=== PATIENT | male | born 1955 | race Caucasian/White ===

== ENCOUNTER → 2016-04-07 | Outpatient (CLI) | payer MEDICARE ==
[~2016-04-07] MED LIST: AC325T PO; ALPR1TAB72 PO; AMOX500C2 PO; ARPZ10T PO; ASP325T; ASP81CT PO; ASPI-808 PO; ATOR40TA70 PO; BUPR-42 PO; BUPR300T PO; BUSP10TA95 PO; CALC-654 PO; CALC0.253 PO; CALC0.5C2; CARV25TA PO; CLON1TAB3 PO; CODE-54 PO; DESV50TA; DOCU-143 PO; DOCU100T7 PO; DOXY-227 PO; FERR-84 PO; FNT100TD TD; FURO20TA4 PO; FURO40TA4 PO; GBPN600T PO; GFCD10B PO; HYDR-3456 PO; INSU100I14 SQ; INSU100V; IPRA3AMP19 IH; LAMO200T14; LAMO200T2 PO; LEVO175T6 PO; LEVO200T6 PO; ME-C1TAB PO; METO25TA PO; MULT-35 PO; NIRAVAM; NOVOLOG PUMP; OMG1KC PO; OXYC-202 PO; PRAV80TA2; PREG75CA PO; SERT100T8 PO; SERT50TA9 PO; SRTR100T; VENL150C53 PO; ZOLP12.5; [UNRECOGNIZED DRUG - OTHER]; venlafaxine PO
--- OUTSIDE RECORDS SUMMARY | 2016-04-07 13:34 | XMS REPORT | Continuity of Care Document ---
Author Author [facility] Organization [facility] Address Unknown Phone Unavailable Care Team Providers Care City Marshal Name Role Phone Humza Kapoor PCP [phone] Source Comments Some departments are not documenting in the electronic medical record. If you do not see the information that you expected, contact Release of Information in the Health Information Management department at [phone] for further assistance in locating additional records.[facility] Active Allergies and Adverse Reactions No Known Allergies Current Medications Prescription Sig. Disp. Refills Start End Date Status Date metoprolol XL (TOPROL XL) Take 12.5 mg by mouth Active 25 mg tablet daily. furosemide (LASIX) 40 mg Take 40 mg by mouth every Active tablet 48 hours. fentaNYL (DURAGESIC) 75 Apply 1 Patch to top of Active mcg/hr patch skin as directed every 72 hours aspirin EC 81 mg tablet Take 81 mg by mouth Active daily. fish oil /omega-3 fatty Take 1 Cap by mouth Active acids (SEA-OMEGA) daily. 340/1000 mg capsule PV W-O NADIA/FERROUS Take by mouth. Active FUMARATE/FA (M-VIT PO) ASCORBATE CALCIUM Take by mouth. Active (VITAMIN C PO) docusate (COLACE) 100 mg Take 100 mg by mouth Active capsule daily. ferrous sulfate 325 mg Take 325 mg by mouth Active (65 mg iron) tablet daily. nitroglycerin (NITROSTAT) Place 0.3 mg under tongue Active 0.3 mg tablet every 5 minutes as needed. ATORVASTATIN CALCIUM Take 40 mg by mouth at Active (LIPITOR PO) bedtime daily. insulin aspart (NOVOLOG) Inject 30 Units into Active 100 unit/mL injection area(s) as directed once. Indications: Uses 30 units daily with insulin pump insulin pump -ASPART- by SubQ Pump route. Active Patients Own gabapentin (NEURONTIN) Take 600 mg by mouth 07/19/19 Active 600 mg tablet three times daily. 16 HYDROcodone/acetaminophen Take 1 Tab by mouth every 05/29/19 Active (+) (LORTAB, NORCO) 6 hours as needed 16 10/325 mg tablet levothyroxine (SYNTHROID) Take 200 mcg by mouth 07/23/19 Active 200 mcg tablet daily. 16 sertraline (ZOLOFT) 100 2.5 Tabs daily. 225 Tab 1 10/20/19 Active mg tablet Indications: DEPRESSION 16 buPROPion XL (WELLBUTRIN Take 1 Tab by mouth every 90 Tab 3 12/31/19 Active XL) 150 mg tablet morning. Indications: 16 ANXIETY WITH DEPRESSION buPROPion XL (WELLBUTRIN Take 1 Tab by mouth every 90 Tab 3 12/31/19 Active XL) 300 mg tablet morning. Indications: 16 ANXIETY WITH DEPRESSION pregabalin (LYRICA) 75 mg Take 75 mg by mouth twice Active capsule daily. busPIRone (BUSPAR) 10 mg Take 1 tablet 3 times a 90 Tab 5 01/07/20 Active tablet day for anxiety 16 clonazePAM (KLONOPIN) 1 For anxiety. Take 1/2 a 45 Tab 4 01/07/20 Active mg tablet tab in AM, 1 tab at 16 night. Indications: Anxiety Active Problems Problem Noted Date Dysthymia 11/07/2013 MDD (major depressive disorder), recurrent, in partial remission (HCC) 05/14 HTN (hypertension) 04/08/2013 HLD (hyperlipidemia) 04/08/2013 CAD (coronary artery disease) 04/08/2013 Hypothyroid 04/08/2013 Diabetes (HCC) 04/08/2013 Anemia 04/08/2013 MARGIE (generalized anxiety disorder) 04/08/2013 Resolved Problems Problem Noted Date Resolved Date MDD (major depressive disorder), recurrent episode, mild (HCC) 10/22/2014 01/07/2016 MDD (major depressive disorder), recurrent episode, moderate (HCC) 201301/07/2016 MDD (major depressive disorder), recurrent episode, severe (HCC) 04/08/2013 01/07/2016 Social History Tobacco Use Types Packs/Day Years Used Date Never Smoker Smokeless Tobacco: Never Used Alcohol Use Drinks/Week oz/Week Comments No 0 Standard 0.0 drinks or equivalent Last Filed Vital Signs Vital Sign Reading Time Taken Blood Pressure 101/74 01/07/2016 11:26 AM CDT Pulse 55 01/07/2016 11:26 AM CDT Temperature - - Respiratory Rate 15 10/08/2015 11:43 AM CDT Height 1.778 m (5' 10") 01/07/2016 11:26 AM CDT Weight 68.947 kg (152 lb) 01/07/2016 11:26 AM CDT Body Mass Index 21.81 01/07/2016 11:26 AM CDT Oxygen Saturation - - Plan of Care Health Maintenance Due Date Last Done Comments Hepatitis C Screening 1954 Physical (Comprehensive) 1961 Exam Pertussis Vaccine 1965 Tetanus Vaccine 1971 Colorectal Cancer 2004 Screening Shingles Vaccine 2014 Influenza Vaccine 12/03/2015 Results from Last 3 Months Not on file
[2016-04-07 13:57] LABS: BASOPHILS % (AUTO) 1 % (0-10); EOSINOPHILS # (AUTO) 0.1 10^3/uL (0.0-0.3); EOSINOPHILS % (AUTO) 2 % (0-10); LYMPHOCYTES # (AUTO) 1.3 X 10^3 (1.0-4.0); LYMPHOCYTES % (AUTO) 23 % (12-44); MEAN CORPUSCULAR HEMOGLOBIN 32 PG (25-34); MEAN CORPUSCULAR HGB CONC 34 G/DL (32-36); MEAN CORPUSCULAR VOLUME 92 FL (80-99); MEAN PLATELET VOLUME 9.6 FL (7.4-10.4); MONOCYTES # (AUTO) 0.5 X 10^3 (0.0-1.0); MONOCYTES % (AUTO) 8 % (0-12); NEUTROPHILS % (AUTO) 67 % (42-75); PLATELET COUNT 155 10^3/uL (130-400); RED BLOOD COUNT 3.93 10^6/uL (4.35-5.85); RED CELL DISTRIBUTION WIDTH 12.8 % (10.0-14.5); WHITE BLOOD COUNT 5.9 10^3/uL (4.3-11.0)
[2016-04-07 13:59] LABS: BILIRUBIN,URINE NEGATIVE (NEGATIVE); KETONES,URINE NEGATIVE (NEGATIVE); LEUKOCYTE ESTERASE ,URINE NEGATIVE (NEGATIVE); NITRITE,URINE NEGATIVE (NEGATIVE); PH,URINE 6 (5-9); PROTEIN,URINE NEGATIVE (NEGATIVE); UROBILINOGEN,URINE NORMAL (NORMAL)
[2016-04-07 14:09] LABS: SQUAMOUS EPITHELIAL CELL,UR RARE /HPF
[2016-04-07 14:12] LABS: INR 0.9 (0.8-1.4); PROTHROMBIN TIME PATIENT 12.3 SEC (12.2-14.7)
[2016-04-07 14:19] LABS: CALCIUM 8.9 MG/DL (8.5-10.1); CREATININE SERUM 1.22 MG/DL (0.60-1.30); POTASSIUM 3.9 MMOL/L (3.6-5.0)
== END ==
LOC: LAB 13:29
PROVIDERS: ATTEND Orthopaedic Surgery
DX: S82.851A Displaced trimalleolar fracture of right lower leg, initial encounter for closed fracture (principal); Z79.01 Long term (current) use of anticoagulants; X58.XXXA Exposure to other specified factors, initial encounter; Y99.8 Other external cause status
CPT/HCPCS: 36415; 80048; 81000; 85025; 85610; 87081

== ENCOUNTER 2016-04-14 10:48 | Inpatient (IN) | payer MEDICARE ==
[~2016-04-14] VITALS: Ht 177.8 cm; Wt 63.6 kg
[~2016-04-14 10:48] MED LIST changes: -ASPI-808 PO; -BUPR-42 PO; -BUSP10TA95 PO; -CALC-654 PO; -CLON1TAB3 PO; -DOCU-143 PO; -FERR-84 PO; -INSU100V; -LEVO200T6 PO; -MULT-35 PO; -OXYC-202 PO; -PREG75CA PO; -SERT100T8 PO; -SERT50TA9 PO
[2016-04-14 14:10] VITALS: BP 112/50
--- OUTSIDE RECORDS SUMMARY | 2016-04-14 14:37 | XMS REPORT | Continuity of Care Document ---
Author Author [facility] Organization [facility] Address Unknown Phone Unavailable Care Team Providers Care Shop And Alteration Tailor Name Role Phone Humza Kapoor PCP [phone] Source Comments Some departments are not documenting in the electronic medical record. If you do not see the information that you expected, contact Release of Information in the Health Information Management department at [phone] for further assistance in locating additional records.[facility] Active Allergies and Adverse Reactions No Known [...]
--- NOTE | 2016-04-14 15:04 | ST Cognitive Linguistic Eval ---
Speech Evaluation-General Medical Diagnosis Onset Date: Mar 30, 2016 Therapy Diagnosis Therapy Diagnosis: Questionable Cognitive Impairment Precautions Precautions/Isolations: Fall Prevention, Standard Precautions Referral Referring Physician: Dr. Aman May Reason for Referral: Evaluation/Treatment Cognitive Screen Speech PLF-Current Status Prior Level of Function The patient denied any previous cognitive, speech, or language deficits prior to or throughout his recent hospitalization. Subjective The patient was recently admitted to [facility] following a right foot amputation. The patient greeted the clinician appropriately and agreed to participate in the cognitive screen on this date. Language Eval: Auditory Comprehends Simple Yes/No Ques: Functional Indent/Objects Multiple [place]: Functional Ident/Pics in Multiple [place]: Functional Follows Complex Directions: Functional Follows General Conversations: Functional Language Eval: Verbal Language Completes Spontaneous Greeting: Functional Produces Auto, Serial Info: Functional Imitates Simple Words/Phrases: Functional Word Finding: Functional Requests Basic Needs: Functional States Basic Personal Info: Functional Expresses Complex Ideas: Functional Cognitive Patient Orientation The patient was alert and oriented x 3. Objective Cognitive Domain Attention: WNL Memory: WNL Problem Solving: Functional Objective Impression The patient demonstrated cognitive linguistic skills within normal limits for completion of ADL's. Communication/Social Cognition Comprehension: 6 Expression: 7 Social Interaction: 7 Problem Solvin Memory: 7 Speech Patient Assess Expression of Ideas/Wants: Expression (4) Understanding V[place]al Content: Understands (4) Brief Interview-Mental Status: Yes Repetition of Three Words: Three (3) Temporal Orientation: Year: Correct (3) Temporal Orientation: Month: Accurate within 5 days(2) Temporal Orientation: Day: Correct (1) Recall : Wear: Yes, no cue required (2) Recall : Color: Yes, no cue required (2) Recall : Bed: Yes, no cue required (2) Speech-Plan Treatment Plan Speech Therapy Treatment Plan: Discontinue ST (eval, only.) Rehab Potential: Good Safety Risks/Education Teaching Recipient: Patient, Family Teaching Methods: Discussion Response to Teaching: Verbalize Understanding Education Topics Provided: Plan of Care Time Speech Therapy Time In: 14:18 Speech Therapy Time Out: 14:43 Total Billed Time: 25 Billed Treatment Time 1, FLORENCIO CURTIS [address] ST Apr 14, 2016 15:03
--- NOTE | 2016-04-14 16:05 | Occupational Therapy Eval ---
OT Evaluation-General/PLF Medical Diagnosis Admission Date Apr 14, 2016 at 14:10 Medical Diagnosis: s/p R BKA Onset Date: Mar 30, 2016 Therapy Diagnosis Therapy Diagnosis: weakness, decreased self care, decreased activity tolerance , decr funct mob Height/Weight Height (Feet): 5 Height (Inches): 10 Weight (Pounds): 160 Weight (Ounces): 9.0 Precautions Precautions/Isolations: Fall Prevention, Standard Precautions Weight Bear Status Weight Bearing Restriction: Weight Bearing/Tolerated Location Restriction: LT FOOT Referral Physician: Lalo Referral Reason: Evaluation/Treatment Medical History Pertinent Medical History: CABG (1997), DM, HTN, ID, Neuropathy, PVD Additional Medical History Depression, anxiety, thyroid disease, anemia, kidney disease. Charcot foot Current History Pt had displaced trimalleolar fx R ankle BKA on 04-12-16 Reviewed History: Yes Social History Home: Apartment (main floor) Current Living Status: Alone Entry Into Home: Level Entry ADL-Prior Level of Function ADL PLOF Comments Pt reported that he was independent with all his basic self care needs prior to ankle fx. He had someone to help him a couple times a month for cleaning and laundry but otherwise managed home care. 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 DME/Equipment Comments One bathroom has a walk in shower with a lip and the other has a bathtub. No grab bars installed Occupation: professor at [employer] Drive Self: Yes OT Current Status Subjective Pt seen in room, up in w/c, agreeable to OT. Pain reported 0/10 at rest and with activity Appearance Alert, cooperative Mental Status/Objective Patient Orientation: Person, Place, Time, Situation Attachments: Other-See Comments (dressing on R lower leg is not to be removed) Current Glasses/Contacts: Yes (reading) Hearing Aids: No Dentures/Partials: No Hand Dominance: Right Upper Extremity ROM WFL bilat. Pt reported some decrease at end range R shoulder. Upper Extremity Sensation No problems with decreased sensation in UEs Upper Extremity Strength Grossly 4/5 bilat Edema: No UE edema noted. Some edema R lower leg ADL-Treatment ADL-Current Pt declined bathing and dressing - will do tomorrow. Functional [place] Measure 0=Not Assessed/NA 4=Minimal Assistance 1=Total Assistance 5=Supervision or Setup 2=Maximal Assistance 6=Modified [place] 3=Moderate Assistance 7=Complete IndependenceIRFPAI Quality Coding Scale 6 Independent with activity with or without an assistive device 5 Patient requires set up or clean up by helper. Patient completes activity by themselves 4 Supervision or touching assist (CGA). [place] provide cues , steadying assist 3 The helper provides less than half the effort to complete the activity 2 The helper provides more than half the effort to complete the activity 1 Dependent. The helper does all the effort to complete an activity 7 Patient refused to complete or attempt activity 9 The patient did not perform the activity before the current illness or injury 88 Not attempted due to Medical conditions or safety concerns Eating (FIM): 7 (No dentures, No help needed to open packages or cut up food) Eating (QC): 6 Transfers (B, C, W/C) (FIM): 4 (Close CGA, FWW. Pt educ for hand placement. pt educ for locking brakes on w/c) Toilet/Commode Transfer (FIM): 4 (Close CGA, FWW, BSC over toilet, grab bar. Pt educ for hand placement, walker placement) Other Treatments Co-tx with PT due to decreased activity tolerance, fatigue after transfer, decreased mobility. OT worked on ADLs, transfers and UE placement/use. PT worked on functional mobility, transfers, LE function. Education OT Patient Education: Modified ADL techniques, Progress toward Goal/Update tx plan (tx plan), Purpose of tx/functional activities, Reviewed precautions, Rehab process, Safety issues, Transfer techniques, Use of adapted equipment Teaching Recipient: Patient Teaching Methods: Demonstration, Discussion Response to Teaching: Verbalize Understanding, Return Demonstration, Reinforcement Needed OT Short Term Goals Short Term Goals Time Frame: Apr 21, 2016 Toileting(FIM): 5 Toilet/Commode Transfer(FIM): 5 Shower Transfer(FIM): 5 Additional Short Term Goals: 2-Verbalize Understanding, 3-ImproveStrength/Lizzy 1=Demonstrate adherence to instructed precautions during ADL tasks. 2=Patient will verbalize/demonstrate understanding of assistive devices/ modifications for ADL. 3=Patient will improve strength/tolerance for activity to enable patient to perform ADL's. OT Fci Goals Steam Turbine Operator Goals Time Frame: May 05, 2016 Eating (FIM): 7 Eating (QC): 6 Oral Hygiene (QC): 6 Grooming(FIM): 6 Bathing(FIM): 6 Shower/Bathe Self (QC): 6 Upper Body Dressing(FIM): 6 Upper Body Dressing (QC): 6 Lower Body Dressing(FIM): 6 Lower Body Dressing (QC): 6 On/Off Footwear (QC): 6 Toileting(FIM): 6 Toileting Hygiene (QC): 6 Transfers (B,C,W/C) (FIM): 6 Toilet/Commode Transfer(FIM): 6 Toilet/Commode Transfer (QC): 6 Shower Transfer(FIM): 6 Increase bilat UE strength to 5/5 as needed for standing with FWW for ADLs and transfers Additional Goals: 2-Verbalize Understanding, 3-ImproveStrength/Lizzy 1=Demonstrate adherence to instructed precautions during ADL tasks. 2=Patient will verbalize/demonstrate understanding of assistive devices/ modifications for ADL. 3=Patient will improve strength/tolerance for activity to enable patient to perform ADL's. OT Education/Plan Problem List/Assessment Assessment: Decreased Activ Tolerance, Decreased UE Strength, Dependent Transfers, Impaired Funct Balance, Impaired Self-Care Skills Pt would benefit from skilled OT to increase his independence in basic self care so that he can return safely to his apartment, to drive and to go back to work after amputation R LE with resultant weakness, decreased functional mobility, decreased self care, decreased activity tolerance Discharge Recommendations Plan/Recommendations: Continue POC Barriers to Progress brittle diabetic, delayed wound healing, neuropathy in L foot Target Placement home Patient/Family Goals To return home and eventually go back to work Treatment Plan/Plan of Care Treatment,Training & Education: Yes Patient would benefit from OT for education, treatment and training to promote independence in ADL's, mobility, safety and/or upper extremity function for ADL' s. Plan of Care: ADL Retraining, Functional Mobility, Group Exercise/Act as Ind ( exercise, education, activity tolerance, functional actiities, socialization), UE Funct Exercise/Act, UE Neuromus Re-Ed/Coord, W/C Management Training Treatment Duration: May 05, 2016 # of days/week 5-6 Visits Per Week: 10-11 Minutes/Day (M-F): 75-90 Minutes/Day (Sat/Barrios): PRN Agreement: Yes Rehab Potential: Good Time/GCodes Start Time: 14:48 Stop Time: 15:50 Total Time Billed (hr/min): 62 Billed Treatment Time Visit, 12 minutes eval moderate complexity, 15 minutes ADL, 35 minutes functional activities Co-tx with PT from 1500 to 1550 NOE VILLEGAS OT Apr 14, 2016 16:05
--- NOTE | 2016-04-14 16:19 | Physical Therapy Evaluation ---
PT Evaluation-General Medical Diagnosis Admission Date Apr 14, 2016 at 14:10 Medical Diagnosis: s/p R BKA Onset Date: Mar 30, 2016 Therapy Diagnosis Therapy Diagnosis: weakness, abn gait Height/Weight Height (Feet): 5 Height (Inches): 10.00 Weight (Pounds): 150 Weight (Ounces): 0.0 Precautions Precautions/Isolations: Fall Prevention, Standard Precautions Weight Bear Status Weight Bearing Restriction: Weight Bearing/Tolerated Location Restriction: LT FOOT Referral Physician: Lalo Reason for Referral: Evaluation/Treatment Medical History Pertinent Medical History: CABG (1997; quadruple), DM, HTN, [place], Neuropathy, PVD Additional Medical History anemia, Renal insufficiency with GFR, DVT, high cholesterol, anxiety, depression Current History Pt initially sustained a calcaneal fracture that was stable. He was using a walking boot; during a follow up physician visit, it was found to have worsened with tibial and fibular involvement; it was decided to perform a BKA on the right LE. Reviewed History: Yes Social History Home: Apartment Current Living Status: Alone Entry Into Home: Level Entry Other Obstacles: Pt lives on the ground apartment. insurance agency manager has informed patient that she is happy to make adaptive modifications to meet his needs. Prior/Core FIM Prior Level of Function Functional [place] Measure 0=Not Assessed/NA 4=Minimal Assistance 1=Total Assistance 5=Supervision or Setup 2=Maximal Assistance 6=Modified [place] 3=Moderate Assistance 7=Complete [place] Bed Mobility: 7 Transfers (B,C,W/C) (FIM): 7 Gait: 7 Pt was indep at [facility]. 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 Reports recent amputation with pain that is manageable using pain meds Q4. Currently he denies pain. Pt has multiple questions about course of care and progress. Pt eager to begin therapy. Pain Numeric Pain Scale: 0-No Pain Location: No Pain Reported Objective Patient Orientation: Person, Place, Time, Situation Problem Solving: Fair (needs cues for problem solving at times) ROM/Strength ROM Lower Extremities WFL Strenght Lower Extremities Left LE strength is grossly 5/5. Right LE strength is grossly 3/5 residual joints Integumentary/Posture Integumentary Intact; refer to nursing notes. Bowel Incontinence: No Bladder Incontinence: No Posture normal and symmetrical Neuromuscular (Tone, Coordination, Reflexes) Intact and functional Sensory Vision: Functional Hearing: Functional Hand Dominance: Right Sensation Right Lower Extremit: Intact Sensation Left Lower Extremity: Intact Transfers Functional [place] Measure 0=Not Assessed/NA 4=Minimal Assistance 1=Total Assistance 5=Supervision or Setup 2=Maximal Assistance 6=Modified [place] 3=Moderate Assistance 7=Complete IndependenceIRFPAI Quality Coding Scale 6 Independent with activity with or without an assistive device 5 Patient requires set up or clean up by helper. Patient completes activity by themselves 4 Supervision or touching assist (CGA). [place] provide cues , steadying assist 3 The helper provides less than half the effort to complete the activity 2 The helper provides more than half the effort to complete the activity 1 Dependent. The helper does all the effort to complete an activity 7 Patient refused to complete or attempt activity 9 The patient did not perform the activity before the current illness or injury 88 Not attempted due to Medical conditions or safety concerns Transfers (B, C, W/C) (FIM): 4 Scootin Rollin Roll Left to Right (QC): 5 Supine to/from Sit: 5 Sit to/from Stand: 4 (CGA and cues for sequencing) bed t/f WC(FIM only if WC use): 4 (CGA) Sit to Lying (QC): 5 Lying to Sitting/Side of Bed(Q: 5 Sit to Stand (QC): 4 Chair/[id number]-Zjmrp Xfer(QC): 4 Car Transfer (QC): 3 (assist to stand and guide turn to the wheelchair using FWW) SBA to CGA with transfers for safety; cues for sequencing and hand placement. Gait Does the Patient Walk?: Yes Mode of Locomotion: Both Anticipated Mode of Locomotion: Both Gait (FIM): 2 Distance (FIM): 2=792-41 ft Walk 10 feet (QC): 4 (CGA with FWW (hopping)) Walk 50 ft with 2 Turns(QC): 4 Walk 150 ft (QC): 88 (unsafe to attempt) Walking 10ft on uneven surface: 88 Distance: 50 ft Gait Level of Assist: 4 (close CGA) Gait Persons Needed: 1 Gait Assistive Device: FWW Comments/Gait Description Pt hops; he is careful and cautious with forward and turns. Requires intermittent cues for sequencing and safety. Wheelchair Training Does the Pt Use a Wheelchair?: Yes Wheelchair (FIM): 5 Wheelchair Distance (FIM): 3=150 ft Wheelchair Level of Assist: 5 Wheel 50 ft with 2 turns (QC): 5 Wheel 150 ft (QC): 5 Type of Wheelchair: Manual cues for brakes, and correct use of UE's and left LE to propel Stairs Stairs (FIM): 1 #of Steps: 1 Level of Assist: 4 1 Step (curb) (QC): 4 (close CGA adn skilled cues) 4 Steps (QC): 88 (unsafe to attempt) Assistive Device: Walker 12 Steps (QC): 88 (unsafe) Balance Sitting Static: Normal Sitting Dynamic: Normal Standing Static: Fair Standing Dynamic: Fair Picking up an Object (QC): 88 (unsafe to attempt to bend over) Treatment Co treat with OT due to complexity of new BKA right. PT and OT worked jointly on functional transfers and mobility in room and keane. OT addressed fine motor , ADL's issues whilst PT addressed functional transfers, balance, safety with gait. Pt had many questions on how self care works with transfers and mobility and together, PT and OT were able to address these questions and needs as well as work on such tasks. Assessment/Needs Pt presents post right BKA following a complicated cancaneal fracture. He demonstrates diminished functional safety and balance as well as compromised problem skills with new tasks. He will significantly benefit from skilled PT services to address functional strength (slight deficit noted right LE), functional and safe transfers, wheelchair mobility and progression of gait. Anticipate limited gait distance due to concern of compromised integrity of left LE with repetiive hopping and his history of DM. Pt will most benefit from a mix of wheelchair and ambulation for mobility in home and primarily wheelchair for community mobility. Rehab Potential: Good Post Rehab Potential-Barriers: complicated medical history PT Short Term Goals Short Term Goals Time Frame: Apr 21, 2016 Transfers (B,C,W/C) (FIM): 5 Gait (FIM): 2 Distance (FIM): 3=165-05 ft Gait Assistive Device: FWW PT Electrotyper Helper Goals Fci Goals PT Fci Goals Time Frame: May 05, 2016 Transfers (B,C,W/C) (FIM): 6 Sit to Lying (QC): 6 Lying-Sitting on Side/Bed(QC): 6 Sit to Stand (QC): 6 Rollin Roll Left to Right (QC): 6 Chair/Cwg-bt-Bgzyq Xfer(QC): 6 Car Transfer (QC): 6 Does the Patient Walk: Yes Gait (FIM): 5 (household distance) Gait distance (FIM): 4=047-11 ft Distance: 50 ft Walk 10 feet (QC): 6 Walk 10ft-Uneven Surface(QC): 6 Walk 50ft with 2 Turns (QC): 6 Walk 150 ft (QC): 88 Gait Level of Assist: 6 Gait Assistive Device: FWW Does the Pt use WC or Scooter?: Yes Wheelchair (FIM): 6 Wheelchair distance (FIM): 3=150 ft Wheelchair Level of Assist: 6 Wheel 50 feet with 2 turns (QC: 6 Stairs (FIM): 2 # of Steps: 4 1 Step (curb) (QC): 5 4 Steps (QC): 5 12 Steps (QC): 88 Stairs Level Of Assist: 4 (cga) Picking up an Object (QC): 88 (unsafe with BKA) Goals are set for patient to be a household ambulator at a mod indep level and wheelchair for longer distances. Goal is for patient to return home alone and care for himself. PT Plan Problem List Problem List: Activity Tolerance, Functional Strength, Safety, Balance, Gait, Transfer, Bed Mobility, ROM Treatment/Plan Treatment Plan: Continue Plan of Care Treatment Plan: Bed Mobility, Education, Functional Activity Lizzy, Functional Strength, Group Therapy, Gait, Safety, Therapeutic Exercise, Transfers Treatment Duration: May 05, 2016 # of days/week 5-6 Visits Per Week: 10-15 Minutes/Day (M-F): 60-90 Minutes/Day (Sat/Barrios): prn Pt/Family Agrees w/Plan: Yes Safety Risks/Education Patient Education: Transfer Techniques, Safety Issues Teaching Recipient: Patient Teaching Methods: Discussion Response to Teaching: Reinforcement Needed Discharge Recommendations Therapy D/C Recommendations: Physical Therapy Home Care Time/GCodes Time In: 1400 (1500) Time Out: 1418 (1550) Total Billed Treatment Time: 68 Total Billed Treatment visit EVM 18 FA 50; co treat with OT x 50 min HERMINIA WALSH PT Apr 14, 2016 16:19
[2016-04-14] MEDS: oxyCODONE/APAP 10/325MG (PERCOCET 10) TABLET PO PRN (16:35)
[2016-04-14] MEDS: FUROSEMIDE 40 MG (LASIX) TAB PO SCH (16:35)
[2016-04-14 18:59] VITALS: BP 97/60
[2016-04-14] MEDS: FENTANYL PATCH REMOVAL TP SCH (19:23)
[2016-04-14] MEDS: fentaNYL PATCH 75 MCG (DURAGESIC) TD SCH (19:23)
[2016-04-14] MEDS: FERROUS SULF 325 MG (IRON) TAB PO SCH (19:23)
[2016-04-14] MEDS: OMEGA 3 (FISH OIL) 1000 MG CAP PO SCH ×2 (19:24→20:58)
[2016-04-14] MEDS ORDERED: HUMALOG INSULIN PUMP SQ SCH (19:45)
[2016-04-14] MEDS: FLEET ENEMA ADULT 1 EA BTL PR PRN (20:21)
[2016-04-14 20:57] VITALS: BP 128/67
[2016-04-14] MEDS: clonazePAM 1 MG (KlonoPIN) TAB PO SCH (20:58)
[2016-04-14] MEDS: DOCUSATE SODIUM 100 MG (COLACE) CAP PO SCH (20:58)
[2016-04-14] MEDS: PREGABALIN 75 MG (LYRICA) CAP PO SCH (20:58)
[2016-04-14] MEDS: busPIRone 10 MG (BUSPAR) TAB PO SCH (20:59)
[2016-04-14] MEDS: ATORVASTATIN 40 MG (LIPITOR) TABLET PO SCH (20:59)
[2016-04-14] MEDS: CALCIUM CARBONATE 600 MG (CALCARB) TAB PO SCH (20:59)
[2016-04-14] MEDS: GABAPENTIN 600 MG (NEURONTIN) TAB PO SCH (21:02)
[2016-04-15] MEDS: oxyCODONE/APAP 10/325MG (PERCOCET 10) TABLET PO PRN ×4 (00:07→21:11)
[2016-04-15 05:43] LABS: BASOPHILS % (AUTO) 0 % (0-10); EOSINOPHILS # (AUTO) 0.1 10^3/uL (0.0-0.3); EOSINOPHILS % (AUTO) 2 % (0-10); LYMPHOCYTES # (AUTO) 0.7 X 10^3 (1.0-4.0); LYMPHOCYTES % (AUTO) 14 % (12-44); MEAN CORPUSCULAR HEMOGLOBIN 32 PG (25-34); MEAN CORPUSCULAR HGB CONC 35 G/DL (32-36); MEAN CORPUSCULAR VOLUME 91 FL (80-99); MEAN PLATELET VOLUME 10.2 FL (7.4-10.4); MONOCYTES # (AUTO) 0.4 X 10^3 (0.0-1.0); MONOCYTES % (AUTO) 7 % (0-12); NEUTROPHILS % (AUTO) 77 % (42-75); PLATELET COUNT 131 10^3/uL (130-400); RED CELL DISTRIBUTION WIDTH 12.6 % (10.0-14.5); WHITE BLOOD COUNT 5.2 10^3/uL (4.3-11.0)
[2016-04-15 05:50] VITALS: BP 137/58
[2016-04-15] MEDS: LEVOTHYROXINE 100 MCG (LEVOTHROID) TAB PO SCH (06:08)
[2016-04-15] MEDS: MULTIVIT W/MINERALS TAB (THERAGRAN M) PO SCH (06:08)
[2016-04-15] MEDS: buPROPion SR 100 MG (WELLBUTRIN SR) TAB PO SCH ×2 (06:08→16:48)
[2016-04-15 06:17] LABS: ALBUMIN 3.1 G/DL (3.2-4.5); BILIRUBIN,TOTAL 0.4 MG/DL (0.1-1.0); CALCIUM 8.7 MG/DL (8.5-10.1); CREATININE SERUM 1.24 MG/DL (0.60-1.30); POTASSIUM 3.9 MMOL/L (3.6-5.0); TOTAL PROTEIN 5.2 G/DL (6.4-8.2)
[2016-04-15] MEDS ORDERED: LEVOTHYROXINE 150 MCG (LEVOTHROID) TAB PO SCH (06:30)
--- NOTE | 2016-04-15 07:10 | HISTORY AND PHYSICAL ---
DATE OF ADMISSION: 04/14/2016 CHIEF COMPLAINT: Difficulty with walking. HISTORY OF THE PRESENT ILLNESS: This is a 61-year-old male with type I diabetes mellitus mamaged with an insulin pump with severe diabetic peripheral neuropathy for which he takes Duragesic patch at home prescribed through his PCP Dr. Kapoor, as well as gabapentin and Lyrica.His psychotropics are prescribed through [facility] for treatment of Anxiety and depression. He developed Charcot joint in the right ankle with instability followed by Dr. Moreno on an outpatient basis. He went on to have a right BKA due to severe Charcot joint of the right ankle with severe instability of the ankle with it being nonfunctional for weight-bearing. He reports that his left leg is okay but he has severe peripheral neuropathy, decreased sensation in that as well. He underwent a right BKA at [facility]. He lives alone in [place] in a wheelchair accessible apartment. He is but has a supportive family nearby. 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 He had been modified independent with a knee scooter prior to this. Currently he is min assist for transfers. Min assist for hopping with a front wheel walker, standby assist for wheelchair propulsion. He has good upper body strength. He reports using a Fleet Enema every 3rd evening when he changes his Duragesic patch for apparent opioid induced constipation. He is reported to be continent of bowel and bladder. He is independent for eating. Set up for grooming at the wheelchair level, min assist for upper body dressing. Mod assist for lower body dressing and toileting. PAST MEDICAL HISTORY: 1. Type 1 diabetes mellitus has an insulin pump [employer]. 2. Coronary artery disease. 3. Diabetic peripheral neuropathy. 4. Chronic neuropathic pain. 5. Hypertension. 6. [place]. 7. Peripheral vascular disease. 8. Hypercholesteremia. 9. Anxiety. 10. Depression. 11. DVT. 12. Renal sufficiency. 13. Anemia. PAST SURGICAL HISTORY: 1. CABG in 1997 quadruple bypass. 2. Recent right BKA as per above. ALLERGIES: No known medication allergies. FAMILY HISTORY: Noncontributory. SOCIAL HISTORY: , lives in ground level wheelchair accessible apartment. 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 REVIEW OF SYSTEMS: Ten-point review of systems significant neuropathic pain, decreased sensation in left foot, constipation. MEDICATIONS: 1. ASA 325 mg p.o. daily. 2. Clonazepam 0.5 mg p.o. daily. 3. Zoloft 250 mg p.o. daily. 4. Multivitamins with minerals 1 tablet p.o. daily. 5. Wellbutrin SR 200 mg p.o. b.i.d. with meals. 6. Levothyroxine 200 mcg p.o. daily. 7. Lipitor 40 mg p.o. at bedtime. 8. Toprol-XL 12.5 mg p.o. at bedtime. 9. BuSpar 10 mg p.o. t.i.d. 10. Clonazepam 1 mg p.o. at bedtime. 11. Gabapentin 600 mg p.o. t.i.d. 12. Lyrica 75 mg p.o. b.i.d. 13. Calcium carbonate 600 mg p.o. at bedtime. 14. Colace 100 mg p.o. b.i.d. 15. Fish oil 1000 mg p.o. daily. 16. Ferrous sulfate 325 mg p.o. at evening. 17. Fentanyl patch 75 mcg q.3 days. 18. Furosemide 20 mg every other day, 19. Percocet generic 10/325, 1 tablet p.o. q.4 hours p.r.n. moderate pain. 20. Fleet enema every 3rd day with Duragesic patch change. PHYSICAL EXAMINATION: Significant for a pleasant male, appearing his stated age, alert and oriented in no acute distress. VITAL SIGNS: He is afebrile. Pulse 72, respirations 20, blood pressure 112/50 O2 sat 100% on room air. HEENT: Vision, speech, hearing, grossly intact, no oral lesion is noted. NECK: Supple without mass. HEART: Regular rhythm. LUNGS: Clear. ABDOMEN: Soft, nontender. Bowel sounds present. EXTREMITIES: No lower edema. No calf tenderness on the left. On the right BKA is dressed. MUSCULOSKELETAL: The patient has functional active range of motion in both upper extremities, left lower extremity at the right hip. NEUROLOGIC: Cognitively grossly intact strength both upper extremities, left lower extremity grossly 5/5. Right lower extremity 3/5 at the hip. He is reported to be continent of bowel and bladder. He has a decreased sensation to touch in the left foot IMPRESSION: 1. Ambulatory dysfunction secondary to Charcot joint with resulting instability in right ankle, requiring right BKA, [place] [facility] [place] Dr. Moreno, nonweightbearing right lower extremity. 2. Insulin-dependent diabetes mellitus. The patient has control of his own insulin pump. 3. Diabetic peripheral neuropathy on chronic pain medications as well as Lyrica and gabapentin. 4. Depression/anxiety, on medications outlined above. 5. Anemia. 6. Coronary artery disease, status post CABG, remote. 7. Hypertension, controlled with medication. 8. Peripheral vascular disease. 9. Hypercholesteremia. 10. Renal insufficiency. 11. History of DVT. 12. Opioid induced constipation; the patient utilizes Fleet enema every 3rd evening. PLAN: The patient will have a comprehensive program of inpatient rehabilitation with the goal of maximizing level of functional dependence prior to discharge home with home health care and family to assist. The patient will have PT/OT 90 minutes day, each discipline, 5 days week for gait strengthening, conditioning, ADLs, focus on wheelchair level of function due to right BKA. ADL training, any patient/family/caregiver training necessary, any adaptive equipment and training necessary, and follow-up with Dr. Moreno as per his schedule. He indicates he wants the dressing left on until he sees patient follow-up in about 2 weeks. Speech therapy to do cognitive assessment; they have done and found him to be functionally intact and signed off. Rehabilitation nursing to assist with bowel, bladder, skin care, medication administration, pain management. career services coordinator assist with discharge planning, community reentry. sample worker to assist with discharge planning, community reentry as necessary. Check labs in a.m. and Accu-Cheks q.i.d. before meals and at bedtime. The patient will operate his own insulin pump controls. Consult Dr. Wright et al Hospitalist service for medical management. Follow-up with Dr. Moreno as per above. DIET: Carb consistent. CODE STATUS: Full code. Therapy with cardiac and fall precautions. The patient is nonweightbearing right lower extremity POST ADMISSION PHYSICIAN ASSESSMENT: The preadmission screen agrees with the post admission assessment that the patient is a good candidate for inpatient rehabilitation. He appears to be well motivated to participate in 3 hours of therapy a day. He should be able to tolerate 3 hours of therapy a day from a medical and surgical standpoint. He should benefit from the 3 hours of therapy a day. He has a reasonable discharge plan, reasonable discharge rehabilitation goals and a supportive family. We will follow-up regarding Lovenox subcutaneous for DVT prophylaxis. He has various comorbidities that need to be closely monitored with medications and treatments adjusted on a daily basis as needed. These include his insulin-dependent diabetes mellitus, ongoing pain management for his diabetic peripheral neuropathy as well as hypertension and continuation of his psychotropic medications as outlined above. Barriers to discharge for this patient who had been modified prior independent are for him to be modified independent to supervision for ADLs and mobility skills at the wheelchair level of function prior to discharge back to wheelchair accessible apartment. Risks for this patient include: 1. Fall. 2. Fracture. 3. DVT. 4. Pulmonary embolism. 5. Urinary retention. 6. UTI. 7. Respiratory infection. 8. Aspiration. 9. Poorly controlled pain. 10. Contractures. 11. Poorly controlled hypertension . 12. Poorly controlled diabetes mellitus. Job ID: [id number] Dictated Date: 04/14/2016 18:38:31 Recreation Therapy Teacher Date: 04/15/2016 06:42:45/aayush RUCKER
[2016-04-15] MEDS: ASPIRIN E.C. 325 MG (ECOTRIN) TABLET PO SCH (08:28)
[2016-04-15] MEDS: PREGABALIN 75 MG (LYRICA) CAP PO SCH ×2 (08:28→21:11)
[2016-04-15] MEDS: DOCUSATE SODIUM 100 MG (COLACE) CAP PO SCH ×2 (08:28→21:11)
[2016-04-15] MEDS: OMEGA 3 (FISH OIL) 1000 MG CAP PO SCH ×4 (08:28→21:11)
[2016-04-15] MEDS: SERTRALINE 100 MG (ZOLOFT) TAB PO SCH (08:28)
[2016-04-15] MEDS: GABAPENTIN 600 MG (NEURONTIN) TAB PO SCH ×3 (08:28→21:11)
[2016-04-15] MEDS: busPIRone 10 MG (BUSPAR) TAB PO SCH ×3 (08:29→21:11)
[2016-04-15] MEDS: clonazePAM 0.5 MG (KlonoPIN) TAB PO SCH (08:29)
--- NOTE | 2016-04-15 08:51 | PM & R (SOAP) Progress Note ---
Subjective Subjective/Events-last exam Patient was seen in his room this AM Adjusting well to unit Patient min assist for transfers.Accuchecks quite high and patient managing own Insulin Pump -Will f/u with him re optimizing control Patient not on anything for DVT Prophylaxis- Cuurent labs reviewed Will start Lovenox SubCUTDiscussed patient' s current meds with him last evening He obtains Psych meds from [facility] and Pain meds from PCP Review of Systems Musculoskeletal: : foot pain: hand pain Neurological: : Numbness Objective Exam Last Set of Vital Signs Vital Signs Date Time Temp Pulse Resp B/P Pulse Ox O2 Delivery O2 Flow Rate FiO2 04/15/16 05:50 98.7 62 16 137/58 98 Room Air Capillary Refill : I&O Bad tableGeneral: Alert, Oriented X3, Cooperative, No Acute Distress HEENT: Atraumatic, PERRLA, EOMI, Mucous Memb Moist/[place] Neck: Supple, No JVD Lungs: Clear to Auscultation Heart: Regular Rate Abdomen: Normal Bowel Sounds, Soft, No Tenderness Extremities: Other (RT BKA wrapped and trace edema left leg good strength throughout) Results Lab Laboratory Tests 04/14/16 15:58: Glucometer 286H 04/14/16 20:04: Glucometer 208H 04/15/16 05:18: Alanine Aminotransferase (ALT/SGPT) 11, Albumin 3.1L, Alkaline Phosphatase 70, Anion Gap 12, Aspartate Amino Transf (AST/SGOT) 29, BUN/Creatinine Ratio 13, Basophils # (Auto) 0.0, Basophils (%) (Auto) 0, Blood Urea Nitrogen 16, Calcium Level 8.7, Carbon Dioxide Level 29, Chloride Level 96L, Creatinine 1.24, Eosinophils # (Auto) 0.1, Eosinophils (%) (Auto) 2, Estimat Glomerular Filtration Rate 59, Glucose Level 363H, Hematocrit 28L, Hemoglobin 9.8L, Lymphocytes # (Auto) 0.7L, Lymphocytes (%) (Auto) 14, Mean Corpuscular Hemoglobin 32, Mean Corpuscular Hemoglobin Concent 35, Mean Corpuscular Volume 91, Mean Platelet Volume 10.2, Monocytes # (Auto) 0.4, Monocytes (%) (Auto) 7, Neutrophils # (Auto) 4.0, Neutrophils (%) (Auto) 77H, Platelet Count 131, Potassium Level 3.9, Red Blood Count 3.10L, Red Cell Distribution Width 12.6, Sodium Level 137, Total Bilirubin 0.4, Total Protein 5.2L, White Blood Count 5.2 04/15/16 05:39: Glucometer 365H Assessment/Plan Assessment s/p rt BKA for Charcot foot with instability Type 1 DM has Insulin pump with poor control at this point 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 and Gabapentin and Lyrica Depression/Anxiety on meds via [facility] Postop anemia on replacement DVT Prophylaxis Start Lovenox SUBCUT Plan Continue PT/OT ST has signed off DR Moreno managing wound care Lovenox Sub cut for dvt Prophylaxis Continue replacement for Anemia Ongoing Pain management Hospitalist consulted F/U re better Type 1 DM control RADHA GUPTA MD Apr 15, 2016 08:51
[2016-04-15] MEDS ORDERED: buPROPion XL 150 MG (WELLBUTRIN XL) NON-FORM PO SCH (09:00)
--- NOTE | 2016-04-15 09:07 | Physical Therapy Daily Note ---
PT Daily Note-Current Subjective Agreeable to PT. no complaints. Mental Status Patient Orientation: Person, Place, Time, Situation Transfers Functional Ewing Measure 0=Not Assessed/NA 4=Minimal Assistance 1=Total Assistance 5=Supervision or Setup 2=Maximal Assistance 6=Modified Ewing 3=Moderate Assistance 7=Complete IndependenceIRFPAI Quality Coding Scale 6 Independent with activity with or without an assistive device 5 Patient requires set up or clean up by helper. Patient completes activity by themselves 4 Supervision or touching assist (CGA). [place] provide cues , steadying assist 3 The helper provides less than half the effort to complete the activity 2 The helper provides more than half the effort to complete the activity 1 Dependent. The helper does all the effort to complete an activity 7 Patient refused to complete or attempt activity 9 The patient did not perform the activity before the current illness or injury 88 Not attempted due to Medical conditions or safety concerns Transfers (B, C, W/C) (FIM): 4 (CGA) CGA with all SPT which were performed multiple times throughout the treatment. Performed transfer with FWW as well as the direct approach with 180 degree turn to from the surface. Pt needed occas cues to push up from the chair for safe transfer. Wheelchair Training Wheelchair (FIM): 5 Wheelchair Distance: 3=150 ft Distance: 30o ft x 2 and 150 ft. Wheelchair Level of Assist: 5 Skilled cues and education on correct usage of wheelchair brakes to prepare for transfer Exercises Supine Ex: Quad Set, Heel Slides, Short Arc Quads, Straight leg raise, Hip abd/ add Supine Reps: 10 NuStep Minutes: 10 Assessment Current Status: Good Progress Pt cooperative; demonstrates good recall of safety with only occas cues. 1 LOB with sit to stand to prepare for transfer and recovered without additional assist. PT Short Term Goals Short Term Goals Time Frame: Apr 21, 2016 Transfers (B,C,W/C) (FIM): 5 Gait (FIM): 2 Distance (FIM): 5=145-41 ft Gait Assistive Device: FWW PT Home Weatherizing Worker Goals Retirement Goals PT Retirement Goals Time Frame: May 05, 2016 Transfers (B,C,W/C) (FIM): 6 Sit to Lying (QC): 6 Lying-Sitting on Side/Bed(QC): 6 Sit to Stand (QC): 6 Rollin Roll Left to Right (QC): 6 Chair/Upx-wp-Kgats Xfer(QC): 6 Car Transfer (QC): 6 Does the Patient Walk: Yes Gait (FIM): 5 (household distance) Gait distance (FIM): 4=933-18 ft Distance: 50 ft Walk 10 feet (QC): 6 Walk 10ft-Uneven Surface(QC): 6 Walk 50ft with 2 Turns (QC): 6 Walk 150 ft (QC): 88 Gait Level of Assist: 6 Gait Assistive Device: FWW Does the Pt use WC or Scooter?: Yes Wheelchair (FIM): 6 Wheelchair distance (FIM): 3=150 ft Wheelchair Level of Assist: 6 Wheel 50 feet with 2 turns (QC: 6 Stairs (FIM): 2 # of Steps: 4 1 Step (curb) (QC): 5 4 Steps (QC): 5 12 Steps (QC): 88 Stairs Level Of Assist: 4 (cga) Picking up an Object (QC): 88 (unsafe with BKA) PT Plan Problem List Problem List: Activity Tolerance, Functional Strength, Safety, Balance, Gait, Transfer Treatment/Plan Treatment Plan: Continue Plan of Care Treatment Plan: Bed Mobility, Education, Functional Activity Lizzy, Functional Strength, Group Therapy, Gait, Safety, Therapeutic Exercise, Transfers Treatment Duration: May 05, 2016 Visits Per Week: 10-15 Minutes/Day (M-F): 60-90 Minutes/Day (Sat/Barrios): prn Safety Risks/Education Patient Education: Transfer Techniques, Safety Issues Teaching Recipient: Patient Teaching Methods: Discussion Response to Teaching: Verbalize Understanding, Reinforcement Needed Time/GCodes Time In: 800 Time Out: 900 Total Billed Treatment Time: 60 Total Billed Treatment visit WC 20 EX 25 FA 15 HERMINIA WALSH PT Apr 15, 2016 09:07
--- NOTE | 2016-04-15 10:05 | Individualized Plan of Care ---
Individualized Plan of Care Rehab Nursing IPOC Order Admission Date Apr 14, 2016 at 14:10 Current Orders Orders-RADHA GUPTA MD Admission Arrival Bed Request (04/14/16 14:14) Nursing Communication (Pt.Care (04/14/16 14:31) Nursing Communication (Pt.Care (04/14/16 14:31) Nursing Communication (Pt.Care (04/14/16 14:34) Admission-Acute Rehab Unit (04/14/16 14:35) Vital Signs: Routine 08,16,00 (04/14/16 14:35) Social Service (04/14/16 14:35) Rehab Nursing Orders-Ipoc (04/14/16 14:35) Physical Therapy Rehab Orders (04/14/16 14:35) Occupational Therapy Rehab Ord (04/14/16 14:35) Speech Therapy Rehab Orders (04/14/16 14:35) Cho 60g/M 1snack (16-2000 Marcelo) (04/14/16 Dinner) Turn And Reposition Q2HR (04/14/16 14:35) Intake & Output Shift Assessme 06,14,22 (04/14/16 14:35) Weight Bearing Status (04/14/16 14:35) Precautions (Aru) (04/14/16 14:35) Weekly Weight (Lbs) WEEK (04/14/16 14:35) Cbc With Automated Diff (04/15/16 06:00) Comprehensive Metabolic Panel (04/15/16 06:00) Consult Physician (04/14/16 14:40) Accucheck Achs ACHS (04/14/16 14:41) Nursing Communication (Pt.Care (04/14/16 14:42) Aspirin Enteric Coated Tablet (Ecotrin T (04/15/16 09:00) Metoprolol Succinate (Xl) Tab (Toprol Xl (04/14/16 21:00) Buspirone Tablet (Buspar Tablet) (04/14/16 21:00) Clonazepam Tablet (Klonopin Tablet) (04/14/16 21:00) Clonazepam Tablet (Klonopin Tablet) (04/15/16 09:00) Atorvastatin Tablet (Lipitor) (04/14/16 21:00) Sertraline Tablet (Zoloft Tablet) (04/15/16 09:00) Bupropion Xl Tab (Non-Form) (Wellbutrin (04/15/16 09:00) Furosemide Tablet (Lasix Tablet) (04/14/16 15:00) Gabapentin Capsule/Tablet (Neurontin Cap (04/14/16 21:00) Pregabalin Capsule (Lyrica Capsule) (04/14/16 21:00) Therapeutic Multivitamin Tab (Vitamins, (04/15/16 07:00) [place] 3 Capsule (Fish Oil Capsule) (04/14/16 17:00) Ferrous Sulfate Tablet (Feosol Tablet) (04/14/16 17:00) Calcium Carbonate Tablet (Calcarb 600 Ta (04/14/16 21:00) Levothyroxine Tablet (Synthroid Tablet) (04/15/16 06:30) Docusate Sodium Capsule (Colace Capsule) (04/14/16 21:00) Oxycodone/Acet 10/325mg Tablet (Percocet (04/14/16 15:00) Pharmacy Communication (Pharmacy Communi (04/14/16 15:00) Nursing Communication (Pt.Care (04/14/16 15:00) Patient Visit (04/14/16 ) Speech Sound Lang Comp (04/14/16 ) Levothyroxine Tablet (Synthroid Tablet) (04/15/16 06:30) Bupropion Sr 12 Hr Tablet (Wellbutrin Sr (04/15/16 07:00) Pharmacy Communication (Pharmacy Communi (04/14/16 15:30) Patient Visit (04/14/16 ) Pt Eval Moderate Complexity (04/14/16 ) Functional Activities, Ea 15 (04/14/16 ) Fentanyl Patch (Duragesic Patch) (04/14/16 16:30) Patch Removal (Patch Removal) (04/14/16 16:29) Na Phos/Na Biphos Enema (Fleet Enema Sergio (04/14/16 18:30) Patient May Use Own Med,Single (Patient (04/14/16 19:45) PT IPOC Problem List: Activity Tolerance, Functional Strength, Safety, Balance, Gait, Transfer Treatment Plan: Continue Plan of Care Bed Mobility, Education, Functional Activity Lizzy, Functional Strength, Group Therapy, Gait, Safety, Therapeutic Exercise, Transfers Treatment Duration: May 05, 2016 Visits Per Week: 10-15 Minutes/Day (M-F): 60-90 Minutes/Day (Sat/Barrios): prn OT IPOC Problems: Decreased Activ Tolerance, Decreased UE Strength, Dependent Transfers , Impaired Funct Balance, Impaired Self-Care Skills OT Problems Pt would benefit from skilled OT to increase his independence in basic self care so that he can return safely to his apartment, to drive and to go back to work after amputation R LE with resultant weakness, decreased functional mobility, decreased self care, decreased activity tolerance Plan of Care: ADL Retraining, Functional Mobility, Group Exercise/Act as Ind ( exercise, education, activity tolerance, functional actiities, socialization), UE Funct Exercise/Act, UE Neuromus Re-Ed/Coord, W/C Management Training Treatment Duration: May 05, 2016 Visits Per Week: 10-11 Minutes/Day (M-F): 75-90 Minutes/Day (Sat/Barrios): PRN ST IPOC Speech Therapy Treatment Plan: Discontinue ST (eval, only.) Physician IPOC Medical Issues being managed closely and that require the 24 hour availability of a physician:pain management and management of poorly controlled DM Medical Issues: Bowel/Bladder Function, DVT Prophylaxis, Falls Precautions, Fluid/Electrolyte/Nutrition Balance, Infection Protection, Pain Management, Weight Bearing Precautions, Wound Care, Other (List) (as per above) Brief Synthesis of Preadmission Screen, Post-Admission Evaluation, and Therapy Evaluations: 61 yo male with longstanding Type 1 DM managed with Insulin pump who had rt BKA with Dr Moreno at [facility] for Charcot Joint with ankle instability due to severe Diabetic Peripheral Neuropathy.On Chronic pain meds and uses an enema q3 days for OIC.On Various Psych meds provided thru [facility] for tratment of anxiety and Depression.Pain meds provide thru PCP in [place].Had been Mod independet with a knee scooter prior to this and 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
--- NOTE | 2016-04-15 11:03 | Consultation-Hospitalist ---
HPI History of Present Illness: HPI/Chief Complaint CC: Medical management of type I diabetic status post right below the knee amputation POD # 3 HPI: This is a 61-year-old white male clinic patient of Dr. 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 the presents after an uncomplicated right below the knee amputation due to severe Charcot foot with extreme orthopedic dysfunction that underwent a consultation in [place] for fusion but patient declined that due to infection risk and had the surgery in [place] at [facility]. He has an insulin pump which she is managing under endocrinology orders and he has been placed back on fentanyl patch of which he's been on for multiple years due to severe neuropathy and overall chronic pain. He does receive an enema every 3 days due to colonic dysfunction from diabetes and overall he denies any significant problems and is very impressed with the inpatient rehabilitation facility in facilitating his recovery. 1. Type 1 diabetes mellitus has an insulin pump Medtronic. 2. Coronary artery disease. 3. Diabetic peripheral neuropathy. 4. Chronic neuropathic pain. 5. Hypertension. 6. OR. 7. Peripheral vascular disease. 8. Hypercholesteremia. 9. Anxiety. 10. Depression. 11. DVT. 12. Renal sufficiency. 13. Anemia. Source: patient Exam Limitations: no limitations Date Seen 04/15/16 Attending Physician Aman May MD PCP Humza Kapoor MD Referring Physician Date of Admission Apr 14, 2016 at 14:10 Home Medications & Allergies Home Medications Reviewed patient Home Medication Reconciliation Form Allergies Coded Allergies: No Known Drug Allergies (Unverified , 07/04/09) Past Ibnntdb-Rmbxcb-Thmhzu Hx Patient Social History Marrital Status: single Employed/Student: employed Alcohol Use: Denies Use Recreational Drug Use: No Smoking Status: Former Smoker Type Used: Pipe Physical Abuse Screen: No Sexual Abuse: No Recent Foreign Travel: No Contact w/other who traveled: No Recent Hopitalizations: Yes Recent Infectious Disease Expo: No Immunizations Up To Date Tetanus Booster (TDap): More than 5yrs Date of Pneumonia Vaccine: Jan 02, 2012 Date of Influenza Vaccine: Jan 13, 2016 Seasonal Allergies Seasonal Allergies: No Surgeries HX Surgeries: Yes Surgeries: Amputation (TIANNA Moreno 04/12/16), CABG, Orthopedic, Vascular Surgery Respiratory Hx Respiratory Disorders: No Cardiovascular Hx Cardiovascular Disorders: Yes Cardiac Disorders: Coronary Artery Disease, Heart Attack, High Cholesterol, Hypertension, Peripheral Vascular Neurological Hx Neurological Disorders: Yes (PERIPHERAL NEUROPATHY) Neurological Disorders: Neuropathy Reproductive System Hx Reproductive Disorders: No Sexually Transmitted Disease: No HIV/AIDS: No Genitourinary Hx Genitourinary Disorders: Yes Genitourinary Disorders: Renal Failure Gastrointestinal Hx Gastrointestinal Disorders: No Musculoskeletal Hx Musculoskeletal Disorders: Yes Musculoskeletal Disorders: Amputee, Fractures Endocrine Hx Endocrine Disorders: Yes (TYPE 1 DIABETIC X 50 YEARS) Endocrine Disorders: Parathyroid Disease, Diabetes, Insulin dep, Hypothyroidsim HEENT HX ENT Disorders: No (READING GLASSES) Loss of Vision: Denies Hearing Impairment: Denies Cancer Hx Cancer: No Psychosocial Hx Psychiatric Problems: Yes Behavioral Health Disorders: Anxiety, Depression Integumentary HX Skin/Integumentary Disorder: No Blood Transfusions Hx Blood Disorders: No Adverse Reaction to a Blood Tr: No Family Medical History Significant Family History: Heart Disease, Cancer, Diabetes Family Hx: Cardiovascular disease 19 MOTHER Review of Systems Constitutional: see HPI EENTM: no symptoms reported Respiratory: no symptoms reported Cardiovascular: no symptoms reported Gastrointestinal: constipation Musculoskeletal: no symptoms reported Skin: no symptoms reported Psychiatric/Neurological: Depressed All Other Systems Reviewed Negative Unless Noted: Yes Physical Exam Physical Exam Vital Signs Vital Sign - Last 12Hours 04/14/16 14:10 Temp 97.7 Pulse 72 Resp 20 B/P 112/50 Pulse Ox 100 O2 Delivery Room Air Capillary Refill : General Appearance: No Apparent Distress WD/WN Chronically ill Eyes: Bilateral Eye Normal Inspection, Bilateral Eye PERRL HEENT: PERRL/EOMI Normal ENT Inspection Pharynx Normal Neck: Full Range of Motion Normal Inspection Non Tender Supple Carotid Bruit Respiratory: Chest Non Tender Lungs Clear Normal Breath Sounds No Accessory Muscle Use No Respiratory Distress Cardiovascular: Regular Rate, Rhythm No Edema No Gallop No JVD No Murmur Normal Peripheral Pulses Gastrointestinal: Normal Bowel Sounds No Organomegaly No Pulsatile Mass Non Tender Soft Back: Normal Inspection No CVA Tenderness No Vertebral Tenderness Extremity: Normal Capillary Refill Normal Inspection Normal Range of Motion ( RBKA ) Non Tender No Calf Tenderness No Pedal Edema Neurologic/Psychiatric: Alert Oriented x3 No Motor/Sensory Deficits Normal Mood/Affect Skin: Normal Color Warm/Dry Lymphatic: No Adenopathy Results Results/Procedures Lab Laboratory Tests 04/15/16 05:18 Assessment/Plan Admission Diagnosis Assessment: Debility following right below the knee amputation by Dr. Moreno uncomplicated Problem list per Dr Ravi 1. Type 1 diabetes mellitus has an insulin pump Medtronic. 2. Coronary artery disease. 3. Diabetic peripheral neuropathy. 4. Chronic neuropathic pain. 5. Hypertension. 6. OR. 7. Peripheral vascular disease. 8. Hypercholesteremia. 9. Anxiety. 10. Depression. 11. DVT. 12. Renal sufficiency. 13. Anemia. 14. chronic constipation requiring enema every 3 days Assessment and Plan Continue fentanyl patch Insulin pump Lovenox for DVT prophylaxis until more mobile Monitor closely Clinical Quality Measures DVT/VTE Risk/Contraindication: Risk Factor Score Per Nursin RFS Level Per Nursing on Admit: 4+=Very High HOWARD HILTON DO Apr 15, 2016 11:03
[2016-04-15] MEDS: ENOXAPARIN 40 MG/0.4 ML (LOVENOX) SYR SC SCH (11:43)
--- NOTE | 2016-04-15 13:15 | Occupational Ther Daily Note ---
OT Current Status-Daily Note Subjective Pt seen in room, up in recliner, agreeable to OT. No pain mentioned. Appearance Alert, cooperative Mental Status/Objective Functional [place] Measure 0=Not Assessed/NA 4=Minimal Assistance 1=Total Assistance 5=Supervision or Setup 2=Maximal Assistance 6=Modified [place] 3=Moderate Assistance 7=Complete [place] Attachments: Other-See Comments (insulin pump) ADL-Treatment Functional [place] Measure 0=Not Assessed/NA 4=Minimal Assistance 1=Total Assistance 5=Supervision or Setup 2=Maximal Assistance 6=Modified [place] 3=Moderate Assistance 7=Complete IndependenceIRFPAI Quality Coding Scale 6 Independent with activity with or without an assistive device 5 Patient requires set up or clean up by helper. Patient completes activity by themselves 4 Supervision or touching assist (CGA). [place] provide cues , steadying assist 3 The helper provides less than half the effort to complete the activity 2 The helper provides more than half the effort to complete the activity 1 Dependent. The helper does all the effort to complete an activity 7 Patient refused to complete or attempt activity 9 The patient did not perform the activity before the current illness or injury 88 Not attempted due to Medical conditions or safety concerns Eating (FIM): 7 (Pt reported he has been able to feed himse.f with no assistance or setup. No dentures) Eating (QC): 6 Grooming (FIM): 6 (Pt reported he was able to comb hair, brush his teeth and shave by himself, getting out suspplies, at a w/c level, in the bathroom. He washed face and hands in shower) Oral Hygiene (QC): 6 Toileting Hygiene (QC): 4 Bathing (FIM): 4 (CGA when standing to wash and dry bottom. pt was able to wash all other body parts, seated, setup. SHower bench, grab bars, hand held shower. R residual leg covered with plastic for shower) Upper Body (FIM): 5 (setup) Upper Body Dressing (QC): 5 Lower Body Dressing (FIM): 4 (CGA when standing to pull pants up and down. Able to get pants over feet and pull them up. Able to get slipper sock on and shoe/sock off, setup) Lower Body Dressing (QC): 4 (CGA) On/Off Footwear (QC): 5 (setup) Toileting (FIM): 4 (CGA when standing to manage clothing, FWW, BSC over toilet , grab bar. Able to manage hygiene when seated. Able to use urinal but does not empty it) Transfers (B, C, W/C) (FIM): 4 (CGA, FWW) Toilet/Commode Transfer (FIM): 4 (CGA, FWW, BSC over toilet, grab bar) Toilet Transfer (QC): 4 Shower Transfer(FIM): 4 (CGA, shower bench, grab bar, FWW) Shower/Bathe Self (QC): 4 Other Treatment Pt education on balancing with FWW when managing clothing for dressing or toileting, when doing shower transfer, when one hand is needed. Pt educ on balance for when standing at sink and standing in shower and freeing up one hand to use during activities. Discussed tub and shower arrangement at home. Pt may benefit from transfer tub bench, getting glass door removed from walk in shower and replaced with shower curtain. Pt provided with photo of transfer tub bench. Education OT Patient Education: Modified ADL techniques, Progress toward Goal/Update tx plan, Purpose of tx/functional activities, Safety issues, Transfer techniques Teaching Recipient: Patient Teaching Methods: Demonstration, Discussion Response to Teaching: Verbalize Understanding, Return Demonstration OT Short Term Goals Short Term Goals Time Frame: Apr 21, 2016 Toileting(FIM): 5 Transfers (B,C,W/C) (FIM): 5 Toilet/Commode Transfer(FIM): 5 Shower Transfer(FIM): 5 Additional Short Term Goals: 2-Verbalize Understanding, 3-ImproveStrength/Lizzy 1=Demonstrate adherence to instructed precautions during ADL tasks. 2=Patient will verbalize/demonstrate understanding of assistive devices/ modifications for ADL. 3=Patient will improve strength/tolerance for activity to enable patient to perform ADL's. OT Vice President Of Talent Management Goals Vice President Of Talent Management Goals Time Frame: May 05, 2016 Eating (FIM): 7 Eating (QC): 6 Oral Hygiene (QC): 6 Grooming(FIM): 6 (standing level) Bathing(FIM): 6 Shower/Bathe Self (QC): 6 Upper Body Dressing(FIM): 6 Upper Body Dressing (QC): 6 Lower Body Dressing(FIM): 6 Lower Body Dressing (QC): 6 On/Off Footwear (QC): 6 Toileting(FIM): 6 Toileting Hygiene (QC): 6 Transfers (B,C,W/C) (FIM): 6 Toilet/Commode Transfer(FIM): 6 Toilet/Commode Transfer (QC): 6 Shower Transfer(FIM): 6 Increase bilat UE strength to 5/5 as needed for standing with FWW for ADLs and transfers Additional Goals: 2-Verbalize Understanding, 3-ImproveStrength/Lizzy 1=Demonstrate adherence to instructed precautions during ADL tasks. 2=Patient will verbalize/demonstrate understanding of assistive devices/ modifications for ADL. 3=Patient will improve strength/tolerance for activity to enable patient to perform ADL's. OT Education/Plan Problem List/Assessment Pt would benefit from skilled OT to increase his independence in basic self care so that he can return safely to his apartment, to drive and to go back to work after amputation R LE with resultant weakness, decreased functional mobility, decreased self care, decreased activity tolerance Discharge Recommendations Plan/Recommendations: Continue POC Treatment Plan/Plan of Care Patient would benefit from OT for education, treatment and training to promote independence in ADL's, mobility, safety and/or upper extremity function for ADL' s. Plan of Care: ADL Retraining, Functional Mobility, Group Exercise/Act as Ind ( exercise, education, activity tolerance, functional actiities, socialization), UE Funct Exercise/Act, UE Neuromus Re-Ed/Coord, W/C Management Training Treatment Duration: May 05, 2016 Visits Per Week: 10-11 Minutes/Day (M-F): 75-90 Minutes/Day (Sat/Barrios): PRN Agreement: Yes Rehab Potential: Good Time/GCodes Start Time: 09:40 Stop Time: 11:00 Total Time Billed (hr/min): 80 Billed Treatment Time visit, 80 minutes ADL ONE VILLEGAS OT Apr 15, 2016 13:15
--- NOTE | 2016-04-15 14:57 | Therapy Group Daily Note ---
Therapy Daily Group Note Patient Education Topic Home Safety Exercises Fine Motor, UE Exercise Other/Notes Pt required encouragement to come to OT/PT lunch group. Pt actively participated in group. Group consisted of introductions (name, place living, worst thing to happen to your house), socialization, discussions about home safety during power outages and winter storms. Pt came up with ideas for what to do if this happened to him. Pt demonstrated ability to set self up for eating and feed self with regular utensils. After group, pt maneuvered w/c back to room and laid down and sat in w/c with call light/phone in reach. All needs met in room. Start Time: 12:00 Stop Time: 13:00 Total Billed Treatment Time: 60 Total Billed Treatment 1-GRP HERMINIA JANE Apr 15, 2016 14:57
[2016-04-15] MEDS: FERROUS SULF 325 MG (IRON) TAB PO SCH (16:48)
[2016-04-15 18:34] VITALS: BP 112/67
[2016-04-15] MEDS: CALCIUM CARBONATE 600 MG (CALCARB) TAB PO SCH (21:11)
[2016-04-15] MEDS: ATORVASTATIN 40 MG (LIPITOR) TABLET PO SCH (21:11)
[2016-04-15] MEDS: clonazePAM 1 MG (KlonoPIN) TAB PO SCH (21:12)
[2016-04-16] MEDS: oxyCODONE/APAP 10/325MG (PERCOCET 10) TABLET PO PRN ×3 (01:46→20:25)
[2016-04-16] MEDS: LEVOTHYROXINE 100 MCG (LEVOTHROID) TAB PO SCH (05:18)
[2016-04-16 06:00] VITALS: BP 127/71
[2016-04-16] MEDS: buPROPion SR 100 MG (WELLBUTRIN SR) TAB PO SCH ×2 (06:22→16:16)
[2016-04-16] MEDS: MULTIVIT W/MINERALS TAB (THERAGRAN M) PO SCH (06:22)
[2016-04-16] MEDS: busPIRone 10 MG (BUSPAR) TAB PO SCH ×3 (08:44→22:15)
[2016-04-16] MEDS: DOCUSATE SODIUM 100 MG (COLACE) CAP PO SCH ×2 (08:44→22:01)
[2016-04-16] MEDS: GABAPENTIN 600 MG (NEURONTIN) TAB PO SCH ×3 (08:44→22:00)
[2016-04-16] MEDS: SERTRALINE 100 MG (ZOLOFT) TAB PO SCH (08:44)
[2016-04-16] MEDS: OMEGA 3 (FISH OIL) 1000 MG CAP PO SCH ×4 (08:44→22:01)
[2016-04-16] MEDS: ASPIRIN E.C. 325 MG (ECOTRIN) TABLET PO SCH (08:44)
[2016-04-16] MEDS: PREGABALIN 75 MG (LYRICA) CAP PO SCH ×2 (08:44→22:00)
[2016-04-16] MEDS: clonazePAM 0.5 MG (KlonoPIN) TAB PO SCH (08:44)
--- NOTE | 2016-04-16 10:48 | Progress Note-Standard ---
Standard Progress Note Progress Notes/Assess & Plan Progress/Assessment & Plan Attitude good, had BK amputation secondary to multiple fractures and collapse of ankle and calcaneous. Lengthy history of Type 1 DM. SKYLAR GELLER MD Apr 16, 2016 10:48 am
--- NOTE | 2016-04-16 10:57 | Physical Therapy Daily Note ---
PT Daily Note-Current Subjective Pt. still in bed asleep at 1015 AM. This HEAT TREAT SUPERVISOR gently waking him, pt. agreeable to Rx. Pain Numeric Pain Scale: 0-No Pain Mental Status Patient Orientation: Normal For Age Transfers Functional [place] Measure 0=Not Assessed/NA 4=Minimal Assistance 1=Total Assistance 5=Supervision or Setup 2=Maximal Assistance 6=Modified [place] 3=Moderate Assistance 7=Complete IndependenceIRFPAI Quality Coding Scale 6 Independent with activity with or without an assistive device 5 Patient requires set up or clean up by helper. Patient completes activity by themselves 4 Supervision or touching assist (CGA). [place] provide cues , steadying assist 3 The helper provides less than half the effort to complete the activity 2 The helper provides more than half the effort to complete the activity 1 Dependent. The helper does all the effort to complete an activity 7 Patient refused to complete or attempt activity 9 The patient did not perform the activity before the current illness or injury 88 Not attempted due to Medical conditions or safety concerns Transfers (B, C, W/C) (FIM): 5 Scootin Rollin Supine to/from Sit: 6 Sit to/from Stand: 5 Bed to/from Chair: 5 Gait Training Does the Patient Walk?: Yes Gait (FIM): 1 Distance (FIM): 1=up to 49 ft (15x2) Gait Level of Assist: 4 Gait Persons Needed: 1 Gait Assistive Device: Parallel Bars Wheelchair Training Does the Pt Use a Wheelchair?: Yes Wheelchair (FIM): 5 Wheelchair Distance: 3=150 ft Wheelchair Level of Assist: 5 (cues for approach of wc for TRF) Exercises Supine Ex: Bridging, Ankle pumps, Quad Set, Rolling, Glut sets, Heel Slides, Short Arc Quads, Scooting, Straight leg raise, Hip abd/add Supine Reps: 15 pt. also performed sidelying and prone therex for amputee etc RLE Treatments pt. in bathroom for face and handwashing at sink indep in w/c Assessment Current Status: Good Progress PT Short Term Goals Short Term Goals Time Frame: Apr 21, 2016 Transfers (B,C,W/C) (FIM): 5 Gait (FIM): 2 Distance (FIM): 0=973-13 ft Gait Assistive Device: FWW Wheelchair Distance: 30o ft x 2 and 150 ft. PT Emergency Department Physician Goals Nursing Home Goals PT Emergency Department Physician Goals Time Frame: May 05, 2016 Transfers (B,C,W/C) (FIM): 6 Sit to Lying (QC): 6 Lying-Sitting on Side/Bed(QC): 6 Sit to Stand (QC): 6 Rollin Roll Left to Right (QC): 6 Chair/Efu-uy-Nqzng Xfer(QC): 6 Car Transfer (QC): 6 Does the Patient Walk: Yes Gait (FIM): 5 (household distance) Gait distance (FIM): 4=694-72 ft Distance: 50 ft Walk 10 feet (QC): 6 Walk 10ft-Uneven Surface(QC): 6 Walk 50ft with 2 Turns (QC): 6 Walk 150 ft (QC): 88 Gait Level of Assist: 6 Gait Assistive Device: FWW Does the Pt use WC or Scooter?: Yes Wheelchair (FIM): 6 Wheelchair distance (FIM): 3=150 ft Wheelchair Level of Assist: 6 Wheel 50 feet with 2 turns (QC: 6 Stairs (FIM): 2 # of Steps: 4 1 Step (curb) (QC): 5 4 Steps (QC): 5 12 Steps (QC): 88 Stairs Level Of Assist: 4 (cga) Picking up an Object (QC): 88 (unsafe with BKA) PT Plan Treatment/Plan Treatment Plan: Continue Plan of Care Treatment Plan: Bed Mobility, Education, Functional Activity Lizzy, Functional Strength, Group Therapy, Gait, Safety, Therapeutic Exercise, Transfers Treatment Duration: May 05, 2016 Visits Per Week: 10-15 Minutes/Day (M-F): 60-90 Minutes/Day (Sat/Barrios): prn Safety Risks/Education Patient Education: Gait Training, Transfer Techniques, Issued Written HEP, Correct Positioning, W/C Management, Disease Process Teaching Recipient: Patient Teaching Methods: Demonstration, Discussion Response to Teaching: Verbalize Understanding, Return Demonstration, Reinforcement Needed Time/GCodes Time In: 1015 Time Out: 1035 Total Billed Treatment Time: 20 Total Billed Treatment 1,EX20m G Codes Necessary: WINSTON Givens HEAT TREAT SUPERVISOR Apr 16, 2016 10:56
[2016-04-16] MEDS: ENOXAPARIN 40 MG/0.4 ML (LOVENOX) SYR SC SCH (11:38)
[2016-04-16] MEDS: FUROSEMIDE 40 MG (LASIX) TAB PO SCH (14:03)
[2016-04-16] MEDS: FERROUS SULF 325 MG (IRON) TAB PO SCH (16:16)
[2016-04-16 17:27] VITALS: BP 121/74
[2016-04-16 21:57] VITALS: BP 119/69
[2016-04-16] MEDS: ATORVASTATIN 40 MG (LIPITOR) TABLET PO SCH (22:00)
[2016-04-16] MEDS: CALCIUM CARBONATE 600 MG (CALCARB) TAB PO SCH (22:00)
[2016-04-16] MEDS: clonazePAM 1 MG (KlonoPIN) TAB PO SCH (22:06)
[2016-04-17] MEDS: oxyCODONE/APAP 10/325MG (PERCOCET 10) TABLET PO PRN ×5 (01:47→20:32)
[2016-04-17 05:28] VITALS: BP 150/80
[2016-04-17] MEDS: MULTIVIT W/MINERALS TAB (THERAGRAN M) PO SCH (06:46)
[2016-04-17] MEDS: buPROPion SR 100 MG (WELLBUTRIN SR) TAB PO SCH ×2 (06:47→17:01)
[2016-04-17] MEDS: LEVOTHYROXINE 100 MCG (LEVOTHROID) TAB PO SCH (06:48)
[2016-04-17] MEDS: GABAPENTIN 600 MG (NEURONTIN) TAB PO SCH ×3 (08:53→20:32)
[2016-04-17] MEDS: busPIRone 10 MG (BUSPAR) TAB PO SCH ×3 (08:53→20:35)
[2016-04-17] MEDS: DOCUSATE SODIUM 100 MG (COLACE) CAP PO SCH ×2 (08:53→20:33)
[2016-04-17] MEDS: ASPIRIN E.C. 325 MG (ECOTRIN) TABLET PO SCH (08:54)
[2016-04-17] MEDS: clonazePAM 0.5 MG (KlonoPIN) TAB PO SCH (08:54)
[2016-04-17] MEDS: PREGABALIN 75 MG (LYRICA) CAP PO SCH ×2 (08:54→20:32)
[2016-04-17] MEDS: OMEGA 3 (FISH OIL) 1000 MG CAP PO SCH ×4 (08:54→20:33)
[2016-04-17] MEDS: SERTRALINE 100 MG (ZOLOFT) TAB PO SCH (08:54)
[2016-04-17] MEDS: ENOXAPARIN 40 MG/0.4 ML (LOVENOX) SYR SC SCH (11:06)
[2016-04-17] MEDS: FENTANYL PATCH REMOVAL TP SCH (17:01)
[2016-04-17] MEDS: FERROUS SULF 325 MG (IRON) TAB PO SCH (17:01)
[2016-04-17] MEDS: fentaNYL PATCH 75 MCG (DURAGESIC) TD SCH (17:01)
[2016-04-17 17:51] VITALS: BP 129/64
[2016-04-17] MEDS: ATORVASTATIN 40 MG (LIPITOR) TABLET PO SCH (20:33)
[2016-04-17] MEDS: CALCIUM CARBONATE 600 MG (CALCARB) TAB PO SCH (20:33)
[2016-04-17] MEDS: clonazePAM 1 MG (KlonoPIN) TAB PO SCH (20:33)
[2016-04-17] MEDS: FLEET ENEMA ADULT 1 EA BTL PR PRN (20:40)
[2016-04-18] MEDS: oxyCODONE/APAP 10/325MG (PERCOCET 10) TABLET PO PRN ×6 (00:37→20:45)
[2016-04-18 04:26] VITALS: BP 146/73
[2016-04-18] MEDS: LEVOTHYROXINE 100 MCG (LEVOTHROID) TAB PO SCH (06:24)
[2016-04-18] MEDS: buPROPion SR 100 MG (WELLBUTRIN SR) TAB PO SCH ×2 (06:24→16:36)
[2016-04-18] MEDS: MULTIVIT W/MINERALS TAB (THERAGRAN M) PO SCH (06:24)
[2016-04-18] MEDS: ASPIRIN E.C. 325 MG (ECOTRIN) TABLET PO SCH (08:50)
[2016-04-18] MEDS: SERTRALINE 100 MG (ZOLOFT) TAB PO SCH (08:51)
[2016-04-18] MEDS: OMEGA 3 (FISH OIL) 1000 MG CAP PO SCH ×4 (08:51→20:47)
[2016-04-18] MEDS: GABAPENTIN 600 MG (NEURONTIN) TAB PO SCH (08:51)
[2016-04-18] MEDS: PREGABALIN 75 MG (LYRICA) CAP PO SCH (08:51)
[2016-04-18] MEDS: busPIRone 10 MG (BUSPAR) TAB PO SCH ×3 (08:51→20:49)
[2016-04-18] MEDS: DOCUSATE SODIUM 100 MG (COLACE) CAP PO SCH ×2 (08:52→20:47)
[2016-04-18] MEDS: clonazePAM 0.5 MG (KlonoPIN) TAB PO SCH (08:53)
--- NOTE | 2016-04-18 09:21 | Physical Therapy Daily Note ---
PT Daily Note-Current Subjective Pt laying supine in bed upon arrival. Pt reports having a rough few nights of sleep due to peripheral neuropathy in toes of L foot. Pt rated pain at 1/10 now but can get to 4-5/10. Pt agrees to PT. Pain Numeric Pain Scale: 1 Location: Left Location Body Site: Foot Pain Description: Ache Mental Status Patient Orientation: Person, Place, Time, Situation Transfers Functional [place] Measure 0=Not Assessed/NA 4=Minimal Assistance 1=Total Assistance 5=Supervision or Setup 2=Maximal Assistance 6=Modified [place] 3=Moderate Assistance 7=Complete IndependenceIRFPAI Quality Coding Scale 6 Independent with activity with or without an assistive device 5 Patient requires set up or clean up by helper. Patient completes activity by themselves 4 Supervision or touching assist (CGA). [place] provide cues , steadying assist 3 The helper provides less than half the effort to complete the activity 2 The helper provides more than half the effort to complete the activity 1 Dependent. The helper does all the effort to complete an activity 7 Patient refused to complete or attempt activity 9 The patient did not perform the activity before the current illness or injury 88 Not attempted due to Medical conditions or safety concerns Scootin Rollin Supine to/from Sit: 5 Sit to/from Stand: 4 Bed to/from Chair: 4 Transfer from sit to stand and bed to chair were 4 due to needing VC on sequencing and reminding pt to go from strong side. Weight Bearing Weight Bearing Restriction: Full Weight Bearing Location Restriction: LE Bilateral Wheelchair Training Does the Pt Use a Wheelchair?: Yes Wheelchair Distance: 5=353-07 ft Distance: 65' Wheelchair Level of Assist: 6 Type of Wheelchair: Manual Treatments Pt was able to put pants on in bed Mod I. Pt then transferred from supine to sit at SBA then EOB to standing using FWW at Min A for VC for sequencing. Pt transferred to W/C and propelled to Therapy Gym. Upon propelling to mat for EX , pt reported Blood Sugar felt low. PT notified nursing due to pt not eating breakfast before tx. Nursing took Blood Sugar and it was 44. Nursing got pt a couple of Cokes to help bring sugar up. PT didn;t EX pt due to Blood Sugar but pt & PT did discuss pt education items such as ways to keep blood sugar at better level, what pt has done at home to maintain Blood Sugar, and why we need to help maintain Blood Sugar. After a short while, Blood Sugar was going up to 51. Pt also had breakfast ordered so it would be in room at end of tx. Pt was left with Blood Sugar increasing and eating breakfast, all other needs were met. Assessment Current Status: Poor Progress Pt's progress was poor due to lack of ability to participate in EX or gait due to low Blood Sugar. Pt was able to verbally discuss pt education on Diabetes and why we need to better control Blood Sugar. Pt more verbal as Blood Sugar increased. PT Short Term Goals Short Term Goals Time Frame: Apr 21, 2016 Transfers (B,C,W/C) (FIM): 5 Gait (FIM): 2 Distance (FIM): 4=229-29 ft Gait Assistive Device: FWW Wheelchair Distance: 30o ft x 2 and 150 ft. PT Usp Goals Usp Goals PT Security System Technician Goals Time Frame: May 05, 2016 Transfers (B,C,W/C) (FIM): 6 Sit to Lying (QC): 6 Lying-Sitting on Side/Bed(QC): 6 Sit to Stand (QC): 6 Rollin Roll Left to Right (QC): 6 Chair/Vsq-gs-Meqyk Xfer(QC): 6 Car Transfer (QC): 6 Does the Patient Walk: Yes Gait (FIM): 5 (household distance) Gait distance (FIM): 1=602-02 ft Distance: 50 ft Walk 10 feet (QC): 6 Walk 10ft-Uneven Surface(QC): 6 Walk 50ft with 2 Turns (QC): 6 Walk 150 ft (QC): 88 Gait Level of Assist: 6 Gait Assistive Device: FWW Does the Pt use WC or Scooter?: Yes Wheelchair (FIM): 6 Wheelchair distance (FIM): 3=150 ft Wheelchair Level of Assist: 6 Wheel 50 feet with 2 turns (QC: 6 Stairs (FIM): 2 # of Steps: 4 1 Step (curb) (QC): 5 4 Steps (QC): 5 12 Steps (QC): 88 Stairs Level Of Assist: 4 (cga) Picking up an Object (QC): 88 (unsafe with BKA) PT Plan Problem List Problem List: Activity Tolerance, Functional Strength, Safety, Balance, Gait, Transfer Treatment/Plan Treatment Plan: Continue Plan of Care Treatment Plan: Bed Mobility, Education, Functional Activity Lizzy, Functional Strength, Group Therapy, Gait, Safety, Therapeutic Exercise, Transfers Treatment Duration: May 05, 2016 Visits Per Week: 10-15 Minutes/Day (M-F): 60-90 Minutes/Day (Sat/Barrios): prn Safety Risks/Education Patient Education: Reviewed Precautions, Correct Positioning, Disease Process, Safety Issues Teaching Recipient: Patient Teaching Methods: Discussion Response to Teaching: Verbalize Understanding Time/GCodes Time In: 815 Time Out: 915 Total Billed Treatment Time: 60 Total Billed Treatment visit, FA X4 (60m) DAO PINON PTA Apr 18, 2016 09:21
[2016-04-18] MEDS ORDERED: PREGABALIN 50 MG (LYRICA) CAP PO NR (10:49)
[2016-04-18] MEDS: ENOXAPARIN 40 MG/0.4 ML (LOVENOX) SYR SC SCH (10:57)
--- NOTE | 2016-04-18 15:02 | Occupational Ther Daily Note ---
OT Current Status-Daily Note Subjective Pt sitting in w/c in gym. No pain mentioned. Agreeable to OT. Appearance Alert, Cooperative Mental Status/Objective Functional [place] Measure 0=Not Assessed/NA 4=Minimal Assistance 1=Total Assistance 5=Supervision or Setup 2=Maximal Assistance 6=Modified [place] 3=Moderate Assistance 7=Complete [place] ADL-Treatment Functional [place] Measure 0=Not Assessed/NA 4=Minimal Assistance 1=Total Assistance 5=Supervision or Setup 2=Maximal Assistance 6=Modified [place] 3=Moderate Assistance 7=Complete IndependenceIRFPAI Quality Coding Scale 6 Independent with activity with or without an assistive device 5 Patient requires set up or clean up by helper. Patient completes activity by themselves 4 Supervision or touching assist (CGA). [place] provide cues , steadying assist 3 The helper provides less than half the effort to complete the activity 2 The helper provides more than half the effort to complete the activity 1 Dependent. The helper does all the effort to complete an activity 7 Patient refused to complete or attempt activity 9 The patient did not perform the activity before the current illness or injury 88 Not attempted due to Medical conditions or safety concerns Other Treatment Pt used 2 lb hand held weight to increase wrist, forearm strength, 10 reps each exercise. Yellow (light) resistance for shoulder, biceps, triceps strength 10 reps. Strengthening to help with transfers and standing during ADLs. Pt propelled self back to room. Pt left sitting in w/c, call light in hand. All needs met. Education OT Patient Education: Exercise program, Progress toward Goal/Update tx plan Teaching Recipient: Patient Teaching Methods: Demonstration Response to Teaching: Verbalize Understanding, Return Demonstration OT Short Term Goals Short Term Goals Time Frame: Apr 21, 2016 Toileting(FIM): 5 Transfers (B,C,W/C) (FIM): 5 Toilet/Commode Transfer(FIM): 5 Shower Transfer(FIM): 5 Additional Short Term Goals: 2-Verbalize Understanding, 3-ImproveStrength/Lizzy 1=Demonstrate adherence to instructed precautions during ADL tasks. 2=Patient will verbalize/demonstrate understanding of assistive devices/ modifications for ADL. 3=Patient will improve strength/tolerance for activity to enable patient to perform ADL's. OT Crew Car Driver Goals Crew Car Driver Goals Time Frame: May 05, 2016 Eating (FIM): 7 Eating (QC): 6 Oral Hygiene (QC): 6 Grooming(FIM): 6 (standing level) Bathing(FIM): 6 Shower/Bathe Self (QC): 6 Upper Body Dressing(FIM): 6 Upper Body Dressing (QC): 6 Lower Body Dressing(FIM): 6 Lower Body Dressing (QC): 6 On/Off Footwear (QC): 6 Toileting(FIM): 6 Toileting Hygiene (QC): 6 Transfers (B,C,W/C) (FIM): 6 Toilet/Commode Transfer(FIM): 6 Toilet/Commode Transfer (QC): 6 Shower Transfer(FIM): 6 Increase bilat UE strength to 5/5 as needed for standing with FWW for ADLs and transfers Additional Goals: 2-Verbalize Understanding, 3-ImproveStrength/Lizzy 1=Demonstrate adherence to instructed precautions during ADL tasks. 2=Patient will verbalize/demonstrate understanding of assistive devices/ modifications for ADL. 3=Patient will improve strength/tolerance for activity to enable patient to perform ADL's. OT Education/Plan Problem List/Assessment Pt would benefit from skilled OT to increase his independence in basic self care so that he can return safely to his apartment, to drive and to go back to work after amputation R LE with resultant weakness, decreased functional mobility, decreased self care, decreased activity tolerance Discharge Recommendations Plan/Recommendations: Continue POC Treatment Plan/Plan of Care Patient would benefit from OT for education, treatment and training to promote independence in ADL's, mobility, safety and/or upper extremity function for ADL' s. Plan of Care: ADL Retraining, Functional Mobility, Group Exercise/Act as Ind ( exercise, education, activity tolerance, functional actiities, socialization), UE Funct Exercise/Act, UE Neuromus Re-Ed/Coord, W/C Management Training Treatment Duration: May 05, 2016 Visits Per Week: 10-11 Minutes/Day (M-F): 75-90 Minutes/Day (Sat/Barrios): PRN Agreement: Yes Rehab Potential: Good Time/GCodes Start Time: 13:30 Stop Time: 14:00 Total Time Billed (hr/min): 30 Billed Treatment Time visit, EX 30 min NOE VILLEGAS OT Apr 18, 2016 15:02
--- NOTE | 2016-04-18 15:09 | Physical Therapy Daily Note ---
PT Daily Note-Current Subjective Pt was sitting in W/C upon arrival. Pt reports feeling much better than this morning. Pt agrees to PT. Mental Status Patient Orientation: Person, Place, Time, Situation Transfers Functional [place] Measure 0=Not Assessed/NA 4=Minimal Assistance 1=Total Assistance 5=Supervision or Setup 2=Maximal Assistance 6=Modified [place] 3=Moderate Assistance 7=Complete IndependenceIRFPAI Quality Coding Scale 6 Independent with activity with or without an assistive device 5 Patient requires set up or clean up by helper. Patient completes activity by themselves 4 Supervision or touching assist (CGA). [place] provide cues , steadying assist 3 The helper provides less than half the effort to complete the activity 2 The helper provides more than half the effort to complete the activity 1 Dependent. The helper does all the effort to complete an activity 7 Patient refused to complete or attempt activity 9 The patient did not perform the activity before the current illness or injury 88 Not attempted due to Medical conditions or safety concerns Scootin Rollin Roll Left to Right (QC): 6 Supine to/from Sit: 6 Sit to/from Stand: 5 Sit to Lying (QC): 6 Sit to Stand (QC): 5 Chair/Yzx-hd-Evwrx Xfer(QC): 5 Bed to/from Chair: 5 Weight Bearing Weight Bearing Restriction: Full Weight Bearing Location Restriction: L LE Gait Training Does the Patient Walk?: Yes Distance (FIM): 8=253-75 ft Distance: 60' Gait Level of Assist: 5 Gait Persons Needed: 1 Gait Assistive Device: Parallel Bars Pt ambulates in //bars at [facility]. Wheelchair Training Does the Pt Use a Wheelchair?: Yes Wheelchair (FIM): 3 Wheelchair Distance: 3=954-35 ft Distance: 60' Wheelchair Level of Assist: 6 Type of Wheelchair: Manual Exercises Supine Ex: Ankle pumps, Quad Set, Rolling, Heel Slides, Scooting, Straight leg raise, Hip abd/add Supine Reps: 15 Treatments Pt propels W/C to Therapy Gym then transfers to mat at [facility]. Pt completes supine Ex on mat before rolling to prone for Hip Extension Ex then to side lying for [place] on both sides. Pt took a couple of rest during Ex to rest legs. Pt then transferred back to W/C and propelled to //bars. Pt ambulated in //bars X6. Pt then transferred back to W/C to await OT tx. Pt was left in Therapy Gym with OT and all needs met at end of tx. Assessment Current Status: Good Progress Pt was able to Ex and ambulate much better than this morning due to feeling better and Blood Sugar level was better. PT Short Term Goals Short Term Goals Time Frame: Apr 21, 2016 Transfers (B,C,W/C) (FIM): 5 Gait (FIM): 2 Distance (FIM): 6=296-91 ft Gait Assistive Device: FWW Wheelchair Distance: 65' PT Half-Way Goals Half-Way Goals PT Dry Roaster Goals Time Frame: May 05, 2016 Transfers (B,C,W/C) (FIM): 6 Sit to Lying (QC): 6 Lying-Sitting on Side/Bed(QC): 6 Sit to Stand (QC): 6 Rollin Roll Left to Right (QC): 6 Chair/Pjj-za-Dqzuh Xfer(QC): 6 Car Transfer (QC): 6 Does the Patient Walk: Yes Gait (FIM): 5 (household distance) Gait distance (FIM): 7=199-46 ft Distance: 50 ft Walk 10 feet (QC): 6 Walk 10ft-Uneven Surface(QC): 6 Walk 50ft with 2 Turns (QC): 6 Walk 150 ft (QC): 88 Gait Level of Assist: 6 Gait Assistive Device: FWW Does the Pt use WC or Scooter?: Yes Wheelchair (FIM): 6 Wheelchair distance (FIM): 3=150 ft Wheelchair Level of Assist: 6 Wheel 50 feet with 2 turns (QC: 6 Stairs (FIM): 2 # of Steps: 4 1 Step (curb) (QC): 5 4 Steps (QC): 5 12 Steps (QC): 88 Stairs Level Of Assist: 4 (cga) Picking up an Object (QC): 88 (unsafe with BKA) PT Plan Problem List Problem List: Activity Tolerance, Functional Strength, Balance, Gait Treatment/Plan Treatment Plan: Continue Plan of Care Treatment Plan: Bed Mobility, Education, Functional Activity Lizzy, Functional Strength, Group Therapy, Gait, Safety, Therapeutic Exercise, Transfers Treatment Duration: May 05, 2016 Visits Per Week: 10-15 Minutes/Day (M-F): 60-90 Minutes/Day (Sat/Barrios): prn Safety Risks/Education Patient Education: Gait Training, Transfer Techniques, Correct Positioning, Disease Process, Safety Issues Teaching Recipient: Patient Teaching Methods: Discussion Response to Teaching: Verbalize Understanding Time/GCodes Time In: 1245 Time Out: 1330 Total Billed Treatment Time: 45 Total Billed Treatment visit, EX X2 (30m) & GT (15m) DAO PINON FOREIGN STUDENT ADVISER TEACHER Apr 18, 2016 15:09
--- NOTE | 2016-04-18 15:14 | Occupational Ther Daily Note ---
OT Current Status-Daily Note Subjective Pt sitting in w/c. Pt reported he had low blood sugar but feeling better since nurse attended to him. Agreeable to OT. Appearance Alert, Cooperative Mental Status/Objective Functional [place] Measure 0=Not Assessed/NA 4=Minimal Assistance 1=Total Assistance 5=Supervision or Setup 2=Maximal Assistance 6=Modified [place] 3=Moderate Assistance 7=Complete [place] ADL-Treatment Pt declined shower today due to taking a shower Monday. Pt propelled self to bathroom and brushed teeth with electrical toothbrush, washed face and hands while sitting in w/c in front of sink, mod I. Pt propelled back to room to apply compression sock, set up. Pt education modified technique for donning TE hose. Pt propelled to gym without assistance. Pt used arm bike 12 min, 25 reyes with no recovery breaks and used nuts & bolts activity for fine motor skills with 1# wrist weights on each wrist to increase shoulder strength for transfers. Pt propelled self back to room, call light in reach. All needs met. Functional [place] Measure 0=Not Assessed/NA 4=Minimal Assistance 1=Total Assistance 5=Supervision or Setup 2=Maximal Assistance 6=Modified [place] 3=Moderate Assistance 7=Complete IndependenceIRFPAI Quality Coding Scale 6 Independent with activity with or without an assistive device 5 Patient requires set up or clean up by helper. Patient completes activity by themselves 4 Supervision or touching assist (CGA). [place] provide cues , steadying assist 3 The helper provides less than half the effort to complete the activity 2 The helper provides more than half the effort to complete the activity 1 Dependent. The helper does all the effort to complete an activity 7 Patient refused to complete or attempt activity 9 The patient did not perform the activity before the current illness or injury 88 Not attempted due to Medical conditions or safety concerns Grooming (FIM): 5 Oral Hygiene (QC): 5 Education OT Patient Education: Exercise program, Progress toward Goal/Update tx plan, Other (introduced new technique to put compression sock on) Teaching Recipient: Patient Teaching Methods: Demonstration, Discussion Response to Teaching: Verbalize Understanding, Return Demonstration OT Short Term Goals Short Term Goals Time Frame: Apr 21, 2016 Toileting(FIM): 5 Transfers (B,C,W/C) (FIM): 5 Toilet/Commode Transfer(FIM): 5 Shower Transfer(FIM): 5 Additional Short Term Goals: 2-Verbalize Understanding, 3-ImproveStrength/Lizzy 1=Demonstrate adherence to instructed precautions during ADL tasks. 2=Patient will verbalize/demonstrate understanding of assistive devices/ modifications for ADL. 3=Patient will improve strength/tolerance for activity to enable patient to perform ADL's. OT Detention Goals Revolving Inventory Clerk Goals Time Frame: May 05, 2016 Eating (FIM): 7 Eating (QC): 6 Oral Hygiene (QC): 6 Grooming(FIM): 6 (standing level) Bathing(FIM): 6 Shower/Bathe Self (QC): 6 Upper Body Dressing(FIM): 6 Upper Body Dressing (QC): 6 Lower Body Dressing(FIM): 6 Lower Body Dressing (QC): 6 On/Off Footwear (QC): 6 Toileting(FIM): 6 Toileting Hygiene (QC): 6 Transfers (B,C,W/C) (FIM): 6 Toilet/Commode Transfer(FIM): 6 Toilet/Commode Transfer (QC): 6 Shower Transfer(FIM): 6 Increase bilat UE strength to 5/5 as needed for standing with FWW for ADLs and transfers Additional Goals: 2-Verbalize Understanding, 3-ImproveStrength/Lizzy 1=Demonstrate adherence to instructed precautions during ADL tasks. 2=Patient will verbalize/demonstrate understanding of assistive devices/ modifications for ADL. 3=Patient will improve strength/tolerance for activity to enable patient to perform ADL's. OT Education/Plan Problem List/Assessment Pt would benefit from skilled OT to increase his independence in basic self care so that he can return safely to his apartment, to drive and to go back to work after amputation R LE with resultant weakness, decreased functional mobility, decreased self care, decreased activity tolerance Discharge Recommendations Plan/Recommendations: Continue POC Treatment Plan/Plan of Care Patient would benefit from OT for education, treatment and training to promote independence in ADL's, mobility, safety and/or upper extremity function for ADL' s. Plan of Care: ADL Retraining, Functional Mobility, Group Exercise/Act as Ind ( exercise, education, activity tolerance, functional actiities, socialization), UE Funct Exercise/Act, UE Neuromus Re-Ed/Coord, W/C Management Training Treatment Duration: May 05, 2016 Visits Per Week: 10-11 Minutes/Day (M-F): 75-90 Minutes/Day (Sat/Barrios): PRN Agreement: Yes Rehab Potential: Good Time/GCodes Start Time: 09:30 Stop Time: 10:30 Total Time Billed (hr/min): 60 Billed Treatment Time visit, ADL 15 min, EX 45 min NOE VILLEGAS OT Apr 18, 2016 15:14
[2016-04-18] MEDS: FUROSEMIDE 40 MG (LASIX) TAB PO SCH (15:24)
[2016-04-18] MEDS: FERROUS SULF 325 MG (IRON) TAB PO SCH (16:36)
[2016-04-18 18:23] VITALS: BP 109/56
[2016-04-18] MEDS: ATORVASTATIN 40 MG (LIPITOR) TABLET PO SCH (20:45)
--- NOTE | 2016-04-18 20:45 | PM & R (SOAP) Progress Note ---
Subjective Subjective/Events-last exam Patient was seen in his room Patient SBA for transfers Gabapentin and Lyrica doses adjusted Patient managing his own Insulin pump with corrections low this AM High last Monday. Objective Exam Last Set of Vital Signs Vital Signs Date Time Temp Pulse Resp B/P Pulse Ox O2 Delivery O2 Flow Rate FiO2 04/18/16 18:23 96.6 55 16 109/56 100 Room Air Capillary Refill : I&O Intake and Output 04/18/16 00:00 Intake Total 1390 ml Output Total 1170 ml Balance 220 ml Intake Oral 1390 ml Output Urine Total 1170 ml General: Alert, Oriented X3, Cooperative, No Acute Distress HEENT: Atraumatic, PERRLA, EOMI, Mucous Memb Moist/[place]: Supple, No JVD Lungs: Clear to Auscultation Heart: Regular Rate Abdomen: Normal Bowel Sounds, Soft, No Tenderness Extremities: Other (RT BKA wrapped and trace edema left leg good strength throughout) Results Lab Laboratory Tests 04/16/16 05:33: Glucometer 239H 04/16/16 11:08: Glucometer 129H 04/16/16 16:15: Glucometer 189H 04/16/16 22:20: Glucometer 358H 04/17/16 05:48: Glucometer 46*L 04/17/16 06:10: Glucometer 99 04/17/16 11:04: Glucometer 201H 04/17/16 17:00: Glucometer 102 04/17/16 21:25: Glucometer 88 04/18/16 04:19: Glucometer 111H 04/18/16 08:42: Glucometer 44*L 04/18/16 08:55: Glucometer 51*L 04/18/16 09:28: Glucometer 99 04/18/16 11:07: Glucometer 154H Assessment/Plan Assessment s/p rt BKA for Charcot foot with instability Type 1 DM has Insulin pump with poor control at this point 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 and Gabapentin and Lyrica with meds adjusted Depression/Anxiety on meds via [facility] Postop anemia on replacement DVT Prophylaxis Start Lovenox SUBCUT Plan Continue PT/OT ST has signed off DR Moreno managing wound care Lovenox Sub cut for dvt Prophylaxis Continue replacement for Anemia Ongoing Pain management Hospitalist consulted=Appreciate Dr Carr consult F/U re better Type 1 DM control Team Conference 04/20/16 RADHA GUPTA MD Apr 18, 2016 20:45
[2016-04-18] MEDS: PREGABALIN 100 MG (LYRICA) CAPSULE PO SCH (20:47)
[2016-04-18] MEDS: CALCIUM CARBONATE 600 MG (CALCARB) TAB PO SCH (20:47)
[2016-04-18] MEDS: PREGABALIN 50 MG (LYRICA) CAP PO SCH (20:47)
[2016-04-18] MEDS: clonazePAM 1 MG (KlonoPIN) TAB PO SCH (20:48)
[2016-04-19] MEDS: MULTIVIT W/MINERALS TAB (THERAGRAN M) PO SCH (05:19)
[2016-04-19] MEDS: LEVOTHYROXINE 100 MCG (LEVOTHROID) TAB PO SCH (05:19)
[2016-04-19] MEDS: buPROPion SR 100 MG (WELLBUTRIN SR) TAB PO SCH ×2 (05:19→16:18)
[2016-04-19] MEDS: oxyCODONE/APAP 10/325MG (PERCOCET 10) TABLET PO PRN ×5 (05:20→22:22)
[2016-04-19 06:00] VITALS: BP 109/46
[2016-04-19] MEDS: DOCUSATE SODIUM 100 MG (COLACE) CAP PO SCH ×2 (07:54→20:56)
[2016-04-19] MEDS: clonazePAM 0.5 MG (KlonoPIN) TAB PO SCH (07:54)
[2016-04-19] MEDS: PREGABALIN 100 MG (LYRICA) CAPSULE PO SCH ×2 (07:54→20:56)
[2016-04-19] MEDS: PREGABALIN 50 MG (LYRICA) CAP PO SCH ×2 (07:54→20:56)
[2016-04-19] MEDS: ASPIRIN E.C. 325 MG (ECOTRIN) TABLET PO SCH (07:54)
[2016-04-19] MEDS: SERTRALINE 100 MG (ZOLOFT) TAB PO SCH (07:55)
[2016-04-19] MEDS: busPIRone 10 MG (BUSPAR) TAB PO SCH ×3 (07:55→20:56)
[2016-04-19] MEDS: OMEGA 3 (FISH OIL) 1000 MG CAP PO SCH ×4 (07:55→20:56)
--- NOTE | 2016-04-19 09:05 | Progress Note-Hospitalist ---
Progress Note HPI/CC on Admission CC: Medical management of type I diabetic status post right below the knee amputation POD # 3 HPI: This is a 61-year-old white male clinic patient of Dr. 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 He has an insulin pump which she is managing under endocrinology orders and he has been placed back on fentanyl patch of which he's been on for multiple years due to severe neuropathy and overall chronic pain. He does receive an enema every 3 days due to colonic dysfunction from diabetes and overall he denies any significant problems and is very impressed with the inpatient rehabilitation facility in facilitating his recovery. 1. Type 1 diabetes mellitus has an insulin pump Medtronic. 2. Coronary artery disease. 3. Diabetic peripheral neuropathy. 4. Chronic neuropathic pain. 5. Hypertension. 6. IN. 7. Peripheral vascular disease. 8. Hypercholesteremia. 9. Anxiety. 10. Depression. 11. DVT. 12. Renal sufficiency. 13. Anemia. Progress Notes/Assess & Plan Date Seen 04/19/16 Admission Dx/Process Assessment: Debility following right below the knee amputation by Dr. Moreno uncomplicated Problem list per Dr Ravi 1. Type 1 diabetes mellitus has an insulin pump Medtronic. 2. Coronary artery disease. 3. Diabetic peripheral neuropathy. 4. Chronic neuropathic pain. 5. Hypertension. 6. IN. 7. Peripheral vascular disease. 8. Hypercholesteremia. 9. Anxiety. 10. Depression. 11. DVT. 12. Renal sufficiency. 13. Anemia. 14. chronic constipation requiring enema every 3 days Diagonsis/Assessment & Plan Pt doing well Lyrica increased and gabapentin decreased Wants Dr Moreno to see the wound and he will be called by RN Checked labs and meds AFVSS, [place], O x 3 RRR, CTAB no rales noted No edema Assessment: Debility following right below the knee amputation by Dr. Moreno uncomplicated Problem list per Dr Ravi 1. Type 1 diabetes mellitus has an insulin pump Medtronic. 2. Coronary artery disease. 3. Diabetic peripheral neuropathy. 4. Chronic neuropathic pain. 5. Hypertension. 6. IN. 7. Peripheral vascular disease. 8. Hypercholesteremia. 9. Anxiety. 10. Depression. 11. DVT. 12. Renal sufficiency. 13. Anemia. 14. chronic constipation requiring enema every 3 days Plan: Continue fentanyl patch Insulin pump Lovenox for DVT prophylaxis until more mobile Monitor closely HOWARD HILTON DO Apr 19, 2016 09:05
[2016-04-19] MEDS: ENOXAPARIN 40 MG/0.4 ML (LOVENOX) SYR SC SCH (10:14)
--- NOTE | 2016-04-19 12:02 | Physical Therapy Daily Note ---
PT Daily Note-Current Subjective Patient just complete with OT and agreeable to participate with PT. Pain Numeric Pain Scale: 5-Moderate Pain Location: Left Location Body Site: Calf Pain Description: Ache Comment: left stump Mental Status Patient Orientation: Normal For Age Transfers Functional [place] Measure 0=Not Assessed/NA 4=Minimal Assistance 1=Total Assistance 5=Supervision or Setup 2=Maximal Assistance 6=Modified [place] 3=Moderate Assistance 7=Complete IndependenceIRFPAI Quality Coding Scale 6 Independent with activity with or without an assistive device 5 Patient requires set up or clean up by helper. Patient completes activity by themselves 4 Supervision or touching assist (CGA). [place] provide cues , steadying assist 3 The helper provides less than half the effort to complete the activity 2 The helper provides more than half the effort to complete the activity 1 Dependent. The helper does all the effort to complete an activity 7 Patient refused to complete or attempt activity 9 The patient did not perform the activity before the current illness or injury 88 Not attempted due to Medical conditions or safety concerns Transfers (B, C, W/C) (FIM): 5 Scootin Rollin Roll Left to Right (QC): 6 Supine to/from Sit: 6 Sit to/from Stand: 5 Sit to Lying (QC): 6 Sit to Stand (QC): 5 Chair/Bdc-kj-Fvrdk Xfer(QC): 5 Bed to/from Chair: 5 Gait Training Does the Patient Walk?: Yes Gait (FIM): 5 Distance (FIM): 3=150 ft Distance: 75' x 2; 300' x 1 Gait Level of Assist: 5 Gait Persons Needed: 1 Gait Assistive Device: FWW Wheelchair Training Does the Pt Use a Wheelchair?: Yes Wheelchair (FIM): 6 Wheelchair Distance: 3=150 ft Distance: 300' Wheelchair Level of Assist: 6 Type of Wheelchair: Manual Exercises Supine Ex: LE Protocol (prone bilateral hip extension and hamstring curls x 20 reps), Quad Set, Rolling, Knee to chest, Straight leg raise, Hip abd/add Supine Reps: 20 Assessment Patient tolerated treatment well and is progressing with treatment. Patient displays ability to monitor blood sugar during treatment to ensure ability to participate with PT. PT Short Term Goals Short Term Goals Time Frame: Apr 21, 2016 Transfers (B,C,W/C) (FIM): 5 (met 04/19/15) Gait (FIM): 2 (met 04/19/15) Distance (FIM): 4=346-56 ft Gait Assistive Device: FWW Wheelchair Distance: 60' PT Usp Goals Usp Goals PT Usp Goals Time Frame: May 05, 2016 Transfers (B,C,W/C) (FIM): 6 Sit to Lying (QC): 6 Lying-Sitting on Side/Bed(QC): 6 Sit to Stand (QC): 6 Rollin Roll Left to Right (QC): 6 Chair/Gut-ld-Ohrmj Xfer(QC): 6 Car Transfer (QC): 6 Does the Patient Walk: Yes Gait (FIM): 5 (household distance) Gait distance (FIM): 3=523-91 ft Distance: 50 ft Walk 10 feet (QC): 6 Walk 10ft-Uneven Surface(QC): 6 Walk 50ft with 2 Turns (QC): 6 Walk 150 ft (QC): 88 Gait Level of Assist: 6 Gait Assistive Device: FWW Does the Pt use WC or Scooter?: Yes Wheelchair (FIM): 6 Wheelchair distance (FIM): 3=150 ft Wheelchair Level of Assist: 6 Wheel 50 feet with 2 turns (QC: 6 Stairs (FIM): 2 # of Steps: 4 1 Step (curb) (QC): 5 4 Steps (QC): 5 12 Steps (QC): 88 Stairs Level Of Assist: 4 (cga) Picking up an Object (QC): 88 (unsafe with BKA) PT Plan Treatment/Plan Treatment Plan: Continue Plan of Care Treatment Plan: Bed Mobility, Education, Functional Activity Lizzy, Functional Strength, Group Therapy, Gait, Safety, Therapeutic Exercise, Transfers Treatment Duration: May 05, 2016 Visits Per Week: 10-15 Minutes/Day (M-F): 60-90 Minutes/Day (Sat/Barrios): prn Time/GCodes Time In: 1100 Time Out: 1200 Total Billed Treatment Time: 60 Total Billed Treatment 1 visit EX x 2 30 min GT x 2 30 min RINA MARMOLEJO PT Apr 19, 2016 12:02
--- NOTE | 2016-04-19 12:59 | Occupational Ther Daily Note ---
OT Current Status-Daily Note Subjective Pt seen in room, up in bed, agreeable to OT and ADLs. No pain mentioned. Appearance Alert, cooperative Mental Status/Objective Functional [place] Measure 0=Not Assessed/NA 4=Minimal Assistance 1=Total Assistance 5=Supervision or Setup 2=Maximal Assistance 6=Modified [place] 3=Moderate Assistance 7=Complete [place] ADL-Treatment R lower leg wrapped in plastic bag for shower. Pt removed insulin pump himself before shower. Pt walked SBA, FWW to bathroom (about 20 feet) and transferred on to shower bench with CGA, pt educ for hand placement. Pt was able to wash and dry all parts, minimal setup. Turned water off himself. Dried all parts but needed SBA when standing to dry bottom and pull pants up. Shower bench, grab bars, hand held shower. Pt undressed in shower without help. Setup to get pants out but he was able to retrieve shirt himself at w/c level. Help to don mathew hose but he put regular sock and shoe on. SBA when standing to pull pants up. Pt brushed teeth at sink mod I. Washed face and hands during shower. Pt propelled himself to gym per w/c. Did 15 min bilat UE exercise on arm bike set at 20W resistance, with one brief break. Pt education on giving him a theraband exercise program that he can do himself in his room. Pt provided with red theraband (medium resistance) and written instructions for exercises. Plan for pt educ exercises this pm. Care transferred to PT. Functional [place] Measure 0=Not Assessed/NA 4=Minimal Assistance 1=Total Assistance 5=Supervision or Setup 2=Maximal Assistance 6=Modified [place] 3=Moderate Assistance 7=Complete IndependenceIRFPAI Quality Coding Scale 6 Independent with activity with or without an assistive device 5 Patient requires set up or clean up by helper. Patient completes activity by themselves 4 Supervision or touching assist (CGA). [place] provide cues , steadying assist 3 The helper provides less than half the effort to complete the activity 2 The helper provides more than half the effort to complete the activity 1 Dependent. The helper does all the effort to complete an activity 7 Patient refused to complete or attempt activity 9 The patient did not perform the activity before the current illness or injury 88 Not attempted due to Medical conditions or safety concerns Grooming (FIM): 6 (w/c) Bathing (FIM): 5 Upper Body (FIM): 6 Lower Body Dressing (FIM): 5 Shower Transfer(FIM): 4 (CGA) Education OT Patient Education: Exercise program, Modified ADL techniques, Purpose of tx/ functional activities Teaching Recipient: Patient Teaching Methods: Demonstration, Discussion Response to Teaching: Verbalize Understanding, Return Demonstration OT Short Term Goals Short Term Goals Time Frame: Apr 21, 2016 Toileting(FIM): 5 Transfers (B,C,W/C) (FIM): 5 (met 04/19/15) Toilet/Commode Transfer(FIM): 5 Shower Transfer(FIM): 5 Additional Short Term Goals: 2-Verbalize Understanding, 3-ImproveStrength/Lizzy 1=Demonstrate adherence to instructed precautions during ADL tasks. 2=Patient will verbalize/demonstrate understanding of assistive devices/ modifications for ADL. 3=Patient will improve strength/tolerance for activity to enable patient to perform ADL's. OT Packer Operator Automatic Goals Packer Operator Automatic Goals Time Frame: May 05, 2016 Eating (FIM): 7 Eating (QC): 6 Oral Hygiene (QC): 6 Grooming(FIM): 6 (standing level) Bathing(FIM): 6 Shower/Bathe Self (QC): 6 Upper Body Dressing(FIM): 6 Upper Body Dressing (QC): 6 Lower Body Dressing(FIM): 6 Lower Body Dressing (QC): 6 On/Off Footwear (QC): 6 Toileting(FIM): 6 Toileting Hygiene (QC): 6 Transfers (B,C,W/C) (FIM): 6 Toilet/Commode Transfer(FIM): 6 Toilet/Commode Transfer (QC): 6 Shower Transfer(FIM): 6 Increase bilat UE strength to 5/5 as needed for standing with FWW for ADLs and transfers Additional Goals: 2-Verbalize Understanding, 3-ImproveStrength/Lizzy 1=Demonstrate adherence to instructed precautions during ADL tasks. 2=Patient will verbalize/demonstrate understanding of assistive devices/ modifications for ADL. 3=Patient will improve strength/tolerance for activity to enable patient to perform ADL's. OT Education/Plan Problem List/Assessment Pt would benefit from skilled OT to increase his independence in basic self care so that he can return safely to his apartment, to drive and to go back to work after amputation R LE with resultant weakness, decreased functional mobility, decreased self care, decreased activity tolerance Discharge Recommendations Plan/Recommendations: Continue POC Treatment Plan/Plan of Care Patient would benefit from OT for education, treatment and training to promote independence in ADL's, mobility, safety and/or upper extremity function for ADL' s. Plan of Care: ADL Retraining, Functional Mobility, Group Exercise/Act as Ind ( exercise, education, activity tolerance, functional actiities, socialization), UE Funct Exercise/Act, UE Neuromus Re-Ed/Coord, W/C Management Training Treatment Duration: May 05, 2016 Visits Per Week: 10-11 Minutes/Day (M-F): 75-90 Minutes/Day (Sat/Barrios): PRN Agreement: Yes Rehab Potential: Good Time/GCodes Start Time: 09:40 Stop Time: 10:55 Total Time Billed (hr/min): 75 Billed Treatment Time visit, ADL 50 minutes, exercise 25 minutes NOE VILLEGAS OT Apr 19, 2016 12:58
--- NOTE | 2016-04-19 13:27 | Physical Therapy Daily Note ---
PT Daily Note-Current Subjective Patient is agreeable to participate with PT. Patient does c/o fatigue. Pain Numeric Pain Scale: 0-No Pain Location: No Pain Reported Mental Status Patient Orientation: Normal For Age Transfers Functional [place] Measure 0=Not Assessed/NA 4=Minimal Assistance 1=Total Assistance 5=Supervision or Setup 2=Maximal Assistance 6=Modified [place] 3=Moderate Assistance 7=Complete IndependenceIRFPAI Quality Coding Scale 6 Independent with activity with or without an assistive device 5 Patient requires set up or clean up by helper. Patient completes activity by themselves 4 Supervision or touching assist (CGA). [place] provide cues , steadying assist 3 The helper provides less than half the effort to complete the activity 2 The helper provides more than half the effort to complete the activity 1 Dependent. The helper does all the effort to complete an activity 7 Patient refused to complete or attempt activity 9 The patient did not perform the activity before the current illness or injury 88 Not attempted due to Medical conditions or safety concerns Transfers (B, C, W/C) (FIM): 5 Scootin Sit to/from Stand: 5 Bed to/from Chair: 5 Gait Training Does the Patient Walk?: Yes Gait (FIM): 5 Distance (FIM): 3=150 ft Distance: 150' x2 Gait Level of Assist: 5 Gait Assistive Device: FWW safe and functional Exercises NuStep Minutes: 15 NuStep Workload: 5 Assessment Patient tolerated treatment well and will have dressing change left LE on this date. PT to increase activity as tolerated by patient. PT Short Term Goals Short Term Goals Time Frame: Apr 21, 2016 Transfers (B,C,W/C) (FIM): 5 (met 04/19/15) Gait (FIM): 2 (met 04/19/15) Distance (FIM): 0=023-97 ft Gait Assistive Device: FWW Wheelchair Distance: 300' PT Chcf Goals Chcf Goals PT Chcf Goals Time Frame: May 05, 2016 Transfers (B,C,W/C) (FIM): 6 Sit to Lying (QC): 6 Lying-Sitting on Side/Bed(QC): 6 Sit to Stand (QC): 6 Rollin Roll Left to Right (QC): 6 Chair/[id number] Xfer(QC): 6 Car Transfer (QC): 6 Does the Patient Walk: Yes Gait (FIM): 5 (household distance) Gait distance (FIM): 7=323-52 ft Distance: 50 ft Walk 10 feet (QC): 6 Walk 10ft-Uneven Surface(QC): 6 Walk 50ft with 2 Turns (QC): 6 Walk 150 ft (QC): 88 Gait Level of Assist: 6 Gait Assistive Device: FWW Does the Pt use WC or Scooter?: Yes Wheelchair (FIM): 6 Wheelchair distance (FIM): 3=150 ft Wheelchair Level of Assist: 6 Wheel 50 feet with 2 turns (QC: 6 Stairs (FIM): 2 # of Steps: 4 1 Step (curb) (QC): 5 4 Steps (QC): 5 12 Steps (QC): 88 Stairs Level Of Assist: 4 (cga) Picking up an Object (QC): 88 (unsafe with BKA) PT Plan Treatment/Plan Treatment Plan: Continue Plan of Care Treatment Plan: Bed Mobility, Education, Functional Activity Lizzy, Functional Strength, Group Therapy, Gait, Safety, Therapeutic Exercise, Transfers Treatment Duration: May 05, 2016 Visits Per Week: 10-15 Minutes/Day (M-F): 60-90 Minutes/Day (Sat/Barrios): prn Time/GCodes Time In: 1255 Time Out: 1325 Total Billed Treatment Time: 30 Total Billed Treatment 1 visit EX 15 min GT 15 min RINA MARMOLEJO PT Apr 19, 2016 13:27
--- NOTE | 2016-04-19 14:17 | Occupational Ther Daily Note ---
OT Current Status-Daily Note Subjective Pt lying in bed. No pain reported. Agreeable to OT. Appearance Alert, Cooperative Mental Status/Objective Functional [place] Measure 0=Not Assessed/NA 4=Minimal Assistance 1=Total Assistance 5=Supervision or Setup 2=Maximal Assistance 6=Modified [place] 3=Moderate Assistance 7=Complete [place] ADL-Treatment Functional [place] Measure 0=Not Assessed/NA 4=Minimal Assistance 1=Total Assistance 5=Supervision or Setup 2=Maximal Assistance 6=Modified [place] 3=Moderate Assistance 7=Complete IndependenceIRFPAI Quality Coding Scale 6 Independent with activity with or without an assistive device 5 Patient requires set up or clean up by helper. Patient completes activity by themselves 4 Supervision or touching assist (CGA). [place] provide cues , steadying assist 3 The helper provides less than half the effort to complete the activity 2 The helper provides more than half the effort to complete the activity 1 Dependent. The helper does all the effort to complete an activity 7 Patient refused to complete or attempt activity 9 The patient did not perform the activity before the current illness or injury 88 Not attempted due to Medical conditions or safety concerns Other Treatment Pt used red (medium ) resistance for shoulder, biceps, triceps strength 12 reps. Hand gripper used for strengthening grasp and release. Both activities completed with no breaks to help with transfers and standing during ADLs. Pt left sitting up in bed, call light in reach. All needs met in room. Education OT Patient Education: Home exercise program, Progress toward Goal/Update tx plan, Purpose of tx/functional activities Teaching Recipient: Patient Teaching Methods: Demonstration, Handout, Discussion Response to Teaching: Verbalize Understanding, Return Demonstration OT Short Term Goals Short Term Goals Time Frame: Apr 21, 2016 Toileting(FIM): 5 Transfers (B,C,W/C) (FIM): 5 (met 04/19/15) Toilet/Commode Transfer(FIM): 5 Shower Transfer(FIM): 5 Additional Short Term Goals: 2-Verbalize Understanding, 3-ImproveStrength/Lizzy 1=Demonstrate adherence to instructed precautions during ADL tasks. 2=Patient will verbalize/demonstrate understanding of assistive devices/ modifications for ADL. 3=Patient will improve strength/tolerance for activity to enable patient to perform ADL's. OT Mcc Goals Mcc Goals Time Frame: May 05, 2016 Eating (FIM): 7 Eating (QC): 6 Oral Hygiene (QC): 6 Grooming(FIM): 6 (standing level) Bathing(FIM): 6 Shower/Bathe Self (QC): 6 Upper Body Dressing(FIM): 6 Upper Body Dressing (QC): 6 Lower Body Dressing(FIM): 6 Lower Body Dressing (QC): 6 On/Off Footwear (QC): 6 Toileting(FIM): 6 Toileting Hygiene (QC): 6 Transfers (B,C,W/C) (FIM): 6 Toilet/Commode Transfer(FIM): 6 Toilet/Commode Transfer (QC): 6 Shower Transfer(FIM): 6 Increase bilat UE strength to 5/5 as needed for standing with FWW for ADLs and transfers Additional Goals: 2-Verbalize Understanding, 3-ImproveStrength/Lizzy 1=Demonstrate adherence to instructed precautions during ADL tasks. 2=Patient will verbalize/demonstrate understanding of assistive devices/ modifications for ADL. 3=Patient will improve strength/tolerance for activity to enable patient to perform ADL's. OT Education/Plan Problem List/Assessment Pt would benefit from skilled OT to increase his independence in basic self care so that he can return safely to his apartment, to drive and to go back to work after amputation R LE with resultant weakness, decreased functional mobility, decreased self care, decreased activity tolerance Discharge Recommendations Plan/Recommendations: Continue POC Treatment Plan/Plan of Care Patient would benefit from OT for education, treatment and training to promote independence in ADL's, mobility, safety and/or upper extremity function for ADL' s. Plan of Care: ADL Retraining, Functional Mobility, Group Exercise/Act as Ind ( exercise, education, activity tolerance, functional actiities, socialization), UE Funct Exercise/Act, UE Neuromus Re-Ed/Coord, W/C Management Training Treatment Duration: May 05, 2016 Visits Per Week: 10-11 Minutes/Day (M-F): 75-90 Minutes/Day (Sat/Barrios): PRN Agreement: Yes Rehab Potential: Good Time/GCodes Start Time: 13:30 Stop Time: 14:00 Total Time Billed (hr/min): 30 Billed Treatment Time visit, EX 30 min HERMINIA JANE Apr 19, 2016 14:17
[2016-04-19] MEDS: FERROUS SULF 325 MG (IRON) TAB PO SCH (16:18)
--- NOTE | 2016-04-19 18:07 | PM & R (SOAP) Progress Note ---
Subjective Subjective/Events-last exam Patient was seen in his room this noonhour Progressing well with therapies Residual limb swelling down and dressing loose DR Moreno to see tomorrow.,DM better controlled today with accuchecks in 100s Objective Exam Last Set of Vital Signs Vital Signs Date Time Temp Pulse Resp B/P Pulse Ox O2 Delivery O2 Flow Rate FiO2 04/19/16 07:55 Room Air 04/19/16 06:00 95.7 51 19 109/46 100 Capillary Refill : I&O Intake and Output 04/19/16 00:00 Intake Total 1544 ml Output Total 1675 ml Balance -131 ml Intake Oral 1544 ml Output Urine Total 1675 ml # Bowel Movements 1 General: Alert, Oriented X3, Cooperative, No Acute Distress HEENT: Atraumatic, PERRLA, EOMI, Mucous Memb Moist/Binger Neck: Supple, No JVD Lungs: Clear to Auscultation Heart: Regular Rate Abdomen: Normal Bowel Sounds, Soft, No Tenderness Extremities: Other (RT BKA wrapped and trace edema left leg good strength throughout drsssing loose with decreased edema apparently) Results Lab Laboratory Tests 04/16/16 22:20: Glucometer 358H 04/17/16 05:48: Glucometer 46*L 04/17/16 06:10: Glucometer 99 04/17/16 11:04: Glucometer 201H 04/17/16 17:00: Glucometer 102 04/17/16 21:25: Glucometer 88 04/18/16 04:19: Glucometer 111H 04/18/16 08:42: Glucometer 44*L 04/18/16 08:55: Glucometer 51*L 04/18/16 09:28: Glucometer 99 04/18/16 11:07: Glucometer 154H 04/19/16 11:04: Glucometer 137H 04/19/16 15:59: Glucometer 199H Assessment/Plan Assessment s/p rt BKA for Charcot foot with instability Type 1 DM has Insulin pump with better control at this point 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 and Gabapentin and Lyrica with meds adjusted Depression/Anxiety on meds via [employer] Postop anemia on replacement DVT Prophylaxis Start Lovenox SUBCUT Plan Continue PT/OT ST has signed off DR Moreno managing wound care Lovenox Sub cut for dvt Prophylaxis Continue replacement for Anemia Ongoing Pain management Hospitalist consulted=Appreciate Dr Carr consult F/U re better Type 1 DM control-done patient manageing himself with Insulin pump with corrections as per patient Team Conference tomorrow 04/20/16 DR Moreno ortho to see tomorrow RADHA GUPTA MD Apr 19, 2016 18:07
[2016-04-19 18:22] VITALS: BP 115/70
[2016-04-19] MEDS: CALCIUM CARBONATE 600 MG (CALCARB) TAB PO SCH (20:56)
[2016-04-19] MEDS: ATORVASTATIN 40 MG (LIPITOR) TABLET PO SCH (20:56)
[2016-04-19] MEDS: clonazePAM 1 MG (KlonoPIN) TAB PO SCH (21:00)
[2016-04-20] MEDS: oxyCODONE/APAP 10/325MG (PERCOCET 10) TABLET PO PRN ×5 (04:35→22:17)
[2016-04-20 06:00] VITALS: BP 130/72
[2016-04-20] MEDS: MULTIVIT W/MINERALS TAB (THERAGRAN M) PO SCH (06:30)
[2016-04-20] MEDS: LEVOTHYROXINE 100 MCG (LEVOTHROID) TAB PO SCH (06:30)
[2016-04-20] MEDS: buPROPion SR 100 MG (WELLBUTRIN SR) TAB PO SCH ×2 (06:30→17:21)
[2016-04-20] MEDS: OMEGA 3 (FISH OIL) 1000 MG CAP PO SCH ×4 (08:50→20:28)
[2016-04-20] MEDS: PREGABALIN 50 MG (LYRICA) CAP PO SCH ×2 (08:50→20:28)
[2016-04-20] MEDS: PREGABALIN 100 MG (LYRICA) CAPSULE PO SCH ×2 (08:51→20:28)
[2016-04-20] MEDS: clonazePAM 0.5 MG (KlonoPIN) TAB PO SCH (08:51)
[2016-04-20] MEDS: ASPIRIN E.C. 325 MG (ECOTRIN) TABLET PO SCH (08:52)
[2016-04-20] MEDS: SERTRALINE 100 MG (ZOLOFT) TAB PO SCH (08:53)
[2016-04-20] MEDS: FUROSEMIDE 40 MG (LASIX) TAB PO SCH (08:54)
[2016-04-20] MEDS: busPIRone 10 MG (BUSPAR) TAB PO SCH ×3 (08:54→20:28)
[2016-04-20] MEDS: DOCUSATE SODIUM 100 MG (COLACE) CAP PO SCH ×2 (08:54→20:27)
[2016-04-20] MEDS ORDERED: NEO/POLY/BAC (NEOSPORIN) OINT 15 GM TUBE TOP NR (09:00)
--- NOTE | 2016-04-20 10:40 | Occupational Ther Daily Note ---
OT Current Status-Daily Note Subjective Pt sitting on EOB. No pain reported. Agreeable to OT. Appearance Alert, Cooperative Mental Status/Objective Functional [place] Measure 0=Not Assessed/NA 4=Minimal Assistance 1=Total Assistance 5=Supervision or Setup 2=Maximal Assistance 6=Modified [place] 3=Moderate Assistance 7=Complete [place] ADL-Treatment Pt stated he would like a shower. Plastic bag used to wrap R leg. Pt stood from EOB, without help using FWW for balance. Pt ambulated to shower FWW, SBA. Pt transferred on to shower bench to doff shirt, brief, slipper socks, SBA. Pt turned water on/off and retrieved towels from bar. Pt washed/ dried all body parts,set up, SBA when drying bottom. Shower bench, hand held shower, grab bars. Pt donned shirt, brief while sitting on shower bench, setup. Pt ambulated to EOB to don shorts, compression sock, FWW, SBA, using modified technique for donning sock. Pt ambulated to bathroom, stood in front of sink to brush teeth, hair and shave, FWW, SBA, leaning on sink for balance (pt educ hand placement and safety). w/c placed behind pt for pt to take recovery breaks during ADL tasks. Pt propelled w/c back to room to retrieve sock from closet. Pt donned sock and shoe without help. Pt shown transfer tub bench and discussed this versus shower chair. Pt provided with information on toilet riser and grab bar placement for ADA. Pt care transferred to PT. Functional [place] Measure 0=Not Assessed/NA 4=Minimal Assistance 1=Total Assistance 5=Supervision or Setup 2=Maximal Assistance 6=Modified [place] 3=Moderate Assistance 7=Complete IndependenceIRFPAI Quality Coding Scale 6 Independent with activity with or without an assistive device 5 Patient requires set up or clean up by helper. Patient completes activity by themselves 4 Supervision or touching assist (CGA). [place] provide cues , steadying assist 3 The helper provides less than half the effort to complete the activity 2 The helper provides more than half the effort to complete the activity 1 Dependent. The helper does all the effort to complete an activity 7 Patient refused to complete or attempt activity 9 The patient did not perform the activity before the current illness or injury 88 Not attempted due to Medical conditions or safety concerns Grooming (FIM): 5 (standing at sink) Bathing (FIM): 5 (setup for covering leg) Bathing Location: L Arm, R Arm, L Upper Leg, R Upper Leg, L Lower Leg ( including foot), R Lower Leg (including foot), Chest, Abdomen, Buttocks, Perineal Area Upper Body (FIM): 5 Lower Body Dressing (FIM): 5 Transfers (B, C, W/C) (FIM): 5 Shower Transfer(FIM): 5 Education OT Patient Education: Modified ADL techniques, Progress toward Goal/Update tx plan, Safety issues, Transfer techniques, Other (discussion on different types of shower chairs, hand held shower. ) Teaching Recipient: Patient Teaching Methods: Demonstration, Discussion Response to Teaching: Verbalize Understanding, Return Demonstration OT Short Term Goals Short Term Goals Time Frame: Apr 21, 2016 Toileting(FIM): 5 Transfers (B,C,W/C) (FIM): 5 (met 04/19/15) Toilet/Commode Transfer(FIM): 5 Shower Transfer(FIM): 5 Additional Short Term Goals: 2-Verbalize Understanding, 3-ImproveStrength/Lizzy 1=Demonstrate adherence to instructed precautions during ADL tasks. 2=Patient will verbalize/demonstrate understanding of assistive devices/ modifications for ADL. 3=Patient will improve strength/tolerance for activity to enable patient to perform ADL's. OT Health Information Clerk Goals Custodial Goals Time Frame: May 05, 2016 Eating (FIM): 7 Eating (QC): 6 Oral Hygiene (QC): 6 Grooming(FIM): 6 (standing level) Bathing(FIM): 6 Shower/Bathe Self (QC): 6 Upper Body Dressing(FIM): 6 Upper Body Dressing (QC): 6 Lower Body Dressing(FIM): 6 Lower Body Dressing (QC): 6 On/Off Footwear (QC): 6 Toileting(FIM): 6 Toileting Hygiene (QC): 6 Transfers (B,C,W/C) (FIM): 6 Toilet/Commode Transfer(FIM): 6 Toilet/Commode Transfer (QC): 6 Shower Transfer(FIM): 6 Increase bilat UE strength to 5/5 as needed for standing with FWW for ADLs and transfers Additional Goals: 2-Verbalize Understanding, 3-ImproveStrength/Lizzy 1=Demonstrate adherence to instructed precautions during ADL tasks. 2=Patient will verbalize/demonstrate understanding of assistive devices/ modifications for ADL. 3=Patient will improve strength/tolerance for activity to enable patient to perform ADL's. OT Education/Plan Problem List/Assessment Pt would benefit from skilled OT to increase his independence in basic self care so that he can return safely to his apartment, to drive and to go back to work after amputation R LE with resultant weakness, decreased functional mobility, decreased self care, decreased activity tolerance Discharge Recommendations Plan/Recommendations: Continue POC Treatment Plan/Plan of Care Patient would benefit from OT for education, treatment and training to promote independence in ADL's, mobility, safety and/or upper extremity function for ADL' s. Plan of Care: ADL Retraining, Functional Mobility, Group Exercise/Act as Ind ( exercise, education, activity tolerance, functional actiities, socialization), UE Funct Exercise/Act, UE Neuromus Re-Ed/Coord, W/C Management Training Treatment Duration: May 05, 2016 Visits Per Week: 10-11 Minutes/Day (M-F): 75-90 Minutes/Day (Sat/Barrios): PRN Agreement: Yes Rehab Potential: Good Time/GCodes Start Time: 09:15 Stop Time: 10:15 Total Time Billed (hr/min): 60 Billed Treatment Time visit, ADL 60 min NOE VILLEGAS OT Apr 20, 2016 10:39
--- NOTE | 2016-04-20 11:00 | Progress Note-Hospitalist ---
Progress Note HPI/CC on Admission CC: Medical management of type I diabetic status post right below the knee amputation POD # 3 HPI: This is a 61-year-old white male clinic patient of Dr. 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 He has an insulin pump which she is managing under endocrinology orders and he has been placed back on fentanyl patch of which he's been on for multiple years due to severe neuropathy and overall chronic pain. He does receive an enema every 3 days due to colonic dysfunction from diabetes and overall he denies any significant problems and is very impressed with the inpatient rehabilitation facility in facilitating his recovery. 1. Type 1 diabetes mellitus has an insulin pump Medtronic. 2. Coronary artery disease. 3. Diabetic peripheral neuropathy. 4. Chronic neuropathic pain. 5. Hypertension. 6. NH. 7. Peripheral vascular disease. 8. Hypercholesteremia. 9. Anxiety. 10. Depression. 11. DVT. 12. Renal sufficiency. 13. Anemia. Progress Notes/Assess & Plan Date Seen 04/20/16 Admission Dx/Process Assessment: Debility following right below the knee amputation by Dr. Moreno uncomplicated Problem list per Dr Ravi 1. Type 1 diabetes mellitus has an insulin pump Medtronic. 2. Coronary artery disease. 3. Diabetic peripheral neuropathy. 4. Chronic neuropathic pain. 5. Hypertension. 6. NH. 7. Peripheral vascular disease. 8. Hypercholesteremia. 9. Anxiety. 10. Depression. 11. DVT. 12. Renal sufficiency. 13. Anemia. 14. 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 Wound is healing very well. Pt is managing insulin pump. Pt is receiving enema every three days, as is his usual routine. Pt has been ambulating very well with walker using only his left leg, and will likely DC next week if not sooner. Patient Interview: Pt states that he is experiencing peripheral neuropathy bilaterally. Physical exam was stable. Pt has no requests at this time. Scribed by Brian Rowe under the direct supervision of Dr. Hilton. AFVSS, [place], O x 3 RRR, CTAB no rales noted No edema Assessment: Debility following right below the knee amputation by Dr. Moreno uncomplicated Problem list per Dr Ravi 1. Type 1 diabetes mellitus has an insulin pump Medtronic. 2. Coronary artery disease. 3. Diabetic peripheral neuropathy. 4. Chronic neuropathic pain. 5. Hypertension. 6. NH. 7. Peripheral vascular disease. 8. Hypercholesteremia. 9. Anxiety. 10. Depression. 11. DVT. 12. Renal sufficiency. 13. Anemia. 14. chronic constipation requiring enema every 3 days Plan: Continue fentanyl patch Insulin pump Lovenox for DVT prophylaxis until more mobile Monitor closely HOWARD HILTON DO Apr 20, 2016 11:00
--- NOTE | 2016-04-20 11:15 | Physical Therapy Daily Note ---
PT Daily Note-Current Subjective Pt. agrees to Rx. States he has some pain in his back with LE ther ex in supine. States it is positional and he feels it started back before his amputation when he was using a knee scooter. Pain Numeric Pain Scale: 0-No Pain Mental Status Patient Orientation: Normal For Age Transfers Functional [place] Measure 0=Not Assessed/NA 4=Minimal Assistance 1=Total Assistance 5=Supervision or Setup 2=Maximal Assistance 6=Modified [place] 3=Moderate Assistance 7=Complete IndependenceIRFPAI Quality Coding Scale 6 Independent with activity with or without an assistive device 5 Patient requires set up or clean up by helper. Patient completes activity by themselves 4 Supervision or touching assist (CGA). [place] provide cues , steadying assist 3 The helper provides less than half the effort to complete the activity 2 The helper provides more than half the effort to complete the activity 1 Dependent. The helper does all the effort to complete an activity 7 Patient refused to complete or attempt activity 9 The patient did not perform the activity before the current illness or injury 88 Not attempted due to Medical conditions or safety concerns Transfers (B, C, W/C) (FIM): 6 Scootin Rollin Supine to/from Sit: 6 Sit to/from Stand: 6 Bed to/from Chair: 6 reviewed safe SPT toward existing LE just as safe guard if pt.were to have low BS and begin a TRF Gait Training Does the Patient Walk?: Yes Gait (FIM): 5 Distance (FIM): 3=150 ft (x1) Gait Level of Assist: 5 Gait Persons Needed: 1 Gait Assistive Device: FWW w/c f/u Wheelchair Training Does the Pt Use a Wheelchair?: Yes Wheelchair (FIM): 6 Wheelchair Distance: 3=150 ft (500l=plus) Wheelchair Level of Assist: 6 Type of Wheelchair: Manual Exercises Supine Ex: Bridging, Ankle pumps, Quad Set, Rolling, Glut sets, Lower trunk rotation, Heel Slides, Knee to chest, Short Arc Quads, Scooting, Straight leg raise, Hip abd/add Supine Reps: 15 ng hip abd, prone ham curls and hip ext all x15 Assessment Current Status: Excellent Progress good progress, up in w/c after Rx PT Short Term Goals Short Term Goals Time Frame: Apr 21, 2016 Transfers (B,C,W/C) (FIM): 5 (met 04/19/15) Gait (FIM): 2 (met 04/19/15) Distance (FIM): 0=716-53 ft Gait Assistive Device: FWW Wheelchair Distance: 300' PT Deposition Operator Goals Halfway Goals PT Deposition Operator Goals Time Frame: May 05, 2016 Transfers (B,C,W/C) (FIM): 6 Sit to Lying (QC): 6 Lying-Sitting on Side/Bed(QC): 6 Sit to Stand (QC): 6 Rollin Roll Left to Right (QC): 6 Chair/Ugx-co-Wwrgi Xfer(QC): 6 Car Transfer (QC): 6 Does the Patient Walk: Yes Gait (FIM): 5 (household distance) Gait distance (FIM): 9=532-40 ft Distance: 50 ft Walk 10 feet (QC): 6 Walk 10ft-Uneven Surface(QC): 6 Walk 50ft with 2 Turns (QC): 6 Walk 150 ft (QC): 88 Gait Level of Assist: 6 Gait Assistive Device: FWW Does the Pt use WC or Scooter?: Yes Wheelchair (FIM): 6 Wheelchair distance (FIM): 3=150 ft Wheelchair Level of Assist: 6 Wheel 50 feet with 2 turns (QC: 6 Stairs (FIM): 2 # of Steps: 4 1 Step (curb) (QC): 5 4 Steps (QC): 5 12 Steps (QC): 88 Stairs Level Of Assist: 4 (cga) Picking up an Object (QC): 88 (unsafe with BKA) PT Plan Treatment/Plan Treatment Plan: Continue Plan of Care Treatment Plan: Bed Mobility, Education, Functional Activity Lizzy, Functional Strength, Group Therapy, Gait, Safety, Therapeutic Exercise, Transfers Treatment Duration: May 05, 2016 Visits Per Week: 10-15 Minutes/Day (M-F): 60-90 Minutes/Day (Sat/Barrios): prn Safety Risks/Education Patient Education: Gait Training, Transfer Techniques, Issued Written HEP, Correct Positioning, W/C Management, Disease Process, Safety Issues Teaching Recipient: Patient Teaching Methods: Demonstration, Discussion Response to Teaching: Verbalize Understanding, Return Demonstration, Reinforcement Needed Time/GCodes Time In: 1015 Time Out: 1115 Total Billed Treatment Time: 60 Total Billed Treatment 1,GT15m,FA15m,EX30m G Codes Necessary: No LUEBBER, WINSTON A CHEMICAL WEIGHER Apr 20, 2016 11:15
--- NOTE | 2016-04-20 12:04 | PM & R (SOAP) Progress Note ---
Subjective Subjective/Events-last exam Patient was seen in his room this AM Residual limb rewrapped by ortho this AM Progressing well with therapies.Patient Modified Independent for transfers Objective Exam Last Set of Vital Signs Vital Signs Date Time Temp Pulse Resp B/P Pulse Ox O2 Delivery O2 Flow Rate FiO2 04/20/16 06:00 97.1 52 16 130/72 96 Room Air Capillary Refill : I&O Intake and Output 04/20/16 00:00 Intake Total 1420 ml Output Total 2750 ml Balance -1330 ml Intake Oral 1420 ml Output Urine Total 2750 ml General: Alert, Oriented X3, Cooperative, No Acute Distress HEENT: Atraumatic, PERRLA, EOMI, Mucous Memb Moist/[place] Neck: Supple, No JVD Lungs: Clear to Auscultation Heart: Regular Rate Abdomen: Normal Bowel Sounds, Soft, No Tenderness Extremities: Other (RT BKA wrapped and trace edema left leg good strength throughout drsssing loose with decreased edema apparently) Results Lab Laboratory Tests 04/17/16 17:00: Glucometer 102 04/17/16 21:25: Glucometer 88 04/18/16 04:19: Glucometer 111H 04/18/16 08:42: Glucometer 44*L 04/18/16 08:55: Glucometer 51*L 04/18/16 09:28: Glucometer 99 04/18/16 11:07: Glucometer 154H 04/19/16 11:04: Glucometer 137H 04/19/16 15:59: Glucometer 199H Assessment/Plan Assessment s/p rt BKA for Charcot foot with instability Type 1 DM has Insulin pump with better control at this point 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 and Gabapentin and Lyrica with meds adjusted Depression/Anxiety on meds via [facility] Postop anemia on replacement DVT Prophylaxis Start Lovenox SUBCUT Plan Continue PT/OT ST has signed off DR Moreno managing wound care-his magistrate assistant has seen today Lovenox Sub cut for dvt Prophylaxis Continue replacement for Anemia Ongoing Pain management Hospitalist consulted=Appreciate Dr Carr consult F/U re better Type 1 DM control-done patient manageing himself with Insulin pump with corrections as per patie DR Moreno ortho to see in f/u PRN Team Conference later today-See report for full functional update and POC and RADHA ARITA MD Apr 20, 2016 12:04
[2016-04-20] MEDS: ENOXAPARIN 40 MG/0.4 ML (LOVENOX) SYR SC SCH (12:28)
--- NOTE | 2016-04-20 14:43 | Therapy Group Daily Note ---
Therapy Daily Group Note Patient Education Topic Home Safety, Fall Prevention, Exercises, Other List Below (ARU expectations and description) Exercises LE Seated Exercise, UE Exercise Other/Notes Pt propelled self to therapy commons area. Pt participated in peer interaction, socializing by introducing self and place of currently living. Problem solving used to answer questions to complete cognitive activity. UE,LE exercise seated in chair. Balloon used for eye hand coordination. Pt propelled back to room. Call light in hand. All needs met. Start Time: 13:00 Stop Time: 14:00 Total Billed Treatment Time: 60 Total Billed Treatment 1-GRP HERMINIA JANE Apr 20, 2016 14:43
[2016-04-20] MEDS: FERROUS SULF 325 MG (IRON) TAB PO SCH (17:20)
[2016-04-20] MEDS: fentaNYL PATCH 75 MCG (DURAGESIC) TD SCH (17:25)
[2016-04-20] MEDS: FENTANYL PATCH REMOVAL TP SCH (17:27)
[2016-04-20 17:36] VITALS: BP 108/62
[2016-04-20] MEDS: clonazePAM 1 MG (KlonoPIN) TAB PO SCH (20:27)
[2016-04-20] MEDS: CALCIUM CARBONATE 600 MG (CALCARB) TAB PO SCH (20:27)
[2016-04-20] MEDS: ATORVASTATIN 40 MG (LIPITOR) TABLET PO SCH (20:28)
[2016-04-20] MEDS: FLEET ENEMA ADULT 1 EA BTL PR PRN (21:35)
[2016-04-21] MEDS: oxyCODONE/APAP 10/325MG (PERCOCET 10) TABLET PO PRN ×5 (02:02→20:31)
[2016-04-21 06:00] VITALS: BP 118/49
[2016-04-21] MEDS: LEVOTHYROXINE 100 MCG (LEVOTHROID) TAB PO SCH (06:05)
[2016-04-21] MEDS: MULTIVIT W/MINERALS TAB (THERAGRAN M) PO SCH (06:05)
[2016-04-21] MEDS: buPROPion SR 100 MG (WELLBUTRIN SR) TAB PO SCH ×2 (06:05→16:27)
[2016-04-21] MEDS: PREGABALIN 50 MG (LYRICA) CAP PO SCH ×2 (08:10→20:30)
[2016-04-21] MEDS: busPIRone 10 MG (BUSPAR) TAB PO SCH ×3 (08:10→20:30)
[2016-04-21] MEDS: ASPIRIN E.C. 325 MG (ECOTRIN) TABLET PO SCH (08:10)
[2016-04-21] MEDS: PREGABALIN 100 MG (LYRICA) CAPSULE PO SCH ×2 (08:10→20:30)
[2016-04-21] MEDS: SERTRALINE 100 MG (ZOLOFT) TAB PO SCH (08:10)
[2016-04-21] MEDS: DOCUSATE SODIUM 100 MG (COLACE) CAP PO SCH ×2 (08:11→20:31)
[2016-04-21] MEDS: clonazePAM 0.5 MG (KlonoPIN) TAB PO SCH (08:11)
[2016-04-21] MEDS: OMEGA 3 (FISH OIL) 1000 MG CAP PO SCH ×4 (08:11→20:31)
--- NOTE | 2016-04-21 09:35 | Occupational Ther Daily Note ---
OT Current Status-Daily Note Subjective Pt sitting in therapy commons area. Pt stated he had a sleepless night due to pain on his R leg. No pain present. Agreeable to OT. Appearance Alert, cooperative Mental Status/Objective Functional [place] Measure 0=Not Assessed/NA 4=Minimal Assistance 1=Total Assistance 5=Supervision or Setup 2=Maximal Assistance 6=Modified [place] 3=Moderate Assistance 7=Complete [place] ADL-Treatment Functional [place] Measure 0=Not Assessed/NA 4=Minimal Assistance 1=Total Assistance 5=Supervision or Setup 2=Maximal Assistance 6=Modified [place] 3=Moderate Assistance 7=Complete IndependenceIRFPAI Quality Coding Scale 6 Independent with activity with or without an assistive device 5 Patient requires set up or clean up by helper. Patient completes activity by themselves 4 Supervision or touching assist (CGA). [place] provide cues , steadying assist 3 The helper provides less than half the effort to complete the activity 2 The helper provides more than half the effort to complete the activity 1 Dependent. The helper does all the effort to complete an activity 7 Patient refused to complete or attempt activity 9 The patient did not perform the activity before the current illness or injury 88 Not attempted due to Medical conditions or safety concerns Other Treatment Pt propelled self to gym, without help. Pt used arm bike for UE strengthening 17 min, 20 reyes (previous time 15 min 20 reyes 04/19/16). Nuts & bolts, Arc activity, rico bag toss with 2# wrist weights on each wrist to increase UE strength for transfers (previous wrist weight 1# 04/18/16). Pt propelled self back to room. Call light in reach. All needs met. Education OT Patient Education: Exercise program, Progress toward Goal/Update tx plan, Purpose of tx/functional activities, Other (OT explained and described the benefits of Mirror Therapy ) Teaching Recipient: Patient Teaching Methods: Demonstration, Discussion Response to Teaching: Verbalize Understanding, Return Demonstration OT Short Term Goals Short Term Goals Time Frame: Apr 21, 2016 Toileting(FIM): 5 Transfers (B,C,W/C) (FIM): 5 (met 04/19/15) Toilet/Commode Transfer(FIM): 5 Shower Transfer(FIM): 5 Additional Short Term Goals: 2-Verbalize Understanding, 3-ImproveStrength/Lizzy 1=Demonstrate adherence to instructed precautions during ADL tasks. 2=Patient will verbalize/demonstrate understanding of assistive devices/ modifications for ADL. 3=Patient will improve strength/tolerance for activity to enable patient to perform ADL's. OT Retirement Goals Zone Manager Goals Time Frame: May 05, 2016 Eating (FIM): 7 Eating (QC): 6 Oral Hygiene (QC): 6 Grooming(FIM): 6 (standing level) Bathing(FIM): 6 Shower/Bathe Self (QC): 6 Upper Body Dressing(FIM): 6 Upper Body Dressing (QC): 6 Lower Body Dressing(FIM): 6 Lower Body Dressing (QC): 6 On/Off Footwear (QC): 6 Toileting(FIM): 6 Toileting Hygiene (QC): 6 Transfers (B,C,W/C) (FIM): 6 Toilet/Commode Transfer(FIM): 6 Toilet/Commode Transfer (QC): 6 Shower Transfer(FIM): 6 Increase bilat UE strength to 5/5 as needed for standing with FWW for ADLs and transfers Additional Goals: 2-Verbalize Understanding, 3-ImproveStrength/Lizzy 1=Demonstrate adherence to instructed precautions during ADL tasks. 2=Patient will verbalize/demonstrate understanding of assistive devices/ modifications for ADL. 3=Patient will improve strength/tolerance for activity to enable patient to perform ADL's. OT Education/Plan Problem List/Assessment Pt would benefit from skilled OT to increase his independence in basic self care so that he can return safely to his apartment, to drive and to go back to work after amputation R LE with resultant weakness, decreased functional mobility, decreased self care, decreased activity tolerance Discharge Recommendations Plan/Recommendations: Continue POC Treatment Plan/Plan of Care Patient would benefit from OT for education, treatment and training to promote independence in ADL's, mobility, safety and/or upper extremity function for ADL' s. Plan of Care: ADL Retraining, Functional Mobility, Group Exercise/Act as Ind ( exercise, education, activity tolerance, functional actiities, socialization), UE Funct Exercise/Act, UE Neuromus Re-Ed/Coord, W/C Management Training Treatment Duration: May 05, 2016 Visits Per Week: 10-11 Minutes/Day (M-F): 75-90 Minutes/Day (Sat/Barrios): PRN Agreement: Yes Rehab Potential: Good Time/GCodes Start Time: 08:30 Stop Time: 09:30 Total Time Billed (hr/min): 60 Billed Treatment Time visit, EX 60 min NOE VILLEGAS OT Apr 21, 2016 09:35
--- NOTE | 2016-04-21 11:14 | Physical Therapy Daily Note ---
PT Daily Note-Current Subjective Pt. agrees to Rx but states he is so very tired b/c he did not sleep at all last night, states he has had problems sleeping before but not to this degree. Pain Numeric Pain Scale: 3 Location: Right Location Body Site: Foot Pain Description: Burning Comment: phantom pain Appearance looks very tired, eyes swollen, groggy Mental Status Patient Orientation: Normal For Age Transfers Functional [place] Measure 0=Not Assessed/NA 4=Minimal Assistance 1=Total Assistance 5=Supervision or Setup 2=Maximal Assistance 6=Modified [place] 3=Moderate Assistance 7=Complete IndependenceIRFPAI Quality Coding Scale 6 Independent with activity with or without an assistive device 5 Patient requires set up or clean up by helper. Patient completes activity by themselves 4 Supervision or touching assist (CGA). [place] provide cues , steadying assist 3 The helper provides less than half the effort to complete the activity 2 The helper provides more than half the effort to complete the activity 1 Dependent. The helper does all the effort to complete an activity 7 Patient refused to complete or attempt activity 9 The patient did not perform the activity before the current illness or injury 88 Not attempted due to Medical conditions or safety concerns Transfers (B, C, W/C) (FIM): 6 Scootin Rollin Supine to/from Sit: 6 Sit to/from Stand: 6 Bed to/from Chair: 6 mod I Gait Training Does the Patient Walk?: Yes Gait (FIM): 5 Distance (FIM): 3=150 ft (x1) Gait Level of Assist: 5 Gait Persons Needed: 1 Gait Assistive Device: FWW w/c f/u for support Wheelchair Training Does the Pt Use a Wheelchair?: Yes Wheelchair (FIM): 7 Wheelchair Distance: 3=150 ft (500 plus) Wheelchair Level of Assist: 7 Type of Wheelchair: Manual up ad mariia Exercises Supine Ex: Bridging, Ankle pumps, Quad Set, Rolling, Glut sets, Heel Slides, Short Arc Quads, Scooting, Straight leg raise, Hip abd/add Supine Reps: 15 Seated Therapy Exercises: Ankle pumps, Sit to stand, Long arc quads, Hip flexion Seated Reps: 12 Standing: Hamstring curls, 3 way Ex=Flex, Abd, Ext Standing Reps: 15 (RLE only) Treatments pt. moving from std room to [facility] on ARU. Pt. unpacking his items from w/c level indep Assessment Current Status: Good Progress very fatigued today PT Short Term Goals Short Term Goals Time Frame: Apr 21, 2016 Transfers (B,C,W/C) (FIM): 5 (met 04/19/15) Gait (FIM): 2 (met 04/19/15) Distance (FIM): 3=985-08 ft Gait Assistive Device: FWW Wheelchair Distance: 300' PT Group Home Goals Group Home Goals PT Traveling Freight Agent Goals Time Frame: May 05, 2016 Transfers (B,C,W/C) (FIM): 6 Sit to Lying (QC): 6 Lying-Sitting on Side/Bed(QC): 6 Sit to Stand (QC): 6 Rollin Roll Left to Right (QC): 6 Chair/Yrk-yt-Wrzwf Xfer(QC): 6 Car Transfer (QC): 6 Does the Patient Walk: Yes Gait (FIM): 5 (household distance) Gait distance (FIM): 7=049-33 ft Distance: 50 ft Walk 10 feet (QC): 6 Walk 10ft-Uneven Surface(QC): 6 Walk 50ft with 2 Turns (QC): 6 Walk 150 ft (QC): 88 Gait Level of Assist: 6 Gait Assistive Device: FWW Does the Pt use WC or Scooter?: Yes Wheelchair (FIM): 6 Wheelchair distance (FIM): 3=150 ft Wheelchair Level of Assist: 6 Wheel 50 feet with 2 turns (QC: 6 Stairs (FIM): 2 # of Steps: 4 1 Step (curb) (QC): 5 4 Steps (QC): 5 12 Steps (QC): 88 Stairs Level Of Assist: 4 (cga) Picking up an Object (QC): 88 (unsafe with BKA) PT Plan Treatment/Plan Treatment Plan: Continue Plan of Care Treatment Plan: Bed Mobility, Education, Functional Activity Lizzy, Functional Strength, Group Therapy, Gait, Safety, Therapeutic Exercise, Transfers Treatment Duration: May 05, 2016 Visits Per Week: 10-15 Minutes/Day (M-F): 60-90 Minutes/Day (Sat/Barrios): prn Safety Risks/Education Patient Education: Gait Training, Transfer Techniques, Issued Written HEP, Correct Positioning, Disease Process, Safety Issues Teaching Recipient: Patient Teaching Methods: Demonstration, Discussion Response to Teaching: Verbalize Understanding, Return Demonstration, Reinforcement Needed Time/GCodes Time In: 1015 Time Out: 1115 Total Billed Treatment Time: 60 Total Billed Treatment 1,GT20m,FA15m,EX25m G Codes Necessary: WINSTON Givens JIGMAKER Apr 21, 2016 11:14
[2016-04-21] MEDS: ENOXAPARIN 40 MG/0.4 ML (LOVENOX) SYR SC SCH (11:24)
--- NOTE | 2016-04-21 12:01 | PM & R (SOAP) Progress Note ---
Subjective Subjective/Events-last exam Patient was seen in his room this AM Moved to Independent apartment today and patient is Modified Independent for transfers.Patient concerned about pain management didnt sleep well last night Hospitalist had adjusted meds earlier this week Patient in NAD at this time Will f/u Objective Exam Last Set of Vital Signs Vital Signs Date Time Temp Pulse Resp B/P Pulse Ox O2 Delivery O2 Flow Rate FiO2 04/21/16 09:00 Room Air 04/21/16 06:00 96.7 58 16 118/49 100 Capillary Refill : I&O Intake and Output 04/21/16 00:00 Intake Total 1320 ml Output Total 2650 ml Balance -1330 ml Intake Oral 1320 ml Output Urine Total 2650 ml General: Alert, Oriented X3, Cooperative, No Acute Distress HEENT: Atraumatic, PERRLA, EOMI, Mucous Memb Moist/[place] Neck: Supple, No JVD Lungs: Clear to Auscultation Heart: Regular Rate Abdomen: Normal Bowel Sounds, Soft, No Tenderness Extremities: Other (RT BKA wrapped and trace edema left leg good strength throughout drsssing loose with decreased edema apparently) Results Lab Laboratory Tests 04/19/16 11:04: Glucometer 137H 04/19/16 15:59: Glucometer 199H 04/20/16 15:42: Glucometer 122H 04/20/16 20:59: Glucometer 183H 04/21/16 06:28: Glucometer 195H 04/21/16 11:20: Glucometer 256H Assessment/Plan Assessment s/p rt BKA for Charcot foot with instability Type 1 DM has Insulin pump with better control at this point 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 and Gabapentin and Lyrica with meds adjusted Depression/Anxiety on meds via [facility] Postop anemia on replacement DVT Prophylaxis Start Lovenox SUBCUT Plan Continue PT/OT ST has signed off DR Moreno managing wound care-his research assistant professor has seen patient yesterday Lovenox Sub cut for dvt Prophylaxis Continue replacement for Anemia Ongoing Pain management Hospitalist consulted=Appreciate Dr Carr consult F/U re better Type 1 DM control-done patient manageing himself with Insulin pump with corrections as per patie DR Moreno ortho to see in f/u PRN Team Conference held yesterday-See report for full functional update and POC and ELOS Pain management RADHA GUPTA MD Apr 21, 2016 12:01
--- NOTE | 2016-04-21 14:53 | Occupational Ther Daily Note ---
OT Current Status-Daily Note Subjective Pt seen in commons area, agreeable to OT. No pain mentioned. Appearance Alert, cooperative Mental Status/Objective Functional [place] Measure 0=Not Assessed/NA 4=Minimal Assistance 1=Total Assistance 5=Supervision or Setup 2=Maximal Assistance 6=Modified [place] 3=Moderate Assistance 7=Complete [place] ADL-Treatment Functional [place] Measure 0=Not Assessed/NA 4=Minimal Assistance 1=Total Assistance 5=Supervision or Setup 2=Maximal Assistance 6=Modified [place] 3=Moderate Assistance 7=Complete IndependenceIRFPAI Quality Coding Scale 6 Independent with activity with or without an assistive device 5 Patient requires set up or clean up by helper. Patient completes activity by themselves 4 Supervision or touching assist (CGA). [place] provide cues , steadying assist 3 The helper provides less than half the effort to complete the activity 2 The helper provides more than half the effort to complete the activity 1 Dependent. The helper does all the effort to complete an activity 7 Patient refused to complete or attempt activity 9 The patient did not perform the activity before the current illness or injury 88 Not attempted due to Medical conditions or safety concerns Other Treatment pt has been transferred to the independent apartment on the unit but is not yet up ad mariia. This apartment has a bathtub instead of shower and will give him the opportunity to practice using a transfer tub bench which he is considering for home. Pt propelled himself to gym. Pt demonstrated competency in doing bilat UE theraband exercises with red (medium) theraband, with occasional cues and education. Pt education and return verbal understanding on how to upgrade these exercises with increased sets, resistance, length of band, greater resistance band. These exercises will continue to help strengthen arms for when he starts ambulating with prosthesis. Pt education on function and anatomy of shoulders and how they help stabilize arms during standing with FWW. Pt education to continue to call for help with transfers in room. Pt took himself back to his room. OT Short Term Goals Short Term Goals Time Frame: Apr 21, 2016 Toileting(FIM): 5 Transfers (B,C,W/C) (FIM): 5 (met 04/19/15) Toilet/Commode Transfer(FIM): 5 Shower Transfer(FIM): 5 Additional Short Term Goals: 2-Verbalize Understanding, 3-ImproveStrength/Lizzy 1=Demonstrate adherence to instructed precautions during ADL tasks. 2=Patient will verbalize/demonstrate understanding of assistive devices/ modifications for ADL. 3=Patient will improve strength/tolerance for activity to enable patient to perform ADL's. OT Call Center Director Goals Halfway Goals Time Frame: May 05, 2016 Eating (FIM): 7 Eating (QC): 6 Oral Hygiene (QC): 6 Grooming(FIM): 6 (standing level) Bathing(FIM): 6 Shower/Bathe Self (QC): 6 Upper Body Dressing(FIM): 6 Upper Body Dressing (QC): 6 Lower Body Dressing(FIM): 6 Lower Body Dressing (QC): 6 On/Off Footwear (QC): 6 Toileting(FIM): 6 Toileting Hygiene (QC): 6 Transfers (B,C,W/C) (FIM): 6 Toilet/Commode Transfer(FIM): 6 Toilet/Commode Transfer (QC): 6 Shower Transfer(FIM): 6 Increase bilat UE strength to 5/5 as needed for standing with FWW for ADLs and transfers Additional Goals: 2-Verbalize Understanding, 3-ImproveStrength/Lizzy 1=Demonstrate adherence to instructed precautions during ADL tasks. 2=Patient will verbalize/demonstrate understanding of assistive devices/ modifications for ADL. 3=Patient will improve strength/tolerance for activity to enable patient to perform ADL's. OT Education/Plan Problem List/Assessment Pt would benefit from skilled OT to increase his independence in basic self care so that he can return safely to his apartment, to drive and to go back to work after amputation R LE with resultant weakness, decreased functional mobility, decreased self care, decreased activity tolerance Discharge Recommendations Plan/Recommendations: Continue POC Treatment Plan/Plan of Care Patient would benefit from OT for education, treatment and training to promote independence in ADL's, mobility, safety and/or upper extremity function for ADL' s. Plan of Care: ADL Retraining, Functional Mobility, Group Exercise/Act as Ind ( exercise, education, activity tolerance, functional actiities, socialization), UE Funct Exercise/Act, UE Neuromus Re-Ed/Coord, W/C Management Training Treatment Duration: May 05, 2016 Visits Per Week: 10-11 Minutes/Day (M-F): 75-90 Minutes/Day (Sat/Barrios): PRN Agreement: Yes Rehab Potential: Good Time/GCodes Start Time: 13:00 Stop Time: 13:30 Total Time Billed (hr/min): 30 Billed Treatment Time visit, 30 minutes exercise NOE VILLEGAS OT Apr 21, 2016 14:53
--- NOTE | 2016-04-21 15:19 | Physical Therapy Daily Note ---
PT Daily Note-Current Subjective Pt. agrees to Rx. Hopes to sleep better tonight. Explained his recollection of his childhood diabetes onset. Also shared some of the lay out of his apt and hopes to try to simulate putting food/plate in microwave and getting it out all while standing etc This was shared with OT Pain Numeric Pain Scale: 0-No Pain Mental Status Patient Orientation: Normal For Age Transfers Functional [place] Measure 0=Not Assessed/NA 4=Minimal Assistance 1=Total Assistance 5=Supervision or Setup 2=Maximal Assistance 6=Modified [place] 3=Moderate Assistance 7=Complete IndependenceIRFPAI Quality Coding Scale 6 Independent with activity with or without an assistive device 5 Patient requires set up or clean up by helper. Patient completes activity by themselves 4 Supervision or touching assist (CGA). [place] provide cues , steadying assist 3 The helper provides less than half the effort to complete the activity 2 The helper provides more than half the effort to complete the activity 1 Dependent. The helper does all the effort to complete an activity 7 Patient refused to complete or attempt activity 9 The patient did not perform the activity before the current illness or injury 88 Not attempted due to Medical conditions or safety concerns all TRFs from different full sz bed to w/c in [facility] apt (where pt has been moved )were Mod I.toilet and Nustep TRFs mod I Gait Training Gait Assistive Device: FWW [id number] SBA to CGA Exercises NuStep Minutes: 12 NuStep Workload: 2 Assessment Current Status: Good Progress pt. tolerated rx well but was perspiring , hopefull of a better nights sleep after good quality cardio PT Short Term Goals Short Term Goals Time Frame: Apr 21, 2016 Transfers (B,C,W/C) (FIM): 5 (met 04/19/15) Gait (FIM): 2 (met 04/19/15) Distance (FIM): 6=528-73 ft Gait Assistive Device: FWW Wheelchair Distance: 300' PT Assistant Golf Coach Goals Assistant Golf Coach Goals PT Care Home Goals Time Frame: May 05, 2016 Transfers (B,C,W/C) (FIM): 6 Sit to Lying (QC): 6 Lying-Sitting on Side/Bed(QC): 6 Sit to Stand (QC): 6 Rollin Roll Left to Right (QC): 6 Chair/Axr-ti-Phlix Xfer(QC): 6 Car Transfer (QC): 6 Does the Patient Walk: Yes Gait (FIM): 5 (household distance) Gait distance (FIM): 0=311-08 ft Distance: 50 ft Walk 10 feet (QC): 6 Walk 10ft-Uneven Surface(QC): 6 Walk 50ft with 2 Turns (QC): 6 Walk 150 ft (QC): 88 Gait Level of Assist: 6 Gait Assistive Device: FWW Does the Pt use WC or Scooter?: Yes Wheelchair (FIM): 6 Wheelchair distance (FIM): 3=150 ft Wheelchair Level of Assist: 6 Wheel 50 feet with 2 turns (QC: 6 Stairs (FIM): 2 # of Steps: 4 1 Step (curb) (QC): 5 4 Steps (QC): 5 12 Steps (QC): 88 Stairs Level Of Assist: 4 (cga) Picking up an Object (QC): 88 (unsafe with BKA) PT Plan Treatment/Plan Treatment Plan: Continue Plan of Care Treatment Plan: Bed Mobility, Education, Functional Activity Lizzy, Functional Strength, Group Therapy, Gait, Safety, Therapeutic Exercise, Transfers Treatment Duration: May 05, 2016 Visits Per Week: 10-15 Minutes/Day (M-F): 60-90 Minutes/Day (Sat/Barrios): prn Safety Risks/Education Patient Education: Gait Training, Transfer Techniques, Correct Positioning, W/ C Management, Safety Issues Teaching Recipient: Patient Teaching Methods: Demonstration, Discussion Response to Teaching: Verbalize Understanding, Return Demonstration, Reinforcement Needed Time/GCodes Time In: 1435 Time Out: 1505 Total Billed Treatment Time: 30 Total Billed Treatment 1,GT18,EX12 G Codes Necessary: WINSTON Givens CAD ENGINEER Apr 21, 2016 15:19
[2016-04-21] MEDS: FERROUS SULF 325 MG (IRON) TAB PO SCH (16:26)
[2016-04-21 18:24] VITALS: BP 107/62
[2016-04-21] MEDS: clonazePAM 1 MG (KlonoPIN) TAB PO SCH (20:30)
[2016-04-21] MEDS: ATORVASTATIN 40 MG (LIPITOR) TABLET PO SCH (20:31)
[2016-04-21] MEDS: CALCIUM CARBONATE 600 MG (CALCARB) TAB PO SCH (20:31)
[2016-04-22 06:00] VITALS: BP 114/65
[2016-04-22] MEDS: LEVOTHYROXINE 100 MCG (LEVOTHROID) TAB PO SCH (06:27)
[2016-04-22] MEDS: MULTIVIT W/MINERALS TAB (THERAGRAN M) PO SCH (06:28)
[2016-04-22] MEDS: oxyCODONE/APAP 10/325MG (PERCOCET 10) TABLET PO PRN ×4 (06:28→20:46)
[2016-04-22] MEDS: buPROPion SR 100 MG (WELLBUTRIN SR) TAB PO SCH ×2 (06:28→16:28)
[2016-04-22] MEDS: PREGABALIN 50 MG (LYRICA) CAP PO SCH ×2 (08:36→20:46)
[2016-04-22] MEDS: PREGABALIN 100 MG (LYRICA) CAPSULE PO SCH ×2 (08:36→20:46)
[2016-04-22] MEDS: OMEGA 3 (FISH OIL) 1000 MG CAP PO SCH ×4 (08:36→20:46)
[2016-04-22] MEDS: SERTRALINE 100 MG (ZOLOFT) TAB PO SCH (08:37)
[2016-04-22] MEDS: ASPIRIN E.C. 325 MG (ECOTRIN) TABLET PO SCH (08:37)
[2016-04-22] MEDS: clonazePAM 0.5 MG (KlonoPIN) TAB PO SCH (08:37)
[2016-04-22] MEDS: DOCUSATE SODIUM 100 MG (COLACE) CAP PO SCH ×2 (08:37→20:46)
[2016-04-22] MEDS: busPIRone 10 MG (BUSPAR) TAB PO SCH ×3 (08:37→20:47)
--- NOTE | 2016-04-22 08:38 | PM & R (SOAP) Progress Note ---
Subjective Subjective/Events-last exam Patient was seen in his room this AM Slept better with better pain control Patient modified Independent for transfers Objective Exam Last Set of Vital Signs Vital Signs Date Time Temp Pulse Resp B/P Pulse Ox O2 Delivery O2 Flow Rate FiO2 04/22/16 06:00 98.2 51 17 114/65 98 Room Air Capillary Refill : I&O Intake and Output 04/22/16 00:00 Intake Total 1350 ml Output Total 2100 ml Balance -750 ml Intake Oral 1350 ml Output Urine Total 2100 ml # Bowel Movements 1 General: Alert, Oriented X3, Cooperative, No Acute Distress HEENT: Atraumatic, PERRLA, EOMI, Mucous Memb Moist/Radar Base Neck: Supple, No JVD Lungs: Clear to Auscultation Heart: Regular Rate Abdomen: Normal Bowel Sounds, Soft, No Tenderness Extremities: Other (RT BKA wrapped and trace edema left leg good strength throughout drsssing loose with decreased edema apparently) Results Lab Laboratory Tests 04/19/16 11:04: Glucometer 137H 04/19/16 15:59: Glucometer 199H 04/20/16 15:42: Glucometer 122H 04/20/16 20:59: Glucometer 183H 04/21/16 06:28: Glucometer 195H 04/21/16 11:20: Glucometer 256H 04/21/16 16:25: Glucometer 100 04/21/16 21:04: Glucometer 203H 04/22/16 06:44: Glucometer 161H Assessment/Plan Assessment s/p rt BKA for Charcot foot with instability Type 1 DM has Insulin pump with better control at this point Chronic Neuropathic pain on D Patch and Gabapentin and Lyrica with meds adjusted Depression/Anxiety on meds via [facility] Postop anemia on replacement DVT Prophylaxis on Lovenox SUBCUT Plan Continue PT/OT ST has signed off DR Moreno managing wound care-his assistant press operator has seen patient 04-20-16 Lovenox Sub cut for dvt Prophylaxis Continue replacement for Anemia Ongoing Pain management Hospitalist consulted=Appreciate Dr Carr consult F/U re better Type 1 DM control-done patient manageing himself with Insulin pump with corrections as per patie DR Moreno ortho to see in f/u PRN Team Conference held 04-20-16-See report for full functional update and POC and ELOS Pain management Patient doing well with Independent apartment RADHA GUPTA MD Apr 22, 2016 08:38
--- NOTE | 2016-04-22 10:11 | Progress Note-Hospitalist ---
Progress Note HPI/CC on Admission CC: Medical management of type I diabetic status post right below the knee amputation POD # 3 HPI: This is a 61-year-old white male clinic patient of Dr. 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 He has an insulin pump which she is managing under endocrinology orders and he has been placed back on fentanyl patch of which he's been on for multiple years due to severe neuropathy and overall chronic pain. He does receive an enema every 3 days due to colonic dysfunction from diabetes and overall he denies any significant problems and is very impressed with the inpatient rehabilitation facility in facilitating his recovery. 1. Type 1 diabetes mellitus has an insulin pump Medtronic. 2. Coronary artery disease. 3. Diabetic peripheral neuropathy. 4. Chronic neuropathic pain. 5. Hypertension. 6. NC. 7. Peripheral vascular disease. 8. Hypercholesteremia. 9. Anxiety. 10. Depression. 11. DVT. 12. Renal sufficiency. 13. Anemia. Progress Notes/Assess & Plan Date Seen 04/22/16 Admission Dx/Process Assessment: Debility following right below the knee amputation by Dr. Moreno uncomplicated Problem list per Dr Ravi 1. Type 1 diabetes mellitus has an insulin pump Medtronic. 2. Coronary artery disease. 3. Diabetic peripheral neuropathy. 4. Chronic neuropathic pain. 5. Hypertension. 6. NC. 7. Peripheral vascular disease. 8. Hypercholesteremia. 9. Anxiety. 10. Depression. 11. DVT. 12. Renal sufficiency. 13. Anemia. 14. chronic constipation requiring enema every 3 days Diagonsis/Assessment & Plan Patient Interview: Pt states that he feels good and will likely DC Monday Pt states that he has not requests at this time Physical exam was stable Scribed by Brian Rowe under the direct supervision of Dr. Hilton. AFVSS, Ple[place], O x 3 RRR, CTAB no rales noted No edema Assessment: Debility following right below the knee amputation by Dr. Moreno uncomplicated Problem list per Dr Ravi 1. Type 1 diabetes mellitus has an insulin pump Medtronic. 2. Coronary artery disease. 3. Diabetic peripheral neuropathy. 4. Chronic neuropathic pain. 5. Hypertension. 6. NC. 7. Peripheral vascular disease. 8. Hypercholesteremia. 9. Anxiety. 10. Depression. 11. DVT. 12. Renal sufficiency. 13. Anemia. 14. chronic constipation requiring enema every 3 days Plan: Continue fentanyl patch Insulin pump Lovenox for DVT prophylaxis until more mobile Monitor closely HOWARD HILTON DO Apr 22, 2016 10:11
[2016-04-22] MEDS ORDERED: CALC-654 PO (10:47)
[2016-04-22] MEDS ORDERED: OXYC-202 PO (10:47)
[2016-04-22] MEDS ORDERED: CLON1TAB3 PO ×2 (10:47)
[2016-04-22] MEDS ORDERED: ASPI-808 PO (10:47)
[2016-04-22] MEDS ORDERED: INSU100V (10:47)
[2016-04-22] MEDS ORDERED: LEVO200T6 PO (10:47)
[2016-04-22] MEDS ORDERED: SERT100T8 PO (10:47)
[2016-04-22] MEDS ORDERED: MULT-35 PO (10:47)
[2016-04-22] MEDS ORDERED: FERR-84 PO (10:47)
[2016-04-22] MEDS ORDERED: BUSP10TA95 PO (10:47)
[2016-04-22] MEDS ORDERED: BUPR-42 PO (10:47)
[2016-04-22] MEDS ORDERED: PREG75CA PO (10:47)
[2016-04-22] MEDS ORDERED: DOCU-143 PO (10:47)
[2016-04-22] MEDS ORDERED: SERT50TA9 PO (10:51)
--- NOTE | 2016-04-22 11:16 | Physical Therapy Daily Note ---
PT Daily Note-Current Subjective Pt. agrees to rx. States he got a good nights sleep last night and feels well today. No c/o pain. Pain Numeric Pain Scale: 0-No Pain Mental Status Patient Orientation: Normal For Age Transfers Functional [place] Measure 0=Not Assessed/NA 4=Minimal Assistance 1=Total Assistance 5=Supervision or Setup 2=Maximal Assistance 6=Modified [place] 3=Moderate Assistance 7=Complete IndependenceIRFPAI Quality Coding Scale 6 Independent with activity with or without an assistive device 5 Patient requires set up or clean up by helper. Patient completes activity by themselves 4 Supervision or touching assist (CGA). [place] provide cues , steadying assist 3 The helper provides less than half the effort to complete the activity 2 The helper provides more than half the effort to complete the activity 1 Dependent. The helper does all the effort to complete an activity 7 Patient refused to complete or attempt activity 9 The patient did not perform the activity before the current illness or injury 88 Not attempted due to Medical conditions or safety concerns Transfers (B, C, W/C) (FIM): 6 Scootin Rollin Roll Left to Right (QC): 6 Supine to/from Sit: 6 Sit to/from Stand: 6 Sit to Lying (QC): 6 Sit to Stand (QC): 6 Chair/Prg-cc-Gpppd Xfer(QC): 6 Bed to/from Chair: 6 Gait Training Does the Patient Walk?: Yes Gait (FIM): 5 Distance (FIM): 3=150 ft (150,100,40) Gait Level of Assist: 5 Gait Persons Needed: 1 Gait Assistive Device: FWW pt. was challenged with fig 8s and side step in narrow area as well as retro gait 10ft. all with good control and no LOB Wheelchair Training Does the Pt Use a Wheelchair?: Yes Wheelchair (FIM): 6 Wheelchair Distance: 3=150 ft (500plus) Wheelchair Level of Assist: 6 Type of Wheelchair: Manual Exercises Standing: Heel/toe raises, 3 way Ex=Flex, Abd, Ext, Marching Standing Reps: 15 NuStep Minutes: 12 NuStep Workload: 2 Assessment Current Status: Good Progress PT Short Term Goals Short Term Goals Time Frame: Apr 21, 2016 Transfers (B,C,W/C) (FIM): 5 (met 04/19/15) Gait (FIM): 2 (met 04/19/15) Distance (FIM): 6=091-47 ft Gait Assistive Device: FWW Wheelchair Distance: 300' PT Residential Goals Residential Goals PT Residential Goals Time Frame: May 05, 2016 Transfers (B,C,W/C) (FIM): 6 Sit to Lying (QC): 6 Lying-Sitting on Side/Bed(QC): 6 Sit to Stand (QC): 6 Rollin Roll Left to Right (QC): 6 Chair/Hss-ki-Xnmkz Xfer(QC): 6 Car Transfer (QC): 6 Does the Patient Walk: Yes Gait (FIM): 5 (household distance) Gait distance (FIM): 9=358-65 ft Distance: 50 ft Walk 10 feet (QC): 6 Walk 10ft-Uneven Surface(QC): 6 Walk 50ft with 2 Turns (QC): 6 Walk 150 ft (QC): 88 Gait Level of Assist: 6 Gait Assistive Device: FWW Does the Pt use WC or Scooter?: Yes Wheelchair (FIM): 6 Wheelchair distance (FIM): 3=150 ft Wheelchair Level of Assist: 6 Wheel 50 feet with 2 turns (QC: 6 Stairs (FIM): 2 # of Steps: 4 1 Step (curb) (QC): 5 4 Steps (QC): 5 12 Steps (QC): 88 Stairs Level Of Assist: 4 (cga) Picking up an Object (QC): 88 (unsafe with BKA) PT Plan Treatment/Plan Treatment Plan: Continue Plan of Care Treatment Plan: Bed Mobility, Education, Functional Activity Lizzy, Functional Strength, Group Therapy, Gait, Safety, Therapeutic Exercise, Transfers Treatment Duration: May 05, 2016 Visits Per Week: 10-15 Minutes/Day (M-F): 60-90 Minutes/Day (Sat/Barrios): prn Safety Risks/Education Patient Education: Gait Training, Transfer Techniques, Issued Written HEP, Correct Positioning, Safety Issues Teaching Recipient: Patient Teaching Methods: Demonstration, Discussion Response to Teaching: Verbalize Understanding, Return Demonstration, Reinforcement Needed Time/GCodes Time In: 1015 Time Out: 1115 Total Billed Treatment Time: 60 Total Billed Treatment 1,GT30m,EX30m G Codes Necessary: WINSTON Givens MANAGER SPANISH Apr 22, 2016 11:16
[2016-04-22] MEDS: ENOXAPARIN 40 MG/0.4 ML (LOVENOX) SYR SC SCH (11:20)
[2016-04-22] MEDS: FUROSEMIDE 40 MG (LASIX) TAB PO SCH (14:01)
--- NOTE | 2016-04-22 14:51 | Therapy Group Daily Note ---
Therapy Daily Group Note Exercises Fine Motor Other/Notes Pt participated socially by introducing self by name, place of and to describe favorite childhood games. Problem solving applied to ask and answer questions to complete cognitive activity. Fine motor activity used to increased dexterity,coordination and strengthening for daily functional tasks. Pt propelled back to room. Call light in reach, all needs met. Start Time: 13:00 Stop Time: 14:00 Total Billed Treatment Time: 60 Total Billed Treatment 1-GRP HERMINIA JANE Apr 22, 2016 14:51
--- NOTE | 2016-04-22 15:33 | Occupational Ther Daily Note ---
OT Current Status-Daily Note Subjective Pt sitting on EOB. Pt stated he had a great night of sleep. Would like a shower. No pain mentioned. Agreeable to OT. Appearance Alert, cooperative Mental Status/Objective Functional [place] Measure 0=Not Assessed/NA 4=Minimal Assistance 1=Total Assistance 5=Supervision or Setup 2=Maximal Assistance 6=Modified [place] 3=Moderate Assistance 7=Complete [place] ADL-Treatment Pt transferred from EOB to w/c, Mod I. Pt toileted by transferring from w/c to toilet using grab bars to lower self, BSC over toilet, Mod I. Managed clothing and hygiene without help. Pt used grab bars to transfer from toilet to w/c, Mod I. Pt retrieved clothes from closet and drawers, without help, w/c level. Pt doffed shirt, pants while sitting on w/c and removed insulin pump. Pt then ambulated to bathroom with FWW, SBA. Pt transferred to transfer tub bench using FWW for balance, SBA. Plastic bag was used to wrap R lower leg. Once in the shower, pt stood to pull down brief and sat back down on tub bench to complete doffing brief, SBA, grab bar for balance. Pt washed and dried all body parts using hand held shower, grab bars,transfer tub bench, setup. Pt used FWW for balance to help pull up brief, alternating hands on walker appropriately for balance. Pt ambulated back to room and sat down on w/c, FWW, SBA. Pt donned shirt, pants, compression sock and shoe, mod I. Pt ambulated back to bathroom to brush teeth, hair, FWW, SBA. Pt ambulated back to room to sit on w/c, FWW, SBA. Pt left sitting in w/c. Call light in reach. All needs met in room. Functional [place] Measure 0=Not Assessed/NA 4=Minimal Assistance 1=Total Assistance 5=Supervision or Setup 2=Maximal Assistance 6=Modified [place] 3=Moderate Assistance 7=Complete IndependenceIRFPAI Quality Coding Scale 6 Independent with activity with or without an assistive device 5 Patient requires set up or clean up by helper. Patient completes activity by themselves 4 Supervision or touching assist (CGA). [place] provide cues , steadying assist 3 The helper provides less than half the effort to complete the activity 2 The helper provides more than half the effort to complete the activity 1 Dependent. The helper does all the effort to complete an activity 7 Patient refused to complete or attempt activity 9 The patient did not perform the activity before the current illness or injury 88 Not attempted due to Medical conditions or safety concerns Grooming (FIM): 5 (SBA) Oral Hygiene (QC): 4 Toileting Hygiene (QC): 6 Bathing (FIM): 5 (setup to wrap leg, otherwise mod I) Bathing Location: L Arm, R Arm, L Upper Leg, R Upper Leg, L Lower Leg ( including foot), R Lower Leg (including foot), Chest, Abdomen, Buttocks, Perineal Area Upper Body (FIM): 6 Upper Body Dressing (QC): 6 Lower Body Dressing (FIM): 6 Lower Body Dressing (QC): 6 On/Off Footwear (QC): 6 Toileting (FIM): 6 Transfers (B, C, W/C) (FIM): 6 Toilet/Commode Transfer (FIM): 6 Toilet Transfer (QC): 6 Tub Transfer(FIM): 5 (SBA) Shower/Bathe Self (QC): 5 Education OT Patient Education: Progress toward Goal/Update tx plan, Purpose of tx/ functional activities, Reviewed precautions, Safety issues (using walker for sanidng ), Transfer techniques Teaching Recipient: Patient Teaching Methods: Discussion Response to Teaching: Verbalize Understanding, Return Demonstration OT Short Term Goals Short Term Goals Time Frame: Apr 21, 2016 Toileting(FIM): 5 Transfers (B,C,W/C) (FIM): 5 (met 04/19/15) Toilet/Commode Transfer(FIM): 5 Shower Transfer(FIM): 5 Additional Short Term Goals: 2-Verbalize Understanding, 3-ImproveStrength/Lizzy 1=Demonstrate adherence to instructed precautions during ADL tasks. 2=Patient will verbalize/demonstrate understanding of assistive devices/ modifications for ADL. 3=Patient will improve strength/tolerance for activity to enable patient to perform ADL's. OT Care Home Goals Student Accounts Manager Goals Time Frame: May 05, 2016 Eating (FIM): 7 Eating (QC): 6 Oral Hygiene (QC): 6 Grooming(FIM): 6 (standing level) Bathing(FIM): 6 Shower/Bathe Self (QC): 6 Upper Body Dressing(FIM): 6 Upper Body Dressing (QC): 6 Lower Body Dressing(FIM): 6 Lower Body Dressing (QC): 6 On/Off Footwear (QC): 6 Toileting(FIM): 6 Toileting Hygiene (QC): 6 Transfers (B,C,W/C) (FIM): 6 Toilet/Commode Transfer(FIM): 6 Toilet/Commode Transfer (QC): 6 Shower Transfer(FIM): 6 Increase bilat UE strength to 5/5 as needed for standing with FWW for ADLs and transfers Additional Goals: 2-Verbalize Understanding, 3-ImproveStrength/Lizzy 1=Demonstrate adherence to instructed precautions during ADL tasks. 2=Patient will verbalize/demonstrate understanding of assistive devices/ modifications for ADL. 3=Patient will improve strength/tolerance for activity to enable patient to perform ADL's. OT Education/Plan Problem List/Assessment Pt would benefit from skilled OT to increase his independence in basic self care so that he can return safely to his apartment, to drive and to go back to work after amputation R LE with resultant weakness, decreased functional mobility, decreased self care, decreased activity tolerance Discharge Recommendations Plan/Recommendations: Continue POC Treatment Plan/Plan of Care Patient would benefit from OT for education, treatment and training to promote independence in ADL's, mobility, safety and/or upper extremity function for ADL' s. Plan of Care: ADL Retraining, Functional Mobility, Group Exercise/Act as Ind ( exercise, education, activity tolerance, functional actiities, socialization), UE Funct Exercise/Act, UE Neuromus Re-Ed/Coord, W/C Management Training Treatment Duration: May 05, 2016 Visits Per Week: 10-11 Minutes/Day (M-F): 75-90 Minutes/Day (Sat/Barrios): PRN Agreement: Yes Rehab Potential: Good Time/GCodes Start Time: 08:30 Stop Time: 09:30 Total Time Billed (hr/min): 60 Billed Treatment Time visit, ADL 60 min NOE VILLEGAS OT Apr 22, 2016 15:33
[2016-04-22] MEDS: FERROUS SULF 325 MG (IRON) TAB PO SCH (16:28)
[2016-04-22 18:55] VITALS: BP 114/59
[2016-04-22] MEDS: ATORVASTATIN 40 MG (LIPITOR) TABLET PO SCH (20:45)
[2016-04-22] MEDS: CALCIUM CARBONATE 600 MG (CALCARB) TAB PO SCH (20:47)
[2016-04-22] MEDS: clonazePAM 1 MG (KlonoPIN) TAB PO SCH (20:49)
[2016-04-23] MEDS: oxyCODONE/APAP 10/325MG (PERCOCET 10) TABLET PO PRN ×5 (01:12→21:20)
[2016-04-23] MEDS: MULTIVIT W/MINERALS TAB (THERAGRAN M) PO SCH (06:02)
[2016-04-23] MEDS: buPROPion SR 100 MG (WELLBUTRIN SR) TAB PO SCH ×2 (06:02→16:43)
[2016-04-23] MEDS: LEVOTHYROXINE 100 MCG (LEVOTHROID) TAB PO SCH (06:02)
[2016-04-23 06:26] VITALS: BP 120/57
[2016-04-23] MEDS: ASPIRIN E.C. 325 MG (ECOTRIN) TABLET PO SCH (08:22)
[2016-04-23] MEDS: PREGABALIN 50 MG (LYRICA) CAP PO SCH ×2 (08:22→20:10)
[2016-04-23] MEDS: SERTRALINE 100 MG (ZOLOFT) TAB PO SCH (08:23)
[2016-04-23] MEDS: DOCUSATE SODIUM 100 MG (COLACE) CAP PO SCH ×2 (08:23→20:11)
[2016-04-23] MEDS: PREGABALIN 100 MG (LYRICA) CAPSULE PO SCH ×2 (08:23→20:10)
[2016-04-23] MEDS: OMEGA 3 (FISH OIL) 1000 MG CAP PO SCH ×4 (08:23→20:10)
[2016-04-23] MEDS: busPIRone 10 MG (BUSPAR) TAB PO SCH ×3 (08:23→20:11)
[2016-04-23] MEDS: clonazePAM 0.5 MG (KlonoPIN) TAB PO SCH (08:23)
--- NOTE | 2016-04-23 09:21 | Physical Therapy Daily Note ---
PT Daily Note-Current Subjective Agreeable to PT. Reports he is going on a pass today. Transfers Functional [place] Measure 0=Not Assessed/NA 4=Minimal Assistance 1=Total Assistance 5=Supervision or Setup 2=Maximal Assistance 6=Modified [place] 3=Moderate Assistance 7=Complete IndependenceIRFPAI Quality Coding Scale 6 Independent with activity with or without an assistive device 5 Patient requires set up or clean up by helper. Patient completes activity by themselves 4 Supervision or touching assist (CGA). [place] provide cues , steadying assist 3 The helper provides less than half the effort to complete the activity 2 The helper provides more than half the effort to complete the activity 1 Dependent. The helper does all the effort to complete an activity 7 Patient refused to complete or attempt activity 9 The patient did not perform the activity before the current illness or injury 88 Not attempted due to Medical conditions or safety concerns Treatments Pt is mod indep with wheelchair mobility. Pt met this therapist in the gym. Nu Step x 15 minutes to facilitate LE strength as well as cardiovascular endurance for functional mobility tolerance and safety at home. Assessment Current Status: Excellent Progress PT Short Term Goals Short Term Goals Time Frame: Apr 21, 2016 Transfers (B,C,W/C) (FIM): 5 (met 04/19/15) Gait (FIM): 2 (met 04/19/15) Distance (FIM): 7=626-36 ft Gait Assistive Device: FWW Wheelchair Distance: 300' PT Retirement Goals Switchboard Mechanic Goals PT Switchboard Mechanic Goals Time Frame: May 05, 2016 Transfers (B,C,W/C) (FIM): 6 Sit to Lying (QC): 6 Lying-Sitting on Side/Bed(QC): 6 Sit to Stand (QC): 6 Rollin Roll Left to Right (QC): 6 Chair/Tjp-lt-Egphg Xfer(QC): 6 Car Transfer (QC): 6 Does the Patient Walk: Yes Gait (FIM): 5 (household distance) Gait distance (FIM): 9=101-28 ft Distance: 50 ft Walk 10 feet (QC): 6 Walk 10ft-Uneven Surface(QC): 6 Walk 50ft with 2 Turns (QC): 6 Walk 150 ft (QC): 88 Gait Level of Assist: 6 Gait Assistive Device: FWW Does the Pt use WC or Scooter?: Yes Wheelchair (FIM): 6 Wheelchair distance (FIM): 3=150 ft Wheelchair Level of Assist: 6 Wheel 50 feet with 2 turns (QC: 6 Stairs (FIM): 2 # of Steps: 4 1 Step (curb) (QC): 5 4 Steps (QC): 5 12 Steps (QC): 88 Stairs Level Of Assist: 4 (cga) Picking up an Object (QC): 88 (unsafe with BKA) PT Plan Problem List Problem List: Activity Tolerance, Functional Strength Treatment/Plan Treatment Plan: Continue Plan of Care Treatment Plan: Bed Mobility, Education, Functional Activity Lizzy, Functional Strength, Group Therapy, Gait, Safety, Therapeutic Exercise, Transfers Treatment Duration: May 05, 2016 Visits Per Week: 10-15 Minutes/Day (M-F): 60-90 Minutes/Day (Sat/Barrios): prn Time/GCodes Time In: 855 Time Out: 910 Total Billed Treatment Time: 15 Total Billed Treatment visit EX 15 HERMINIA WALSH PT Apr 23, 2016 09:21
[2016-04-23] MEDS: ENOXAPARIN 40 MG/0.4 ML (LOVENOX) SYR SC SCH (10:31)
[2016-04-23] MEDS: fentaNYL PATCH 75 MCG (DURAGESIC) TD SCH (16:43)
[2016-04-23] MEDS: FENTANYL PATCH REMOVAL TP SCH (16:43)
[2016-04-23] MEDS: FERROUS SULF 325 MG (IRON) TAB PO SCH (16:43)
[2016-04-23 18:37] VITALS: BP 155/74
[2016-04-23] MEDS: ATORVASTATIN 40 MG (LIPITOR) TABLET PO SCH (20:10)
[2016-04-23] MEDS: FLEET ENEMA ADULT 1 EA BTL PR PRN (20:11)
[2016-04-23] MEDS: clonazePAM 1 MG (KlonoPIN) TAB PO SCH (20:11)
[2016-04-23] MEDS: CALCIUM CARBONATE 600 MG (CALCARB) TAB PO SCH (20:11)
[2016-04-24] MEDS: oxyCODONE/APAP 10/325MG (PERCOCET 10) TABLET PO PRN ×5 (01:05→20:11)
[2016-04-24 04:00] VITALS: BP 130/70
[2016-04-24] MEDS: buPROPion SR 100 MG (WELLBUTRIN SR) TAB PO SCH ×2 (05:11→16:30)
[2016-04-24] MEDS: MULTIVIT W/MINERALS TAB (THERAGRAN M) PO SCH (05:12)
[2016-04-24] MEDS: LEVOTHYROXINE 100 MCG (LEVOTHROID) TAB PO SCH (05:12)
[2016-04-24] MEDS: clonazePAM 0.5 MG (KlonoPIN) TAB PO SCH (08:09)
[2016-04-24] MEDS: OMEGA 3 (FISH OIL) 1000 MG CAP PO SCH ×4 (08:10→20:09)
[2016-04-24] MEDS: DOCUSATE SODIUM 100 MG (COLACE) CAP PO SCH ×2 (08:10→20:09)
[2016-04-24] MEDS: ASPIRIN E.C. 325 MG (ECOTRIN) TABLET PO SCH (08:10)
[2016-04-24] MEDS: SERTRALINE 100 MG (ZOLOFT) TAB PO SCH (08:10)
[2016-04-24] MEDS: busPIRone 10 MG (BUSPAR) TAB PO SCH ×3 (08:10→20:09)
[2016-04-24] MEDS: PREGABALIN 100 MG (LYRICA) CAPSULE PO SCH ×2 (08:10→20:09)
[2016-04-24] MEDS: PREGABALIN 50 MG (LYRICA) CAP PO SCH ×2 (08:11→20:09)
[2016-04-24] MEDS: ENOXAPARIN 40 MG/0.4 ML (LOVENOX) SYR SC SCH (11:48)
[2016-04-24] MEDS: FUROSEMIDE 40 MG (LASIX) TAB PO SCH (14:28)
[2016-04-24] MEDS: FERROUS SULF 325 MG (IRON) TAB PO SCH (16:30)
[2016-04-24 18:11] VITALS: BP 111/61
[2016-04-24] MEDS: clonazePAM 1 MG (KlonoPIN) TAB PO SCH (20:09)
[2016-04-24] MEDS: ATORVASTATIN 40 MG (LIPITOR) TABLET PO SCH (20:09)
[2016-04-24] MEDS: CALCIUM CARBONATE 600 MG (CALCARB) TAB PO SCH (20:09)
[2016-04-25] MEDS: oxyCODONE/APAP 10/325MG (PERCOCET 10) TABLET PO PRN ×5 (00:04→21:06)
[2016-04-25] MEDS: MULTIVIT W/MINERALS TAB (THERAGRAN M) PO SCH (06:11)
[2016-04-25] MEDS: LEVOTHYROXINE 100 MCG (LEVOTHROID) TAB PO SCH (06:11)
[2016-04-25] MEDS: buPROPion SR 100 MG (WELLBUTRIN SR) TAB PO SCH ×2 (06:12→15:53)
[2016-04-25 06:21] VITALS: BP 124/76
[2016-04-25] MEDS: PREGABALIN 50 MG (LYRICA) CAP PO SCH ×2 (08:57→21:01)
[2016-04-25] MEDS: ASPIRIN E.C. 325 MG (ECOTRIN) TABLET PO SCH (08:57)
[2016-04-25] MEDS: clonazePAM 0.5 MG (KlonoPIN) TAB PO SCH (08:57)
[2016-04-25] MEDS: busPIRone 10 MG (BUSPAR) TAB PO SCH ×3 (08:58→21:01)
[2016-04-25] MEDS: DOCUSATE SODIUM 100 MG (COLACE) CAP PO SCH ×2 (08:58→21:01)
[2016-04-25] MEDS: PREGABALIN 100 MG (LYRICA) CAPSULE PO SCH ×2 (08:58→21:01)
[2016-04-25] MEDS: SERTRALINE 100 MG (ZOLOFT) TAB PO SCH (08:58)
[2016-04-25] MEDS: OMEGA 3 (FISH OIL) 1000 MG CAP PO SCH ×4 (08:58→21:01)
--- NOTE | 2016-04-25 09:21 | Occupational Ther Daily Note ---
OT Current Status-Daily Note Subjective Pt sleeping, woke easily to name. Pt agreed to therapy. No c/o pain. Pt did state that he had had a bad night Monday, but slept very well last night. Mental Status/Objective Patient Orientation: Person, Place, Time, Situation Functional [place] Measure 0=Not Assessed/NA 4=Minimal Assistance 1=Total Assistance 5=Supervision or Setup 2=Maximal Assistance 6=Modified [place] 3=Moderate Assistance 7=Complete [place] ADL-Treatment Functional [place] Measure 0=Not Assessed/NA 4=Minimal Assistance 1=Total Assistance 5=Supervision or Setup 2=Maximal Assistance 6=Modified [place] 3=Moderate Assistance 7=Complete IndependenceIRFPAI Quality Coding Scale 6 Independent with activity with or without an assistive device 5 Patient requires set up or clean up by helper. Patient completes activity by themselves 4 Supervision or touching assist (CGA). [place] provide cues , steadying assist 3 The helper provides less than half the effort to complete the activity 2 The helper provides more than half the effort to complete the activity 1 Dependent. The helper does all the effort to complete an activity 7 Patient refused to complete or attempt activity 9 The patient did not perform the activity before the current illness or injury 88 Not attempted due to Medical conditions or safety concerns Eating (FIM): 7 (Pt completes own set up and feeds self with regular utensils.) Eating (QC): 6 (Pt completes own set up and feeds self with regular utensils.) Grooming (FIM): 6 (Sitting in front of sink, pt is able to complete own grooming.) Oral Hygiene (QC): 6 (Sitting at sink, pt is able to complete own oral care.) Toileting Hygiene (QC): 6 (Pt able to complete own toileting with grabbars and BSC.) Bathing (FIM): 6 (Using grabbars, tub transfer bench and hand held shower pt is able to complete own bath.) Bathing Location: L Arm, R Arm, L Upper Leg, R Upper Leg, L Lower Leg ( including foot), R Lower Leg (including foot), Chest, Abdomen, Buttocks, Perineal Area Upper Body (FIM): 6 (Using w/c to retrieve clothing, pt is able to complete own dressing.) Upper Body Dressing (QC): 6 (Using w/c to retrieve clothing, pt is able to complete own dressing.) Lower Body Dressing (FIM): 6 (Using w/c to retrieve clothing, pt is able to complete own dressing.) Lower Body Dressing (QC): 6 (Using w/c to retrieve clothing, pt is able to complete own dressing.) On/Off Footwear (QC): 6 (Using w/c to retrieve footwear, pt is able to complete own dressing.) Toileting (FIM): 6 (Pt able to complete own toileting with grabbars and BSC.) Transfers (B, C, W/C) (FIM): 6 (Going from w/c to a variety of surfaces pt is able to complete transfers.) Toilet/Commode Transfer (FIM): 6 (Using grabbars and BSC pt is able to complete transfers) Toilet Transfer (QC): 6 (Using grabbars and BSC pt is able to complete transfers) Tub Transfer(FIM): 5 (Transferring from w/c to tub transfer bench and back pt is able to complete with minimal prompts on position w/c and self for safe transfer.) Shower Transfer(FIM): 6 (Using shower bench and grabbars, pt is able to complete transfer.) Shower/Bathe Self (QC): 6 (Using tub transfer bench, grabbars and hand held shower pt is able to complete own bath.) Pt sitting in w/c and maneuvering it around ARU independently. All pt's needs met. OT Short Term Goals Short Term Goals Time Frame: Apr 21, 2016 Toileting(FIM): 5 (met-04/25/16) Transfers (B,C,W/C) (FIM): 5 (met 04/19/) Toilet/Commode Transfer(FIM): 5 (met-04/25/16) Shower Transfer(FIM): 5 (met-04/25/16) Additional Short Term Goals: 2-Verbalize Understanding, 3-ImproveStrength/Lizzy 1=Demonstrate adherence to instructed precautions during ADL tasks. 2=Patient will verbalize/demonstrate understanding of assistive devices/ modifications for ADL. 3=Patient will improve strength/tolerance for activity to enable patient to perform ADL's. OT Tempering Oven Operator Goals Detention Goals Time Frame: May 05, 2016 Eating (FIM): 7 (met-04/25/16) Eating (QC): 6 (met-04/25/16) Oral Hygiene (QC): 6 (met-04/25/16) Grooming(FIM): 6 (standing level) Bathing(FIM): 6 (met-04/25/16) Shower/Bathe Self (QC): 6 (met-04/25/16) Upper Body Dressing(FIM): 6 (met04/25/16) Upper Body Dressing (QC): 6 (met04/25/16) Lower Body Dressing(FIM): 6 (met-04/25/16) Lower Body Dressing (QC): 6 (met-04/25/16) On/Off Footwear (QC): 6 (met04/25/16) Toileting(FIM): 6 (met04/25/16) Toileting Hygiene (QC): 6 (met04/25/16) Transfers (B,C,W/C) (FIM): 6 (met04/25/16) Toilet/Commode Transfer(FIM): 6 (met-04/25/16) Toilet/Commode Transfer (QC): 6 (met-04/25/16) Shower Transfer(FIM): 6 (met04/25/16) Increase bilat UE strength to 5/5 as needed for standing with FWW for ADLs and transfers Additional Goals: 2-Verbalize Understanding, 3-ImproveStrength/Lizzy 1=Demonstrate adherence to instructed precautions during ADL tasks. 2=Patient will verbalize/demonstrate understanding of assistive devices/ modifications for ADL. 3=Patient will improve strength/tolerance for activity to enable patient to perform ADL's. OT Education/Plan Problem List/Assessment Pt would benefit from skilled OT to increase his independence in basic self care so that he can return safely to his apartment, to drive and to go back to work after amputation R LE with resultant weakness, decreased functional mobility, decreased self care, decreased activity tolerance Discharge Recommendations Plan/Recommendations: Continue POC Treatment Plan/Plan of Care Patient would benefit from OT for education, treatment and training to promote independence in ADL's, mobility, safety and/or upper extremity function for ADL' s. Plan of Care: ADL Retraining, Functional Mobility, Group Exercise/Act as Ind ( exercise, education, activity tolerance, functional actiities, socialization), UE Funct Exercise/Act, UE Neuromus Re-Ed/Coord, W/C Management Training Treatment Duration: May 05, 2016 Visits Per Week: 10-11 Minutes/Day (M-F): 75-90 Minutes/Day (Sat/Barrios): PRN Agreement: Yes Rehab Potential: Good Time/GCodes Start Time: 07:00 Stop Time: 08:00 Total Time Billed (hr/min): 60 Billed Treatment Time 1 visit-ADL 4 (60 min) HERMINIA JANE Apr 25, 2016 09:21
--- NOTE | 2016-04-25 11:14 | Physical Therapy Daily Note ---
PT Daily Note-Current Subjective Pt. states he is doing well, had some time out of the hospital this weekend with his son. States he visited his apartment and that the railing install etc is coming along well, Pain Numeric Pain Scale: 0-No Pain Mental Status Patient Orientation: Normal For Age Transfers Functional [place] Measure 0=Not Assessed/NA 4=Minimal Assistance 1=Total Assistance 5=Supervision or Setup 2=Maximal Assistance 6=Modified [place] 3=Moderate Assistance 7=Complete IndependenceIRFPAI Quality Coding Scale 6 Independent with activity with or without an assistive device 5 Patient requires set up or clean up by helper. Patient completes activity by themselves 4 Supervision or touching assist (CGA). [place] provide cues , steadying assist 3 The helper provides less than half the effort to complete the activity 2 The helper provides more than half the effort to complete the activity 1 Dependent. The helper does all the effort to complete an activity 7 Patient refused to complete or attempt activity 9 The patient did not perform the activity before the current illness or injury 88 Not attempted due to Medical conditions or safety concerns Transfers (B, C, W/C) (FIM): 6 Scootin Rollin Supine to/from Sit: 6 Sit to/from Stand: 6 Bed to/from Chair: 6 Gait Training Does the Patient Walk?: Yes Gait (FIM): 5 Distance (FIM): 3=150 ft (150,100) Gait Level of Assist: 5 Gait Persons Needed: 1 Gait Assistive Device: FWW pt. does extraordinarily well with gait, no LOB Wheelchair Training Does the Pt Use a Wheelchair?: Yes Wheelchair (FIM): 6 Wheelchair Distance: 3=150 ft (450x2) Wheelchair Level of Assist: 6 Type of Wheelchair: Manual Exercises Supine Ex: Bridging, Ankle pumps, Quad Set, Rolling, Glut sets, Heel Slides, Knee to chest, Short Arc Quads, Scooting, Straight leg raise, Hip abd/add Supine Reps: 20 Standing: Hip Abduction, Hamstring curls, Heel/toe raises, 3 way Ex=Flex, Abd, Ext, Sit to Stand Standing Reps: 12 sidelying hip abduction and prone ham curls and glut sets as well as hip extension x 15 Assessment Current Status: Excellent Progress no pain c/o, safe movement and safe gait, good w/c skills PT Short Term Goals Short Term Goals Time Frame: Apr 21, 2016 Transfers (B,C,W/C) (FIM): 5 (met 04/19/15) Gait (FIM): 2 (met 04/19/15) Distance (FIM): 9=880-49 ft Gait Assistive Device: FWW Wheelchair Distance: 300' PT Fdc Goals Fdc Goals PT Heavy Equipment Rental Associate Goals Time Frame: May 05, 2016 Transfers (B,C,W/C) (FIM): 6 Sit to Lying (QC): 6 Lying-Sitting on Side/Bed(QC): 6 Sit to Stand (QC): 6 Rollin Roll Left to Right (QC): 6 Chair/Rqm-dg-Andtc Xfer(QC): 6 Car Transfer (QC): 6 Does the Patient Walk: Yes Gait (FIM): 5 (household distance) Gait distance (FIM): 7=930-08 ft Distance: 50 ft Walk 10 feet (QC): 6 Walk 10ft-Uneven Surface(QC): 6 Walk 50ft with 2 Turns (QC): 6 Walk 150 ft (QC): 88 Gait Level of Assist: 6 Gait Assistive Device: FWW Does the Pt use WC or Scooter?: Yes Wheelchair (FIM): 6 Wheelchair distance (FIM): 3=150 ft Wheelchair Level of Assist: 6 Wheel 50 feet with 2 turns (QC: 6 Stairs (FIM): 2 # of Steps: 4 1 Step (curb) (QC): 5 4 Steps (QC): 5 12 Steps (QC): 88 Stairs Level Of Assist: 4 (cga) Picking up an Object (QC): 88 (unsafe with BKA) PT Plan Treatment/Plan Treatment Plan: Continue Plan of Care Treatment Plan: Bed Mobility, Education, Functional Activity Lizzy, Functional Strength, Group Therapy, Gait, Safety, Therapeutic Exercise, Transfers Treatment Duration: May 05, 2016 Visits Per Week: 10-15 Minutes/Day (M-F): 60-90 Minutes/Day (Sat/Barrios): prn Safety Risks/Education Patient Education: Gait Training, Transfer Techniques, Correct Positioning, W/ C Management, Disease Process, Safety Issues Teaching Recipient: Patient Teaching Methods: Demonstration, Discussion Response to Teaching: Verbalize Understanding, Return Demonstration, Reinforcement Needed discussed again that hip extension of right limb must be maintained to assist with gait after obtaining prosthesis Time/GCodes Time In: 1015 Time Out: 1115 Total Billed Treatment Time: 60 Total Billed Treatment 1,EX35,FA10, GT15 G Codes Necessary: WNISTON Givens BALLET MASTER/MISTRESS Apr 25, 2016 11:14
[2016-04-25] MEDS: ENOXAPARIN 40 MG/0.4 ML (LOVENOX) SYR SC SCH (11:25)
--- NOTE | 2016-04-25 15:03 | Therapy Group Daily Note ---
Therapy Daily Group Note Patient Education Topic Exercises, Other List Below (education on transfers and equipment) Exercises LE Seated Exercise, UE Exercise Other/Notes Pt propelled self to therapy, without assistance. Pt participated socially by introducing self, currently living and to describe his biggest fear. Pt held a conversation by describing how she would manage her fears. UE/LE seated exercises were completed, education on benefits of LE exercises to decrease blood clots and increase circulation. UE/LE light resistance theraband completed while seated to promote safe transfers. Transfer techniques and equipment used to assist with transfers were discussed and examples were given on how to properly transfer from surface to surface. Pt propelled back to room. Call light in hand. All needs met. Start Time: 13:00 Stop Time: 14:20 Total Billed Treatment Time: 80 Total Billed Treatment 1-HERMINIA ZHOU Apr 25, 2016 15:03
[2016-04-25] MEDS: FERROUS SULF 325 MG (IRON) TAB PO SCH (15:52)
[2016-04-25 18:33] VITALS: BP 116/61
--- NOTE | 2016-04-25 19:12 | PM & R (SOAP) Progress Note ---
Subjective Subjective/Events-last exam Patient was seen in his room this evening.Patient Modifeid Independent for transfers Patient had pass to see his apartment over the weekend and reports Bathroom bars being put in.To see Dr Moreno in f/u on 04/27/16 Objective Exam Last Set of Vital Signs Vital Signs Date Time Temp Pulse Resp B/P Pulse Ox O2 Delivery O2 Flow Rate FiO2 04/25/16 18:33 99.3 51 14 116/61 100 Room Air Capillary Refill : I&O Intake and Output 04/25/16 00:00 Intake Total 2190 ml Balance 2190 ml Intake Oral 2190 ml # Voids 8 # Bowel Movements 1 General: Alert, Oriented X3, Cooperative, No Acute Distress HEENT: Atraumatic, PERRLA, EOMI, Mucous Memb Moist/[place] Neck: Supple, No JVD Lungs: Clear to Auscultation Heart: Regular Rate Abdomen: Normal Bowel Sounds, Soft, No Tenderness Extremities: Other (RT BKA wrapped and trace edema left leg good strength throughout drsssing loose with decreased edema apparently) Results Lab Laboratory Tests 04/22/16 21:00: Glucometer 242H 04/23/16 06:01: Glucometer 137H 04/23/16 11:23: Glucometer 226H 04/23/16 16:17: Glucometer 139H 04/23/16 20:41: Glucometer 211H 04/24/16 06:11: Glucometer 132H 04/24/16 11:52: Glucometer 191H 04/24/16 16:14: Glucometer 133H 04/24/16 20:18: Glucometer 196H 04/25/16 05:49: Glucometer 311H 04/25/16 11:12: Glucometer 117H Assessment/Plan Assessment s/p rt BKA for Charcot foot with instability Type 1 DM has Insulin pump with better control at this point Chronic Neuropathic pain on D Patch and Gabapentin and Lyrica with meds adjusted Depression/Anxiety on meds via [facility] Postop anemia on replacement DVT Prophylaxis on Lovenox SUBCUT Plan Continue PT/OT ST has signed off DR Moreno managing wound care-his butcher assistant has seen patient 04-20-16 Lovenox Sub cut for dvt Prophylaxis Continue replacement for Anemia Ongoing Pain management Hospitalist consulted=Appreciate Dr Carr consult F/U re better Type 1 DM control-done patient manageing himself with Insulin pump with corrections as per sakina Moreno ortho to see in 04-27-16 Team Conference held 04-20-16-See report for full functional update and POC and ELOS Patient doing well with Independent apartment Probable dischage tomorrow or Monday04/27/16 -Will f/u with re details in AM RADHA GUPTA MD Apr 25, 2016 19:12
[2016-04-25] MEDS: ATORVASTATIN 40 MG (LIPITOR) TABLET PO SCH (21:01)
[2016-04-25] MEDS: CALCIUM CARBONATE 600 MG (CALCARB) TAB PO SCH (21:01)
[2016-04-25] MEDS: clonazePAM 1 MG (KlonoPIN) TAB PO SCH (21:01)
[2016-04-26 06:00] VITALS: BP 104/58
[2016-04-26] MEDS: LEVOTHYROXINE 100 MCG (LEVOTHROID) TAB PO SCH (06:10)
[2016-04-26] MEDS: MULTIVIT W/MINERALS TAB (THERAGRAN M) PO SCH (06:10)
[2016-04-26] MEDS: buPROPion SR 100 MG (WELLBUTRIN SR) TAB PO SCH ×2 (06:10→16:35)
[2016-04-26] MEDS: oxyCODONE/APAP 10/325MG (PERCOCET 10) TABLET PO PRN ×4 (06:10→21:06)
[2016-04-26] MEDS: clonazePAM 0.5 MG (KlonoPIN) TAB PO SCH (08:51)
[2016-04-26] MEDS: DOCUSATE SODIUM 100 MG (COLACE) CAP PO SCH ×2 (08:51→21:05)
[2016-04-26] MEDS: busPIRone 10 MG (BUSPAR) TAB PO SCH ×3 (08:51→21:05)
[2016-04-26] MEDS: PREGABALIN 100 MG (LYRICA) CAPSULE PO SCH ×2 (08:52→21:05)
[2016-04-26] MEDS: OMEGA 3 (FISH OIL) 1000 MG CAP PO SCH ×4 (08:52→21:05)
[2016-04-26] MEDS: PREGABALIN 50 MG (LYRICA) CAP PO SCH ×2 (08:52→21:05)
[2016-04-26] MEDS: ASPIRIN E.C. 325 MG (ECOTRIN) TABLET PO SCH (08:52)
[2016-04-26] MEDS: SERTRALINE 100 MG (ZOLOFT) TAB PO SCH (08:53)
[2016-04-26] MEDS: ENOXAPARIN 40 MG/0.4 ML (LOVENOX) SYR SC SCH (11:16)
--- NOTE | 2016-04-26 11:19 | Occupational Ther Daily Note ---
OT Current Status-Daily Note Subjective Pt sitting in w/c. No pain reported. Pt agreeable to OT. Appearance Alert, cooperative Mental Status/Objective Functional [place] Measure 0=Not Assessed/NA 4=Minimal Assistance 1=Total Assistance 5=Supervision or Setup 2=Maximal Assistance 6=Modified [place] 3=Moderate Assistance 7=Complete [place] ADL-Treatment Pt agreed to shower today. Pt was able to retrieve clothing at w/c level then maneuvered w/c into shower to transfer into tub with tub transfer bench by self. Pt then applied plastic bag to R stump for protection. Pt bathed self using bench, hand held shower and grabbars. Then transferred out of tub by self into w/c. Pt maneuvered w/c into room to don clothing by self. Pt remembered to lock breaks on w/c for safety when transferring and standing to hike pants over hips. Pt leaned down to orange picker machine operator shoes and donned socks and shoes by self. At w/c level, pt completed grooming at sink independently. After shower, pt then ambulated with FWW to [facility] kitchen and was able to stand at counter level with FWW and reach into cabinets to retrieve items. Pt was able to open refrigerator and retrieve drink. Pt did have one LOB while moving backward and righted self using FWW. Pt ambulated back to room and sat in w/ c. After therapy, pt maneuvered w/c out of room to sit in [facility] area. Functional [place] Measure 0=Not Assessed/NA 4=Minimal Assistance 1=Total Assistance 5=Supervision or Setup 2=Maximal Assistance 6=Modified [place] 3=Moderate Assistance 7=Complete IndependenceIRFPAI Quality Coding Scale 6 Independent with activity with or without an assistive device 5 Patient requires set up or clean up by helper. Patient completes activity by themselves 4 Supervision or touching assist (CGA). [place] provide cues , steadying assist 3 The helper provides less than half the effort to complete the activity 2 The helper provides more than half the effort to complete the activity 1 Dependent. The helper does all the effort to complete an activity 7 Patient refused to complete or attempt activity 9 The patient did not perform the activity before the current illness or injury 88 Not attempted due to Medical conditions or safety concerns Eating (FIM): 7 Eating (QC): 6 Grooming (FIM): 6 Oral Hygiene (QC): 6 Toileting Hygiene (QC): 6 Bathing (FIM): 6 Bathing Location: L Arm, R Arm, L Upper Leg, R Upper Leg, L Lower Leg ( including foot), R Lower Leg (including foot), Chest, Abdomen, Buttocks, Perineal Area Upper Body (FIM): 6 Upper Body Dressing (QC): 6 Lower Body Dressing (FIM): 6 Lower Body Dressing (QC): 6 On/Off Footwear (QC): 6 Toileting (FIM): 6 Transfers (B, C, W/C) (FIM): 6 Toilet/Commode Transfer (FIM): 6 Toilet Transfer (QC): 6 Tub Transfer(FIM): 6 Shower Transfer(FIM): 6 Shower/Bathe Self (QC): 6 Pt reported that over the weekend he was able to maneuver his w/c in the bathroom. Education OT Patient Education: Progress toward Goal/Update tx plan Teaching Recipient: Patient Response to Teaching: Verbalize Understanding OT Short Term Goals Short Term Goals Time Frame: Apr 21, 2016 Toileting(FIM): 5 (met-04/25/16) Transfers (B,C,W/C) (FIM): 5 (met 04/19/15) Toilet/Commode Transfer(FIM): 5 (met-04/25/16) Shower Transfer(FIM): 5 (met-04/25/16) Additional Short Term Goals: 2-Verbalize Understanding, 3-ImproveStrength/Lizzy 1=Demonstrate adherence to instructed precautions during ADL tasks. 2=Patient will verbalize/demonstrate understanding of assistive devices/ modifications for ADL. 3=Patient will improve strength/tolerance for activity to enable patient to perform ADL's. OT Correction Goals Correction Goals Time Frame: May 05, 2016 Eating (FIM): 7 (met-04/25/16) Eating (QC): 6 (met-04/25/16) Oral Hygiene (QC): 6 (met-04/25/16) Grooming(FIM): 6 (standing level) Bathing(FIM): 6 (met-04/25/16) Shower/Bathe Self (QC): 6 (met-04/25/16) Upper Body Dressing(FIM): 6 (met-04/25/16) Upper Body Dressing (QC): 6 (met-04/25/16) Lower Body Dressing(FIM): 6 (met-04/25/16) Lower Body Dressing (QC): 6 (met-04/25/16) On/Off Footwear (QC): 6 (met-04/25/16) Toileting(FIM): 6 (met-04/25/16) Toileting Hygiene (QC): 6 (met-04/25/16) Transfers (B,C,W/C) (FIM): 6 (met-04/25/16) Toilet/Commode Transfer(FIM): 6 (met-04/25/16) Toilet/Commode Transfer (QC): 6 (met-04/25/16) Shower Transfer(FIM): 6 (met-04/25/16) Increase bilat UE strength to 5/5 as needed for standing with FWW for ADLs and transfers Additional Goals: 2-Verbalize Understanding, 3-ImproveStrength/Lizzy 1=Demonstrate adherence to instructed precautions during ADL tasks. 2=Patient will verbalize/demonstrate understanding of assistive devices/ modifications for ADL. 3=Patient will improve strength/tolerance for activity to enable patient to perform ADL's. OT Education/Plan Problem List/Assessment Pt would benefit from skilled OT to increase his independence in basic self care so that he can return safely to his apartment, to drive and to go back to work after amputation R LE with resultant weakness, decreased functional mobility, decreased self care, decreased activity tolerance Discharge Recommendations Plan/Recommendations: Continue POC Treatment Plan/Plan of Care Patient would benefit from OT for education, treatment and training to promote independence in ADL's, mobility, safety and/or upper extremity function for ADL' s. Plan of Care: ADL Retraining, Functional Mobility, Group Exercise/Act as Ind ( exercise, education, activity tolerance, functional actiities, socialization), UE Funct Exercise/Act, UE Neuromus Re-Ed/Coord, W/C Management Training Treatment Duration: May 05, 2016 Visits Per Week: 10-11 Minutes/Day (M-F): 75-90 Minutes/Day (Sat/Barrios): PRN Agreement: Yes Rehab Potential: Good Time/GCodes Start Time: 09:00 Stop Time: 10:00 Total Time Billed (hr/min): 60 Billed Treatment Time visit, ADL 60 HERMINIA JANE Apr 26, 2016 11:19
--- NOTE | 2016-04-26 11:51 | Physical Therapy Daily Note ---
PT Daily Note-Current Subjective Pt. agrees to Rx. Feels confident he can manage at home with the help he has in place. Pain Numeric Pain Scale: 0-No Pain Mental Status Patient Orientation: Normal For Age Attachments: Other-See Comments pt. with insulin pump he manages indep Transfers Functional [place] Measure 0=Not Assessed/NA 4=Minimal Assistance 1=Total Assistance 5=Supervision or Setup 2=Maximal Assistance 6=Modified [place] 3=Moderate Assistance 7=Complete IndependenceIRFPAI Quality Coding Scale 6 Independent with activity with or without an assistive device 5 Patient requires set up or clean up by helper. Patient completes activity by themselves 4 Supervision or touching assist (CGA). [place] provide cues , steadying assist 3 The helper provides less than half the effort to complete the activity 2 The helper provides more than half the effort to complete the activity 1 Dependent. The helper does all the effort to complete an activity 7 Patient refused to complete or attempt activity 9 The patient did not perform the activity before the current illness or injury 88 Not attempted due to Medical conditions or safety concerns Transfers (B, C, W/C) (FIM): 6 Scootin Rollin Roll Left to Right (QC): 6 Supine to/from Sit: 7 Sit to/from Stand: 6 Sit to Lying (QC): 6 Sit to Stand (QC): 6 Chair/Scy-dc-Hnoxn Xfer(QC): 6 Bed to/from Chair: 6 Gait Training Does the Patient Walk?: Yes Gait (FIM): 4 Distance (FIM): 3=150 ft (150,200) Walk 10 feet (QC): 4 Walk 50 ft with 2 Turns(QC): 4 Walk 150 ft (QC): 4 Walking 10ft/uneven surface-QC: 4 Gait Level of Assist: 5 Gait Persons Needed: 1 Gait Assistive Device: FWW gait up down ramp 75 ft x 2 SBA Wheelchair Training Does the Pt Use a Wheelchair?: Yes Wheelchair (FIM): 6 Wheelchair Distance: 3=150 ft (400-500) Wheelchair Level of Assist: 6 Wheel 50 ft with 2 turns (QC): 6 Wheel 150 ft (QC): 6 Type of Wheelchair: Manual ramps up and down with good control 75ft Exercises Supine Ex: Bridging, Ankle pumps, Quad Set, Rolling, Glut sets, Heel Slides, Short Arc Quads, Scooting, Straight leg raise, Hip abd/add Supine Reps: 15 prone and sidelying exercises all x 15 reps Assessment Current Status: Excellent Progress PT Short Term Goals Short Term Goals Time Frame: Apr 21, 2016 Transfers (B,C,W/C) (FIM): 5 (met 04/19/15) Gait (FIM): 2 (met 04/19/15) Distance (FIM): 0=387-13 ft Gait Assistive Device: FWW Wheelchair Distance: 300' PT Intermediate Goals Construction Field Engineer Goals PT Construction Field Engineer Goals Time Frame: May 05, 2016 Transfers (B,C,W/C) (FIM): 6 Sit to Lying (QC): 6 Lying-Sitting on Side/Bed(QC): 6 Sit to Stand (QC): 6 Rollin Roll Left to Right (QC): 6 Chair/Llv-og-Cwwoi Xfer(QC): 6 Car Transfer (QC): 6 Does the Patient Walk: Yes Gait (FIM): 5 (household distance) Gait distance (FIM): 6=840-36 ft Distance: 50 ft Walk 10 feet (QC): 6 Walk 10ft-Uneven Surface(QC): 6 Walk 50ft with 2 Turns (QC): 6 Walk 150 ft (QC): 88 Gait Level of Assist: 6 Gait Assistive Device: FWW Does the Pt use WC or Scooter?: Yes Wheelchair (FIM): 6 Wheelchair distance (FIM): 3=150 ft Wheelchair Level of Assist: 6 Wheel 50 feet with 2 turns (QC: 6 Stairs (FIM): 2 # of Steps: 4 1 Step (curb) (QC): 5 4 Steps (QC): 5 12 Steps (QC): 88 Stairs Level Of Assist: 4 (cga) Picking up an Object (QC): 88 (unsafe with BKA) PT Plan Treatment/Plan Treatment Plan: Continue Plan of Care Treatment Plan: Bed Mobility, Education, Functional Activity Lizzy, Functional Strength, Group Therapy, Gait, Safety, Therapeutic Exercise, Transfers Treatment Duration: May 05, 2016 Visits Per Week: 10-15 Minutes/Day (M-F): 60-90 Minutes/Day (Sat/Barrios): prn Safety Risks/Education Patient Education: Gait Training, Transfer Techniques, Correct Positioning, W/ C Management, Disease Process, Safety Issues Teaching Recipient: Patient Teaching Methods: Demonstration, Discussion Response to Teaching: Verbalize Understanding, Return Demonstration, Reinforcement Needed Time/GCodes Time In: 1055 Time Out: 1155 Total Billed Treatment Time: 60 Total Billed Treatment 1,wch20m,GT15m,EX25m G Codes Necessary: [place] Givens GROCERY ASSOCIATE Apr 26, 2016 11:51
--- NOTE | 2016-04-26 13:32 | Physical Therapy Daily Note ---
PT Daily Note-Current Subjective Agreeable top Rx. no pain c/o Pain Numeric Pain Scale: 0-No Pain Mental Status Patient Orientation: Normal For Age Transfers Functional Butts Measure 0=Not Assessed/NA 4=Minimal Assistance 1=Total Assistance 5=Supervision or Setup 2=Maximal Assistance 6=Modified Butts 3=Moderate Assistance 7=Complete IndependenceIRFPAI Quality Coding Scale 6 Independent with activity with or without an assistive device 5 Patient requires set up or clean up by helper. Patient completes activity by themselves 4 Supervision or touching assist (CGA). [place] provide cues , steadying assist 3 The helper provides less than half the effort to complete the activity 2 The helper provides more than half the effort to complete the activity 1 Dependent. The helper does all the effort to complete an activity 7 Patient refused to complete or attempt activity 9 The patient did not perform the activity before the current illness or injury 88 Not attempted due to Medical conditions or safety concerns all TRFs Mod I Gait Training Gait Assistive Device: FWW 165ft,60ft, SBA Wheelchair Training Type of Wheelchair: Manual fig 8s forward and back all Mod I Exercises Standing: Hamstring curls, Heel/toe raises, 3 way Ex=Flex, Abd, Ext, Mini squats Standing Reps: 15 NuStep Minutes: 11 NuStep Workload: 5 Assessment Current Status: Good Progress meets goals PT Short Term Goals Short Term Goals Time Frame: Apr 21, 2016 Transfers (B,C,W/C) (FIM): 5 (met 04/19/15) Gait (FIM): 2 (met 04/19/15) Distance (FIM): 6=573-38 ft Gait Assistive Device: FWW Wheelchair Distance: 300' PT Prison Goals Prison Goals PT Photolithographer Goals Time Frame: May 05, 2016 Transfers (B,C,W/C) (FIM): 6 Sit to Lying (QC): 6 Lying-Sitting on Side/Bed(QC): 6 Sit to Stand (QC): 6 Rollin Roll Left to Right (QC): 6 Chair/Tal-be-Xbsht Xfer(QC): 6 Car Transfer (QC): 6 Does the Patient Walk: Yes Gait (FIM): 5 (household distance) Gait distance (FIM): 9=782-94 ft Distance: 50 ft Walk 10 feet (QC): 6 Walk 10ft-Uneven Surface(QC): 6 Walk 50ft with 2 Turns (QC): 6 Walk 150 ft (QC): 88 Gait Level of Assist: 6 Gait Assistive Device: FWW Does the Pt use WC or Scooter?: Yes Wheelchair (FIM): 6 Wheelchair distance (FIM): 3=150 ft Wheelchair Level of Assist: 6 Wheel 50 feet with 2 turns (QC: 6 Stairs (FIM): 2 # of Steps: 4 1 Step (curb) (QC): 5 4 Steps (QC): 5 12 Steps (QC): 88 Stairs Level Of Assist: 4 (cga) Picking up an Object (QC): 88 (unsafe with BKA) PT Plan Treatment/Plan Treatment Plan: Continue Plan of Care Treatment Plan: Bed Mobility, Education, Functional Activity Lizzy, Functional Strength, Group Therapy, Gait, Safety, Therapeutic Exercise, Transfers Treatment Duration: May 05, 2016 Visits Per Week: 10-15 Minutes/Day (M-F): 60-90 Minutes/Day (Sat/Barrios): prn Safety Risks/Education Patient Education: Gait Training, Transfer Techniques, W/C Management Teaching Recipient: Patient Teaching Methods: Discussion Response to Teaching: Verbalize Understanding Time/GCodes Time In: 1300 Time Out: 1330 Total Billed Treatment Time: 30 Total Billed Treatment 1,GT15,EX15m G Codes Necessary: WINSTON Givens COOKY MACHINE OPERATOR Apr 26, 2016 13:32
--- NOTE | 2016-04-26 15:18 | Occupational Ther Daily Note ---
OT Current Status-Daily Note Subjective Pt sitting in w/c. Pt spoke about going home and the important things he has to do. Agreeable to OT. Mental Status/Objective Functional [place] Measure 0=Not Assessed/NA 4=Minimal Assistance 1=Total Assistance 5=Supervision or Setup 2=Maximal Assistance 6=Modified [place] 3=Moderate Assistance 7=Complete Coal ADL-Treatment Functional Coal Measure 0=Not Assessed/NA 4=Minimal Assistance 1=Total Assistance 5=Supervision or Setup 2=Maximal Assistance 6=Modified [place] 3=Moderate Assistance 7=Complete IndependenceIRFPAI Quality Coding Scale 6 Independent with activity with or without an assistive device 5 Patient requires set up or clean up by helper. Patient completes activity by themselves 4 Supervision or touching assist (CGA). [place] provide cues , steadying assist 3 The helper provides less than half the effort to complete the activity 2 The helper provides more than half the effort to complete the activity 1 Dependent. The helper does all the effort to complete an activity 7 Patient refused to complete or attempt activity 9 The patient did not perform the activity before the current illness or injury 88 Not attempted due to Medical conditions or safety concerns Other Treatment Pt propelled self to gym. Pt used arm bike for strengthening 15 min 20 reyes. Pt propelled back to room. Pt left sitting in w/c. Call light in hand. All needs met. Education OT Patient Education: Progress toward Goal/Update tx plan, Purpose of tx/ functional activities Teaching Recipient: Patient Teaching Methods: Demonstration, Discussion Response to Teaching: Verbalize Understanding, Return Demonstration OT Short Term Goals Short Term Goals Time Frame: Apr 21, 2016 Toileting(FIM): 5 (met-04/25/16) Transfers (B,C,W/C) (FIM): 5 (met 04/19/) Toilet/Commode Transfer(FIM): 5 (met-04/25/16) Shower Transfer(FIM): 5 (met-04/25/16) Additional Short Term Goals: 2-Verbalize Understanding, 3-ImproveStrength/Lizzy 1=Demonstrate adherence to instructed precautions during ADL tasks. 2=Patient will verbalize/demonstrate understanding of assistive devices/ modifications for ADL. 3=Patient will improve strength/tolerance for activity to enable patient to perform ADL's. OT Senior Living Goals Senior Living Goals Time Frame: May 05, 2016 Eating (FIM): 7 (met-04/25/16) Eating (QC): 6 (met-04/25/16) Oral Hygiene (QC): 6 (met-04/25/16) Grooming(FIM): 6 (standing level) Bathing(FIM): 6 (met-04/25/16) Shower/Bathe Self (QC): 6 (met-04/25/16) Upper Body Dressing(FIM): 6 (met-04/25/16) Upper Body Dressing (QC): 6 (met-04/25/16) Lower Body Dressing(FIM): 6 (met-04/25/16) Lower Body Dressing (QC): 6 (met-04/25/16) On/Off Footwear (QC): 6 (met04/25/16) Toileting(FIM): 6 (met04/25/16) Toileting Hygiene (QC): 6 (met04/25/16) Transfers (B,C,W/C) (FIM): 6 (met04/25/16) Toilet/Commode Transfer(FIM): 6 (met-04/25/16) Toilet/Commode Transfer (QC): 6 (met04/25/16) Shower Transfer(FIM): 6 (met04/25/16) Increase bilat UE strength to 5/5 as needed for standing with FWW for ADLs and transfers Additional Goals: 2-Verbalize Understanding, 3-ImproveStrength/Lizzy 1=Demonstrate adherence to instructed precautions during ADL tasks. 2=Patient will verbalize/demonstrate understanding of assistive devices/ modifications for ADL. 3=Patient will improve strength/tolerance for activity to enable patient to perform ADL's. OT Education/Plan Problem List/Assessment Pt would benefit from skilled OT to increase his independence in basic self care so that he can return safely to his apartment, to drive and to go back to work after amputation R LE with resultant weakness, decreased functional mobility, decreased self care, decreased activity tolerance Discharge Recommendations Plan/Recommendations: Continue POC Treatment Plan/Plan of Care Patient would benefit from OT for education, treatment and training to promote independence in ADL's, mobility, safety and/or upper extremity function for ADL' s. Plan of Care: ADL Retraining, Functional Mobility, Group Exercise/Act as Ind ( exercise, education, activity tolerance, functional actiities, socialization), UE Funct Exercise/Act, UE Neuromus Re-Ed/Coord, W/C Management Training Treatment Duration: May 05, 2016 Visits Per Week: 10-11 Minutes/Day (M-F): 75-90 Minutes/Day (Sat/Barrios): PRN Agreement: Yes Rehab Potential: Good Time/GCodes Start Time: 14:00 Stop Time: 14:30 Total Time Billed (hr/min): 30 Billed Treatment Time visit, EX 30 min HERMINIA JANE Apr 26, 2016 15:18
[2016-04-26] MEDS: FUROSEMIDE 40 MG (LASIX) TAB PO SCH (15:35)
[2016-04-26] MEDS: fentaNYL PATCH 75 MCG (DURAGESIC) TD SCH (16:35)
[2016-04-26] MEDS: FENTANYL PATCH REMOVAL TP SCH (16:35)
[2016-04-26] MEDS: FERROUS SULF 325 MG (IRON) TAB PO SCH (16:35)
[2016-04-26 18:19] VITALS: BP 110/64
--- NOTE | 2016-04-26 18:54 | PM & R (SOAP) Progress Note ---
Subjective Subjective/Events-last exam Patient was seen in his room this AM Progressing well with therapies Patient SBA for Gait with walker and Independent for w/c propulsion.Accuchecks reveal good control of DM with Insulin Pump Objective Exam Last Set of Vital Signs Vital Signs Date Time Temp Pulse Resp B/P Pulse Ox O2 Delivery O2 Flow Rate FiO2 04/26/16 18:19 96.0 50 16 110/64 100 04/26/16 09:04 Room Air Capillary Refill : I&O Intake and Output 04/26/16 00:00 Intake Total 1710 ml Balance 1710 ml Intake Oral 1710 ml # Voids 9 General: Alert, Oriented X3, Cooperative, No Acute Distress HEENT: Atraumatic, PERRLA, EOMI, Mucous Memb Moist/[place]ck: Supple, No JVD Lungs: Clear to Auscultation Heart: Regular Rate Abdomen: Normal Bowel Sounds, Soft, No Tenderness Extremities: Other (RT BKA wrapped and trace edema left leg good strength throughout drsssing loose with decreased edema apparently) Results Lab Laboratory Tests 04/23/16 20:41: Glucometer 211H 04/24/16 06:11: Glucometer 132H 04/24/16 11:52: Glucometer 191H 04/24/16 16:14: Glucometer 133H 04/24/16 20:18: Glucometer 196H 04/25/16 05:49: Glucometer 311H 04/25/16 11:12: Glucometer 117H 04/26/16 11:09: Glucometer 181H 04/26/16 16:03: Glucometer 120H Assessment/Plan Assessment s/p rt BKA for Charcot foot with instability Type 1 DM has Insulin pump with better control at this point Chronic Neuropathic pain on D Patch and Gabapentin and Lyrica with meds adjusted Depression/Anxiety on meds via [facility] Postop anemia on replacement DVT Prophylaxis on Lovenox SUBCUT Plan Continue PT/OT ST has signed off DR Moreno managing wound care-his psychologist research assistant has seen patient 04-20-16 Lovenox Sub cut for dvt Prophylaxis Continue replacement for Anemia Ongoing Pain management Hospitalist consulted=Appreciate Dr Carr consult F/U re better Type 1 DM control-done patient manageing himself with Insulin pump with corrections as per patient done much improved DR Moreno ortho to see tomorrow 04-27-16 Patient doing well in Independent apartment setting Discharge set for tomorrow to home RADHA GUPTA MD Apr 26, 2016 18:54
[2016-04-26] MEDS: FLEET ENEMA ADULT 1 EA BTL PR PRN (20:15)
[2016-04-26] MEDS: CALCIUM CARBONATE 600 MG (CALCARB) TAB PO SCH (21:05)
[2016-04-26] MEDS: clonazePAM 1 MG (KlonoPIN) TAB PO SCH (21:05)
[2016-04-26] MEDS: ATORVASTATIN 40 MG (LIPITOR) TABLET PO SCH (21:05)
[2016-04-27 06:00] VITALS: BP 110/50
[2016-04-27] MEDS: oxyCODONE/APAP 10/325MG (PERCOCET 10) TABLET PO PRN ×2 (06:21→12:55)
[2016-04-27] MEDS: buPROPion SR 100 MG (WELLBUTRIN SR) TAB PO SCH ×2 (06:21→17:34)
[2016-04-27] MEDS: LEVOTHYROXINE 100 MCG (LEVOTHROID) TAB PO SCH (06:21)
[2016-04-27] MEDS: MULTIVIT W/MINERALS TAB (THERAGRAN M) PO SCH (06:21)
--- NOTE | 2016-04-27 08:45 | PM & R (SOAP) Progress Note ---
Subjective Subjective/Events-last exam Patient was seen on unit this AM RX for DME W/C provided Has progressed well.To see Dr Moreno 1000 am today Objective Exam Last Set of Vital Signs Vital Signs Date Time Temp Pulse Resp B/P Pulse Ox O2 Delivery O2 Flow Rate FiO2 04/27/16 06:00 97.9 52 22 110/50 99 Room Air Capillary Refill : I&O Intake and Output 04/27/16 00:00 Intake Total 1090 ml Balance 1090 ml Intake Oral 1090 ml # Voids 5 General: Alert, Oriented X3, Cooperative, No Acute Distress HEENT: Atraumatic, PERRLA, EOMI, Mucous Memb Moist/[place] Neck: Supple, No JVD Lungs: Clear to Auscultation Heart: Regular Rate Abdomen: Normal Bowel Sounds, Soft, No Tenderness Extremities: Other (RT BKA wrapped and trace edema left leg good strength throughout drsssing loose with decreased edema apparently) Results Lab Laboratory Tests 04/24/16 11:52: Glucometer 191H 04/24/16 16:14: Glucometer 133H 04/24/16 20:18: Glucometer 196H 04/25/16 05:49: Glucometer 311H 04/25/16 11:12: Glucometer 117H 04/26/16 11:09: Glucometer 181H 04/26/16 16:03: Glucometer 120H 04/26/16 20:23: Glucometer 230H 04/27/16 05:45: Glucometer 143H Assessment/Plan Assessment s/p rt BKA for Charcot foot with instability Type 1 DM has Insulin pump with better control at this point Chronic Neuropathic pain on D Patch and Gabapentin and Lyrica with meds adjusted Depression/Anxiety on meds via [facility] Postop anemia on replacement DVT Prophylaxis on Lovenox SUBCUT Plan Discharge today to home with [facility] F/U with DR Fuller PCP and DR Moreno Ortho See orders. RADHA GUPTA MD Apr 27, 2016 08:45
[2016-04-27] MEDS: PREGABALIN 50 MG (LYRICA) CAP PO SCH (09:16)
[2016-04-27] MEDS: DOCUSATE SODIUM 100 MG (COLACE) CAP PO SCH (09:16)
[2016-04-27] MEDS: PREGABALIN 100 MG (LYRICA) CAPSULE PO SCH (09:16)
[2016-04-27] MEDS: SERTRALINE 100 MG (ZOLOFT) TAB PO SCH (09:16)
[2016-04-27] MEDS: busPIRone 10 MG (BUSPAR) TAB PO SCH ×2 (09:17→12:54)
[2016-04-27] MEDS: OMEGA 3 (FISH OIL) 1000 MG CAP PO SCH ×3 (09:17→17:34)
[2016-04-27] MEDS: clonazePAM 0.5 MG (KlonoPIN) TAB PO SCH (09:17)
[2016-04-27] MEDS: ASPIRIN E.C. 325 MG (ECOTRIN) TABLET PO SCH (09:17)
--- NOTE | 2016-04-27 10:43 | Therapy Team Discharge Summary ---
Therapy Discharge Summary Discharge Recommendations Date of Discharge Therapy D/C Recommendations: Physical Therapy Home Care Physical Therapy Patient came to rehab following a right BKA. Upon admission, patient performed bed mobility with SBA and transfers with CGA, ambulated 50' with a rolling walker with CGA, propelled a wheelchair 150' with SBA, and could go up and down 1 step using a rolling walker with CGA. Patient has been performing bed mobility and transfer training, balance and endurance training, functional strengthening, stair training, ROM/stretching, gait training, and education. Patient has made fair progress but has not met his pen[facility]entiary goals for ambulation or stairs. Now, patient performs bed mobility with independence and transfers with mod I, ambulates 200' with a rolling walker with SBA (including 10' over an uneven surface like carpet and 50' with at least 2 turns of 90 degrees), and can propel a wheelchair over 500' with mod I. Patient is being discharged from this facility today and will be discharged from PT at this time. PT Yarding And Folding Machine Operator Goals Yarding And Folding Machine Operator Goals PT Yarding And Folding Machine Operator Goals Time Frame: May 05, 2016 Transfers (B,C,W/C) (FIM): 6 Roll Left to Right (QC): 6 Sit to Lying (QC): 6 Lying-Sitting on Side/Bed(QC): 6 Sit to Stand (QC): 6 Chair/Foe-mw-Qocjr Xfer(QC): 6 Car Transfer (QC): 6 Does the Patient Walk: Yes Gait (FIM): 5 (household distance) Gait distance (FIM): 7=316-64 ft Distance: 50 ft Walk 10 feet (QC): 6 Walk 10ft-Uneven Surface(QC): 6 Walk 50ft with 2 Turns (QC): 6 Walk 150 ft (QC): 88 Gait Level of Assist: 6 Gait Assistive Device: FWW Does the Pt use WC or Scooter?: Yes Wheelchair (FIM): 6 Wheelchair distance (FIM): 3=150 ft Wheelchair Level of Assist: 6 Wheel 50 feet with 2 turns (QC: 6 Stairs (FIM): 2 # of Steps: 4 1 Step (curb) (QC): 5 4 Steps (QC): 5 12 Steps (QC): 88 Stairs Level Of Assist: 4 (cga) Picking up an Object (QC): 88 (unsafe with BKA) OT [facility] Goals [facility] Goals Time Frame: May 05, 2016 Eating (FIM): 7 (-04/25/16) Eating (QC): 6 (-04/25/16) Oral Hygiene (QC): 6 (-04/25/16) Grooming(FIM): 6 (standing level) Bathing(FIM): 6 (met-04/25/16) Shower/Bathe Self (QC): 6 (-04/25/16) Upper Body Dressing(FIM): 6 (-04/25/16) Upper Body Dressing (QC): 6 (-04/25/16) Lower Body Dressing(FIM): 6 (-04/25/16) Lower Body Dressing (QC): 6 (04/25/16) On/Off Footwear (QC): 6 (04/25/16) Toileting(FIM): 6 (-04/25/16) Toileting Hygiene (QC): 6 (04/25/16) Transfers (B,C,W/C) (FIM): 6 (met-04/25/16) Toilet/Commode Transfer(FIM): 6 (met-04/25/16) Toilet/Commode Transfer (QC): 6 (04/25/16) Shower Transfer(FIM): 6 (04/25/16) Increase bilat UE strength to 5/5 as needed for standing with FWW for ADLs and transfers Additional Goals: 2-Verbalize Understanding, 3-ImproveStrength/Lizzy 1=Demonstrate adherence to instructed precautions during ADL tasks. 2=Patient will verbalize/demonstrate understanding of assistive devices/ modifications for ADL. 3=Patient will improve strength/tolerance for activity to enable patient to perform ADL's. RUBY BERNAL PT Apr 27, 2016 10:43
[2016-04-27] MEDS: ENOXAPARIN 40 MG/0.4 ML (LOVENOX) SYR SC SCH (11:35)
--- NOTE | 2016-04-27 12:56 | Therapy Team Discharge Summary ---
Therapy Discharge Summary Discharge Recommendations Date of Discharge Therapy D/C Recommendations: Physical Therapy Home Care Occupational Therapy Pt admitted to ARU following right BKA. On admission pt required close CGA for LE ADLs and transfers. Skilled OT intervention focused on ADL training, transfers, strengthening, and home safety education. Pt made good progress with therapy and by discharge is completing ADLs and transfers with modified independence. Pt met all OT LTG. Plan is for pt to d/c home this date. D/C ARU OT at this time. PT Stallion Manager Goals Stallion Manager Goals PT Stallion Manager Goals Time Frame: May 05, 2016 Transfers (B,C,W/C) (FIM): 6 Roll Left to Right (QC): 6 Sit to Lying (QC): 6 Lying-Sitting on Side/Bed(QC): 6 Sit to Stand (QC): 6 Chair/Hfv-lq-Cieuu Xfer(QC): 6 Car Transfer (QC): 6 Does the Patient Walk: Yes Gait (FIM): 5 (household distance) Gait distance (FIM): 1=525-47 ft Distance: 50 ft Walk 10 feet (QC): 6 Walk 10ft-Uneven Surface(QC): 6 Walk 50ft with 2 Turns (QC): 6 Walk 150 ft (QC): 88 Gait Level of Assist: 6 Gait Assistive Device: FWW Does the Pt use WC or Scooter?: Yes Wheelchair (FIM): 6 Wheelchair distance (FIM): 3=150 ft Wheelchair Level of Assist: 6 Wheel 50 feet with 2 turns (QC: 6 Stairs (FIM): 2 # of Steps: 4 1 Step (curb) (QC): 5 4 Steps (QC): 5 12 Steps (QC): 88 Stairs Level Of Assist: 4 (cga) Picking up an Object (QC): 88 (unsafe with BKA) OT Alf Goals Alf Goals Time Frame: May 05, 2016 Eating (FIM): 7 (met-04/25/16) Eating (QC): 6 (met-04/25/16) Oral Hygiene (QC): 6 (met-04/25/16) Grooming(FIM): 6 (standing level) Bathing(FIM): 6 (met-04/25/16) Shower/Bathe Self (QC): 6 (met-04/25/16) Upper Body Dressing(FIM): 6 (met-04/25/16) Upper Body Dressing (QC): 6 (met-04/25/16) Lower Body Dressing(FIM): 6 (met-04/25/16) Lower Body Dressing (QC): 6 (met-04/25/16) On/Off Footwear (QC): 6 (met-04/25/16) Toileting(FIM): 6 (met-04/25/16) Toileting Hygiene (QC): 6 (met-04/25/16) Transfers (B,C,W/C) (FIM): 6 (met-04/25/16) Toilet/Commode Transfer(FIM): 6 (met-04/25/16) Toilet/Commode Transfer (QC): 6 (met-04/25/16) Shower Transfer(FIM): 6 (met-04/25/16) Increase bilat UE strength to 5/5 as needed for standing with FWW for ADLs and transfers Additional Goals: 2-Verbalize Understanding, 3-ImproveStrength/Lizzy 1=Demonstrate adherence to instructed precautions during ADL tasks. 2=Patient will verbalize/demonstrate understanding of assistive devices/ modifications for ADL. 3=Patient will improve strength/tolerance for activity to enable patient to perform ADL's. STEPHANI HITCHCOCK OT Apr 27, 2016 12:56
[2016-04-27] MEDS: FERROUS SULF 325 MG (IRON) TAB PO SCH (17:34)
[2016-04-27 17:58] VITALS: BP 122/65
--- NOTE | 2016-05-11 14:31 | DISCHARGE SUMMARY ---
DATE OF ADMISSION: 04/14/2016 DATE OF DISCHARGE: 04/27/2016 HISTORY OF PRESENT ILLNESS: The patient is a 61-year-old male with type 1 diabetes mellitus managed with an insulin pump with severe diabetic peripheral neuropathy which he takes Duragesic patch at home prescribed through his PCP Dr. Kapoor, as well as gabapentin and Lyrica. He is also on psychotropic medications as prescribed through [facility] for treatment of anxiety. 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 He developed Charcot joint in the right ankle with instability followed by Dr. Moreno on an outpatient basis. He went on to have this right BKA due to severe Charcot joint of the right ankle with severe instability ankle with it being nonfunctional for weight-bearing. He reports that his left leg is okay but he has severe peripheral neuropathy with decreased sensation in that as well. He underwent a right BKA at [facility] and is referred to Inpatient Rehabilitation Unit at [facility] for ongoing amputee rehabilitation. He lives alone in [place] in a wheelchair accessible apartment. He has a supportive family nearby. He had been modified independent with a Knee scooter prior to this. PAST MEDICAL HISTORY: 1. Type 1 diabetes mellitus with insulin of [employer]. 2. Coronary artery disease. 3. Diabetic peripheral neuropathy. 4. Chronic neuropathic pain. 5. Hypertension. 6. NV. 7. Peripheral vascular disease. 8. Hypercholesteremia. 9. Anxiety. 10. Depression. 11. DVT. 12. Renal insufficiency. 13. Anemia. 14. 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 15. Recent right BKA as per above. MEDICAL COURSE: The patient's glucometer readings were quite elevated initially but the patient was managing his diabetes through his insulin pump, and he brought it under good control prior to discharge. Pain management was down with adequate pain control. He was followed by Dr. May and Dr. Moreno and hospitalist service while on rehab unit. He was afebrile during his stay CBC on 04/15 showed WBC 5.2, H&H 9.8/28, platelet count 131,000. Chemistry 04/14 and 04/15 was within normal limits other than chloride 96, glucose of 363, total protein 5.2 and albumin 3.1. Accu-Cheks were 04/26 to 04/27 varied between [address] Moreno was following, wound care and he reports that the patient is doing well with incision healing well on residual limb. REHABILITATION COURSE: He progressed well with his therapies. He had increased strength and endurance, good shaping of his residual limb, good pain management. Good control his diabetes. His mood and affect were good. PT notes that upon admission, the patient performed bed mobility with standby assist and transfers, contact guard assist. He could ambulate 50 feet with a walker with contact guard, propel the wheelchair 150 feet with standby assist and go up and down one step using rolling walker with contact guard assist. Upon discharge he is independent for bed mobility, modified independent for transfers, could ambulate 200 feet with a wheeled walker with standby assist and could propel the wheelchair over 500 feet, modified independent. Prescription for DME, wheelchair was provided for him. The patient is modified independent with car transfers as well. His farm agent arranged for his bathroom to be made more handicapped accessible bars. He has a first floor apartment. OT notes that upon admission, the patient required close contact guard for lower body ADLs and transfers. The patient made good progress and by discharge was completing ADLs, transfers with modified independence. DISCHARGE INSTRUCTIONS: Continue current diet and insulin pump management as per patient with glucometer readings q.i.d. before meals and at bedtime. Continue current diet. Follow-up with home health care and Dr. Kapoor and Dr. Moreno. DISCHARGE MEDICATIONS: 1. ASA 325 mg p.o. daily. 2. Lipitor 40 mg p.o. at bedtime. 3. Med 300 ng p.o. daily. 4. Wellbutrin 450 mg p.o. daily. 5. BuSpar 10 mg p.o. t.i.d. 6. Calcium carbonate with vitamin D 1 tablet p.o. at bedtime. 7. Clonazepam 1 mg p.o. at bedtime and 0.5 mg p.o. daily. 8. Colace 100 mg p.o. b.i.d. 9. Fentanyl patch 75 mcg topically q.3 days. 10. Ferrous sulfate 325 mg p.o. at bedtime. 11. Levsin 170 mg. p.o. q. 48 hours. 12. Gabapentin 600 mg p.o. t.i.d. 13. Humalog insulin as per pump. 14. Levothyroxine 200 mcg p.o. daily. 15. Metoprolol XL 12.5 mg p.o. at bedtime. 16. Multivitamin 1 tablet p.o. daily. 17. Fish oil 1000 mg p.o. q.i.d. 18. Percocet 10/325 generic 1 tablet p.o. q.4 hours p.r.n. breakthrough pain. 19. Lyrica 75 mg p.o. b.i.d. 20. Zoloft 250 mg p.o. daily. DISCHARGE DIAGNOSES: 1. Rehabilitation ambulatory dysfunction secondary to Charcot joint right ankle, status post right [facility] Dr. Moreno, nonweightbearing right lower extremity. 2. Diabetes type 1, with peripheral neuropathy. 3. Long-term insulin use. 4. Anxiety, controlled with medications. 5. Depression, controlled with medication. 6. Coronary artery disease with remote history CABG. 7. Hypertension, controlled with medication. 8. Peripheral vascular disease. 9. Opioid induced constipation; takes an enema every 3rd day with changing Duragesic patch. 10. Postoperative anemia. 11. Hypoalbuminemia. 12. Hypercholesteremia, on statin. 13. Renal insufficiency improved with normal BUN and creatinine on 04/15. 14. History of DVT. 15. History of NV. 16. Status post CABG. CONDITION AT DISCHARGE: Improved and stable. PROGNOSIS: Rehab prognosis appears good for continued improvement at home and return to independent living at the wheelchair level hopefully he will be a good prosthetic candidate in the near future. Job ID: [id number] Dictated Date: 05/10/2016 20:34:20 Powder Truck Driver Date: 05/11/2016 14:07:33/aayush RUCKER
== END 2016-04-27 17:35 | disposition home health service (06) | DRG 561 ==
PROVIDERS: ADMIT Physical Medicine & Rehabilitation; ATTEND Physical Medicine & Rehabilitation
DX: Z47.81 Encounter for orthopedic aftercare following surgical amputation (principal); Z89.511 Acquired absence of right leg below knee; E10.42 Type 1 diabetes mellitus with diabetic polyneuropathy; Z79.4 Long term (current) use of insulin; F41.9 Anxiety disorder, unspecified; F32.9 Major depressive disorder, single episode, unspecified; I25.10 Atherosclerotic heart disease of native coronary artery without angina pectoris; I10 Essential (primary) hypertension; I73.9 Peripheral vascular disease, unspecified; K59.03 Drug induced constipation; D64.9 Anemia, unspecified; E78.00 Pure hypercholesterolemia, unspecified; N28.9 Disorder of kidney and ureter, unspecified; Z86.718 Personal history of other venous thrombosis and embolism; I25.2 Old myocardial infarction; T40.2X5A Adverse effect of other opioids, initial encounter; Z95.1 Presence of aortocoronary bypass graft
CPT/HCPCS: 36415; 80053; 82962; 85025

== ENCOUNTER 2016-07-21 12:23 | Outpatient (RCR) | payer MEDICARE ==
[~2016-07-21 12:23] MED LIST changes: +ASPI-808 PO; +BUPR-42 PO; +BUSP10TA95 PO; +CALC-654 PO; +CLON1TAB3 PO; +DOCU-143 PO; +FERR-84 PO; +INSU100V; +LEVO200T6 PO; +MULT-35 PO; +OXYC-202 PO; +PREG75CA PO; +SERT100T8 PO; +SERT50TA9 PO
[2016-07-21 12:45] LABS: BASOPHILS % (AUTO) 0 % (0-10); EOSINOPHILS # (AUTO) 0.1 10^3/uL (0.0-0.3); EOSINOPHILS % (AUTO) 2 % (0-10); LYMPHOCYTES # (AUTO) 0.7 X 10^3 (1.0-4.0); LYMPHOCYTES % (AUTO) 18 % (12-44); MEAN CORPUSCULAR HEMOGLOBIN 30 PG (25-34); MEAN CORPUSCULAR HGB CONC 34 G/DL (32-36); MEAN CORPUSCULAR VOLUME 89 FL (80-99); MEAN PLATELET VOLUME 9.3 FL (7.4-10.4); MONOCYTES # (AUTO) 0.3 X 10^3 (0.0-1.0); MONOCYTES % (AUTO) 6 % (0-12); NEUTROPHILS % (AUTO) 74 % (42-75); PLATELET COUNT 142 10^3/uL (130-400); RED BLOOD COUNT 3.84 10^6/uL (4.35-5.85); RED CELL DISTRIBUTION WIDTH 13.2 % (10.0-14.5); WHITE BLOOD COUNT 4.1 10^3/uL (4.3-11.0)
[2016-07-21 13:13] LABS: ALBUMIN 3.6 G/DL (3.2-4.5); BILIRUBIN,TOTAL 0.5 MG/DL (0.1-1.0); CALCIUM 8.6 MG/DL (8.5-10.1); CREATININE SERUM 1.54 MG/DL (0.60-1.30); TOTAL PROTEIN 5.7 G/DL (6.4-8.2)
[2016-07-22 06:23] LABS: LIGHT CHAIN KAPPA SERUM QUANT 39.22 mg/L (3.30-19.40); LIGHT CHAIN LAMBDA SERUM QUANT 13.99 mg/L (5.71-26.30)
[2016-09-29] MEDS ORDERED: CEPH-507 PO (14:41)
== END 2016-10-19 | disposition home or self-care (01) ==
LOC: ONC 12:23
PROVIDERS: ATTEND Internal Medicine Hematology & Oncology
DX: D47.2 Monoclonal gammopathy (principal); N18.3 Chronic kidney disease, stage 3 (moderate); E11.22 Type 2 diabetes mellitus with diabetic chronic kidney disease; G60.9 Hereditary and idiopathic neuropathy, unspecified; D63.8 Anemia in other chronic diseases classified elsewhere; Z79.4 Long term (current) use of insulin; Z79.899 Other long term (current) drug therapy
CPT/HCPCS: 36415; 80053; 82306; 82784; 83883; 85025; 99213

== ENCOUNTER → 2016-09-19 | Outpatient (CLI) | payer MEDICARE ==
[2016-09-19 09:57] LABS: THYROID STIMULATING HORMONE 0.2 UIU/ML (0.35-4.94)
== END ==
LOC: LAB 08:54
PROVIDERS: ATTEND Internal Medicine
DX: E03.4 Atrophy of thyroid (acquired) (principal); E10.8 Type 1 diabetes mellitus with unspecified complications
CPT/HCPCS: 36415; 83036; 84439; 84443

== ENCOUNTER → 2016-09-27 | Outpatient (CLI) | payer MEDICARE ==
[~2016-09-27] MED LIST changes: +CEPH-507 PO
[2016-09-27 13:15] LABS: MEAN PLATELET VOLUME 10.1 FL (7.4-10.4); RED BLOOD COUNT 4.06 10^6/uL (4.35-5.85); RED CELL DISTRIBUTION WIDTH 12.8 % (10.0-14.5); WHITE BLOOD COUNT 5.2 10^3/uL (4.3-11.0)
[2016-09-27 13:28] LABS: BILIRUBIN,URINE NEGATIVE (NEGATIVE); KETONES,URINE NEGATIVE (NEGATIVE); LEUKOCYTE ESTERASE ,URINE NEGATIVE (NEGATIVE); NITRITE,URINE NEGATIVE (NEGATIVE); PH,URINE 5 (5-9); PROTEIN,URINE NEGATIVE (NEGATIVE); UROBILINOGEN,URINE NORMAL (NORMAL)
[2016-09-27 13:33] LABS: ALBUMIN 3.9 GM/DL (3.2-4.5); CALCIUM 9.1 MG/DL (8.5-10.1); CREATININE SERUM 1.36 MG/DL (0.60-1.30); ICTERUS 0.5 (-100-1.9); PHOSPHORUS 3.6 MG/DL (2.3-4.7); POTASSIUM 3.6 MMOL/L (3.6-5.0)
[2016-09-27 13:45] LABS: SQUAMOUS EPITHELIAL CELL,UR RARE /HPF
[2016-09-27 13:57] LABS: PROTEIN/CREATININE RATIO 0.08
== END ==
LOC: LAB 12:50
PROVIDERS: ATTEND Nurse Practitioner
DX: E44.1 Mild protein-calorie malnutrition (principal); D61.818 Other pancytopenia; E11.29 Type 2 diabetes mellitus with other diabetic kidney complication; I12.9 Hypertensive chronic kidney disease with stage 1 through stage 4 chronic kidney disease, or unspecified chronic kidney disease; N18.3 Chronic kidney disease, stage 3 (moderate); N25.81 Secondary hyperparathyroidism of renal origin; D63.1 Anemia in chronic kidney disease; D47.2 Monoclonal gammopathy; E87.3 Alkalosis; E78.5 Hyperlipidemia, unspecified; E87.5 Hyperkalemia; R80.9 Proteinuria, unspecified
CPT/HCPCS: 36415; 80061; 80069; 81000; 82306; 82570; 82728; 83540; 84156; 85027

== ENCOUNTER 2016-09-29 12:24 | Emergency (ER) | payer MEDICARE ==
[~2016-09-29] VITALS: Ht 177.8 cm; Wt 63.6 kg
[~2016-09-29 12:24] MED LIST changes: -CEPH-507 PO
--- OUTSIDE RECORDS SUMMARY | 2016-09-29 12:34 | XMS REPORT | Continuity of Care Document ---
Author Author [facility] Organization [facility] Address Unknown Phone Unavailable Care Team Providers Care Manager Urgent Care Name Role Phone Humza Kapoor PCP [phone] Source Comments Some departments are not documenting in the electronic medical record. If you do not see the information that you expected, contact Release of Information in the Health Information Management department at [phone] for further assistance in locating additional records.[facility] Active Allergies and Adverse Reactions No [...] by SubQ Pump route. Active Patients Own HYDROcodone/acetaminophen Take 1 Tab by mouth every 05/29/19 Active (+) (LORTAB, NORCO) 6 hours as needed 16 10/325 mg tablet levothyroxine (SYNTHROID) Take 200 mcg by mouth 07/23/19 Active 200 mcg tablet daily. 16 buPROPion XL (WELLBUTRIN Take 1 Tab by mouth every 90 Tab 3 12/31/19 Active XL) 150 mg tablet morning. Indications: 16 ANXIETY WITH DEPRESSION buPROPion XL (WELLBUTRIN Take 1 Tab by mouth every 90 Tab 3 12/31/19 Active XL) 300 mg tablet morning. Indications: 16 ANXIETY WITH DEPRESSION pregabalin (LYRICA) 75 mg Take 75 mg by mouth twice Active capsule daily. sertraline (ZOLOFT) 100 2.5 Tabs daily. 225 Tab 1 05/05/19 Active mg tablet Indications: DEPRESSION 17 clonazePAM (KLONOPIN) 1 For anxiety. Take 1/2 a 45 Tab 3 06/21/19 Active mg tablet tab in AM, 1 tab at 17 night. May take other 1/2 tab if absolutely needed. Indications: Anxiety busPIRone (BUSPAR) 15 mg Take 1 Tab by mouth three 90 Tab 6 09/29/19 Active tablet times daily. For anxiety 17 busPIRone (BUSPAR) 15 mg Take 1 Tab by mouth three 90 Tab 3 06/21/19 09/29/19 Discontin tablet times daily. For anxiety 17 17 ued Active Problems Problem Noted Date Recurrent major depressive disorder, in full remission (HCC) 06/20/2016 Dysthymia 11/07/2013 MDD (major depressive disorder), recurrent, [...] Vital Sign Reading Time Taken Blood Pressure 106/45 06/20/2016 11:30 AM CDT Pulse 67 06/20/2016 11:30 AM CDT Temperature - - Respiratory Rate 15 10/08/2015 11:43 AM CDT Height 1.778 m (5' 10") 06/20/2016 11:30 AM CDT Weight 63.504 kg (140 lb) 06/20/2016 11:30 AM CDT Body Mass Index 20.09 06/20/2016 11:30 AM CDT Oxygen Saturation - - Plan of Care Health Maintenance Due Date Last Done Comments Hepatitis C Screening 1954 Physical (Comprehensive) 1961 Exam Pertussis Vaccine 1965 Tetanus Vaccine 1971 Colorectal Cancer 2004 Screening Shingles Vaccine 2014 Influenza Vaccine 12/02/2016 Results from Last 3 Months Not on file
--- OUTSIDE RECORDS SUMMARY | 2016-09-29 12:39 | XMS REPORT | Continuity of Care Document ---
Author Author [facility] Organization [facility] Address Unknown Phone Unavailable Allergies Active Description Code Type Severity Reaction Onset Reported/Identified Relationship to Patient Clinical Status Yes No Known Drug Allergies [id number] Drug Allergy Mild N/A 07/04/2009 Medications Problems Date Dx Coded Attending Type Code Diagnosis Diagnosed By 04/28/2012 Ot 079.99 VIRAL INFECTION NOS 04/28/2012 Ot 355.9 MONONEURITIS NOS 04/28/2012 Ot 487.1 FLU W RESP MANIFEST NEC 04/28/2012 Ot 786.2 COUGH 05/11/2012 Ot 244.9 HYPOTHYROIDISM NOS 05/11/2012 Ot 250.01 DIAB VIGNESH WO COMPL, TYPE I [JUVENILE TYP 05/11/2012 Ot 276.50 VOLUME DEPLETION, UNSPECIFIED 05/11/2012 Ot 401.9 HYPERTENSION NOS 05/11/2012 Ot 414.00 CORON ATHEROSCLER NOS TYPE VESSEL, NATIV 05/11/2012 Ot 486 PNEUMONIA, ORGANISM NOS 05/11/2012 Ot 593.9 RENAL URETERAL DIS NOS 05/11/2012 Ot V03.82 PROPHYLACTIC VACC AGAINST STREPTOCOCCUS 05/11/2012 Ot V12.51 HX-VENOUS THROMBOSIS EMBOLISM 05/11/2012 Ot V45.81 AORTOCORONARY BYPASS 05/11/2012 Ot V45.85 INSULIN PUMP STATUS 05/11/2012 Ot V58.67 LONG-TERM (CURRENT) USE OF INSULIN 06/05/2012 Ot 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 06/05/2012 Ot 284.19 OTHER PANCYTOPENIA 06/05/2012 Ot 285.9 ANEMIA NOS 06/05/2012 Ot 585.9 CHRONIC KIDNEY DISEASE, UNSPECIFIED 06/05/2012 Ot V58.67 LONG-TERM (CURRENT) USE OF INSULIN 06/05/2012 Ot V58.69 OTH MED,LT,CURRENT USE 11/20/2012 JAMIE VELAZQUEZ APRN Ot 250.80 DIAB W OTH SPEC MANIFEST, TYPE II OR UNS 11/20/2012 VELAZQUEZ, PETER J MANAGER GAMES Ot 780.2 SYNCOPE AND COLLAPSE 11/20/2012 JAMIE VELAZQUEZ MANAGER GAMES Ot 910.0 ABRASION HEAD 11/20/2012 JAMIE VELAZQUEZ MANAGER GAMES Ot 913.0 ABRASION FOREARM 11/20/2012 JAMIE VELAZQUEZ MANAGER GAMES Ot 916.0 ABRASION HIP LEG 11/20/2012 JAMIE VELAZQUEZ MANAGER GAMES Ot E000.8 OTHER EXTERNAL CAUSE STATUS 11/20/2012 JAMIE VELAZQUEZ MANAGER GAMES Ot E030 UNSPECIFIED ACTIVITY 11/20/2012 JAMIE VELAZQUEZ MANAGER GAMES Ot E849.0 ACCIDENT IN HOME 11/20/2012 JAMIE VELAZQUEZ MANAGER GAMES Ot E888.9 FALL NOS 11/20/2012 JAMIE VELAZQUEZ MANAGER GAMES Ot V45.85 INSULIN PUMP STATUS 06/10/2013 DEVONTE, BOBAN N Ot 250.00 DIAB VIGNESH WO COMPL, TYPE II OR UNSPEC TY 06/10/2013 DEVONTE, BOBAN N Ot 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 06/10/2013 DEVONTE, BOBAN N Ot 356.9 IDIO PERIPH NEURPTHY NOS 06/10/2013 DEVONTE BOBAN N Ot 585.3 CHRONIC KIDNEY DISEASE, STAGE III (MODER 06/10/2013 DEVONTE BOBAN N Ot V58.67 LONG-TERM (CURRENT) USE OF INSULIN 06/10/2013 DEVONTE BOBAN N Ot V58.69 OTH MED,LT,CURRENT USE 09/25/2013 DEVONTE BOBAN N Ot 250.00 DIAB VIGNESH WO COMPL, TYPE II OR UNSPEC TY 09/25/2013 DEVONTE BOBAN N Ot 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 09/25/2013 DEVONTE BOBAN N Ot 356.9 IDIO PERIPH NEURPTHY NOS 09/25/2013 DEVONTE BOBAN N Ot 585.3 CHRONIC KIDNEY DISEASE, STAGE III (MODER 09/25/2013 DEVONTE BOBAN N Ot V58.67 LONG-TERM (CURRENT) USE OF INSULIN 09/25/2013 DEVONTE BOBAN N Ot V58.69 OTH MED,LT,CURRENT USE 03/19/2014 DEVONTE BOBAN N Ot 250.00 DIAB VIGNESH WO COMPL, TYPE II OR UNSPEC TY 03/19/2014 DEVONTE BOBAN N Ot 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 03/19/2014 DEVONTE, BOBAN N Ot 356.9 IDIO PERIPH NEURPTHY NOS 03/19/2014 LIZY WHITNEY N Ot 585.3 CHRONIC KIDNEY DISEASE, STAGE III (MODER 03/19/2014 LIZY WHITNEY N Ot V58.67 LONG-TERM (CURRENT) USE OF INSULIN 03/19/2014 LIZY WHITNEY N Ot V58.69 OTH MED,LT,CURRENT USE 06/26/2014 DEVONTELIZY MELVIN N Ot 250.00 06/26/2014 DEVONTE, LIZY N Ot 273.1 06/26/2014 DEVONTE, BOBREGINA N Ot 356.9 06/26/2014 DEVONTE, BOBAN N Ot 585.3 06/26/2014 DEVONTE, BOBREGINA N Ot V58.67 06/26/2014 DEVONTE, BOBREGINA N Ot V58.69 06/27/2014 DEVONTE, BOBAN N Ot 250.00 06/27/2014 DEVONTE, BOBAN N Ot 273.1 06/27/2014 DEVONTE, BOBREGINA N Ot 356.9 06/27/2014 DEVONTE, LIZY N Ot 585.3 06/27/2014 DEVONTE, BOBREGINA N Ot V58.67 06/27/2014 DEVONTE, BOBAN N Ot V58.69 06/30/2014 DEVONTE, BOBAN N Ot 250.00 06/30/2014 DEVONTE, BOBREGINA N Ot 273.1 06/30/2014 DEVONTE, BOBREGINA N Ot 356.9 06/30/2014 DEVONTE, BOBAN N Ot 585.3 06/30/2014 DEVONTE, BOBAN N Ot V58.67 06/30/2014 DEVONTE, BOBAN N Ot V58.69 07/03/2014 Ot 250.40 07/03/2014 Ot 263.9 07/03/2014 Ot 272.4 07/03/2014 Ot 276.3 07/03/2014 Ot 276.7 07/03/2014 Ot 285.21 07/03/2014 Ot 403.10 07/03/2014 Ot 585.3 07/03/2014 Ot 588.81 07/03/2014 Ot 791.0 07/10/2014 Ot 250.40 07/10/2014 Ot 263.9 07/10/2014 Ot 272.4 07/10/2014 Ot 276.3 07/10/2014 Ot 276.7 07/10/2014 Ot 285.21 07/10/2014 Ot 403.10 07/10/2014 Ot 585.3 07/10/2014 Ot 588.81 07/10/2014 Ot 791.0 08/22/2014 Ot 250.40 08/22/2014 Ot 263.9 08/22/2014 Ot 272.4 08/22/2014 Ot 276.3 08/22/2014 Ot 276.7 08/22/2014 Ot 285.21 08/22/2014 Ot 403.10 08/22/2014 Ot 585.3 08/22/2014 Ot 588.81 08/22/2014 Ot 791.0 08/22/2014 DEVONTE, BOBREGINA N Ot 250.00 08/22/2014 DEVONTE, BOBREGINA N Ot 273.1 08/22/2014 DEVONTE, BOBAN N Ot 356.9 08/22/2014 DEVONTE BOBREGINA N Ot 585.3 08/22/2014 DEVONTE BOBREGINA N Ot V58.67 08/22/2014 DEVONTE BOBREGINA N Ot V58.69 09/09/2014 DEVONTE, BOBAN N Ot 250.00 09/09/2014 DEVONTE, BOBAN N Ot 273.1 09/09/2014 DEVONTE, BOBAN N Ot 356.9 09/09/2014 DEVONTE, BOBAN N Ot 585.3 09/09/2014 DEVONTE, BOBAN N Ot V58.67 09/09/2014 DEVONTE, BOBAN N Ot V58.69 09/24/2014 DEVONTE BOBAN N Ot 250.00 DIAB VIGNESH WO COMPL, TYPE II OR UNSPEC TY 09/24/2014 DEVONTE BOBAN N Ot 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 09/24/2014 DEVONTE, BOBAN N Ot 356.9 IDIO PERIPH NEURPTHY NOS 09/24/2014 DEVONTE, BOBAN N Ot 585.3 CHRONIC KIDNEY DISEASE, STAGE III (MODER 09/24/2014 DEVONTE, RONENAN N Ot V58.67 LONG-TERM (CURRENT) USE OF INSULIN 09/24/2014 DEVONTERONEN MELVINREGINA N Ot V58.69 OTH MED,LT,CURRENT USE 09/24/2014 Ot 244.9 09/24/2014 Ot 250.92 12/16/2014 HARRY SAMANO Ot 250.00 12/16/2014 HARRY SAMANO UNIT AIDE Ot 273.1 12/16/2014 HARRY SAMANO UNIT AIDE Ot 356.9 12/16/2014 HARRY SAMANO UNIT AIDE Ot 585.3 12/16/2014 HARRY SAMANO UNIT AIDE Ot V58.67 12/16/2014 HARRY SAMANO UNIT AIDE Ot V58.69 12/16/2014 NEW, GRACE Rivera PLASTIC PARTS FABRICATOR TRIMMER-C Ot 250.40 12/16/2014 NEW, GRACE Rivera PLASTIC PARTS FABRICATOR TRIMMER-C Ot 263.9 12/16/2014 NEW, GRACE Rviera PLASTIC PARTS FABRICATOR TRIMMER-C Ot 272.4 12/16/2014 NEW, GRACE Rivera PLASTIC PARTS FABRICATOR TRIMMER-C Ot 276.3 12/16/2014 NEW, GRACE Rivera PLASTIC PARTS FABRICATOR TRIMMER-C Ot 276.7 12/16/2014 NEW, GRACE Rivera PLASTIC PARTS FABRICATOR TRIMMER-C Ot 285.21 12/16/2014 NEW, GRACE Rivera PLASTIC PARTS FABRICATOR TRIMMER-C Ot 403.10 12/16/2014 NEW, GRACE Rivera PLASTIC PARTS FABRICATOR TRIMMER-C Ot 585.3 12/16/2014 NEW, GRACE Rivera PLASTIC PARTS FABRICATOR TRIMMER-C Ot 588.81 12/16/2014 NEW, GRACE Rivera PLASTIC PARTS FABRICATOR TRIMMER-C Ot 791.0 12/16/2014 Ot 250.40 12/16/2014 Ot 263.9 12/16/2014 Ot 272.4 12/16/2014 Ot 276.3 12/16/2014 Ot 276.7 12/16/2014 Ot 285.21 12/16/2014 Ot 403.10 12/16/2014 Ot 585.3 12/16/2014 Ot 588.81 12/16/2014 Ot 791.0 12/16/2014 Ot 244.9 12/16/2014 Ot 250.92 12/16/2014 Ot 250.40 12/16/2014 Ot 263.9 12/16/2014 Ot 272.4 12/16/2014 Ot 276.3 12/16/2014 Ot 276.7 12/16/2014 Ot 285.21 12/16/2014 Ot 403.10 12/16/2014 Ot 585.3 12/16/2014 Ot 588.81 12/16/2014 Ot 791.0 12/16/2014 LIZY WHITNEY Ot 250.00 12/16/2014 LIZY WHITNEY N Ot 273.1 12/16/2014 DEVONTELIZY MELVIN N Ot 356.9 12/16/2014 DEVONTELIZY MELVIN N Ot 585.3 12/16/2014 DEVONTELIZY MELVIN N Ot V58.67 12/16/2014 DEVONTELIZY MELVIN N Ot V58.69 12/18/2014 Ot 244.9 12/18/2014 Ot 250.92 01/07/2015 JT FIGUEROA MD Ot 244.8 01/07/2015 JT FIGUEROA MD Ot 246.8 01/07/2015 JT FIGUEROA MD Ot 250.93 01/22/2015 DEVONTELIZY MELVIN N Ot 250.00 01/22/2015 LIZY WHITNEY N Ot 273.1 01/22/2015 DEVONTELIZY MELVIN N Ot 356.9 01/22/2015 DEVONTELIZY MELVIN N Ot 585.3 01/22/2015 LIZY WHITNEY N Ot V58.67 01/22/2015 LIZY WHITNEY N Ot V58.69 01/27/2015 HARRY SAMANO UNIT AIDE Ot D47.2 01/27/2015 HARRY SAMANO UNIT AIDE Ot E11.9 01/27/2015 HARRY SAMANO UNIT AIDE Ot G60.9 01/27/2015 HARRY SAMANO UNIT AIDE Ot N18.3 01/27/2015 HARRY SAMANO UNIT AIDE Ot Z79.4 01/27/2015 HARRY SAMANO UNIT AIDE Ot Z79.899 02/03/2015 NEW, GRACE Rivera PLASTIC PARTS FABRICATOR TRIMMER-C Ot D63.1 02/03/2015 NEW, GRACE Rivera PLASTIC PARTS FABRICATOR TRIMMER-C Ot E11.29 02/03/2015 NEW, GRACE Rivera PLASTIC PARTS FABRICATOR TRIMMER-C Ot E46 02/03/2015 NEW, GRACE Rivera PLASTIC PARTS FABRICATOR TRIMMER-C Ot E87.5 02/03/2015 NEW, GRACE Rivera PLASTIC PARTS FABRICATOR TRIMMER-C Ot I12.9 02/03/2015 NEW, GRACE Rivera PLASTIC PARTS FABRICATOR TRIMMER-C Ot N18.3 02/03/2015 NEW, GRACE Rivera PLASTIC PARTS FABRICATOR TRIMMER-C Ot N25.81 02/03/2015 NEW, GRACE Rivera PLASTIC PARTS FABRICATOR TRIMMER-C Ot R80.9 02/09/2015 LIZY WHITNEY Ot 250.00 02/09/2015 LIZY WHITNEY N Ot 273.1 02/09/2015 LIZY WHITNEY N Ot 356.9 02/09/2015 LIZY WHITNEY N Ot 585.3 02/09/2015 LIZY WHITNEY N Ot V58.67 02/09/2015 LIZY WHITNEY N Ot V58.69 02/13/2015 HARRY SAMANO UNIT AIDE Ot D47.2 02/13/2015 HARRY SAMANO S UNIT AIDE Ot E11.9 02/13/2015 HARRY SAMANO UNIT AIDE Ot G60.9 02/13/2015 HARRY SAMANO S UNIT AIDE Ot N18.3 02/13/2015 HARRY SAMANO S UNIT AIDE Ot Z79.4 02/13/2015 HARRY SAMANO S UNIT AIDE Ot Z79.899 03/27/2015 REGINALD PAYAN, ANANYA Cobb Ot E10.9 TYPE 1 DIABETES MELLITUS WITHOUT COMPLIC 03/27/2015 REGINALD PAYAN, ANANYA Cobb Ot L03.114 CELLULITIS OF LEFT UPPER LIMB 03/27/2015 REGINALD PAYAN, ANANYA Cobb Ot S60.512A ABRASION OF LEFT HAND, INITIAL ENCOUNTER 03/27/2015 REGINALD PAYAN, ANANYA Cobb Ot X58.XXXA EXPOSURE TO OTHER SPECIFIED FACTORS, INI 03/27/2015 REGINALD PAYAN, ANANYA Cobb Ot Y99.8 OTHER EXTERNAL CAUSE STATUS 04/05/2015 LIZY WHITNEY Peña Ot D47.2 MONOCLONAL GAMMOPATHY 04/05/2015 DEVONTE LIZY Peña Ot E11.9 TYPE 2 DIABETES MELLITUS WITHOUT COMPLIC 04/05/2015 LIZY WHITNEY N Ot G60.9 HEREDITARY AND IDIOPATHIC NEUROPATHY, UN 04/05/2015 LIZY WHITNEY N Ot N18.3 CHRONIC KIDNEY DISEASE, STAGE 3 (MODERAT 04/05/2015 LIZY WHITNEY N Ot Z79.4 WASH HELPER (CURRENT) USE OF INSULIN 04/05/2015 LIZY WHITNEY N Ot Z79.899 OTHER NURSING HOME (CURRENT) DRUG THERAPY 06/08/2015 Ot 403.90 06/08/2015 Ot 585.3 06/08/2015 Ot 588.81 06/08/2015 Ot 273.1 06/08/2015 Ot 285.9 06/08/2015 Ot 585.3 06/08/2015 Ot V58.67 06/08/2015 Ot V58.69 06/08/2015 Ot 403.90 06/08/2015 Ot 585.3 06/08/2015 Ot 588.81 06/08/2015 Ot 273.1 06/08/2015 Ot 285.9 06/08/2015 Ot 585.3 06/08/2015 Ot V58.67 06/08/2015 Ot V58.69 06/08/2015 Ot 600.00 06/08/2015 Ot 250.40 06/08/2015 Ot 403.10 06/08/2015 Ot 585.3 06/08/2015 Ot 244.8 06/08/2015 Ot 257.9 06/08/2015 Ot V76.44 06/08/2015 Ot 250.40 06/08/2015 Ot 272.4 06/08/2015 Ot 585.3 06/08/2015 Ot 791.0 06/08/2015 Ot 250.01 06/08/2015 Ot 250.40 06/08/2015 Ot 263.9 06/08/2015 Ot 276.2 06/08/2015 Ot 276.7 06/08/2015 Ot 285.21 06/08/2015 Ot 403.90 06/08/2015 Ot 585.3 06/08/2015 Ot 588.81 06/08/2015 Ot 791.0 06/08/2015 Ot 244.9 06/08/2015 Ot 250.01 06/08/2015 Ot 272.4 06/08/2015 Ot 401.9 06/08/2015 HARRY SAMANO UNIT AIDE Ot 250.00 06/08/2015 AHRRY SAMANO UNIT AIDE Ot 273.1 06/08/2015 HARRY SAMANO UNIT AIDE Ot 356.9 06/08/2015 HARRY SAMANO UNIT AIDE Ot 585.3 06/08/2015 HARRY SAMANO UNIT AIDE Ot V58.67 06/08/2015 HARRY SAMANO UNIT AIDE Ot V58.69 06/08/2015 GRACE CURIEL NP-C Ot 250.40 06/08/2015 GRACE CURIEL NP-C Ot 263.9 06/08/2015 GRACE CURIEL. PLASTIC PARTS FABRICATOR TRIMMER-C Ot 272.4 06/08/2015 NEW, GRACE Rivera PLASTIC PARTS FABRICATOR TRIMMER-C Ot 276.2 06/08/2015 NEW, GRACE Rivera PLASTIC PARTS FABRICATOR TRIMMER-C Ot 276.7 06/08/2015 NEW, GRACE Rivera PLASTIC PARTS FABRICATOR TRIMMER-C Ot 285.21 06/08/2015 NEW, GRACE Rivera PLASTIC PARTS FABRICATOR TRIMMER-C Ot 403.10 06/08/2015 NEW, GRACE Rivera PLASTIC PARTS FABRICATOR TRIMMER-C Ot 585.3 06/08/2015 NEW, GRACE Rivera PLASTIC PARTS FABRICATOR TRIMMER-C Ot 588.81 06/08/2015 NEW, GRACE Rivera PLASTIC PARTS FABRICATOR TRIMMER-C Ot 791.0 06/08/2015 JAZMYNE HILEMANI S UNIT AIDE Ot 250.00 06/08/2015 JAZMYNE HILAH S UNIT AIDE Ot 273.1 06/08/2015 JAZMYNE HILAH S UNIT AIDE Ot 356.9 06/08/2015 JAZMYNE HILAH S UNIT AIDE Ot 585.3 06/08/2015 JAZMYNE HILAH S UNIT AIDE Ot V58.67 06/08/2015 JAZMYNE HILAH S UNIT AIDE Ot V58.69 06/08/2015 CAROLINA PAYAN, JT Negrete Ot 244.9 06/08/2015 JT FIGUEROA MD Ot 250.01 06/08/2015 JT FIGUEROA MD Ot 272.4 06/08/2015 NEW, GRACE Rivera PLASTIC PARTS FABRICATOR TRIMMER-C Ot 250.40 06/08/2015 NEW, GRACE Rivera PLASTIC PARTS FABRICATOR TRIMMER-C Ot 263.9 06/08/2015 NEW, GRACE Rivera PLASTIC PARTS FABRICATOR TRIMMER-C Ot 272.4 06/08/2015 NEW, GRACE Rivera PLASTIC PARTS FABRICATOR TRIMMER-C Ot 276.7 06/08/2015 NEW, GRACE Rivera PLASTIC PARTS FABRICATOR TRIMMER-C Ot 285.21 06/08/2015 NEW, GRACE Rivera PLASTIC PARTS FABRICATOR TRIMMER-C Ot 403.10 06/08/2015 NEW, GRACE Rivera PLASTIC PARTS FABRICATOR TRIMMER-C Ot 585.3 06/08/2015 NEW, GRACE Rivera PLASTIC PARTS FABRICATOR TRIMMER-C Ot 588.81 06/08/2015 NEW, GRACE Rivera PLASTIC PARTS FABRICATOR TRIMMER-C Ot 791.0 06/08/2015 NEW, GRACE Rivera PLASTIC PARTS FABRICATOR TRIMMER-C Ot 250.40 06/08/2015 NEW, GRACE Rivera PLASTIC PARTS FABRICATOR TRIMMER-C Ot 263.9 06/08/2015 NEW, GRACE Rivera PLASTIC PARTS FABRICATOR TRIMMER-C Ot 272.4 06/08/2015 NEW, GRACE Rivera PLASTIC PARTS FABRICATOR TRIMMER-C Ot 276.3 06/08/2015 NEW, GRACE Rivera PLASTIC PARTS FABRICATOR TRIMMER-C Ot 276.7 06/08/2015 NEW, GRACE Rivera PLASTIC PARTS FABRICATOR TRIMMER-C Ot 285.21 06/08/2015 NEW, GRACE Rivera PLASTIC PARTS FABRICATOR TRIMMER-C Ot 403.10 06/08/2015 NEW, GRACE Rivera PLASTIC PARTS FABRICATOR TRIMMER-C Ot 585.3 06/08/2015 NEW, GRACE Rivera PLASTIC PARTS FABRICATOR TRIMMER-C Ot 588.81 06/08/2015 NEW, GRACE Rivera PLASTIC PARTS FABRICATOR TRIMMER-C Ot 791.0 06/08/2015 Ot 250.40 06/08/2015 Ot 263.9 06/08/2015 Ot 272.4 06/08/2015 Ot 276.3 06/08/2015 Ot 276.7 06/08/2015 Ot 285.21 06/08/2015 Ot 403.10 06/08/2015 Ot 585.3 06/08/2015 Ot 588.81 06/08/2015 Ot 791.0 06/08/2015 Ot 244.9 06/08/2015 Ot 250.92 06/08/2015 Ot 250.40 06/08/2015 Ot 263.9 06/08/2015 Ot 272.4 06/08/2015 Ot 276.3 06/08/2015 Ot 276.7 06/08/2015 Ot 285.21 06/08/2015 Ot 403.10 06/08/2015 Ot 585.3 06/08/2015 Ot 588.81 06/08/2015 Ot 791.0 06/08/2015 JT FIGUEROA MD Ot 244.8 06/08/2015 JT FIGUEROA MD Ot 246.8 06/08/2015 JT FIGUEROA MD Ot 250.93 06/08/2015 DEVONTE, BOBREGINA N Ot 250.00 06/08/2015 DEVONTE, BOBREGINA N Ot 273.1 06/08/2015 DEVONTE, BOBAN N Ot 356.9 06/08/2015 DEVONTE, BOBAN N Ot 585.3 06/08/2015 DEVONTE, BOBAN N Ot V58.67 06/08/2015 DEVONTE, BOBAN N Ot V58.69 06/08/2015 HARRY SAMANO UNIT AIDE Ot D47.2 06/08/2015 HARRY SAMANO UNIT AIDE Ot E11.9 06/08/2015 HARRY SAMANO UNIT AIDE Ot G60.9 06/08/2015 HARRY SAMANO UNIT AIDE Ot N18.3 06/08/2015 HARRY SAMANO UNIT AIDE Ot Z79.4 06/08/2015 SAMANOHARRY Johnson UNIT AIDE Ot Z79.899 06/08/2015 NEW, GRACE Rivera PLASTIC PARTS FABRICATOR TRIMMER-C Ot D63.1 06/08/2015 NEW, GRACE Rivera PLASTIC PARTS FABRICATOR TRIMMER-C Ot E11.29 06/08/2015 NEW, GRACE Rivera PLASTIC PARTS FABRICATOR TRIMMER-C Ot E46 06/08/2015 NEW, GRACE Rivera PLASTIC PARTS FABRICATOR TRIMMER-C Ot E87.5 06/08/2015 NEW, GRACE Rivera PLASTIC PARTS FABRICATOR TRIMMER-C Ot I12.9 06/08/2015 NEW, GRACE Rivera PLASTIC PARTS FABRICATOR TRIMMER-C Ot N18.3 06/08/2015 NEW, GRACE Rivera PLASTIC PARTS FABRICATOR TRIMMER-C Ot N25.81 06/08/2015 NEW, GRACE Rivera PLASTIC PARTS FABRICATOR TRIMMER-C Ot R80.9 06/08/2015 DEVONTE, BOBAN N Ot D47.2 06/08/2015 DEVONTE, BOBAN N Ot E11.9 06/08/2015 DEVONTE, BOBAN N Ot G60.9 06/08/2015 DEVONTE, BOBAN N Ot N18.3 06/08/2015 DEVONTE, BOBAN N Ot Z79.4 06/08/2015 DEVONTE, BOBAN N Ot Z79.899 06/30/2015 CAROLINA PAYAN, JT Negrete Ot E03.8 07/10/2015 DEVONTE, BOBAN N Ot D47.2 07/10/2015 DEVONTE, BOBAN N Ot E11.9 07/10/2015 DEVONTE, BOBAN N Ot G60.9 07/10/2015 DEVONTE, BOBAN N Ot N18.3 07/10/2015 DEVONTE, BOBAN N Ot Z79.4 07/10/2015 DEVONTE, BOBAN N Ot Z79.899 07/17/2015 DEVONTE, BOBAN N Ot D47.2 MONOCLONAL GAMMOPATHY 07/17/2015 DEVONTE, BOBAN N Ot 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 07/17/2015 LIZY WHITNEY N Ot G60.9 HEREDITARY AND IDIOPATHIC NEUROPATHY, UN 07/17/2015 LIZY WHITNEY N Ot N18.3 CHRONIC KIDNEY DISEASE, STAGE 3 (MODERAT 07/17/2015 LIZY WHITNEY N Ot Z79.4 NURSING HOME (CURRENT) USE OF INSULIN 07/17/2015 LIZY WHITNEY N Ot Z79.899 OTHER WASH HELPER (CURRENT) DRUG THERAPY 08/24/2015 DEVONTE RONENREGINA N Ot D47.2 MONOCLONAL GAMMOPATHY 08/24/2015 DEVONTE BOBAN N Ot 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 08/24/2015 LIZY WHITNEY N Ot G60.9 HEREDITARY AND IDIOPATHIC NEUROPATHY, UN 08/24/2015 LIZY WHITNEY N Ot N18.3 CHRONIC KIDNEY DISEASE, STAGE 3 (MODERAT 08/24/2015 LIZY WHITNEY N Ot Z79.4 WASH HELPER (CURRENT) USE OF INSULIN 08/24/2015 LIZY WHITNEY N Ot Z79.899 OTHER NURSING HOME (CURRENT) DRUG THERAPY 08/28/2015 JT FIGUEROA MD Ot 244.8 ACQUIRED HYPOTHYROID NEC 08/28/2015 JT FIGUEROA MD Ot 246.8 DISORDERS OF THYROID NEC 08/28/2015 JT FIGUEROA MD Ot 250.93 DIAB W UNSPEC COMPL, TYPE I [JUVENILE TY 08/28/2015 LIZY WHITNEY N Ot 250.00 DIAB VIGNESH WO COMPL, TYPE II OR UNSPEC TY 08/28/2015 LIZY WHITNEY N Ot 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 08/28/2015 LIZY WHITNEY N Ot 356.9 IDIO PERIPH NEURPTHY NOS 08/28/2015 DEVONTELIZY N Ot 585.3 CHRONIC KIDNEY DISEASE, STAGE III (MODER 08/28/2015 DEVONTE LIZY N Ot V58.67 LONG-TERM (CURRENT) USE OF INSULIN 08/28/2015 DEVONTERONENREGINA N Ot V58.69 OTH MED,LT,CURRENT USE 08/28/2015 HARRY SAMANO UNIT AIDE Ot D47.2 MONOCLONAL GAMMOPATHY 08/28/2015 HARRY SAMANO UNIT AIDE Ot E11.9 TYPE 2 DIABETES MELLITUS WITHOUT COMPLIC 08/28/2015 SAMANO, HILAH S UNIT AIDE Ot G60.9 HEREDITARY AND IDIOPATHIC NEUROPATHY, UN 08/28/2015 HARRY SAMANO UNIT AIDE Ot N18.3 CHRONIC KIDNEY DISEASE, STAGE 3 ( MODERAT 08/28/2015 HARRY SAMANO UNIT AIDE Ot Z79.4 WASH HELPER (CURRENT) USE OF INSULIN 08/28/2015 HARRY SAMANO UNIT AIDE Ot Z79.899 OTHER WASH HELPER (CURRENT) DRUG THERAPY 08/28/2015 LIZY WHITNEY N Ot D47.2 MONOCLONAL GAMMOPATHY 08/28/2015 LIZY WHITNEY N Ot 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 08/28/2015 LIZY WHITNEY N Ot G60.9 HEREDITARY AND IDIOPATHIC NEUROPATHY, UN 08/28/2015 LIZY WHITNEY N Ot N18.3 CHRONIC KIDNEY DISEASE, STAGE 3 (MODERAT 08/28/2015 LIZY WHITNEY N Ot Z79.4 NURSING HOME (CURRENT) USE OF INSULIN 08/28/2015 LIZY WHITNEY N Ot Z79.899 OTHER NURSING HOME (CURRENT) DRUG THERAPY 08/28/2015 JT FIGUEROA MD Ot E03.8 OTHER SPECIFIED HYPOTHYROIDISM 08/28/2015 JT FIGUEROA MD Ot 244.8 ACQUIRED HYPOTHYROID NEC 08/28/2015 JT FIGUEROA MD Ot 246.8 DISORDERS OF THYROID NEC 08/28/2015 JT FIGUEROA MD Ot 250.93 DIAB W UNSPEC COMPL, TYPE I [JUVENILE TY 08/28/2015 LIZY WHITNEY N Ot 250.00 DIAB VIGNESH WO COMPL, TYPE II OR UNSPEC TY 08/28/2015 LIZY WHITNEY Ot 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 08/28/2015 LIZY WHITNEY N Ot 356.9 IDIO PERIPH NEURPTHY NOS 08/28/2015 LIZY WHITNEY N Ot 585.3 CHRONIC KIDNEY DISEASE, STAGE III (MODER 08/28/2015 LIZY WHITNEY N Ot V58.67 LONG-TERM (CURRENT) USE OF INSULIN 08/28/2015 LIZY WHITNEY N Ot V58.69 OTH MED,LT,CURRENT USE 08/28/2015 HARRY SAMANO UNIT AIDE Ot D47.2 MONOCLONAL GAMMOPATHY 08/28/2015 HARRY SAMANO UNIT AIDE Ot E11.9 TYPE 2 DIABETES MELLITUS WITHOUT COMPLIC 08/28/2015 HARRY SAMANO UNIT AIDE Ot G60.9 HEREDITARY AND IDIOPATHIC NEUROPATHY, UN 08/28/2015 HARRY SAMANO UNIT AIDE Ot N18.3 CHRONIC KIDNEY DISEASE, STAGE 3 ( MODERAT 08/28/2015 HARRY SAMANO UNIT AIDE Ot Z79.4 WASH HELPER (CURRENT) USE OF INSULIN 08/28/2015 HRARY SAMANO UNIT AIDE Ot Z79.899 OTHER WASH HELPER (CURRENT) DRUG THERAPY 08/28/2015 LIZY WHITNEY N Ot D47.2 MONOCLONAL GAMMOPATHY 08/28/2015 LIZY WHITNEY N Ot 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 08/28/2015 LIZY WHITNEY N Ot G60.9 HEREDITARY AND IDIOPATHIC NEUROPATHY, UN 08/28/2015 LIZY WHITNEY N Ot N18.3 CHRONIC KIDNEY DISEASE, STAGE 3 (MODERAT 08/28/2015 DEVONTELIZY MELVIN N Ot Z79.4 WASH HELPER (CURRENT) USE OF INSULIN 08/28/2015 LIZY WHITNEY N Ot Z79.899 OTHER NURSING HOME (CURRENT) DRUG THERAPY 08/28/2015 CAROLINA PAYAN, JT Negrete Ot E03.8 OTHER SPECIFIED HYPOTHYROIDISM 08/28/2015 GRACE CURIEL PLASTIC PARTS FABRICATOR TRIMMER-C Ot E11.29 TYPE 2 DIABETES MELLITUS W [facility] DIABETIC 08/28/2015 MOISÉS GRACE G. PLASTIC PARTS FABRICATOR TRIMMER-C Ot I10 ESSENTIAL (PRIMARY) HYPERTENSION 08/28/2015 MOISÉS GRACE G. PLAST[employer]S FABRICATOR TRIMMER-C Ot N18.3 CHRONIC KIDNEY DISEASE, STAGE 3 (MODERAT 09/01/2015 GRACE CURIEL P[employer]S FABRICATOR TRIMMER-C Ot D47.2 MONOCLONAL GAMMOPATHY 09/01/2015 MOISÉS GRACE G. PLASTIC PARTS FABRICATOR TRIMMER-C Ot D61.818 OTHER PANCYTOPENIA 09/01/2015 MOISÉS GRACE G. PLASTIC PARTS FABRICATOR TRIMMER-C Ot D63.1 ANEMIA IN CHRONIC KIDNEY DISEASE 09/01/2015 MOISÉS GRACE GLatonya PLASTIC PARTS FABRICATOR TRIMMER-C Ot E11.29 TYPE 2 DIABETES MELLITUS W [facility] DIABETIC 09/01/2015 GRACE CURIEL G. PLASTIC PARTS FABRICATOR TRIMMER-C Ot E44.1 MILD PROTEIN-[place] MALNUTRITION 09/01/2015 MOISÉS GRACE G. PLASTIC PARTS FABRICATOR TRIMMER-C Ot E78.5 HYPERLIPIDEMIA, UNSPECIFIED 09/01/2015 MOISÉS GRACE G. PLASTIC PARTS FABRICATOR TRIMMER-C Ot E87.3 ALKALOSIS 09/01/2015 NEW, GRACE G. PLASTIC PARTS FABRICATOR TRIMMER-C Ot E87.5 HYPERKALEMIA 09/01/2015 NEW, GRACE G. PLASTIC [employer]S FABRICATOR TRIMMER-C Ot I12.9 HYPERTENSIVE CHRONIC KIDNEY DISEASE W ST 09/01/2015 NEW GRACE GLatonya PLASTIC PARTS FABRICATOR TRIMMER-C Ot N18.3 CHRONIC KIDNEY DISEASE, STAGE 3 (MODERAT 09/01/2015 NEW, GRACE G. PLAST[employer] PARTS FABRICATOR TRIMMER-C Ot N25.81 SECONDARY HYPERPARATHYROIDISM OF RENAL O 09/01/2015 NEW, GRACE Cortez. PLASTIC PARTS FABRICATOR TRIMMER-C Ot R80.9 PROTEINURIA, UNSPECIFIED 09/09/2015 DEVONTE BOBREGINA N Ot D47.2 MONOCLONAL GAMMOPATHY 09/09/2015 DEVONTELIZY N Ot 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 09/09/2015 DEVONTELIZY N Ot G60.9 HEREDITARY AND IDIOPATHIC NEUROPATHY, UN 09/09/2015 DEVONTELIZY N Ot N18.3 CHRONIC KIDNEY DISEASE, STAGE 3 (MODERAT 09/09/2015 DEVONTE BOBREGINA N Ot Z79.4 NURSING HOME (CURRENT) USE OF INSULIN 09/09/2015 DEVONTE BOBAN N Ot Z79.899 OTHER NURSING HOME (CURRENT) DRUG THERAPY 09/18/2015 NEW GRACE CortezLatonya PLASTIC PARTS FABRICATOR TRIMMER-C Ot D47.2 MONOCLONAL GAMMOPATHY 09/18/2015 NEW GRACE CortezLatonya PLASTIC PARTS FABRICATOR TRIMMER-C Ot D61.818 OTHER PANCYTOPENIA 09/18/2015 NEW GRACE Cortez. PLASTIC PARTS FABRICATOR TRIMMER-C Ot D63.1 ANEMIA IN CHRONIC KIDNEY DISEASE 09/18/2015 NEW, GRACE DiegoLatonya PLASTIC PARTS FABRICATOR TRIMMER-C Ot E11.29 TYPE 2 DIABETES MELLITUS W OTH DIABETIC 09/18/2015 NEW, GRACE G. PLASTIC PARTS FABRICATOR TRIMMER-C Ot E44.1 MILD PROTEIN-[place] MALNUTRITION 09/18/2015 NEW, GRACE G. PLASTIC PARTS FABRICATOR TRIMMER-C Ot E78.5 HYPERLIPIDEMIA, UNSPECIFIED 09/18/2015 NEW, GRACE G. PLAST[employer]S FABRICATOR TRIMMER-C Ot E87.3 ALKALOSIS 09/18/2015 NEW, GRACE G. PLASTIC PARTS FABRICATOR TRIMMER-C Ot E87.5 HYPERKALEMIA 09/18/2015 NEW, GRACE G. PLASTIC PARTS FABRICATOR TRIMMER-C Ot I12.9 HYPERTENSIVE CHRONIC KIDNEY DISEASE W ST 09/18/2015 NEW, GRACE G. PLAST[employer]S FABRICATOR TRIMMER-C Ot N18.3 CHRONIC KIDNEY DISEASE, STAGE 3 (MODERAT 09/18/2015 GRACE CURILE PLASTIC PARTS FABRICATOR TRIMMER-C Ot N25.81 SECONDARY HYPERPARATHYROIDISM OF RENAL O 09/18/2015 GRACE CURIEL PLASTIC PARTS FABRICATOR TRIMMER-C Ot R80.9 PROTEINURIA, UNSPECIFIED 10/14/2015 DEVONTE LIZY Pompa Ot D47.2 MONOCLONAL GAMMOPATHY 10/14/2015 DEVONTE, LIZY Pompa Ot 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 10/14/2015 DEVONTE LIZY Pompa Ot G60.9 HEREDITARY AND IDIOPATHIC NEUROPATHY, UN 10/14/2015 DEVONTE LIZY Pompa Ot N18.3 CHRONIC KIDNEY DISEASE, STAGE 3 (MODERAT 10/14/2015 DEVONTE LIZY Pompa Ot Z79.4 NURSING HOME (CURRENT) USE OF INSULIN 10/14/2015 LIZY WHITNEY Ot Z79.899 OTHER NURSING HOME (CURRENT) DRUG THERAPY 02/04/2016 HOLLI DAVIS MD, Ot E10.610 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 02/04/2016 HOLLI DAVIS MD, Ot I10 ESSENTIAL (PRIMARY) HYPERTENSION 02/04/2016 HOLLI DAVIS MD, Ot S82.54XA NONDISP FX OF MEDIAL MALLEOLUS OF RIGHT 02/04/2016 HOLLI DAVIS MD, Ot S99.921A UNSPECIFIED INJURY OF RIGHT FOOT, INITIA 02/04/2016 HOLLI DAVIS MD, Ot W01.0XXA FALL SAME LEV FROM SLIP/TRIP W/O STRIKE 02/04/2016 HOLLI DAVIS MD Ot Y92.009 [facility] [address] [facility] [place] [facility] ( PRIVATE 02/04/2016 HOLLI DAVIS MD, Ot Y99.8 OTHER EXTERNAL CAUSE STATUS 02/04/2016 HOLLI DAVIS MD, Ot Z79.899 OTHER NURSING HOME (CURRENT) DRUG THERAPY 02/06/2016 HOLLI DAVIS MD, Ot E10.610 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 02/06/2016 HOLLI DAVIS MD Ot I10 ESSENTIAL (PRIMARY) HYPERTENSION 02/06/2016 HOLLI DAVIS MD, Ot S82.54XA NONDISP FX OF MEDIAL MALLEOLUS OF RIGHT 02/06/2016 HOLLI DAVIS MD, Ot S99.921A UNSPECIFIED INJURY OF RIGHT FOOT, INITIA 02/06/2016 HOLLI DAVIS MD Ot W01.0XXA FALL SAME LEV FROM SLIP/TRIP W/O STRIKE 02/06/2016 HOLLI DAVIS MD Ot Y92.[address] IN [facility], [place] ( PRIVATE 02/06/2016 HOLLI DAVIS MD Ot Y99.8 OTHER EXTERNAL CAUSE STATUS 02/06/2016 HOLLI DAVIS MD Ot Z79.899 OTHER WASH HELPER (CURRENT) DRUG THERAPY 02/14/2016 GRACE COX DO Ot E10.618 TYPE 1 DIABETES MELLITUS WITH OTHER DIAB 02/14/2016 GRACE COX DO Ot G62.9 POLYNEUROPATHY, UNSPECIFIED 02/14/2016 BROOKE GEORGE GRACE Ashton Ot I10 ESSENTIAL (PRIMARY) HYPERTENSION 02/14/2016 BROOKE GEORGE GRACE Ashton Ot I25.10 ATHSCL HEART DISEASE OF [place] CORONARY 02/14/2016 GRACE COX DO Ot I73.9 PERIPHERAL VASCULAR DISEASE, UNSPECIFIED 02/14/2016 GRACE COX DO Ot S82.851A DISPLACED TRIMALLEOLAR FRACTURE OF RIGHT 02/14/2016 GRACE COX DO Ot X58.XXXA EXPOSURE TO OTHER SPECIFIED FACTORS, INI 02/14/2016 GRACE COX DO Ot Y92.[address] OR NOT APPLICABLE 02/14/2016 GRACE COX DO Ot Y93.9 ACTIVITY, UNSPECIFIED 02/14/2016 GRACE COX DO Ot Y99.8 OTHER EXTERNAL CAUSE STATUS 02/14/2016 GRACE COX DO Ot Z79.899 OTHER NURSING HOME (CURRENT) DRUG THERAPY 02/14/2016 GRACE COX DO Ot Z87.891 PERSONAL HISTORY OF NICOTINE DEPENDENCE 02/14/2016 GRACE COX DO Ot Z89.421 ACQUIRED ABSENCE OF OTHER RIGHT TOE(S) 02/14/2016 Ot 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 02/14/2016 Ot 285.9 ANEMIA NOS 02/14/2016 Ot 585.3 CHRONIC KIDNEY DISEASE, STAGE III (MODER 02/14/2016 Ot V58.67 LONG-TERM (CURRENT) USE OF INSULIN 02/14/2016 Ot V58.69 OTH MED,LT,CURRENT USE 02/14/2016 Ot 600.00 HYPERTROPHY (BENIGN) OF PROSTATE W/O URI 02/14/2016 Ot 250.40 DIAB W RENAL MANIFEST, TYPE II OR UNSPEC 02/14/2016 Ot 403.10 HYPTNSV CHR KID DIS, BENIGN, W CHR KD ST 02/14/2016 Ot 585.3 CHRONIC KIDNEY DISEASE, STAGE III (MODER 02/14/2016 Ot 244.8 ACQUIRED HYPOTHYROID NEC 02/14/2016 Ot 257.9 TESTICULAR DYSFUNCT NOS 02/14/2016 Ot V76.44 SCREEN MAL NEOP-PROSTATE 02/14/2016 Ot 250.40 DIAB W RENAL MANIFEST, TYPE II OR UNSPEC 02/14/2016 Ot 272.4 HYPERLIPIDEMIA NEC/NOS 02/14/2016 Ot 585.3 CHRONIC KIDNEY DISEASE, STAGE III (MODER 02/14/2016 Ot 791.0 PROTEINURIA 02/14/2016 Ot 250.01 DIAB VIGNESH WO COMPL, TYPE I [JUVENILE TYP 02/14/2016 Ot 250.40 DIAB W RENAL MANIFEST, TYPE II OR UNSPEC 02/14/2016 Ot 263.9 PROTEIN-NADIA MALNUTR NOS 02/14/2016 Ot 276.2 ACIDOSIS 02/14/2016 Ot 276.7 HYPERPOTASSEMIA 02/14/2016 Ot 285.21 ANEMIA IN CHRONIC KIDNEY DISEASE 02/14/2016 Ot 403.90 HYPTNSV CHR KID DIS, UNSPEC, W CHR KD ST 02/14/2016 Ot 585.3 CHRONIC KIDNEY DISEASE, STAGE III (MODER 02/14/2016 Ot 588.81 SECONDARY HYPERPARATHYROIDISM (OF RENAL 02/14/2016 Ot 791.0 PROTEINURIA 02/14/2016 Ot 244.9 HYPOTHYROIDISM NOS 02/14/2016 Ot 250.01 DIAB VIGNESH WO COMPL, TYPE I [JUVENILE TYP 02/14/2016 Ot 272.4 HYPERLIPIDEMIA NEC/NOS 02/14/2016 Ot 401.9 HYPERTENSION NOS 02/14/2016 HARRY SAMANO UNIT AIDE Ot 250.00 DIAB VIGNESH WO COMPL, TYPE II OR UNSPEC TY 02/14/2016 HARRY SAMANO UNIT AIDE Ot 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 PLASTIC PARTS FABRICATOR TRIMMER-C Ot 250.40 DIAB W RENAL MANIFEST, TYPE II OR UNSPEC 02/14/2016 MOISÉS GRACE G. PLASTIC PARTS FABRICATOR TRIMMER-C Ot 263.9 PROTEIN-NADIA MALNUTR NOS 02/14/2016 MOISÉS GRACE G. PLASTIC PARTS FABRICATOR TRIMMER-C Ot 272.4 HYPERLIPIDEMIA NEC/NOS 02/14/2016 NEW GRACE G. PLASTIC PARTS FABRICATOR TRIMMER-C Ot 276.2 ACIDOSIS 02/14/2016 NEW GRACE G. PLASTIC PARTS FABRICATOR TRIMMER-C Ot 276.7 HYPERPOTASSEMIA 02/14/2016 MOISÉS GRACE G. PLASTIC PARTS FABRICATOR TRIMMER-C Ot 285.21 ANEMIA IN CHRONIC KIDNEY DISEASE 02/14/2016 MOISÉS GRACE G. PLASTIC PARTS FABRICATOR TRIMMER-C Ot 403.10 HYPTNSV CHR KID DIS, BENIGN, W CHR KD ST 02/14/2016 GRACE CURIEL. PLASTIC PARTS FABRICATOR TRIMMER-C Ot 585.3 CHRONIC KIDNEY DISEASE, STAGE III (MODER 02/14/2016 MOISÉS GRACE G. PLASTIC PARTS FABRICATOR TRIMMER-C Ot 588.81 SECONDARY HYPERPARATHYROIDISM (OF RENAL 02/14/2016 MOISÉS GRACE G. 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 PLASTIC [employer]S FABRICATOR TRIMMER-C Ot 250.40 DIAB W RENAL MANIFEST, TYPE II OR UNSPEC 02/14/2016 NEW, GRACE G. PLASTIC PARTS FABRICATOR TRIMMER-C Ot 263.9 PROTEIN-NADIA MALNUTR NOS 02/14/2016 NEW, GRACE G. PLASTIC PARTS FABRICATOR TRIMMER-C Ot 272.4 HYPERLIPIDEMIA NEC/NOS 02/14/2016 NEW, GRACE G. PLASTIC PARTS FABRICATOR TRIMMER-C Ot 276.7 HYPERPOTASSEMIA 02/14/2016 NEW, GRACE G. PLASTIC PARTS FABRICATOR TRIMMER-C Ot 285.21 ANEMIA IN CHRONIC KIDNEY DISEASE 02/14/2016 NEW, GRACE G. PLASTIC [employer]S FABRICATOR TRIMMER-C Ot 403.10 HYPTNSV CHR KID DIS, BENIGN, W CHR KD ST 02/14/2016 NEW, GRACE G. PLASTIC [employer]S FABRICATOR TRIMMER-C Ot 585.3 CHRONIC KIDNEY DISEASE, STAGE III (MODER 02/14/2016 NEW, GRACE Diego. PLASTIC PARTS FABRICATOR TRIMMER-C Ot 588.81 SECONDARY HYPERPARATHYROIDISM (OF RENAL 02/14/2016 NEW, GRACE Diego. PLASTIC PARTS FABRICATOR TRIMMER-C Ot 791.0 PROTEINURIA 02/14/2016 NEW, GRACE G. PLASTIC PARTS FABRICATOR TRIMMER-C Ot 250.40 DIAB W RENAL MANIFEST, TYPE II OR UNSPEC 02/14/2016 NEW, GRACE Diego. PLASTIC PARTS FABRICATOR TRIMMER-C Ot 263.9 PROTEIN-NADIA MALNUTR NOS 02/14/2016 NEW, GRACE Diego. PLASTIC PARTS FABRICATOR TRIMMER-C Ot 272.4 HYPERLIPIDEMIA NEC/NOS 02/14/2016 NEW, GRACE G. PLASTIC PARTS FABRICATOR TRIMMER-C Ot 276.3 ALKALOSIS 02/14/2016 NEW, GRACE Diego. PLASTIC PARTS FABRICATOR TRIMMER-C Ot 276.7 HYPERPOTASSEMIA 02/14/2016 NEW, GRACE G. PLASTIC PARTS FABRICATOR TRIMMER-C Ot 285.21 ANEMIA IN CHRONIC KIDNEY DISEASE 02/14/2016 NEW, GRACE Diego. PLASTIC PARTS FABRICATOR TRIMMER-C Ot 403.10 HYPTNSV CHR KID DIS, BENIGN, W CHR KD ST 02/14/2016 NEW, GRACE G. PLASTIC PARTS FABRICATOR TRIMMER-C Ot 585.3 CHRONIC KIDNEY DISEASE, STAGE III (MODER 02/14/2016 NEW, GRACE G. PLASTIC PARTS FABRICATOR TRIMMER-C Ot 588.81 SECONDARY HYPERPARATHYROIDISM (OF RENAL 02/14/2016 NEW, GRACE G. PLASTIC PARTS FABRICATOR TRIMMER-C Ot 791.0 PROTEINURIA 02/14/2016 Ot 250.40 DIAB W RENAL MANIFEST, TYPE II OR UNSPEC 02/14/2016 Ot 263.9 PROTEIN-NADIA MALNUTR NOS 02/14/2016 Ot 272.4 HYPERLIPIDEMIA NEC/NOS 02/14/2016 Ot 276.3 ALKALOSIS 02/14/2016 Ot 276.7 HYPERPOTASSEMIA 02/14/2016 Ot 285.21 ANEMIA IN CHRONIC KIDNEY DISEASE 02/14/2016 Ot 403.10 HYPTNSV CHR KID DIS, BENIGN, W CHR KD ST 02/14/2016 Ot 585.3 CHRONIC KIDNEY DISEASE, STAGE III (MODER 02/14/2016 Ot 588.81 SECONDARY HYPERPARATHYROIDISM (OF RENAL 02/14/2016 Ot 791.0 PROTEINURIA 02/14/2016 Ot 244.9 HYPOTHYROIDISM NOS 02/14/2016 Ot 250.92 DIAB W UNSPEC COMPL, TYPE II OR UNSPEC T 02/14/2016 Ot 250.40 DIAB W RENAL MANIFEST, TYPE II OR UNSPEC 02/14/2016 Ot 263.9 PROTEIN-NADIA MALNUTR NOS 02/14/2016 Ot 272.4 HYPERLIPIDEMIA NEC/NOS 02/14/2016 Ot 276.3 ALKALOSIS 02/14/2016 Ot 276.7 HYPERPOTASSEMIA 02/14/2016 Ot 285.21 ANEMIA IN CHRONIC KIDNEY DISEASE 02/14/2016 Ot 403.10 HYPTNSV CHR KID DIS, BENIGN, W CHR KD ST 02/14/2016 Ot 585.3 CHRONIC KIDNEY DISEASE, STAGE III (MODER 02/14/2016 Ot 588.81 SECONDARY HYPERPARATHYROIDISM (OF RENAL 02/14/2016 Ot 791.0 PROTEINURIA 02/14/2016 JT FIGUEROA MD Ot 244.8 ACQUIRED HYPOTHYROID NEC 02/14/2016 JT FIGUEROA MD Ot 246.8 DISORDERS OF THYROID NEC 02/14/2016 JT FIGUEROA MD Ot 250.93 DIAB W UNSPEC COMPL, TYPE I [JUVENILE TY 02/14/2016 LIZY WHITNEY Ot 250.00 DIAB VIGNESH WO COMPL, TYPE II OR UNSPEC TY 02/14/2016 LIZY WHITNEY Ot 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 02/14/2016 LIZY WHITNEY Ot 356.9 IDIO PERIPH NEURPTHY NOS 02/14/2016 LIZY WHITNEY Ot 585.3 CHRONIC KIDNEY DISEASE, STAGE III (MODER 02/14/2016 LIZY WHITNEY Ot V58.67 LONG-TERM (CURRENT) USE OF INSULIN 02/14/2016 LIZY WHITNEY Ot V58.69 OTH MED,LT,CURRENT USE 02/14/2016 HARRY SAMANO UNIT AIDE Ot D47.2 MONOCLONAL GAMMOPATHY 02/14/2016 HARRY SAMANO UNIT AIDE Ot E11.9 TYPE 2 DIABETES MELLITUS WITHOUT COMPLIC 02/14/2016 HARRY SAMANO UNIT AIDE Ot G60.9 HEREDITARY AND IDIOPATHIC NEUROPATHY, UN 02/14/2016 HARRY SAMANO UNIT AIDE Ot N18.3 CHRONIC KIDNEY DISEASE, STAGE 3 ( MODERAT 02/14/2016 HARRY SAMANO UNIT AIDE Ot Z79.4 WASH HELPER (CURRENT) USE OF INSULIN 02/14/2016 HARRY SAMANO UNIT AIDE Ot Z79.899 OTHER NURSING HOME (CURRENT) DRUG THERAPY 02/14/2016 MOISÉS GRACE G. PLASTIC PARTS FABRICATOR TRIMMER-C Ot D63.1 ANEMIA IN CHRONIC KIDNEY DISEASE 02/14/2016 MOISÉS GRACE GLatonya PLASTIC PARTS FABRICATOR TRIMMER-C Ot E11.29 TYPE 2 DIABETES MELLITUS W [facility] DIABETIC 02/14/2016 MOISÉS GRACE GLatonya PLASTIC PARTS FABRICATOR TRIMMER-C Ot E46 UNSPECIFIED PROTEIN-CALORIE MALNUTRITION 02/14/2016 MOISÉS GRACE G. PLASTIC PARTS FABRICATOR TRIMMER-C Ot E87.5 HYPERKALEMIA 02/14/2016 NEW GRACE G. PLASTIC PARTS FABRICATOR TRIMMER-C Ot I12.9 HYPERTENSIVE CHRONIC KIDNEY DISEASE W ST 02/14/2016 MOISÉS GRACE G. PLASTIC PARTS FABRICATOR TRIMMER-C Ot N18.3 CHRONIC KIDNEY DISEASE, STAGE 3 (MODERAT 02/14/2016 NEW GRACE G. PLASTIC PARTS FABRICATOR TRIMMER-C Ot N25.81 SECONDARY HYPERPARATHYROIDISM OF RENAL O 02/14/2016 MOISÉS GRACE GLatonya PLASTIC PARTS FABRICATOR TRIMMER-C Ot R80.9 PROTEINURIA, UNSPECIFIED 02/14/2016 CAROLINA PAYAN, JT Negrete Ot E03.8 OTHER SPECIFIED HYPOTHYROIDISM 02/14/2016 NEW GRACE G. PLASTIC PARTS FABRICATOR TRIMMER-C Ot D47.2 MONOCLONAL GAMMOPATHY 02/14/2016 NEW GRACE G. PLASTIC PARTS FABRICATOR TRIMMER-C Ot D61.818 OTHER PANCYTOPENIA 02/14/2016 NEW GRACE G. PLASTIC PARTS FABRICATOR TRIMMER-C Ot D63.1 ANEMIA IN CHRONIC KIDNEY DISEASE 02/14/2016 NEW GRACE G. PLASTIC PARTS FABRICATOR TRIMMER-C Ot E11.29 TYPE 2 DIABETES MELLITUS W [facility] DIABETIC 02/14/2016 NEW GRACE G. PLASTIC PARTS FABRICATOR TRIMMER-C Ot E44.1 MILD PROTEIN-[place] MALNUTRITION 02/14/2016 MOISÉS GRACE G. PLASTIC PARTS FABRICATOR TRIMMER-C Ot E78.5 HYPERLIPIDEMIA, UNSPECIFIED 02/14/2016 MOISÉS GRACE CortezLatonya PLASTIC PARTS FABRICATOR TRIMMER-C Ot E87.3 ALKALOSIS 02/14/2016 MOISÉS GRACE CortezLatonya PLASTIC PARTS FABRICATOR TRIMMER-C Ot E87.5 HYPERKALEMIA 02/14/2016 MOISÉS GRACE CortezLatonya PLASTIC PARTS FABRICATOR TRIMMER-C Ot I12.9 HYPERTENSIVE CHRONIC KIDNEY DISEASE W ST 02/14/2016 MOISÉS GRACE CortezLatonya PLASTIC PARTS FABRICATOR TRIMMER-C Ot N18.3 CHRONIC KIDNEY DISEASE, STAGE 3 (MODERAT 02/14/2016 MOISÉS GRACE CortezLatonya PLASTIC PARTS FABRICATOR TRIMMER-C Ot N25.81 SECONDARY HYPERPARATHYROIDISM OF RENAL O 02/14/2016 MOISÉS GRACE CortezLatonya PLASTIC PARTS FABRICATOR TRIMMER-C Ot R80.9 PROTEINURIA, UNSPECIFIED 02/14/2016 LIZY WHITNEY Ot D47.2 MONOCLONAL GAMMOPATHY 02/14/2016 LIZY WHITNEY N Ot 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 02/14/2016 LIZY WHITNEY Ot G60.9 HEREDITARY AND IDIOPATHIC NEUROPATHY, UN 02/14/2016 LIZY WHITNEY N Ot N18.3 CHRONIC KIDNEY DISEASE, STAGE 3 (MODERAT 02/14/2016 DEVONTELIZY MELVIN Ot Z79.4 WASH HELPER (CURRENT) USE OF INSULIN 02/14/2016 LIZY WHITNEY Ot Z79.899 OTHER WASH HELPER (CURRENT) DRUG THERAPY 03/16/2016 MOISÉS GRACE CortezLatonya PLASTIC PARTS FABRICATOR TRIMMER-C Ot D63.1 ANEMIA IN CHRONIC KIDNEY DISEASE 03/16/2016 MOISÉS GRACE CortezLatonya BAKER-C Ot E11.29 TYPE 2 DIABETES MELLITUS W OTH DIABETIC 03/16/2016 MOISÉS GRACE CortezLatonya BAKER-C Ot E78.5 HYPERLIPIDEMIA, UNSPECIFIED 03/16/2016 MOISÉS GRACE CortezLatonya PLASTIC PARTS FABRICATOR TRIMMER-C Ot N25.81 SECONDARY HYPERPARATHYROIDISM OF RENAL O 04/07/2016 RAINER MCGOVERN DO Ot S82.851A DISPLACED TRIMALLEOLAR FRACTURE OF RIGHT 04/07/2016 RAINER MCGOVERN DO Ot X58.XXXA EXPOSURE TO OTHER SPECIFIED FACTORS, INI 04/07/2016 RAINER MCGOVERN DO Ot Y99.8 OTHER EXTERNAL CAUSE STATUS 04/07/2016 RAINER MCGOVERN DO Ot Z79.01 NURSING HOME (CURRENT) USE OF ANTICOAGULANT 04/07/2016 FROILAN DO, RAINER F Ot S82.851A DISPLACED TRIMALLEOLAR FRACTURE OF RIGHT 04/07/2016 FROILAN DO, RAINER F Ot X58.XXXA EXPOSURE TO OTHER SPECIFIED FACTORS, INI 04/07/2016 FROILAN DO, RAINER F Ot Y99.8 OTHER EXTERNAL CAUSE STATUS 04/07/2016 FROILAN DO, RAINER F Ot Z79.01 WASH HELPER (CURRENT) USE OF ANTICOAGULANT 04/11/2016 NEW, GRACE Diego. PLASTIC PARTS FABRICATOR TRIMMER-C Ot D47.2 MONOCLONAL GAMMOPATHY 04/11/2016 NEW, GRACE G. PLASTIC PARTS FABRICATOR TRIMMER-C Ot D61.818 OTHER PANCYTOPENIA 04/11/2016 NEW, GRACE G. PLASTIC PARTS FABRICATOR TRIMMER-C Ot D63.1 ANEMIA IN CHRONIC KIDNEY DISEASE 04/11/2016 NEW, GRACE G. PLASTIC PARTS FABRICATOR TRIMMER-C Ot 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 04/11/2016 NEW, GRACE G. PLASTIC PARTS FABRICATOR TRIMMER-C Ot E44.1 MILD PROTEIN-[place] MALNUTRITION 04/11/2016 NEW, GRACE G. PLASTIC PARTS FABRICATOR TRIMMER-C Ot E78.5 HYPERLIPIDEMIA, UNSPECIFIED 04/11/2016 NEW, GRACE G. PLASTIC PARTS FABRICATOR TRIMMER-C Ot E87.3 ALKALOSIS 04/11/2016 NEW, GRACE G. PLASTIC PARTS FABRICATOR TRIMMER-C Ot E87.5 HYPERKALEMIA 04/11/2016 NEW, GRACE G. PLASTIC PARTS FABRICATOR TRIMMER-C Ot I12.9 HYPERTENSIVE CHRONIC KIDNEY DISEASE W ST 04/11/2016 NEW, GRACE G. PLASTIC PARTS FABRICATOR TRIMMER-C Ot N18.3 CHRONIC KIDNEY DISEASE, STAGE 3 (MODERAT 04/11/2016 NEW, GRACE G. PLASTIC PARTS FABRICATOR TRIMMER-C Ot N25.81 SECONDARY HYPERPARATHYROIDISM OF RENAL O 04/11/2016 NEW, GRACE G. PLASTIC PARTS FABRICATOR TRIMMER-C Ot R80.9 PROTEINURIA, UNSPECIFIED 04/11/2016 FROILAN DO, RAINER F Ot S82.851A DISPLACED TRIMALLEOLAR FRACTURE OF RIGHT 04/11/2016 FROILAN DO, RAINER F Ot X58.XXXA EXPOSURE TO OTHER SPECIFIED FACTORS, INI 04/11/2016 FROILAN DO, RAINER F Ot Y99.8 OTHER EXTERNAL CAUSE STATUS 04/11/2016 FROILAN DO, RAINER F Ot Z79.01 WASH HELPER (CURRENT) USE OF ANTICOAGULANT 04/19/2016 RADHA GUPTA MD Ot D64.9 ANEMIA, UNSPECIFIED 04/19/2016 RADHA GUPTA MD Ot E10.42 TYPE 1 DIABETES MELLITUS WITH DIABETIC P 04/19/2016 RADHA GUPTA MD Ot E78.00 PURE HYPERCHOLESTEROLEMIA, UNSPECIFIED 04/19/2016 RADHA GUPTA MD Ot F32.9 MAJOR DEPRESSIVE DISORDER, SINGLE EPISOD 04/19/2016 RADHA GUPTA MD Ot F41.9 ANXIETY DISORDER, UNSPECIFIED 04/19/2016 RADHA GUPTA MD Ot I10 ESSENTIAL (PRIMARY) HYPERTENSION 04/19/2016 RADHA GUPTA MD Ot I25.10 ATHSCL HEART DISEASE OF [place] CORONARY 04/19/2016 RADHA GUPTA MD Ot I25.2 OLD MYOCARDIAL INFARCTION 04/19/2016 RADHA GUPTA MD Ot I73.9 PERIPHERAL VASCULAR DISEASE, UNSPECIFIED 04/19/2016 RADHA GUPTA MD Ot K59.03 DRUG INDUCED CONSTIPATION 04/19/2016 RADHA GUPTA MD Ot N28.9 DISORDER OF KIDNEY AND URETER, UNSPECIFI 04/19/2016 RADHA GUPTA MD Ot T40.2X5A ADVERSE EFFECT OF OTHER OPIOIDS, INITIAL 04/19/2016 RADHA GUPTA MD Ot Z47.81 ENCOUNTER FOR ORTHOPEDIC AFTERCARE [place] 04/19/2016 RADHA GUPTA MD Ot Z79.4 NURSING HOME (CURRENT) USE OF INSULIN 04/19/2016 RADHA GUPTA MD Ot Z86.718 PERSONAL HISTORY OF OTHER VENOUS THROMBO 04/19/2016 RADHA GUPTA MD Ot Z89.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 04/19/2016 RADHA GUPTA MD Ot Z95.1 PRESENCE OF AORTOCORONARY BYPASS GRAFT 04/23/2016 RADHA GUPTA MD Ot D64.9 ANEMIA, UNSPECIFIED 04/23/2016 RADHA GUPTA MD Ot E10.42 TYPE 1 DIABETES MELLITUS WITH DIABETIC P 04/23/2016 RADHA GUPTA MD Ot E78.00 PURE HYPERCHOLESTEROLEMIA, UNSPECIFIED 04/23/2016 RADHA GUPTA MD Ot F32.9 MAJOR DEPRESSIVE DISORDER, SINGLE EPISOD 04/23/2016 RADHA GUPTA MD Ot F41.9 ANXIETY DISORDER, UNSPECIFIED 04/23/2016 RADHA GUPTA MD Ot I10 ESSENTIAL (PRIMARY) HYPERTENSION 04/23/2016 RADHA GUPTA MD Ot I25.10 ATHSCL HEART DISEASE OF [place] CORONARY 04/23/2016 RADHA GUPTA MD Ot I25.2 OLD MYOCARDIAL INFARCTION 04/23/2016 RADHA GUPTA MD Ot I73.9 PERIPHERAL VASCULAR DISEASE, UNSPECIFIED 04/23/2016 RADHA GUPTA MD Ot K59.03 DRUG INDUCED CONSTIPATION 04/23/2016 RADHA GUPTA MD Ot N28.9 DISORDER OF KIDNEY AND URETER, UNSPECIFI 04/23/2016 RADHA GUPTA MD Ot T40.2X5A ADVERSE EFFECT OF OTHER OPIOIDS, INITIAL 04/23/2016 RADHA GUPTA MD Ot Z47.81 ENCOUNTER FOR ORTHOPEDIC AFTERCARE [place] 04/23/2016 RADHA GUPTA MD Ot Z79.4 WASH HELPER (CURRENT) USE OF INSULIN 04/23/2016 RADHA GUPTA MD Ot Z86.718 PERSONAL HISTORY OF OTHER VENOUS THROMBO 04/23/2016 RADHA GUPTA MD Ot Z89.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 04/23/2016 RADHA GUPTA MD Ot Z95.1 PRESENCE OF AORTOCORONARY BYPASS GRAFT 04/26/2016 RADHA GUPTA MD Ot D64.9 ANEMIA, UNSPECIFIED 04/26/2016 RADHA GUPTA MD E Ot E10.42 TYPE 1 DIABETES MELLITUS WITH DIABETIC P 04/26/2016 RADHA GUPTA MD E Ot E78.00 PURE HYPERCHOLESTEROLEMIA, UNSPECIFIED 04/26/2016 RADHA GUPTA MD Ot F32.9 MAJOR DEPRESSIVE DISORDER, SINGLE EPISOD 04/26/2016 YOVANI GUPTA MDIC E Ot F41.9 ANXIETY DISORDER, UNSPECIFIED 04/26/2016 YOVANI GUPTA MDIC E Ot I10 ESSENTIAL (PRIMARY) HYPERTENSION 04/26/2016 RADHA GUPTA MD E Ot I25.10 ATHSCL HEART DISEASE OF [place] CORONARY 04/26/2016 RADHA GUPTA MD E Ot I25.2 OLD MYOCARDIAL INFARCTION 04/26/2016 RADHA GUPTA MD Ot I73.9 PERIPHERAL VASCULAR DISEASE, UNSPECIFIED 04/26/2016 RADHA GUPTA MD Ot K59.03 DRUG INDUCED CONSTIPATION 04/26/2016 RADHA GUPTA MD Ot N28.9 DISORDER OF KIDNEY AND URETER, UNSPECIFI 04/26/2016 RADHA GUPTA MD Ot T40.2X5A ADVERSE EFFECT OF OTHER OPIOIDS, INITIAL 04/26/2016 RADHA GUPTA MD Ot Z47.81 ENCOUNTER FOR ORTHOPEDIC AFTERCARE [place] 04/26/2016 RADHA GUPTA MD Ot Z79.4 NURSING HOME (CURRENT) USE OF INSULIN 04/26/2016 RADHA GUPTA MD Ot Z86.718 PERSONAL HISTORY OF OTHER VENOUS THROMBO 04/26/2016 RADHA GUPTA MD Ot Z89.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 04/26/2016 RADHA GUPTA MD Ot Z95.1 PRESENCE OF AORTOCORONARY BYPASS GRAFT 04/27/2016 RADHA GUPTA MD Ot D64.9 ANEMIA, UNSPECIFIED 04/27/2016 RADHA GUPTA MD Ot E10.42 TYPE 1 DIABETES MELLITUS WITH DIABETIC P 04/27/2016 RADHA GUPTA MD Ot E78.00 PURE HYPERCHOLESTEROLEMIA, UNSPECIFIED 04/27/2016 RADHA GUPTA MD Ot F32.9 MAJOR DEPRESSIVE DISORDER, SINGLE EPISOD 04/27/2016 RADHA GUPTA MD Ot F41.9 ANXIETY DISORDER, UNSPECIFIED 04/27/2016 RADHA GUPTA MD Ot I10 ESSENTIAL (PRIMARY) HYPERTENSION 04/27/2016 RADHA GUPTA MD Ot I25.10 ATHSCL HEART DISEASE OF [place] CORONARY 04/27/2016 RADHA GUPTA MD Ot I25.2 OLD MYOCARDIAL INFARCTION 04/27/2016 RADHA GUPTA MD Ot I73.9 PERIPHERAL VASCULAR DISEASE, UNSPECIFIED 04/27/2016 RADHA GUPTA MD Ot K59.03 DRUG INDUCED CONSTIPATION 04/27/2016 RADHA GUPTA MD Ot N28.9 DISORDER OF KIDNEY AND URETER, UNSPECIFI 04/27/2016 RADHA GUPTA MD Ot T40.2X5A ADVERSE EFFECT OF OTHER OPIOIDS, INITIAL 04/27/2016 RADHA GUPTA MD Ot Z47.81 ENCOUNTER [facility] 04/27/2016 RADHA GUPTA MD Ot Z79.4 NURSING HOME (CURRENT) USE OF INSULIN 04/27/2016 RADHA GUPTA MD Ot Z86.718 PERSONAL HISTORY OF OTHER VENOUS THROMBO 04/27/2016 RADHA GUPTA MD Ot Z89.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 04/27/2016 RADHA GUPTA MD Ot Z95.1 PRESENCE OF AORTOCORONARY BYPASS GRAFT 04/28/2016 RAINER MCGOVERN DO Ot S82.851A DISPLACED TRIMALLEOLAR FRACTURE OF RIGHT 04/28/2016 RAINER MCGOVERN DO Ot X58.XXXA EXPOSURE TO OTHER SPECIFIED FACTORS, INI 04/28/2016 RAINER MCGOVERN DO Ot Y99.8 OTHER EXTERNAL CAUSE STATUS 04/28/2016 RAINER MCGOVERN DO Ot Z79.01 WASH HELPER (CURRENT) USE OF ANTICOAGULANT 07/22/2016 LIZY WHITNEY N Ot D47.2 MONOCLONAL GAMMOPATHY 07/22/2016 LIZY WHITNEY N Ot 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 07/22/2016 LIZY WHITNEY N Ot G60.9 HEREDITARY AND IDIOPATHIC NEUROPATHY, UN 07/22/2016 LIZY WHITNEY N Ot N18.3 CHRONIC KIDNEY DISEASE, STAGE 3 (MODERAT 07/22/2016 LIZY WHITNEY N Ot Z79.4 NURSING HOME (CURRENT) USE OF INSULIN 07/22/2016 LIZY WHITNEY N Ot Z79.899 OTHER WASH HELPER (CURRENT) DRUG THERAPY 08/04/2016 LIZY WHITNEY N Ot M84.371A STRESS FRACTURE, RIGHT ANKLE, INITIAL EN 08/09/2016 DEVONTELIZY N Ot M84.371A STRESS FRACTURE, RIGHT ANKLE, INITIAL EN 08/16/2016 DEVONTE, LIZY N Ot M84.371A STRESS FRACTURE, RIGHT ANKLE, INITIAL EN 08/24/2016 DEVONTELIZY MELVIN N Ot D47.2 MONOCLONAL GAMMOPATHY 08/24/2016 DEVONTE BOBAN N Ot D63.8 ANEMIA IN OTHER CHRONIC DISEASES CLASSIF 08/24/2016 DEVONTELIZY MELVIN N Ot 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 08/24/2016 LIZY WHITNEY N Ot G60.9 HEREDITARY AND IDIOPATHIC NEUROPATHY, UN 08/24/2016 LIZY WHITNEY N Ot N18.3 CHRONIC KIDNEY DISEASE, STAGE 3 (MODERAT 08/24/2016 DEVONTELIZY MELVIN N Ot Z79.4 NURSING HOME (CURRENT) USE OF INSULIN 08/24/2016 DEVONTE LIZY N Ot Z79.899 OTHER NURSING HOME (CURRENT) DRUG THERAPY 09/06/2016 DEVONTE BOBREGINA N Ot M84.371A STRESS FRACTURE, RIGHT ANKLE, INITIAL EN 09/15/2016 DEVONTERONENAN N Ot D47.2 MONOCLONAL GAMMOPATHY 09/15/2016 DEVONTE, BOBAN N Ot D63.8 ANEMIA IN OTHER CHRONIC DISEASES CLASSIF 09/15/2016 LIZY WHITNEY Ot 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 09/15/2016 LIZY WHITNEY Ot G60.9 HEREDITARY AND IDIOPATHIC NEUROPATHY, UN 09/15/2016 LIZY WHITNEY Ot N18.3 CHRONIC KIDNEY DISEASE, STAGE 3 (MODERAT 09/15/2016 LIZY WHITNEY Ot Z79.4 NURSING HOME (CURRENT) USE OF INSULIN 09/15/2016 LIZY WHITNEY Ot Z79.899 OTHER NURSING HOME (CURRENT) DRUG THERAPY 09/19/2016 Ot 250.40 DIAB W RENAL MANIFEST, TYPE II OR UNSPEC 09/19/2016 Ot 263.9 PROTEIN-NADIA MALNUTR NOS 09/19/2016 Ot 276.2 ACIDOSIS 09/19/2016 Ot 276.7 HYPERPOTASSEMIA 09/19/2016 Ot 285.21 ANEMIA IN CHRONIC KIDNEY DISEASE 09/19/2016 Ot 403.90 HYPTNSV CHR KID DIS, UNSPEC, W CHR KD ST 09/19/2016 Ot 585.3 CHRONIC KIDNEY DISEASE, STAGE III (MODER 09/19/2016 Ot 588.81 SECONDARY HYPERPARATHYROIDISM (OF RENAL 09/19/2016 Ot 791.0 PROTEINURIA 09/19/2016 Ot 244.9 HYPOTHYROIDISM NOS 09/19/2016 Ot 250.01 DIAB VIGNESH WO COMPL, TYPE I [JUVENILE TYP 09/19/2016 Ot 272.4 HYPERLIPIDEMIA NEC/NOS 09/19/2016 Ot 401.9 HYPERTENSION NOS 09/19/2016 HARRY SAMANO UNIT AIDE Ot 250.00 DIAB VIGNESH WO COMPL, TYPE II OR UNSPEC TY 09/19/2016 HARRY SAMANO UNIT AIDE Ot 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 09/19/2016 HARRY SAMANO UNIT AIDE Ot 356.9 IDIO PERIPH NEURPTHY NOS 09/19/2016 HARRY SAMANO UNIT AIDE Ot 585.3 CHRONIC KIDNEY DISEASE, STAGE III ( MODER 09/19/2016 HARRY SAMANO UNIT AIDE Ot V58.67 LONG-TERM (CURRENT) USE OF INSULIN 09/19/2016 HARRY SAMANO UNIT AIDE Ot V58.69 OTH MED,LT,CURRENT USE 09/19/2016 GRACE CURIEL NP-C Ot 250.40 DIAB W RENAL MANIFEST, TYPE II OR UNSPEC 09/19/2016 NEW, GRACE G. [employer] FABRICATOR TRIMMER-C Ot 263.9 PROTEIN-NADIA MALNUTR NOS 09/19/2016 GRACE CURIEL PLASTIC [employer]S FABRICATOR TRIMMER-C Ot 272.4 HYPERLIPIDEMIA NEC/NOS 09/19/2016 GRACE CURIEL. P[employer]S FABRICATOR TRIMMER-C Ot 276.2 ACIDOSIS 09/19/2016 MOISÉS GRACE G. P[employer]S FABRICATOR TRIMMER-C Ot 276.7 HYPERPOTASSEMIA 09/19/2016 GRACE CURIEL P[employer]S FABRICATOR TRIMMER-C Ot 285.21 ANEMIA IN CHRONIC KIDNEY DISEASE 09/19/2016 GRACE CURIEL P[employer] FABRICATOR TRIMMER-C Ot 403.10 HYPTNSV CHR KID DIS, BENIGN, W CHR KD ST 09/19/2016 GRACE CURIEL P[employer] FABRICATOR TRIMMER-C Ot 585.3 CHRONIC KIDNEY DISEASE, STAGE III (MODER 09/19/2016 GRACE CURIEL P[employer] FABRICATOR TRIMMER-C Ot 588.81 SECONDARY HYPERPARATHYROIDISM (OF RENAL 09/19/2016 GRACE CURIEL PLAST[employer]S FABRICATOR TRIMMER-C Ot 791.0 PROTEINURIA 09/19/2016 HARRY SAMANO UNIT AIDE Ot 250.00 DIAB VIGNESH WO COMPL, TYPE II OR UNSPEC TY 09/19/2016 HARRY SAMANO UNIT AIDE Ot 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 09/19/2016 HARRY SAMANO UNIT AIDE Ot 356.9 IDIO PERIPH NEURPTHY NOS 09/19/2016 HARRY SAMANO UNIT AIDE Ot 585.3 CHRONIC KIDNEY DISEASE, STAGE III ( MODER 09/19/2016 HARRY SAMANO UNIT AIDE Ot V58.67 LONG-TERM (CURRENT) USE OF INSULIN 09/19/2016 HARRY SAMANO UNIT AIDE Ot V58.69 OTH MED,LT,CURRENT USE 09/19/2016 JT FIGUEROA MD Ot 244.9 HYPOTHYROIDISM NOS 09/19/2016 JT FIGUEROA MD Ot 250.01 DIAB VIGNSEH WO COMPL, TYPE I [JUVENILE TYP 09/19/2016 JT FIGUEROA MD Ot 272.4 HYPERLIPIDEMIA NEC/NOS 09/19/2016 GRACE CURIEL [employer] FABRICATOR TRIMMER-C Ot 250.40 DIAB W RENAL MANIFEST, TYPE II OR UNSPEC 09/19/2016 GRACE CURIEL [employer] FABRICATOR TRIMMER-C Ot 263.9 PROTEIN-NADIA MALNUTR NOS 09/19/2016 GRACE CURIEL [employer] FABRICATOR TRIMMER-C Ot 272.4 HYPERLIPIDEMIA NEC/NOS 09/19/2016 NEW, GRACE Diego. [employer] FABRICATOR TRIMMER-C Ot 276.7 HYPERPOTASSEMIA 09/19/2016 NEW, GRACE G. [employer] FABRICATOR TRIMMER-C Ot 285.21 ANEMIA IN CHRONIC KIDNEY DISEASE 09/19/2016 NEW, GRACE Cortez. [employer] FABRICATOR TRIMMER-C Ot 403.10 HYPTNSV CHR KID DIS, BENIGN, W CHR KD ST 09/19/2016 NEW, GRACE Cortez. [employer] FABRICATOR TRIMMER-C Ot 585.3 CHRONIC KIDNEY DISEASE, STAGE III (MODER 09/19/2016 NEW, GRACE G. [employer] FABRICATOR TRIMMER-C Ot 588.81 SECONDARY HYPERPARATHYROIDISM (OF RENAL 09/19/2016 NEW, GRACE G. [employer] FABRICATOR TRIMMER-C Ot 791.0 PROTEINURIA 09/19/2016 NEW, GRACE G. [employer] FABRICATOR TRIMMER-C Ot 250.40 DIAB W RENAL MANIFEST, TYPE II OR UNSPEC 09/19/2016 NEW, GRACE G. [employer] FABRICATOR TRIMMER-C Ot 263.9 PROTEIN-NADIA MALNUTR NOS 09/19/2016 NEW, GRACE G. [employer] FABRICATOR TRIMMER-C Ot 272.4 HYPERLIPIDEMIA NEC/NOS 09/19/2016 NEW, GRACE G. [employer] FABRICATOR TRIMMER-C Ot 276.3 ALKALOSIS 09/19/2016 NEW, GRACE G. [employer] FABRICATOR TRIMMER-C Ot 276.7 HYPERPOTASSEMIA 09/19/2016 NEW, GRACE G. [employer] FABRICATOR TRIMMER-C Ot 285.21 ANEMIA IN CHRONIC KIDNEY DISEASE 09/19/2016 NEW, GRACE G. [employer] FABRICATOR TRIMMER-C Ot 403.10 HYPTNSV CHR KID DIS, BENIGN, W CHR KD ST 09/19/2016 NEW, GRACE Cortez. [employer] FABRICATOR TRIMMER-C Ot 585.3 CHRONIC KIDNEY DISEASE, STAGE III (MODER 09/19/2016 NEW, GRACE Diego. [employer] FABRICATOR TRIMMER-C Ot 588.81 SECONDARY HYPERPARATHYROIDISM (OF RENAL 09/19/2016 NEW, GRACE G. [employer] FABRICATOR TRIMMER-C Ot 791.0 PROTEINURIA 09/19/2016 Ot 250.40 DIAB W RENAL MANIFEST, TYPE II OR UNSPEC 09/19/2016 Ot 263.9 PROTEIN-NADIA MALNUTR NOS 09/19/2016 Ot 272.4 HYPERLIPIDEMIA NEC/NOS 09/19/2016 Ot 276.3 ALKALOSIS 09/19/2016 Ot 276.7 HYPERPOTASSEMIA 09/19/2016 Ot 285.21 ANEMIA IN CHRONIC KIDNEY DISEASE 09/19/2016 Ot 403.10 HYPTNSV CHR KID DIS, BENIGN, W CHR KD ST 09/19/2016 Ot 585.3 CHRONIC KIDNEY DISEASE, STAGE III (MODER 09/19/2016 Ot 588.81 SECONDARY HYPERPARATHYROIDISM (OF RENAL 09/19/2016 Ot 791.0 PROTEINURIA 09/19/2016 Ot 244.9 HYPOTHYROIDISM NOS 09/19/2016 Ot 250.92 DIAB W UNSPEC COMPL, TYPE II OR UNSPEC T 09/19/2016 Ot 250.40 DIAB W RENAL MANIFEST, TYPE II OR UNSPEC 09/19/2016 Ot 263.9 PROTEIN-NADIA MALNUTR NOS 09/19/2016 Ot 272.4 HYPERLIPIDEMIA NEC/NOS 09/19/2016 Ot 276.3 ALKALOSIS 09/19/2016 Ot 276.7 HYPERPOTASSEMIA 09/19/2016 Ot 285.21 ANEMIA IN CHRONIC KIDNEY DISEASE 09/19/2016 Ot 403.10 HYPTNSV CHR KID DIS, BENIGN, W CHR KD ST 09/19/2016 Ot 585.3 CHRONIC KIDNEY DISEASE, STAGE III (MODER 09/19/2016 Ot 588.81 SECONDARY HYPERPARATHYROIDISM (OF RENAL 09/19/2016 Ot 791.0 PROTEINURIA 09/19/2016 JT FIGUEROA MD Ot 244.8 ACQUIRED HYPOTHYROID NEC 09/19/2016 JT FIGUEROA MD Ot 246.8 DISORDERS OF THYROID NEC 09/19/2016 JT FIGUEROA MD Ot 250.93 DIAB W UNSPEC COMPL, TYPE I [JUVENILE TY 09/19/2016 LIZY WHITNEY Ot 250.00 DIAB VIGNESH WO COMPL, TYPE II OR UNSPEC TY 09/19/2016 LIZY WHITNEY Ot 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 09/19/2016 LIZY WHITNEY Ot 356.9 IDIO PERIPH NEURPTHY NOS 09/19/2016 LIZY WHITNEY Ot 585.3 CHRONIC KIDNEY DISEASE, STAGE III (MODER 09/19/2016 LIZY WHITNEY Ot V58.67 LONG-TERM (CURRENT) USE OF INSULIN 09/19/2016 LIZY WHITNEY Ot V58.69 OTH MED,LT,CURRENT USE 09/19/2016 HARRY SAMANOP Ot D47.2 MONOCLONAL GAMMOPATHY 09/19/2016 HARRY SAMANO UNIT AIDE Ot E11.9 TYPE 2 DIABETES MELLITUS WITHOUT COMPLIC 09/19/2016 HARRY SAMANO UNIT AIDE Ot G60.9 HEREDITARY AND IDIOPATHIC NEUROPATHY, UN 09/19/2016 HARRY SAMANO UNIT AIDE Ot N18.3 CHRONIC KIDNEY DISEASE, STAGE 3 ( MODERAT 09/19/2016 HARRY SAMANO UNIT AIDE Ot Z79.4 WASH HELPER (CURRENT) USE OF INSULIN 09/19/2016 HARRY SAMANO UNIT AIDE Ot Z79.899 OTHER WASH HELPER (CURRENT) DRUG THERAPY 09/19/2016 NEW GRACE G. [employer] FABRICATOR TRIMMER-C Ot D63.1 ANEMIA IN CHRONIC KIDNEY DISEASE 09/19/2016 NEW, GRACE G. [employer] FABRICATOR TRIMMER-C Ot E11.29 TYPE 2 DIABETES MELLITUS W [facility] DI[facility] 09/19/2016 NEW, GRACE G. [employer] FABRICATOR TRIMMER-C Ot E46 UNSPECIFIED PROTEIN-CALORIE MALNUTRITION 09/19/2016 NEW, GRACE G. [employer] FABRICATOR TRIMMER-C Ot E87.5 HYPERKALEMIA 09/19/2016 NEW, GRACE G. [employer] FABRICATOR TRIMMER-C Ot I12.9 HYPERTENSIVE CHRONIC KIDNEY DISEASE W 09/19/2016 NEW GRACE G. [employer] FABRICATOR TRIMMER-C Ot N18.3 CHRONIC KIDNEY DISEASE, STAGE 3 (MODERAT 09/19/2016 NEW, GRACE G. [employer] FABRICATOR TRIMMER-C Ot N25.81 SECONDARY HYPERPARATHYROIDISM OF RENAL O 09/19/2016 NEW, GRACE G. [employer] FABRICATOR TRIMMER-C Ot R80.9 PROTEINURIA, UNSPECIFIED 09/19/2016 CAROLINA PAYAN, JT Negrete Ot E03.8 OTHER SPECIFIED HYPOTHYROIDISM 09/19/2016 NEW, GRACE G. P[employer] FABRICATOR TRIMMER-C Ot D47.2 MONOCLONAL GAMMOPATHY 09/19/2016 NEW, GRACE G. [employer] FABRICATOR TRIMMER-C Ot D61.818 OTHER PANCYTOPENIA 09/19/2016 NEW, GRACE G. P[employer] FABRICATOR TRIMMER-C Ot D63.1 ANEMIA IN CHRONIC KIDNEY DISEASE 09/19/2016 NEW, GRACE G. [employer] FABRICATOR TRIMMER-C Ot E11.29 TYPE 2 DIABETES MELLITUS W [facility] DIABETIC 09/19/2016 NEW, GRACE G. [employer] FABRICATOR TRIMMER-C Ot E44.1 MILD PROTEIN-CALORIE MALNUTRITION 09/19/2016 NEW, GRACE G. [employer] FABRICATOR TRIMMER-C Ot E78.5 HYPERLIPIDEMIA, UNSPECIFIED 09/19/2016 NEW, GRACE G. [employer] FABRICATOR TRIMMER-C Ot E87.3 ALKALOSIS 09/19/2016 NEW, GRACE G. [employer] FABRICATOR TRIMMER-C Ot E87.5 HYPERKALEMIA 09/19/2016 NEW, GRACE G. P[employer]S FABRICATOR TRIMMER-C Ot I12.9 HYPERTENSIVE CHRONIC KIDNEY DISEASE W ST 09/19/2016 NEW, GRACE Diego. [employer] FABRICATOR TRIMMER-C Ot N18.3 CHRONIC KIDNEY DISEASE, STAGE 3 (MODERAT 09/19/2016 NEW GRACE G. [employer] FABRICATOR TRIMMER-C Ot N25.81 SECONDARY HYPERPARATHYROIDISM OF RENAL O 09/19/2016 NEWGRACE G. PLASTIC PARTS FABRICATOR TRIMMER-C Ot R80.9 PROTEINURIA, UNSPECIFIED 09/19/2016 RONEN WHITNEYREGINA N Ot D47.2 MONOCLONAL GAMMOPATHY 09/19/2016 DEVONTE BOBREGINA N Ot D63.8 ANEMIA IN OTHER CHRONIC DISEASES CLASSIF 09/19/2016 DEVONTE BOBREGINA N Ot 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 09/19/2016 RONEN WHITNEYREGINA N Ot G60.9 HEREDITARY AND IDIOPATHIC NEUROPATHY, UN 09/19/2016 DEVONTE BOBREGINA N Ot N18.3 CHRONIC KIDNEY DISEASE, STAGE 3 (MODERAT 09/19/2016 LIZY WHITNEY N Ot Z79.4 WASH HELPER (CURRENT) USE OF INSULIN 09/19/2016 RONEN WHITNEYREGINA N Ot Z79.899 OTHER NURSING HOME (CURRENT) DRUG THERAPY 09/19/2016 NEWGRACE PLASTIC PARTS FABRICATOR TRIMMER-C Ot D47.2 MONOCLONAL GAMMOPATHY 09/19/2016 NEW GRACE G. P[employer]S FABRICATOR TRIMMER-C Ot D61.818 OTHER PANCYTOPENIA 09/19/2016 NEW GRACE G. P[employer] FABRICATOR TRIMMER-C Ot D63.1 ANEMIA IN CHRONIC KIDNEY DISEASE 09/19/2016 NEWGRACE GLatonya PLASTIC PARTS FABRICATOR TRIMMER-C Ot 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 09/19/2016 NEW, GRACE G. [employer] FABRICATOR TRIMMER-C Ot E44.1 MILD PROTEIN-CALORIE MALNUTRITION 09/19/2016 NEW, GRACE G. P[employer]S FABRICATOR TRIMMER-C Ot E78.5 HYPERLIPIDEMIA, UNSPECIFIED 09/19/2016 NEW, GRACE G. [employer]S FABRICATOR TRIMMER-C Ot E87.3 ALKALOSIS 09/19/2016 NEW, GRACE G. [employer] FABRICATOR TRIMMER-C Ot E87.5 HYPERKALEMIA 09/19/2016 NEW, GRACE G. P[employer]S FABRICATOR TRIMMER-C Ot I12.9 HYPERTENSIVE CHRONIC KIDNEY DISEASE W ST 09/19/2016 NEW GRACE G. P[employer]S FABRICATOR TRIMMER-C Ot N18.3 CHRONIC KIDNEY DISEASE, STAGE 3 (MODERAT 09/19/2016 NEW, GRACE G. P[employer] FABRICATOR TRIMMER-C Ot N25.81 SECONDARY HYPERPARATHYROIDISM OF RENAL O 09/19/2016 MOISÉSGRACE PLASTIC PARTS FABRICATOR TRIMMER-C Ot R80.9 PROTEINURIA, UNSPECIFIED 09/19/2016 RAINER MCGOVERN DO Ot S82.851A DISPLACED TRIMALLEOLAR FRACTURE OF RIGHT 09/19/2016 RAINER MCGOVERN DO Ot X58.XXXA EXPOSURE TO OTHER SPECIFIED FACTORS, INI 09/19/2016 RAINER MCGOVERN DO Ot Y99.8 OTHER EXTERNAL CAUSE STATUS 09/19/2016 RAINER MCGOVERN DO Ot Z79.01 NURSING HOME (CURRENT) USE OF ANTICOAGULANT 09/19/2016 LIZY WHITNEY Peña Ot M84.371A STRESS FRACTURE, RIGHT ANKLE, INITIAL EN 09/20/2016 CAROLINA PAYAN, JT Negrete Ot E03.4 ATROPHY OF THYROID (ACQUIRED) 09/20/2016 CAROLINA PAYAN, JT Negrete Ot E10.8 TYPE 1 DIABETES MELLITUS WITH UNSPECIFIE Procedures Results Test Result Range Automated blood complete blood count (hemogram) panel - 03/16/16 08:06 Blood leukocytes automated count (number/volume) 5.7 10*3/ uL 4.3-11.0 Blood erythrocytes automated count (number/volume) 4.14 10*6 /uL 4.35-5.85 Venous blood hemoglobin measurement (mass/volume) 12.9 g/dL 13.3-17.7 Blood hematocrit (volume fraction) 38 % 40-54 Automated erythrocyte mean corpuscular volume 92 [foz_us] 80-99 Automated erythrocyte mean corpuscular hemoglobin (mass per erythrocyte) 31 pg 25-34 Automated erythrocyte mean corpuscular hemoglobin concentration measurement ( mass/volume) 34 g/dL 32-36 Automated erythrocyte distribution width ratio 13.0 % 10.0-14.5 Automated blood platelet count (count/volume) 195 10*3/uL 130-400 Automated blood platelet mean volume measurement 9.4 [foz_us ] 7.4-10.4 Complete urinalysis with reflex to culture - 03/16/16 08:06 Urine color determination YELLOW NRG Urine clarity determination CLEAR NRG Urine pH measurement by test strip 5 5- 9 Specific gravity of urine by test strip 1.015 1.016-1.022 Urine protein assay by test strip, semi-quantitative NEGATIVE NEGATIVE Urine glucose detection by automated test strip NEGATIVE NEGATIVE Erythrocytes detection in urine sediment by light microscopy NEGATIVE NEGATIVE Urine ketones detection by automated test strip NEGATIVE NEGATIVE Urine nitrite detection by test strip NEGATIVE NEGATIVE Urine total bilirubin detection by test strip NEGATIVE NEGATIVE Urine urobilinogen measurement by automated test strip (mass/volume) NORMAL NORMAL Urine leukocyte esterase detection by dipstick NEGATIVE NEGATIVE Automated urine sediment erythrocyte count by microscopy (number/high power field) NONE NRG Automated urine sediment leukocyte count by microscopy (number/high power field ) NONE NRG Bacteria detection in urine sediment by light microscopy NEGATIVE NRG Squamous epithelial cells detection in urine sediment by light microscopy RARE NRG Crystals detection in urine sediment by light microscopy NONE NRG Casts detection in urine sediment by light microscopy NONE NRG Mucus detection in urine sediment by light microscopy NEGATIVE NRG Complete urinalysis with reflex to culture NO NRG Serum or plasma renal function panel (Na, K, Cl, CO2, BUN, Cr, glucose,Ca, phos , alb) - 03/16/16 08:06 Serum or plasma sodium measurement (moles/volume) 140 mmol/ L 135-145 Serum or plasma potassium measurement (moles/volume) 3.8 mmol/L 3.6-5.0 Serum or plasma chloride measurement (moles/volume) 101 mmol /L 98-107 Carbon dioxide 29 mmol/L 21-32 Serum or plasma anion gap determination (moles/volume) 10 mmol/L 5-14 Serum or plasma urea nitrogen measurement (mass/volume) 20 mg/dL 7-18 Serum or plasma creatinine measurement (mass/volume) 1.28 mg /dL 0.60-1.30 Serum or plasma urea nitrogen/creatinine mass ratio 16 NRG Serum or plasma creatinine measurement with calculation of estimated glomerular filtration rate 57 NRG Serum or plasma glucose measurement (mass/volume) 50 mg/dL 70-105 Serum or plasma calcium measurement (mass/volume) 9.1 mg/dL 8.5-10.1 Serum or plasma albumin measurement (mass/volume) 3.8 g/dL 3.2-4.5 Serum or plasma phosphate measurement (mass/volume) 3.5 mg/ dL 2.3-4.7 Lipid 1996 panel - 03/16/16 08:06 Serum or plasma triglyceride measurement (mass/volume) 105 mg/dL <150 Serum or plasma cholesterol measurement (mass/volume) 169 mg /dL < 200 Serum or plasma cholesterol in HDL measurement (mass/volume) 56 mg/dL 40-60 Cholesterol in LDL [mass/volume] in serum or plasma by direct assay 86 mg/dL 1-129 Serum or plasma cholesterol in VLDL measurement (mass/volume) 21 mg/dL 5-40 Urine protein/creatinine mass ratio - 03/16/16 08:06 Urine protein measurement (mass/volume) < mg/dL 6-12 Urine creatinine measurement (mass/volume) 33 mg/dL 30-125 Urine protein/creatinine mass ratio TNP NRG Hemoglobin A1c - 03/16/16 08:06 Hemoglobin A1c 6.2 % 4.5-6.2 Serum iron and total iron binding capacity panel - 03/16/16 08:06 Serum or plasma iron measurement (mass/volume) 64 % 40-180 Total iron binding capacity and transferrin saturation measurement 40 % 15-50 Iron binding capacity [mass/volume] in serum or plasma 162 % 280-380 UIBC (unsaturated iron binding capacity) 98 % 55-450 Serum or plasma ferritin measurement (mass/volume) 1143 % 25-300 25-hydroxyvitamin D measurement - 03/16/16 08:06 25-hydroxy vitamin D measurement 32 % 30- 100 Complete blood count (CBC) with automated white blood cell (WBC) differential - 04/07/16 13:45 Blood leukocytes automated count (number/volume) 5.9 10*3/ uL 4.3-11.0 Blood erythrocytes automated count (number/volume) 3.93 10*6 /uL 4.35-5.85 Venous blood hemoglobin measurement (mass/volume) 12.4 g/dL 13.3-17.7 Blood hematocrit (volume fraction) 36 % 40-54 Automated erythrocyte mean corpuscular volume 92 [foz_us] 80-99 Automated erythrocyte mean corpuscular hemoglobin (mass per erythrocyte) 32 pg 25-34 Automated erythrocyte mean corpuscular hemoglobin concentration measurement ( mass/volume) 34 g/dL 32-36 Automated erythrocyte distribution width ratio 12.8 % 10.0-14.5 Automated blood platelet count (count/volume) 155 10*3/uL 130-400 Automated blood platelet mean volume measurement 9.6 [foz_us ] 7.4-10.4 Automated blood neutrophils/100 leukocytes 67 % 42-75 Automated blood lymphocytes/100 leukocytes 23 % 12-44 Blood monocytes/100 leukocytes 8 % 0-12 Automated blood eosinophils/100 leukocytes 2 % 0-10 Automated blood basophils/100 leukocytes 1 % 0-10 Blood neutrophils automated count (number/volume) 4.0 10*3 1.8-7.8 Blood lymphocytes automated count (number/volume) 1.3 10*3 1.0-4.0 Blood monocytes automated count (number/volume) 0.5 10*3 0.0-1.0 Automated eosinophil count 0.1 10*3/uL 0.0-0.3 Automated blood basophil count (count/volume) 0.0 10*3/uL 0.0-0.1 PT panel in platelet poor plasma by coagulation assay - 04/07/16 13:45 Prothrombin time (PT) in platelet poor plasma by coagulation assay 12.3 s 12.2-14.7 INR in platelet poor plasma or blood by coagulation assay 0.9 0.8-1.4 Whole blood basic metabolic panel - 04/07/16 13:45 Serum or plasma sodium measurement (moles/volume) 140 mmol/ L 135-145 Serum or plasma potassium measurement (moles/volume) 3.9 mmol/L 3.6-5.0 Serum or plasma chloride measurement (moles/volume) 100 mmol /L 98-107 Carbon dioxide 30 mmol/L 21-32 Serum or plasma anion gap determination (moles/volume) 10 mmol/L 5-14 Serum or plasma urea nitrogen measurement (mass/volume) 15 mg/dL 7-18 Serum or plasma creatinine measurement (mass/volume) 1.22 mg /dL 0.60-1.30 Serum or plasma urea nitrogen/creatinine mass ratio 12 NRG Serum or plasma creatinine measurement with calculation of estimated glomerular filtration rate 60 NRG Serum or plasma glucose measurement (mass/volume) 87 mg/dL 70-105 Serum or plasma calcium measurement (mass/volume) 8.9 mg/dL 8.5-10.1 Methicillin resistant Staphylococcus aureus (MRSA) screening culture - 13:45 Methicillin resistant Staphylococcus aureus (MRSA) screening culture NEG NRG Complete urinalysis with reflex to culture - 04/07/16 13:55 Urine color determination YELLOW NRG Urine clarity determination CLEAR NRG Urine pH measurement by test strip 6 5- 9 Specific gravity of urine by test strip 1.010 1.016-1.022 Urine protein assay by test strip, semi-quantitative NEGATIVE NEGATIVE Urine glucose detection by automated test strip NEGATIVE NEGATIVE Erythrocytes detection in urine sediment by light microscopy NEGATIVE NEGATIVE Urine ketones detection by automated test strip NEGATIVE NEGATIVE Urine nitrite detection by test strip NEGATIVE NEGATIVE Urine total bilirubin detection by test strip NEGATIVE NEGATIVE Urine urobilinogen measurement by automated test strip (mass/volume) NORMAL NORMAL Urine leukocyte esterase detection by dipstick NEGATIVE NEGATIVE Automated urine sediment erythrocyte count by microscopy (number/high power field) NONE NRG Automated urine sediment leukocyte count by microscopy (number/high power field ) NONE NRG Bacteria detection in urine sediment by light microscopy NEGATIVE NRG Squamous epithelial cells detection in urine sediment by light microscopy RARE NRG Crystals detection in urine sediment by light microscopy NONE NRG Casts detection in urine sediment by light microscopy NONE NRG Mucus detection in urine sediment by light microscopy NEGATIVE NRG Complete urinalysis with reflex to culture NO NRG Capillary blood glucose measurement by glucometer (mass/volume) - 04/14/16 15: 58 Capillary blood glucose measurement by glucometer (mass/volume) 286 mg/dL 70-110 Capillary blood glucose measurement by glucometer (mass/volume) - 04/14/16 20: 04 Capillary blood glucose measurement by glucometer (mass/volume) 208 mg/dL 70-110 Complete blood count (CBC) with automated white blood cell (WBC) differential - 04/15/16 05:18 Blood leukocytes automated count (number/volume) 5.2 10*3/ uL 4.3-11.0 Blood erythrocytes automated count (number/volume) 3.10 10*6 /uL 4.35-5.85 Venous blood hemoglobin measurement (mass/volume) 9.8 g/dL 13.3-17.7 Blood hematocrit (volume fraction) 28 % 40-54 Automated erythrocyte mean corpuscular volume 91 [foz_us] 80-99 Automated erythrocyte mean corpuscular hemoglobin (mass per erythrocyte) 32 pg 25-34 Automated erythrocyte mean corpuscular hemoglobin concentration measurement ( mass/volume) 35 g/dL 32-36 Automated erythrocyte distribution width ratio 12.6 % 10.0-14.5 Automated blood platelet count (count/volume) 131 10*3/uL 130-400 Automated blood platelet mean volume measurement 10.2 [foz_ us] 7.4-10.4 Automated blood neutrophils/100 leukocytes 77 % 42-75 Automated blood lymphocytes/100 leukocytes 14 % 12-44 Blood monocytes/100 leukocytes 7 % 0-12 Automated blood eosinophils/100 leukocytes 2 % 0-10 Automated blood basophils/100 leukocytes 0 % 0-10 Blood neutrophils automated count (number/volume) 4.0 10*3 1.8-7.8 Blood lymphocytes automated count (number/volume) 0.7 10*3 1.0-4.0 Blood monocytes automated count (number/volume) 0.4 10*3 0.0-1.0 Automated eosinophil count 0.1 10*3/uL 0.0-0.3 Automated blood basophil count (count/volume) 0.0 10*3/uL 0.0-0.1 Comprehensive metabolic panel - 04/15/16 05:18 Serum or plasma sodium measurement (moles/volume) 137 mmol/ L 135-145 Serum or plasma potassium measurement (moles/volume) 3.9 mmol/L 3.6-5.0 Serum or plasma chloride measurement (moles/volume) 96 mmol/ L 98-107 Carbon dioxide 29 mmol/L 21-32 Serum or plasma anion gap determination (moles/volume) 12 mmol/L 5-14 Serum or plasma urea nitrogen measurement (mass/volume) 16 mg/dL 7-18 Serum or plasma creatinine measurement (mass/volume) 1.24 mg /dL 0.60-1.30 Serum or plasma urea nitrogen/creatinine mass ratio 13 NRG Serum or plasma creatinine measurement with calculation of estimated glomerular filtration rate 59 NRG Serum or plasma glucose measurement (mass/volume) 363 mg/dL 70-105 Serum or plasma calcium measurement (mass/volume) 8.7 mg/dL 8.5-10.1 Serum or plasma total bilirubin measurement (mass/volume) 0.4 mg/dL 0.1-1.0 Serum or plasma alkaline phosphatase measurement (enzymatic activity/volume) 70 U/L 40-136 Serum or plasma aspartate aminotransferase measurement (enzymatic activity/ volume) 29 U/L 5-34 Serum or plasma alanine aminotransferase measurement (enzymatic activity/volume ) 11 U/L 0-55 Serum or plasma protein measurement (mass/volume) 5.2 g/dL 6.4-8.2 Serum or plasma albumin measurement (mass/volume) 3.1 g/dL 3.2-4.5 Capillary blood glucose measurement by glucometer (mass/volume) - 04/15/16 05: 39 Capillary blood glucose measurement by glucometer (mass/volume) 365 mg/dL 70-110 Capillary blood glucose measurement by glucometer (mass/volume) - 04/15/16 10: 59 Capillary blood glucose measurement by glucometer (mass/volume) 257 mg/dL 70-110 Capillary blood glucose measurement by glucometer (mass/volume) - 04/15/16 16: 17 Capillary blood glucose measurement by glucometer (mass/volume) 410 mg/dL 70-110 Capillary blood glucose measurement by glucometer (mass/volume) - 04/15/16 20: 18 Capillary blood glucose measurement by glucometer (mass/volume) 228 mg/dL 70-110 Capillary blood glucose measurement by glucometer (mass/volume) - 04/16/16 05: 33 Capillary blood glucose measurement by glucometer (mass/volume) 239 mg/dL 70-110 Capillary blood glucose measurement by glucometer (mass/volume) - 04/16/16 11: 08 Capillary blood glucose measurement by glucometer (mass/volume) 129 mg/dL 70-110 Capillary blood glucose measurement by glucometer (mass/volume) - 04/16/16 16: 15 Capillary blood glucose measurement by glucometer (mass/volume) 189 mg/dL 70-110 Capillary blood glucose measurement by glucometer (mass/volume) - 04/16/16 22: 20 Capillary blood glucose measurement by glucometer (mass/volume) 358 mg/dL 70-110 Capillary blood glucose measurement by glucometer (mass/volume) - 04/17/16 05: 48 Capillary blood glucose measurement by glucometer (mass/volume) 46 mg/dL 70-110 Capillary blood glucose measurement by glucometer (mass/volume) - 04/17/16 06: 10 Capillary blood glucose measurement by glucometer (mass/volume) 99 mg/dL 70-110 Capillary blood glucose measurement by glucometer (mass/volume) - 04/17/16 11: 04 Capillary blood glucose measurement by glucometer (mass/volume) 201 mg/dL 70-110 Capillary blood glucose measurement by glucometer (mass/volume) - 04/17/16 17: 00 Capillary blood glucose measurement by glucometer (mass/volume) 102 mg/dL 70-110 Capillary blood glucose measurement by glucometer (mass/volume) - 04/17/16 21: 25 Capillary blood glucose measurement by glucometer (mass/volume) 88 mg/dL 70-110 Capillary blood glucose measurement by glucometer (mass/volume) - 04/18/16 04: 19 Capillary blood glucose measurement by glucometer (mass/volume) 111 mg/dL 70-110 Capillary blood glucose measurement by glucometer (mass/volume) - 04/18/16 08: 42 Capillary blood glucose measurement by glucometer (mass/volume) 44 mg/dL 70-110 Capillary blood glucose measurement by glucometer (mass/volume) - 04/18/16 08: 55 Capillary blood glucose measurement by glucometer (mass/volume) 51 mg/dL 70-110 Capillary blood glucose measurement by glucometer (mass/volume) - 04/18/16 09: 28 Capillary blood glucose measurement by glucometer (mass/volume) 99 mg/dL 70-110 Capillary blood glucose measurement by glucometer (mass/volume) - 04/18/16 11: 07 Capillary blood glucose measurement by glucometer (mass/volume) 154 mg/dL 70-110 Capillary blood glucose measurement by glucometer (mass/volume) - 04/19/16 11: 04 Capillary blood glucose measurement by glucometer (mass/volume) 137 mg/dL 70-110 Capillary blood glucose measurement by glucometer (mass/volume) - 04/19/16 15: 59 Capillary blood glucose measurement by glucometer (mass/volume) 199 mg/dL 70-110 Capillary blood glucose measurement by glucometer (mass/volume) - 04/20/16 15: 42 Capillary blood glucose measurement by glucometer (mass/volume) 122 mg/dL 70-110 Capillary blood glucose measurement by glucometer (mass/volume) - 04/20/16 20: 59 Capillary blood glucose measurement by glucometer (mass/volume) 183 mg/dL 70-110 Capillary blood glucose measurement by glucometer (mass/volume) - 04/21/16 06: 28 Capillary blood glucose measurement by glucometer (mass/volume) 195 mg/dL 70-110 Capillary blood glucose measurement by glucometer (mass/volume) - 04/21/16 11: 20 Capillary blood glucose measurement by glucometer (mass/volume) 256 mg/dL 70-110 Capillary blood glucose measurement by glucometer (mass/volume) - 04/21/16 16: 25 Capillary blood glucose measurement by glucometer (mass/volume) 100 mg/dL 70-110 Capillary blood glucose measurement by glucometer (mass/volume) - 04/21/16 21: 04 Capillary blood glucose measurement by glucometer (mass/volume) 203 mg/dL 70-110 Capillary blood glucose measurement by glucometer (mass/volume) - 04/22/16 06: 44 Capillary blood glucose measurement by glucometer (mass/volume) 161 mg/dL 70-110 Capillary blood glucose measurement by glucometer (mass/volume) - 04/22/16 11: 19 Capillary blood glucose measurement by glucometer (mass/volume) 243 mg/dL 70-110 Capillary blood glucose measurement by glucometer (mass/volume) - 04/22/16 16: 30 Capillary blood glucose measurement by glucometer (mass/volume) 138 mg/dL 70-110 Capillary blood glucose measurement by glucometer (mass/volume) - 04/22/16 21: 00 Capillary blood glucose measurement by glucometer (mass/volume) 242 mg/dL 70-110 Capillary blood glucose measurement by glucometer (mass/volume) - 04/23/16 06: 01 Capillary blood glucose measurement by glucometer (mass/volume) 137 mg/dL 70-110 Capillary blood glucose measurement by glucometer (mass/volume) - 04/23/16 11: 23 Capillary blood glucose measurement by glucometer (mass/volume) 226 mg/dL 70-110 Capillary blood glucose measurement by glucometer (mass/volume) - 04/23/16 16: 17 Capillary blood glucose measurement by glucometer (mass/volume) 139 mg/dL 70-110 Capillary blood glucose measurement by glucometer (mass/volume) - 04/23/16 20: 41 Capillary blood glucose measurement by glucometer (mass/volume) 211 mg/dL 70-110 Capillary blood glucose measurement by glucometer (mass/volume) - 04/24/16 06: 11 Capillary blood glucose measurement by glucometer (mass/volume) 132 mg/dL 70-110 Capillary blood glucose measurement by glucometer (mass/volume) - 04/24/16 11: 52 Capillary blood glucose measurement by glucometer (mass/volume) 191 mg/dL 70-110 Capillary blood glucose measurement by glucometer (mass/volume) - 04/24/16 16: 14 Capillary blood glucose measurement by glucometer (mass/volume) 133 mg/dL 70-110 Capillary blood glucose measurement by glucometer (mass/volume) - 04/24/16 20: 18 Capillary blood glucose measurement by glucometer (mass/volume) 196 mg/dL 70-110 Capillary blood glucose measurement by glucometer (mass/volume) - 04/25/16 05: 49 Capillary blood glucose measurement by glucometer (mass/volume) 311 mg/dL 70-110 Capillary blood glucose measurement by glucometer (mass/volume) - 04/25/16 11: 12 Capillary blood glucose measurement by glucometer (mass/volume) 117 mg/dL 70-110 Capillary blood glucose measurement by glucometer (mass/volume) - 04/26/16 11: 09 Capillary blood glucose measurement by glucometer (mass/volume) 181 mg/dL 70-110 Capillary blood glucose measurement by glucometer (mass/volume) - 04/26/16 16: 03 Capillary blood glucose measurement by glucometer (mass/volume) 120 mg/dL 70-110 Capillary blood glucose measurement by glucometer (mass/volume) - 04/26/16 20: 23 Capillary blood glucose measurement by glucometer (mass/volume) 230 mg/dL 70-110 Capillary blood glucose measurement by glucometer (mass/volume) - 04/27/16 05: 45 Capillary blood glucose measurement by glucometer (mass/volume) 143 mg/dL 70-110 Capillary blood glucose measurement by glucometer (mass/volume) - 04/27/16 11: 17 Capillary blood glucose measurement by glucometer (mass/volume) 219 mg/dL 70-110 Capillary blood glucose measurement by glucometer (mass/volume) - 04/27/16 15: 44 Capillary blood glucose measurement by glucometer (mass/volume) 225 mg/dL 70-110 Hemoglobin A1c - 09/19/16 09:09 Hemoglobin A1c 7.1 % 4.5-6.2 THYROID STIMULATING HORMONE - 09/19/16 09:09 THYROID STIMULATING HORMONE 0.20 u[iU]/mL 0.35-4.94 Serum or plasma thyroxine (T4) free measurement (mass/volume) - 09/19/16 09:09 Serum or plasma thyroxine (T4) free measurement (mass/volume) 0.81 ng/dL 0.70-1.48 Encounters ACCT No. Visit Date/Time Discharge Status Pt. Type Provider Facility Loc./Unit Complaint [id number] 04/14/2016 14:10:00 2016 17:35:00 DIS Inpatient CANDY PAYAN, RADHA Veras [facility] IRF RIGHT BKA [id number] 02/14/2016 07:16:00 2015 09:32:00 DIS Emergency GRACE COX DO [facility] ER R FOOT INJ [id number] 02/04/2016 10:13:00 2015 12:18:00 DIS Emergency HOLLI DAVIS MD [facility] ER FALL/RT FOOT PAIN [id number] 07/16/2015 14:44:00 2015 00:01:00 DIS Outpatient LIZY WHITENY [facility] ONC [id number] 01/05/2015 14:08:00 2015 00:01:00 DIS Outpatient LIZY WHITNEY [facility] ONC [id number] 03/27/2015 10:59:00 2014 12:08:00 DIS Emergency REGINALD PAYAN, ANANYA Cobb [facility] ER INFECTION ON KNUCKLE OF LT HAND [id number] 01/13/2015 08:18:00 2014 23:59:59 CLS Outpatient GRACE CURIELC [facility] LAB ALKALOSIS,HLP,HYPERPARATHYROIDISM RENAL, CKD III [id number] 01/05/2015 13:47:00 2014 23:59:59 CLS Outpatient HARRY SAMANO UNIT AIDE [facility] ONC [id number] 12/29/2014 15:00:00 2014 23:59:59 CLS Outpatient LIZY WHITNEY [facility] ONC [id number] 12/16/2014 07:40:00 2014 23:59:59 CLS Outpatient JT FIGUEROA MD [facility] LAB DM TYPE I, [id number] 06/26/2014 12:49:00 2014 00:01:00 DIS Outpatient LIZY WHITNEY [facility] ONC [id number] 12/26/2013 12:56:00 2013 00:01:00 DIS Outpatient LIZY WHITNEY [facility] ONC [id number] 12/26/2013 12:56:00 2013 23:59:59 CLS Outpatient HARRY SAMANO [facility] ONC [id number] 11/28/2013 08:33:00 2013 23:59:59 CLS Outpatient GRACE CURIEL [employer] [facility] LAB ALKALOSIS,HYPERLIPIDEMIA,ANEMIA CHRONIC KIDNEY [id number] 06/27/2013 12:48:00 2013 00:01:00 DIS Outpatient LIZY WHTINEY [facility] ONC [id number] 2013 15:08:00 2013 00:01:00 DIS Outpatient LIZY WHITNEY [facility] ONC [id number] 06/07/2013 07:59:00 2013 23:59:59 CLS Outpatient GRACE CURIEL [employer]C [facility] LAB HYPERLIPIDEMIA,ANEMIA [id number] 06/07/2013 07:53:00 2013 23:59:59 CLS Outpatient JT FIGUEROA MD [facility] LAB HYPOTHYROIDISM,DIABETES [id number] 11/30/2012 09:25:00 2012 23:59:59 CLS Outpatient GRACE CURIEL [employer]C [facility] LAB HLP,HYPERPARATHYROIDISM,ACIDOSIS, HYPERPOTASSE [id number] 11/20/2012 13:38:00 2012 16:17:00 DIS Emergency JAMIE VELAZQUEZ MANAGER GAMES [facility] ER FALL [id number] 09/20/2012 14:17:00 2012 23:59:59 CLS Outpatient HARRY SAMANO [facility] ONC OV [id number] 09/19/2016 08:54:00 ACT Outpatient JT FIGUEROA MD [facility] LAB L10.8 E03.4 [id number] 07/22/2016 07:46:00 PEN Preadmit LIZY WHITNEY [facility] RAD M84.363A M84.371A [id number] 07/21/2016 12:23:00 ACT Outpatient LIZY WHITNEY [facility] ONC [id number] 04/07/2016 13:29:00 ACT Outpatient FROILAN RAINER F [facility] LAB DISPLACED TRIMALLEOLAR FX PVD [id number] 03/16/2016 07:54:00 ACT Outpatient GRACE CURIEL [employer] [facility] LAB PANCYTOPENIA,ALKALOSIS,HYPERPOTASSEMIA [id number] 08/28/2015 07:28:00 ACT Outpatient GRACE CURIEL [employer] [facility] LAB PANCYTOPENIA,ALKALOSIS [id number] 06/08/2015 08:47:00 ACT Outpatient JT FIGUEROA MD [facility] LAB THYROID [id number] 07/10/2014 18:18:00 Document Registration [id number] 05/29/2014 08:22:00 Document Registration [id number] 05/29/2014 08:16:00 Document Registration [id number] 05/31/2012 09:04:00 Document Registration [id number] 05/31/2012 08:58:00 Document Registration [id number] 05/03/2012 19:13:00 Document Registration [id number] 04/28/2012 13:10:00 Document Registration [id number] 03/09/2012 13:02:00 Document Registration [id number] 01/25/2011 06:41:00 Document Registration [id number] 12/15/2010 05:54:00 Document Registration [id number] 10/15/2010 07:14:00 Document Registration [id number] 09/29/2010 07:15:00 Document Registration [id number] 09/29/2010 07:08:00 Document Registration [id number] 08/25/2010 09:54:00 Document Registration [id number] 07/27/2010 14:39:00 Document Registration [id number] 03/01/2010 09:52:00 Document Registration [id number] 02/23/2010 11:10:00 Document Registration
--- NOTE | 2016-09-29 13:24 | ED Integumentary General ---
General Chief Complaint: Skin/Wound Problems Stated Complaint: BLISTERING WITH NEW PROTHETIC LEG RT//DIABETIC Source: patient Exam Limitations: no limitations History of Present Illness Time seen by provider: 13:20 Initial Comments To ER with blistering to the distal surface of the right below the knee amputation stump. 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 Moreno. He was briefly here on the rehabilitation floor. He is a type I diabetic who wears an insulin pump. Yesterday, he got a new prosthetic leg. This new prosthetic leg, in order to keep the prosthetic attached to the stump, has a suction pump and as he takes a step creates a vacuum or the bottom of the stump meets the prosthetic. He denies any fevers or chills. Timing/Duration: just prior to arrival Severity: moderate Associated Symptoms: blisters Allergies and Home Medications Allergies Coded Allergies: No Known Drug Allergies (Unverified , 07/04/09) Home Medications Aspirin 325 Mg Tablet, 325 MG PO DAILY, (Reported) Atorvastatin Calcium 40 Mg Tablet, 40 MG PO HS, (Reported) Bupropion HCl 150 Mg Tab.er.24h, 150 MG PO DAILY, (Reported) TAKES ALONG WITH 300MG TABLET FOR A TOTAL DAILY DOSE OF 450MG Bupropion Hcl 300 Mg Tab.sr.24h, 300 MG PO DAILY, (Reported) TAKES ALONG WITH 150MG TABLET FOR TOTAL DAILY DOSE OF 450MG Buspirone HCl 10 Mg Tablet, 10 MG PO TID, (Reported) Calcium Carbonate/Vitamin D3 1 Each Tablet, 1 TAB PO HS, (Reported) Clonazepam 1 Mg Tablet, 1 MG PO HS, (Reported) Clonazepam 1 Mg Tablet, 0.5 MG PO DAILY, (Reported) TAKES 1/2 (1MG) TABLET Docusate Sodium 100 Mg Capsule, 100 MG PO BID, (Reported) Fentanyl 1 Ea Patch, 75 MCG TD Q72H, (Reported) Ferrous Sulfate 325 Mg Tablet, 325 MG PO HS, (Reported) Furosemide 20 Mg Tablet, 20 MG PO Q48H, (Reported) Gabapentin 600 Mg Tab, 600 MG PO TID, (Reported) Insulin Lispro 100 Unit/1 Ml Vial, PER PUMP, (Reported) Levothyroxine Sodium 200 Mcg Tablet, 200 MCG PO DAILY, (Reported) Metoprolol Succinate 25 Mg Tab.sr.24h, 12.5 MG PO HS, (Reported) TAKES 1/2 (25MG) TABLET Multivitamin 1 Each Tablet, 1 TAB PO DAILY, (Reported) [place] 3 Polyunsat Fatty Acids 1,000 Mg Cap, 1,000 MG PO QID, (Reported) Oxycodone HCl/Acetaminophen 1 Each Tablet, 1 TAB PO Q4H PRN for PAIN, (Reported) Pregabalin 75 Mg Capsule, 75 MG PO BID, (Reported) Sertraline HCl 100 Mg Tablet, 200 MG PO DAILY, (Reported) TAKES 2 (100MG) TABLETS ALONG WITH 50MG TABLET FOR A TOTAL DAILY DOSE OF 250MG Sertraline HCl 50 Mg Tablet, 50 MG PO DAILY, (Reported) TAKES ALONG WITH 2 (100MG) TABLETS FOR A TOTAL DAILY DOSE 250MG Constitutional: see HPI EENTM: see HPI Respiratory: no symptoms reported Cardiovascular: no symptoms reported Genitourinary: no symptoms reported Musculoskeletal: no symptoms reported Skin: see HPI Psychiatric/Neurological: No Symptoms Reported Endocrine: No Symptoms Reported Hematologic/Lymphatic: No Symptoms Reported Past Bjapfwh-Ugkrwd-Ljowda Hx Patient Social History Alcohol Use: Denies Use Recreational Drug Use: No Smoking Status: Never a Smoker Type Used: Pipe Recent Foreign Travel: No Contact w/Someone Who Travel: No Recent Hopitalizations: Yes Immunizations Up To Date Tetanus Booster (TDap): More than 5yrs PED Vaccines UTD: No Date of Pneumonia Vaccine: Jan 02, 2012 Date of Influenza Vaccine: Jan 13, 2016 Seasonal Allergies Seasonal Allergies: No Surgeries HX Surgeries: Yes Surgeries: Amputation, CABG, Orthopedic, Vascular Surgery Respiratory Hx Respiratory Disorders: No Cardiovascular Hx Cardiac Disorders: Yes Cardiac Disorders: Coronary Artery Disease, Heart Attack, High Cholesterol, Hypertension, Peripheral Vascular Neurological Hx Neurological Disorders: Yes (PERIPHERAL NEUROPATHY) Neurological Disorders: Neuropathy Reproductive System Hx Reproductive Disorders: No Sexually Transmitted Disease: No HIV/AIDS: No Genitourinary Hx Genitourinary Disorders: Yes Genitourinary Disorders: Renal Failure Gastrointestinal Hx Gastrointestinal Disorders: No Musculoskeletal Hx Musculoskeletal Disorders: Yes Musculoskeletal Disorders: Amputee, Fractures Endocrine Hx Endocrine Disorders: Yes (TYPE 1 DIABETIC X 50 YEARS) Endocrine Disorders: Parathyroid Disease, Diabetes, Insulin dep, Hypothyroidsim HEENT HX ENT Disorders: No (READING GLASSES) Loss of Vision: Denies Hearing Impairment: Denies Cancer Hx Cancer: No Psychosocial Hx Psychiatric Problems: Yes Behavioral Health Disorders: Anxiety, Depression Integumentary HX Skin/Integumentary Disorder: No Blood Transfusions Hx Blood Disorders: No Adverse Reaction to a Blood Tr: No Family Medical History Significant Family History: Heart Disease, Cancer, Diabetes Family Medial History: Cardiovascular disease 19 MOTHER Physical Exam Vital Signs Vital Sign - Last 12Hours 09/29/16 13:05 Temp 97.5 Pulse 54 Resp 18 B/P (MAP) 128/83 O2 Delivery Room Air Capillary Refill : General Appearance: WD/WN, no apparent distress HEENT: PERRL/EOMI, normal ENT inspection Neck: non-tender, full range of motion Respiratory: no respiratory distress, no accessory muscle use Gastrointestinal: non tender, soft Extremities: normal range of motion, non-tender Neurologic/Psychiatric: alert, normal mood/affect, oriented x 3 Skin: normal color, warm/dry, other (there are hemorrhagic bulla and few petechiae on the inferior surface of the stump. These are very well demarcated with no surrounding erythema. The stump is without cellulitis. There are no bulla or petechiae to the sides, only to the inferior aspect of the stump. One of these was leaking, culture collected and sent to lab.) Progress/Results/Core Measures Results/Orders Lab Results Laboratory Tests Test 09/29/16 13:22 Range/Units White Blood Count 3.7 L 4.3-11.0 10^3/uL Red Blood Count 3.85 L 4.35-5.85 10^6/uL Hemoglobin 11.8 L 13.3-17.7 G/DL Hematocrit 35 L 40-54 % Mean Corpuscular Volume 90 80-99 FL Mean Corpuscular Hemoglobin 31 25-34 PG Mean Corpuscular Hemoglobin Concent 34 32-36 G/DL Red Cell Distribution Width 12.9 10.0-14.5 % Platelet Count 130 130-400 10^3/uL Mean Platelet Volume 9.8 7.4-10.4 FL Neutrophils (%) (Auto) 69 42-75 % Lymphocytes (%) (Auto) 19 12-44 % Monocytes (%) (Auto) 9 0-12 % Eosinophils (%) (Auto) 3 0-10 % Basophils (%) (Auto) 1 0-10 % Neutrophils # (Auto) 2.5 1.8-7.8 X 10^3 Lymphocytes # (Auto) 0.7 L 1.0-4.0 X 10^3 Monocytes # (Auto) 0.3 0.0-1.0 X 10^3 Eosinophils # (Auto) 0.1 0.0-0.3 10^3/uL Basophils # (Auto) 0.0 0.0-0.1 10^3/uL Erythrocyte Sedimentation Rate 9 0-30 MM/HR C-Reactive Protein High Sensitivity 0.13 0.00-0.50 MG/DL My Orders Orders - JAMIE VELAZQUEZ APRN Cbc With Automated Diff (09/29/16 13:18) Hs C Reactive Protein (09/29/16 13:18) Erythrocyte Sedimentation Rate (09/29/16 13:18) Tibia/Fibula, Right, 2 Views (09/29/16 13:18) Wound Culture (09/29/16 13:18) Vital Signs/I&O Vital Sign - Last 12Hours 09/29/16 13:05 Temp 97.5 Pulse 54 Resp 18 B/P (MAP) 128/83 O2 Delivery Room Air Departure Communication Progress Notes I believe these petechiae/hemorrhagic bulla to be secondary to the vacuum created by the pump in his new prosthetic leg. He is only one this 1 day. He' s never had this problem before. There is no surrounding erythema and the bulla are well demarcated there is no suggestion of infection here. However one of these is opened and leaking so I will treat prophylactically with antibiotics. I've advised him to go back to his old prosthetic leg for 1-2 weeks until these entirely heal. After that he should discuss with his prosthetic company the possibility of removing the vacuum suction. Impression Impression: Primary Impression: hemorrhagic bullae of stump Disposition: 01 HOME, SELF-CARE Condition: Stable Departure-Patient Inst. Decision time for Depature: 13:23 Referrals: SKYLAR GELLER MD (PCP/Family) Primary Care Physician Patient Instructions: Wound Care (DC) Add. Discharge Instructions: 1. Go back to your old prosthetic for the next 1-2 weeks until these blisters have entirely healed. At the end of this timeframe you may discuss with your prosthetic company removing the vacuum/suction device as I feel this may be the cause of blisters to line 2. Antibiotics as directed All discharge instructions reviewed with patient and/or family. Voiced understanding. Scripts Cephalexin (Keflex) 500 Mg Capsule 500 MG PO TID, #21 CAP Prov: JAMIE VELAZQUEZ APRN 09/29/16 Copy Copies To 1: SKYLAR GELLER MD, PETER J SETTER OFF Sep 29, 2016 13:24
[2016-09-29 13:29] LABS: BASOPHILS % (AUTO) 1 % (0-10); EOSINOPHILS # (AUTO) 0.1 10^3/uL (0.0-0.3); EOSINOPHILS % (AUTO) 3 % (0-10); LYMPHOCYTES # (AUTO) 0.7 X 10^3 (1.0-4.0); LYMPHOCYTES % (AUTO) 19 % (12-44); MEAN CORPUSCULAR HEMOGLOBIN 31 PG (25-34); MEAN CORPUSCULAR HGB CONC 34 G/DL (32-36); MEAN CORPUSCULAR VOLUME 90 FL (80-99); MEAN PLATELET VOLUME 9.8 FL (7.4-10.4); MONOCYTES # (AUTO) 0.3 X 10^3 (0.0-1.0); MONOCYTES % (AUTO) 9 % (0-12); NEUTROPHILS # (AUTO) 2.5 X 10^3 (1.8-7.8); NEUTROPHILS % (AUTO) 69 % (42-75); PLATELET COUNT 130 10^3/uL (130-400); RED BLOOD COUNT 3.85 10^6/uL (4.35-5.85); RED CELL DISTRIBUTION WIDTH 12.9 % (10.0-14.5); WHITE BLOOD COUNT 3.7 10^3/uL (4.3-11.0)
[2016-09-29 14:06] LABS: ERYTHROCYTE SEDIMENTATION RATE 9 MM/HR (0-30)
[2016-09-29] MEDS ORDERED: CEPH-507 PO (14:41)
--- NOTE | 2016-09-29 14:41 | Diagnostic Imaging Report ---
EXAM: 2 views of the tibia and fibula. INDICATION: Blisters near right leg where the prosthetic attaches. FINDINGS: There is below knee amputation with the distal margin of the fibula and tibia demonstrating no evidence of an acute erosion. There is no soft tissue air or foreign body other than surgical clips along the medial aspect of the knee region. IMPRESSION: Below knee amputation findings. No acute process. Dictated by: Dictated on workstation # [id number]
[2016-09-29 14:52] VITALS: BP 128/83
== END 2016-09-29 14:52 | disposition home or self-care (01) ==
LOC: EDUNIT# 12:24 → ER 12:26
DX: R23.8 Other skin changes (principal); Z89.511 Acquired absence of right leg below knee; E10.51 Type 1 diabetes mellitus with diabetic peripheral angiopathy without gangrene; I25.10 Atherosclerotic heart disease of native coronary artery without angina pectoris; E78.00 Pure hypercholesterolemia, unspecified; I10 Essential (primary) hypertension; I25.2 Old myocardial infarction; E03.9 Hypothyroidism, unspecified; E21.5 Disorder of parathyroid gland, unspecified; Z95.1 Presence of aortocoronary bypass graft; Z79.4 Long term (current) use of insulin; Z79.899 Other long term (current) drug therapy
CPT/HCPCS: 36415; 73590; 85025; 85652; 86141; 87070; 87205; 99283

== ENCOUNTER 2016-10-17 12:12 | Outpatient (RCR) | payer MEDICARE ==
[~2016-10-17 12:12] MED LIST changes: +CEPH-507 PO
== END 2016-10-17 16:00 | disposition home or self-care (01) ==
LOC: WOUNDCARE 12:12
PROVIDERS: ATTEND Surgery
DX: L25.9 Unspecified contact dermatitis, unspecified cause (principal); Z89.511 Acquired absence of right leg below knee; E10.42 Type 1 diabetes mellitus with diabetic polyneuropathy
CPT/HCPCS: 99213

== ENCOUNTER 2016-11-20 07:46 | Emergency (ER) | payer MEDICARE ==
[~2016-11-20] VITALS: Ht 177.8 cm; Wt 66.7 kg
[2016-11-20] MEDS ORDERED: NS IV 1000 ML 1,000 ML IV ONE (08:47)
[2016-11-20] MEDS ORDERED: ONDANSETRON 4 MG/2 ML (SDV) Z0FRAN IVP ONE (09:00)
[2016-11-20 09:32] LABS: BASOPHILS % (AUTO) 0 % (0-10); EOSINOPHILS # (AUTO) 0.1 10^3/uL (0.0-0.3); EOSINOPHILS % (AUTO) 1 % (0-10); LYMPHOCYTES # (AUTO) 0.8 X 10^3 (1.0-4.0); LYMPHOCYTES % (AUTO) 16 % (12-44); MEAN CORPUSCULAR HEMOGLOBIN 31 PG (25-34); MEAN CORPUSCULAR HGB CONC 34 G/DL (32-36); MEAN CORPUSCULAR VOLUME 92 FL (80-99); MEAN PLATELET VOLUME 9.9 FL (7.4-10.4); MONOCYTES # (AUTO) 0.4 X 10^3 (0.0-1.0); MONOCYTES % (AUTO) 7 % (0-12); NEUTROPHILS # (AUTO) 3.9 X 10^3 (1.8-7.8); NEUTROPHILS % (AUTO) 75 % (42-75); PLATELET COUNT 158 10^3/uL (130-400); RED BLOOD COUNT 4.33 10^6/uL (4.35-5.85); RED CELL DISTRIBUTION WIDTH 13.3 % (10.0-14.5); WHITE BLOOD COUNT 5.1 10^3/uL (4.3-11.0)
[2016-11-20 09:49] LABS: ALBUMIN 4.2 GM/DL (3.2-4.5); BILIRUBIN,TOTAL 0.4 MG/DL (0.1-1.0); CALCIUM 9.5 MG/DL (8.5-10.1); CREATININE SERUM 1.34 MG/DL (0.60-1.30); POTASSIUM 3.6 MMOL/L (3.6-5.0); TOTAL PROTEIN 6.9 GM/DL (6.4-8.2)
[2016-11-20 10:20] LABS: BILIRUBIN,URINE NEGATIVE (NEGATIVE); KETONES,URINE 2+ (NEGATIVE); LEUKOCYTE ESTERASE ,URINE NEGATIVE (NEGATIVE); NITRITE,URINE NEGATIVE (NEGATIVE); PH,URINE 5 (5-9); PROTEIN,URINE 1+ (NEGATIVE); UROBILINOGEN,URINE NORMAL (NORMAL)
[2016-11-20 10:32] LABS: WBC,URINE 0-2 /HPF
[2016-11-20] MEDS ORDERED: ONDA4TAB8 PO (10:48)
--- NOTE | 2016-11-20 10:48 | ED GI ---
General Chief Complaint: Abdominal/GI Problems Stated Complaint: VOMITING Nursing Triage Note: Pt claims he has had intermittant vomiting last 3 days. No vomiting this morning. Denies fever. Pt in no acute distress currently. Sepsis Screen: No Definite Risk Source of Information: Patient History of Present Illness Time Seen By Provider: 08:35 Initial Comments PT STATES HE HAD NAUSEA AND VOMITED X 1 ON MONDAY NIGHT WAS FINE ALL DAY YESTERDAY LAST NIGHT NAUSEA RETURNED AND HE VOMITED X 1 LAST NIGHT IS NAUSEATED THIS AM, BUT NO VOMITING NO ABDOMINAL PAIN OR CRAMPING NO DIARRHEA NO FEVER HAS BEEN EATING AND DRINKING WELL--TOOK AM MEDS TODAY AND DRANK COFFEE WITHOUT PROBLEMS NO PROBLEMS URINATING, AND VOIDING A NORMAL AMOUNT NO KNOWN SICK CONTACTS OR SUSPICIOUS FOODS PT IS INSULIN DEPENDENT DIABETIC AND HAS INSULIN PUMP--STATES BLOOD SUGAR WAS HIGH LAST PM--IN 300'S, BUT HAS NOT CHECKED BLOOD SUGAR THIS AM. PCP: DR. GELLER Allergies and Home Medications Allergies Coded Allergies: No Known Drug Allergies (Unverified , 07/04/09) Home Medications Aspirin 325 Mg Tablet, 325 MG PO DAILY, (Reported) Atorvastatin Calcium 40 Mg Tablet, 40 MG PO HS, (Reported) Bupropion HCl 150 Mg Tab.er.24h, 150 MG PO DAILY, (Reported) TAKES ALONG WITH 300MG TABLET FOR A TOTAL DAILY DOSE OF 450MG Bupropion Hcl 300 Mg Tab.sr.24h, 300 MG PO DAILY, (Reported) TAKES ALONG WITH 150MG TABLET FOR TOTAL DAILY DOSE OF 450MG Buspirone HCl 10 Mg Tablet, 10 MG PO TID, (Reported) Calcium Carbonate/Vitamin D3 1 Each Tablet, 1 TAB PO HS, (Reported) Cephalexin 500 Mg Capsule, 500 MG PO TID, #21 Prescribed by: JAMIE VELAZQUEZ on 09/29/16 1441 Clonazepam 1 Mg Tablet, 1 MG PO HS, (Reported) Clonazepam 1 Mg Tablet, 0.5 MG PO DAILY, (Reported) TAKES 1/2 (1MG) TABLET Docusate Sodium 100 Mg Capsule, 100 MG PO BID, (Reported) Fentanyl 1 Ea Patch, 75 MCG TD Q72H, (Reported) Ferrous Sulfate 325 Mg Tablet, 325 MG PO HS, (Reported) Furosemide 20 Mg Tablet, 20 MG PO Q48H, (Reported) Gabapentin 600 Mg Tab, 600 MG PO TID, (Reported) Insulin Lispro 100 Unit/1 Ml Vial, PER PUMP, (Reported) Levothyroxine Sodium 200 Mcg Tablet, 200 MCG PO DAILY, (Reported) Metoprolol Succinate 25 Mg Tab.sr.24h, 12.5 MG PO HS, (Reported) TAKES 1/2 (25MG) TABLET Multivitamin 1 Each Tablet, 1 TAB PO DAILY, (Reported) [place] 3 Polyunsat Fatty Acids 1,000 Mg Cap, 1,000 MG PO QID, (Reported) Ondansetron 4 Mg Tab.rapdis, 4 MG PO Q4H, #10 Prescribed by: GRACE COX on 11/20/16 1048 Oxycodone HCl/Acetaminophen 1 Each Tablet, 1 TAB PO Q4H PRN for PAIN, (Reported) Pregabalin 75 Mg Capsule, 75 MG PO BID, (Reported) Sertraline HCl 100 Mg Tablet, 200 MG PO DAILY, (Reported) TAKES 2 (100MG) TABLETS ALONG WITH 50MG TABLET FOR A TOTAL DAILY DOSE OF 250MG Sertraline HCl 50 Mg Tablet, 50 MG PO DAILY, (Reported) TAKES ALONG WITH 2 (100MG) TABLETS FOR A TOTAL DAILY DOSE 250MG Review of Systems Constitutional: no symptoms reported Respiratory: No Symptoms Reported Cardiovascular: No Symptoms Reported Gastrointestinal: See HPI Genitourinary: No Symptoms Reported Musculoskeletal: no symptoms reported Skin: no symptoms reported Psychiatric/Neurological: No Symptoms Reported Endocrine: No Symptoms Reported Past Pbukepr-Afkjji-Mnadbz Hx Patient Social History Alcohol Use: Denies Use Recreational Drug Use: No Smoking Status: Current Everyday Smoker Type Used: Pipe Recent Foreign Travel: No Contact w/Someone Who Travel: No Recent Infectious Disease Expo: No Recent Hopitalizations: Yes Immunizations Up To Date Tetanus Booster (TDap): More than 5yrs PED Vaccines UTD: No Date of Pneumonia Vaccine: Jan 02, 2012 Date of Influenza Vaccine: Jan 13, 2016 Seasonal Allergies Seasonal Allergies: No Surgeries HX Surgeries: Yes (RIGHT LOWER LEG AMPUTATION) Surgeries: Amputation, Cardiac, CABG, Orthopedic, Vascular Surgery Respiratory Hx Respiratory Disorders: No Cardiovascular Hx Cardiac Disorders: Yes Cardiac Disorders: Coronary Artery Disease, Heart Attack, High Cholesterol, Hypertension, Peripheral Vascular Neurological Hx Neurological Disorders: Yes (PERIPHERAL NEUROPATHY) Neurological Disorders: Neuropathy Reproductive System Hx Reproductive Disorders: No Sexually Transmitted Disease: No HIV/AIDS: No Genitourinary Hx Genitourinary Disorders: Yes Genitourinary Disorders: Renal Failure Gastrointestinal Hx Gastrointestinal Disorders: No Musculoskeletal Hx Musculoskeletal Disorders: Yes Musculoskeletal Disorders: Amputee, Fractures Endocrine Hx Endocrine Disorders: Yes (TYPE 1 DIABETIC X 50 YEARS) Endocrine Disorders: Parathyroid Disease, Diabetes, Insulin dep, Hypothyroidsim HEENT HX ENT Disorders: No (READING GLASSES) Loss of Vision: Denies Hearing Impairment: Denies Cancer Hx Cancer: No Psychosocial Hx Psychiatric Problems: Yes Behavioral Health Disorders: Anxiety, Depression Integumentary HX Skin/Integumentary Disorder: No Blood Transfusions Hx Blood Disorders: No Adverse Reaction to a Blood Tr: No Family Medical History Significant Family History: Heart Disease, Cancer, Diabetes Family Medial History: Cardiovascular disease 19 MOTHER Physical Exam Vital Signs VS - Last 72 Hours, by Label 11/20/16 11/20/16 08:17 10:52 Temp 96.5 96.5 Pulse 67 67 Resp 16 16 B/P (MAP) 163/70 Pulse Ox 97 97 Capillary Refill : Less Than 3 Seconds General Appearance: WD/WN, no apparent distress, other (SMILING, MOVES WITHOUT DIFFICULTY, DOES NOT APPEAR TO BE ILL OR IN ANY DISCOMFORT OR DISTRESS. ) HEENT: PERRL/EOMI Respiratory: normal breath sounds, no respiratory distress, no accessory muscle use Cardiovascular: regular rate, rhythm, no murmur Gastrointestinal: normal bowel sounds, soft, no organomegaly, no pulsatile mass Extremities: other (RIGHT LOWER LEG AMPUTATION, LEFT LEG WITHOUT EDEMA. 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, alert, normal mood/affect, oriented x 3 Skin: normal color, warm/dry Progress/Results/Core Measures Results/Orders Lab Results Laboratory Tests Test 11/20/16 09:25 11/20/16 10:11 Range/Units White Blood Count 5.1 4.3-11.0 10^3/uL Red Blood Count 4.33 L 4.35-5.85 10^6/uL Hemoglobin 13.4 13.3-17.7 G/DL Hematocrit 40 40-54 % Mean Corpuscular Volume 92 80-99 FL Mean Corpuscular Hemoglobin 31 25-34 PG Mean Corpuscular Hemoglobin Concent 34 32-36 G/DL Red Cell Distribution Width 13.3 10.0-14.5 % Platelet Count 158 130-400 10^3/uL Mean Platelet Volume 9.9 7.4-10.4 FL Neutrophils (%) (Auto) 75 42-75 % Lymphocytes (%) (Auto) 16 12-44 % Monocytes (%) (Auto) 7 0-12 % Eosinophils (%) (Auto) 1 0-10 % Basophils (%) (Auto) 0 0-10 % Neutrophils # (Auto) 3.9 1.8-7.8 X 10^3 Lymphocytes # (Auto) 0.8 L 1.0-4.0 X 10^3 Monocytes # (Auto) 0.4 0.0-1.0 X 10^3 Eosinophils # (Auto) 0.1 0.0-0.3 10^3/uL Basophils # (Auto) 0.0 0.0-0.1 10^3/uL Sodium Level 143 135-145 MMOL/L Potassium Level 3.6 3.6-5.0 MMOL/L Chloride Level 101 98-107 MMOL/L Carbon Dioxide Level 31 21-32 MMOL/L Anion Gap 11 5-14 MMOL/L Blood Urea Nitrogen 22 H 7-18 MG/DL Creatinine 1.34 H 0.60-1.30 MG/DL Estimat Glomerular Filtration Rate 54 BUN/Creatinine Ratio 16 Glucose Level 149 H 70-105 MG/DL Calcium Level 9.5 8.5-10.1 MG/DL Total Bilirubin 0.4 0.1-1.0 MG/DL Aspartate Amino Transf (AST/SGOT) 37 H 5-34 U/L Alanine Aminotransferase (ALT/SGPT) 26 0-55 U/L Alkaline Phosphatase 69 40-136 U/L Total Protein 6.9 6.4-8.2 GM/DL Albumin 4.2 3.2-4.5 GM/DL Amylase Level 26 25-125 U/L Lipase 4 L 8-78 U/L Urine Color YELLOW Urine Clarity CLEAR Urine pH 5 5-9 Urine Specific [place] 1.025 H 1.016-1.022 Urine Protein 1+ H NEGATIVE Urine Glucose (UA) NEGATIVE NEGATIVE Urine Ketones 2+ H NEGATIVE Urine Nitrite NEGATIVE NEGATIVE Urine Bilirubin NEGATIVE NEGATIVE Urine Urobilinogen NORMAL NORMAL MG/DL Urine Leukocyte Esterase NEGATIVE NEGATIVE Urine RBC (Auto) 1+ H NEGATIVE Urine RBC NONE /HPF Urine WBC 0-2 /HPF Urine Crystals NONE /LPF Urine Bacteria NEGATIVE /HPF Urine Casts NONE /LPF Urine Mucus TRACE /LPF Urine Culture Indicated NO My Orders Orders - GRACE COX DO Accucheck Stat ONCE (11/20/16 08:47) Saline Lock/Iv-Start (11/20/16 08:47) Amylase (11/20/16 08:47) Cbc With Automated Diff (11/20/16 08:47) Comprehensive Metabolic Panel (11/20/16 08:47) Lipase (11/20/16 08:47) Ua Culture If Indicated (11/20/16 08:47) Ondansetron Injection (Zofran Injectio (11/20/16 09:00) Saline Lock/Iv-Start (11/20/16 08:47) Ns Iv 1000 Ml (Sodium Chloride 0.9%) (11/20/16 08:47) Medications Given in ED Current Medications Medications Dose Ordered Sig/Isaias Route Start Time Stop Time Status Last Admin Dose Admin Ondansetron HCl 4 mg ONCE ONCE IVP 11/20/16 09:00 11/20/16 09:01 DC 11/20/16 09:21 4 MG Sodium Chloride 1,000 ml @ 0 mls/hr Q0M ONCE IV 11/20/16 08:47 11/20/16 08:48 DC 11/20/16 09:21 1,000 MLS/HR Vital Signs/I&O Vital Sign - Last 12Hours 11/20/16 11/20/16 08:17 10:52 Temp 96.5 96.5 Pulse 67 67 Resp 16 16 B/P (MAP) 163/70 Pulse Ox 97 97 Blood Pressure Mean: 101 Progress Note : Progress Note SYMPTOMS COMPLETELY RESOLVED WITH ZOFRAN, FEELS MUCH BETTER Departure Impression Impression: Primary Impression: Gastroenteritis Additional Impression: IDDM (insulin dependent diabetes mellitus) Disposition: 01 HOME, SELF-CARE Condition: Improved Departure-Patient Inst. Referrals: SKYLAR GELLER MD (PCP/Family) Primary Care Physician Patient Instructions: Sick Day Management for Diabetics, Viral Gastroenteritis , Adult (DC) Add. Discharge Instructions: CLEAR LIQUIDS--WATER, BROTH, JELLO, GATORADE WHEN YOUR NAUSEA IS BETTER, ADD BRATS DIET TO CLEAR LIQUIDS--BANANAS, RICE, APPLESAUCE, TOAST, SALTINES FOLLOW UP WITH YOUR DR TOMORROW IF NO BETTER All discharge instructions reviewed with patient and/or family. Voiced understanding. Scripts Ondansetron (Zofran Odt) 4 Mg Tab.rapdis 4 MG PO Q4H for Nausea/Vomiting, #10 TAB Prov: GRACE COX DO 11/20/16 GRACE COX DO Nov 20, 2016 10:48
[2016-11-20 10:52] VITALS: BP 163/70
== END 2016-11-20 10:52 | disposition home or self-care (01) ==
LOC: EDUNIT# 07:46 → ER 07:47
DX: K59.03 Drug induced constipation (principal); E11.40 Type 2 diabetes mellitus with diabetic neuropathy, unspecified; F41.9 Anxiety disorder, unspecified; F32.9 Major depressive disorder, single episode, unspecified; E03.9 Hypothyroidism, unspecified; I25.10 Atherosclerotic heart disease of native coronary artery without angina pectoris; I25.2 Old myocardial infarction; I10 Essential (primary) hypertension; Z79.4 Long term (current) use of insulin; Z89.611 Acquired absence of right leg above knee; Z95.1 Presence of aortocoronary bypass graft; Z82.49 Family history of ischemic heart disease and other diseases of the circulatory system; Z80.9 Family history of malignant neoplasm, unspecified; F17.290 Nicotine dependence, other tobacco product, uncomplicated; T50.905A Adverse effect of unspecified drugs, medicaments and biological substances, initial encounter
CPT/HCPCS: 36415; 80053; 81000; 82150; 83690; 85025; 96374

== ENCOUNTER → 2016-12-08 | Outpatient (CLI) | payer MEDICARE ==
[~2016-12-08] MED LIST changes: +ONDA4TAB8 PO
--- NOTE | 2016-12-08 11:02 | Diagnostic Imaging Report ---
EXAMINATION: DEXA scan. INDICATION: Screening for osteoporosis. COMPARISON: There are no prior studies available for comparison. TECHNIQUE: The bone mineral density of the hips and spine was measured. FINDINGS: The T score for the spine and left hip is -1.0. This value is at the lowest end of normal. The T score for the right hip is -1.4. This falls within the range of osteopenia. IMPRESSION: The bone mineral density of the spine and left hip is at the lowest end of normal. There is also osteopenia of the right hip. Dictated by: Dictated on workstation # [id number]
== END ==
LOC: RAD 09:30
PROVIDERS: ATTEND Internal Medicine Hematology & Oncology
DX: M85.88 Other specified disorders of bone density and structure, other site (principal); M84.371A Stress fracture, right ankle, initial encounter for fracture; M84.363A Stress fracture, right fibula, initial encounter for fracture
CPT/HCPCS: 77080

== ENCOUNTER 2016-12-15 12:39 | Outpatient (RCR) | payer MEDICARE ==
[2016-12-15 13:05] LABS: BASOPHILS % (AUTO) 1 % (0-10); EOSINOPHILS # (AUTO) 0.1 10^3/uL (0.0-0.3); EOSINOPHILS % (AUTO) 3 % (0-10); LYMPHOCYTES # (AUTO) 1.5 X 10^3 (1.0-4.0); LYMPHOCYTES % (AUTO) 36 % (12-44); MEAN CORPUSCULAR HEMOGLOBIN 32 PG (25-34); MEAN CORPUSCULAR HGB CONC 34 G/DL (32-36); MEAN CORPUSCULAR VOLUME 94 FL (80-99); MEAN PLATELET VOLUME 9.7 FL (7.4-10.4); MONOCYTES # (AUTO) 0.3 X 10^3 (0.0-1.0); MONOCYTES % (AUTO) 7 % (0-12); NEUTROPHILS # (AUTO) 2.3 X 10^3 (1.8-7.8); NEUTROPHILS % (AUTO) 54 % (42-75); PLATELET COUNT 147 10^3/uL (130-400); RED CELL DISTRIBUTION WIDTH 13.2 % (10.0-14.5); WHITE BLOOD COUNT 4.3 10^3/uL (4.3-11.0)
[2016-12-15 13:25] LABS: ALBUMIN 3.5 GM/DL (3.2-4.5); BILIRUBIN,TOTAL 0.3 MG/DL (0.1-1.0); CALCIUM 8.9 MG/DL (8.5-10.1); CREATININE SERUM 1.57 MG/DL (0.60-1.30); POTASSIUM 4.3 MMOL/L (3.6-5.0); TOTAL PROTEIN 5.5 GM/DL (6.4-8.2)
[2016-12-16 05:55] LABS: LIGHT CHAIN KAPPA SERUM QUANT 30.55 mg/L (3.30-19.40); LIGHT CHAIN LAMBDA SERUM QUANT 12.98 mg/L (5.71-26.30)
== END 2016-12-31 | disposition home or self-care (01) ==
LOC: ONC 12:39
PROVIDERS: ATTEND Internal Medicine Hematology & Oncology
DX: D47.2 Monoclonal gammopathy (principal); N18.3 Chronic kidney disease, stage 3 (moderate); E11.22 Type 2 diabetes mellitus with diabetic chronic kidney disease; G60.9 Hereditary and idiopathic neuropathy, unspecified; D63.8 Anemia in other chronic diseases classified elsewhere; M85.80 Other specified disorders of bone density and structure, unspecified site; E78.00 Pure hypercholesterolemia, unspecified; E03.9 Hypothyroidism, unspecified; Z89.511 Acquired absence of right leg below knee; I25.10 Atherosclerotic heart disease of native coronary artery without angina pectoris; D61.818 Other pancytopenia; I25.2 Old myocardial infarction; Z79.899 Other long term (current) drug therapy; Z79.4 Long term (current) use of insulin
CPT/HCPCS: 36415; 80053; 82306; 82784; 83883; 85025; 99213

== ENCOUNTER → 2017-04-19 | Outpatient (CLI) | payer MEDICARE ==
[2017-04-19 07:30] LABS: HEMOGLOBIN 11.9 G/DL (13.3-17.7); MEAN PLATELET VOLUME 9.4 FL (7.4-10.4); RED BLOOD COUNT 3.79 10^6/uL (4.35-5.85); RED CELL DISTRIBUTION WIDTH 12.8 % (10.0-14.5)
[2017-04-19 07:34] LABS: BILIRUBIN,URINE NEGATIVE (NEGATIVE); CLARITY,URINE CLEAR; COLOR,URINE YELLOW; GLUCOSE, URINE (UA) 4+ (NEGATIVE); KETONES,URINE NEGATIVE (NEGATIVE); LEUKOCYTE ESTERASE ,URINE NEGATIVE (NEGATIVE); NITRITE,URINE NEGATIVE (NEGATIVE); PH,URINE 6 (5-9); PROTEIN,URINE NEGATIVE (NEGATIVE); UROBILINOGEN,URINE NORMAL (NORMAL)
[2017-04-19 07:50] LABS: BACTERIA,URINE NEGATIVE /HPF; SQUAMOUS EPITHELIAL CELL,UR RARE /HPF
[2017-04-19 07:51] LABS: RBC,URINE RARE /HPF
[2017-04-19 08:06] LABS: URINE CREATININE FOR RATIO 49 MG/DL (30-125); URINE PROTEIN FOR RATIO ONLY < 6 MG/DL (6-12)
[2017-04-19 08:42] LABS: ALBUMIN 3.7 GM/DL (3.2-4.5); CREATININE SERUM 1.54 MG/DL (0.60-1.30); PHOSPHORUS 3.6 MG/DL (2.3-4.7); POTASSIUM 4.2 MMOL/L (3.6-5.0)
== END ==
LOC: LAB 07:04
PROVIDERS: ATTEND Nurse Practitioner
DX: I12.9 Hypertensive chronic kidney disease with stage 1 through stage 4 chronic kidney disease, or unspecified chronic kidney disease (principal); E11.22 Type 2 diabetes mellitus with diabetic chronic kidney disease; N18.3 Chronic kidney disease, stage 3 (moderate); E44.1 Mild protein-calorie malnutrition; D61.818 Other pancytopenia; N25.81 Secondary hyperparathyroidism of renal origin; D63.1 Anemia in chronic kidney disease; D47.2 Monoclonal gammopathy; E87.3 Alkalosis; E78.5 Hyperlipidemia, unspecified; E87.5 Hyperkalemia; R80.9 Proteinuria, unspecified
CPT/HCPCS: 36415; 80069; 81000; 82306; 82570; 82728; 83540; 84156; 85027

== ENCOUNTER → 2017-04-19 | Outpatient (CLI) | payer MEDICARE ==
[2017-04-19 08:14] LABS: ALBUMIN 3.7 GM/DL (3.2-4.5); BILIRUBIN,TOTAL 0.2 MG/DL (0.1-1.0); CALCIUM 8.9 MG/DL (8.5-10.1); CREATININE SERUM 1.55 MG/DL (0.60-1.30); POTASSIUM 4.2 MMOL/L (3.6-5.0)
[2017-04-19 08:25] LABS: FREE T4 (FREE THYROXINE) 1.04 NG/DL (0.70-1.48)
== END ==
LOC: LAB 06:58
PROVIDERS: ATTEND Internal Medicine
DX: E03.4 Atrophy of thyroid (acquired) (principal); E10.8 Type 1 diabetes mellitus with unspecified complications
CPT/HCPCS: 36415; 80053; 82043; 83036; 84439; 84443

== ENCOUNTER 2017-08-09 12:47 | Outpatient (RCR) | payer MEDICARE ==
[~2017-08-09 12:47] MED LIST changes: -CLON1TAB3 PO; +CLON1TAB4 PO
[2017-08-09 13:18] LABS: BASOPHILS % (AUTO) 1 % (0-10); EOSINOPHILS # (AUTO) 0.1 10^3/uL (0.0-0.3); EOSINOPHILS % (AUTO) 3 % (0-10); HEMATOCRIT 31 % (40-54); HEMOGLOBIN 10.7 G/DL (13.3-17.7); LYMPHOCYTES # (AUTO) 0.9 X 10^3 (1.0-4.0); LYMPHOCYTES % (AUTO) 24 % (12-44); MEAN CORPUSCULAR HEMOGLOBIN 32 PG (25-34); MEAN CORPUSCULAR HGB CONC 34 G/DL (32-36); MEAN CORPUSCULAR VOLUME 95 FL (80-99); MEAN PLATELET VOLUME 9.3 FL (7.4-10.4); MONOCYTES # (AUTO) 0.3 X 10^3 (0.0-1.0); MONOCYTES % (AUTO) 7 % (0-12); NEUTROPHILS # (AUTO) 2.6 X 10^3 (1.8-7.8); NEUTROPHILS % (AUTO) 66 % (42-75); PLATELET COUNT 153 10^3/uL (130-400); RED BLOOD COUNT 3.32 10^6/uL (4.35-5.85); RED CELL DISTRIBUTION WIDTH 13.8 % (10.0-14.5)
[2017-08-09 13:40] LABS: ALBUMIN 3.6 GM/DL (3.2-4.5); BILIRUBIN,TOTAL 0.3 MG/DL (0.1-1.0); CALCIUM 8.6 MG/DL (8.5-10.1); CREATININE SERUM 1.4 MG/DL (0.60-1.30); POTASSIUM 4.8 MMOL/L (3.6-5.0); TOTAL PROTEIN 5.7 GM/DL (6.4-8.2)
== END 2017-11-07 | disposition home or self-care (01) ==
LOC: ONC 12:47
PROVIDERS: ATTEND Internal Medicine Hematology & Oncology
DX: D47.2 Monoclonal gammopathy (principal); N18.3 Chronic kidney disease, stage 3 (moderate); E11.22 Type 2 diabetes mellitus with diabetic chronic kidney disease; G60.9 Hereditary and idiopathic neuropathy, unspecified; D63.8 Anemia in other chronic diseases classified elsewhere; M85.80 Other specified disorders of bone density and structure, unspecified site; E78.00 Pure hypercholesterolemia, unspecified; E03.9 Hypothyroidism, unspecified; Z89.511 Acquired absence of right leg below knee; I25.10 Atherosclerotic heart disease of native coronary artery without angina pectoris; D61.818 Other pancytopenia; I25.2 Old myocardial infarction; Z79.899 Other long term (current) drug therapy; Z79.4 Long term (current) use of insulin
CPT/HCPCS: 36415; 80053; 82232; 82784; 83615; 83883; 84155; 84165; 85025; 99213

== ENCOUNTER → 2017-08-09 | Outpatient (CLI) | payer MEDICARE ==
[2017-08-09 14:47] LABS: CHOLESTEROL 156 MG/DL (< 200); HDL CHOLESTEROL 55 MG/DL (40-60); TRIGLYCERIDES 203 MG/DL (<150); VLDL CHOLESTEROL 41 MG/DL (5-40)
== END ==
LOC: LAB 14:22
PROVIDERS: ATTEND Family Medicine
DX: E78.2 Mixed hyperlipidemia (principal)
CPT/HCPCS: 36415; 80061

== ENCOUNTER 2018-02-13 13:18 | Outpatient (RCR) | payer MEDICARE ==
[~2018-02-13 13:18] MED LIST changes: +CLON1TAB13 PO; -CLON1TAB4 PO; -OXYC-202 PO; +OXYC1TAB12 PO
[2018-02-13 13:30] LABS: BASOPHILS % (AUTO) 0 % (0-10); EOSINOPHILS # (AUTO) 0.2 10^3/uL (0.0-0.3); EOSINOPHILS % (AUTO) 3 % (0-10); HEMATOCRIT 34 % (40-54); HEMOGLOBIN 11.2 G/DL (13.3-17.7); LYMPHOCYTES % (AUTO) 17 % (12-44); MEAN CORPUSCULAR HEMOGLOBIN 30 PG (25-34); MEAN CORPUSCULAR HGB CONC 33 G/DL (32-36); MEAN CORPUSCULAR VOLUME 91 FL (80-99); MEAN PLATELET VOLUME 9.8 FL (7.4-10.4); MONOCYTES # (AUTO) 0.3 X 10^3 (0.0-1.0); MONOCYTES % (AUTO) 5 % (0-12); NEUTROPHILS # (AUTO) 4.3 X 10^3 (1.8-7.8); NEUTROPHILS % (AUTO) 74 % (42-75); PLATELET COUNT 152 10^3/uL (130-400); RED CELL DISTRIBUTION WIDTH 13.3 % (10.0-14.5); WHITE BLOOD COUNT 5.8 10^3/uL (4.3-11.0)
[2018-02-13 13:50] LABS: ALBUMIN 3.9 GM/DL (3.2-4.5); BILIRUBIN,TOTAL 0.4 MG/DL (0.1-1.0); CALCIUM 9.3 MG/DL (8.5-10.1); CREATININE SERUM 1.42 MG/DL (0.60-1.30); POTASSIUM 4.5 MMOL/L (3.6-5.0); TOTAL PROTEIN 6.5 GM/DL (6.4-8.2)
== END 2018-05-14 | disposition home or self-care (01) ==
LOC: ONC 13:18
PROVIDERS: ATTEND Internal Medicine Hematology & Oncology
DX: D47.2 Monoclonal gammopathy (principal); D63.8 Anemia in other chronic diseases classified elsewhere; N18.3 Chronic kidney disease, stage 3 (moderate); E11.22 Type 2 diabetes mellitus with diabetic chronic kidney disease; G60.9 Hereditary and idiopathic neuropathy, unspecified; M85.80 Other specified disorders of bone density and structure, unspecified site; E78.00 Pure hypercholesterolemia, unspecified; E03.9 Hypothyroidism, unspecified; I25.10 Atherosclerotic heart disease of native coronary artery without angina pectoris; I25.2 Old myocardial infarction; Z79.899 Other long term (current) drug therapy; Z79.4 Long term (current) use of insulin; Z89.511 Acquired absence of right leg below knee
CPT/HCPCS: 36415; 80053; 82232; 82784; 83615; 83883; 84155; 84165; 85025; 99213

== ENCOUNTER 2018-05-02 14:33 | Emergency (ER) | payer MEDICARE ==
[~2018-05-02] VITALS: Ht 175.3 cm; Wt 73.9 kg
--- OUTSIDE RECORDS SUMMARY | 2018-05-02 14:38 | XMS REPORT | Clinical Summary ---
Author Author [facility] Organization [facility] Address Unknown Phone Unavailable Care Team Providers Care Destination Imagination Coordinator Name Role Phone Suzanna Velez MD Unavailable Merrick Resendez DO Unavailable Humza Kapoor MD PCP Shireen Ortiz DO Unavailable Fabrizio Simmons MD Unavailable Source Comments Some departments are not documenting in the electronic medical record. If you do not see the information that you expected, contact Release of Information in the Health Information Management department at [phone] for further assistance in locating additional records.[facility] Allergies No Known Allergies Medications End Date Status Medication Sig Dispensed Refills Start Date Active metoprolol XL (TOPROL XL) Take 12.5 mg 0 25 mg tablet by mouth daily. Active furosemide (LASIX) 40 mg Take 40 mg by 0 tablet mouth every 48 hours. Active aspirin EC 81 mg tablet Take 81 mg by 0 mouth daily. Active fish oil /omega-3 fatty Take 1 Cap by 0 acids (SEA-OMEGA) mouth daily. 340/1000 mg capsule Active PV W-O NADIA/FERROUS Take by 0 FUMARATE/FA (M-VIT PO) mouth. Active ASCORBATE CALCIUM Take by 0 (VITAMIN C PO) mouth. Active docusate (COLACE) 100 mg Take 100 mg 0 capsule by mouth daily. Active ferrous sulfate 325 mg Take 325 mg 0 (65 mg iron) tablet by mouth daily. Active insulin aspart (NOVOLOG) Inject 30 0 100 unit/mL Units into injectionIndications: area(s) as Uses 30 units daily with directed insulin pump once. Indications: Uses 30 units daily with insulin pump Active insulin pump -ASPART- by SubQ Pump 0 Patients Own route. Active HYDROcodone/acetaminophen Take 1 Tab by 0 (+) (LORTAB, NORCO) mouth every 6 6 10/325 mg tablet hours as needed Active levothyroxine (SYNTHROID) Take 200 mcg 0 200 mcg tablet by mouth 6 daily. Active insulin lispro(+) Inject 30 0 (HUMALOG) 100 unit/mL units maximum 8 injection daily via pump. ICD-10: E10.8. Active atorvastatin (LIPITOR) 80 80 mg. 0 mg tablet 8 Active nitroglycerin (NITROSTAT) Place 0.3 mg 0 0.3 mg tablet under tongue 1 every 5 minutes as needed. Active pregabalin (LYRICA) 100 TAKE ONE 0 mg capsule CAPSULE BY 8 MOUTH EVERY 12 HOURS Active fentaNYL (DURAGESIC) 100 Apply 1 Patch 0 mcg/hr patch to skin as 8 directed every third day. Max Daily Amount: 1 Patch Active clonazePAM (KLONOPIN) 1 Take 1.5 60 tablet 0 mg tablet tablets by 8 mouth daily. 1mg HS and 0.25mg AM Active ARIPiprazole (ABILIFY) 10 Take one 90 tablet 1 mg tablet tablet by 8 mouth daily. Active buPROPion XL (WELLBUTRIN Take one 90 tablet 1 XL) 150 mg tablet by 8 tabletIndications: MARGIE mouth every (generalized anxiety morning. Do disorder) not crush or chew. Active buPROPion XL (WELLBUTRIN Take one 90 tablet 1 XL) 300 mg tablet by 8 tabletIndications: mouth every Anxiousness associated morning. with Depression Active busPIRone (BUSPAR) 15 mg Take one 180 tablet 1 tabletIndications: MARGIE tablet by 8 (generalized anxiety mouth three disorder) times daily. Active sertraline (ZOLOFT) 100 Take two 180 tablet 0 mg tabletIndications: MARGIE tablets by 8 (generalized anxiety mouth daily. disorder) Active Problems Problem Noted Date Bipolar 2 disorder, major depressive episode 06/30/2017 Monoclonal gammopathy 04/27/2017 Overview: Overview: Followed by [facility] Overview: Followed by [facility] Overview: Overview: Followed by [facility] Recurrent major depressive disorder, in full remission 06/20/2016 Diabetic retinopathy 06/03/2014 Dysthymia 11/07/2013 MDD (major depressive disorder), recurrent, in partial remission 05/14/2013 HTN (hypertension) 04/08/2013 HLD (hyperlipidemia) 04/08/2013 CAD (coronary artery disease) 04/08/2013 Hypothyroid 04/08/2013 Diabetes 04/08/2013 Anemia 04/08/2013 MARGIE (generalized anxiety disorder) 04/08/2013 Bilateral carotid artery stenosis 10/31/2011 Thrombocytopenia 10/31/2011 CKD (chronic kidney disease) stage 3, GFR 30-59 ml/min 11/02/2010 Resolved Problems Problem Noted Date Resolved Date MDD (major depressive disorder), recurrent episode, mild 10/22/20142015 MDD (major depressive disorder), recurrent episode, moderate 09/16/2013 MDD (major depressive disorder), recurrent episode, severe 04/08/201309/2015 Encounters Care Team Description Date Type Specialty Mychal Covarrubias MD MARGIE (generalized anxiety disorder) 02/08/2018 Refill Psychiatry from Last 3 Months Immunizations Name Dates Previously Given Next Due FLU VACCINE >3YO 12/18/2014 Flu Vaccine=>3 YO 01/01/2013 (Historical) Flu Vaccine=>6 Months 01/03/2017 Quadrivalent PF Flu Vaccine 12/19/2015 Quadrivalent=>3 Yo (Preservative Free) Influenza Vaccine Nasal 01/02/2016 Pneumococcal Vaccine 03/06/2014 (23-Briana Adult) Family History Medical History Relation Name Comments Other Father PTSD from WWII and [place] Anxiety Maternal Grandmother Anxiety Mother Relation Name Status Comments Father Maternal Grandmother Mother Social History Date Tobacco Use Types Packs/Day Years Used Never Smoker Smokeless Tobacco: Never Used Alcohol Use Drinks/Week oz/Week Comments No 0 Standard 0.0 drinks or equivalent Sex Assigned at Date Recorded Not on file Industry Job Start Date Occupation Not on file Not on file Not on file Travel End Travel History Travel Start No recent travel history available. Last Filed Vital Signs Time Taken Vital Sign Reading 01/18/2018 1:17 PM CDT Blood Pressure 162/117 01/18/2018 1:17 PM CDT Pulse 59 - Temperature - 08/23/2017 1:19 PM CDT Respiratory Rate 16 - Oxygen Saturation - - Inhaled Oxygen - Concentration 01/18/2018 1:17 PM CDT Weight 74.8 kg (165 lb) 01/18/2018 1:17 PM CDT Height 177.8 cm (5' 10") 01/18/2018 1:17 PM CDT Body Mass Index 23.68 Plan of Treatment Health Maintenance Due Date Last Done Comments HEPATITIS C SCREENING 1954 PHYSICAL (COMPREHENSIVE) 1961 EXAM HIV SCREENING 1969 DILATED EYE EXAM 1972 DTAP/TDAP VACCINES (1 - 1972 Tdap) FOOT EXAM 1972 MICROALBUMIN 1972 COLORECTAL CANCER 2004 SCREENING SHINGLES RECOMBINANT 2004 VACCINE (1 of 2) INFLUENZA VACCINE 11/01/2017 01/03/2017, 01/03/2017, 01/02/2016, Additional history exists HBA1C 01/12/2018 07/13/2017 PNEUMONIA VACCINE (DM) Completed 03/06/2014 Results Not on filefrom Last 3 Months Insurance Payer Benefit Subscriber ID Type Phone Address Plan / Group MEDICARE MEDICARE xxxxxxxxxx Medicare PART A AND B [facility] AAR xxxxxxxxxxx PPO Advance Directives Patient has advance care planning documents on file. For more information, please contact: [facility] [address] [address] [place] [address]
--- OUTSIDE RECORDS SUMMARY | 2018-05-02 14:38 | XMS REPORT | Encounter Summary ---
Author Author [facility] Organization [facility] Address Unknown Phone Unavailable Care Team Providers Care Coal Yard Supervisor Name Role Phone Suzanna Velez MD Unavailable Merrick Resendez DO Unavailable Humza Kapoor MD PCP Shireen Ortiz DO Unavailable Fabrizio Simmons MD Unavailable Reason for Visit * Reason Comments Medication Refill Encounter Details Care Team Description Date Type Department Mychal Covarrubias MD [address] [facility] [address] [place] [address] MARGIE (generalized anxiety disorder) 02/08/2018 Refill [facility] [address] [place] [address] Social History Date Tobacco Use Types Packs/Day Years Used Never Smoker Smokeless Tobacco: Never Used Alcohol Use Drinks/Week oz/Week Comments No 0 Standard 0.0 drinks or equivalent Sex Assigned at Date Recorded Not on file Industry Job Start Date Occupation Not on file Not on file Not on file Travel End Travel History Travel Start No recent travel history available. as of this encounter Plan of Treatment Not on fileas of this encounter Visit Diagnoses Diagnosis MARGIE (generalized anxiety disorder) Generalized anxiety disorder in this encounter
--- NOTE | 2018-05-02 14:40 | NUR ---
PT NOT COOPERATIVE ENOUGH TO PERFORM [facility].
[2018-05-02] MEDS ORDERED: NS IV 1000 ML 1,000 ML IV ONE ×3 (14:50→17:31)
[2018-05-02 14:57] LABS: BASOPHILS % (AUTO) 0 % (0-10); EOSINOPHILS % (AUTO) 0 % (0-10); HEMATOCRIT 36 % (40-54); HEMOGLOBIN 12.3 G/DL (13.3-17.7); LYMPHOCYTES # (AUTO) 0.8 X 10^3 (1.0-4.0); LYMPHOCYTES % (AUTO) 6 % (12-44); MEAN CORPUSCULAR HEMOGLOBIN 31 PG (25-34); MEAN CORPUSCULAR HGB CONC 34 G/DL (32-36); MEAN CORPUSCULAR VOLUME 90 FL (80-99); MEAN PLATELET VOLUME 11.9 FL (7.4-10.4); MONOCYTES # (AUTO) 0.8 X 10^3 (0.0-1.0); MONOCYTES % (AUTO) 6 % (0-12); NEUTROPHILS # (AUTO) 11.6 X 10^3 (1.8-7.8); NEUTROPHILS % (AUTO) 88 % (42-75); PLATELET COUNT 189 10^3/uL (130-400); RED CELL DISTRIBUTION WIDTH 13.7 % (10.0-14.5); WHITE BLOOD COUNT 13.2 10^3/uL (4.3-11.0)
[2018-05-02] MEDS ORDERED: inSUlin (REGULAR) HUMAN 1 UNIT/0.01 ML (CHARGE PER UNIT) IV ONE ×3 (15:00→17:45)
[2018-05-02 15:09] LABS: BILIRUBIN,URINE NEGATIVE (NEGATIVE); CLARITY,URINE CLEAR; COLOR,URINE YELLOW; GLUCOSE, URINE (UA) 4+ (NEGATIVE); KETONES,URINE 4+ (NEGATIVE); LEUKOCYTE ESTERASE ,URINE NEGATIVE (NEGATIVE); NITRITE,URINE NEGATIVE (NEGATIVE); PH,URINE 5 (5-9); PROTEIN,URINE NEGATIVE (NEGATIVE); UROBILINOGEN,URINE NORMAL (NORMAL)
[2018-05-02 15:10] LABS: FIBRIN DEGRADATION PRODUCTS 3.34 UG/ML (0.00-0.49); INR 1.5 (0.8-1.4); PROTHROMBIN TIME PATIENT 18.5 SEC (12.2-14.7)
[2018-05-02 15:17] LABS: SQUAMOUS EPITHELIAL CELL,UR RARE /HPF
[2018-05-02 15:27] LABS: ALBUMIN 3.9 GM/DL (3.2-4.5); BAND NEUTROPHILS 11 %; BASOPHILS % (MANUAL) 0 %; BILIRUBIN,TOTAL 0.8 MG/DL (0.1-1.0); CALCIUM 9.5 MG/DL (8.5-10.1); CREATININE SERUM 2.56 MG/DL (0.60-1.30); EOSINOPHILS % (MANUAL) 0 %; LYMPHOCYTES % (MANUAL) 5 %; MONOCYTES % (MANUAL) 4 %; NEUTROPHILS % (MANUAL) 80 %; POTASSIUM 5.1 MMOL/L (3.6-5.0)
[2018-05-02 15:28] LABS: RBC MORPH NORMAL
[2018-05-02] MEDS ORDERED: LORazepam INJ 2 MG/ML (ATIVAN) VIAL ONE (15:35)
[2018-05-02] MEDS ORDERED: LORazepam INJ 2 MG/ML (ATIVAN) VIAL IVP ONE (15:45)
--- NOTE | 2018-05-02 15:55 | Diagnostic Imaging Report ---
CLINICAL INDICATION: Patient was found in his home laying on the floor. Patient with change in level of consciousness. EXAM: Head CT without IV contrast. COMPARISON: None. FINDINGS: There is motion artifact limiting evaluation of the anatomical structures. There is a small area of amorphous low attenuation involving the posterior left temporal lobe region seen on the axial sequence 4, image 18. Unknown if this represents an area of true parenchymal low density versus volume averaging from sulci. Otherwise, there is no other concern for acute cerebral infarct, intracranial hemorrhage, or gross mass effect. The brain parenchymal volume appears appropriate for patient's age. There is normal la-white matter distinction. There is no significant midline shift or herniation. There is no evidence of hydrocephalus. The basal cisterns are unremarkable. The skull, extracranial soft tissue, and orbits are unremarkable. The paranasal sinuses are unremarkable. Temporal bones show no significant abnormality. IMPRESSION: 1: There is a small area of low attenuation involving the posterior left temporal lobe. Unknown if this represents a true area of brain parenchymal low density versus volume averaging of sulci. MRI of the brain would better evaluate. An infarct or other parenchymal abnormality in this region cannot be completely excluded. 2: Otherwise, age-related brain parenchymal changes. Results of this report were discussed with Mich Crocker for Dr. Jeff Crocker via the telephone on 05/02/2018 at 1545 hours. Dictated by: Dictated on workstation # [id number]
--- NOTE | 2018-05-02 15:56 | Diagnostic Imaging Report ---
EXAM: CHEST 1 VIEW, AP/PA ONLY. INDICATION: Altered mental status. Hyperglycemia. COMPARISON: Chest radiograph 05/07/2012. FINDINGS: Normal heart size and central pulmonary vascularity. New airspace opacities in the right lower lobe and left upper lobe. No pleural effusion or pneumothorax. Sternotomy. Mediastinal clips. No acute osseous findings. IMPRESSION: New airspace opacities in the right lower lobe greater than left upper lobe suspicious for pneumonitis. Recommend follow-up to resolution. Dictated by: Dictated on workstation # [id number]
--- NOTE | 2018-05-02 16:00 | NUR ---
PT FOUND TO HAVE 3 FENTANYL PATCHES. TWO ON RIGHT ARM, ONE OF LEFT BUTTOX. BOTH PATCHES REMOVED FROM RIGHT ARM.
[2018-05-02 16:02] LABS: FREE T4 (FREE THYROXINE) 0.96 NG/DL (0.70-1.48)
--- NOTE | 2018-05-02 16:11 | Consultation-Cardiology ---
HPI-Cardiology Cardiology Consultation: Date of Consultation 05/02/18 Date of Admission Attending Physician Admitting Physician Humza Kapoor MD Consulting Physician Quan MENDOZA MD HPI: Time Seen by a Provider: 16:11 Chief Complaint: Non-STEMI This is a 63-year-old gentleman who has cardiac history and follows with [facility] in [place]. The patient also has history of diabetes. He presented to the ER via EMS. He was found on the floor. He was also found to be in DKA and rhabdomyolysis with significantly elevated CK and creatinine. Of note he was also found to have significant elevation of troponin. His mental status is questionable however when I directly asked him whether he was having any chest pain he denied chest pain. Review of Systems-Cardiology Review of Systems Constitutional: As described under HPI; No As described under HPI, No no symptoms reported, No chills, No fever, No lightheadedness Eyes: No As described under HPI, No no symptoms reported, No blindness, No blurred vision, No contact lenses, No drainage, No decreased acuity, No foreign body sensation, No pain, No vision change Ears/Nose/Throat: No As described under HPI, No no symptoms reported, No chronic hearing loss, No ear discharge, No ear pain, No nasal drainage, No ulcerations Respiratory: No no symptoms reported; As described under HPI; No As described under HPI, No cough, No orthopnea, No shortness of breath, No SOB with excertion Cardiovascular: No no symptoms reported; As described under HPI; No As described under HPI, No chest pain, No edema, No irregular heart rate, No lightheadedness, No palpitations Gastrointestinal: No no symptoms reported, No As described under HPI, No abdomen distended, No abdominal pain, No blood streaked bowels, No constipation , No diarrhea, No nausea, No vomiting, No stool coloration changes Genitourinary: No As described under HPI, No burning, No dysuria, No discharge , No frequency, No flank pain, No hematuria, No urgency Musculoskeletal: As describe under HPI Skin: As described under HPI; No rash, No skin related problems, No ulcerations Psychiatric/Neurological: As described under HPI; No anxiety, No depression, No seizure, No focal weakness, No syncope Hematologic: No bleeding abnormalities DBD-Ehtosg-Nhnoby Hx Patient Social History Alcohol Use: Denies Use Recreational Drug Use: No Smoking Status: Smoker Current Status [facility] Type Used: Pipe Recent Foreign Travel: No Recent Infectious Disease Expo: No Hospitalization with Isolation: Denies Immunizations Up To Date Tetanus Booster (TDap): More than 5yrs Date of Pneumonia Vaccine: Jan 02, 2012 Date of Influenza Vaccine: Jan 13, 2016 Past Medical History PMH As described under Assessment. Family Medical History Family History: Cardiovascular disease 19 MOTHER Allergies and Home Medications Allergies Coded Allergies: No Known Drug Allergies (Unverified , 07/04/09) Home Medications Aspirin 325 Mg Tablet, 325 MG PO DAILY, (Reported) Atorvastatin Calcium 40 Mg Tablet, 40 MG PO HS, (Reported) Bupropion HCl 150 Mg Tab.er.24h, 150 MG PO DAILY, (Reported) TAKES ALONG WITH 300MG TABLET FOR A TOTAL DAILY DOSE OF 450MG Bupropion Hcl 300 Mg Tab.sr.24h, 300 MG PO DAILY, (Reported) TAKES ALONG WITH 150MG TABLET FOR TOTAL DAILY DOSE OF 450MG Buspirone HCl 10 Mg Tablet, 10 MG PO TID, (Reported) Calcium Carbonate/Vitamin D3 1 Each Tablet, 1 TAB PO HS, (Reported) Cephalexin 500 Mg Capsule, 500 MG PO TID Prescribed by: JAMIE VELAZQUEZ on 09/29/16 1441 Clonazepam 1 Mg Tablet, 1 MG PO HS, (Reported) Clonazepam 1 Mg Tablet, 0.5 MG PO DAILY, (Reported) TAKES 1/2 (1MG) TABLET Docusate Sodium 100 Mg Capsule, 100 MG PO BID, (Reported) Fentanyl 1 Ea Patch, 75 MCG TD Q72H, (Reported) Ferrous Sulfate 325 Mg Tablet, 325 MG PO HS, (Reported) Furosemide 20 Mg Tablet, 20 MG PO Q48H, (Reported) Gabapentin 600 Mg Tab, 600 MG PO TID, (Reported) Insulin Lispro 100 Unit/1 Ml Vial, PER PUMP, (Reported) Levothyroxine Sodium 200 Mcg Tablet, 200 MCG PO DAILY, (Reported) Metoprolol Succinate 25 Mg Tab.sr.24h, 12.5 MG PO HS, (Reported) TAKES 1/2 (25MG) TABLET Multivitamin 1 Each Tablet, 1 TAB PO DAILY, (Reported) [place] 3 Polyunsat Fatty Acids 1,000 Mg Cap, 1,000 MG PO QID, (Reported) Ondansetron 4 Mg Tab.rapdis, 4 MG PO Q4H Prescribed by: GRACE COX on 11/20/16 1048 Oxycodone HCl/Acetaminophen 1 Each Tablet, 1 TAB PO Q4H PRN for PAIN, (Reported) Pregabalin 75 Mg Capsule, 75 MG PO BID, (Reported) Sertraline HCl 100 Mg Tablet, 200 MG PO DAILY, (Reported) TAKES 2 (100MG) TABLETS ALONG WITH 50MG TABLET FOR A TOTAL DAILY DOSE OF 250MG Sertraline HCl 50 Mg Tablet, 50 MG PO DAILY, (Reported) TAKES ALONG WITH 2 (100MG) TABLETS FOR A TOTAL DAILY DOSE 250MG Patient Home Medication List Home Medication List Reviewed: Yes Physical Exam-Cardiology Physical Exam Vital Signs/I&O 05/02/18 14:35 Temp 94.0 Pulse 92 Resp 20 B/P (MAP) 146/77 (100) Pulse Ox 100 O2 Delivery Room Air Capillary Refill : Less Than 3 Seconds Constitutional: appears stated age; No apparent distress; well-developed, well- nourished HEENT: PERRL; No normal ENT inspection, No TMs normal, No pharynx normal, No scleral icterus (R), No scleral icterus (L), No pale conjunctivae (R), No pale conjunctivae (L), No photophobia, No TM abnormal (R), No TM abnormal (L), No pharyngeal erythema, No tonsillar exudate, No other, No discharge, No EOMI; hearing is well preserved; No hard of hearing; oral hygience is good; No ulceration, No xanthelasmas are seen Neck: No non-tender, No full range of motion, No supple, No normal inspection, No carotid bruit, No limited range of motion, No lymphadenopathy (R), No lymphadenopathy (L), No tender lateral, No tender midline, No thyromegaly, No other; carotid pulses are 2 + bilaterally; No with good upstrokes Respiratory: No accessory muscle use, No respiratory distress, No chest tender , No chest expansion is symmetric; chest is bilaterally symmetric; No lungs clear to percussion; lungs clear to auscultation; No crackles, No rhonchi, No rales, No stridor, No wheezing, No pleural rub, No other Cardiovascular: regular rate-rhythm; No irregularly irregular, No extra beats, No parasternal heave is noted, No JVD, No edema, No bradycardia; tachycardia; No point of maximal impulse, No cardiac thrills are palpable; S1 and S2; No gallop/S3, No gallop/S4, No diastolic murmur, No systolic murmur, No friction rub, No click, No other Gastrointestinal: No tender, No soft, No round, No distended, No pulsatile mass , No organomegaly, No guarding, No rebound, No tenderness, No hernia, No mass, No audible bowel sounds, No abnormal bowel sounds, No abdominal bruits, No spleenomegaly, No other Rectal: deferred Extremities: normal range of motion, non-tender, normal inspection; No clubbing , No cyanosis, No significant edema Neurologic/Psychiatric: alert, normal mood/affect, power is 5/5 both on sides Skin: No normal color, No warm/dry, No cyanosis, No cool, No diaphoresis, No damp, No ecchymosis, No jaundice, No mottled, No pallor, No rash, No tattoos/ piercings, No ulcerations, No rash on exposed areas, No ulcerations on exposed areas, No other Data Review Labs Laboratory Tests 05/02/18 14:40: Thyroid Stimulating Hormone (TSH) 3.41, Free Thyroxine 0.96, Serum Alcohol < 10 05/02/18 14:42: Glucometer > 600*H 05/02/18 14:49: White Blood Count 13.2H, Red Blood Count 4.03L, Hemoglobin 12.3L, Hematocrit 36L , Mean Corpuscular Volume 90, Mean Corpuscular Hemoglobin 31, Mean Corpuscular Hemoglobin Concent 34, Red Cell Distribution Width 13.7, Platelet Count 189, Mean Platelet Volume 11.9H, Neutrophils (%) (Auto) 88H, Lymphocytes (%) (Auto) 6L, Monocytes (%) (Auto) 6, Eosinophils (%) (Auto) 0, Basophils (%) (Auto) 0, Neutrophils # (Auto) 11.6H, Lymphocytes # (Auto) 0.8L, Monocytes # (Auto) 0.8, Eosinophils # (Auto) 0.0, Basophils # (Auto) 0.0, Neutrophils % (Manual) 80, Lymphocytes % (Manual) 5, Monocytes % (Manual) 4, Eosinophils % (Manual) 0, Basophils % (Manual) 0, Band Neutrophils 11, Blood Morphology Comment NORMAL, Prothrombin Time 18.5H, INR Comment 1.5H, Activated Partial Thromboplast Time 30 , D-Dimer 3.34H, Sodium Level 132L, Potassium Level 5.1H, Chloride Level 89L, Carbon Dioxide Level 11L, Anion Gap 32H, Blood Urea Nitrogen 80H, Creatinine 2.56H, Estimat Glomerular Filtration Rate 25, BUN/Creatinine Ratio 31, Glucose Level 730*H, Calcium Level 9.5, Corrected Calcium 9.6, Total Bilirubin 0.8, Aspartate Amino Transf (AST/SGOT) 242H, Alanine Aminotransferase (ALT/SGPT) 97H , Alkaline Phosphatase 95, Total Creatine Kinase 5634H, Troponin I 13.506*H, Total Protein 7.0, Albumin 3.9 05/02/18 14:54: Urine Color YELLOW, Urine Clarity CLEAR, Urine pH 5, Urine Specific [place] 1.020, Urine Protein NEGATIVE, Urine Glucose (UA) 4+H, Urine Ketones 4+H, Urine Nitrite NEGATIVE, Urine Bilirubin NEGATIVE, Urine Urobilinogen NORMAL, Urine Leukocyte Esterase NEGATIVE, Urine RBC (Auto) 3+H, Urine RBC 5-10H, Urine WBC NONE, Urine Squamous Epithelial Cells RARE, Urine Crystals NONE, Urine Bacteria NONE, Urine Casts NONE, Urine Mucus NEGATIVE, Urine Culture Indicated NO, Urine Opiates Screen NEGATIVE, Urine Oxycodone Screen NEGATIVE, Urine Methadone Screen NEGATIVE, Urine Propoxyphene Screen NEGATIVE, Urine Barbiturates Screen NEGATIVE, Ur Tricyclic Antidepressants Screen NEGATIVE, Urine Phencyclidine Screen NEGATIVE, Urine Amphetamines Screen NEGATIVE, Urine Methamphetamines Screen NEGATIVE, Urine Benzodiazepines Screen NEGATIVE, Urine Cocaine Screen NEGATIVE, Urine Cannabinoids Screen NEGATIVE 05/02/18 16:05: Glucometer > 600*H ECG Impression ECG Initial ECG Rhythm: Normal Sinus Initial ECG Impression: Nonspecific Changes A/P-Cardiology Assessment/Admission Diagnosis DKA, Altered mental status, Leukocytosis, Non-STEMI, Rhabdomyolysis, Acute kidney injury, Elevated LFTs. Plan DKA, insulin drip, IV fluids. Altered mental status, likely due to DKA. Leukocytosis, deferred to ER attending. Non-STEMI, patient has previous history of CAD. Troponin is significantly elevated. Aspirin, Brilinta is recommended. Rhabdomyolysis, IV fluids. Acute kidney injury, likely due to rhabdomyolysis. Give IV fluids. Elevated LFTs. No ICU beds available in our Hospital therefore the patient will likely be transferred to [place]. Critically ill patient. Thank you for your consultation. Please call me if you have any questions. Pranav Mendoza MD, FACP, FACC, FSCAI, FHRS, CCDS Interventional Cardiology Cardiac Electrophysiology Vascular Medicine and Endovascular Interventions Quan MENDOZA MD May 02, 2018 16:11
[2018-05-02 16:12] LABS: AMPHETAMINE SCREEN, URINE NEGATIVE (NEGATIVE); BARBITURATE SCREEN URINE NEGATIVE (NEGATIVE); BENZODIAZEPINES SCREEN URINE NEGATIVE (NEGATIVE); CANNABINOID SCREEN, URINE NEGATIVE (NEGATIVE); COCAINE SCREEN URINE NEGATIVE (NEGATIVE); METHADONE STAT NEGATIVE (NEGATIVE); METHAMPHETAMINE SCREEN URINE S NEGATIVE (NEGATIVE); OPIATE SCREEN URINE NEGATIVE (NEGATIVE); OXYCODONE STAT NEGATIVE (NEGATIVE); PROPOXYPHENE STAT NEGATIVE (NEGATIVE); TRICYCLIC ANTIDEPRESSANTS SCRE NEGATIVE (NEGATIVE)
--- NOTE | 2018-05-02 16:45 | NUR ---
CCOLLAR REMOVED AT 1054
[2018-05-02] MEDS ORDERED: PIPERACILLIN SODIUM/TAZOBACTAM 4.5 GM in NS (IVPB) 100 ML IV ONE (17:15)
--- NOTE | 2018-05-02 17:31 | ED Neurological Problem ---
General Chief Complaint: Altered Mental Status Stated Complaint: AMS Nursing Triage Note: PT BROUGHT IN BY EMS FROM HOME WITH COMPLAINT OF ALTERED MENTAL STATUS. PT DID NOT SHOW UP TO WORK, BOSS WENT TO HOME AND FOUND PT. AFTER ANSWERING THE DOOR PT WENT TO ROOM AND WAS FOUND ON THE FLOOR. BOSS CALLED EMS. EMS REPORTS THAT PT WAS UNABLE TO COMPREHEND INSTRUCTIONS. PER EMS, PTS HOUSE WAS TORN APART. PTS BS FOR EMS WAS ABOVE 500. LAST KNOWN WELL TIME FOR PT WAS LAST MONDAY. PT PLACED IN CCOLLAR AT TIME OF ARRIVAL TO ER. Nursing Sepsis Screen: No Definite Risk Source: patient, family, EMS, old records Exam Limitations: no limitations History of Present Illness Date Seen by Provider: May 02, 2018 Time Seen by Provider: 14:34 Initial Comments This 63-year-old gentleman presents to the emergency room via EMS after being found in his home quite ill. 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 Concerned students contacted the pegram who sent a payroll representative out to his home to check on him. The issue answered his door but then went back to his room. When the patient did not come out, the university payroll representative went back to his room and found him on the floor. EMS was then activated. Patient has a significant altered mental status at this time. He does respond to voice but is not answering questions appropriately. He is disoriented to place, month, and age. There are. Bruises over his lower lip and right forehead. He complains of soreness diffusely including his neck. A c-collar was applied during initial assessment. Patient's last known well time was some time on Monday. Patient is wearing multiple fentanyl patches. Patient has history of insulin pump use. He has an insulin port on his right abdomen but no insulin pump is found. Allergies and Home Medications Allergies Coded Allergies: No Known Drug Allergies (Unverified , 07/04/09) Home Medications Aspirin 325 Mg Tablet, 325 MG PO DAILY, (Reported) Atorvastatin Calcium 40 Mg Tablet, 40 MG PO HS, (Reported) Bupropion HCl 150 Mg Tab.er.24h, 150 MG PO DAILY, (Reported) TAKES ALONG WITH 300MG TABLET FOR A TOTAL DAILY DOSE OF 450MG Bupropion Hcl 300 Mg Tab.sr.24h, 300 MG PO DAILY, (Reported) TAKES ALONG WITH 150MG TABLET FOR TOTAL DAILY DOSE OF 450MG Buspirone HCl 10 Mg Tablet, 10 MG PO TID, (Reported) Calcium Carbonate/Vitamin D3 1 Each Tablet, 1 TAB PO HS, (Reported) Cephalexin 500 Mg Capsule, 500 MG PO TID Prescribed by: JAMIE CROCKER on 09/29/16 1441 Clonazepam 1 Mg Tablet, 1 MG PO HS, (Reported) Clonazepam 1 Mg Tablet, 0.5 MG PO DAILY, (Reported) TAKES 1/2 (1MG) TABLET Docusate Sodium 100 Mg Capsule, 100 MG PO BID, (Reported) Fentanyl 1 Ea Patch, 75 MCG TD Q72H, (Reported) Ferrous Sulfate 325 Mg Tablet, 325 MG PO HS, (Reported) Furosemide 20 Mg Tablet, 20 MG PO Q48H, (Reported) Gabapentin 600 Mg Tab, 600 MG PO TID, (Reported) Insulin Lispro 100 Unit/1 Ml Vial, PER PUMP, (Reported) Levothyroxine Sodium 200 Mcg Tablet, 200 MCG PO DAILY, (Reported) Metoprolol Succinate 25 Mg Tab.sr.24h, 12.5 MG PO HS, (Reported) TAKES 1/2 (25MG) TABLET Multivitamin 1 Each Tablet, 1 TAB PO DAILY, (Reported) [place] 3 Polyunsat Fatty Acids 1,000 Mg Cap, 1,000 MG PO QID, (Reported) Ondansetron 4 Mg Tab.rapdis, 4 MG PO Q4H Prescribed by: GRACE COX on 11/20/16 1048 Oxycodone HCl/Acetaminophen 1 Each Tablet, 1 TAB PO Q4H PRN for PAIN, (Reported) Pregabalin 75 Mg Capsule, 75 MG PO BID, (Reported) Sertraline HCl 100 Mg Tablet, 200 MG PO DAILY, (Reported) TAKES 2 (100MG) TABLETS ALONG WITH 50MG TABLET FOR A TOTAL DAILY DOSE OF 250MG Sertraline HCl 50 Mg Tablet, 50 MG PO DAILY, (Reported) TAKES ALONG WITH 2 (100MG) TABLETS FOR A TOTAL DAILY DOSE 250MG Patient Home Medication List Home Medication List Reviewed: Yes Review of Systems Review of Systems Constitutional: see HPI Eyes: No Symptoms Reported Ears, Nose, Mouth, Throat: see HPI Respiratory: no symptoms reported Cardiovascular: no symptoms reported Gastrointestinal: no symptoms reported Genitourinary: no symptoms reported Musculoskeletal: see HPI Skin: see HPI Psychiatric/Neurological: See HPI Endocrine: See HPI Hematologic/Lymphatic: No Symptoms Reported Past Fspvhme-Tusewm-Itksbg Hx Patient Social History Alcohol Use: Denies Use Recreational Drug Use: No Smoking Status: Smoker Current Status UKN Type Used: Pipe Recent Foreign Travel: No Contact w/Someone Who Travel: No Recent Infectious Disease Expo: No Recent Hopitalizations: No Immunizations Up To Date Tetanus Booster (TDap): More than 5yrs PED Vaccines UTD: No Date of Pneumonia Vaccine: Jan 02, 2012 Date of Influenza Vaccine: Jan 13, 2016 Seasonal Allergies Seasonal Allergies: No Past Medical History Surgeries: Yes (RIGHT LOWER LEG AMPUTATION) Amputation (right BKA), Cardiac, CABG, Orthopedic, Vascular Surgery Respiratory: No Currently Using CPAP: No Currently Using BIPAP: No Cardiac: Yes (CABG X4 1997, ME 1997, DVT R THIGH 1997) Coronary Artery Disease, Heart Attack, High Cholesterol, Hypertension, Peripheral Vascular Neurological: Yes Neuropathy Reproductive Disorders: No Sexually Transmitted Disease: No HIV/AIDS: No Genitourinary: Yes (GFR 40-45%) Renal Failure Gastrointestinal: No Musculoskeletal: Yes (RIGHT BELOW KNEE AMP 17) Amputee, Fractures Endocrine: Yes Parathyroid Disease, Diabetes, Insulin dep, Hypothyroidsim HEENT: No Loss of Vision: Denies Hearing Impairment: Denies Cancer: No Psychosocial: Yes Anxiety, Depression Integumentary: No Blood Disorders: Yes (ANEMIA ) Adverse Reaction/Blood Tranf: No Family Medical History Reviewed Nursing Family Hx Cardiovascular disease 19 MOTHER Heart Disease, Cancer, Diabetes Physical Exam Vital Signs Vital Signs - First Documented 05/02/18 14:35 Temp 94.0 Pulse 92 Resp 20 B/P (MAP) 146/77 (100) Pulse Ox 100 O2 Delivery Room Air Capillary Refill : Less Than 3 Seconds Height, Weight, BMI Height: 5'9.00" Weight: 163lbs. 2.0oz. 73.625008tm; 21.5 BMI Method:Stated General Appearance: WD/WN, no apparent distress HEENT: PERRL/EOMI, normal ENT inspection, other (mucous membranes somewhat dry. Evidence of contusion over the right forehead and lower lip) Neck: supple, normal inspection, tender midline Respiratory: lungs clear, normal breath sounds, no respiratory distress, no accessory muscle use Cardiovascular: regular rate, rhythm, no edema, no murmur Gastrointestinal: normal bowel sounds, non tender, soft Extremities: normal inspection, no pedal edema, other (right BKA) Neurologic/Psychiatric: flare man II-XII nml as tested, alert, disoriented x 3, other (generalized weakness. Moves all 4 extremities. Subtle tremor.) Crainal Nerves: normal hearing, normal speech, PERRL Motor/Sensory: no motor deficit (generalized weakness but no focal deficit), no sensory deficit Skin: normal color, warm/dry, ecchymosis Focused Exam Lactate Level 05/02/18 14:40: Lactic Acid Level 2.46*H Lactic Acid Level Laboratory Tests Test 05/02/18 14:40 Lactic Acid Level 2.46 MMOL/L (0.50-2.00) *H Progress/Results/Core Measures Results/Orders Lab Results Laboratory Tests Test 05/02/18 14:40 05/02/18 14:42 05/02/18 14:49 05/02/18 14:54 Range/Units Lactic Acid Level 2.46 *H 0.50-2.00 MMOL/L Thyroid Stimulating Hormone (TSH) 3.41 0.35-4.94 UIU/ML Free Thyroxine 0.96 0.70-1.48 NG/DL Serum Alcohol < 10 <10 MG/DL Glucometer > 600 *H 70-110 MG/DL White Blood Count 13.2 H 4.3-11.0 10^3/uL Red Blood Count 4.03 L 4.35-5.85 10^6/uL Hemoglobin 12.3 L 13.3-17.7 G/DL Hematocrit 36 L 40-54 % Mean Corpuscular Volume 90 80-99 FL Mean Corpuscular Hemoglobin 31 25-34 PG Mean Corpuscular Hemoglobin Concent 34 32-36 G/DL Red Cell Distribution Width 13.7 10.0-14.5 % Platelet Count 189 130-400 10^3/uL Mean Platelet Volume 11.9 H 7.4-10.4 FL Neutrophils (%) (Auto) 88 H 42-75 % Lymphocytes (%) (Auto) 6 L 12-44 % Monocytes (%) (Auto) 6 0-12 % Eosinophils (%) (Auto) 0 0-10 % Basophils (%) (Auto) 0 0-10 % Neutrophils # (Auto) 11.6 H 1.8-7.8 X 10^3 Lymphocytes # (Auto) 0.8 L 1.0-4.0 X 10^3 Monocytes # (Auto) 0.8 0.0-1.0 X 10^3 Eosinophils # (Auto) 0.0 0.0-0.3 10^3/uL Basophils # (Auto) 0.0 0.0-0.1 10^3/uL Neutrophils % (Manual) 80 % Lymphocytes % (Manual) 5 % Monocytes % (Manual) 4 % Eosinophils % (Manual) 0 % Basophils % (Manual) 0 % Band Neutrophils 11 % Blood Morphology Comment NORMAL Prothrombin Time 18.5 H 12.2-14.7 SEC INR Comment 1.5 H 0.8-1.4 Activated Partial Thromboplast Time 30 24-35 SEC D-Dimer 3.34 H 0.00-0.49 UG/ML Sodium Level 132 L 135-145 MMOL/L Potassium Level 5.1 H 3.6-5.0 MMOL/L Chloride Level 89 L 98-107 MMOL/L Carbon Dioxide Level 11 L 21-32 MMOL/L Anion Gap 32 H 5-14 MMOL/L Blood Urea Nitrogen 80 H 7-18 MG/DL Creatinine 2.56 H 0.60-1.30 MG/DL Estimat Glomerular Filtration Rate 25 BUN/Creatinine Ratio 31 Glucose Level 730 *H 70-105 MG/DL Calcium Level 9.5 8.5-10.1 MG/DL Corrected Calcium 9.6 8.5-10.1 MG/DL Total Bilirubin 0.8 0.1-1.0 MG/DL Aspartate Amino Transf (AST/SGOT) 242 H 5-34 U/L Alanine Aminotransferase (ALT/SGPT) 97 H 0-55 U/L Alkaline Phosphatase 95 40-136 U/L Total Creatine Kinase 5634 H 30-200 U/L Troponin I 13.506 *H <0.028 NG/ML Total Protein 7.0 6.4-8.2 GM/DL Albumin 3.9 3.2-4.5 GM/DL Urine Color YELLOW Urine Clarity CLEAR Urine pH 5 5-9 Urine Specific [place] 1.020 1.016-1.022 Urine Protein NEGATIVE NEGATIVE Urine Glucose (UA) 4+ H NEGATIVE Urine Ketones 4+ H NEGATIVE Urine Nitrite NEGATIVE NEGATIVE Urine Bilirubin NEGATIVE NEGATIVE Urine Urobilinogen NORMAL NORMAL MG/DL Urine Leukocyte Esterase NEGATIVE NEGATIVE Urine RBC (Auto) 3+ H NEGATIVE Urine RBC 5-10 H /HPF Urine WBC NONE /HPF Urine Squamous Epithelial Cells RARE /HPF Urine Crystals NONE /LPF Urine Bacteria NONE /HPF Urine Casts NONE /LPF Urine Mucus NEGATIVE /LPF Urine Culture Indicated NO Urine Opiates Screen NEGATIVE NEGATIVE Urine Oxycodone Screen NEGATIVE NEGATIVE Urine Methadone Screen NEGATIVE NEGATIVE Urine Propoxyphene Screen NEGATIVE NEGATIVE Urine Barbiturates Screen NEGATIVE NEGATIVE Ur Tricyclic Antidepressants Screen NEGATIVE NEGATIVE Urine Phencyclidine Screen NEGATIVE NEGATIVE Urine Amphetamines Screen NEGATIVE NEGATIVE Urine Methamphetamines Screen NEGATIVE NEGATIVE Urine Benzodiazepines Screen NEGATIVE NEGATIVE Urine Cocaine Screen NEGATIVE NEGATIVE Urine Cannabinoids Screen NEGATIVE NEGATIVE Test 05/02/18 16:05 05/02/18 17:21 05/02/18 17:29 Range/Units Glucometer > 600 *H 564 *H 70-110 MG/DL Blood Gas Puncture Site RIGHT RADIAL Blood Gas Patient Temperature 95.0 Arterial Blood pH 7.27 *L 7.37-7.43 Arterial Blood Partial Pressure CO2 23 L 35-45 MMHG Arterial Blood Partial Pressure O2 89 79-93 MMHG Arterial Blood HCO3 11 *L 23-27 MMOL/L Arterial Blood Total CO2 11.4 L 21.0-31.0 MMOL/L Arterial Blood Oxygen Saturation 96 94-100 % Arterial Blood Base Excess -15.2 L -2.5-2.5 MMOL/L Luigi Test POSITIVE Blood Gas Ventilator Setting NO Blood Gas Inspired Oxygen ROOM AIR My Orders Orders - JEFF CROCKER MD Cbc With Automated Diff (05/02/18 14:50) Protime With Inr (05/02/18 14:50) Partial Thromboplastin Time (05/02/18 14:50) Comprehensive Metabolic Panel (05/02/18 14:50) Fibrin Degradation Products (05/02/18 14:50) Troponin I (05/02/18 14:50) Ua Culture If Indicated (05/02/18 14:50) Chest 1 View, Ap/Pa Only (05/02/18 14:50) Catheter(Urinary) Insert & Ass 03,15 (05/02/18 14:50) Ekg Tracing (05/02/18 14:50) Nothing By Mouth (05/02/18 Dinner) Accucheck Stat ONCE (05/02/18 14:50) Saline Lock/Iv-Start (05/02/18 14:50) Saline Lock/Iv-Start (05/02/18 14:50) Vital Signs Stroke Patient Q15M (05/02/18 14:50) Ct Head Wo-R/O Stroke (05/02/18 14:50) O2 (05/02/18 14:50) Intake & Output 06,14,22 (05/02/18 14:50) Monitor-Rhythm Ecg Trace Only (05/02/18 14:50) Dysphagia Screening Tool (05/02/18 14:50) Ct Cervical Spine Wo (05/02/18 14:50) Saline Lock/Iv-Start (05/02/18 14:50) Ns Iv 1000 Ml (Sodium Chloride 0.9%) (05/02/18 14:50) Insulin (Regular) Human (Humulin R (Per (05/02/18 15:00) Creatine Kinase (05/02/18 14:50) Free T4 (Free Thyroxine) (05/02/18 14:56) Thyroid Stimulating Hormone (05/02/18 14:56) Manual Differential (05/02/18 14:49) Alcohol (05/02/18 15:33) Drug Screen Stat (Urine) (05/02/18 15:33) Lorazepam Injection (Ativan Injection) (05/02/18 15:45) Lorazepam Injection (Ativan Injection) (05/02/18 15:35) Ns Iv 1000 Ml (Sodium Chloride 0.9%) (05/02/18 16:08) Insulin (Regular) Human (Humulin R (Per (05/02/18 16:15) Accucheck Stat ONCE (05/02/18 16:09) Piperacillin Sodium/Tazobactam (Zosyn Vi (05/02/18 17:15) Blood Culture (05/02/18 17:15) Lactic Acid Analyzer (05/02/18 17:15) Arterial Blood Gas (05/02/18 17:15) Accucheck Stat ONCE (05/02/18 17:15) Saline Lock/Iv-Start (05/02/18 17:31) Ns Iv 1000 Ml (Sodium Chloride 0.9%) (05/02/18 17:31) Insulin (Regular) Human (Humulin R (Per (05/02/18 17:45) Lactated Ringers (Lr 1000 Ml Iv Solution (05/02/18 20:17) Medications Given in ED Current Medications Medications Dose Ordered Sig/Isaias Route Start Time Stop Time Status Last Admin Dose Admin Insulin Human Regular 5 unit ONCE ONCE IV 05/02/18 17:45 05/02/18 17:46 DC 05/02/18 17:53 5 UNIT Insulin Human Regular 10 unit ONCE ONCE IV 05/02/18 15:00 05/02/18 15:01 DC 05/02/18 14:58 10 UNIT Insulin Human Regular 10 unit ONCE ONCE IV 05/02/18 16:15 05/02/18 16:16 DC 05/02/18 16:17 10 UNIT Lorazepam 0.5 mg ONCE ONCE IVP 05/02/18 15:45 05/02/18 15:46 DC 05/02/18 15:44 0.5 MG Piperacillin Sod/ Tazobactam Sod 4.5 gm/Sodium Chloride 100 ml @ 200 mls/hr ONCE ONCE IV 05/02/18 17:15 05/02/18 17:44 DC 05/02/18 17:53 200 MLS/HR Sodium Chloride 1,000 ml @ 0 mls/hr Q0M ONCE IV 05/02/18 14:50 05/02/18 14:54 DC 05/02/18 14:58 1,000 MLS/HR Sodium Chloride 1,000 ml @ 0 mls/hr Q0M ONCE IV 05/02/18 16:08 05/02/18 16:10 DC 05/02/18 16:05 1,000 MLS/HR Sodium Chloride 1,000 ml @ 0 mls/hr Q0M ONCE IV 05/02/18 17:31 05/02/18 17:33 DC 05/02/18 17:53 1,000 MLS/HR Vital Signs/I&O 05/02/18 05/02/18 05/02/18 14:35 17:55 18:29 Temp 94.0 95.6 Pulse 92 96 95 Resp 20 23 19 B/P (MAP) 146/77 (100) 121/74 (90) 128/75 (92) Pulse Ox 100 100 100 O2 Delivery Room Air Room Air Room Air Blood Pressure Mean: 100 FSBG Bedside Testing Finger Stick Blood Glucose: 600 Blood Glucose Action Taken: PHYSCIAN NOTIFIED Progress Progress Note #1: Time: 16:15 Progress Note Stroke activation was paged after patient's initial assessment. CT of the head revealed no hemorrhage. There was questionable increased density that could be suggestive of a in acute or subacute infarct. However, patient also had significant motion during attempts to obtain CT and this finding could be related to artifact. Patient was given Ativan 0.5 mg to help manage his agitation so as to facilitate safe care. He was given a 1 L bolus of warmed normal saline in addition to the 700 mL received via EMS. Warm fluids were used as patient's initial temperature was 94. He was covered in warm blankets as well. He was found to be in diabetic ketoacidosis. A repeat blood sugar was too high to read. He was given another 10 units of insulin in addition to the 10 units he received upon arrival. We will continue monitoring blood sugar closely and treating hyperglycemia as needed. Troponin was elevated. Dr. Mendoza was consulted and recommended treating as a possible and STEMI with aspirin, heparin drip, and either Plavix or Brilinta. Patient had 3 fentanyl patches on when examined. Two of the patches were removed. One patch was left in place so as to avoid withdraw. An accurate NIH could not be obtained due to patient's agitation and inability to cooperate. TPA was not considered as patient's last known well time was several days ago and no focal deficit was identified. Progress Note #2: Time: 17:36 Progress Note Transfer to a critical care facility was sought due to ICU diversion at [facility]. Transfer was delayed to some degree while family and this provider attempted to sort out where the patient receives his cardiology care. It was discovered that he sees Dr. 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 He had not been seen at [place] since 2006. Family consents to transfer to [facility]. I discussed the case with Dr. Rodriguez (ticket printer) and Dr. Stephens (ER physician) at [facility] who accepted transfer. Due to the renal failure and potential trauma, Dr. Stephens requested no heparin or antiplatelet therapy be given until patient is assessed further at their facility. Patient has now received a total of 2700 mL in normal saline boluses. Blood sugar has improved to 564. An additional 5 units of IV insulin will be administered along with a fourth liter of IV normal saline. Patient is becoming more alert and answering questions more promptly. He is also active and sitting at the side of the bed. There was a delay in receiving the report of the CT cervical spine. Once report was received, c- collar was removed. Patient was then sitting up at bedside supervised by his son. There was question of possible pneumonitis on the chest x-ray. Since there is also a leukocytosis, we will obtain blood cultures and give a dose of Zosyn prior to transfer. ABG will also be obtained. Imaging studies are being clouded to [facility]. Progress Note #3: Time: 18:08 Progress Note EMS now here for transfer. Initial ECG Impression Date: May 02, 2018 Initial ECG Impression Time: 14:40 Initial ECG Rate: 90 Initial ECG Rhythm: Normal Sinus Comment Sinus rhythm with no ST elevation or depression. No axis deviation. IVCD present. Diagnostic Imaging Diagonstic Imaging: Xray Plain Films/CT/US/NM/MRI: chest Comments Chest x-ray viewed by me and report reviewed. See report below: NAME: TADEO SUE I [facility] REC#: [id number] PT STATUS: REG ER : 1955 PHYSICIAN: JEFF CROCKER MD ADMIT DATE: 05/02/18/ER Signed Date of Exam:05/02/18 CHEST 1 VIEW, AP/PA ONLY EXAM: CHEST 1 VIEW, AP/PA ONLY. INDICATION: Altered mental status. Hyperglycemia. COMPARISON: Chest radiograph 05/07/2012. FINDINGS: Normal heart size and central pulmonary vascularity. New airspace opacities in the right lower lobe and left upper lobe. No pleural effusion or pneumothorax. Sternotomy. Mediastinal clips. No acute osseous findings. IMPRESSION: New airspace opacities in the right lower lobe greater than left upper lobe suspicious for pneumonitis. Recommend follow-up to resolution. Dictated by: Dictated on workstation # [id number] Dict: 05/02/18 1550 Trans: 05/02/18 1733 [id number] Interpreted by: CHICO BOSTON MD Electronically signed by: CHICO BOSTON MD 05/02/18 1733 Diagonstic Imaging: CT Plain Films/CT/US/NM/MRI: head Comments CT head viewed by me and report reviewed. See report below: NAME: TADEO SUE I [facility] REC#: [id number] PT STATUS: REG ER : 1955 PHYSICIAN: JEFF CROCKER MD ADMIT DATE: 05/02/18/ER Signed Date of Exam: 05/02/18 CT HEAD WO-R/O STROKE CLINICAL INDICATION: Patient was found in his home laying on the floor. Patient with change in level of consciousness. EXAM: Head CT without IV contrast. COMPARISON: None. FINDINGS: There is motion artifact limiting evaluation of the anatomical structures. There is a small area of amorphous low attenuation involving the posterior left temporal lobe region seen on the axial sequence 4, image 18. Unknown if this represents an area of true parenchymal low density versus volume averaging from sulci. Otherwise, there is no other concern for acute cerebral infarct, intracranial hemorrhage, or gross mass effect. The brain parenchymal volume appears appropriate for patient's age. There is normal la-white matter distinction. There is no significant midline shift or herniation. There is no evidence of hydrocephalus. The basal cisterns are unremarkable. The skull, extracranial soft tissue, and orbits are unremarkable. The paranasal sinuses are unremarkable. Temporal bones show no significant abnormality. IMPRESSION: 1: There is a small area of low attenuation involving the posterior left temporal lobe. Unknown if this represents a true area of brain parenchymal low density versus volume averaging of sulci. MRI of the brain would better evaluate. An infarct or other parenchymal abnormality in this region cannot be completely excluded. 2: Otherwise, age-related brain parenchymal changes. Results of this report were discussed with Jamie Crocker for Dr. Jeff Crocker via the telephone on 05/02/2018 at 1545 hours. Dictated by: Dictated on workstation # [id number] Dict: 05/02/18 1537 Trans: 05/02/18 1709 Interpreted by: LEAH CAMP MD Electronically signed by: LEAH CAMP MD 05/02/18 1707 Diagonstic Imaging: CT Plain Films/CT/US/NM/MRI: c-spine Comments CT C-spine viewed by me and report reviewed. See report below: NAME: TADEO SUE II [facility] REC#: [id number] PT STATUS: REG ER : 1955 PHYSICIAN: JEFF CROCKER MD ADMIT DATE: 05/02/18/ER Signed Date of Exam: 05/02/18 CT CERVICAL SPINE WO PROCEDURE: CT cervical spine without contrast. TECHNIQUE: Multiple contiguous axial images were obtained through the cervical spine without the use of intravenous contrast. Sagittal and coronal reformations were then performed. INDICATION: Fall. Altered mental status. Found down. COMPARISON: None. FINDINGS: Examination limited by motion artifact despite multiple attempts at scanning. Normal alignment. Vertebral body heights appear preserved. No fractures are identified. Moderate degenerative endplate changes are more advanced at C5-C7. Posterior disc osteophyte complex at C5-C6 results in at least moderate spinal canal narrowing. Moderate atherosclerotic calcifications including the carotid bifurcations. The visualized paravertebral soft tissues are otherwise unremarkable. IMPRESSION: 1. Examination limited by motion artifact despite multiple attempts of scanning. 2. No acute CT findings in the cervical spine are identified. 3. Spondylotic changes result in at least moderate spinal canal narrowing at C5-C6. This could be further evaluated with MRI or CT myelogram if clinically warranted. Dictated by: Dictated on workstation # [id number] Dict: 05/02/18 1531 Trans: 05/02/18 1735 Interpreted by: CHICO BOSTON MD Electronically signed by: CHICO BOSTON MD 05/02/18 1735 Departure Impression Primary Impression: Diabetic ketoacidosis Qualified Codes: E10.10 - Type 1 diabetes mellitus with ketoacidosis without coma Additional Impressions: Rhabdomyolysis Qualified Codes: T79.6XXA - Traumatic ischemia of muscle, initial encounter Elevated troponin Pneumonitis Abnormal CT of brain Facial contusion Qualified Codes: S00.83XA - Contusion of other part of head, initial encounter Altered mental status Qualified Codes: R41.82 - Altered mental status, unspecified Acute kidney injury Disposition: HOME, SELF-CARE Condition: Improved Transfer Time Spoke to Accepting Phy: 17:05 Transfer Progress Notes Patient accepted by Dr. Stephens in the ER at [facility]. Dr. Rodriguez requested patient be routed through the ER due to suggestion of fall and trauma based on history. Transfer Time: 18:08 Transfer Facility: [facility] Departure-Patient Inst. Referrals: SKYLAR GELLER MD (PCP) Primary Care Physician Copy Copies To 1: SKYLAR GELLER MD, JOSHUA T MD May 02, 2018 17:31
--- NOTE | 2018-05-02 17:38 | Diagnostic Imaging Report ---
PROCEDURE: CT cervical spine without contrast. TECHNIQUE: Multiple contiguous axial images were obtained through the cervical spine without the use of intravenous contrast. Sagittal and coronal reformations were then performed. INDICATION: Fall. Altered mental status. Found down. COMPARISON: None. FINDINGS: Examination limited by motion artifact despite multiple attempts at scanning. Normal alignment. Vertebral body heights appear preserved. No fractures are identified. Moderate degenerative endplate changes are more advanced at C5-C7. Posterior disc osteophyte complex at C5-C6 results in at least moderate spinal canal narrowing. Moderate atherosclerotic calcifications including the carotid bifurcations. The visualized paravertebral soft tissues are otherwise unremarkable. IMPRESSION: 1. Examination limited by motion artifact despite multiple attempts of scanning. 2. No acute CT findings in the cervical spine are identified. 3. Spondylotic changes result in at least moderate spinal canal narrowing at C5-C6. This could be further evaluated with MRI or CT myelogram if clinically warranted. Dictated by: Dictated on workstation # [id number]
[2018-05-02] MEDS ORDERED: inSUlin (REGULAR) HUMAN 1 UNIT/0.01 ML (CHARGE PER UNIT) SC ONE (17:45)
[2018-05-02 17:47] LABS: ABG BASE EXCESS -15.2 MMOL/L (-2.5-2.5); ABG OXYGEN SATURATION 96 % (94-100); ABG PCO2 23 MMHG (35-45); ABG PO2 89 MMHG (79-93); ABG TCO2 11.4 MMOL/L (21.0-31.0)
[2018-05-02 17:49] LABS: ABG PH 7.27 (7.37-7.43); ALLENS TEST POSITIVE; INSPIRED O2 ROOM AIR; VENTILATOR NO
[2018-05-02 17:55] VITALS: BP 121/74
[2018-05-02 18:29] VITALS: BP 128/75
[2018-05-02] MEDS ORDERED: LACTATED RINGERS 1,000 ML IV ONE (20:17)
== END 2018-05-02 18:29 | disposition home or self-care (01) ==
LOC: EDUNIT# 14:33 → ER 14:34
DX: S00.83XA Contusion of other part of head, initial encounter (principal); N17.9 Acute kidney failure, unspecified; E11.10 Type 2 diabetes mellitus with ketoacidosis without coma; M62.82 Rhabdomyolysis; R79.89 Other specified abnormal findings of blood chemistry; J69.0 Pneumonitis due to inhalation of food and vomit; R41.82 Altered mental status, unspecified; R93.0 Abnormal findings on diagnostic imaging of skull and head, not elsewhere classified; I25.10 Atherosclerotic heart disease of native coronary artery without angina pectoris; I25.2 Old myocardial infarction; E78.00 Pure hypercholesterolemia, unspecified; I10 Essential (primary) hypertension; E11.51 Type 2 diabetes mellitus with diabetic peripheral angiopathy without gangrene; I73.9 Peripheral vascular disease, unspecified; E11.40 Type 2 diabetes mellitus with diabetic neuropathy, unspecified; E03.9 Hypothyroidism, unspecified; F41.9 Anxiety disorder, unspecified; F32.9 Major depressive disorder, single episode, unspecified; D64.9 Anemia, unspecified; F17.290 Nicotine dependence, other tobacco product, uncomplicated; Z79.82 Long term (current) use of aspirin; Z86.718 Personal history of other venous thrombosis and embolism; Z82.49 Family history of ischemic heart disease and other diseases of the circulatory system; Z89.511 Acquired absence of right leg below knee; Z95.1 Presence of aortocoronary bypass graft; Z79.4 Long term (current) use of insulin; X58.XXXA Exposure to other specified factors, initial encounter
CPT/HCPCS: 36415; 51702; 70450; 71045; 72125; 80053; 80306; 80320; 81000; 82550; 82805; 82962; 83605; 84439; 84443; 84484; 85007; 85027; 85379; 85610; 85730; 87040; 93005; 93041; 99291

== ENCOUNTER 2018-05-13 01:50 | Emergency (ER) | payer MEDICARE ==
[~2018-05-13] VITALS: Ht 175.3 cm; Wt 74.0 kg
--- NOTE | 2018-05-13 02:04 | ED GU-Male ---
General Chief Complaint: -Male Stated Complaint: URINE RETENTION 24 HRS Source: patient, EMS Exam Limitations: no limitations History of Present Illness Date Seen by Provider: May 13, 2018 Time Seen by Provider: 01:56 Initial Comments Here by EMS from [facility] where he was to have Liu catheter changed today. They were unable to get the catheter back and despite both times. This into the ER for catheter placement. Denies other concerns. Timing/Duration: yesterday Severity/Quality: moderate Location: suprapubic Radiation: none Associated Symptoms: No abdominal pain, No fever/chills Allergies and Home Medications Allergies Coded Allergies: No Known Drug Allergies (Unverified , 07/04/09) Home Medications Aspirin 325 Mg Tablet, 325 MG PO DAILY, (Reported) Atorvastatin Calcium 40 Mg Tablet, 40 MG PO HS, (Reported) Bupropion HCl 150 Mg Tab.er.24h, 150 MG PO DAILY, (Reported) TAKES ALONG WITH 300MG TABLET FOR A TOTAL DAILY DOSE OF 450MG Bupropion Hcl 300 Mg Tab.sr.24h, 300 MG PO DAILY, (Reported) TAKES ALONG WITH 150MG TABLET FOR TOTAL DAILY DOSE OF 450MG Buspirone HCl 10 Mg Tablet, 10 MG PO TID, (Reported) Calcium Carbonate/Vitamin D3 1 Each Tablet, 1 TAB PO HS, (Reported) Cephalexin 500 Mg Capsule, 500 MG PO TID Prescribed by: JAMIE VELAZQUEZ on 09/29/16 1441 Clonazepam 1 Mg Tablet, 1 MG PO HS, (Reported) Clonazepam 1 Mg Tablet, 0.5 MG PO DAILY, (Reported) TAKES 1/2 (1MG) TABLET Docusate Sodium 100 Mg Capsule, 100 MG PO BID, (Reported) Fentanyl 1 Ea Patch, 75 MCG TD Q72H, (Reported) Ferrous Sulfate 325 Mg Tablet, 325 MG PO HS, (Reported) Furosemide 20 Mg Tablet, 20 MG PO Q48H, (Reported) Gabapentin 600 Mg Tab, 600 MG PO TID, (Reported) Insulin Lispro 100 Unit/1 Ml Vial, PER PUMP, (Reported) Levothyroxine Sodium 200 Mcg Tablet, 200 MCG PO DAILY, (Reported) Metoprolol Succinate 25 Mg Tab.sr.24h, 12.5 MG PO HS, (Reported) TAKES 1/2 (25MG) TABLET Multivitamin 1 Each Tablet, 1 TAB PO DAILY, (Reported) [place] 3 Polyunsat Fatty Acids 1,000 Mg Cap, 1,000 MG PO QID, (Reported) Ondansetron 4 Mg Tab.rapdis, 4 MG PO Q4H Prescribed by: GRACE COX on 11/20/16 1048 Oxycodone HCl/Acetaminophen 1 Each Tablet, 1 TAB PO Q4H PRN for PAIN, (Reported) Pregabalin 75 Mg Capsule, 75 MG PO BID, (Reported) Sertraline HCl 100 Mg Tablet, 200 MG PO DAILY, (Reported) TAKES 2 (100MG) TABLETS ALONG WITH 50MG TABLET FOR A TOTAL DAILY DOSE OF 250MG Sertraline HCl 50 Mg Tablet, 50 MG PO DAILY, (Reported) TAKES ALONG WITH 2 (100MG) TABLETS FOR A TOTAL DAILY DOSE 250MG Patient Home Medication List Home Medication List Reviewed: Yes Review of Systems Review of Systems Constitutional: see HPI; No chills, No fever Respiratory: no symptoms reported Cardiovascular: no symptoms reported Genitourinary: see HPI; denies pain; other (retention) Past Ipndkyk-Xsuacq-Wkmvdj Hx Past Med/Social Hx: Reviewed Nursing Past Med/Soc Hx Patient Social History Type Used: Pipe Recent Foreign Travel: No Contact w/Someone Who Travel: No Recent Hopitalizations: No Immunizations Up To Date Tetanus Booster (TDap): More than 5yrs PED Vaccines UTD: No Date of Pneumonia Vaccine: Jan 02, 2012 Date of Influenza Vaccine: Jan 13, 2016 Seasonal Allergies Seasonal Allergies: No Past Medical History Surgeries: Yes (RIGHT LOWER LEG AMPUTATION) Amputation, Cardiac, CABG, Orthopedic, Vascular Surgery Respiratory: No Currently Using CPAP: No Currently Using BIPAP: No Cardiac: Yes (CABG X4 1997, NE 1997, DVT R THIGH 1997) Coronary Artery Disease, Heart Attack, High Cholesterol, Hypertension, Peripheral Vascular Neurological: Yes Neuropathy Reproductive Disorders: No Sexually Transmitted Disease: No HIV/AIDS: No Genitourinary: Yes (GFR 40-45%) Renal Failure Gastrointestinal: No Musculoskeletal: Yes (RIGHT BELOW KNEE AMP 17) Amputee, Fractures Endocrine: Yes Parathyroid Disease, Diabetes, Insulin dep, Hypothyroidsim HEENT: No Loss of Vision: Denies Hearing Impairment: Denies Cancer: No Psychosocial: Yes Anxiety, Depression Integumentary: No Blood Disorders: Yes (ANEMIA ) Adverse Reaction/Blood Tranf: No Family Medical History Reviewed Nursing Family Hx Cardiovascular disease 19 MOTHER Heart Disease, Cancer, Diabetes Physical Exam Vital Signs Capillary Refill : Height, Weight, BMI Height: 5'9.00" Weight: 163lbs. 2.0oz. [id number]; 21.5 BMI Method:Stated General Appearance: WD/WN, no apparent distress Cardiovascular: regular rate, rhythm, no murmur Respiratory: lungs clear, normal breath sounds Neurologic/Psychiatric: alert, normal mood/affect Progress/Results/Core Measures Suspected Sepsis SIRS Temperature: Pulse: Respiratory Rate: Blood Pressure / Mean: Results/Orders Vital Signs/I&O Capillary Refill : Progress Note : Progress Note Seen and evaluated. Liu catheter placed by nursing without difficulty. Several 100 mL of yellow urine obtained. Discharge back to [facility] with return precautions. Patient verbalize understanding and agreement with plan. Departure Impression Primary Impression: Encounter for Liu catheter replacement Disposition: 01 HOME, SELF-CARE Condition: Improved Departure-Patient Inst. Decision time for Depature: 02:04 Referrals: SKYLAR GELLER MD (PCP/Family) Primary Care Physician Patient Instructions: How to Care for Your Liu Catheter, Male Add. Discharge Instructions: All discharge instructions reviewed with patient and/or family. Voiced understanding. Continue Liu catheter care as previously ordered. Return for other concerns as needed. OWEN PAYNE MD May 13, 2018 02:04
[2018-05-13 02:07] VITALS: BP 99/76
== END 2018-05-13 02:06 | disposition home or self-care (01) ==
LOC: EDUNIT# 01:50 → ER 01:52
DX: I25.10 Atherosclerotic heart disease of native coronary artery without angina pectoris (principal); I25.2 Old myocardial infarction; E78.00 Pure hypercholesterolemia, unspecified; I10 Essential (primary) hypertension; I73.9 Peripheral vascular disease, unspecified; E11.9 Type 2 diabetes mellitus without complications; E03.9 Hypothyroidism, unspecified; E11.40 Type 2 diabetes mellitus with diabetic neuropathy, unspecified; F41.9 Anxiety disorder, unspecified; F32.9 Major depressive disorder, single episode, unspecified; D64.9 Anemia, unspecified; Z86.711 Personal history of pulmonary embolism; Z46.6 Encounter for fitting and adjustment of urinary device; Z82.49 Family history of ischemic heart disease and other diseases of the circulatory system; Z79.82 Long term (current) use of aspirin; Z79.4 Long term (current) use of insulin; Z89.511 Acquired absence of right leg below knee; Z95.1 Presence of aortocoronary bypass graft; Z98.890 Other specified postprocedural states
CPT/HCPCS: 51702

== ENCOUNTER 2018-05-25 22:42 | Observation (INO) | payer MEDICARE ==
[~2018-05-25] VITALS: Ht 177.8 cm; Wt 76.9 kg
--- OUTSIDE RECORDS SUMMARY | 2018-05-25 22:47 | XMS REPORT | Clinical Summary ---
Author Author [facility] Organization [facility] Address Unknown Phone Unavailable Care Team Providers Care Top Loader Name Role Phone Suzanna Velez MD Unavailable Merrick Resendez DO Unavailable Humza Kapoor MD PCP Shireen Ortiz DO Unavailable Fabrizio Simmons MD Unavailable Source Comments Some departments are not documenting in the electronic medical record. If you do not see the information that you expected, contact Release of Information in the Health Information Management department at [phone] for further assistance in locating additional records.[facility] Allergies No Known Allergies Medications End Date [...] day. Max Daily Amount: 1 Patch Active ARIPiprazole (ABILIFY) 10 Take one 90 [...] by 8 (generalized anxiety mouth daily. disorder) 05/24/2018 Discontinued clonazePAM (KLONOPIN) 1 Take 1.5 60 tablet 0 mg tablet tablets by 8 mouth daily. 1mg HS and 0.25mg AM Active Problems Problem Noted Date Bipolar 2 disorder, major depressive episode 06/30/2017 Monoclonal gammopathy 04/27/2017 Overview: Overview: Followed by [facility] Overview: Followed by [facility] Overview: Overview: Followed by [facility] Recurrent major depressive disorder, in full remission [...] Encounters Care Team Description Date Type Specialty Konstantin Rivas MD Other 05/25/2018 Telephone Psychiatry Konstantin Rivas MD MARGIE (generalized anxiety disorder) 05/24/2018 Office Visit Psychiatry from Last 3 Months Immunizations Name [...] Vital Signs Time Taken Vital Sign Reading 05/24/2018 2:28 PM CLIPPING MARKER Blood Pressure 128/86 05/24/2018 2:28 PM CLIPPING MARKER Pulse 89 - Temperature - 08/23/2017 1:19 PM CDT Respiratory Rate 16 - Oxygen Saturation - - Inhaled Oxygen - Concentration 05/24/2018 2:28 PM CLIPPING MARKER Weight 71.7 kg (158 lb) 01/18/2018 1:17 PM CDT Height 177.8 cm (5' 10") 05/24/2018 2:28 PM CLIPPING MARKER Body Mass Index 22.67 Plan of Treatment Health Maintenance Due Date [...] MEDICARE xxxxxxxxxx Medicare PART A AND B [facility] AARP xxxxxxxxxxx PPO Advance Directives Patient has advance care planning documents on file. For more information, please contact: [facility] [address] [place] [address]
--- OUTSIDE RECORDS SUMMARY | 2018-05-25 22:47 | XMS REPORT | Encounter Summary ---
Author Author [facility] Organization [facility] Address Unknown Phone Unavailable Care Team Providers Care Cumulative Effects Analyst Name Role Phone Suzanna Velez MD Unavailable Merrick Resendez DO Unavailable Humza Kapoor MD PCP Shireen Ortiz DO Unavailable Fabrizio Simmons MD Unavailable Reason for Visit * Reason Comments Other Encounter Details Care Team Description Date Type Department Konstantin Rivas MD [address] [place] [address] Other 05/25/2018 Telephone [facility] - Psychiatry [facility] Level [address] [place] [address] Social History Date Tobacco Use [...] on fileas of this encounter Visit Diagnoses Not on filein this encounter
--- OUTSIDE RECORDS SUMMARY | 2018-05-25 22:47 | XMS REPORT | Encounter Summary ---
Author Author [facility] Organization [facility] Address Unknown Phone Unavailable Care Team Providers Care Semiconductor Equipment Technician Name Role Phone Suzanna Velez MD Unavailable Merrick Resendez DO Unavailable Humza Kapoor MD PCP Shireen Ortiz DO Unavailable Fabrizio Simmons MD Unavailable Reason for Visit * Reason Comments Depression Encounter Details Care Team Description Date Type Department Konstantin Rivas MD [address] [place] [address] MARGIE (generalized anxiety disorder) 05/24/2018 Office Visit [facility] - Psychiatry [facility] Level [address] [place] [address] Social History Date Tobacco Use [...] travel history available. as of this encounter Last Filed Vital Signs Time Taken Vital Sign Reading 05/24/2018 2:28 PM TICK ERADICATOR Blood Pressure 128/86 05/24/2018 2:28 PM TICK ERADICATOR Pulse 89 - Temperature - - Respiratory Rate - - Oxygen Saturation - - Inhaled Oxygen - Concentration 05/24/2018 2:28 PM TICK ERADICATOR Weight 71.7 kg (158 lb) - Height - 05/24/2018 2:28 PM TICK ERADICATOR Body Mass Index 22.67 in this encounter Progress Notes * Marcela Adams MD - 05/24/2018 1:45 PM TICK ERADICATOR 62 y.o. male with PMH MDD, dysthymia, MARGIE seen with Dr. Rivas. Today he reports dysphoria.clonazepam being tapered off, abilify at 10mg qhs. He was in the hospital recently for diabetes. Since then he has not been on abilify, clonazepam and buspirone and zoloft. He is still on lyrica and wellbutrin. Diagnosis Bipolar type 2. MDD MARGIE Plan: abilify started at 5mg qhs for bipolar disorder. Buspirone 15 tid restarted. Mood stabilizer, abilify 10mg qhs. His mood is stable. RTC 4 months. ERADICATOR * Konstantin Rivas MD - 05/24/2018 1:45 PM TICK ERADICATOR Subjective: Patient presents for follow up. Patient reports that he was doing well, but around may 04 that he may have experienced a "severe diabetic ketoacidosis". He states he has missed a few classes, which he has no memory of and was taken to [facility], intubated and hospitalized in the ICU for a week, then sent to medical floor for approximately 5 days. Patient currently in [facility] for rehab. Patient was not continued on his zoloft, klonopin, abilify, or buspar at this time. Reports depressed mood and worsening anxiety. Reports sleeping 4 hours each night, denies decreased need for sleep. Denies impulsivity , elevated or expansive mood, or increase in goal directed activity. Patient denies SI, HI, or AVH. 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 Currently in rehab, may look into assisted living joint terminal attack controller Review of Systems Cardiovascular: Negative for chest pain. Gastrointestinal: Negative for abdominal pain, nausea and vomiting. Psychiatric/Behavioral: Negative for hallucinations and suicidal ideas. Objective: ARIPiprazole (ABILIFY) 10 mg tablet Take one tablet by mouth daily. ASCORBATE CALCIUM (VITAMIN C PO) Take by mouth. aspirin EC 81 mg tablet Take 81 mg by mouth daily. atorvastatin (LIPITOR) 80 mg tablet 80 mg. buPROPion XL (WELLBUTRIN XL) 150 mg tablet Take one tablet by mouth every morning. Do not crush or chew. buPROPion XL (WELLBUTRIN XL) 300 mg tablet Take one tablet by mouth every morning. busPIRone (BUSPAR) 15 mg tablet Take one tablet by mouth three times daily. clonazePAM (KLONOPIN) 1 mg tablet Take 1.5 tablets by mouth daily. 1mg HS and 0.25mg AM docusate (COLACE) 100 mg capsule Take 100 mg by mouth daily. fentaNYL (DURAGESIC) 100 mcg/hr patch Apply 1 Patch to skin as directed every third day. Max Daily Amount: 1 Patch ferrous sulfate 325 mg (65 mg iron) tablet Take 325 mg by mouth daily. fish oil /omega-3 fatty acids (SEA-OMEGA) 340/1000 mg capsule Take 1 Cap by mouth daily. furosemide (LASIX) 40 mg tablet Take 40 mg by mouth every 48 hours. HYDROcodone/acetaminophen(+) (LORTAB, NORCO) 10/325 mg tablet Take 1 Tab by mouth every 6 hours as needed insulin aspart (NOVOLOG) 100 unit/mL injection Inject 30 Units into area(s) as directed once. Indications: Uses 30 units daily with insulin pump insulin lispro(+) (HUMALOG) 100 unit/mL injection Inject 30 units maximum daily via pump. ICD-10: E10.8. insulin pump -ASPART- Patients Own by [employer] Pump route. levothyroxine (SYNTHROID) 200 mcg tablet Take 200 mcg by mouth daily. metoprolol XL (TOPROL XL) 25 mg tablet Take 12.5 mg by mouth daily. nitroglycerin (NITROSTAT) 0.[address] 0.3 mg under tongue every 5 minutes as needed. pregabalin (LYRICA) 100 mg capsule TAKE ONE CAPSULE BY MOUTH EVERY 12 HOURS PV W-O NADIA/FERROUS FUMARATE/FA (M-VIT PO) Take by mouth. sertraline (ZOLOFT) 100 mg tablet Take two tablets by mouth daily. Vitals: 05/24/18 1428 BP: 128/86 Pulse: 89 Weight: 71.7 kg (158 lb) Body mass index is 22.67 kg/m. Physical Exam Psychiatric: General/Constitutional: appears stated age, dressed in own clothes, in wheelchair, able to ambulate slowly short distances Eye Contact: fair Behavior: calm, cooperative Speech: regular rhythm and rate, normal tone and volume Mood: "depressed" Affect: euthymic, congruent to stated mood Thought Process: linear, goal oriented Thought Content: denies SI or HI Perception: denies AVH Associations: intact Insight: Fair Judgment: Fair Gait: in wheelchair, able to ambulate slowly Metabolic monitoring: Metabolic monitoring: Body mass index is 22.67 kg/m. Wt Readings from Last 3 Encounters: 05/24/18 71.7 kg (158 lb) 01/18/18 74.8 kg (165 lb) 09/21/17 68 kg (150 lb) BP Readings from Last 3 Encounters: 05/24/18 128/86 01/18/18 (!) 162/117 09/21/17 146/68 No Data Recorded Lab Results Component Value Date CHOL 135 08/23/2017 TRIG 82 08/23/2017 HDL 56 08/23/2017 LDL 61 08/23/2017 VLDL 16 08/23/2017 NONHDLCHOL 79 08/23/2017 Hemoglobin A1C Date Value Ref Range Status 07/13/2017 6.9 (H) 4.0 - 6.0 % Final Comment: The ADA recommends that most patients with type 1 and type 2 diabetes maintain an A1c level <7%. Assessment and Plan: - Bipolar Disorder Type 2, Most recent episode depressed - Generalized Anxiety Disorder Mario Carrizales II is a 62 y.o. who presents for follow up. Reports worsening anxiety and depression since being off medication due to recent hospitalization. PLAN: - Resume Abilify 5mg Qday, previously at 10mg, patient unsure of any benefit at 10mg - Continue: - Wellbutrin XL 450mg Qday for depression - Buspar 15mg TID for anxiety - Lyrica 100mg BID - Cr was 1.46 with GFR of 59. - Sertraline 200mg Qday for mood - Discontinue Clonazepam, patient has been off for the last three weeks, previously managed by PCP -Filled out [facility] order sheet for patient with recommended prescriptions - Denies SI, HI, AH or VH. Safety plan discussed. Patient agrees to call 911 or the suicide prevention hotline, come to the ER or call the doctor of these symptoms occur. Contracts for safety. RTC: 1 month Seen and discussed with Dr. Adams. The proposed treatment plan was discussed with the patient and who was provided the opportunity to ask questions and make suggestions regarding alternative treatment. ERADICATOR in this encounter Plan of Treatment Not on fileas of this encounter Visit Diagnoses Diagnosis MARGIE (generalized anxiety disorder) Generalized anxiety disorder in this encounter
[2018-05-25] MEDS ORDERED: NS IV 500 ML 500 ML IV SCH (23:02)
[2018-05-25] MEDS ORDERED: fentaNYL INJECTION 100 MCG/2 ML AMP IVP ONE (23:15)
--- NOTE | 2018-05-25 23:16 | ED General ---
General Chief Complaint: General Problems/Pain Stated Complaint: LOW HEMOGLOBIN Nursing Triage Note: PT STATES HE IS DOING REHAB AT [facility] FOLLOWING HIS DISCHARGE FROM THE [facility] D/T DIABETIC KETOACIDOSIS. PT REPORTS THAT TODAY HE BEGAN TO DEVELOPE DIZZYNESS AND LIGHTHEADNESS, PT DENIES LOC OR FALL., STATES HE HAS HAD LOW BLOOD PRESSURE ALL DAY Nursing Sepsis Screen: No Definite Risk Source of Information: Patient, EMS Exam Limitations: No Limitations History of Present Illness Date Seen by Provider: May 25, 2018 Time Seen by Provider: 22:58 Initial Comments Patient presents to ER from [facility] by EMS with chief complaint that he has been feeling dizzy since this morning feeling lightheaded disoriented. He says that they checked his blood pressure and it was Low this evening so his primary care doctor was contacted and and they noted on some recent labs he had a low hemoglobin of 7. They asked him to come out to the ER to be evaluated and managed. Patient has not noticed any bleeding, black tarry stools. He denies having a history of anemia. Never had a blood transfusion. He did spend a week at [facility] for diabetic ketoacidosis and was sent to the [facility] for physical rehabilitation and that's why he is there now. Is fairly good historian. Not having any chest pain or abdominal pain. He denies nausea vomiting. He doesn't have any dizziness when he sitting down or lying down. 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 He has some pain in his right foot secondary to his peripheral neuropathy. He used to be on fentanyl patches prior to being sent to the hospital. Now he just uses Tylenol with his last dose about an hour and half ago. Allergies and Home Medications Allergies Coded Allergies: No Known Drug Allergies (Unverified , 07/04/09) Home Medications Aspirin 325 Mg Tablet, 325 MG PO DAILY, (Reported) Atorvastatin Calcium 40 Mg Tablet, 40 MG PO HS, (Reported) Bupropion HCl 150 Mg Tab.er.24h, 150 MG PO DAILY, (Reported) TAKES ALONG WITH 300MG TABLET FOR A TOTAL DAILY DOSE OF 450MG Bupropion Hcl 300 Mg Tab.sr.24h, 300 MG PO DAILY, (Reported) TAKES ALONG WITH 150MG TABLET FOR TOTAL DAILY DOSE OF 450MG Buspirone HCl 10 Mg Tablet, 10 MG PO TID, (Reported) Calcium Carbonate/Vitamin D3 1 Each Tablet, 1 TAB PO HS, (Reported) Cephalexin 500 Mg Capsule, 500 MG PO TID Prescribed by: JAMIE VELAZQUEZ on 09/29/16 1441 Clonazepam 1 Mg Tablet, 1 MG PO HS, (Reported) Clonazepam 1 Mg Tablet, 0.5 MG PO DAILY, (Reported) TAKES 1/2 (1MG) TABLET Docusate Sodium 100 Mg Capsule, 100 MG PO BID, (Reported) Fentanyl 1 Ea Patch, 75 MCG TD Q72H, (Reported) Ferrous Sulfate 325 Mg Tablet, 325 MG PO HS, (Reported) Furosemide 20 Mg Tablet, 20 MG PO Q48H, (Reported) Gabapentin 600 Mg Tab, 600 MG PO TID, (Reported) Insulin Lispro 100 Unit/1 Ml Vial, PER PUMP, (Reported) Levothyroxine Sodium 200 Mcg Tablet, 200 MCG PO DAILY, (Reported) Metoprolol Succinate 25 Mg Tab.sr.24h, 12.5 MG PO HS, (Reported) TAKES 1/2 (25MG) TABLET Multivitamin 1 Each Tablet, 1 TAB PO DAILY, (Reported) Snover 3 Polyunsat Fatty Acids 1,000 Mg Cap, 1,000 MG PO QID, (Reported) Ondansetron 4 Mg Tab.rapdis, 4 MG PO Q4H Prescribed by: GRACE COX on 11/20/16 1048 Oxycodone HCl/Acetaminophen 1 Each Tablet, 1 TAB PO Q4H PRN for PAIN, (Reported) Pregabalin 75 Mg Capsule, 75 MG PO BID, (Reported) Sertraline HCl 100 Mg Tablet, 200 MG PO DAILY, (Reported) TAKES 2 (100MG) TABLETS ALONG WITH 50MG TABLET FOR A TOTAL DAILY DOSE OF 250MG Sertraline HCl 50 Mg Tablet, 50 MG PO DAILY, (Reported) TAKES ALONG WITH 2 (100MG) TABLETS FOR A TOTAL DAILY DOSE 250MG Patient Home Medication List Home Medication List Reviewed: Yes Review of Systems Review of Systems Constitutional: No chills; dizziness; No fever EENTM: No ear pain, No double vision, No eye pain Respiratory: No cough, No short of breath Cardiovascular: No chest pain, No edema Gastrointestinal: see HPI; No abdominal pain, No constipation, No diarrhea, No melena, No nausea Genitourinary: No discharge, No dysuria Musculoskeletal: No back pain, No joint pain Past Asacbqe-Wyldpz-Njqlhy Hx Patient Social History Alcohol Use: Denies Use Recreational Drug Use: No Smoking Status: Former Smoker Type Used: Pipe Recent Foreign Travel: No Contact w/Someone Who Travel: No Recent Infectious Disease Expo: No Recent Hopitalizations: No Immunizations Up To Date Tetanus Booster (TDap): More than 5yrs PED Vaccines UTD: No Date of Pneumonia Vaccine: Jan 02, 2012 Date of Influenza Vaccine: Jan 13, 2016 Seasonal Allergies Seasonal Allergies: No Past Medical History Surgeries: Yes (RIGHT LOWER LEG AMPUTATION) Amputation, Cardiac, CABG, Orthopedic, Vascular Surgery Respiratory: No Currently Using CPAP: No Currently Using BIPAP: No Cardiac: Yes (CABG X4 1997, CA 1997, DVT R THIGH 1997) Coronary Artery Disease, Heart Attack, High Cholesterol, Hypertension, Peripheral Vascular Neurological: Yes Neuropathy Reproductive Disorders: No Sexually Transmitted Disease: No HIV/AIDS: No Genitourinary: Yes (GFR 40-45%) Renal Failure Gastrointestinal: No Musculoskeletal: Yes (RIGHT BELOW KNEE AMP 17) Amputee, Fractures Endocrine: Yes Parathyroid Disease, Diabetes, Insulin dep, Hypothyroidsim HEENT: No Loss of Vision: Denies Hearing Impairment: Denies Cancer: No Psychosocial: Yes Anxiety, Depression Integumentary: No Blood Disorders: Yes (ANEMIA ) Adverse Reaction/Blood Tranf: No Family Medical History Cardiovascular disease 19 MOTHER Heart Disease, Cancer, Diabetes Physical Exam Vital Signs Vital Signs - First Documented 05/25/18 22:42 Temp 97.4 Pulse 79 Resp 20 B/P (MAP) 108/55 (72) Pulse Ox 99 O2 Delivery Room Air Capillary Refill : Less Than 3 Seconds Height, Weight, BMI Height: 5'10.00" Weight: 170lbs. 2.0oz. 77.466845md; 21.5 BMI Method:Stated General Appearance: No Apparent Distress, WD/WN Eyes: Bilateral Eye Normal Inspection, Bilateral Eye PERRL, Bilateral Eye EOMI HEENT: PERRL/EOMI, Normal ENT Inspection, Pharynx Normal, Moist Mucous Membranes Neck: Full Range of Motion, Normal Inspection, Non Tender, Supple Respiratory: Chest Non Tender, Lungs Clear, Normal Breath Sounds, No Accessory Muscle Use, No Respiratory Distress Cardiovascular: Regular Rate, Rhythm, No Edema, Normal Peripheral Pulses Gastrointestinal: Normal Bowel Sounds, Non Tender, Soft Extremity: Normal Capillary Refill, Other (is status post a right foot amputation. Stump is intact, nonerythematous no breakdown.) Neurologic/Psychiatric: Alert, Oriented x3 Progress/Results/Core Measures Suspected Sepsis Recent Fever Within 48 Hours: No Infection Criteria Present: None New/Unexplained Altered Menta: No Sepsis Screen: No Definite Risk SIRS Temperature:97.4 Pulse: 79 Respiratory Rate: 20 Laboratory Tests 05/25/18 23:31: White Blood Count 6.9 Blood Pressure 108 /55 Mean: 72 Laboratory Tests 05/25/18 23:31: Creatinine 1.43H, INR Comment 1.1, Platelet Count 128L, Total Bilirubin 0.2 Results/Orders Lab Results Laboratory Tests Test 05/25/18 23:31 Range/Units White Blood Count 6.9 4.3-11.0 10^3/uL Red Blood Count 2.40 L 4.35-5.85 10^6/uL Hemoglobin 7.2 L 13.3-17.7 G/DL Hematocrit 23 L 40-54 % Mean Corpuscular Volume 98 80-99 FL Mean Corpuscular Hemoglobin 30 25-34 PG Mean Corpuscular Hemoglobin Concent 31 L 32-36 G/DL Red Cell Distribution Width 16.1 H 10.0-14.5 % Platelet Count 128 L 130-400 10^3/uL Mean Platelet Volume 10.4 7.4-10.4 FL Neutrophils (%) (Auto) 79 H 42-75 % Lymphocytes (%) (Auto) 13 12-44 % Monocytes (%) (Auto) 6 0-12 % Eosinophils (%) (Auto) 2 0-10 % Basophils (%) (Auto) 0 0-10 % Neutrophils # (Auto) 5.4 1.8-7.8 X 10^3 Lymphocytes # (Auto) 0.9 L 1.0-4.0 X 10^3 Monocytes # (Auto) 0.4 0.0-1.0 X 10^3 Eosinophils # (Auto) 0.1 0.0-0.3 10^3/uL Basophils # (Auto) 0.0 0.0-0.1 10^3/uL Absolute Reticulocyte Count 103 H 24-90 10e9/L Percent Reticulocyte Count 4.28 H 0.50-2.40 % Prothrombin Time 14.2 12.2-14.7 SEC INR Comment 1.1 0.8-1.4 Activated Partial Thromboplast Time 32 24-35 SEC Sodium Level 137 135-145 MMOL/L Potassium Level 4.3 3.6-5.0 MMOL/L Chloride Level 97 L 98-107 MMOL/L Carbon Dioxide Level 30 21-32 MMOL/L Anion Gap 10 5-14 MMOL/L Blood Urea Nitrogen 22 H 7-18 MG/DL Creatinine 1.43 H 0.60-1.30 MG/DL Estimat Glomerular Filtration Rate 50 BUN/Creatinine Ratio 15 Glucose Level 142 H 70-105 MG/DL Calcium Level 8.4 L 8.5-10.1 MG/DL Corrected Calcium 9.2 8.5-10.1 MG/DL Total Bilirubin 0.2 0.1-1.0 MG/DL Aspartate Amino Transf (AST/SGOT) 89 H 5-34 U/L Alanine Aminotransferase (ALT/SGPT) 71 H 0-55 U/L Alkaline Phosphatase 92 40-136 U/L Total Protein 5.3 L 6.4-8.2 GM/DL Albumin 3.0 L 3.2-4.5 GM/DL Thyroid Stimulating Hormone (TSH) 13.57 H 0.35-4.94 UIU/ML My Orders Orders - VALENTINE THOMASON Cbc With Automated Diff (05/25/18:) Comprehensive Metabolic Panel (05/25/18:02) Protime With Inr (05/25/18:02) Partial Thromboplastin Time (05/25/18:02) Thyroid Stimulating Hormone (05/25/18:02) Ua Culture If Indicated (05/25/18:02) Type And Screen (05/25/18:02) Vital Signs: Special (Order) (05/25/18:02) Consent-Obtain Consent For (05/25/18:02) Monitor S/S Transfusion Reacti (05/25/18:02) Ns Iv 500 Ml (Sodium Chloride 0.9%) (05/25/18 23:02) Occult Blood Stool (05/25/18:02) Fentanyl Injection (Sublimaze Injection (05/25/18 23:15) Iron Tibc %Sat & Ferritin (05/25/18:02) Reticulocyte Count (05/25/18 23:02) Saline Lock/Iv-Start (05/26/18 00:03) Ns Iv 1000 Ml (Sodium Chloride 0.9%) (05/26/18 00:03) Medications Given in ED Current Medications Medications Dose Ordered Sig/Isaias Route Start Time Stop Time Status Last Admin Dose Admin Fentanyl Citrate 25 mcg ONCE ONCE IVP 05/25/18 23:15 05/25/18 23:16 DC 05/26/18 00:20 25 MCG Vital Signs/I&O 05/25/18 05/26/18 05/26/18 05/26/18 22:42 01:32 01:45 01:58 Temp 97.4 97.4 97.7 97.4 Pulse 79 79 56 79 Resp 20 20 20 B/P (MAP) 108/55 (72) 100/55 (70) 87/55 (66) 108/55 Pulse Ox 99 99 98 99 O2 Delivery Room Air Room Air 05/26/18 05/26/18 05/26/18 05/26/18 02:00 02:00 02:15 02:30 Pulse 56 60 58 B/P (MAP) 86/53 (64) 75/44 (54) 77/49 (58) Pulse Ox 98 94 100 98 O2 Delivery Room Air Room Air Room Air Room Air 05/26/18 05/26/18 05/26/18 05/26/18 02:31 02:47 03:00 04:00 Temp 97.6 97.0 Pulse 58 60 71 76 Resp 18 16 B/P (MAP) 90/35 95/45 112/79 (90) 124/72 (89) Pulse Ox 97 94 97 94 O2 Delivery Room Air Room Air Room Air Room Air 05/26/18 05/26/18 05/26/18 05:00 05:26 05:47 Temp 98.0 98.6 98.7 Pulse 86 78 79 Resp 18 16 18 B/P (MAP) 160/90 126/50 128/79 Pulse Ox 97 97 95 O2 Delivery Room Air Room Air Room Air Capillary Refill : Less Than 3 Seconds Blood Pressure Mean: 72 Progress Note : Time: 06:13 Progress Note Plan to observe him for some blood transfusion 2 units. His fecal occult was negative. We will get a reticulocyte count and iron studies and he can follow up outpatient for the source of his bleed versus destruction versus poor production. Departure Communication (Admissions) Time/Spoke to Admitting Phy: 00:15 Discussed the case with Dr. Lepe and she agrees to observe the patient give fluids and blood. Impression Primary Impression: Acute anemia Additional Impressions: Diabetes mellitus Qualified Codes: E11.40 - Type 2 diabetes mellitus with diabetic neuropathy, unspecified; Z79.4 - custodial (current) use of insulin Orthostasis Disposition: ADMITTED INPATIENT Condition: Stable Admissions Decision to Admit Reason: Admit from ER (General) Decision to Admit/Date: May 26, 2018 Time/Decision to Admit Time: 00:10 Departure-Patient Inst. Referrals: SKYLAR GELLER MD (PCP/Family) Primary Care Physician VALENTINE THOMASON May 25, 2018 23:16
[2018-05-25 23:39] LABS: ABSOLUTE RETIC # 103 10e9/L (24-90); BASOPHILS % (AUTO) 0 % (0-10); EOSINOPHILS # (AUTO) 0.1 10^3/uL (0.0-0.3); EOSINOPHILS % (AUTO) 2 % (0-10); HEMATOCRIT 23 % (40-54); HEMOGLOBIN 7.2 G/DL (13.3-17.7); LYMPHOCYTES # (AUTO) 0.9 X 10^3 (1.0-4.0); LYMPHOCYTES % (AUTO) 13 % (12-44); MEAN CORPUSCULAR HEMOGLOBIN 30 PG (25-34); MEAN CORPUSCULAR HGB CONC 31 G/DL (32-36); MEAN CORPUSCULAR VOLUME 98 FL (80-99); MEAN PLATELET VOLUME 10.4 FL (7.4-10.4); MONOCYTES # (AUTO) 0.4 X 10^3 (0.0-1.0); MONOCYTES % (AUTO) 6 % (0-12); NEUTROPHILS # (AUTO) 5.4 X 10^3 (1.8-7.8); NEUTROPHILS % (AUTO) 79 % (42-75); PLATELET COUNT 128 10^3/uL (130-400); RED CELL DISTRIBUTION WIDTH 16.1 % (10.0-14.5); RETICULOCYTE % 4.28 % (0.50-2.40); WHITE BLOOD COUNT 6.9 10^3/uL (4.3-11.0)
[2018-05-25 23:50] LABS: INR 1.1 (0.8-1.4); PROTHROMBIN TIME PATIENT 14.2 SEC (12.2-14.7)
[2018-05-25 23:58] LABS: CREATININE SERUM 1.43 MG/DL (0.60-1.30); POTASSIUM 4.3 MMOL/L (3.6-5.0)
[2018-05-25 23:59] LABS: BILIRUBIN,TOTAL 0.2 MG/DL (0.1-1.0); CALCIUM 8.4 MG/DL (8.5-10.1); TOTAL PROTEIN 5.3 GM/DL (6.4-8.2)
[2018-05-26] VITALS (14 sets, daily range): BP systolic 75–160; BP diastolic 35–90
[2018-05-26] MEDS ORDERED: NS IV 1000 ML 1,000 ML IV SCH (00:03)
--- OUTSIDE RECORDS SUMMARY | 2018-05-26 00:52 | XMS REPORT | Encounter Summary ---
Author Author [facility] Organization [facility] Address Unknown Phone Unavailable Care Team Providers Care Medical Territory Manager Name Role Phone Suzanna Velez MD Unavailable Merrick Resendez DO Unavailable Humza Kapoor MD PCP Shireen Ortiz DO Unavailable Fabrizio Simmons MD Unavailable Reason for Visit * Reason Comments Depression Encounter Details Care Team Description Date Type Department Konstantin Rivas MD [address] [place] [address] MARGIE (generalized anxiety disorder) 05/24/2018 Office Visit [facility] - Psychiatry [facility] Level 6A [address] [place] [address] Social History Date Tobacco Use [...] Taken Vital Sign Reading 05/24/2018 2:28 PM STONE POLISHER MACHINE Blood Pressure 128/86 05/24/2018 2:28 PM STONE POLISHER MACHINE Pulse 89 - Temperature - - Respiratory Rate - - Oxygen Saturation - - Inhaled Oxygen - Concentration 05/24/2018 2:28 PM STONE POLISHER MACHINE Weight 71.7 kg (158 lb) - Height - 05/24/2018 2:28 PM STONE POLISHER MACHINE Body Mass Index 22.67 in this encounter Progress Notes * Marcela Adams MD - 05/24/2018 1:45 PM STONE POLISHER MACHINE 62 y.o. male with PMH MDD, dysthymia, [...] His mood is stable. RTC 4 months. E POLISHER MACHINE * Konstantin Rivas MD - 05/24/2018 1:45 PM STONE POLISHER MACHINE Subjective: Patient presents for follow up. Patient reports that he was doing well, but around may 04 that he may have experienced a "severe diabetic ketoacidosis". He states he has missed a few classes, which he has no memory of and was taken to [facility], intubated and hospitalized in the ICU for a week, then sent to medical floor for approximately 5 days. Patient currently in [facility] for rehab. Patient was not continued on his zoloft, klonopin, abilify, or buspar at this time. Reports depressed mood and worsening anxiety. Reports sleeping 4 hours each night, denies decreased need for sleep. Denies impulsivity , elevated or expansive mood, or increase in goal directed activity. Patient denies SI, HI, or AVH. 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 E POLISHER MACHINE in this encounter Plan of Treatment Not on fileas of this encounter Visit Diagnoses Diagnosis MARGIE (generalized anxiety disorder) Generalized anxiety disorder in this encounter
--- OUTSIDE RECORDS SUMMARY | 2018-05-26 00:52 | XMS REPORT | Clinical Summary ---
Author Author [facility] Organization [facility] Address Unknown Phone Unavailable Care Team Providers Care Manager Operations And Procurement Name Role Phone Suzanna Velez MD Unavailable Merrick Resendez DO Unavailable Humza Kapoor MD PCP Shireen Ortiz DO Unavailable Fabrizio Simmons MD Unavailable Source Comments Some departments are not documenting in the electronic medical record. If you do not see the information that you expected, contact Release of Information in the Health Information Management department at [phone] for further assistance in locating additional records.[facility] Allergies No Known Allergies Medications [...] gammopathy 04/27/2017 Overview: Overview: Followed by [facility] Overview: Followed by [facility] Overview: Overview: Followed by [facility] Recurrent major depressive disorder, in full remission [...] Taken Vital Sign Reading 05/24/2018 2:28 PM BUFFER CHROME Blood Pressure 128/86 05/24/2018 2:28 PM BUFFER CHROME Pulse 89 - Temperature - 08/23/2017 1:19 PM CDT Respiratory Rate 16 - Oxygen Saturation - - Inhaled Oxygen - Concentration 05/24/2018 2:28 PM BUFFER CHROME Weight 71.7 kg (158 lb) 01/18/2018 1:17 PM CDT Height 177.8 cm (5' 10") 05/24/2018 2:28 PM BUFFER CHROME Body Mass Index 22.67 Plan of Treatment [...] MEDICARE xxxxxxxxxx Medicare PART A AND B [facility] AARP xxxxxxxxxxx PPO Advance Directives Patient has advance care planning documents on file. For more information, please contact: [facility] [address] [place] [address]
--- OUTSIDE RECORDS SUMMARY | 2018-05-26 00:52 | XMS REPORT | Encounter Summary ---
Author Author [facility] Organization [facility] Address Unknown Phone Unavailable Care Team Providers Care Trailer Chief Name Role Phone Suzanna Velez MD Unavailable Merrick Resendez DO Unavailable Humza Kapoor MD PCP Shireen Ortiz DO Unavailable Fabrizio Simmons MD Unavailable Reason for Visit * Reason Comments Other Encounter Details Care Team Description Date Type Department Konstantin Rivas MD [address] [place] [address] Other 05/25/2018 Telephone [facility] Physicians - Psychiatry [facility] Level 6A [address] [place] [address] Social History Date Tobacco Use [...]
[2018-05-26] MEDS ORDERED: NS IV 500 ML 500 ML IV SCH (04:00)
[2018-05-26] MEDS ORDERED: ACETAMINOPHEN 325 MG TABLET PO PRN (04:00)
[2018-05-26] MEDS: inSUlin ASPART (NovoLOG) 1 UNIT/0.01 ML (CHARGE PER UNIT) SC SCH ×2 (07:12→11:30)
[2018-05-26] MEDS ORDERED: oxyCODONE/APAP 10/325MG (PERCOCET 10) TABLET PO PRN (08:45)
[2018-05-26] MEDS ORDERED: FUROSEMIDE 40 MG/4 ML INJ (LASIX) IVP NR (09:00)
[2018-05-26] MEDS ORDERED: busPIRone 10 MG (BUSPAR) TAB PO SCH (09:00)
[2018-05-26] MEDS ORDERED: LEVOTHYROXINE 100 MCG (LEVOTHROID) TAB PO SCH (09:00)
[2018-05-26] MEDS ORDERED: PREGABALIN 75 MG (LYRICA) CAP PO SCH (09:00)
[2018-05-26] MEDS ORDERED: GABAPENTIN 600 MG (NEURONTIN) TAB PO SCH (09:00)
[2018-05-26] MEDS ORDERED: ASPIRIN 325 MG (5 GR) TABLET PO SCH (09:00)
[2018-05-26] MEDS ORDERED: DOCUSATE SODIUM 100 MG (COLACE) CAP PO SCH (09:00)
[2018-05-26] MEDS ORDERED: SERTRALINE 100 MG (ZOLOFT) TAB PO SCH (09:00)
[2018-05-26] MEDS ORDERED: SERTRALINE 50 MG (ZOLOFT) TABLET PO SCH (09:00)
[2018-05-26 09:34] LABS: BASOPHILS % (AUTO) 0 % (0-10); EOSINOPHILS % (AUTO) 1 % (0-10); HEMATOCRIT 30 % (40-54); HEMOGLOBIN 10.2 G/DL (13.3-17.7); LYMPHOCYTES # (AUTO) 0.8 X 10^3 (1.0-4.0); LYMPHOCYTES % (AUTO) 13 % (12-44); MEAN CORPUSCULAR HEMOGLOBIN 31 PG (25-34); MEAN CORPUSCULAR HGB CONC 34 G/DL (32-36); MEAN CORPUSCULAR VOLUME 93 FL (80-99); MONOCYTES # (AUTO) 0.4 X 10^3 (0.0-1.0); MONOCYTES % (AUTO) 6 % (0-12); NEUTROPHILS % (AUTO) 80 % (42-75); PLATELET COUNT 121 10^3/uL (130-400); WHITE BLOOD COUNT 6.3 10^3/uL (4.3-11.0)
[2018-05-26 09:51] LABS: BILIRUBIN,URINE NEGATIVE (NEGATIVE); CLARITY,URINE CLEAR; COLOR,URINE YELLOW; GLUCOSE, URINE (UA) NEGATIVE (NEGATIVE); KETONES,URINE NEGATIVE (NEGATIVE); LEUKOCYTE ESTERASE ,URINE NEGATIVE (NEGATIVE); NITRITE,URINE NEGATIVE (NEGATIVE); PH,URINE 6.5 (5-9); PROTEIN,URINE NEGATIVE (NEGATIVE); UROBILINOGEN,URINE NORMAL (NORMAL)
[2018-05-26] MEDS ORDERED: buPROPion SR 150 MG (WELLBUTRIN SR) TAB PO SCH ×3 (09:51→21:00)
[2018-05-26 09:53] LABS: ALBUMIN 3.1 GM/DL (3.2-4.5); BILIRUBIN,TOTAL 0.5 MG/DL (0.1-1.0); CALCIUM 8.4 MG/DL (8.5-10.1); CREATININE SERUM 1.39 MG/DL (0.60-1.30); POTASSIUM 4.3 MMOL/L (3.6-5.0); TOTAL PROTEIN 5.6 GM/DL (6.4-8.2)
[2018-05-26 09:59] LABS: BACTERIA,URINE NEGATIVE /HPF
[2018-05-26] MEDS ORDERED: FENTANYL PATCH REMOVAL TP SCH (10:00)
[2018-05-26] MEDS ORDERED: fentaNYL PATCH 75 MCG (DURAGESIC) TOP SCH (10:00)
[2018-05-26] MEDS ORDERED: LEVO25TA2 PO (10:48)
--- NOTE | 2018-05-26 10:58 | Short Stay Summary-Hospitalist ---
History of Present Illness HPI/Chief Complaint his is a 63-year-old white male who presented to the emergency room with complaints of dizziness. His hemoglobin was found to be 7. Hemoccult stool was negative for blood. The patient received 2 units of packed red cellsovernight and is feeling much better. Hemoglobin is up to 10.2. Iron studies are pending. He does have renal insufficiency with stage 2-3 renal failure most likely secondary to his long-standing diabetes. GFR was 50. The patient would like to pursue further evaluation as an outpatient and as he is feeling better and stable will discharge him back to [facility] for continued PT and OT. it was found that his TSH was elevated and as such he will be being discharged on additional Synthroid of 25 g a day Source: patient, old records Exam Limitations: no limitations Date Seen 05/26/18 Time Seen by a Provider: 09:00 Attending Physician Hilary Lepe MD PCP Skylar Kapoor MD Referring Physician Date of Admission May 26, 2018 at 00:20 Home Medications & Allergies Home Medications Reviewed patient Home Medication Reconciliation performed by pharmacy medication reconciliations bmw service technician and/or nursing. Patients Allergies have been reviewed. Allergies Allergies Coded Allergies No Known Drug Allergies (Unverified07/04/09) Past Ywfdiyv-Xfilef-Ytdjax Hx Past Med/Social Hx: Reviewed Nursing Past Med/Soc Hx Patient Social History Marrital Status: single Employed/Student: employed Alcohol Use: Denies Use Recreational Drug Use: No Smoking Status: Former Smoker Type Used: Pipe Recent Foreign Travel: No Contact w/other who traveled: No Recent Hopitalizations: Yes ([facility] ICU-3WEEKS AGO) Recent Infectious Disease Expo: No Immunizations Up To Date Tetanus Booster (TDap): More than 5yrs Pediatric: No Date of Pneumonia Vaccine: Apr 03, 2018 Date of Influenza Vaccine: Jan 01, 2018 Seasonal Allergies Seasonal Allergies: No Past Medical History Surgeries: Amputation, Cardiac, CABG, Orthopedic, Vascular Surgery Currently Using CPAP: No Currently Using BIPAP: No Cardiac: Coronary Artery Disease, Heart Attack, High Cholesterol, Hypertension , Peripheral Vascular Neurological: Neuropathy Reproductive: No Sexually Transmitted Disease: No HIV/AIDS: No Genitourinary: Renal Failure Musculoskeletal: Amputee, Fractures Endocrine: Parathyroid Disease, Diabetes, Insulin dep, Hypothyroidsim Loss of Vision: Denies Hearing Impairment: Denies Psychosocial: Anxiety, Depression History of Blood Disorders: Yes (ANEMIA ) Adverse Reaction to Blood Carter: No Family History Cardiovascular disease 19 MOTHER Heart Disease, Cancer, Diabetes Review of Systems Constitutional: dizziness EENTM: no symptoms reported Respiratory: no symptoms reported Cardiovascular: edema Gastrointestinal: no symptoms reported Musculoskeletal: muscle pain Skin: no symptoms reported Psychiatric/Neurological: No Symptoms Reported Physical Exam Physical Exam Vital Signs Vital Signs - First Documented 05/25/18 22:42 Temp 97.4 Pulse 79 Resp 20 B/P (MAP) 108/55 (72) Pulse Ox 99 O2 Delivery Room Air Capillary Refill : Less Than 3 Seconds Height, Weight, BMI Height: 5'10.00" Weight: 169lbs. 8.0oz. 76.672002ed; 24.3 BMI Method:Stated General Appearance: No Apparent Distress, WD/WN, Chronically ill Eyes: Bilateral Eye Normal Inspection, Bilateral Eye PERRL, Bilateral Eye EOMI HEENT: PERRL/EOMI, Normal ENT Inspection, Pharynx Normal, Moist Mucous Membranes Neck: Full Range of Motion, Normal Inspection, Non Tender, Supple Respiratory: Chest Non Tender, Lungs Clear, Normal Breath Sounds, No Accessory Muscle Use, No Respiratory Distress Cardiovascular: Regular Rate, Rhythm, Normal Peripheral Pulses, Systolic Murmur , Other (3+ edemaon the left right BKA) Gastrointestinal: Normal Bowel Sounds, Non Tender, Soft Extremity: Normal Capillary Refill, Pedal Edema, Other (is status post a right foot amputation. Stump is intact, nonerythematous no breakdown.) Neurologic/Psychiatric: Alert, Oriented x3 Results Results/Procedures Labs Laboratory Tests 05/25/18 23:31 05/26/18 09:05 Patient resulted labs reviewed. Short Stay Diagnosis Discharge Diagnosis-Short Stay Admission Diagnosis symptomatic anemia of uncertain etiology Type I diabetes Chronic renal failure with a GFR of 50 Status post AKA Hypertension Coronary artery disease Peripheral neuropathy elevated liver function tests of uncertain etiology Thrombocytopenia The patient is feeling much better and anxious to go home and will follow up with Dr. Kapoor. Final Discharge Diagnosis symptomatic anemia most likely secondary to chronic disease or renal insufficiency s/p 2 units PRBC's hypothyroidism inadequately replaced Hypertension Coronary artery disease Stage III renal insufficiency history of BKA elevated LFT's thrombocytopenia Conclusion Plan Discharge back to [facility] with PT OT and follow up with Dr. Kapoor as scheduled this next week for further evaluation. will add an additional 25 g of Synthroid to his 200 g Synthroid daily Clinical Quality Measures DVT/VTE Risk/Contraindication: Risk Factor Score Per Nursin RFS Level Per Nursing on Admit: 3=High Copy Copies To 1: SKYLAR KAPOOR MD, KATHLEEN M MD May 26, 2018 10:58
[2018-05-26] MEDS ORDERED: FERROUS SULF 325 MG (IRON) TAB PO SCH (21:00)
[2018-05-26] MEDS ORDERED: clonazePAM 1 MG (KlonoPIN) TAB PO SCH (21:00)
[2018-05-26] MEDS ORDERED: ATORVASTATIN 40 MG (LIPITOR) TABLET PO SCH (21:00)
== END 2018-05-26 12:08 ==
LOC: EDUNIT# 22:42 → ER 22:44 → ICU 05-26 00:20
PROVIDERS: ADMIT Internal Medicine; ATTEND Internal Medicine
DX: D64.9 Anemia, unspecified (principal); E03.9 Hypothyroidism, unspecified; I10 Essential (primary) hypertension; I25.10 Atherosclerotic heart disease of native coronary artery without angina pectoris; N28.9 Disorder of kidney and ureter, unspecified; E10.42 Type 1 diabetes mellitus with diabetic polyneuropathy; R94.5 Abnormal results of liver function studies; D69.6 Thrombocytopenia, unspecified; E78.00 Pure hypercholesterolemia, unspecified; I25.2 Old myocardial infarction; F41.9 Anxiety disorder, unspecified; F32.9 Major depressive disorder, single episode, unspecified; Z87.891 Personal history of nicotine dependence; Z86.718 Personal history of other venous thrombosis and embolism; Z89.511 Acquired absence of right leg below knee; Z95.1 Presence of aortocoronary bypass graft; Z79.4 Long term (current) use of insulin; Z79.82 Long term (current) use of aspirin; Z79.899 Other long term (current) drug therapy
CPT/HCPCS: 36415; 80053; 81000; 82728; 82962; 83540; 84443; 85025; 85045; 85610; 85730; 86850; 86900; 86901; 86920; 96361; 96374; G0378

== ENCOUNTER 2018-07-01 09:09 | Inpatient (IN) | payer MEDICARE ==
[2018-07-01] VITALS (13 sets, daily range): BP systolic 112–134; BP diastolic 56–78
[~2018-07-01] VITALS: Ht 177.8 cm; Wt 73.5 kg
[~2018-07-01 09:09] MED LIST changes: +LEVO25TA2 PO
--- NOTE | 2018-07-01 09:49 | ED Respiratory ---
General Chief Complaint: Respiratory Problems Stated Complaint: CONGESTION,PNEUMONIA SYMPTOMS Source: patient Exam Limitations: no limitations History of Present Illness Date Seen by Provider: Jul 01, 2018 Time Seen by Provider: 09:44 Initial Comments Patient presents to ER by private conveyance with chief complaint that he is having shortness of breath the past couple days as well as decreased exercise tolerance. He denies any chest pain but he is having some tightness or pressure across to his chest not made worse by palpation but is worse with deep inspiration. He is not having a productive cough. No fevers or chills. No nausea vomiting sweats. He does have a history of coronary disease in 1997 had a quadruple bypass but has never had to have any stents since then. He follows with a rental car deliverer at [facility]. He got out of rehabilitation for a couple weeks at [facility] within the last week or 2. Rehabilitation was because he had spent 7 days in the ICU and another week or 2 on the floor at [facility]. He is not clear why he was there is not sure if he had DKA or any cardiac problems he said his doctors weren't really clear. He says he thinks some of his medications have changed since being discharge but he does not have a list with him. He is type I diabetic and has a history of a BKA right side. He does take an aspirin daily but he does not take any blood thinners. Allergies and Home Medications Allergies Coded Allergies: No Known Drug Allergies (Unverified , 07/04/09) Home Medications Aspirin 325 Mg Tablet, 325 MG PO DAILY, (Reported) Atorvastatin Calcium 40 Mg Tablet, 40 MG PO HS, (Reported) Bupropion HCl 150 Mg Tab.er.24h, 150 MG PO DAILY, (Reported) TAKES ALONG WITH 300MG TABLET FOR A TOTAL DAILY DOSE OF 450MG Bupropion Hcl 300 Mg Tab.sr.24h, 300 MG PO DAILY, (Reported) TAKES ALONG WITH 150MG TABLET FOR TOTAL DAILY DOSE OF 450MG Buspirone HCl 10 Mg Tablet, 10 MG PO TID, (Reported) Calcium Carbonate/Vitamin D3 1 Each Tablet, 1 TAB PO HS, (Reported) Clonazepam 1 Mg Tablet, 1 MG PO HS, (Reported) Clonazepam 1 Mg Tablet, 0.5 MG PO DAILY, (Reported) TAKES 1/2 (1MG) TABLET Docusate Sodium 100 Mg Capsule, 100 MG PO BID, (Reported) Fentanyl 1 Ea Patch, 75 MCG TD Q72H, (Reported) Ferrous Sulfate 325 Mg Tablet, 325 MG PO HS, (Reported) Furosemide 20 Mg Tablet, 20 MG PO Q48H, (Reported) Insulin Lispro 100 Unit/1 Ml Vial, PER PUMP, (Reported) Levothyroxine Sodium 200 Mcg Tablet, 200 MCG PO DAILY, (Reported) Levothyroxine Sodium 25 Mcg Tablet, 25 MCG PO DAILY Prescribed by: ARSLAN AKHTAR on 05/26/18 1048 Metoprolol Succinate 25 Mg Tab.sr.24h, 12.5 MG PO HS, (Reported) TAKES 1/2 (25MG) TABLET Multivitamin 1 Each Tablet, 1 TAB PO DAILY, (Reported) Lutsen 3 Polyunsat Fatty Acids 1,000 Mg Cap, 1,000 MG PO QID, (Reported) Ondansetron 4 Mg Tab.rapdis, 4 MG PO Q4H Prescribed by: GRACE COX on 11/20/16 1048 Oxycodone HCl/Acetaminophen 1 Each Tablet, 1 TAB PO Q4H PRN for PAIN, (Reported) Pregabalin 75 Mg Capsule, 75 MG PO BID, (Reported) Sertraline HCl 100 Mg Tablet, 200 MG PO DAILY, (Reported) TAKES 2 (100MG) TABLETS ALONG WITH 50MG TABLET FOR A TOTAL DAILY DOSE OF 250MG Sertraline HCl 50 Mg Tablet, 50 MG PO DAILY, (Reported) TAKES ALONG WITH 2 (100MG) TABLETS FOR A TOTAL DAILY DOSE 250MG Patient Home Medication List Home Medication List Reviewed: Yes Review of Systems Review of Systems Constitutional: No chills, No fever, No malaise EENTM: No ear discharge, No ear pain Respiratory: cough (rare); No orthopnea, No phlegm; short of breath; No wheezing Cardiovascular: see HPI; No chest pain; Hx of Intervention Gastrointestinal: No abdominal pain, No constipation, No diarrhea, No nausea Genitourinary: No discharge, No dysuria Musculoskeletal: No back pain, No joint pain Past Hyvdcup-Szbehc-Czoikv Hx Patient Social History Alcohol Use: Denies Use Recreational Drug Use: No Type Used: Pipe Recent Foreign Travel: No Contact w/Someone Who Travel: No Recent Hopitalizations: Yes ([facility] ICU-3WEEKS AGO) Immunizations Up To Date Tetanus Booster (TDap): More than 5yrs PED Vaccines UTD: No Date of Pneumonia Vaccine: Apr 03, 2018 Date of Influenza Vaccine: Jan 01, 2018 Seasonal Allergies Seasonal Allergies: No Past Medical History Surgeries: Yes (RIGHT LOWER LEG AMPUTATION) Amputation, Cardiac, CABG, Orthopedic, Vascular Surgery Respiratory: No Currently Using CPAP: No Currently Using BIPAP: No Cardiac: Yes (CABG X4 1997, [place] 1997, DVT R THIGH 1997) Coronary Artery Disease, Heart Attack, High Cholesterol, Hypertension, Peripheral Vascular Neurological: Yes Neuropathy Reproductive Disorders: No Sexually Transmitted Disease: No HIV/AIDS: No Genitourinary: Yes (GFR 40-45%) Renal Failure Gastrointestinal: No Musculoskeletal: Yes (RIGHT BELOW KNEE AMP 17) Amputee, Fractures Endocrine: Yes Parathyroid Disease, Diabetes, Insulin dep, Hypothyroidsim HEENT: No Loss of Vision: Denies Hearing Impairment: Denies Cancer: No Psychosocial: Yes Anxiety, Depression Integumentary: No Blood Disorders: Yes (ANEMIA ) Adverse Reaction/Blood Tranf: No Family Medical History Cardiovascular disease 19 MOTHER Heart Disease, Cancer, Diabetes Physical Exam Vital Signs - First Documented 07/01/18 07/01/18 09:26 09:30 Temp 98.5 Pulse 79 Resp 18 B/P (MAP) 110/46 (67) Pulse Ox 90 O2 Delivery Room Air O2 Flow Rate 2.00 Capillary Refill : Height: 5'10.00" Weight: 169lbs. 8.0oz. 76.890761af; 24.3 BMI Method:Stated General Appearance: WD/WN, no apparent distress Eyes: Bilateral Eye Normal Inspection, Bilateral Eye PERRL, Bilateral Eye EOMI HEENT: PERRL/EOMI, normal ENT inspection, pharynx normal Neck: non-tender, normal inspection Respiratory: chest non-tender, lungs clear, normal breath sounds, no respiratory distress, no accessory muscle use Cardiovascular: normal peripheral pulses, regular rate, rhythm, no edema Gastrointestinal: normal bowel sounds, non tender, soft Extremities: normal range of motion, non-tender, normal inspection (right BKA with prostheses), no pedal edema, no calf tenderness, normal capillary refill Neurologic/Psychiatric: alert, normal mood/affect, oriented x 3 Skin: normal color, warm/dry Focused Exam Lactate Level 07/01/18 10:00: Lactic Acid Level 0.86 Lactic Acid Level Laboratory Tests Test 07/01/18 10:00 Lactic Acid Level 0.86 MMOL/L (0.50-2.00) Progress/Results/Core Measures Suspected Sepsis SIRS Temperature: Pulse: Respiratory Rate: Laboratory Tests 07/01/18 10:00: White Blood Count 9.1 Blood Pressure / Mean: 07/01/18 10:00: Lactic Acid Level 0.86 Laboratory Tests 07/01/18 10:00: Creatinine 1.53H, INR Comment 1.1, Platelet Count 130, Total Bilirubin 0.5 Results/Orders Lab Results Laboratory Tests Test 07/01/18 10:00 Range/Units White Blood Count 9.1 4.3-11.0 10^3/uL Red Blood Count 3.41 L 4.35-5.85 10^6/uL Hemoglobin 10.2 L 13.3-17.7 G/DL Hematocrit 32 L 40-54 % Mean Corpuscular Volume 94 80-99 FL Mean Corpuscular Hemoglobin 30 25-34 PG Mean Corpuscular Hemoglobin Concent 32 32-36 G/DL Red Cell Distribution Width 15.1 H 10.0-14.5 % Platelet Count 130 130-400 10^3/uL Mean Platelet Volume 10.8 H 7.4-10.4 FL Neutrophils (%) (Auto) 86 H 42-75 % Lymphocytes (%) (Auto) 6 L 12-44 % Monocytes (%) (Auto) 7 0-12 % Eosinophils (%) (Auto) 1 0-10 % Basophils (%) (Auto) 0 0-10 % Neutrophils # (Auto) 7.8 1.8-7.8 X 10^3 Lymphocytes # (Auto) 0.5 L 1.0-4.0 X 10^3 Monocytes # (Auto) 0.6 0.0-1.0 X 10^3 Eosinophils # (Auto) 0.1 0.0-0.3 10^3/uL Basophils # (Auto) 0.0 0.0-0.1 10^3/uL Neutrophils % (Manual) 89 % Lymphocytes % (Manual) 5 % Monocytes % (Manual) 6 % Band Neutrophils % Hypersegmented Neutrophils SLIGHT Toxic Granulation 2+ Prothrombin Time 14.8 H 12.2-14.7 SEC INR Comment 1.1 0.8-1.4 Activated Partial Thromboplast Time 32 24-35 SEC D-Dimer 1.04 H 0.00-0.49 UG/ML Sodium Level 139 135-145 MMOL/L Potassium Level 4.6 3.6-5.0 MMOL/L Chloride Level 97 L 98-107 MMOL/L Carbon Dioxide Level 29 21-32 MMOL/L Anion Gap 13 5-14 MMOL/L Blood Urea Nitrogen 31 H 7-18 MG/DL Creatinine 1.53 H 0.60-1.30 MG/DL Estimat Glomerular Filtration Rate 46 BUN/Creatinine Ratio 20 Glucose Level 256 H 70-105 MG/DL Lactic Acid Level 0.86 0.50-2.00 MMOL/L Calcium Level 8.7 8.5-10.1 MG/DL Corrected Calcium 9.1 8.5-10.1 MG/DL Total Bilirubin 0.5 0.1-1.0 MG/DL Aspartate Amino Transf (AST/SGOT) 30 5-34 U/L Alanine Aminotransferase (ALT/SGPT) 39 0-55 U/L Alkaline Phosphatase 77 40-136 U/L Troponin I 0.094 H <0.028 NG/ML C-Reactive Protein High Sensitivity 4.92 H 0.00-0.50 MG/DL B-Type Natriuretic Peptide 1622.3 H <100.0 PG/ML Total Protein 6.0 L 6.4-8.2 GM/DL Albumin 3.5 3.2-4.5 GM/DL Micro Results Microbiology 07/01/18 Influenza Types A,B Antigen (MERLENE) - Final, Complete My Orders Orders - VALENTINE THOMASON Chest Pa/Lat (2 View) (07/01/18 09:42) BNP (07/01/18 09:42) Cbc With Automated Diff (07/01/18 09:42) Comprehensive Metabolic Panel (07/01/18 09:42) Hs C Reactive Protein (07/01/18 09:42) Fibrin Degradation Products (07/01/18 09:42) Lactic Acid Analyzer (07/01/18 09:42) Troponin I (07/01/18 09:42) Blood Culture (07/01/18 09:42) Ekg Tracing (07/01/18 09:42) Continuous Ekg Monitoring (07/01/18 09:42) Manual Differential (07/01/18 10:00) Oxygen-Administer ,19 (07/01/18 10:14) Ct Angio Chest W (07/01/18 11:05) Iohexol Injection (Omnipaque 350 Mg/Ml 1 (07/01/18 11:30) Received Contrast (Hold Metformin- Contr (07/01/18 11:30) Sodium Chloride Flush (Catheter Flush Sy (07/01/18 11:30) Protime With Inr (07/01/18 10:00) Partial Thromboplastin Time (07/01/18 10:00) Influenza A And B Antigens (07/01/18 12:42) Furosemide Injection (Lasix Injection) (07/01/18 13:00) Medications Given in ED Current Medications Medications Dose Ordered Sig/Isaias Route Start Time Stop Time Status Last Admin Dose Admin Furosemide 40 mg ONCE ONCE IVP 07/01/18 13:00 07/01/18 13:01 DC 07/01/18 13:05 40 MG Iohexol 75 ml ONCE ONCE IV 07/01/18 11:30 07/01/18 11:31 DC 07/01/18 11:37 75 ML Sodium Chloride 10 ml NEEDED PRN IV 07/01/18 11:30 07/01/18 11:37 10 ML Vital Signs/I&O 07/01/18 07/01/18 07/01/18 07/01/18 09:26 09:30 10:58 12:10 Temp 98.5 Pulse 79 57 54 Resp 18 18 18 B/P (MAP) 110/46 (67) 118/69 (85) 117/68 (84) Pulse Ox 90 95 97 98 O2 Delivery Room Air Nasal Cannula Nasal Cannula Nasal Cannula O2 Flow Rate 2.00 2.00 2.00 Capillary Refill : Progress Note : Time: 10:12 Progress Note Patient's lungs sound clear and he has good air movement. His oxygen saturation was 87 day 90%. He is not tachycardic however he is a low-dose metoprolol succinate 12.5 mg. We'll put him on some oxygen and we will get a CT angiography of the chest if his kidneys will tolerate the contrast. PE versus pneumonia versus anemia versus other. He denies a history of COPD or asthma. ECG Initial ECG Impression Date: Jul 01, 2018 Initial ECG Impression Time: 10:08 Initial ECG Rhythm: Normal Sinus Initial ECG Intervals: Normal Initial ECG Impression: Normal Comment No significant ST elevation or depression. Diagnostic Imaging Diagonstic Imaging: Xray Plain Films/CT/US/NM/MRI: chest (2v) Comments [facility] [place] [place] NAME: TADEO SUE I [facility] REC#: [id number] PT STATUS: REG ER : 1955 PHYSICIAN: VALENTINE THOMASON MD ADMIT DATE: 07/01/18/ER Draft Date of Exam:07/01/18 CHEST PA/LAT (2 VIEW) INDICATION: Shortness of breath. TECHNIQUE: Two view chest 10:35 AM CORRELATION STUDY: 05/02/2018 FINDINGS: Poststernotomy and coronary artery bypass changes. Heart size and mediastinum are relatively stable. There is presence of pulmonary vascular congestion and edema appearing to have increased. Additionally, there is multifocal areas of patchy density throughout both lung null. This is most pronounced involving the right lung base with significant consolidation about the right lower lobe along with presence of a small to moderate right pleural effusion. Small to moderate left pleural effusion. Areas of consolidation with somewhat nodular appearance. IMPRESSION: 1. Bilateral patchy nodular opacification throughout both lung null appears overall progressed from prior study. This is most pronounced involving the right lower lobe. This may very well reflect multifocal areas of pneumonia. However, particularly given the nodularity, short-term followup imaging is recommended to document resolution to exclude underlying pulmonary masses. 2. Small to moderate pleural effusions, right greater than left. Dictated on workstation # [id number] Dict: 07/01/18 1042 Trans: 07/01/18 1054 FLAVIO [id number] Interpreted by: SHANNON RAMIERZ DO Electronically signed by: Reviewed: Reviewed by Me Diagonstic Imaging: CT (angio) Plain Films/CT/US/NM/MRI: chest Comments [facility] [place], [place] NAME: TADEO SUE I [facility] REC#: [id number] PT STATUS: REG ER : 1955 PHYSICIAN: VALENTINE THOMASON MD ADMIT DATE: 07/01/18/ER Draft Date of Exam:07/01/18 CT ANGIO CHEST W PROCEDURE: CT angiography of the chest with contrast. TECHNIQUE: Multiple contiguous axial images were obtained through the chest after uneventful bolus administration of intravenous contrast. 2D reconstructed CTA MIP acquisitions were also performed. Auto Exposure Controls were utilized during the CT exam to meet ALARA standards for radiation dose reduction. INDICATION: Elevated d-dimer, hypoxia. Recent hospitalization in the ICU x6 weeks. COMPARISON: None. FINDINGS: Patient is poststernotomy. Heart size enlarged. No significant pericardial effusion. The pulmonary arteries demonstrate no filling defect to suggest pulmonary embolism. Thoracic aortic contour unremarkable. Small hiatal hernia with minimal wall thickening lower esophagus present. No definitive pathologically enlarged mediastinal lymph nodes. Slight edema to the mediastinum. Birzvrxy-hk-hbaxk right pleural effusion with moderate left pleural effusion is present. Predominantly simple, layering dependently. Maximum thickness on the right and slightly greater than 4 cm. Consolidation about particular the lower lobes right greater than left. Some additional areas of consolidation including groundglass opacities of the bilateral upper lobes. There are somewhat patchy nodular areas of consolidation suggesting particularly the left upper lobe. The visualized portions of the upper abdomen are unremarkable. The visualized osseous structures demonstrate no acute findings. IMPRESSION: 1. No CT evidence for pulmonary embolism. 2. Moderately large right and smaller left pleural effusion predominantly simple in nature. Cardiac enlargement with features favoring presence of congestive heart failure. 3. Scattered areas of consolidation throughout both lung null most pronounced in the lower lobe distribution but also with upper lobe distribution. Features may be partly attributed to a some degree of edema, superimposed infiltrate is suspect particularly in the right lower lobe. Followup imaging evaluation is recommended. Dictated on workstation # [id number] Dict: 07/01/18 1200 Trans: 07/01/18 1223 [facility] [id number] Interpreted by: SHANNON RAMIREZ DO Electronically signed by: Reviewed: Reviewed by Ma Departure Communication (Admissions) Time/Spoke to Admitting Phy: 13:10 Discussed case lab imaging's with Dr. Oshea and she would like Dr. Dover on board. Time/Spoke to Consulting Phy: 13:25 Discussed case lab EKG findings with Dr. Dover and he would like [facility] onboard. Impression Primary Impression: Congestive heart failure Qualified Codes: I50.9 - Heart failure, unspecified Additional Impression: Hypoxia Disposition: XFER SHT-TRM HOSP Condition: Stable Admissions Decision to Admit Reason: Admit from ER (General) Decision to Admit/Date: Jul 01, 2018 Time/Decision to Admit Time: 13:08 Departure-Patient Inst. Referrals: SKYLAR GELLER MD (PCP/Family) Primary Care Physician VALENTINE THOMASON Jul 01, 2018 09:49
[2018-07-01 10:11] LABS: BASOPHILS % (AUTO) 0 % (0-10); EOSINOPHILS # (AUTO) 0.1 10^3/uL (0.0-0.3); EOSINOPHILS % (AUTO) 1 % (0-10); HEMATOCRIT 32 % (40-54); HEMOGLOBIN 10.2 G/DL (13.3-17.7); LYMPHOCYTES # (AUTO) 0.5 X 10^3 (1.0-4.0); LYMPHOCYTES % (AUTO) 6 % (12-44); MEAN CORPUSCULAR HEMOGLOBIN 30 PG (25-34); MEAN CORPUSCULAR HGB CONC 32 G/DL (32-36); MEAN CORPUSCULAR VOLUME 94 FL (80-99); MEAN PLATELET VOLUME 10.8 FL (7.4-10.4); MONOCYTES # (AUTO) 0.6 X 10^3 (0.0-1.0); MONOCYTES % (AUTO) 7 % (0-12); NEUTROPHILS # (AUTO) 7.8 X 10^3 (1.8-7.8); NEUTROPHILS % (AUTO) 86 % (42-75); PLATELET COUNT 130 10^3/uL (130-400); RED CELL DISTRIBUTION WIDTH 15.1 % (10.0-14.5); WHITE BLOOD COUNT 9.1 10^3/uL (4.3-11.0)
[2018-07-01 10:30] LABS: ALBUMIN 3.5 GM/DL (3.2-4.5); BILIRUBIN,TOTAL 0.5 MG/DL (0.1-1.0); CALCIUM 8.7 MG/DL (8.5-10.1); CREATININE SERUM 1.53 MG/DL (0.60-1.30); POTASSIUM 4.6 MMOL/L (3.6-5.0)
[2018-07-01 10:37] LABS: HYPERSEGMENTED NEUT SLIGHT; LYMPHOCYTES % (MANUAL) 5 %; MONOCYTES % (MANUAL) 6 %; NEUTROPHILS % (MANUAL) 89 %; TOXIC GRANULATION/VACUOLAZATIO 2+
[2018-07-01 10:52] LABS: FIBRIN DEGRADATION PRODUCTS 1.04 UG/ML (0.00-0.49)
--- NOTE | 2018-07-01 10:55 | Diagnostic Imaging Report ---
INDICATION: Shortness of breath. TECHNIQUE: Two view chest 10:35 AM CORRELATION STUDY: 05/02/2018 FINDINGS: Poststernotomy and coronary artery bypass changes. Heart size and mediastinum are relatively stable. There is presence of pulmonary vascular congestion and edema appearing to have increased. Additionally, there is multifocal areas of patchy density throughout both lung null. This is most pronounced involving the right lung base with significant consolidation about the right lower lobe along with presence of a small to moderate right pleural effusion. Small to moderate left pleural effusion. Areas of consolidation with somewhat nodular appearance. IMPRESSION: 1. Bilateral patchy nodular opacification throughout both lung null appears overall progressed from prior study. This is most pronounced involving the right lower lobe. This may very well reflect multifocal areas of pneumonia. However, particularly given the nodularity, short-term followup imaging is recommended to document resolution to exclude underlying pulmonary masses. 2. Small to moderate pleural effusions, right greater than left. Dictated by: Dictated on workstation # [id number]
[2018-07-01] MEDS ORDERED: CATHETER FLUSH 10 ML SYR IV PRN (11:30)
[2018-07-01] MEDS ORDERED: HOLD METFORMIN - RECEIVED CONTRAST 20 ML VIAL IV SCH (11:30)
[2018-07-01] MEDS ORDERED: IOHEXOL 350 MG/ML 100 ML (OMNIPAQUE 350) VIAL IV ONE (11:30)
--- NOTE | 2018-07-01 12:23 | Diagnostic Imaging Report ---
PROCEDURE: CT angiography of the chest with contrast. TECHNIQUE: Multiple contiguous axial images were obtained through the chest after uneventful bolus administration of intravenous contrast. 2D reconstructed CTA MIP acquisitions were also performed. Auto Exposure Controls were utilized during the CT exam to meet ALARA standards for radiation dose reduction. INDICATION: Elevated d-dimer, hypoxia. Recent hospitalization in the ICU x6 weeks. COMPARISON: None. FINDINGS: Patient is poststernotomy. Heart size enlarged. No significant pericardial effusion. The pulmonary arteries demonstrate no filling defect to suggest pulmonary embolism. Thoracic aortic contour unremarkable. Small hiatal hernia with minimal wall thickening lower esophagus present. No definitive pathologically enlarged mediastinal lymph nodes. Slight edema to the mediastinum. Weoolnsz-xt-ahnzl right pleural effusion with moderate left pleural effusion is present. Predominantly simple, layering dependently. Maximum thickness on the right and slightly greater than 4 cm. Consolidation about particular the lower lobes right greater than left. Some additional areas of consolidation including groundglass opacities of the bilateral upper lobes. There are somewhat patchy nodular areas of consolidation suggesting particularly the left upper lobe. The visualized portions of the upper abdomen are unremarkable. The visualized osseous structures demonstrate no acute findings. IMPRESSION: 1. No CT evidence for pulmonary embolism. 2. Moderately large right and smaller left pleural effusion predominantly simple in nature. Cardiac enlargement with features favoring presence of congestive heart failure. 3. Scattered areas of consolidation throughout both lung null most pronounced in the lower lobe distribution but also with upper lobe distribution. Features may be partly attributed to a some degree of edema, superimposed infiltrate is suspect particularly in the right lower lobe. Followup imaging evaluation is recommended. Dictated by: Dictated on workstation # [id number]
[2018-07-01 12:32] LABS: INR 1.1 (0.8-1.4); PROTHROMBIN TIME PATIENT 14.8 SEC (12.2-14.7)
[2018-07-01] MEDS ORDERED: FUROSEMIDE 40 MG/4 ML INJ (LASIX) IVP ONE (13:00)
[2018-07-01] MEDS ORDERED: HUMALOG (13:22)
[2018-07-01] MEDS ORDERED: ENOXAPARIN 80 MG/0.8 ML (LOVENOX) SYR SC ONE (13:30)
--- OUTSIDE RECORDS SUMMARY | 2018-07-01 13:49 | XMS REPORT | Clinical Summary ---
Author Author [facility] Organization [facility] Address Unknown Phone Unavailable Care Team Providers Care Honing Machine Try Out Setter Name Role Phone Suzanna Velez MD Unavailable Merrick Resendez DO Unavailable Humza Kapoor MD PCP Shireen Ortiz DO Unavailable Fabrizio Simmons MD Unavailable Source Comments Some departments are not documenting in the electronic medical record. If you do not see the information that you expected, contact Release of Information in the Health Information Management department at [phone] for further assistance in locating additional records.[facility] Allergies No Known Allergies Medications End [...] mg tablet by 8 tabletIndications: mouth every Anxiety with Depression morning. Active busPIRone (BUSPAR) 15 mg Take one 180 tablet 1 tabletIndications: MARGIE tablet by 8 (generalized anxiety mouth three disorder) times daily. Active sertraline (ZOLOFT) 100 Take two 180 tablet 0 mg tabletIndications: MARGIE tablets by 8 (generalized anxiety mouth daily. disorder) Active Problems Problem Noted Date Bipolar 2 disorder, major depressive episode 06/30/2017 Monoclonal gammopathy 04/27/2017 Overview: Overview: [facility]ed [facility] Overview: Followed by [facility] Overview: Overview: Followed by [facility] [place] [facility] Recurrent major depressive disorder, in full remission [...] Description Date Type Specialty Konstantin Rivas MD Medication Question 05/28/2018 Telephone Psychiatry Konstantin Rivas MD Other 05/25/2018 Telephone Psychiatry [...] Taken Vital Sign Reading 05/24/2018 2:28 PM [employer] Blood Pressure 128/86 05/24/2018 2:28 PM [employer] Pulse 89 - Temperature - 08/23/2017 1:19 PM CDT Respiratory Rate 16 - Oxygen Saturation - - Inhaled Oxygen - Concentration 05/24/2018 2:28 PM [employer] Weight 71.7 kg (158 lb) 01/18/2018 1:17 PM CDT Height 177.8 cm (5' 10") 01/18/2018 1:17 PM CDT Body Mass Index 22.67 Plan of Treatment [...] Not on filefrom Last 3 Months Insurance Type Payer Benefit Subscriber ID Effective Phone Address Plan / Dates Group Medicare MEDICARE MEDICARE xxxxxxxxxx 2006-P PART A AND resent B PPO FOR[facility]LY [facility] xxxxxxxxxxx 2016-P resent Advance Directives Patient has advance care planning documents on file. For more information, please contact: [facility] [address] [place] [address]
--- OUTSIDE RECORDS SUMMARY | 2018-07-01 13:49 | XMS REPORT | Encounter Summary ---
Author Author [facility] Organization [facility] Address Unknown Phone Unavailable Care Team Providers Care Welder 2Nd Shift Name Role Phone Suzanna Velez MD Unavailable Merrick Resendez DO Unavailable Humza Kapoor MD PCP Shireen Ortiz DO Unavailable Fabrizio Simmons MD Unavailable Reason for Visit * Reason Comments Depression Encounter Details Care Team Description Date Type Department Konstantin Rivas MD [address] [place] [address] MARGIE (generalized anxiety disorder) 05/24/2018 Office Visit [facility] [address] [facility] [address] [place] [address] Social History Date Tobacco Use Types Packs/Day Years Used Never Smoker Smokeless Tobacco: Never Used Alcohol Use Drinks/Week oz/Week Comments No 0 Standard 0.0 drinks or equivalent Sex Assigned at Date Recorded Not on file Industry Job Start Date Occupation Not on file Not on file Not on file Travel End Travel History Travel Start No recent travel history available. documented as of this encounter Last Filed Vital Signs Time Taken Vital Sign Reading 05/24/2018 2:28 PM HOT ROLL INSPECTOR Blood Pressure 128/86 05/24/2018 2:28 PM HOT ROLL INSPECTOR Pulse 89 - Temperature - - Respiratory Rate - - Oxygen Saturation - - Inhaled Oxygen - Concentration 05/24/2018 2:28 PM HOT ROLL INSPECTOR Weight 71.7 kg (158 lb) - Height - 01/18/2018 1:17 PM CDT Body Mass Index 22.67 documented in this encounter Progress Notes * Marcela Adams MD - 05/24/2018 1:45 PM HOT ROLL INSPECTOR I saw & examined the patient at time of visit. Reviewed the notes and discussed with resident. I personally performed the noel portions of the E/M visit, have discussed the patient with and concur with resident documentation of history, mental status exam, assessment, and treatment plan unless otherwise noted below. 62 y.o. male with PMH MDD, dysthymia, [...] His mood is stable. RTC 4 months. ROLL INSPECTOR * Konstantin Rivas MD - 05/24/2018 1:45 PM HOT ROLL INSPECTOR Subjective: Patient presents for follow up. Patient reports that he was doing well, but around may 04 that he may have experienced a "severe diabetic ketoacidosis". He states he has missed a few classes, which he has no memory of and was taken to [facility], intubated and hospitalized in the ICU for a week, then sent to medical floor for approximately 5 days. Patient currently in [facility] [place] for rehab. Patient was not continued on his zoloft, klonopin, abilify, or buspar at this time. Reports depressed mood and worsening anxiety. Reports sleeping 4 hours each night, denies decreased need for sleep. Denies impulsivity , elevated or expansive mood, or increase in goal directed activity. Patient denies SI, HI, or AVH. 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 Currently in rehab, may look into assisted living alf Review of Systems Cardiovascular: Negative for chest [...] questions and make suggestions regarding alternative treatment. ROLL INSPECTOR documented in this encounter Plan of Treatment Not on filedocumented as of this encounter Visit Diagnoses Diagnosis MARGIE (generalized anxiety disorder) Generalized anxiety disorder documented in this encounter
--- OUTSIDE RECORDS SUMMARY | 2018-07-01 13:49 | XMS REPORT | Encounter Summary ---
Author Author [facility] Organization [facility] Address Unknown Phone Unavailable Care Team Providers Care Meat Department Manager Name Role Phone Suzanna Velez MD Unavailable Merrick Resendez DO Unavailable Humza Kapoor MD PCP Shireen Ortiz DO Unavailable Fabrizio Simmons MD Unavailable Reason for Visit * Reason Comments Medication Question Encounter Details Care Team Description Date Type Department Konstantin Rivas MD [address] [place] [address] Medication Question 05/28/2018 Telephone [facility] [address] [facility] [address] [place] [address] Social History Date Tobacco Use [...] history available. documented as of this encounter Miscellaneous Notes * Telephone Encounter - Konstantin Rivas MD - 05/28/2018 9:14 AM SENIOR SOFTWARE ENGINEERING MANAGER Clarified with nursing staff. Patient was unaware at last appointment that he had decreased Wellbutrin to 150mg (from 450mg). Instructed nursing staff to continue Wellbutrin at 150mg at this time as patient has been doing well. OR SOFTWARE ENGINEERING MANAGER documented in this encounter Plan of Treatment Not on filedocumented as of this encounter Visit Diagnoses Not on filedocumented in this encounter
--- OUTSIDE RECORDS SUMMARY | 2018-07-01 13:49 | XMS REPORT | Encounter Summary ---
Author Author [facility] Organization [facility] Address Unknown Phone Unavailable Care Team Providers Care Container Shop Welder Name Role Phone Suzanna Velez MD Unavailable Merrick Resendez DO Unavailable Humza Kapoor MD PCP Shireen Ortiz DO Unavailable Fabrizio Simmons MD Unavailable Reason for Visit * Reason Comments Other Encounter Details Care Team Description Date Type Department Konstantin Rivas MD [address] [place] [address] Other 05/25/2018 Telephone [facility] [address] [facility] [address] [place] [address] Social History Date Tobacco Use [...] history available. documented as of this encounter Plan of Treatment Not on filedocumented as of this encounter Visit Diagnoses Not on filedocumented in this encounter
--- NOTE | 2018-07-01 13:50 | NUR ---
FOOD TRAY ORDERED WILL SEND TO ROOM
--- NOTE | 2018-07-01 14:00 | NUR ---
PATIENT VODIED 1000CC BEFORE GOING TO FLOOR.
--- NOTE | 2018-07-01 14:15 | NUR ---
REC'D PER WC FROM ER. SEE ASSESSMENT. TADEO SUE I II admitted to room 433-1, with an admitting diagnosis of CHF, on 07/01/18 from ED via WC, accompanied by STAFF. TADEO SUE II introduced to surroundings, call light, bed controls, phone, TV, temperature control, lights, meal times, smoking policy, visitor policy, side rail policy, bathrooms and showers. TADEO SUE II verbalizes understanding that [facility] is not responsible for the loss or damage to any personal effects or valuables that are kept in the patients posession during their hospitalization. The following Patient Care Plans were discussed with the PT: Discharge Planning, PAIN, AND CHF. TADEO SUE II verbalizes understanding of Interdisciplinary Patient Education. Patient and/or family were informed about the Rapid Response Team and its purpose.
[2018-07-01] MEDS ORDERED: ONDANSETRON 4 MG/2 ML (SDV) Z0FRAN IV PRN (14:45)
[2018-07-01] MEDS ORDERED: morphine INJ 4 MG/ML 1 ML (VIAL/SYRINGE) IV PRN (14:45)
[2018-07-01] MEDS ORDERED: clonazePAM 1 MG (KlonoPIN) TAB PO PRN (14:45)
[2018-07-01] MEDS ORDERED: ACETAMINOPHEN 500 MG TAB (TYLENOL) PO PRN (14:45)
--- NOTE | 2018-07-01 14:53 | NUR ---
LOVENOX 80 MG SUBCUTANEOUSLY Q12HR PER DR THOMASON RBTO 1427 07-01-18
--- NOTE | 2018-07-01 15:10 | NUR ---
SERTRALINE 250 MG PO DAILY RBTO DR SCOTT 1505 07-01-18
[2018-07-01] MEDS ORDERED: RT-ALBUTEROL SULF 2.5 MG/3 ML PRE-MIX VIAL INH PRN (16:00)
[2018-07-01] MEDS ORDERED: FUROSEMIDE 40 MG/4 ML INJ (LASIX) IV SCH (17:00)
[2018-07-01] MEDS: FUROSEMIDE 40 MG/4 ML INJ (LASIX) IV SCH (18:32)
[2018-07-01] MEDS: CATHETER FLUSH 10 ML SYR IV PRN (18:33)
--- NOTE | 2018-07-01 19:55 | NUR ---
This RN asked pt about bowel habits during assessment and pt stated that its been a couple days since his last BM and that usually at home he would take a dose of Milk of Magnesia to help him. Dr. Oshea contacted and she gave okay for Milk of Magnesia 30mL PO PRN for constipation. Order read back and confirmed.
[2018-07-01] MEDS ORDERED: MILK OF MAGNESIA 400 MG/5 ML 30 ML UDC PO PRN (20:00)
[2018-07-01] MEDS ORDERED: MILK OF MAGNESIA 400 MG/5 ML 30 ML UDC ONE (20:40)
[2018-07-01] MEDS: PREGABALIN 75 MG (LYRICA) CAP PO SCH (20:44)
[2018-07-01] MEDS: CATHETER FLUSH 10 ML SYR IV SCH (20:44)
[2018-07-01] MEDS ORDERED: ATORVASTATIN 80 MG (LIPITOR) TABLET PO SCH (21:00)
--- NOTE | 2018-07-02 | NUR ---
Pt FSBS 327. pt gave self 3.7 units humalog via insulin pump.
[2018-07-02] MEDS: ENOXAPARIN 80 MG/0.8 ML (LOVENOX) SYR SC SCH ×2 (01:04→13:49)
[2018-07-02 04:30] VITALS: BP 121/58
[2018-07-02 04:55] LABS: BASOPHILS % (AUTO) 0 % (0-10); EOSINOPHILS # (AUTO) 0.1 10^3/uL (0.0-0.3); EOSINOPHILS % (AUTO) 2 % (0-10); HEMATOCRIT 31 % (40-54); HEMOGLOBIN 10.1 G/DL (13.3-17.7); LYMPHOCYTES # (AUTO) 0.7 X 10^3 (1.0-4.0); LYMPHOCYTES % (AUTO) 9 % (12-44); MEAN CORPUSCULAR HEMOGLOBIN 30 PG (25-34); MEAN CORPUSCULAR HGB CONC 33 G/DL (32-36); MEAN CORPUSCULAR VOLUME 93 FL (80-99); MEAN PLATELET VOLUME 11.1 FL (7.4-10.4); MONOCYTES # (AUTO) 0.6 X 10^3 (0.0-1.0); MONOCYTES % (AUTO) 8 % (0-12); NEUTROPHILS # (AUTO) 6.1 X 10^3 (1.8-7.8); NEUTROPHILS % (AUTO) 81 % (42-75); PLATELET COUNT 138 10^3/uL (130-400); RED CELL DISTRIBUTION WIDTH 15.4 % (10.0-14.5); WHITE BLOOD COUNT 7.5 10^3/uL (4.3-11.0)
--- NOTE | 2018-07-02 05:00 | NUR ---
Patient blood sugar is 270. Patient gave self 2.6 units Humalog via insulin pump.
[2018-07-02 05:12] LABS: CALCIUM 9.1 MG/DL (8.5-10.1); CREATININE SERUM 1.49 MG/DL (0.60-1.30); POTASSIUM 3.8 MMOL/L (3.6-5.0)
--- NOTE | 2018-07-02 05:54 | NUR ---
New battery placed in patient insulin pump.
[2018-07-02] MEDS: CATHETER FLUSH 10 ML SYR IV SCH ×3 (06:19→19:39)
[2018-07-02] MEDS: FUROSEMIDE 40 MG/4 ML INJ (LASIX) IV SCH (06:19)
[2018-07-02] MEDS ORDERED: LEVOTHYROXINE 125 MCG (LEVOTHROID) TABLET PO SCH (06:30)
[2018-07-02] MEDS ORDERED: LEVOTHYROXINE 100 MCG (LEVOTHROID) TAB PO SCH (06:30)
[2018-07-02] MEDS ORDERED: buPROPion SR 150 MG (WELLBUTRIN SR) TAB PO SCH (07:00)
--- NOTE | 2018-07-02 07:58 | Consultation-Cardiology ---
HPI-Cardiology Cardiology Consultation Date of Consultation 07/02/18 Date of Admission Time Seen by Provider: 07:52 Indication: shortness of breath HPI 63 years old gentleman with history of coronary artery disease, chronic kidney disease, diabetes mellitus and hypertension. Admitted for increasing shortness of breath for the past 2 days, has been having worsening dyspnea, felt tightness all over his chest. No palpitation, syncope or near syncopal episode. There was questionable history of congestive heart failure. X-ray showed bilateral pleural effusion and questionable pulmonary infiltrate. Patient was admitted and started on diuretics. Cardiac enzymes so far are negative, no acute EKG changes, denied any active chest pain. Upon my evaluation he was sitting in bed comfortably. Denied any active pain. Does not appear to be in distress. Home Medications & Allergies Allergies: Coded Allergies: No Known Drug Allergies (Unverified , 07/01/18) Home Medication List Reviewed: Yes VCN-Xrozhb-Uqzoto Hx Patient Social History Marital Status: Employed/Student: employed Alcohol Use: Denies Use Recreational Drug Use: No Type Used: Pipe Recent Foreign Travel: No Recent Infectious Disease Expo: No Recent Hopitalizations: Yes ([place] [facility]-3WEEKS AGO) Physical Abuse Screen: No Sexual Abuse: No Immunizations Up To Date Tetanus Booster (TDap): More than 5yrs Date of Pneumonia Vaccine: Apr 03, 2018 Date of Influenza Vaccine: Jan 01, 2018 Past Medical History past medical history as described below Family Medical History Significant Family History: Heart Disease, Cancer, Diabetes Family History: Cardiovascular disease 19 MOTHER Review of Systems Constitutional: see HPI; No chills, No diaphoresis, No dizziness, No fever; malaise; No weakness, No weight gain, No weight loss, No other EENTM: see HPI, no symptoms reported Respiratory: see HPI, cough (occasional), dyspnea on exertion; No hemoptysis; orthopnea; No phlegm; short of breath; No stridor, No wheezing, No other Cardiovascular: see HPI, chest pain; No edema, No Hx of Intervention, No palpitations, No syncope, No vascular heart diseas, No other Gastrointestinal: no symptoms reported, see HPI Genitourinary: no symptoms reported, see HPI Musculoskeletal: see HPI, joint pain, other (right BKA) Skin: no symptoms reported, see HPI Psychiatric/Neurological: No Symptoms Reported, See HPI Reviewed Test Results Reviewed Test Results Lab Laboratory Tests Test 07/01/18 10:00 07/01/18 16:27 07/01/18 18:01 07/01/18 22:03 Range/Units White Blood Count 9.1 4.3-11.0 10^3/uL Red Blood Count 3.41 L 4.35-5.85 10^6/uL Hemoglobin 10.2 L 13.3-17.7 G/DL Hematocrit 32 L 40-54 % Mean Corpuscular Volume 94 80-99 FL Mean Corpuscular Hemoglobin 30 25-34 PG Mean Corpuscular Hemoglobin Concent 32 32-36 G/DL Red Cell Distribution Width 15.1 H 10.0-14.5 % Platelet Count 130 130-400 10^3/uL Mean Platelet Volume 10.8 H 7.4-10.4 FL Neutrophils (%) (Auto) 86 H 42-75 % Lymphocytes (%) (Auto) 6 L 12-44 % Monocytes (%) (Auto) 7 0-12 % Eosinophils (%) (Auto) 1 0-10 % Basophils (%) (Auto) 0 0-10 % Neutrophils # (Auto) 7.8 1.8-7.8 X 10^3 Lymphocytes # (Auto) 0.5 L 1.0-4.0 X 10^3 Monocytes # (Auto) 0.6 0.0-1.0 X 10^3 Eosinophils # (Auto) 0.1 0.0-0.3 10^3/uL Basophils # (Auto) 0.0 0.0-0.1 10^3/uL Neutrophils % (Manual) 89 % Lymphocytes % (Manual) 5 % Monocytes % (Manual) 6 % Band Neutrophils % Hypersegmented Neutrophils SLIGHT Toxic Granulation 2+ Prothrombin Time 14.8 H 12.2-14.7 SEC INR Comment 1.1 0.8-1.4 Activated Partial Thromboplast Time 32 24-35 SEC D-Dimer 1.04 H 0.00-0.49 UG/ML Sodium Level 139 135-145 MMOL/L Potassium Level 4.6 3.6-5.0 MMOL/L Chloride Level 97 L 98-107 MMOL/L Carbon Dioxide Level 29 21-32 MMOL/L Anion Gap 13 5-14 MMOL/L Blood Urea Nitrogen 31 H 7-18 MG/DL Creatinine 1.53 H 0.60-1.30 MG/DL Estimat Glomerular Filtration Rate 46 BUN/Creatinine Ratio 20 Glucose Level 256 H 70-105 MG/DL Lactic Acid Level 0.86 0.50-2.00 MMOL/L Calcium Level 8.7 8.5-10.1 MG/DL Corrected Calcium 9.1 8.5-10.1 MG/DL Total Bilirubin 0.5 0.1-1.0 MG/DL Aspartate Amino Transf (AST/SGOT) 30 5-34 U/L Alanine Aminotransferase (ALT/SGPT) 39 0-55 U/L Alkaline Phosphatase 77 40-136 U/L Troponin I 0.094 H 0.071 H 0.048 H <0.028 NG/ML C-Reactive Protein High Sensitivity 4.92 H 0.00-0.50 MG/DL B-Type Natriuretic Peptide 1622.3 H <100.0 PG/ML Total Protein 6.0 L 6.4-8.2 GM/DL Albumin 3.5 3.2-4.5 GM/DL Glucometer 310 H 70-110 MG/DL Test 07/01/18 23:59 07/02/18 04:10 Range/Units Glucometer 327 H 70-110 MG/DL White Blood Count 7.5 4.3-11.0 10^3/uL Red Blood Count 3.34 L 4.35-5.85 10^6/uL Hemoglobin 10.1 L 13.3-17.7 G/DL Hematocrit 31 L 40-54 % Mean Corpuscular Volume 93 80-99 FL Mean Corpuscular Hemoglobin 30 25-34 PG Mean Corpuscular Hemoglobin Concent 33 32-36 G/DL Red Cell Distribution Width 15.4 H 10.0-14.5 % Platelet Count 138 130-400 10^3/uL Mean Platelet Volume 11.1 H 7.4-10.4 FL Neutrophils (%) (Auto) 81 H 42-75 % Lymphocytes (%) (Auto) 9 L 12-44 % Monocytes (%) (Auto) 8 0-12 % Eosinophils (%) (Auto) 2 0-10 % Basophils (%) (Auto) 0 0-10 % Neutrophils # (Auto) 6.1 1.8-7.8 X 10^3 Lymphocytes # (Auto) 0.7 L 1.0-4.0 X 10^3 Monocytes # (Auto) 0.6 0.0-1.0 X 10^3 Eosinophils # (Auto) 0.1 0.0-0.3 10^3/uL Basophils # (Auto) 0.0 0.0-0.1 10^3/uL Sodium Level 136 135-145 MMOL/L Potassium Level 3.8 3.6-5.0 MMOL/L Chloride Level 94 L 98-107 MMOL/L Carbon Dioxide Level 30 21-32 MMOL/L Anion Gap 12 5-14 MMOL/L Blood Urea Nitrogen 31 H 7-18 MG/DL Creatinine 1.49 H 0.60-1.30 MG/DL Estimat Glomerular Filtration Rate 47 BUN/Creatinine Ratio 21 Glucose Level 270 H 70-105 MG/DL Calcium Level 9.1 8.5-10.1 MG/DL Physical Exam Vital Signs Vital Signs - First Documented 07/01/18 07/01/18 07/01/18 09:26 09:30 15:52 Temp 98.5 Pulse 79 Resp 18 B/P (MAP) 110/46 (67) Pulse Ox 90 O2 Delivery Room Air O2 Flow Rate 2.00 FiO2 28 Capillary Refill : Less Than 3 Seconds Height, Weight, BMI Height: 5'10.00" Weight: 166lbs. 7.0oz. 75.218038rk; 24.0 BMI Method:Stated General Appearance: No Apparent Distress, WD/WN Eyes: Bilateral Eye Normal Inspection, Bilateral Eye PERRL, Bilateral Eye EOMI HEENT: PERRL/EOMI, TMs Normal, Normal ENT Inspection, Pharynx Normal Neck: Full Range of Motion, Normal Inspection, Non Tender, Supple, Carotid Bruit Respiratory: Chest Non Tender, No Accessory Muscle Use, No Respiratory Distress , Crackles (at the bases) Cardiovascular: Regular Rate, Rhythm, No Edema, No JVD, No Murmur, Normal Peripheral Pulses, Gallop/S3 Gastrointestinal: Normal Bowel Sounds, No Organomegaly, No Pulsatile Mass, Non Tender, Soft Back: Normal Inspection, No CVA Tenderness, No Vertebral Tenderness Extremity: Normal Capillary Refill, Normal Inspection, Normal Range of Motion, Non Tender, No Calf Tenderness, No Pedal Edema Neurologic/Psychiatric: Alert, Oriented x3, No Motor/Sensory Deficits, Normal Mood/Affect Skin: Normal Color, Warm/Dry Lymphatic: No Adenopathy A/P-Cardiology Admission Diagnosis Shortness of breath Congestive heart failure Chest pain Coronary artery disease Assessment/Plan Shortness of breath, acute on chronic left ventricular systolic dysfunction, congestive heart failure, responding to diuretics. Continue with diuresis and monitor. Chest pain, reported as tightness, could be secondary to increasing pleural effusion, cardiac enzymes were negative, EKG monitored and did not show any acute changes, reporting improvement in his chest tightness at this time. No recent cardiac workup, will require to have a stress test once clinically more stable. Bilateral pleural effusion, probably secondary to heart failure and kidney failure. Continue with diuretics and monitor Questionable pulmonary infiltrate, no leukocytosis. No fever or chills. Consult Dr. Walsh for evaluation. Coronary artery disease, history of CABG 4 done in the remote past. No recent cardiac workup, has been following with Dr Paige, a reinforcing steel worker in [place]. Chronic kidney disease, history of acute renal failure. Continue to monitor renal function while on aggressive diuretics Hypertension, restart home medication and monitor blood pressure Hyperlipidemia, maintained on Lipitor 80 mg daily Hypothyroidism, maintained on thyroid replacement Diabetes mellitus. Followed and managed by primary care physician Anemia, history of severe anemia requiring transfusion, had workup done as an outpatient, followed by primary care physician. 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
[2018-07-02 08:00] VITALS: BP 131/63
[2018-07-02] MEDS ORDERED: ASPIRIN E.C. 81 MG (ECOTRIN) TAB PO SCH (09:00)
[2018-07-02] MEDS ORDERED: lisINopril 5 MG (PRINIVIL) TABLET PO SCH (09:00)
[2018-07-02] MEDS ORDERED: SERTRALINE 100 MG (ZOLOFT) TAB PO SCH (09:00)
--- NOTE | 2018-07-02 09:25 | NUR ---
DR. GARCIA NOTIFIED OF CONSULT.
[2018-07-02] MEDS: PREGABALIN 75 MG (LYRICA) CAP PO SCH (09:38)
--- NOTE | 2018-07-02 11:00 | NUR ---
ECHO DONE THIS AM AT BEDSIDE.
[2018-07-02 12:00] VITALS: BP 138/61
[2018-07-02] MEDS ORDERED: LEVO25TA5 PO (12:55)
[2018-07-02] MEDS ORDERED: NITR0.4T42 SL (12:55)
[2018-07-02] MEDS ORDERED: PANT40TA3 PO (12:55)
[2018-07-02] MEDS ORDERED: MAGN400O7 PO (12:55)
[2018-07-02] MEDS ORDERED: NA P133E22 RC (12:55)
[2018-07-02] MEDS ORDERED: OMG1KC PO (12:55)
[2018-07-02] MEDS ORDERED: DOCU-163 PO (12:55)
[2018-07-02] MEDS ORDERED: MELA5CAP PO (12:55)
[2018-07-02] MEDS ORDERED: LEVO150T6 PO (12:55)
[2018-07-02] MEDS ORDERED: CARV3.122 PO (12:55)
[2018-07-02] MEDS ORDERED: LISI-556 PO (12:55)
[2018-07-02] MEDS ORDERED: MULT-1029 PO (12:55)
[2018-07-02] MEDS ORDERED: ASCO500T6 PO (12:55)
[2018-07-02] MEDS ORDERED: ASPI-983 PO (12:55)
[2018-07-02] MEDS ORDERED: CHOL20003 PO (12:55)
[2018-07-02] MEDS ORDERED: INSU100I10 SQ (12:55)
[2018-07-02] MEDS ORDERED: PREG200C PO (12:55)
[2018-07-02] MEDS ORDERED: BISA10SU6 RC (12:55)
[2018-07-02] MEDS ORDERED: ACET325T38 PO (12:55)
[2018-07-02] MEDS ORDERED: FURO40TA4 PO (12:55)
[2018-07-02] MEDS ORDERED: ATOR80TA76 PO (12:55)
[2018-07-02] MEDS ORDERED: TAMS0.4C98 PO (12:55)
--- NOTE | 2018-07-02 13:08 | NUR ---
PATIENT HAD A LIST OF HIS DISCHARGE MEDICATION ORDERS FROM [facility] ON 06-22-18. HE STATES HE HAS BEEN FOLLOWING THAT LIST WITH JUST A FEW EXCEPTIONS. THE LIST STATES LANTUS 20 UNITS DAILY, HE STATES HE IS NO LONGER USING LANTUS HE ONLY USES HUMALOG VIA HIS INSULIN PUMP, HUMALOG WAS NOT ON THE LIST BUT I UPDATED THE MED REC ACCORDINGLY. ALSO THERE ARE TWO ORDERS FOR COLACE, HE STATES HE ONLY TAKES 2 DAILY. THE LIST STATES NITRO 0.3MG HOWEVER IT LOOKS LIKE DESIRE FILLED THE 0.4MG ACCORDING TO THE EXT MED HX SO THAT IS WHAT I ENTERED ON THE MED REC AT THIS TIME.
--- NOTE | 2018-07-02 13:55 | Diagnostic Imaging Report ---
Indication: Congestive heart failure. Time of exam: 1:40 PM Correlation is made with prior study from 07/01/2018. Changes of median sternotomy are identified. Bilateral effusions slightly greater on the right appear to be stable. Patchy airspace infiltrate in the right base is also stable. Mid and upper lung null remain clear. No pneumothorax is seen. Impression: Stable bilateral effusions and right basilar airspace infiltrate when compared with examination one day earlier. Dictated by: Dictated on workstation # [id number]
--- NOTE | 2018-07-02 15:03 | Pulmonary Consultation ---
History of Present Illness History of Present Illness Date of Consultation 07/02/18 14:58 Date of Admission Reason for Visit: shortness of breath Allergies and Home Medications Allergies Coded Allergies: No Known Drug Allergies (Unverified , 07/01/18) Home Medications Acetaminophen 325 Mg Tablet, 650 MG PO Q4H PRN for PAIN-MILD, (Reported) Ascorbic Acid 500 Mg Tablet, 500 MG PO DAILY, (Reported) Aspirin 81 Mg Tablet.dr, 81 MG PO DAILY, (Reported) Atorvastatin Calcium 80 Mg Tablet, 80 MG PO DAILY, (Reported) Bisacodyl 10 Mg Supp.rect, 10 MG RC DAILY PRN for CONSTIPATION-4TH LINE, ( Reported) Bupropion HCl 150 Mg Tab.er.24h, 150 MG PO DAILY, (Reported) Carvedilol 3.125 Mg Tablet, 3.125 MG PO BID, (Reported) HOLD IF SBP<100 OR DBP<60 OR PULSE </= 60 Cholecalciferol (Vitamin D3) 2,000 Unit Capsule, 2,000 UNIT PO DAILY, (Reported) Docusate Sodium 100 Mg Capsule, 200 MG PO DAILY, (Reported) Furosemide 40 Mg Tablet, 40 MG PO BID, (Reported) Insulin Lispro 100 Unit/1 Ml Vial, PER PUMP, (Reported) Levothyroxine Sodium 25 Mcg Tablet, 25 MCG PO DAILY, (Reported) Levothyroxine Sodium 150 Mcg Tablet, 150 MCG PO DAILY, (Reported) TAKES ALONG WITH 25MCG TABLET Lisinopril 5 Mg Tablet, 5 MG PO DAILY, (Reported) HOLD IF SBP<100 OR DBP<60 Magnesium Hydroxide 400 Mg/5 Ml Oral.susp, 30 ML PO DAILY PRN for CONSTIPATION- 7TH LINE, (Reported) Melatonin 5 Mg Capsule, 5 MG PO HS, (Reported) Multivit-Min/FA/Lycopene/Lut 1 Each Tablet, 1 TAB PO DAILY, (Reported) Na Phos,M-B/Na Phos,Di-Ba 133 Ml Enema, 133 ML RC DAILY PRN for CONSTIPATION, ( Reported) Nitroglycerin 0.4 Mg Tab.subl, 0.4 MG SL UD PRN for CHEST PAIN, (Reported) [place] 3 Polyunsat Fatty Acids 1,000 Mg Cap, 1,000 MG PO QID, (Reported) Pantoprazole Sodium 40 Mg Tablet.dr, 40 MG PO DAILY, (Reported) Pregabalin 200 Mg Capsule, 200 MG PO BID, (Reported) Sertraline HCl 100 Mg Tablet, 200 MG PO DAILY, (Reported) TAKES 2 (100MG) TABLETS Tamsulosin HCl 0.4 Mg Cap, 0.4 MG PO DAILY, (Reported) Past Bkrtwfk-[id number]-Fozzfp Hx Patient Social History Alcohol Use: Denies Use Recreational Drug Use: No Type Used: Pipe Recent Foreign Travel: No Contact w/Someone Who Travel: No Recent Infectious Disease Expo: No Recent Hopitalizations: Yes ([facility] ICU-3WEEKS AGO) Immunizations Up To Date Tetanus Booster (TDap): More than 5yrs PED Vaccines UTD: No Date of Pneumonia Vaccine: Apr 03, 2018 Date of Influenza Vaccine: Jan 01, 2018 Seasonal Allergies Seasonal Allergies: No Past Medical History Surgeries: Yes (RIGHT LOWER LEG AMPUTATION) Amputation, Cardiac, CABG, Orthopedic, Vascular Surgery Respiratory: No Currently Using CPAP: No Currently Using BIPAP: No Cardiac: Yes (CABG X4 1997, ME 1997, DVT R THIGH 1997) Coronary Artery Disease, Heart Attack, High Cholesterol, Hypertension, Peripheral Vascular Neurological: Yes Neuropathy Reproductive Disorders: No Sexually Transmitted Disease: No HIV/AIDS: No Genitourinary: Yes (GFR 40-45%) Renal Failure Gastrointestinal: No Musculoskeletal: Yes (RIGHT BELOW KNEE AMP 17) Amputee, Fractures Endocrine: Yes Parathyroid Disease, Diabetes, Insulin dep, Hypothyroidsim HEENT: No Loss of Vision: Denies Hearing Impairment: Denies Cancer: No Psychosocial: Yes Anxiety, Depression Integumentary: No Blood Disorders: Yes (ANEMIA ) Adverse Reaction/Blood Tranf: No Family Medical History Cardiovascular disease 19 MOTHER Heart Disease, Cancer, Diabetes Sepsis Event Evaluation Height, Weight, BMI Height: 5'10.00" Weight: 166lbs. 7.0oz. 75.721083vm; 24.0 BMI Method:Stated Exam Exam Vital Signs Date Time Temp Pulse Resp B/P (MAP) Pulse Ox O2 Delivery O2 Flow Rate FiO2 07/02/18 12:59 58 07/02/18 12:00 97.6 58 20 138/61 (86) 99 Nasal Cannula 2.00 07/02/18 08:00 98.5 64 20 131/63 (85) 96 Room Air 07/02/18 08:00 Nasal Cannula 2.00 07/02/18 07:01 64 07/02/18 04:30 98.6 68 16 121/58 (79) 94 Nasal Cannula 1.00 07/02/18 01:00 64 07/01/18 23:44 96.8 62 16 134/78 (96) 98 07/01/18 20:28 65 07/01/18 20:00 Nasal Cannula 1.00 07/01/18 19:04 96.0 94 16 133/66 (88) 98 07/01/18 17:58 97.0 63 14 122/63 (82) 99 Nasal Cannula 2.00 07/01/18 17:03 96.0 63 16 113/58 (76) 97 07/01/18 16:12 100 Nasal Cannula 2.00 07/01/18 16:06 96.6 62 16 130/76 (94) 100 Room Air 07/01/18 15:52 60 100 28 07/01/18 15:37 59 07/01/18 15:15 97.6 60 20 131/69 (89) 100 Nasal Cannula 2.00 07/01/18 15:00 97.4 63 18 130/67 (88) 94 2.00 I & O 07/02/18 06:59 Intake Total 1220 ml Output Total 1300 ml Balance -80 ml Height & Weight Height: 5'10.00" Weight: 166lbs. 7.0oz. 75.394190in; 24.0 BMI Method:Stated General Appearance: No Apparent Distress, WD/WN HEENT: PERRL/EOMI, TMs Normal, Normal ENT Inspection, Pharynx Normal Neck: Full Range of Motion, Normal Inspection, Non Tender, Supple, Carotid Bruit Respiratory: Chest Non Tender, No Accessory Muscle Use, No Respiratory Distress , Crackles (at the bases) Cardiovascular: Regular Rate, Rhythm, No Edema, No JVD, No Murmur, Normal Peripheral Pulses, Gallop/S3 Capillary Refill: Less Than 3 Seconds Gastrointestinal: normal bowel sounds, non tender, soft Extremity: Normal Capillary Refill, Normal Inspection, Normal Range of Motion, Non Tender, No Calf Tenderness, No Pedal Edema Neurologic/Psychiatric: Alert, Oriented x3, No Motor/Sensory Deficits, Normal Mood/Affect Skin: Normal Color, Warm/Dry Lymphatic: No Adenopathy Results Lab Laboratory Tests 07/01/18 10:00 07/02/18 04:10 Assessment/Plan Assessment/Plan Shortness of breath with hypoxia secondary to CHFAE -Continue Lasix -Check ABG -SVNS -Montior close Pulmonary infiltrates - probably secondary to pulmonary congestion -doubt PNA - - NO leukocytosis, No fever, No productive cough -Lasix and monitor Congestive heart failure -Lasix -Cardiology following Chest pain Coronary artery disease SHEILA GARCIA DO Jul 02, 2018 15:03
[2018-07-02 16:00] VITALS: BP 117/57
--- NOTE | 2018-07-02 16:16 | NUR ---
Pt is Jainism. Cloud Developer provided prayer and Communion.
--- NOTE | 2018-07-02 16:18 | History & Physical-Hospitalist ---
History of Present Illness HPI/Chief Complaint The patient is a 63-year-old white male whom I have known for 30 years or more. He is a juvenile type diabetic. He has been afflicted with many of the complications of diabetes. He reports that he was in a [facility] earlier this year as he was sent there because we were on diversion. He thinks he was there for about 3 weeks and returned home to a local halfway for physical therapy. He has been back home for a week or more. He is vague about why he came to the emergency room yesterday. He at first said that he was not short of breath but when rephrased stated this had been a problem for just a few days. He states that since he received Lasix yesterday he has been breathing better. He does not seem to be totally bought in to the concept of tight control of his diabetes. He has an insulin pump but his regimen is incomprehensible to me. He is unable to give me a hemoglobin A1c of recent date. Date Seen 07/02/18 Time Seen by a Provider: 16:13 Attending Physician Ashlyn Oshea MD PCP Humza Kapoor MD Referring Physician Date of Admission Jul 01, 2018 at 13:40 Home Medications & Allergies Home Medications Reviewed patient Home Medication Reconciliation performed by pharmacy medication reconciliations engineering specialist technician and/or nursing. Patients Allergies have been reviewed. Allergies Allergies Coded Allergies No Known Drug Allergies (Unverified07/01/18) Past Gmaxmcp-Wzywpm-Vrucxo Hx Patient Social History Marrital Status: Employed/Student: employed Alcohol Use: Denies Use Recreational Drug Use: No Type Used: Pipe Physical Abuse Screen: No Sexual Abuse: No Recent Foreign Travel: No Contact w/other who traveled: No Recent Hopitalizations: Yes ([facility] ICU-3WEEKS AGO) Recent Infectious Disease Expo: No Immunizations Up To Date Tetanus Booster (TDap): More than 5yrs Pediatric: No Date of Pneumonia Vaccine: Apr 03, 2018 Date of Influenza Vaccine: Jan 01, 2018 Seasonal Allergies Seasonal Allergies: No Past Medical History Surgeries: Amputation, Cardiac, CABG, Orthopedic, Vascular Surgery Currently Using CPAP: No Currently Using BIPAP: No Cardiac: Coronary Artery Disease, Heart Attack, High Cholesterol, Hypertension , Peripheral Vascular Neurological: Neuropathy Reproductive: No Sexually Transmitted Disease: No HIV/AIDS: No Genitourinary: Renal Failure Musculoskeletal: Amputee, Fractures Endocrine: Parathyroid Disease, Diabetes, Insulin dep, Hypothyroidsim Loss of Vision: Denies Hearing Impairment: Denies Psychosocial: Anxiety, Depression History of Blood Disorders: Yes (ANEMIA ) Adverse Reaction to Blood Carter: No Family History Cardiovascular disease 19 MOTHER Heart Disease, Cancer, Diabetes Review of Systems Constitutional: see HPI EENTM: no symptoms reported Respiratory: cough, dyspnea on exertion Physical Exam Physical Exam Vital Signs Vital Signs - First Documented 07/01/18 07/01/18 07/01/18 09:26 09:30 15:52 Temp 98.5 Pulse 79 Resp 18 B/P (MAP) 110/46 (67) Pulse Ox 90 O2 Delivery Room Air O2 Flow Rate 2.00 FiO2 28 Capillary Refill : Less Than 3 SecondsLess Than 3 Seconds Height, Weight, BMI Height: 5'10.00" Weight: 166lbs. 7.0oz. 75.115608jy; 24.0 BMI Method:Stated Results Results/Procedures Labs Laboratory Tests 07/01/18 10:00 07/02/18 04:10 Patient resulted labs reviewed. Clinical Quality Measures DVT/VTE Risk/Contraindication: Risk Factor Score Per Nursin RFS Level Per Nursing on Admit: 4+=Very High HOLLI DAVIS MD Jul 02, 2018 16:18
[2018-07-02] MEDS ORDERED: ACETAMINOPHEN 325 MG TABLET PO PRN (16:30)
[2018-07-02] MEDS ORDERED: BISACODYL 10 MG SUPP (DULCOLAX) RC PRN (16:30)
[2018-07-02] MEDS ORDERED: NITROGLYCERIN 0.4 MG SL TABS BTL 25'S SL PRN (16:30)
[2018-07-02] MEDS: TAMSULOSIN 0.4 MG (FLOMAX) CAP PO SCH (16:58)
[2018-07-02] MEDS: FUROSEMIDE 40 MG (LASIX) TAB PO SCH (16:58)
[2018-07-02] MEDS: OMEGA 3 (FISH OIL) 1000 MG CAP PO SCH ×2 (16:58→19:38)
[2018-07-02 19:36] VITALS: BP 121/70
[2018-07-02] MEDS: CARVEDILOL 3.125 MG (COREG) TABLET PO SCH (19:38)
[2018-07-02] MEDS: ATORVASTATIN 80 MG (LIPITOR) TABLET PO SCH (19:38)
[2018-07-02] MEDS: MELATONIN 3 MG TABLET PO SCH (19:38)
[2018-07-02] MEDS: PREGABALIN 100 MG (LYRICA) CAPSULE PO SCH (19:38)
[2018-07-02] MEDS: MILK OF MAGNESIA 400 MG/5 ML 30 ML UDC PO PRN (22:05)
[2018-07-03] VITALS (7 sets, daily range): BP systolic 103–138; BP diastolic 57–67
[2018-07-03] MEDS: ENOXAPARIN 80 MG/0.8 ML (LOVENOX) SYR SC SCH ×2 (01:58→14:03)
[2018-07-03 04:55] LABS: HEMOGLOBIN 9.9 G/DL (13.3-17.7); MEAN PLATELET VOLUME 10.6 FL (7.4-10.4); WHITE BLOOD COUNT 5.7 10^3/uL (4.3-11.0)
[2018-07-03 05:15] LABS: CALCIUM 8.8 MG/DL (8.5-10.1); CREATININE SERUM 1.38 MG/DL (0.60-1.30); MAGNESIUM 2.6 MG/DL (1.8-2.4); POTASSIUM 3.9 MMOL/L (3.6-5.0)
[2018-07-03] MEDS: FUROSEMIDE 40 MG (LASIX) TAB PO SCH ×2 (05:55→16:46)
[2018-07-03] MEDS: LEVOTHYROXINE 25 MCG (LEVOTHROID) TAB PO SCH (05:55)
[2018-07-03] MEDS: LEVOTHYROXINE 150 MCG (LEVOTHROID) TAB PO SCH (05:55)
[2018-07-03] MEDS: CATHETER FLUSH 10 ML SYR IV SCH ×3 (05:56→20:14)
--- NOTE | 2018-07-03 07:20 | Cardiology Progress Note ---
Subjective Date Seen by Provider: Jul 03, 2018 Time Seen by Provider: 07:17 Subjective/Events-last exam patient is sitting in bed, feeling better, breathing better, denied any active chest pain Review of Systems General: No Chills, No Night Sweats, No Fatigue, No Malaise, No Appetite, No Other HEENT: No Head Aches, No Visual Changes, No Eye Pain, No Ear Pain, No Dysphasia , No Sinus Congestion, No Post Nasal Drip, No Sore Throat, No Other Pulmonary: Dyspnea; No Cough, No Pleuritic Chest Pain, No Other Cardiovascular: No: Chest Pain, Palpitations, Orthopnea, Paroxysmal Noc. Dyspnea, Edema, Lt Headedness, Other Focused Exam Lactate Level 07/01/18 10:00: Lactic Acid Level 0.86 Objective-Cardiology Exam Last Set of Vital Signs Vital Signs 07/01/18 07/03/18 15:52 04:06 Temp 95.5 Pulse 52 Resp 20 B/P (MAP) 114/65 (81) Pulse Ox 96 O2 Delivery Nasal Cannula O2 Flow Rate 2.00 FiO2 28 Capillary Refill : Less Than 3 SecondsLess Than 3 Seconds I&O Intake and Output 07/03/18 00:00 Intake Total 2840 ml Output Total 2975 ml Balance -135 ml Intake Oral 2840 ml Output Urine Total 2975 ml General: Alert, Oriented X3, Cooperative HEENT: Atraumatic, PERRLA Neck: Supple, No JVD, No Thyromegaly Lungs: Clear to Auscultation, Normal Air Movement Heart: Regular Rate, Normal S1, Normal S2, Other (systolic murmur at the left sternal border) Abdomen: Normal Bowel Sounds, Soft, No Tenderness, No Hepatosplenomegaly, No Masses Extremities: No Clubbing, No Cyanosis, No Edema, Normal Pulses, No Tenderness/ Swelling Skin: No Rashes, No Breakdown, No Significant Lesion Neuro: Normal Speech, Normal Tone, Sensation Intact, Other (right BKA) Psych/Mental Status: Mental Status NL, Mood NL Results Lab Laboratory Tests 07/03/18 04:40 07/03/18 04:45 A/P-Cardiology Admission Diagnosis Shortness of breath Congestive heart failure Chest pain Coronary artery disease Assessment/Plan Shortness of breath, acute on chronic left ventricular systolic dysfunction, congestive heart failure, echocardiogram showed ejection fraction 30-35 percent with inferior wall akinesia, hypokinesia of the anterior wall, probably ischemic in nature. Planning to proceed with Lexiscan stress test. Continue on diuretics for now. Chest pain, reported as tightness, improved at this point, EKG did not show any acute abnormality, cardiac enzymes are negative, patient had ischemic cardiomyopathy with inferior wall akinesia. Planning to proceed with stress test. Bilateral pleural effusion, probably secondary to heart failure and kidney failure. Continue with diuretics and monitor Coronary artery disease, history of CABG 4 done in the remote past. No recent cardiac workup, has been following with Dr Paige, a health sciences program coordinator in [place], planning to proceed with stress test Chronic kidney disease, history of acute renal failure. Continue to monitor renal function while on aggressive diuretics Hypertension, better control, continue to monitor Hyperlipidemia, maintained on Lipitor 80 mg daily, continue to monitor lipids Hypothyroidism, maintained on thyroid replacement Diabetes mellitus. Followed and managed by primary care physician Anemia, history of severe anemia requiring transfusion, had workup done as an outpatient, followed by primary care physician. 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
[2018-07-03] MEDS ORDERED: REGADENOSON 0.4 MG/5 ML SYR (LEXISCAN) IV ONE ×2 (07:30→12:06)
--- NOTE | 2018-07-03 07:38 | Pulmonary Progress Note ---
Subjective Time Seen by a Provider: 08:10 Subjective/Events-last exam No complications noted. Pt feels improved. Sepsis Event Evaluation Height, Weight, BMI Height: 5'10.00" Weight: 162lbs. 0.0oz. 73.458881gh; 24.0 BMI Method:Stated Focused Exam Lactate Level 07/01/18 10:00: Lactic Acid Level 0.86 Exam Exam Vital Signs Date Time Temp Pulse Resp B/P (MAP) Pulse Ox O2 Delivery O2 Flow Rate FiO2 07/03/18 04:06 95.5 52 20 114/65 (81) 96 Nasal Cannula 2.00 07/03/18 01:00 50 07/03/18 00:07 96.5 50 20 113/67 (82) 100 Nasal Cannula 2.00 07/02/18 23:50 Nasal Cannula 2.00 07/02/18 20:31 Nasal Cannula 2.00 07/02/18 19:36 96.2 58 20 121/70 (87) 100 Nasal Cannula 2.00 07/02/18 19:00 70 07/02/18 16:00 97.6 55 18 117/57 (77) 100 Nasal Cannula 2.00 07/02/18 12:59 58 07/02/18 12:00 97.6 58 20 138/61 (86) 99 Nasal Cannula 2.00 07/02/18 08:00 98.5 64 20 131/63 (85) 96 Room Air 07/02/18 08:00 Nasal Cannula 2.00 I & O 07/03/18 07:00 Intake Total 2540 ml Output Total 2475 ml Balance 65 ml Height & Weight Height: 5'10.00" Weight: 162lbs. 0.0oz. 73.906611vi; 24.0 BMI Method:Stated General Appearance: No Apparent Distress, WD/WN HEENT: PERRL/EOMI, TMs Normal, Normal ENT Inspection, Pharynx Normal Neck: Full Range of Motion, Normal Inspection, Non Tender, Supple, Carotid Bruit Respiratory: Chest Non Tender, No Accessory Muscle Use, No Respiratory Distress , Crackles (at the bases) Cardiovascular: Regular Rate, Rhythm, No Edema, No JVD, No Murmur, Normal Peripheral Pulses, Gallop/S3 Capillary Refill: Less Than 3 Seconds Gastrointestinal: normal bowel sounds, non tender, soft Extremity: Normal Capillary Refill, Normal Inspection, Normal Range of Motion, Non Tender, No Calf Tenderness, No Pedal Edema Neurologic/Psychiatric: Alert, Oriented x3, No Motor/Sensory Deficits, Normal Mood/Affect Skin: Normal Color, Warm/Dry Lymphatic: No Adenopathy Results Lab Laboratory Tests 07/01/18 10:00 07/02/18 04:10 07/03/18 04:40 07/03/18 04:45 Assessment/Plan Assessment/Plan Shortness of breath with hypoxia secondary to CHFAE -plan is for stress test today -Continue Lasix -CXR reviewed -SVNS -Montior close Pulmonary infiltrates - probably secondary to pulmonary congestion -doubt PNA - - NO leukocytosis, No fever, No productive cough -Lasix and monitor Congestive heart failure -Lasix -Cardiology following Chest pain Coronary artery disease SHEILA GARCIA DO Jul 03, 2018 07:38
[2018-07-03] MEDS: CATHETER FLUSH 10 ML SYR IV PRN (10:57)
--- NOTE | 2018-07-03 11:09 | NUR ---
OFF FLOOR AT THIS TIME FOR NUCLEAR STRESS TEST, THIS RN WILL ASSUME CARE OF THIS PATIENT WHEN HE ARRIVES BACK TO THIS FLOOR.
--- NOTE | 2018-07-03 11:56 | Progress Note-Hospitalist ---
Progress Note Progress Notes/Assess & Plan Date Seen 07/03/18 Time Seen by Provider: 11:56 Assessment & Plan Patient out of the room for stress testing Focused Exam Lactate Level 07/01/18 10:00: Lactic Acid Level 0.86 HOLLI DAVIS MD Jul 03, 2018 11:56
--- NOTE | 2018-07-03 13:48 | NUR ---
provided prayer and Communion.
[2018-07-03] MEDS: ASPIRIN E.C. 81 MG (ECOTRIN) TAB PO SCH (13:57)
[2018-07-03] MEDS: CARVEDILOL 3.125 MG (COREG) TABLET PO SCH ×2 (13:58→20:13)
[2018-07-03] MEDS: SERTRALINE 100 MG (ZOLOFT) TAB PO SCH (13:58)
[2018-07-03] MEDS: OMEGA 3 (FISH OIL) 1000 MG CAP PO SCH ×4 (13:58→20:13)
[2018-07-03] MEDS: PANTOPRAZOLE 40 MG (PROTONIX) TAB PO SCH (13:58)
[2018-07-03] MEDS: lisINopril 5 MG (PRINIVIL) TABLET PO SCH (13:58)
[2018-07-03] MEDS: ASCORBIC ACID (VIT C) 500 MG TABLET PO SCH (13:58)
[2018-07-03] MEDS: buPROPion SR 150 MG (WELLBUTRIN SR) TAB PO SCH (14:02)
[2018-07-03] MEDS: PREGABALIN 100 MG (LYRICA) CAPSULE PO SCH ×2 (14:02→20:13)
[2018-07-03] MEDS: MILK OF MAGNESIA 400 MG/5 ML 30 ML UDC PO PRN (14:03)
--- NOTE | 2018-07-03 14:46 | NUR ---
DR. PAYAN NOTIFIED AT THIS TIME OF HIS DECREASED PULSE. METOPROLOL HELD THIS A.M. FOR PROCEDURE THEN HELD INDEFINITELY DUE TO PULSE READING. Addendum: 07/03/18 at 1449 by JUAQUIN ANDERSON RN HELD FOR TODAY ONLY BY THIS RN DUE TO DECREASED PULSE.
--- NOTE | 2018-07-03 16:14 | STRESS TEST ---
DATE OF SERVICE: 07/03/2018 LEXISCAN MYOVIEW STRESS TEST REPORT REFERRING PHYSICIAN: Dr. Kapoor. Baseline heart rate is 51. Baseline blood pressure 122/67. Baseline EKG is sinus rhythm with no ischemic changes. Poor R-wave progression, occasional PVCs. In summary, the patient was injected with 10.4 mCi of technetium-99 Myoview and the resting images were obtained. Then, the patient received 0.4 mg of Lexiscan, followed by 32.3 mCi of technetium-99 Myoview. Throughout the test, there were no EKG changes. The resting and stress images were reviewed and compared in the short axis, horizontal long axis, and vertical long axis views. Review of the images showed decreased uptake involving the whole inferior wall, inferolateral wall and inferoposterior wall with subtle reversibility. SSS is 28. SDS is 3. TID value 0.93. On the gated images, the left ventricle appeared to be dilated with inferior wall severe hypokinesia to akinesia inferoposterior wall and inferolateral wall. Calculated ejection fraction 25%. CONCLUSION: 1. The patient tolerated Lexiscan well. 2. Total infarction of the whole inferior wall, inferoposterior wall and inferolateral wall with small area of bruce-infarct ischemia. 3. Dilated left ventricle with severe hypokinesia to akinesia of the inferior wall, inferoposterior wall and inferolateral wall. Calculated ejection fraction 25%. Job ID: [id number] DocumentID: [id number] Dictated Date: 07/03/2018 15:15:39 Integrity Specialist Date: 07/03/2018 16:13:33 Dictated By: MAHESH PAYAN MD
[2018-07-03] MEDS: TAMSULOSIN 0.4 MG (FLOMAX) CAP PO SCH (17:03)
[2018-07-03] MEDS: MELATONIN 3 MG TABLET PO SCH (20:13)
[2018-07-03] MEDS: ATORVASTATIN 80 MG (LIPITOR) TABLET PO SCH (20:13)
[2018-07-04 00:15] VITALS: BP 95/55
[2018-07-04] MEDS: ENOXAPARIN 80 MG/0.8 ML (LOVENOX) SYR SC SCH ×3 (01:38→12:47)
[2018-07-04 03:27] VITALS: BP 116/69
[2018-07-04] MEDS: LEVOTHYROXINE 25 MCG (LEVOTHROID) TAB PO SCH (05:55)
[2018-07-04] MEDS: LEVOTHYROXINE 150 MCG (LEVOTHROID) TAB PO SCH (05:55)
[2018-07-04] MEDS: CATHETER FLUSH 10 ML SYR IV SCH ×2 (05:55→12:45)
[2018-07-04] MEDS: FUROSEMIDE 40 MG (LASIX) TAB PO SCH ×2 (05:55→17:09)
--- NOTE | 2018-07-04 07:10 | NUR ---
Dr. Duarte notified of bladder scan at 771 mls residual. New order rec to straight cath x 1.
[2018-07-04 08:00] VITALS: BP 112/55
--- NOTE | 2018-07-04 08:21 | Cardiology Progress Note ---
Subjective Date Seen by Provider: Jul 04, 2018 Time Seen by Provider: 08:18 Subjective/Events-last exam Patient is in bed, feeling better, had difficulty urinating yesterday, no chest pain Review of Systems General: No Chills, No Night Sweats, No Fatigue, No Malaise, No Appetite, No Other HEENT: No Head Aches, No Visual Changes, No Eye Pain, No Ear Pain, No Dysphasia , No Sinus Congestion, No Post Nasal Drip, No Sore Throat, No Other Pulmonary: No Dyspnea, No Cough, No Pleuritic Chest Pain, No Other Cardiovascular: No: Chest Pain, Palpitations, Orthopnea, Paroxysmal Noc. Dyspnea, Edema, Lt Headedness, Other Focused Exam Lactate Level 07/01/18 10:00: Lactic Acid Level 0.86 Objective-Cardiology Exam Last Set of Vital Signs Vital Signs 07/01/18 07/04/18 07/04/18 15:52 03:27 07:00 Temp 97.6 Pulse 45 Resp 16 B/P (MAP) 116/69 (85) Pulse Ox 99 O2 Delivery Nasal Cannula O2 Flow Rate 1.00 FiO2 28 Capillary Refill : Less Than 3 SecondsLess Than 3 Seconds I&O Intake and Output 07/03/18 23:59 Intake Total 820 ml Output Total 1800 ml Balance -980 ml Intake Oral 820 ml Output Urine Total 1800 ml General: Alert, Oriented X3, Cooperative HEENT: Atraumatic, PERRLA Neck: Supple, No JVD, No Thyromegaly Lungs: Clear to Auscultation, Normal Air Movement Heart: Regular Rate, Normal S1, Normal S2, Other (systolic murmur at the left sternal border) Abdomen: Normal Bowel Sounds, Soft, No Tenderness, No Hepatosplenomegaly, No Masses Extremities: No Clubbing, No Cyanosis, No Edema, Normal Pulses, No Tenderness/ Swelling Skin: No Rashes, No Breakdown, No Significant Lesion Neuro: Normal Speech, Normal Tone, Sensation Intact, Other (right BKA) Psych/Mental Status: Mental Status NL, Mood NL Results Lab Laboratory Tests Test 07/03/18 13:33 07/03/18 18:22 07/04/18 00:16 07/04/18 05:43 Range/Units Glucometer 213 H 408 *H 352 H 295 H 70-110 MG/DL A/P-Cardiology Admission Diagnosis Shortness of breath Congestive heart failure Chest pain Coronary artery disease Assessment/Plan Shortness of breath, acute on chronic left ventricular systolic dysfunction, congestive heart failure, echocardiogram showed ejection fraction 30-35 percent with inferior wall akinesia, hypokinesia of the anterior wall, ischemic in nature Chest pain, reported as tightness, improved at this point, EKG did not show any acute abnormality, cardiac enzymes are negative, patient had ischemic cardiomyopathy with inferior wall akinesia. Stress test showed total infarction of inferior wall, small periinfarct ischemia, had a long discussion with the patient and his son, planning for viability study, trying to avoid the heart cath due to renal failure Bilateral pleural effusion, probably secondary to heart failure and kidney failure. Continue with diuretics and monitor Coronary artery disease, history of CABG 4 done in the remote past. No recent cardiac workup, has been following with Dr Paige, a surgical coordinator in [place], requested to have the viability study here and he will follow with my office Chronic kidney disease, history of acute renal failure. Continue to monitor renal function while on aggressive diuretics Hypertension, better control, continue to monitor Hyperlipidemia, maintained on Lipitor 80 mg daily, continue to monitor lipids Hypothyroidism, maintained on thyroid replacement Diabetes mellitus. Followed and managed by primary care physician Anemia, history of severe anemia requiring transfusion, had workup done as an outpatient, followed by primary care physician. 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
[2018-07-04] MEDS ORDERED: REGADENOSON 0.4 MG/5 ML SYR (LEXISCAN) IV ONE (08:30)
[2018-07-04 08:48] VITALS: BP 116/69
--- NOTE | 2018-07-04 09:02 | Progress Note-Hospitalist ---
Subjective HPI/CC On Admission Date Seen by Provider: Jul 04, 2018 Time Seen by Provider: 09:15 The patient is a 63-year-old white male whom I have known for 30 years or more. He is a juvenile type diabetic. He has been afflicted with many of the complications of diabetes. He reports that he was in a [facility] earlier this year as he was sent there because we were on diversion. He thinks he was there for about 3 weeks and returned home to a local longterm for physical therapy. He has been back home for a week or more. He is vague about why he came to the emergency room yesterday. He at first said that he was not short of breath but when rephrased stated this had been a problem for just a few days. He states that since he received Lasix yesterday he has been breathing better. He does not seem to be totally bought in to the concept of tight control of his diabetes. He has an insulin pump but his regimen is incomprehensible to me. He is unable to give me a hemoglobin A1c of recent date. Focused Exam Lactate Level Objective Exam Vital Signs Vital Signs Date Time Temp Pulse Resp B/P (MAP) Pulse Ox O2 Delivery O2 Flow Rate FiO2 07/04/18 12:57 49 07/04/18 08:48 98 Nasal Cannula 1.00 07/04/18 08:48 24 07/04/18 08:00 98.1 18 112/55 (74) Capillary Refill : Less Than 3 SecondsLess Than 3 Seconds General Appearance: No Apparent Distress, WD/WN HEENT: PERRL/EOMI, TMs Normal, Normal ENT Inspection, Pharynx Normal Neck: Full Range of Motion, Normal Inspection, Non Tender, Supple, Carotid Bruit Respiratory: Chest Non Tender, No Accessory Muscle Use, No Respiratory Distress , Crackles (at the bases) Cardiovascular: Regular Rate, Rhythm, No Edema, No JVD, No Murmur, Normal Peripheral Pulses, Gallop/S3 Gastrointestinal: Normal Bowel Sounds, No Organomegaly, No Pulsatile Mass, Non Tender, Soft Back: Normal Inspection, No CVA Tenderness, No Vertebral Tenderness Extremity: Normal Capillary Refill, Normal Inspection, Normal Range of Motion, Non Tender, No Calf Tenderness, No Pedal Edema Neurologic/Psychiatric: Alert, Oriented x3, No Motor/Sensory Deficits, Normal Mood/Affect Skin: Normal Color, Warm/Dry Lymphatic: No Adenopathy Results/Procedures Lab Laboratory Tests 07/04/18 09:42 Patient resulted labs reviewed. Clinical Quality Measures DVT/VTE Risk/Contraindication: Risk Factor Score Per Nursin RFS Level Per Nursing on Admit: 4+=Very High HOWARD HILTON DO Jul 04, 2018 09:02
[2018-07-04] MEDS: OMEGA 3 (FISH OIL) 1000 MG CAP PO SCH ×3 (09:38→17:09)
[2018-07-04] MEDS: PREGABALIN 100 MG (LYRICA) CAPSULE PO SCH (09:38)
[2018-07-04] MEDS: buPROPion SR 150 MG (WELLBUTRIN SR) TAB PO SCH (09:38)
[2018-07-04] MEDS: ASCORBIC ACID (VIT C) 500 MG TABLET PO SCH (09:38)
[2018-07-04] MEDS: PANTOPRAZOLE 40 MG (PROTONIX) TAB PO SCH (09:38)
[2018-07-04] MEDS: ASPIRIN E.C. 81 MG (ECOTRIN) TAB PO SCH (09:38)
[2018-07-04] MEDS: SERTRALINE 100 MG (ZOLOFT) TAB PO SCH (09:38)
--- NOTE | 2018-07-04 09:41 | NUR ---
prior to a.m. medications pulse was 52bpm abd b/p was 112/52
[2018-07-04 09:50] LABS: BASOPHILS % (AUTO) 1 % (0-10); EOSINOPHILS # (AUTO) 0.2 10^3/uL (0.0-0.3); EOSINOPHILS % (AUTO) 4 % (0-10); HEMATOCRIT 31 % (40-54); HEMOGLOBIN 9.9 G/DL (13.3-17.7); LYMPHOCYTES # (AUTO) 0.9 X 10^3 (1.0-4.0); LYMPHOCYTES % (AUTO) 18 % (12-44); MEAN CORPUSCULAR HEMOGLOBIN 30 PG (25-34); MEAN CORPUSCULAR HGB CONC 32 G/DL (32-36); MEAN CORPUSCULAR VOLUME 93 FL (80-99); MONOCYTES # (AUTO) 0.4 X 10^3 (0.0-1.0); MONOCYTES % (AUTO) 8 % (0-12); NEUTROPHILS # (AUTO) 3.5 X 10^3 (1.8-7.8); NEUTROPHILS % (AUTO) 70 % (42-75); PLATELET COUNT 147 10^3/uL (130-400); RED CELL DISTRIBUTION WIDTH 15.1 % (10.0-14.5)
[2018-07-04 10:10] LABS: ALBUMIN 3.3 GM/DL (3.2-4.5); BILIRUBIN,TOTAL 0.4 MG/DL (0.1-1.0); CALCIUM 9.2 MG/DL (8.5-10.1); CREATININE SERUM 1.44 MG/DL (0.60-1.30); TOTAL PROTEIN 5.8 GM/DL (6.4-8.2)
[2018-07-04] MEDS ORDERED: BETHANECHOL 25 MG (URECHOLINE) TAB PO NR (10:30)
[2018-07-04] MEDS: CARVEDILOL 3.125 MG (COREG) TABLET PO SCH (10:44)
[2018-07-04] MEDS: lisINopril 5 MG (PRINIVIL) TABLET PO SCH (10:44)
[2018-07-04 12:00] VITALS: BP 124/64
--- NOTE | 2018-07-04 12:40 | CONSULTATION REPORT ---
DATE OF SERVICE: 07/04/2018 ATTENDING PHYSICIAN: Dr. Wright. SUMMARY: A 63-year-old white man diabetic, admitted because of congestive heart failure, was found to have retention despite trial of voiding. Flomax daily was initiated on 07/02/2018 and Urecholine 25 q.i.d., before meals and at bedtime. This morning, the patient has a catheter in. He denies any previous voiding symptoms. Denies any medications for the bladder prostate and/or surgeries. No infections. IMPRESSION: Urinary retention, neurogenic with or without benign prostatic hyperplasia. PLAN: Continue present management. Tomorrow morning, we will give him trial of voiding and manage accordingly. If he continues to have retention, we will work him up. We will see him as well as an outpatient in the office. Thank you for letting me participate in the care of this patient. We will follow with you. Job ID: [id number] DocumentID: [id number] Dictated Date: 07/04/2018 11:49:16 Supervisory Lifeguard Date: 07/04/2018 12:39:31 Dictated By: JOSE WATERMAN MD
[2018-07-04] MEDS: MILK OF MAGNESIA 400 MG/5 ML 30 ML UDC PO PRN (12:44)
--- NOTE | 2018-07-04 12:57 | Pulmonary Progress Note ---
Sepsis Event Evaluation Height, Weight, BMI Height: 5'10.00" Weight: 162lbs. 0.0oz. 73.914372hr; 24.0 BMI Method:Stated Exam Exam Vital Signs Date Time Temp Pulse Resp B/P (MAP) Pulse Ox O2 Delivery O2 Flow Rate FiO2 07/04/18 08:48 98 Nasal Cannula 1.00 07/04/18 08:48 53 98 24 07/04/18 08:00 98.1 52 18 112/55 (74) 98 Room Air 07/04/18 08:00 98 Nasal Cannula 1.00 07/04/18 07:00 45 07/04/18 03:27 97.6 52 16 116/69 (85) 99 Nasal Cannula 1.00 07/04/18 01:00 45 07/04/18 00:15 97.3 50 16 95/55 (68) 100 Nasal Cannula 1.00 07/03/18 20:15 Nasal Cannula 2.00 07/03/18 20:09 97.5 58 18 103/57 (72) 100 Nasal Cannula 2.00 07/03/18 19:00 60 07/03/18 16:00 97.9 58 20 108/63 (78) 98 Nasal Cannula 2.00 07/03/18 13:00 59 I & O 07/04/18 07:00 Intake Total 820 ml Output Total 1800 ml Balance -980 ml Height & Weight Height: 5'10.00" Weight: 162lbs. 0.0oz. 73.692448rt; 24.0 BMI Method:Stated General Appearance: No Apparent Distress, WD/WN HEENT: PERRL/EOMI, TMs Normal, Normal ENT Inspection, Pharynx Normal Neck: Full Range of Motion, Normal Inspection, Non Tender, Supple, Carotid Bruit Respiratory: Chest Non Tender, No Accessory Muscle Use, No Respiratory Distress , Crackles (at the bases) Cardiovascular: Regular Rate, Rhythm, No Edema, No JVD, No Murmur, Normal Peripheral Pulses, Gallop/S3 Capillary Refill: Less Than 3 Seconds Gastrointestinal: normal bowel sounds, non tender, soft Extremity: Normal Capillary Refill, Normal Inspection, Normal Range of Motion, Non Tender, No Calf Tenderness, No Pedal Edema Neurologic/Psychiatric: Alert, Oriented x3, No Motor/Sensory Deficits, Normal Mood/Affect Skin: Normal Color, Warm/Dry Lymphatic: No Adenopathy Results Lab Laboratory Tests 07/03/18 04:40 07/03/18 04:45 07/04/18 09:42 Assessment/Plan Assessment/Plan Shortness of breath with hypoxia secondary to CHFAE -Lasix -SVNS -Montior close Pulmonary infiltrates - probably secondary to pulmonary congestion -doubt PNA - - NO leukocytosis, No fever, No productive cough -Lasix and monitor Congestive heart failure -Lasix -Cardiology following Chest pain Coronary artery disease SHEILA GARCIA DO Jul 04, 2018 12:57
--- NOTE | 2018-07-04 13:46 | Discharge Summary-Hospitalist ---
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 (7) Peripheral vascular disease Status: Chronic Discharge Summary Discharge Physical Exam Allergies: Coded Allergies: No Known Drug Allergies (Unverified , 07/01/18) Vitals & I&Os Vital Signs Date Time Temp Pulse Resp B/P (MAP) Pulse Ox O2 Delivery O2 Flow Rate FiO2 07/04/18 17:15 49 18 124/64 96 Room Air 07/04/18 12:00 97.6 07/04/18 08:48 1.00 07/04/18 08:48 24 General Appearance: No Apparent Distress, WD/WN, Chronically ill Neurologic/Psychiatric: Alert, Oriented x3, Normal Mood/Affect, Other (right AKA) Hospital Course Was the Problem List Reviewed?: Yes Hospital Course: Pt had an uneventful hospital course. He was admitted for congestive heart failure exacerbation with hypoxia. Pt had chronic renal insufficiency so he was closely monitored and underwent a cardiac stress test. Due to renal function we will undergo a viability cardiac study under Dr. Dover' s recommendation tomorrow and follow up the following day for final results and conclusions. He did have urinary retention and he was cathed with a straight catheter at 7:00 this morning and did end up voiding a large amount and emptied with no residual on bladder scan. Dr Rivers was formally consulted and will have follow up with him if this symptom continues. I did review all his home medication. Dr. Dover made all the recommended changes. Labs (last 24 hrs) Laboratory Tests 07/04/18 00:16: Glucometer 352H 07/04/18 05:43: Glucometer 295H 07/04/18 09:42: White Blood Count 5.0, Red Blood Count 3.30L, Hemoglobin 9.9L, Hematocrit 31L, Mean Corpuscular Volume 93, Mean Corpuscular Hemoglobin 30, Mean Corpuscular Hemoglobin Concent 32, Red Cell Distribution Width 15.1H, Platelet Count 147, Mean Platelet Volume 10.0, Neutrophils (%) (Auto) 70, Lymphocytes (%) (Auto) 18 , Monocytes (%) (Auto) 8, Eosinophils (%) (Auto) 4, Basophils (%) (Auto) 1, Neutrophils # (Auto) 3.5, Lymphocytes # (Auto) 0.9L, Monocytes # (Auto) 0.4, Eosinophils # (Auto) 0.2, Basophils # (Auto) 0.0, Sodium Level 140, Potassium Level 4.0, Chloride Level 98, Carbon Dioxide Level 34H, Anion Gap 8, Blood Urea Nitrogen 32H, Creatinine 1.44H, Estimat Glomerular Filtration Rate 49, BUN/ Creatinine Ratio 22, Glucose Level 209H, Calcium Level 9.2, Corrected Calcium 9.8, Total Bilirubin 0.4, Aspartate Amino Transf (AST/SGOT) 18, Alanine Aminotransferase (ALT/SGPT) 29, Alkaline Phosphatase 75, Total Protein 5.8L, Albumin 3.3 07/04/18 11:12: Glucometer 236H Microbiology 07/01/18 Blood Culture - Preliminary, Resulted No growth 07/01/18 Influenza Types A,B Antigen (MERLENE) - Final, Complete Patient resulted labs reviewed. Pending Labs Discussion & Recommendations Discharge Planning: <30 minutes discharge planning Discharge Home Medications: Active Scripts Active Urecholine (Bethanechol Chloride) 25 Mg Tablet 25 Mg PO ACHS 14 Days Flomax (Tamsulosin HCl) 0.4 Mg Cap 0.4 Mg PO DAILY 30 Days Reported Melatonin 5 Mg Capsule 5 Mg PO HS Lisinopril 5 Mg Tablet 5 Mg PO DAILY HOLD IF SBP<100 OR DBP<60 Milk of Magnesia (Magnesium Hydroxide) 400 Mg/5 Ml Oral.susp 30 Ml PO DAILY PRN Tylenol (Acetaminophen) 325 Mg Tablet 650 Mg PO Q4H PRN Lyrica (Pregabalin) 200 Mg Capsule 200 Mg PO BID Dulcolax Stool Softener (Docusate Sodium) 100 Mg Capsule 200 Mg PO DAILY Centrum Silver Tablet (Multivit-Min/FA/Lycopene/Lut) 1 Each Tablet 1 Tab PO DAILY Fish Oil 1,000 mg Capsule ([place] 3 Polyunsat Fatty Acids) 1,000 Mg Cap 1,000 Mg PO QID Fleet Enema (Na Phos,M-B/Na Phos,Di-Ba) 133 Ml Enema 133 Ml RC DAILY PRN Bisacodyl 10 Mg Supp.rect 10 Mg RC DAILY PRN Vitamin D3 (Cholecalciferol (Vitamin D3)) 2,000 Unit Capsule 2,000 Unit PO DAILY Vitamin C (Ascorbic Acid) 500 Mg Tablet 500 Mg PO DAILY Flomax (Tamsulosin HCl) 0.4 Mg Cap 0.4 Mg PO DAILY Nitroglycerin 0.4 Mg Tab.subl 0.4 Mg SL UD PRN Pantoprazole Sodium 40 Mg Tablet.dr 40 Mg PO DAILY Levothyroxine Sodium 150 Mcg Tablet 150 Mcg PO DAILY TAKES ALONG WITH 25MCG TABLET Carvedilol 3.125 Mg Tablet 3.125 Mg PO BID HOLD IF SBP<100 OR DBP<60 OR PULSE </= 60 Levothyroxine Sodium 25 Mcg Tablet 25 Mcg PO DAILY Aspirin EC (Aspirin) 81 Mg Tablet.dr 81 Mg PO DAILY Atorvastatin Calcium 80 Mg Tablet 80 Mg PO DAILY Furosemide 40 Mg Tablet 40 Mg PO BID Wellbutrin Xl (Bupropion HCl) 150 Mg Tab.er.24h 150 Mg PO DAILY Humalog (Insulin Lispro) 100 Unit/1 Ml Vial PER PUMP Sertraline HCl 100 Mg Tablet 200 Mg PO DAILY TAKES 2 (100MG) TABLETS Instructions to patient/family Please see electronic discharge instructions given to patient. 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
[2018-07-04] MEDS ORDERED: TAMS0.4C98 PO (15:03)
[2018-07-04] MEDS ORDERED: BETH25TA11 PO (15:06)
--- NOTE | 2018-07-04 15:49 | NUR ---
provided prayer and Communion.
[2018-07-04] MEDS ORDERED: BETHANECHOL 25 MG (URECHOLINE) TAB PO SCH (16:00)
--- NOTE | 2018-07-04 17:09 | NUR ---
PATIENT WANTED TO WAIT TO TAKE HIS FISH OIL AND LASIX UNTIL AFTER HE RETURNED HOME THIS EVENING.
[2018-07-04 17:15] VITALS: BP 124/64
[2018-07-05] MEDS ORDERED: DOCUSATE SODIUM 200 MG PO SCH (09:00)
[2018-07-05] MEDS ORDERED: DOCUSATE SODIUM 100 MG (COLACE) CAP PO SCH (09:00)
== END 2018-07-04 17:15 | disposition home or self-care (01) | DRG 291 ==
LOC: EDUNIT# 09:09 → ER 09:11 → UNDOADMIN 13:40 → 4TH 13:40
PROVIDERS: ADMIT Family Medicine; ATTEND Family Medicine
DX: I13.0 Hypertensive heart and chronic kidney disease with heart failure and stage 1 through stage 4 chronic kidney disease, or unspecified chronic kidney disease (principal); I50.23 Acute on chronic systolic (congestive) heart failure; N18.3 Chronic kidney disease, stage 3 (moderate); J90 Pleural effusion, not elsewhere classified; R07.89 Other chest pain; I25.10 Atherosclerotic heart disease of native coronary artery without angina pectoris; E10.51 Type 1 diabetes mellitus with diabetic peripheral angiopathy without gangrene; E10.40 Type 1 diabetes mellitus with diabetic neuropathy, unspecified; E03.9 Hypothyroidism, unspecified; E21.5 Disorder of parathyroid gland, unspecified; E78.00 Pure hypercholesterolemia, unspecified; F41.9 Anxiety disorder, unspecified; F32.9 Major depressive disorder, single episode, unspecified; D64.9 Anemia, unspecified; I25.5 Ischemic cardiomyopathy; N31.9 Neuromuscular dysfunction of bladder, unspecified; R33.8 Other retention of urine; I25.2 Old myocardial infarction; Z95.1 Presence of aortocoronary bypass graft; Z89.511 Acquired absence of right leg below knee; Z79.4 Long term (current) use of insulin; Z79.82 Long term (current) use of aspirin; Z86.718 Personal history of other venous thrombosis and embolism
CPT/HCPCS: 36415; 71046; 71275; 78452; 80048; 80053; 82962; 83605; 83735; 83880; 84484; 85007; 85025; 85027; 85379; 85610; 85730; 86141; 87040; 87804; 93005; 93017; 93306; 94760; 96372; 96374

== ENCOUNTER 2018-07-09 09:53 | Emergency (ER) | payer MEDICARE ==
[~2018-07-09] VITALS: Ht 177.8 cm; Wt 77.1 kg
[~2018-07-09 09:53] MED LIST changes: -CATHETER FLUSH 10 ML SYR IV PRN; -CEFD300C3 PO; -RT-ALBUINH IH
[2018-07-09] MEDS ORDERED: NS IV 1000 ML 1,000 ML IV SCH (10:49)
--- NOTE | 2018-07-09 11:05 | ED Cough/URI ---
General Stated Complaint: COUGH;UPPER CHEST PRESSURE Source: patient Exam Limitations: no limitations History of Present Illness Date Seen by Provider: Jul 09, 2018 Time Seen by Provider: 10:29 Initial Comments Patient presents to ER by private conveyance with chief complaint of a productive cough with some chills but no objective fever. He did go to the doctor's office last week and they put him on a Z-Tyler Monday. His symptoms began about 5 days ago. He does not feel better. He does have a history of diabetes on insulin pump. No blood in this sputum. No nausea chest pain shortness of breath. Does not use oxygen at baseline. No history of COPD or asthma. Allergies and Home Medications Allergies Coded Allergies: No Known Drug Allergies (Unverified , 07/01/18) Home Medications Acetaminophen 325 Mg Tablet, 650 MG PO Q4H PRN for PAIN-MILD, (Reported) Ascorbic Acid 500 Mg Tablet, 500 MG PO DAILY, (Reported) Aspirin 81 Mg Tablet.dr, 81 MG PO DAILY, (Reported) Atorvastatin Calcium 80 Mg Tablet, 80 MG PO DAILY, (Reported) Bethanechol Chloride 25 Mg Tablet, 25 MG PO ACHS Prescribed by: JUAQUIN ANDERSON on 07/04/18 1506 Bisacodyl 10 Mg Supp.rect, 10 MG RC DAILY PRN for CONSTIPATION-4TH LINE, ( Reported) Bupropion HCl 150 Mg Tab.er.24h, 150 MG PO DAILY, (Reported) Carvedilol 3.125 Mg Tablet, 3.125 MG PO BID, (Reported) HOLD IF SBP<100 OR DBP<60 OR PULSE </= 60 Cholecalciferol (Vitamin D3) 2,000 Unit Capsule, 2,000 UNIT PO DAILY, (Reported) Docusate Sodium 100 Mg Capsule, 200 MG PO DAILY, (Reported) Furosemide 40 Mg Tablet, 40 MG PO BID, (Reported) Insulin Lispro 100 Unit/1 Ml Vial, PER PUMP, (Reported) Levothyroxine Sodium 25 Mcg Tablet, 25 MCG PO DAILY, (Reported) Levothyroxine Sodium 150 Mcg Tablet, 150 MCG PO DAILY, (Reported) TAKES ALONG WITH 25MCG TABLET Lisinopril 5 Mg Tablet, 5 MG PO DAILY, (Reported) HOLD IF SBP<100 OR DBP<60 Magnesium Hydroxide 400 Mg/5 Ml Oral.susp, 30 ML PO DAILY PRN for CONSTIPATION- 7TH LINE, (Reported) Melatonin 5 Mg Capsule, 5 MG PO HS, (Reported) Multivit-Min/FA/Lycopene/Lut 1 Each Tablet, 1 TAB PO DAILY, (Reported) Na Phos,M-B/Na Phos,Di-Ba 133 Ml Enema, 133 ML RC DAILY PRN for CONSTIPATION, ( Reported) Nitroglycerin 0.4 Mg Tab.subl, 0.4 MG SL UD PRN for CHEST PAIN, (Reported) [place] 3 Polyunsat Fatty Acids 1,000 Mg Cap, 1,000 MG PO QID, (Reported) Pantoprazole Sodium 40 Mg Tablet.dr, 40 MG PO DAILY, (Reported) Pregabalin 200 Mg Capsule, 200 MG PO BID, (Reported) Sertraline HCl 100 Mg Tablet, 200 MG PO DAILY, (Reported) TAKES 2 (100MG) TABLETS Tamsulosin HCl 0.4 Mg Cap, 0.4 MG PO DAILY, (Reported) Tamsulosin HCl 0.4 Mg Cap, 0.4 MG PO DAILY Prescribed by: JUAQUIN ANDERSON on 07/04/18 9497 Patient Home Medication List Home Medication List Reviewed: Yes Review of Systems Review of Systems Constitutional: chills; No fever; malaise EENTM: No ear discharge, No hearing loss, No ear pain Respiratory: cough, phlegm; No short of breath, No wheezing Cardiovascular: No chest pain, No edema Gastrointestinal: No abdominal pain, No constipation, No diarrhea Genitourinary: No discharge, No dysuria Musculoskeletal: No back pain, No joint pain Past Kvplqse-Wlvvzb-Hdllxl Hx Patient Social History Alcohol Use: Denies Use Recreational Drug Use: No Smoking Status: Current Someday Smoker Type Used: Pipe Recent Foreign Travel: No Contact w/Someone Who Travel: No Recent Hopitalizations: Yes ([facility] ICU-3WEEKS AGO) Immunizations Up To Date Tetanus Booster (TDap): More than 5yrs PED Vaccines UTD: No Date of Pneumonia Vaccine: Apr 03, 2018 Date of Influenza Vaccine: Jan 01, 2018 Seasonal Allergies Seasonal Allergies: No Past Medical History Surgeries: Yes (RIGHT LOWER LEG AMPUTATION) Amputation, Cardiac, CABG, Orthopedic, Vascular Surgery Respiratory: No Currently Using CPAP: No Currently Using BIPAP: No Cardiac: Yes (CABG X4 1997, MA 1997, DVT R THIGH 1997) Coronary Artery Disease, Heart Attack, High Cholesterol, Hypertension, Peripheral Vascular Neurological: Yes Neuropathy Reproductive Disorders: No Sexually Transmitted Disease: No HIV/AIDS: No Genitourinary: Yes (GFR 40-45%) Renal Failure Gastrointestinal: No Musculoskeletal: Yes (RIGHT BELOW KNEE AMP 17) Amputee, Fractures Endocrine: Yes Parathyroid Disease, Diabetes, Insulin dep, Hypothyroidsim HEENT: No Loss of Vision: Denies Hearing Impairment: Denies Cancer: No Psychosocial: Yes Anxiety, Depression Integumentary: No Blood Disorders: Yes (ANEMIA ) Adverse Reaction/Blood Tranf: No Family Medical History Cardiovascular disease 19 MOTHER Heart Disease, Cancer, Diabetes Physical Exam Vital Signs - First Documented 07/09/18 10:43 Temp 97.0 Pulse 64 Resp 20 B/P (MAP) 110/56 (74) Pulse Ox 97 O2 Delivery Room Air Capillary Refill : Height: 5'10.00" Weight: 162lbs. 0.0oz. [id number]; 24.0 BMI Method:Stated General Appearance: WD/WN, no apparent distress Eyes: Bilateral Eye Normal Inspection, Bilateral Eye PERRL, Bilateral Eye EOMI HEENT: PERRL/EOMI, normal ENT inspection, pharynx normal Neck: non-tender, full range of motion, supple Respiratory: chest non-tender, no respiratory distress, no accessory muscle use , rhonchi (left base) Cardiovascular: normal peripheral pulses, regular rate, rhythm Gastrointestinal: normal bowel sounds, non tender, soft Progress/Results/Core Measures Suspected Sepsis SIRS Temperature: Pulse: Respiratory Rate: Laboratory Tests 07/09/18 10:49: White Blood Count 5.8 Blood Pressure / Mean: Laboratory Tests 07/09/18 10:49: Creatinine 1.46H, Platelet Count 165, Total Bilirubin 0.4 Results/Orders Lab Results Laboratory Tests Test 07/09/18 10:49 07/09/18 10:58 Range/Units White Blood Count 5.8 4.3-11.0 10^3/uL Red Blood Count 3.59 L 4.35-5.85 10^6/uL Hemoglobin 10.6 L 13.3-17.7 G/DL Hematocrit 33 L 40-54 % Mean Corpuscular Volume 93 80-99 FL Mean Corpuscular Hemoglobin 30 25-34 PG Mean Corpuscular Hemoglobin Concent 32 32-36 G/DL Red Cell Distribution Width 15.2 H 10.0-14.5 % Platelet Count 165 130-400 10^3/uL Mean Platelet Volume 10.5 H 7.4-10.4 FL Neutrophils (%) (Auto) 80 H 42-75 % Lymphocytes (%) (Auto) 9 L 12-44 % Monocytes (%) (Auto) 8 0-12 % Eosinophils (%) (Auto) 3 0-10 % Basophils (%) (Auto) 0 0-10 % Neutrophils # (Auto) 4.6 1.8-7.8 X 10^3 Lymphocytes # (Auto) 0.5 L 1.0-4.0 X 10^3 Monocytes # (Auto) 0.5 0.0-1.0 X 10^3 Eosinophils # (Auto) 0.2 0.0-0.3 10^3/uL Basophils # (Auto) 0.0 0.0-0.1 10^3/uL Sodium Level 141 135-145 MMOL/L Potassium Level 4.0 3.6-5.0 MMOL/L Chloride Level 99 98-107 MMOL/L Carbon Dioxide Level 34 H 21-32 MMOL/L Anion Gap 8 5-14 MMOL/L Blood Urea Nitrogen 19 H 7-18 MG/DL Creatinine 1.46 H 0.60-1.30 MG/DL Estimat Glomerular Filtration Rate 49 BUN/Creatinine Ratio 13 Glucose Level 259 H 70-105 MG/DL Calcium Level 9.3 8.5-10.1 MG/DL Corrected Calcium 9.5 8.5-10.1 MG/DL Total Bilirubin 0.4 0.1-1.0 MG/DL Aspartate Amino Transf (AST/SGOT) 35 H 5-34 U/L Alanine Aminotransferase (ALT/SGPT) 91 H 0-55 U/L Alkaline Phosphatase 91 40-136 U/L C-Reactive Protein High Sensitivity 1.81 H 0.00-0.50 MG/DL B-Type Natriuretic Peptide 897.8 H <100.0 PG/ML Total Protein 6.3 L 6.4-8.2 GM/DL Albumin 3.7 3.2-4.5 GM/DL Glucometer 263 H 70-110 MG/DL Micro Results Microbiology 07/09/18 Influenza Types A,B Antigen (MERLENE) - Final, Complete My Orders Orders - VALENTINE THOMASON Chest Pa/Lat (2 View) (07/09/18 10:49) Cbc With Automated Diff (07/09/18 10:49) Comprehensive Metabolic Panel (07/09/18 10:49) Hs C Reactive Protein (07/09/18 10:49) Influenza A And B Antigens (07/09/18 10:49) Saline Lock/Iv-Start (07/09/18 10:49) Ns Iv 1000 Ml (Sodium Chloride 0.9%) (07/09/18 10:49) Albuterol/Ipra Inhalation Soln (Duoneb I (07/09/18 11:15) Svn Small Volume Nebulizer (07/09/18 11:05) BNP (07/09/18 11:38) Medications Given in ED Current Medications Medications Dose Ordered Sig/Isaias Route Start Time Stop Time Status Last Admin Dose Admin Albuterol/ Ipratropium 3 ml ONCE ONCE INH 07/09/18 11:15 07/09/18 11:16 DC 07/09/18 11:37 3 ML Vital Signs/I&O 07/09/18 07/09/18 07/09/18 10:43 10:43 11:37 Temp 97.0 Pulse 64 Resp 20 B/P (MAP) 110/56 (74) Pulse Ox 97 99 O2 Delivery Room Air Room Air Room Air Capillary Refill : Progress Note #1: Time: 11:04 Progress Note Plan to obtain some basic labs and chest x-ray. Viral versus pneumonia. Trial a DuoNeb and see if that gives him some relief of symptoms. Progress Note #2: Time: 12:20 Progress Note The patient says he felt a little better and with his cough after the DuoNeb breathing treatment. He has a overt infiltrate on the chest x-ray. He has not had adequate do antibiotic outpatient therapy yet. We outlined outpatient therapy with follow-up later in the week with primary care versus observation stay and as the patient's vital signs are fine and he is feeling comfortable he would like to try outpatient. Plan to give him a gram or Rocephin for him on cefdinir and he can finish up the azithromycin. Diagnostic Imaging Diagonstic Imaging: Xray Plain Films/CT/US/NM/MRI: chest (2v) Comments NAME: [facility] REC#: [id number] PHYSICIAN: VALENTINE THOMASON MD CC: FUENTES MARTINEZ MD; VALENTINE THOMASON Page 2 of 2 RADIOLOGY REPORT [facility] [place], [place] CC: FUENTES MARTINEZ MD; VALENTINE THOMASON Page 1 of 2 RADIOLOGY REPORT NAME: [facility] REC#: [id number] PT STATUS: REG ER : 1955 PHYSICIAN: VALENTINE THOMASON MD ADMIT DATE: 07/09/18/ER Signed Date of Exam: 07/09/18 CHEST PA/LAT (2 VIEW) EXAMINATION: CHEST (PA AND LATERAL). CLINICAL INDICATION: 63-year-old male, chest pain and cough. COMPARISON: July 02, 2018. FINDINGS: There are median sternotomy wires. There are mediastinal surgical clips. Stable overall appearance of the cardiomediastinal silhouette. There is no identified pneumothorax. There is a small right pleural effusion. There is nonspecific right basilar airspace consolidation. There is improved aeration of the left lung base since the comparison exam. There are streaky opacities in the left midlung which appear to be mildly increased. IMPRESSION: 1. Small right pleural effusion and nonspecific right basilar airspace consolidation which is perhaps slightly improved since the comparison exam. 2. Improved left lower lobe airspace consolidation. 3. Mild streaky opacities in the left midlung which do appear more prominent since the comparison exam. Dictated by: Dictated on workstation # [id number] Dict: 07/09/18 1125 Trans: 07/09/18 1150 Interpreted by: FUENTES MARTINEZ MD Electronically signed by: FUENTES MARTINEZ MD 07/09/18 1150 Reviewed: Reviewed by Me Departure Impression Primary Impression: Pneumonia Qualified Codes: J18.1 - Lobar pneumonia, unspecified organism Disposition: 01 HOME, SELF-CARE Condition: Stable Departure-Patient Inst. Decision time for Depature: 12:22 Referrals: SKYLAR KAPOOR MD (PCP/Family) Primary Care Physician Patient Instructions: Pneumonia, Adult (DC) Add. Discharge Instructions: Please follow-up with Dr. Kaopor later in the week by calling for an appointment today. Use a humidifier and vapor rubs to help with your breathing. 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 Return to the ER having difficulty breathing, chest pain or other worrisome symptoms. Scripts Cefdinir (Cefdinir) 300 Mg Capsule 300 MG PO BID for 10 Days, #20 CAP 0 Refills Prov: VALENTINE THOMASON 07/09/18 Albuterol Sulfate (PROAIR HFA) 1 Puff Puff 2 PUFF IH Q4H PRN for WHEEZING, #1 EA 0 Refills 1 PUFF = 90 MCG Prov: VALENTINE THOMASON 07/09/18 VALENTINE THOMASON Jul 09, 2018 11:05
[2018-07-09 11:08] LABS: BASOPHILS % (AUTO) 0 % (0-10); EOSINOPHILS # (AUTO) 0.2 10^3/uL (0.0-0.3); EOSINOPHILS % (AUTO) 3 % (0-10); HEMATOCRIT 33 % (40-54); HEMOGLOBIN 10.6 G/DL (13.3-17.7); LYMPHOCYTES # (AUTO) 0.5 X 10^3 (1.0-4.0); LYMPHOCYTES % (AUTO) 9 % (12-44); MEAN CORPUSCULAR HEMOGLOBIN 30 PG (25-34); MEAN CORPUSCULAR HGB CONC 32 G/DL (32-36); MEAN CORPUSCULAR VOLUME 93 FL (80-99); MEAN PLATELET VOLUME 10.5 FL (7.4-10.4); MONOCYTES # (AUTO) 0.5 X 10^3 (0.0-1.0); MONOCYTES % (AUTO) 8 % (0-12); NEUTROPHILS # (AUTO) 4.6 X 10^3 (1.8-7.8); NEUTROPHILS % (AUTO) 80 % (42-75); PLATELET COUNT 165 10^3/uL (130-400); RED CELL DISTRIBUTION WIDTH 15.2 % (10.0-14.5); WHITE BLOOD COUNT 5.8 10^3/uL (4.3-11.0)
[2018-07-09] MEDS ORDERED: RT-ALBUTEROL/IPRATROPIUM 3 ML (DUONEB) VIAL INH ONE (11:15)
[2018-07-09 11:29] LABS: ALBUMIN 3.7 GM/DL (3.2-4.5); BILIRUBIN,TOTAL 0.4 MG/DL (0.1-1.0); CALCIUM 9.3 MG/DL (8.5-10.1); CREATININE SERUM 1.46 MG/DL (0.60-1.30); TOTAL PROTEIN 6.3 GM/DL (6.4-8.2)
--- NOTE | 2018-07-09 11:29 | Diagnostic Imaging Report ---
EXAMINATION: CHEST (PA AND LATERAL). CLINICAL INDICATION: 63-year-old male, chest pain and cough. COMPARISON: July 02, 2018. FINDINGS: There are median sternotomy wires. There are mediastinal surgical clips. Stable overall appearance of the cardiomediastinal silhouette. There is no identified pneumothorax. There is a small right pleural effusion. There is nonspecific right basilar airspace consolidation. There is improved aeration of the left lung base since the comparison exam. There are streaky opacities in the left midlung which appear to be mildly increased. IMPRESSION: 1. Small right pleural effusion and nonspecific right basilar airspace consolidation which is perhaps slightly improved since the comparison exam. 2. Improved left lower lobe airspace consolidation. 3. Mild streaky opacities in the left midlung which do appear more prominent since the comparison exam. Dictated by: Dictated on workstation # [id number]
[2018-07-09] MEDS ORDERED: CEFD300C3 PO (12:25)
[2018-07-09] MEDS ORDERED: RT-ALBUINH IH (12:25)
[2018-07-09] MEDS ORDERED: cefTRIAXone FOR IV USE 1,000 MG in WATER (STERILE) FOR INJECTION 10 ML IV ONE (12:30)
[2018-07-09 12:34] VITALS: BP 122/62
== END 2018-07-09 12:34 | disposition home or self-care (01) ==
LOC: EDUNIT# 09:53 → ER 09:54
DX: J18.9 Pneumonia, unspecified organism (principal); I25.10 Atherosclerotic heart disease of native coronary artery without angina pectoris; I25.2 Old myocardial infarction; E78.00 Pure hypercholesterolemia, unspecified; I10 Essential (primary) hypertension; E03.9 Hypothyroidism, unspecified; F41.9 Anxiety disorder, unspecified; F32.9 Major depressive disorder, single episode, unspecified; D64.9 Anemia, unspecified; E11.40 Type 2 diabetes mellitus with diabetic neuropathy, unspecified; E11.51 Type 2 diabetes mellitus with diabetic peripheral angiopathy without gangrene; I73.9 Peripheral vascular disease, unspecified; F17.290 Nicotine dependence, other tobacco product, uncomplicated; Z86.718 Personal history of other venous thrombosis and embolism; Z82.49 Family history of ischemic heart disease and other diseases of the circulatory system; Z79.82 Long term (current) use of aspirin; Z79.4 Long term (current) use of insulin; Z95.1 Presence of aortocoronary bypass graft; Z89.511 Acquired absence of right leg below knee
CPT/HCPCS: 36415; 71046; 80053; 82962; 83880; 85025; 86141; 87804; 94640

== ENCOUNTER → 2018-07-09 | Outpatient (CLI) | payer MEDICARE ==
[~2018-07-09] MED LIST changes: +ACET325T38 PO; +ASCO500T6 PO; +ASPI-983 PO; +ATOR80TA76 PO; +BETH25TA11 PO; +BISA10SU6 RC; +CARV3.122 PO; +CATHETER FLUSH 10 ML SYR IV PRN; +CEFD300C3 PO; +CHOL20003 PO; +DOCU-163 PO; +HUMALOG; +INSU100I10 SQ; +LEVO150T6 PO; +LEVO25TA5 PO; +LISI-556 PO; +MAGN400O7 PO; +MELA5CAP PO; +MULT-1029 PO; +NA P133E22 RC; +NITR0.4T42 SL; +PANT40TA3 PO; +PREG200C PO; +RT-ALBUINH IH; +TAMS0.4C98 PO
== END ==
LOC: CARD 12:15
PROVIDERS: ATTEND Internal Medicine Cardiovascular Disease
DX: I50.9 Heart failure, unspecified (principal); R07.89 Other chest pain; R06.02 Shortness of breath
CPT/HCPCS: 78452; 93017

== ENCOUNTER 2019-03-04 14:48 | Outpatient (RCR) | payer MEDICARE ==
[2019-02-20 14:51] LABS: BASOPHILS % (AUTO) 0 % (0-10); EOSINOPHILS # (AUTO) 0.2 10^3/uL (0.0-0.3); EOSINOPHILS % (AUTO) 3 % (0-10); HEMATOCRIT 33 % (40-54); HEMOGLOBIN 11.4 G/DL (13.3-17.7); LYMPHOCYTES # (AUTO) 1.1 X 10^3 (1.0-4.0); LYMPHOCYTES % (AUTO) 20 % (12-44); MEAN CORPUSCULAR HEMOGLOBIN 30 PG (25-34); MEAN CORPUSCULAR HGB CONC 35 G/DL (32-36); MEAN CORPUSCULAR VOLUME 86 FL (80-99); MEAN PLATELET VOLUME 9.8 FL (7.4-10.4); MONOCYTES # (AUTO) 0.4 X 10^3 (0.0-1.0); MONOCYTES % (AUTO) 8 % (0-12); NEUTROPHILS # (AUTO) 3.6 X 10^3 (1.8-7.8); NEUTROPHILS % (AUTO) 69 % (42-75); PLATELET COUNT 178 10^3/uL (130-400); RED CELL DISTRIBUTION WIDTH 13.9 % (10.0-14.5); WHITE BLOOD COUNT 5.3 10^3/uL (4.3-11.0)
[2019-02-20 15:10] LABS: ALBUMIN 3.9 GM/DL (3.2-4.5); BILIRUBIN,TOTAL 0.3 MG/DL (0.1-1.0); CALCIUM 9.2 MG/DL (8.5-10.1); CREATININE SERUM 1.67 MG/DL (0.60-1.30); POTASSIUM 4.2 MMOL/L (3.6-5.0); TOTAL PROTEIN 6.5 GM/DL (6.4-8.2)
[~2019-03-04 14:48] MED LIST changes: -BISA10SU6 RC; +BISA10SU8 RC; +CEFD300C3 PO; +RT-ALBUINH IH; -TAMS0.4C98 PO; +TMSL.4C PO
== END 2019-05-21 | disposition home or self-care (01) ==
LOC: ONC 14:48
PROVIDERS: ATTEND Internal Medicine Hematology & Oncology
DX: D47.2 Monoclonal gammopathy (principal); N18.3 Chronic kidney disease, stage 3 (moderate); E11.22 Type 2 diabetes mellitus with diabetic chronic kidney disease; E78.00 Pure hypercholesterolemia, unspecified; E03.9 Hypothyroidism, unspecified; Z89.511 Acquired absence of right leg below knee; I25.10 Atherosclerotic heart disease of native coronary artery without angina pectoris; I25.2 Old myocardial infarction; Z79.899 Other long term (current) drug therapy; Z79.4 Long term (current) use of insulin
CPT/HCPCS: 36415; 80053; 82232; 82784; 83615; 83883; 84155; 84165; 85025; 99213

== ENCOUNTER 2019-09-16 13:16 | Emergency (ER) | payer MEDICARE ==
[~2019-09-16] VITALS: Ht 177 cm; Wt 82.0 kg
[~2019-09-16 13:16] MED LIST changes: +ASCO500T17 PO; -ASCO500T6 PO
--- NOTE | 2019-09-16 13:38 | ED Lower Extremity ---
General Chief Complaint: Cough/Cold/Flu Symptoms Stated Complaint: R LEG PAIN Source: patient Exam Limitations: no limitations History of Present Illness Date Seen by Provider: Sep 16, 2019 Time Seen by Provider: 13:36 Initial Comments To ER with reports of persistent pain to the very distal aspect of the right stump (below the knee amputation) since last night. No known injury. The amputation occurred in the remote past, nothing recent. No fever no chills no injury. He went to bed and was awakened by the severe pain later in the night. The pain is worsened by movement and palpating the area Onset: just prior to arrival Severity: moderate Pain/Injury Location: right leg Method of Injury: unknown Modifying Factors: Worse With Movement Allergies and Home Medications Allergies Coded Allergies: No Known Drug Allergies (Unverified , 07/01/18) Home Medications Acetaminophen 325 Mg Tablet, 650 MG PO Q4H PRN for PAIN-MILD, (Reported) Albuterol Sulfate 1 Puff Puff, 2 PUFF IH Q4H PRN for WHEEZING 1 PUFF = 90 MCG Prescribed by: VALENTINE THOMASON on 07/09/18 1225 Ascorbic Acid 500 Mg Tablet, 500 MG PO DAILY, (Reported) Aspirin 81 Mg Tablet.dr, 81 MG PO DAILY, (Reported) Atorvastatin Calcium 80 Mg Tablet, 80 MG PO DAILY, (Reported) Bethanechol Chloride 25 Mg Tablet, 25 MG PO ACHS Prescribed by: JUAQUIN ANDERSON on 07/04/18 1506 Bisacodyl 10 Mg Supp.rect, 10 MG RC DAILY PRN for CONSTIPATION-4TH LINE, (Reported) Bupropion HCl 150 Mg Tab.er.24h, 150 MG PO DAILY, (Reported) Carvedilol 3.125 Mg Tablet, 3.125 MG PO BID, (Reported) HOLD IF SBP<100 OR DBP<60 OR PULSE </= 60 Cefdinir 300 Mg Capsule, 300 MG PO BID Prescribed by: VALENTINE THOMASON on 07/09/18 1225 Cholecalciferol (Vitamin D3) 2,000 Unit Capsule, 2,000 UNIT PO DAILY, (Reported) Docusate Sodium 100 Mg Capsule, 200 MG PO DAILY, (Reported) Furosemide 40 Mg Tablet, 40 MG PO BID, (Reported) Insulin Lispro 100 Unit/1 Ml Vial, PER PUMP, (Reported) Levothyroxine Sodium 25 Mcg Tablet, 25 MCG PO DAILY, (Reported) Levothyroxine Sodium 150 Mcg Tablet, 150 MCG PO DAILY, (Reported) TAKES ALONG WITH 25MCG TABLET Lisinopril 5 Mg Tablet, 5 MG PO DAILY, (Reported) HOLD IF SBP<100 OR DBP<60 Magnesium Hydroxide 400 Mg/5 Ml Oral.susp, 30 ML PO DAILY PRN for CONSTIPATION- 7TH LINE, (Reported) Melatonin 5 Mg Capsule, 5 MG PO HS, (Reported) Multivit-Min/FA/Lycopene/Lut 1 Each Tablet, 1 TAB PO DAILY, (Reported) Na Phos,M-B/Na Phos,Di-Ba 133 Ml Enema, 133 ML RC DAILY PRN for CONSTIPATION, (Reported) Nitroglycerin 0.4 Mg Tab.subl, 0.4 MG SL UD PRN for CHEST PAIN, (Reported) [place] 3 Polyunsat Fatty Acids 1,000 Mg Cap, 1,000 MG PO QID, (Reported) Pantoprazole Sodium 40 Mg Tablet.dr, 40 MG PO DAILY, (Reported) Pregabalin 200 Mg Capsule, 200 MG PO BID, (Reported) Sertraline HCl 100 Mg Tablet, 200 MG PO DAILY, (Reported) TAKES 2 (100MG) TABLETS Tamsulosin HCl 0.4 Mg Cap, 0.4 MG PO DAILY, (Reported) Tamsulosin HCl 0.4 Mg Cap, 0.4 MG PO DAILY Prescribed by: JUAQUIN ANDERSON on 07/04/18 1503 Patient Home Medication List Home Medication List Reviewed: Yes Review of Systems Constitutional: see HPI EENTM: see HPI Respiratory: no symptoms reported Cardiovascular: no symptoms reported Genitourinary: no symptoms reported Musculoskeletal: see HPI Skin: no symptoms reported Psychiatric/Neurological: No Symptoms Reported Past Gergonm-Ukqlcz-Ameldu Hx Patient Social History Alcohol Use: Denies Use Recreational Drug Use: No Smoking Status: Never a Smoker Type Used: Pipe 2nd Hand Smoke Exposure: No Recent Hopitalizations: No Physical Abuse: No Sexual Abuse: No Mistreated: No Fear: No Immunizations Up To Date Tetanus Booster (TDap): More than 5yrs PED Vaccines UTD: No Date of Pneumonia Vaccine: Apr 03, 2018 Date of Influenza Vaccine: Jan 01, 2018 Seasonal Allergies Seasonal Allergies: No Past Medical History Surgeries: Yes (RIGHT LOWER LEG AMPUTATION) Amputation, Cardiac, CABG, Orthopedic, Vascular Surgery Respiratory: No Currently Using CPAP: No Currently Using BIPAP: No Cardiac: Yes (CABG X4 1997, MT 1997, DVT R THIGH 1997) Coronary Artery Disease, Heart Attack, High Cholesterol, Hypertension, Peripheral Vascular Neurological: Yes Neuropathy Reproductive Disorders: No Sexually Transmitted Disease: No HIV/AIDS: No Genitourinary: Yes (GFR 40-45%) Renal Failure Gastrointestinal: No Musculoskeletal: Yes (RIGHT BELOW KNEE AMP 17) Amputee, Fractures Endocrine: Yes Parathyroid Disease, Diabetes, Insulin dep, Hypothyroidsim HEENT: No Loss of Vision: Denies Hearing Impairment: Denies Cancer: No Psychosocial: Yes Anxiety, Depression Integumentary: No Blood Disorders: Yes (ANEMIA ) Adverse Reaction/Blood Tranf: No Family Medical History Cardiovascular disease 19 MOTHER Heart Disease, Cancer, Diabetes Physical Exam Vital Signs Vital Signs - First Documented 09/16/19 13:30 Temp 37.1 Pulse 71 Resp 16 B/P (MAP) 146/86 (106) Pulse Ox 100 O2 Delivery Room Air Capillary Refill : Height, Weight, BMI Height: 5'10.00" Weight: 170lbs. 0.0oz. 77.636790cd; 24.0 BMI Method:Stated General Appearance: WD/WN, no apparent distress Respiratory: no respiratory distress, no accessory muscle use Hips: bilateral hip non-tender, bilateral hip normal inspection, bilateral hip normal range of motion Legs: bilateral leg non-tender, bilateral leg normal inspection, bilateral leg normal range of motion; right leg other (tenderness to palpation to the distal aspect of the right below the knee amputation stump. The skin is a bit thickened and calloused but otherwise normal in appearance without evidence of ischemia. Warm to the touch dry and there are no open wounds.) Knees: bilateral knee non-tender, bilateral knee normal inspection, bilateral knee normal range of motion Ankles: left ankle non-tender, left ankle normal inspection Neurologic/Psychiatric: alert, normal mood/affect, oriented x 3 Skin: normal color, warm/dry Progress/Results/Core Measures Results/Orders Lab Results Laboratory Tests Test 09/16/19 13:45 Range/Units White Blood Count 6.7 4.3-11.0 10^3/uL Red Blood Count 4.07 L 4.35-5.85 10^6/uL Hemoglobin 12.3 L 13.3-17.7 G/DL Hematocrit 36 L 40-54 % Mean Corpuscular Volume 88 80-99 FL Mean Corpuscular Hemoglobin 30 25-34 PG Mean Corpuscular Hemoglobin Concent 35 32-36 G/DL Red Cell Distribution Width 13.5 10.0-14.5 % Platelet Count 129 L 130-400 10^3/uL Mean Platelet Volume 10.6 H 7.4-10.4 FL Neutrophils (%) (Auto) 73 42-75 % Lymphocytes (%) (Auto) 17 12-44 % Monocytes (%) (Auto) 8 0-12 % Eosinophils (%) (Auto) 2 0-10 % Basophils (%) (Auto) 0 0-10 % Neutrophils # (Auto) 4.9 1.8-7.8 X 10^3 Lymphocytes # (Auto) 1.2 1.0-4.0 X 10^3 Monocytes # (Auto) 0.5 0.0-1.0 X 10^3 Eosinophils # (Auto) 0.1 0.0-0.3 10^3/uL Basophils # (Auto) 0.0 0.0-0.1 10^3/uL Erythrocyte Sedimentation Rate 8 0-30 MM/HR Sodium Level 140 135-145 MMOL/L Potassium Level 4.3 3.6-5.0 MMOL/L Chloride Level 101 98-107 MMOL/L Carbon Dioxide Level 29 21-32 MMOL/L Anion Gap 10 5-14 MMOL/L Blood Urea Nitrogen 27 H 7-18 MG/DL Creatinine 1.64 H 0.60-1.30 MG/DL Estimat Glomerular Filtration Rate 42 BUN/Creatinine Ratio 16 Glucose Level 167 H 70-105 MG/DL Calcium Level 9.2 8.5-10.1 MG/DL Corrected Calcium 9.2 8.5-10.1 MG/DL Total Bilirubin 0.2 0.1-1.0 MG/DL Aspartate Amino Transf (AST/SGOT) 22 5-34 U/L Alanine Aminotransferase (ALT/SGPT) 16 0-55 U/L Alkaline Phosphatase 90 40-136 U/L C-Reactive Protein High Sensitivity 0.23 0.00-0.50 MG/DL Total Protein 6.9 6.4-8.2 GM/DL Albumin 4.0 3.2-4.5 GM/DL My Orders Orders - JAMIE VELAZQUEZ LUMBER STACKER Tibia/Fibula, Right, 2 Views (09/16/19 13:34) Cbc With Automated Diff (09/16/19 13:34) Comprehensive Metabolic Panel (09/16/19 13:34) Erythrocyte Sedimentation Rate (09/16/19 13:34) Hs C Reactive Protein (09/16/19 13:34) Hydrocodone/Apap 5/325 Tablet (Lortab 5 (09/16/19 13:45) Medications Given in ED Current Medications Medications Dose Ordered Sig/Isaias Route Start Time Stop Time Status Last Admin Dose Admin Acetaminophen/ Hydrocodone Bitart 1 tab ONCE ONCE PO 09/16/19 13:45 09/16/19 13:46 DC 09/16/19 13:48 1 TAB Vital Signs/I&O 09/16/19 13:30 Temp 37.1 Pulse 71 Resp 16 B/P (MAP) 146/86 (106) Pulse Ox 100 O2 Delivery Room Air Departure Impression Primary Impression: Pain of amputation stump of right lower extremity Disposition: HOME, SELF-CARE Condition: Stable Departure-Patient Inst. Decision time for Depature: 14:51 Referrals: SKYLAR GELLER MD (PCP/Family) Primary Care Physician Patient Instructions: Acute Pain, Adult Add. Discharge Instructions: . Follow-up with your regular doctor as soon as possible. Call today to make an appointment to be seen this week. Return to ER for any worsening symptoms or other concerns. Pain medication as directed. All discharge instructions reviewed with patient and/or family. Voiced understanding. JAMIE VELAZQUEZ LUMBER STACKER Sep 16, 2019 13:38
[2019-09-16] MEDS ORDERED: HYDROcodone/APAP 5 MG/325 MG (LORTAB) TAB PO ONE (13:45)
[2019-09-16 13:50] LABS: BASOPHILS % (AUTO) 0 % (0-10); EOSINOPHILS # (AUTO) 0.1 10^3/uL (0.0-0.3); EOSINOPHILS % (AUTO) 2 % (0-10); HEMATOCRIT 36 % (40-54); HEMOGLOBIN 12.3 G/DL (13.3-17.7); LYMPHOCYTES # (AUTO) 1.2 X 10^3 (1.0-4.0); LYMPHOCYTES % (AUTO) 17 % (12-44); MEAN CORPUSCULAR HEMOGLOBIN 30 PG (25-34); MEAN CORPUSCULAR HGB CONC 35 G/DL (32-36); MEAN CORPUSCULAR VOLUME 88 FL (80-99); MEAN PLATELET VOLUME 10.6 FL (7.4-10.4); MONOCYTES # (AUTO) 0.5 X 10^3 (0.0-1.0); MONOCYTES % (AUTO) 8 % (0-12); NEUTROPHILS # (AUTO) 4.9 X 10^3 (1.8-7.8); NEUTROPHILS % (AUTO) 73 % (42-75); PLATELET COUNT 129 10^3/uL (130-400); RED CELL DISTRIBUTION WIDTH 13.5 % (10.0-14.5); WHITE BLOOD COUNT 6.7 10^3/uL (4.3-11.0)
[2019-09-16 14:17] LABS: ERYTHROCYTE SEDIMENTATION RATE 8 MM/HR (0-30)
[2019-09-16 14:18] LABS: BILIRUBIN,TOTAL 0.2 MG/DL (0.1-1.0); CALCIUM 9.2 MG/DL (8.5-10.1); CREATININE SERUM 1.64 MG/DL (0.60-1.30); POTASSIUM 4.3 MMOL/L (3.6-5.0); TOTAL PROTEIN 6.9 GM/DL (6.4-8.2)
--- NOTE | 2019-09-16 14:39 | Diagnostic Imaging Report ---
INDICATION: Swelling and redness of the right lower extremity. Patient has undergone right bony amputation. TIME OF EXAM: 2:23 PM. FINDINGS: Post surgical changes of below knee amputation are noted. The resection margins at the tibia and fibula appear to be smooth. No periosteal reaction or bony destructive changes are seen. Overlying soft tissues are unremarkable. No soft tissue gas is identified. Surgical clips in the medial soft tissues of the distal thigh of the right lower extremity are noted. No acute fracture is seen. IMPRESSION: Post surgical changes. No acute feature is detected. Dictated by: Dictated on workstation # [id number]
[2019-09-16] MEDS ORDERED: HYDR-3870 PO (15:07)
[2019-09-16 15:25] VITALS: BP 146/86
--- OUTSIDE RECORDS SUMMARY | 2019-09-16 16:17 | XMS REPORT | Continuity of Care Document ---
Author Author TADEO REAL I Organization [facility] Address Unknown Phone Unavailable Care Team Providers Care Oil Dipper Name Role Phone [facility] Unavailable Unavailable Problems Problem Status Onset Date Classification Date Reported Comments Source Bipolar 2 disorder, major depressive episode Active 06/30/2017 09/16/2019 [facility], Monoclonal gammopathy Active 04/27/2017 09/16/2019 [facility], Diabetic retinopathy Active 06/03/2014 09/16/2019 [facility], Dysthymia Active 11/07/2013 09/16/2019 [facility] , HTN (hypertension) Active 04/08/2013 09/16/2019 [facility], HLD (hyperlipidemia) Active 04/08/2013 09/16/2019 [facility], CAD (coronary artery disease) Active 04/08/2013 09/16/2019 [facility], Hypothyroid Active 04/08/2013 09/16/2019 [facility], Diabetes Active 04/08/2013 09/16/2019 [facility] , Anemia Active 04/08/2013 09/16/2019 [facility] , MARGIE (generalized anxiety disorder) Active 04/08/2013 09/16/2019 [facility], Bilateral carotid artery stenosis Active 10/31/2011 09/16/2019 [facility], Thrombocytopenia Active 10/31/2011 09/16/2019 [facility], CKD (chronic kidney disease) stage 3, GFR 30-59 ml/min Active 11/02/2010 09/16/2019 [facility], MARGIE (generalized anxiety disorder) Active Diagnosis 0 09/16/2019 [facility], Bipolar 2 disorder, major depressive episode (HCC) Active Diagnosis 09/16/2019 [facility], Medications Medication Details Route Status Patient Instructions Ordering Provider Order Date Source metoprolol XL (TOPROL XL) 25 mg tablet Take 12.5 mg by mouth daily. Oral Active [facility], furosemide (LASIX) 40 mg tablet Take 40 mg by mouth every 48 hours. Oral Active [facility] , aspirin EC 81 mg tablet Take 8 1 mg by mouth daily. Oral Active [facility], fish oil /omega-3 fatty acids (SEA-OMEGA ) 340/1000 mg capsule Take 1 Cap by mouth daily. Ora l Active [facility], PV W-O NADIA/FERROUS FUMARATE/FA (M-VIT PO) Take by mouth. Oral Active [facility] , ASCORBATE CALCIUM (VITAMIN C PO) Take by mouth. Oral Active [facility], docusate (COLACE) 100 mg capsule Take 100 mg by mouth daily. Oral Active [facility] , ferrous sulfate 325 mg (65 mg iron) tablet Take 325 mg by mouth daily. Oral Active [facility] , insulin aspart (NOVOLOG) 100 unit/mL injection Inject 30 Units into area(s) as directed once. Indications: Uses 30 units daily with insulin pump Subcutaneous Active [facility] , insulin pump -ASPART- Patients Own by SubQ Pump route. SubQ Pump Active [facility] , HYDROcodone/acetaminophen(+) (LORTAB, NO RCO) 10/325 mg tablet Take 1 Tab by mouth every 6 hours as needed Oral Active [facility], levothyroxine (SYNTHROID) 200 mcg tablet Take 200 mcg by mouth daily. Oral Active [facility], insulin lispro(+) (HUMALOG) 100 unit/mL injection Inject 30 units maximum daily via pump. ICD-10: E10.8. Active [facility], atorvastatin (LIPITOR) 80 mg tablet 80 mg. Active [facility], nitroglycerin (NITROSTAT) 0.[address] 0.3 mg under tongue every 5 minutes as needed. Sublingual Active [facility], fentaNYL (DURAGESIC) 100 mcg/hr patch Apply 1 Patch to skin as directed every third day. Max Daily Amount: 1 Patch Active [facility], ARIPiprazole (ABILIFY) 5 mg tablet Take one tablet by mouth daily. Oral Active [facility] , buPROPion XL (WELLBUTRIN XL) 150 mg tablet Take one tablet by mouth every morning. Do not crush or chew. Oral Active [facility], busPIRone (BUSPAR) 15 mg tablet Take one tablet by mouth three times daily. Oral Active [facility] , sertraline (ZOLOFT) 100 mg tablet Take two tablets by mouth daily. Oral Active [facility] , pregabalin (LYRICA) 100 mg capsule Take one capsule by mouth twice daily. Oral Active [facility] , Allergies, Adverse Reactions, Alerts No Known Medication Allergies Immunizations Immunization Date Given Site Status Last Updated Comments Source Evaluated Forecast 09/16/2019 completed table.evaluated-forecast { border-collapse: collapse; font-family: [place], Helvetica, sans-serif; } .evaluated-forecast th, .evaluated-forecast td { paddinpx 8px; } .evaluated-forecast thead th { background: #[id number]; text-transform: lowercase; text-align: left; font-size: 15px; color: #fff; } .evaluated-forecast tr { border: 1px solid #[id number]; } .evaluated- forecast tbody tr { border-bottom: 1px solid #[id number]; } .evaluated- forecast tbody tr:nth-child(odd) { background: #[id number]; } .e valuated-forecast tbody th, .evaluated-forecast tbody tr td { border- right: 1px solid #[id number]; } .evaluated-forecast tfoot th { background: #[id number]; text-align: left; font-weight: normal; font-size: 10px; color: #fff; } .evaluated-forecast tr *:nth- child(3), .evaluated-forecast tr *:nth-child(4) { text-align: right; } ALLIE (Varivax) 1955 Tdap 1961 Zoster Subunit (Shingrix) 2004 PPSV23 (Pneumovax 23) 01/17/2023 Polio, UF TL32879-3^Too Old^LN MMR AD04852-5^Immune^LN Hib, UF LM09689-6^Too Old^LN Hep B, UF CJ25722-6^Too Old^LN Hep A, UF XI48956-9^Too Old^LN Rotavirus, UF RQ54142-4^Too Old^LN Influenza, UF SV00246-1^Complete^LN Meningococcal, UF KO02278-6^Too Old^LN HPV, UF RP27890-0^Too Old^LN LD3904, Influenza IIV4 PFree 12/26/2018 Left Posterolateral fat of Upper Arm Not Given PV5954, Influenza RIV4 PFree 01/17/2018 Left Deltoid Not Given [id number], PPSV23 (Pneumovax 23) 01/17/2018 Left Deltoid Not Given WL2901, Flu Vaccine =>6 Months Quadrivalent PF 01/03/2017 completed [facility], Influenza Vaccine Nasal 01/02/2016 completed [facility], Influenza IIV4 PFree 12/19/2015 Left Posterolateral fat of Upper Arm Not Given [id number], Flu Vaccine Quadrivalent =>3 Yo (Preservative Free) 12/19/2015 completed [facility], FLU VACCINE >3YO 12/18/2014 completed [facility], Pneumococcal Vaccine (23-Briana Adult) 03/06/2014 completed [facility], Flu Vaccine =>3 YO (Historical) 01/01/2013 completed [facility], Influenza TIV 01/13/2005 Not Given [id number], Influenza TIV 01/04/1999 Not Given [id number], Results No Data Provided for This Section Pathology Reports No Data Provided for This Section Diagnostic Reports No Data Provided for This Section Consultation Notes Results Value Date Source Progress Note Shireen Ortiz D O - 06/11/2019 1:00 PM CDT ATTCAROLYNI personally performed the noel portions of the E/M visit, discussed case with resident and concur with resident documentation of history, physical exam, assessment, and treatment plan unless otherwise noted.Staff name: Shireen Ortiz DO Date: 06/17/2019 06/17/2019 [facility]. Note Telephone Encounter - Carla Lundy - 05/27/2019 2:39 PM CSTLOV 11/22/18, upcoming appt 06/11/19; med refill completed per protocol. ECTOR EYEGLASS 05/27/2019 [facility]. Note Telephone Encounter - Carla Lundy - 04/23/2019 4:05 PM CSTLOV 11/22/18, upcoming appointment 06/11/19; med refill completed per protocol. ECTOR EYEGLASS 04/23/2019 [facility], Discharge Summaries No Data Provided for This Section History and Physicals No Data Provided for This Section Vital Signs Vital Sign Value Date Comments Source Systolic blood pressure 121 mm [Hg] 06/11/2019 [facility], Diastolic blood pressure 62 mm [Hg] 06/11/2019 [facility], Heart rate 77 /min 06/11/2019 [facility], Body height 177.8 cm 06/11/2019 [facility], Body weight 85.276 kg 06/11/2019 [facility], BMI 26.98 kg/m2 06/11/2019 [facility], Respiratory rate 16 /min 08/23/2017 [facility], Encounters Location Location Details Encounter Type Encounter Number Reason For Visit Attending Provider ADM Date DC Date Status Source [facility] OUTP ATIENT [id number] Jim MILLS 07/13/2017 07/14/2017 Discharged [facility], [facility] OUTP ATIENT [id number] Penelope GRIFFIN 08/23/2017 08/24/2017 Active [facility], MPAPSYCH OU TPATIENT [id number] Diego FALKNANDEZ 11/22/2018 11/22/2018 Discharged [facility], [facility] Refill [id number] Joann Mills MD 04/22/2019 [facility], [facility] Refill [id number] Joann Mills MD 05/27/2019 [facility], MPAPSYCH OU TPATIENT [id number] G BELINDA RIVAS 06/11/2019 06/11/2019 Active [facility], [facility] Office Visit [id number] Konstantin Rivas MD 0 06/17/2019 [facility] , MPAPSYCH O AASRIRADHA Cortez ANTA 12/12/2019 Active [facility], Procedures No Data Provided for This Section Plan of Care Plan of Care Date Source Health MaintenanceDue DateLast DoneComme ntsMEDICARE ANNUAL WELLNESS VISIT1954HIV VHDXGDENX79/10/1969DILATED EYE EXAM1972DTAP/TDAP VACCINES (1 - Tdap)1972FOOT EXAM1972HEPATITIS C NVWTBCBZF35/10/3150UJWWNGKZNKOF70/10/1972PHYSICAL (COMPREHENSIVE) EXAM1972COLORECTAL CANCER BJRVIYPNE32/10/2004SHINGLES RECOMBINANT VACCINE (1 of 2)03/12/20040701LAV3S84PNEUMONIA (PPSV23) VACCINE (1 of 1 - PPSV23)INFLUENZA [id number], 01/03/2017, 01/02/2016, Additional history exists 09/16/2019 [facility] , Social History No Data Provided for This Section Assessment and Plan No Data Provided for This Section Family History Value Date S ource Medical HistoryRelationNameCommentsOther FatherPTSD from WWII and KoreaAnxietyMaternal GrandmotherAnxietyMotherRelationNameStatusCommentsFatherMaternal GrandmotherMother 09/16/2019 [facility], Advance Directives Order Name Results Value Date Source Advance Directives Advance Dir ectives Documents on FileTypeDate RecordedPatien t RepresentativeExplanationAdvance Directive/DPOA 09/16/2019 [facility], Functional Status No Data Provided for This Section
--- OUTSIDE RECORDS SUMMARY | 2019-09-16 16:20 | XMS REPORT | Encounter Summary ---
Author Author [facility] Organization [facility] Address Unknown Phone Unavailable Care Team Providers Care Population Geneticist Name Role Phone Suzanna Velez MD Unavailable Merrick Resendez DO Unavailable Humza Kapoor MD PCP Shireen Ortiz DO Unavailable Fabrizio Simmons MD Unavailable Reason for Visit * Reason Comments Medication Refill Encounter Details Care Team Description Date Type Department Joann Cortez MD [address] [facility] [address] [place] [address] MARGIE (generalized anxiety disorder) 05/27/2019 Refill [facility] [address] [place] [address] Social History Date Tobacco Use Types Packs/Day Years Used Never Smoker Smokeless Tobacco: Never Used Drinks/Week oz/Week Comments Alcohol Use 0 Standard drinks or equivalent 0.0 No Sex Assigned at Date Recorded Not on file Industry Job Start Date Occupation Not on file Not on file Not on file Travel End Travel History Travel Start No recent travel history available. documented as of this encounter Miscellaneous Notes * Telephone Encounter - Carla Lundy - 05/27/2019 2:39 PM NANOTECHNOLOGIST RUBA 11/22/18, upcoming appt 3/10/20; med refill completed per protocol. TECHNOLOGIST documented in this encounter Plan of Treatment Not on filedocumented as of this encounter Visit Diagnoses Diagnosis MARGIE (generalized anxiety disorder) Generalized anxiety disorder documented in this encounter
--- OUTSIDE RECORDS SUMMARY | 2019-09-16 16:20 | XMS REPORT | Encounter Summary ---
Author Author [facility] Organization [facility] Address Unknown Phone Unavailable Care Team Providers Care Associate Field Service Engineer Name Role Phone Suzanna Velez MD Unavailable Merrick Resendez DO Unavailable Shireen Ortiz DO Unavailable Fabrizio Simmons MD Unavailable Mario Suggs MD PCP Reason for Visit * Reason Comments Medication Management Encounter Details Care Team Description Date Type Department Konstantin Rivas MD [address] [place] [address] MARGIE (generalized anxiety disorder) (Prim augusta Dx); Bipolar 2 disorder, major depressive episode (HCC) 06/11/2019 Office Visit [facility] [address] [place] [address] Social History Date Tobacco Use [...] of this encounter Last Filed Vital Signs Reading Time Taken Comments Vital Sign 121/62 06/11/2019 1:05 PM CDT Blood Pressure 77 06/11/2019 1:05 PM CDT Pulse - - Temperature - - Respiratory Rate - - Oxygen Saturation - - Inhaled Oxygen Concentration 85.3 kg (188 lb) 06/11/2019 1:05 PM CDT Weight 177.8 cm (5' 10") 06/11/2019 1:05 PM CDT Height 26.98 06/11/2019 1:05 PM CDT Body Mass Index documented in this encounter Progress Notes * Shireen Ortiz DO - 06/11/2019 1:00 PM CDT ATTESTATION I personally performed the noel portions of the E/M visit, discussed case with re sident and concur with resident documentation of history, physical exam, assessm ent, and treatment plan unless otherwise noted. Staff name: Shireen Ortiz DO Date: 06/17/2019 * Konstantin Rivas MD - 06/11/2019 1:00 PM CDT Subjective: Patient reports his mood is "good". Patient states that his mood has been good, but that he has felt "more lonely" since the start of this year. He states he is just adjusting to the idea that he may never be involved in a romantic relation ship again at his age. 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 Patient denies depressed mood, sleep disturbance, guilt, anhedonia, ap petite changes, low energy, or difficulty concentrating. Patient enjoys hanging out with a group of friends in the mornings and he has started a regular exercis e program. Denies and recent period of time with decreased need for sleep, grand iosity, expansive mood, or impulsivity. Patient denies SI, HI, or AVH. 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 Gastrointestinal: Negative for abdominal pain, nausea and vomiting. Psychiatric/Behavioral: Negative for hallucinations and suicidal ideas. Objective: ARIPiprazole (ABILIFY) 5 mg tablet Take one tablet by mouth daily. ASCORBATE CALCIUM (VITAMIN C PO) Take by mouth. aspirin EC 81 mg tablet Take 81 mg by mouth daily. atorvastatin (LIPITOR) 80 mg tablet 80 mg. buPROPion XL (WELLBUTRIN XL) 150 mg tablet Take one tablet by mouth every mo rning. Do not crush or chew. busPIRone (BUSPAR) 15 mg tablet Take one tablet by mouth three times daily. docusate (COLACE) 100 mg capsule Take 100 mg by mouth daily. fentaNYL (DURAGESIC) 100 mcg/hr patch Apply 1 Patch to skin as directed ever y third day. Max Daily Amount: 1 Patch [...] 100 unit/mL injection Inject 30 units maximum da micky via pump. ICD-10: E10.8. insulin pump -ASPART- Patients Own by [employer] Pump route. levothyroxine (SYNTHROID) 200 mcg tablet Take 200 mcg by mouth daily. metoprolol XL (TOPROL XL) 25 mg tablet Take 12.5 mg by mouth daily. nitroglycerin (NITROSTAT) 0.[address] 0.3 mg under tongue every 5 mi nutes as needed. pregabalin (LYRICA) 100 mg capsule Take one capsule by mouth twice daily. PV W-O NADIA/FERROUS FUMARATE/FA (M-VIT PO) Take by mouth. sertraline (ZOLOFT) 100 mg tablet Take two tablets by mouth daily. Vitals: 06/11/19 1305 BP: 121/62 Pulse: 77 Weight: 85.3 kg (188 lb) Body mass index is 26.98 kg/m. Physical Exam Psychiatric: Comments: General/Constitutional: appears stated age, dressed in own clothes Eye Contact: good Behavior: calm, cooperative Speech: regular rhythm and rate, normal tone and volume Mood: "pretty good" Affect: euthymic, congruent to stated mood Thought Process: linear, goal oriented Thought Content: denies SI or HI Perception: denies AVH Associations: intact Insight: Good Judgment: Good Gait: Ambulates on his own, normal arm swing Metabolic monitoring: Metabolic monitoring: Body mass index is 26.98 kg/m. Wt Readings from Last 3 Encounters: 06/11/19 85.3 kg (188 lb) 11/22/18 78.5 kg (173 lb) 08/23/18 81.6 kg (180 lb) BP Readings from Last 3 Encounters: 06/11/19 121/62 11/22/18 129/82 08/23/18 137/76 No data recorded Lab Results Component Value Date CHOL 135 08/23/2017 TRIG 82 08/23/2017 HDL 56 08/23/2017 LDL 61 08/23/2017 VLDL 16 08/23/2017 NONHDLCHOL 79 08/23/2017 Hemoglobin A1C Date Value Ref Range Status 07/13/2017 6.9 (H) 4.0 - 6.0 % Final Comment: The ADA recommends that most patients with type 1 and type 2 diabetes maintain an A1c level <7%. Assessment and Plan: - Bipolar II Disorder, Most recent episode depressed - Generalized Anxiety Disorder PLAN: - Continue Abilify 5mg -HbA1c 9.2, completed 05/16/19 -Lipids completed 05/16/19, Cholesterol 157, Triglyceides 121, HDL 54, LDL 79 - Continue: - Wellbutrin XL 150mg Qday for depression - Buspar 15mg TID for anxiety - Lyrica 100mg BID - Sertraline 200mg Qday for mood - Denies SI, HI, AH or VH. Safety plan discussed. Patient agrees to call 911 or the suicide prevention hotline, come to the ER or call the doctor of these sympt oms occur. Contracts for safety. RTC 6 months Seen and discussed with Dr. Ortiz. The proposed treatment plan was discussed with the patient who was provided the opportunity to ask questions and make suggestions regarding alternative treatmen t. documented in this encounter Plan of Treatment Not on filedocumented as of this encounter Visit Diagnoses Diagnosis MARGIE (generalized anxiety disorder) Generalized anxiety disorder Bipolar 2 disorder, major depressive ep isode (HCC) Other bipolar disorders documented in this encounter
--- OUTSIDE RECORDS SUMMARY | 2019-09-16 16:20 | XMS REPORT | Clinical Summary ---
Author Author [facility] Organization [facility] Address Unknown Phone Unavailable Care Team Providers Care Combat Information Center Officer Name Role Phone Suzanna Velez MD Unavailable Merrick Resendez DO Unavailable Shireen Ortiz DO Unavailable Fabrizio Simmons MD Unavailable Mario Suggs MD PCP Source Comments Some departments are not documenting in the electronic medical record. If you d o not see the information that you expected, contact Release of Information in [facility] Health Information Management department at [phone] for further assistan ce in locating additional records.[facility] Allergies No Known Allergies Medications End Date [...] Active HYDROcodone/acetaminophen Take 1 Tab by 0 05/05 (+) (LORTAB, NORCO) mouth every 6 6 10/325 mg tablet hours as needed Active levothyroxine (SYNTHROID) Take 200 mcg 0 07/03 200 mcg tablet by mouth 6 daily. Active insulin lispro(+) Inject 30 0 (HUMALOG) 100 unit/mL units maximum 8 injection daily via pump. ICD-10: E10.8. Active atorvastatin (LIPITOR) 80 80 mg. 0 / mg tablet 8 Active nitroglycerin (NITROSTAT) Place 0.3 mg 0 0.3 mg tablet under tongue 1 every 5 minutes as needed. Active fentaNYL (DURAGESIC) 100 Apply 1 Patch 0 08/10 mcg/hr patch to skin as 8 directed every third day. Max Daily Amount: 1 Patch Active ARIPiprazole (ABILIFY) 5 Take one 90 tablet 1 0 mg tablet tablet by 0 mouth daily. Active buPROPion XL (WELLBUTRIN Take one 90 tablet 1 0 XL) 150 mg tablet by 0 tabletIndications: MARGIE mouth every (generalized anxiety morning. Do disorder) not crush or chew. Active busPIRone (BUSPAR) 15 mg Take one 180 tablet 1 0 tabletIndications: MARGIE tablet by 0 (generalized anxiety mouth three disorder) times daily. Active sertraline (ZOLOFT) 100 Take two 180 tablet 1 mg tabletIndications: MARGIE tablets by 0 (generalized anxiety mouth daily. disorder) Active pregabalin (LYRICA) 100 Take one 180 capsule 1 mg capsule capsule by 0 mouth twice daily. Active Problems Problem Noted Date Bipolar 2 disorder, major depressive episode 018 Monoclonal gammopathy 04/27/2017 Overview: Overview: Followed by [facility] Overview: Followed by [facility] Overview: Overview: Followed by [facility] Diabetic retinopathy 06/03/2014 Dysthymia 11/07/2013 HTN (hypertension) 04/08/2013 HLD (hyperlipidemia) 04/08/2013 CAD (coronary artery disease) 04/08/2013 Hypothyroid 04/08/2013 Diabetes 04/08/2013 Anemia 04/08/2013 MARGIE (generalized anxiety disorder) 04/08/2013 Bilateral carotid artery stenosis 10/31/2011 Thrombocytopenia 10/31/2011 CKD (chronic kidney disease) stage 3, GFR 30-59 ml/mi n 11/02/2010 Resolved Problems Problem Noted Date Resolved Date MDD (major depressive disorder), recurrent episode, mild 0 10/22/2014 01/07/2016 MDD (major depressive disorder), recurrent episode, moderat e 09/16/2013 01/07/2016 MDD (major depressive disorder), recurrent episode, severe 04/08/2013 01/07/2016 Immunizations Name Administration Dates Next Due FLU VACCINE >3YO 12/18/2014 Flu Vaccine =>3 YO 01/01/2013 (Historical) Flu Vaccine =>6 Months 01/03/2017 Quadrivalent PF Flu Vaccine Quadrivalent 12/19/2015 =>3 Yo (Preservative Free) Influenza Vaccine Nasal 01/02/2016 [...] travel history available. Last Filed Vital Signs Reading Time Taken Comments Vital Sign 121/62 06/11/2019 1:05 PM CDT Blood Pressure 77 06/11/2019 1:05 PM CDT Pulse - - Temperature 16 08/23/2017 1:19 PM CDT Respiratory Rate - - Oxygen Saturation - - Inhaled Oxygen Concentration 85.3 kg (188 lb) 06/11/2019 1:05 PM CDT Weight 177.8 cm (5' 10") 06/11/2019 1:05 PM CDT Height 26.98 06/11/2019 1:05 PM CDT Body Mass Index Plan of Treatment Health Maintenance Due Date Last Done Comments MEDICARE ANNUAL WELLNESS 1954 VISIT HIV SCREENING 1969 DILATED EYE EXAM 1972 DTAP/TDAP VACCINES (1 - 1972 Tdap) FOOT EXAM 1972 HEPATITIS C SCREENING 1972 MICROALBUMIN 1972 PHYSICAL (COMPREHENSIVE) 1972 EXAM COLORECTAL CANCER 2004 SCREENING SHINGLES RECOMBINANT 2004 VACCINE (1 of 2) HBA1C 01/12/2018 07/13/2017 PNEUMONIA (PPSV23) 2019 03/06/2014 VACCINE (1 of 1 - PPSV23) INFLUENZA VACCINE 01/02/2020 12/26/2018, 01/03/2017, 01/02/2016, Additional history exists Results Not on filefrom Last 3 Months Insurance Type Payer Benefit Subscriber ID Effective Phone Address Plan / Dates Group Medicare MEDICARE MEDICARE xxxxxxxxxxx 2006-P PART A AND resent B PPO [facility] xxxxxxxxxxx [id number] resent Advance Directives Patient Insurance Healthcare Consultant Explanation Type Date Recorded Advance Directive/DPOA
--- OUTSIDE RECORDS SUMMARY | 2019-09-16 16:20 | XMS REPORT | Encounter Summary ---
Author Author [facility] Organization [facility] Address Unknown Phone Unavailable Care Team Providers Care Poultry Hatchery Supervisor Name Role Phone Suzanna Velez MD Unavailable Merrick Resendez DO Unavailable Humza Kapoor MD PCP Shireen Ortiz DO Unavailable Fabrizio Simmons MD Unavailable Reason for Visit * Reason Comments Medication Refill Encounter Details Care Team Description Date Type Department Joann Cortez MD [address] [facility] [address] [place] [address] MARGIE (generalized anxiety disorder) 04/22/2019 Refill [facility] [address] [place] [address] Social History Date Tobacco Use [...] * Telephone Encounter - Carla Lundy - 04/23/2019 4:05 PM 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 ROLLING MACHINE OPERATOR documented in this encounter Plan of Treatment Not on filedocumented as of this encounter Visit Diagnoses Diagnosis MARGIE (generalized anxiety disorder) Generalized anxiety disorder documented in this encounter
--- OUTSIDE RECORDS SUMMARY | 2019-09-16 16:24 | XMS REPORT | Continuity of Care Document ---
Author Organization Unknown Address Unknown Phone Unavailable Allergies Active Description Code Type Severity Reaction Onset Reported/Identified Relationship to Patient Clinical Status Yes No Known Drug Allergies [id number] Drug Allergy Mild N/A 07/04/2009 Yes No Known Drug Allergies [id number] Drug Allergy Unknown N/A 07/01/2018 Medications There is no data. 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 05/11/2012 Ot V03.82 PRO PHYLACTIC VACC AGAINST STREPTOCOCCUS 05/11/2012 Ot V12.51 HX- VENOUS THROMBOSIS EMBOLISM 05/11/2012 Ot V45.81 AOR TOCORONARY BYPASS 05/11/2012 Ot V45.85 INS ULIN PUMP STATUS 05/11/2012 Ot V58.67 JENNIFER G-TERM (CURRENT) USE OF INSULIN 06/05/2012 Ot 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 06/05/2012 Ot 284.19 OTH ER PANCYTOPENIA 06/05/2012 Ot 285.9 ANEM IA NOS 06/05/2012 Ot 585.9 CONTROL CLERK KATHY KIDNEY DISEASE, UNSPECIFIED 06/05/2012 Ot V58.67 JENNIFER G-TERM (CURRENT) USE OF INSULIN 06/05/2012 Ot V58.69 OTH MED,LT,CURRENT USE 11/20/2012 JAMIE VELAZQUEZ [employer] LAMINATING OPERATOR Ot 250.80 DIAB W OTH SPEC MANIFEST, TYPE II OR UNS 11/20/2012 JAMIE VELAZQUEZ [employer] LAMINATING OPERATOR Ot 780 .2 SYNCOPE AND COLLAPSE 11/20/2012 JAMIE VELAZQUEZ [employer] LAMINATING OPERATOR Ot 910 .0 ABRASION HEAD 11/20/2012 JAMIE VELAZQUEZ [employer] LAMINATING OPERATOR Ot 913 .0 ABRASION FOREARM 11/20/2012 JAMIE VELAZQUEZ [employer] LAMINATING OPERATOR Ot 916 .0 ABRASION HIP LEG 11/20/2012 JAMIE VELAZQUEZ [employer] LAMINATING OPERATOR Ot E000.8 OTHER EXTERNAL CAUSE STATUS 11/20/2012 JAMIE VELAZQUEZ [employer] LAMINATING OPERATOR Ot E03 0 UNSPECIFIED ACTIVITY 11/20/2012 JAMIE VELAZQUEZ H[employer] LAMINATING OPERATOR Ot E849.0 ACCIDENT IN HOME 11/20/2012 JAMIE VELAZQUEZ [employer] LAMINATING OPERATOR Ot E888.9 FALL NOS 11/20/2012 JAMIE VELAZQUEZ [employer] LAMINATING OPERATOR Ot V45.85 INSULIN PUMP STATUS 06/10/2013 LIZY WHITNEY N Ot 250.00 DIAB VIGNESH WO COMPL, TYPE II OR UNSPEC TY 06/10/2013 LIZY WHITNEY N Ot 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 06/10/2013 DEVONTE BOBAN N Ot 356.9 IDIO PERIPH NEURPTHY NOS 06/10/2013 DEVONTE BOBAN N Ot 585.3 CHRONIC KIDNEY DISEASE, STAGE III (MODER 06/10/2013 DEOVNTE, BOBAN N Ot V58.67 LONG-TERM (CURRENT) USE OF INSULIN 06/10/2013 LIZY WHITNEY N Ot V58.69 OTH MED,LT,CURRENT USE 09/25/2013 LIZY WHITNEY N Ot 250.00 DIAB VIGNESH WO COMPL, TYPE II OR UNSPEC TY 09/25/2013 DEVONTE BOBAN N Ot 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 09/25/2013 DEVONTE BOBAN N Ot 356.9 IDIO PERIPH NEURPTHY NOS 09/25/2013 DEVONTE BOBAN N Ot 585.3 CHRONIC KIDNEY DISEASE, STAGE III (MODER 09/25/2013 DEVONTE BOBAN N Ot V58.67 LONG-TERM (CURRENT) USE OF INSULIN 09/25/2013 LIZY WHITNEY N Ot V58.69 OTH MED,LT,CURRENT USE 03/19/2014 LIZY WHITNEY N Ot 250.00 DIAB VIGNESH WO COMPL, TYPE II OR UNSPEC TY 03/19/2014 DEVONTE, BOBAN N Ot 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 03/19/2014 DEVONTE, BOBAN N Ot 356.9 IDIO PERIPH NEURPTHY NOS 03/19/2014 DEVONTE BOBREGINA N Ot 585.3 CHRONIC KIDNEY DISEASE, STAGE III (MODER 03/19/2014 DEVONTELIZY N Ot V58.67 LONG-TERM (CURRENT) USE OF INSULIN 03/19/2014 DEVONTELIZY N Ot V58.69 OTH MED,LT,CURRENT USE 06/26/2014 DEVONTE BOBAN N Ot 250.00 06/26/2014 DEVONTE, BOBAN N Ot 273.1 06/26/2014 DEVONTE, BOBAN N Ot 356.9 06/26/2014 DEVONTE, BOBAN N Ot 585.3 06/26/2014 DEVONTE, BOBAN N Ot V58.67 06/26/2014 DEVONTE, BOBAN N Ot V58.69 06/27/2014 DEVONTE, BOBAN N Ot 250.00 06/27/2014 DEVONTE, BOBAN N Ot 273.1 06/27/2014 DEVONTE, BOBAN N Ot 356.9 06/27/2014 DEVONTE, BOBAN N Ot 585.3 06/27/2014 DEVONTE, BOBAN N Ot V58.67 06/27/2014 DEVONTE, BOBAN N Ot V58.69 06/30/2014 DEVONTE, BOBAN N Ot 250.00 06/30/2014 DEVONTE, BOBAN N Ot 273.1 06/30/2014 DEVONTE, BOBAN N Ot 356.9 06/30/2014 DEVONTE, BOBAN N [...] 08/22/2014 Ot 588.81 08/22/2014 Ot 791.0 08/22/2014 LIZY WHITNEY N Ot 250.00 08/22/2014 DEVONTELIZY MELVIN N Ot 273.1 08/22/2014 DEVONTELIZY MELVIN N Ot 356.9 08/22/2014 DEVONTELIZY N Ot 585.3 08/22/2014 DEVONTELIZY N Ot V58.67 08/22/2014 DEVONTELIZY N Ot V58.69 09/09/2014 DEVONTELIZY MELVIN N Ot 250.00 09/09/2014 DEVONTELIZY N Ot 273.1 09/09/2014 DEVONTELIZY MELVIN N Ot 356.9 09/09/2014 DEVONTELIZY N Ot 585.3 09/09/2014 DEVONTELIZY MELVIN N Ot V58.67 09/09/2014 DEVONTELIZY N Ot V58.69 09/24/2014 DEVONTELIZY MELVIN N Ot 250.00 DIAB VIGNESH WO COMPL, TYPE II OR UNSPEC TY 09/24/2014 LIZY WHITNEY N Ot 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 09/24/2014 LIZY WHITNEY N Ot 356.9 IDIO PERIPH NEURPTHY NOS 09/24/2014 LIZY WHITNEY N Ot 585.3 CHRONIC KIDNEY DISEASE, STAGE III (MODER 09/24/2014 LIZY WHITNEY N Ot V58.67 LONG-TERM (CURRENT) USE OF INSULIN 09/24/2014 LIZY WHITNEY N Ot V58.69 OT MED,LT,CURRENT USE 09/24/2014 Ot 244.9 09/24/2014 Ot 250.92 12/16/2014 HARRY SAMANO MENTAL MEASUREMENTS TEACHER Ot 250.00 12/16/2014 HARRY SAMANO MENTAL MEASUREMENTS TEACHER Ot 273.1 12/16/2014 HARRY SAMANO MENTAL MEASUREMENTS TEACHER Ot 356.9 12/16/2014 SAMANOHARRY Johnson MENTAL MEASUREMENTS TEACHER Ot 585.3 12/16/2014 HARRY SAMANO MENTAL MEASUREMENTS TEACHER Ot V58.67 12/16/2014 HARRY SAMANO MENTAL MEASUREMENTS TEACHER Ot V58.69 12/16/2014 NEW, GRACE Rivera 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 ADVISOR-C Ot 250.4 0 12/16/2014 NEW, GRACE Rivera 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 ADVISOR-C Ot 263.9 12/16/2014 NEW, GRACE Rivera 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 ADVISOR-C Ot 272.4 12/16/2014 NEW, GRACE Rivera 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 ADVISOR-C Ot 276.3 12/16/2014 NEW, GRACE Rivera 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 ADVISOR-C Ot 276.7 12/16/2014 NEW, GRACE Rivera 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 ADVISOR-C Ot 285.2 1 12/16/2014 NEW, GRACE Rivera 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 ADVISOR-C Ot 403.1 0 12/16/2014 NEW, GRACE Rivera 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 ADVISOR-C Ot 585.3 12/16/2014 NEW, GRACE Rivera 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 ADVISOR-C Ot 588.8 1 12/16/2014 NEW, GRACE Rivera 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 ADVISOR-C Ot 791.0 12/16/2014 Ot 250.40 12/16/2014 Ot [...] 12/16/2014 Ot 588.81 12/16/2014 Ot 791.0 12/16/2014 DEVONTELIZY MELVIN N Ot 250.00 12/16/2014 DEVONTELIZY MELVIN N Ot 273.1 12/16/2014 DEVONTELIZY MELVIN N Ot 356.9 12/16/2014 DEVONTELIZY MELVIN N Ot 585.3 12/16/2014 DEVONTELIZY MELVIN N Ot V58.67 12/16/2014 DEVONTELIZY MELVIN N Ot V58.69 12/18/2014 Ot 244.9 12/18/2014 Ot 250.92 01/07/2015 JT FIGUEROA MD Ot 244.8 01/07/2015 JT FIGUEROA MD Ot 246.8 01/07/2015 JT FIGUEROA MD Ot 250.93 01/22/2015 DEVONTELIZY MELVIN N Ot 250.00 01/22/2015 DEVONTELIZY MELVIN N Ot 273.1 01/22/2015 DEVONTELIZY MELVIN N Ot 356.9 01/22/2015 DEVONTELIZY MELVIN N Ot 585.3 01/22/2015 DEVONTELIZY MELVIN N Ot V58.67 01/22/2015 DEVONTELIZY MELVIN N Ot V58.69 01/27/2015 HARRY SAMANO MENTAL MEASUREMENTS TEACHER Ot D47.2 01/27/2015 HARRY SAMANO MENTAL MEASUREMENTS TEACHER Ot E11.9 01/27/2015 HARRY SAMANO MENTAL MEASUREMENTS TEACHER Ot G60.9 01/27/2015 HARRY SAMANO MENTAL MEASUREMENTS TEACHER Ot N18.3 01/27/2015 HARRY SAMANO MENTAL MEASUREMENTS TEACHER Ot Z79.4 01/27/2015 HARRY SAMANO MENTAL MEASUREMENTS TEACHER Ot Z79.899 02/03/2015 GRACE CURIEL 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 ADVISOR-C Ot D63.1 02/03/2015 GRACE CURIEL 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 ADVISOR-C Ot E11.2 9 02/03/2015 GRACE CURIEL 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 ADVISOR-C Ot E46 02/03/2015 GRACE CURIEL 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 ADVISOR-C Ot E87.5 02/03/2015 GRACE CURIEL 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 ADVISOR-C Ot I12.9 02/03/2015 GRACE CURIEL 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 ADVISOR-C Ot N18.3 02/03/2015 MOISÉS GRACE CortezLatonya 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 ADVISOR-C Ot N25.8 1 02/03/2015 GRACE CURIEL DiegoLatonya 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 ADVISOR-C Ot R80.9 02/09/2015 LIZY WHITNEY N Ot 250.00 02/09/2015 LIZY WHITNEY N Ot 273.1 02/09/2015 LIZY WHITNEY N Ot 356.9 02/09/2015 LIZY WHITNEY N Ot 585.3 02/09/2015 LIZY WHITNEY N Ot V58.67 02/09/2015 LIZY WHITNEY N Ot V58.69 02/13/2015 HARRY SAMANO MENTAL MEASUREMENTS TEACHER Ot D47.2 02/13/2015 HARRY SAMANO MENTAL MEASUREMENTS TEACHER Ot E11.9 02/13/2015 HARRY SAMANO MENTAL MEASUREMENTS TEACHER Ot G60.9 02/13/2015 HARRY SAMANO MENTAL MEASUREMENTS TEACHER Ot N18.3 02/13/2015 HARRY SAMANO MENTAL MEASUREMENTS TEACHER Ot Z79.4 02/13/2015 HARRY SAMANO MENTAL MEASUREMENTS TEACHER Ot Z79.899 03/27/2015 REGINALD PAYAN, ANANYA Cobb [...] Ot Y99.8 OTHER EXTERNAL CAUSE STATUS 04/05/2015 DEVONTELIZY N Ot D47.2 MONOCLONAL GAMMOPATHY 04/05/2015 DEVONTELIZY Ot E11.9 TYPE 2 DIABETES MELLITUS WITHOUT COMPLIC 04/05/2015 DEVONTELIZY N Ot G60.9 HEREDITARY AND IDIOPATHIC NEUROPATHY, UN 04/05/2015 DEVONTELIZY N Ot N18.3 CHRONIC KIDNEY DISEASE, STAGE 3 (MODERAT 04/05/2015 LIZY WHITNEY N Ot Z79.4 HAND COKE DRAWER (CURRENT) USE OF INSULIN 04/05/2015 LIZY WHITNEY N Ot Z79.899 OTHER SENIOR LIVING (CURRENT) DRUG THERAPY 06/08/2015 Ot 403.90 06/08/2015 [...] 272.4 06/08/2015 Ot 401.9 06/08/2015 HARRY SAMANO MENTAL MEASUREMENTS TEACHER Ot 250.00 06/08/2015 HARRY SAMANO MENTAL MEASUREMENTS TEACHER Ot 273.1 06/08/2015 HARRY SAMANO MENTAL MEASUREMENTS TEACHER Ot 356.9 06/08/2015 HARRY SAMANO MENTAL MEASUREMENTS TEACHER Ot 585.3 06/08/2015 HARRY SAMANOP Ot V58.67 06/08/2015 HARRY SAMANO MENTAL MEASUREMENTS TEACHER Ot V58.69 06/08/2015 NEW, GRACE Rivera 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 ADVISOR-C Ot 250.4 0 06/08/2015 NEW, GRACE Rivera 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 ADVISOR-C Ot 263.9 06/08/2015 NEW, GRACE Rivera 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 ADVISOR-C Ot 272.4 06/08/2015 NEW, GRACE Rivera 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 ADVISOR-C Ot 276.2 06/08/2015 NEW, GRACE Rivera 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 ADVISOR-C Ot 276.7 06/08/2015 NEW, GRACE Rivera 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 ADVISOR-C Ot 285.2 1 06/08/2015 NEW, GRACE Cortez. 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 ADVISOR-C Ot 403.1 0 06/08/2015 NEW, GRACE Rivera 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 ADVISOR-C Ot 585.3 06/08/2015 NEW, GRACE Rivera 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 ADVISOR-C Ot 588.8 1 06/08/2015 NEW, GRACE Rivera 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 ADVISOR-C Ot 791.0 06/08/2015 JAZMYNE HARRY S MENTAL MEASUREMENTS TEACHER Ot 250.00 06/08/2015 JAZMYNE PRETTYAH S MENTAL MEASUREMENTS TEACHER Ot 273.1 06/08/2015 JAZMYNE PRETTYAH S MENTAL MEASUREMENTS TEACHER Ot 356.9 06/08/2015 JAZMYNE PRETTYAH S MENTAL MEASUREMENTS TEACHER Ot 585.3 06/08/2015 JAZMYNE HILAH S MENTAL MEASUREMENTS TEACHER Ot V58.67 06/08/2015 JAZMYNE HILAH S MENTAL MEASUREMENTS TEACHER Ot V58.69 06/08/2015 CAROLINA PAYAN, JT Negrete Ot 244.9 06/08/2015 CAROLINA PAYAN, JT Negrete Ot 250.01 06/08/2015 JT FIGUEROA MD Ot 272.4 06/08/2015 NEW, GRACE Rivera 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 ADVISOR-C Ot 250.4 0 06/08/2015 NEW, GRACE Rivera 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 ADVISOR-C Ot 263.9 06/08/2015 NEW, GRACE Cortez. 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 ADVISOR-C Ot 272.4 06/08/2015 NEW, GRACE Rivera 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 ADVISOR-C Ot 276.7 06/08/2015 NEW, GRACE Rivera 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 ADVISOR-C Ot 285.2 1 06/08/2015 NEW, GRACE Rivera 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 ADVISOR-C Ot 403.1 0 06/08/2015 NEW, GRACE Cortez. 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 ADVISOR-C Ot 585.3 06/08/2015 NEW, GRACE Cortez. 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 ADVISOR-C Ot 588.8 1 06/08/2015 NEWGRACE 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 ADVISOR-C Ot 791.0 06/08/2015 NEW, GRACE Rivera 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 ADVISOR-C Ot 250.4 0 06/08/2015 NEW, GRACE Rivera 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 ADVISOR-C Ot 263.9 06/08/2015 NEW, GRACE Rivera 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 ADVISOR-C Ot 272.4 06/08/2015 NEW, GRACE Rivera 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 ADVISOR-C Ot 276.3 06/08/2015 NEW, GRACE Rivera 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 ADVISOR-C Ot 276.7 06/08/2015 NEW, GRACE Rivera 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 ADVISOR-C Ot 285.2 1 06/08/2015 NEW, GRACE Rivera 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 ADVISOR-C Ot 403.1 0 06/08/2015 NEW, GRACE Rivera 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 ADVISOR-C Ot 585.3 06/08/2015 NEW, GRACE Rivera 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 ADVISOR-C Ot 588.8 1 06/08/2015 NEWGRACE 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 ADVISOR-C Ot 791.0 06/08/2015 Ot 250.40 06/08/2015 Ot [...] 06/08/2015 JT FIGUEROA MD Ot 250.93 06/08/2015 LIZY WHITNEY N Ot 250.00 06/08/2015 LIZY WHITNEY Ot 273.1 06/08/2015 DEVONTE, BOBAN N Ot 356.9 06/08/2015 DEVONTE, BOBAN N Ot 585.3 06/08/2015 DEVONTE, BOBAN N Ot V58.67 06/08/2015 DEVONTE, BOBAN N Ot V58.69 06/08/2015 SAMANOHARRY Johnson S MENTAL MEASUREMENTS TEACHER Ot D47.2 06/08/2015 SAMANO, HILAH S MENTAL MEASUREMENTS TEACHER Ot E11.9 06/08/2015 SAMANO, HILAH S MENTAL MEASUREMENTS TEACHER Ot G60.9 06/08/2015 SAMANO, HILAH S MENTAL MEASUREMENTS TEACHER Ot N18.3 06/08/2015 SAMANO, HILAH S MENTAL MEASUREMENTS TEACHER Ot Z79.4 06/08/2015 SAMANO, HILAH S MENTAL MEASUREMENTS TEACHER Ot Z79.899 06/08/2015 NEW, GRACE Rivera 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 ADVISOR-C Ot D63.1 06/08/2015 NEW, GRACE Rivera 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 ADVISOR-C Ot E11.2 9 06/08/2015 NEW, GRACE Rivera 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 ADVISOR-C Ot E46 06/08/2015 NEW, GRACE Rivera 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 ADVISOR-C Ot E87.5 06/08/2015 NEW, GRACE Cortez. 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 ADVISOR-C Ot I12.9 06/08/2015 NEW, GRACE Cortez. 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 ADVISOR-C Ot N18.3 06/08/2015 NEW, GRACE Rivera 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 ADVISOR-C Ot N25.8 1 06/08/2015 NEW, GRACE Rivera 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 ADVISOR-C Ot R80.9 06/08/2015 DVEONTE, BOBAN N Ot D47.2 06/08/2015 DEVONTE, BOBAN N Ot E11.9 06/08/2015 DEVONTE, BOBAN N Ot G60.9 06/08/2015 DEVONTE, BOBAN N Ot N18.3 06/08/2015 DEVONTE, BOBAN N Ot Z79.4 06/08/2015 DEVONTE, BOBAN N Ot Z79.899 06/30/2015 JT FIGUEROA MD Ot E03.8 07/10/2015 DEVONTE, BOBAN N Ot D47.2 07/10/2015 DEVONTE, BOBAN N Ot E11.9 07/10/2015 DEVONTE, BOBAN N Ot G60.9 07/10/2015 DEVONTE, BOBAN N Ot N18.3 07/10/2015 DEVONTE, BOBAN N Ot Z79.4 07/10/2015 DEVONTELIZY MELVIN N Ot Z79.899 07/17/2015 RONEN WHITNEYAN N Ot D47.2 MONOCLONAL GAMMOPATHY 07/17/2015 DEVONTE BOBREGINA N Ot E11.22 TYPE 2 DIABETES MELLITUS W DIABETIC CONTROL CLERK 07/17/2015 LIZY WHITNEY N Ot G60.9 HEREDITARY AND IDIOPATHIC NEUROPATHY, UN 07/17/2015 LIZY WHITNEY N Ot N18.3 CHRONIC KIDNEY DISEASE, STAGE 3 (MODERAT 07/17/2015 DEVONTELIZY MELVIN N Ot Z79.4 HAND COKE DRAWER (CURRENT) USE OF INSULIN 07/17/2015 LIZY WHITNEY N Ot Z79.899 OTHER SENIOR LIVING (CURRENT) DRUG THERAPY 08/24/2015 LIZY WHITNEY N Ot D47.2 MONOCLONAL GAMMOPATHY 08/24/2015 DEVONTE, BOBAN N Ot E11.22 TYPE 2 DIABETES MELLITUS W DIABETIC CONTROL CLERK 08/24/2015 LIZY WHITNEY N Ot G60.9 HEREDITARY AND IDIOPATHIC NEUROPATHY, UN 08/24/2015 LIZY WHITNEY N Ot N18.3 CHRONIC KIDNEY DISEASE, STAGE 3 (MODERAT 08/24/2015 LIZY WHITNEY N Ot Z79.4 SENIOR LIVING (CURRENT) USE OF INSULIN 08/24/2015 LIZY WHITNEY N Ot Z79.899 OTHER HAND COKE DRAWER (CURRENT) DRUG THERAPY 08/28/2015 JT FIGUEROA MD Ot 244.8 ACQUIRED HYPOTHYROID NEC 08/28/2015 JT FIGUEROA MD Ot 246.8 DISORDERS OF THYROID NEC 08/28/2015 JT FIGUEROA MD Ot 250.93 DIAB W UNSPEC COMPL, TYPE I [JUVENILE TY 08/28/2015 DEVONTE BOBAN N Ot 250.00 DIAB VIGNESH WO COMPL, TYPE II OR UNSPEC TY 08/28/2015 DEVONTE BOBAN N Ot 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 08/28/2015 DEVONTE BOBAN N Ot 356.9 IDIO PERIPH NEURPTHY NOS 08/28/2015 DEVONTE BOBAN N Ot 585.3 CHRONIC KIDNEY DISEASE, STAGE III (MODER 08/28/2015 RONEN WHITNEYAN N Ot V58.67 LONG-TERM (CURRENT) USE OF INSULIN 08/28/2015 DEVONTE BOBAN N Ot V58.69 OTH MED,LT,CURRENT USE 08/28/2015 HARRY SAMANO MENTAL MEASUREMENTS TEACHER Ot D47.2 MONOCLONAL GAMMOPATHY 08/28/2015 HARRY SAMANO MENTAL MEASUREMENTS TEACHER Ot E11.9 TYPE 2 DIABETES MELLITUS WITHOUT COMPLIC 08/28/2015 HARRY SAMANO MENTAL MEASUREMENTS TEACHER Ot G60.9 HEREDITARY AND IDIOPATHIC NEUROPATHY, UN 08/28/2015 HARRY SAMANO MENTAL MEASUREMENTS TEACHER Ot N18.3 CHRONIC KIDNEY DISEASE, STAGE 3 (MODERAT 08/28/2015 SAMANOHARRY Johnson MENTAL MEASUREMENTS TEACHER Ot Z79.4 SENIOR LIVING (CURRENT) USE OF INSULIN 08/28/2015 SAMANOHARRY Johnson MENTAL MEASUREMENTS TEACHER Ot Z79.899 OTHER SENIOR LIVING (CURRENT) DRUG THERAPY 08/28/2015 LIZY WHITNEY N Ot D47.2 MONOCLONAL GAMMOPATHY 08/28/2015 LIZY WHITNEY N Ot E11.22 TYPE 2 DIABETES MELLITUS W DIABETIC CONTROL CLERK 08/28/2015 LIZY WHITNEY N Ot G60.9 HEREDITARY AND IDIOPATHIC NEUROPATHY, UN 08/28/2015 LIZY WHITNEY N Ot N18.3 CHRONIC KIDNEY DISEASE, STAGE 3 (MODERAT 08/28/2015 LIZY WHITNEY N Ot Z79.4 HAND COKE DRAWER (CURRENT) USE OF INSULIN 08/28/2015 LIZY WHITNEY N Ot Z79.899 OTHER SENIOR LIVING (CURRENT) DRUG THERAPY 08/28/2015 JT FIGUEROA MD [...] (CURRENT) USE OF INSULIN 08/28/2015 LIZY WHITNEY Peña Ot V58.69 OT MED,LT,CURRENT USE 08/28/2015 SAMANOHARRY MENTAL MEASUREMENTS TEACHER Ot D47.2 MONOCLONAL GAMMOPATHY 08/28/2015 HARRY SAMANO MENTAL MEASUREMENTS TEACHER Ot E11.9 TYPE 2 DIABETES MELLITUS WITHOUT COMPLIC 08/28/2015 SAMANOPRETTYEMANI Alex MENTAL MEASUREMENTS TEACHER Ot G60.9 HEREDITARY AND IDIOPATHIC NEUROPATHY, UN 08/28/2015 SAMANOHARRY MENTAL MEASUREMENTS TEACHER Ot N18.3 CHRONIC KIDNEY DISEASE, STAGE 3 (MODERAT 08/28/2015 SAMANOHARRY MENTAL MEASUREMENTS TEACHER Ot Z79.4 SENIOR LIVING (CURRENT) USE OF INSULIN 08/28/2015 SAMANOPRETTYEMANI Alex MENTAL MEASUREMENTS TEACHER Ot Z79.899 OTHER HAND COKE DRAWER (CURRENT) DRUG THERAPY 08/28/2015 DEVONTE RONENREGINA Peña Ot D47.2 MONOCLONAL GAMMOPATHY 08/28/2015 DEVONTE, LIZY N Ot E11.22 TYPE 2 DIABETES MELLITUS W DIABETIC CONTROL CLERK 08/28/2015 DEVONTE LIZY Pompa Ot G60.9 HEREDITARY AND IDIOPATHIC NEUROPATHY, UN 08/28/2015 DEVONTE RONENREGINA N Ot N18.3 CHRONIC KIDNEY DISEASE, STAGE 3 (MODERAT 08/28/2015 DEVONTE LIZY N Ot Z79.4 HAND COKE DRAWER (CURRENT) USE OF INSULIN 08/28/2015 DEVONTE LIZY N Ot Z79.899 OTHER SENIOR LIVING (CURRENT) DRUG THERAPY 08/28/2015 CAROLINA PAYAN, JT Negrete Ot E03.8 OTHER SPECIFIED HYPOTHYROIDISM 08/28/2015 GRACE CURIEL 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 ADVISOR-C Ot E11.2 9 TYPE 2 DIABETES MELLITUS W OTH DIABETIC 08/28/2015 GRACE CURIEL 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 ADVISOR-C Ot I10 ESSENTIAL (PRIMARY) HYPERTENSION 08/28/2015 MOISÉS GRACE G. 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 ADVISOR-C Ot N18.3 CHRONIC KIDNEY DISEASE, STAGE 3 (MODERAT 09/01/2015 GRACE CURIEL 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 ADVISOR-C Ot D47.2 MONOCLONAL GAMMOPATHY 09/01/2015 GRACE CURIEL 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 ADVISOR-C Ot D61.8 18 OTHER PANCYTOPENIA 09/01/2015 GRACE CURIEL 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 ADVISOR-C Ot D63.1 ANEMIA IN CHRONIC KIDNEY DISEASE 09/01/2015 GRACE CURIEL 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 ADVISOR-C Ot E11.2 9 TYPE 2 DIABETES MELLITUS W OTH DIABETIC 09/01/2015 NEW GRACE Diego. 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 ADVISOR-C Ot E44.1 MILD PROTEIN-CALORIE MALNUTRITION 09/01/2015 NEWGRACE DiegoLatonya 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 ADVISOR-C Ot E78.5 HYPERLIPIDEMIA, UNSPECIFIED 09/01/2015 NEW GRACE Diego. 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 ADVISOR-C Ot E87.3 ALKALOSIS 09/01/2015 NEWGRACE Diego. 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 ADVISOR-C Ot E87.5 HYPERKALEMIA 09/01/2015 NEWGRACE Diego. 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 ADVISOR-C Ot I12.9 HYPERTENSIVE CHRONIC KIDNEY DISEASE W ST 09/01/2015 NEWGRACE G. 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 ADVISOR-C Ot N18.3 CHRONIC KIDNEY DISEASE, STAGE 3 (MODERAT 09/01/2015 GRACE CURIEL G. 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 ADVISOR-C Ot N25.8 1 SECONDARY HYPERPARATHYROIDISM OF RENAL O 09/01/2015 GRACE CURIEL DiegoLatonya 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 ADVISOR-C Ot R80.9 PROTEINURIA, UNSPECIFIED 09/09/2015 LIZY WHITNEY N Ot D47.2 MONOCLONAL GAMMOPATHY 09/09/2015 LIZY WHITNEY Ot E11.22 TYPE 2 DIABETES MELLITUS W DIABETIC CONTROL CLERK 09/09/2015 LIZY WHITNEY Ot G60.9 HEREDITARY AND IDIOPATHIC NEUROPATHY, UN 09/09/2015 LIZY WHITNEY N Ot N18.3 CHRONIC KIDNEY DISEASE, STAGE 3 (MODERAT 09/09/2015 LIZY WHITNEY Ot Z79.4 SENIOR LIVING (CURRENT) USE OF INSULIN 09/09/2015 LIZY WHITNEY Ot Z79.899 OTHER HAND COKE DRAWER (CURRENT) DRUG THERAPY 09/18/2015 GRACE CURIEL 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 ADVISOR-C Ot D47.2 MONOCLONAL GAMMOPATHY 09/18/2015 GRACE CURIEL 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 ADVISOR-C Ot D61.8 18 OTHER PANCYTOPENIA 09/18/2015 NEWGRACE. 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 ADVISOR-C Ot D63.1 ANEMIA IN CHRONIC KIDNEY DISEASE 09/18/2015 NEWGRACE 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 ADVISOR-C Ot E11.2 9 TYPE 2 DIABETES [facility] DI[facility] 09/18/2015 GRACE CURIEL G. 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 ADVISOR-C Ot E44.1 MILD PROTEIN-[place] MALNUTRITION 09/18/2015 NEWGRACE. 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 ADVISOR-C Ot E78.5 HYPERLIPIDEMIA, UNSPECIFIED 09/18/2015 NEWGRACE G. 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 ADVISOR-C Ot E87.3 ALKALOSIS 09/18/2015 MOISÉS GRACE CortezLatonya 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 ADVISOR-C Ot E87.5 HYPERKALEMIA 09/18/2015 ANI CURIELMk CortezLatonya 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 ADVISOR-C Ot I12.9 HYPERTENSIVE CHRONIC KIDNEY DISEASE W ST 09/18/2015 MOISÉS GRACE CortezLatonya 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 ADVISOR-C Ot N18.3 CHRONIC KIDNEY DISEASE, STAGE 3 (MODERAT 09/18/2015 MOISÉS GRACE CortezLatonya 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 ADVISOR-C Ot N25.8 1 SECONDARY HYPERPARATHYROIDISM OF RENAL O 09/18/2015 ANI CURIELMk CortezLatonya 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 ADVISOR-C Ot R80.9 PROTEINURIA, UNSPECIFIED 10/14/2015 LIZY WHITNEY Ot D47.2 MONOCLONAL GAMMOPATHY 10/14/2015 LIZY WHITNEY Ot E11.22 TYPE 2 DIABETES MELLITUS W DIABETIC CONTROL CLERK 10/14/2015 LIZY WHITNEY Ot G60.9 HEREDITARY AND IDIOPATHIC NEUROPATHY, UN 10/14/2015 LIZY WHITNEY Ot N18.3 CHRONIC KIDNEY DISEASE, STAGE 3 (MODERAT 10/14/2015 LIZY WHITNEY Ot Z79.4 HAND COKE DRAWER (CURRENT) USE OF INSULIN 10/14/2015 LIZY WHITNEY Ot Z79.899 OTHER HAND COKE DRAWER (CURRENT) DRUG THERAPY 02/04/2016 HOLLI DAVIS MD, Ot E10.610 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 02/04/2016 HOLLI DAVIS MD, Ot I10 ESSENTIAL (PRIMARY) HYPERTENSION 02/04/2016 HOLLI DAVIS MD Ot S82.54XA NONDISP FX OF MEDIAL MALLEOLUS OF RIGHT 02/04/2016 HOLLI DAVIS MD Ot S99.921A UNSPECIFIED INJURY OF RIGHT FOOT, INITIA 02/04/2016 HOLLI DAVIS MD, Ot W01.0XXA FALL SAME LEV FROM SLIP/TRIP W/O STRIKE 02/04/2016 HOLLI DAVIS MD, Ot Y92.[address] IN [facility] NON-INSTITUT (PRIVATE 02/04/2016 HOLLI DAVIS MD, Ot Y99 .8 OTHER EXTERNAL CAUSE STATUS 02/04/2016 HOLLI DAVIS MD Ot Z79.899 OTHER HAND COKE DRAWER (CURRENT) DRUG THERAPY 02/06/2016 HOLLI DAVIS MD Ot E10.610 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 02/06/2016 HOLLI DAVIS MD, Ot I10 ESSENTIAL (PRIMARY) HYPERTENSION 02/06/2016 HOLLI DAVIS MD Ot S82.54XA NONDISP FX OF MEDIAL MALLEOLUS OF RIGHT 02/06/2016 HOLLI DAVIS MD, Ot S99.921A UNSPECIFIED INJURY OF RIGHT FOOT, INITIA 02/06/2016 HOLLI DAVIS MD, Ot W01.0XXA FALL SAME LEV FROM SLIP/TRIP W/O STRIKE 02/06/2016 HOLLI DAVIS MD Ot Y92.[address] IN [facility] NON-INSTITUT (PRIVATE 02/06/2016 HOLLI DAVIS MD Ot Y99 .8 OTHER EXTERNAL CAUSE STATUS 02/06/2016 HOLLI DAVIS MD, Ot Z79.899 OTHER SENIOR LIVING (CURRENT) DRUG THERAPY 02/14/2016 GRACE COX DO Ot E10.618 TYPE 1 DIABETES MELLITUS WITH OTHER DIAB 02/14/2016 GRACE COX DO Ot G62.9 POLYNEUROPATHY, UNSPECIFIED 02/14/2016 GRACE CXO DO Ot I10 ESSENTIAL (PRIMARY) HYPERTENSION 02/14/2016 GRACE COX DO Ot I25.10 ATHSCL HEART DISEASE OF [place] CORONARY 02/14/2016 GRACE COX DO Ot I73.9 PERIPHERAL VASCULAR DISEASE, UNSPECIFIED 02/14/2016 BROOKE GEORGE GRACE K Ot S82.851 A DISPLACED TRIMALLEOLAR FRACTURE OF RIGHT 02/14/2016 BROOKE GEORGE GRACE Daisha Ot X58.XXX A EXPOSURE TO OTHER SPECIFIED FACTORS, INI 02/14/2016 GRACE COX DO Ot Y92.[address] OR NOT APPLICABLE 02/14/2016 ANI COX DOA Daisha Ot Y93.9 ACTIVITY, UNSPECIFIED 02/14/2016 BROOKE GEORGE GRACE K Ot Y99.8 OTHER EXTERNAL CAUSE STATUS 02/14/2016 GRACE COX DO Ot Z79.899 OTHER HAND COKE DRAWER (CURRENT) DRUG THERAPY 02/14/2016 ANI COX DOA Daisha Ot Z87.891 PERSONAL HISTORY OF NICOTINE DEPENDENCE 02/14/2016 GRACE COX DO Ot Z89.421 ACQUIRED ABSENCE OF OTHER RIGHT TOE(S) 02/14/2016 Ot 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 02/14/2016 Ot 285.9 ANEM IA NOS 02/14/2016 Ot 585.3 CONTROL CLERK KATHY KIDNEY DISEASE, STAGE III (MODER 02/14/2016 Ot V58.67 JENNIFER G-TERM (CURRENT) USE OF INSULIN 02/14/2016 Ot V58.69 OTH MED,LT,CURRENT USE 02/14/2016 Ot 600.00 HYP ERTROPHY (BENIGN) OF PROSTATE W/O URI 02/14/2016 Ot 250.40 DANIEL B W RENAL MANIFEST, TYPE II OR UNSPEC 02/14/2016 Ot 403.10 HYP TNSV CHR KID DIS, BENIGN, W CHR KD ST 02/14/2016 Ot 585.3 CONTROL CLERK KATHY KIDNEY DISEASE, STAGE III (MODER 02/14/2016 Ot 244.8 ACQU IRED HYPOTHYROID NEC 02/14/2016 Ot 257.9 TEST ICULAR DYSFUNCT NOS 02/14/2016 Ot V76.44 SCR EEN MAL NEOP- PROSTATE 02/14/2016 Ot 250.40 DANIEL B W RENAL MANIFEST, TYPE II OR UNSPEC 02/14/2016 Ot 272.4 HYPE RLIPIDEMIA NEC/NOS 02/14/2016 Ot 585.3 CONTROL CLERK KATHY KIDNEY DISEASE, STAGE III (MODER 02/14/2016 Ot 791.0 PROT EINURIA 02/14/2016 Ot 250.01 DANIEL B VIGNESH WO COMPL, TYPE I [JUVENILE TYP 02/14/2016 Ot 250.40 DANIEL B W RENAL MANIFEST, TYPE II OR UNSPEC 02/14/2016 Ot 263.9 PROT EIN-NADIA MALNUTR NOS 02/14/2016 Ot 276.2 ACID OSIS 02/14/2016 Ot 276.7 HYPE RPOTASSEMIA 02/14/2016 Ot 285.21 ANE DONNA IN CHRONIC KIDNEY DISEASE 02/14/2016 Ot 403.90 HYP TNSV CHR KID DIS, UNSPEC, W CHR KD ST 02/14/2016 Ot 585.3 CONTROL CLERK KATHY KIDNEY DISEASE, STAGE III (MODER 02/14/2016 Ot 588.81 SEC ONDARY HYPERPARATHYROIDISM (OF RENAL 02/14/2016 Ot 791.0 PROT EINURIA 02/14/2016 Ot 244.9 HYPO THYROIDISM NOS 02/14/2016 Ot 250.01 DANIEL B VIGNESH WO COMPL, TYPE I [JUVENILE TYP 02/14/2016 Ot 272.4 HYPE RLIPIDEMIA NEC/NOS 02/14/2016 Ot 401.9 HYPE RTENSION NOS 02/14/2016 HARRY SAMANO MENTAL MEASUREMENTS TEACHER Ot 250.00 DIAB VIGNESH WO COMPL, TYPE II OR UNSPEC TY 02/14/2016 HARRY SAMANO MENTAL MEASUREMENTS TEACHER Ot 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 ADVISOR-C Ot 263.9 PROTEIN-NADIA MALNUTR NOS 02/14/2016 GRACE CURIEL. 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 ADVISOR-C Ot 272.4 HYPERLIPIDEMIA NEC/NOS 02/14/2016 MOISÉS GRACE G. 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 ADVISOR-C Ot 276.2 ACIDOSIS 02/14/2016 MOISÉS GRACE G. 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 ADVISOR-C Ot 276.7 HYPERPOTASSEMIA 02/14/2016 MOISÉS GRACE G. 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 ADVISOR-C Ot 285.2 1 ANEMIA IN CHRONIC KIDNEY DISEASE 02/14/2016 GRACE CURIEL GLatonya 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 ADVISOR-C Ot 403.1 0 HYPTNSV CHR KID DIS, BENIGN, W CHR KD ST 02/14/2016 GRACE CURIEL 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 ADVISOR-C Ot 585.3 CHRONIC KIDNEY DISEASE, STAGE III (MODER 02/14/2016 GRACE CURIEL 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 ADVISOR-C Ot 588.8 1 SECONDARY HYPERPARATHYROIDISM (OF RENAL 02/14/2016 GRACE CURIEL GLatonya 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 ADVISOR-C Ot 791.0 PROTEINURIA 02/14/2016 HARRY SAMANO MENTAL MEASUREMENTS TEACHER Ot 250.00 DIAB VIGNESH WO COMPL, TYPE II OR UNSPEC TY 02/14/2016 HARRY SAMANO MENTAL MEASUREMENTS TEACHER Ot 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 ADVISOR-C Ot 250.4 0 DIAB W RENAL MANIFEST, TYPE II OR UNSPEC 02/14/2016 NEW, GRACE G. 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 ADVISOR-C Ot 263.9 PROTEIN-NADIA MALNUTR NOS 02/14/2016 NEW GRACE G. 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 ADVISOR-C Ot 272.4 HYPERLIPIDEMIA NEC/NOS 02/14/2016 NEW GRACE G. 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 ADVISOR-C Ot 276.7 HYPERPOTASSEMIA 02/14/2016 MOISÉS GRACE G. 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 ADVISOR-C Ot 285.2 1 ANEMIA IN CHRONIC KIDNEY DISEASE 02/14/2016 NEW GRACE G. 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 ADVISOR-C Ot 403.1 0 HYPTNSV CHR KID DIS, BENIGN, W CHR KD ST 02/14/2016 NEW GRACE G. 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 ADVISOR-C Ot 585.3 CHRONIC KIDNEY DISEASE, STAGE III (MODER 02/14/2016 NEW GRACE G. 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 ADVISOR-C Ot 588.8 1 SECONDARY HYPERPARATHYROIDISM (OF RENAL 02/14/2016 NEW GRACE G. 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 ADVISOR-C Ot 791.0 PROTEINURIA 02/14/2016 NEW GRACE G. 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 ADVISOR-C Ot 250.4 0 DIAB W RENAL MANIFEST, TYPE II OR UNSPEC 02/14/2016 NEW GRACE G. 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 ADVISOR-C Ot 263.9 PROTEIN-NADIA MALNUTR NOS 02/14/2016 NEW GRACE G. 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 ADVISOR-C Ot 272.4 HYPERLIPIDEMIA NEC/NOS 02/14/2016 NEW GRACE G. 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 ADVISOR-C Ot 276.3 ALKALOSIS 02/14/2016 NEW GRACE G. 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 ADVISOR-C Ot 276.7 HYPERPOTASSEMIA 02/14/2016 NEW GRACE G. 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 ADVISOR-C Ot 285.2 1 ANEMIA IN CHRONIC KIDNEY DISEASE 02/14/2016 MOISÉS GRACE G. 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 ADVISOR-C Ot 403.1 0 HYPTNSV CHR KID DIS, BENIGN, W CHR KD ST 02/14/2016 MOISÉS GRACE CortezLatonya 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 ADVISOR-C Ot 585.3 CHRONIC KIDNEY DISEASE, STAGE III (MODER 02/14/2016 MOISÉS GRACE CortezLatonya 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 ADVISOR-C Ot 588.8 1 SECONDARY HYPERPARATHYROIDISM (OF RENAL 02/14/2016 NEW, GRACE CortezLatonya 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 ADVISOR-C Ot 791.0 PROTEINURIA 02/14/2016 Ot 250.40 DANIEL B W RENAL MANIFEST, TYPE II OR UNSPEC 02/14/2016 Ot 263.9 PROT EIN-NADIA MALNUTR NOS 02/14/2016 Ot 272.4 HYPE RLIPIDEMIA NEC/NOS 02/14/2016 Ot 276.3 PINA LOSIS 02/14/2016 Ot 276.7 HYPE RPOTASSEMIA 02/14/2016 Ot 285.21 ANE DONNA IN CHRONIC KIDNEY DISEASE 02/14/2016 Ot 403.10 HYP TNSV CHR KID DIS, BENIGN, W CHR KD ST 02/14/2016 Ot 585.3 CONTROL CLERK KATHY KIDNEY DISEASE, STAGE III (MODER 02/14/2016 Ot 588.81 SEC ONDARY HYPERPARATHYROIDISM (OF RENAL 02/14/2016 Ot 791.0 PROT EINURIA 02/14/2016 Ot 244.9 HYPO THYROIDISM NOS 02/14/2016 Ot 250.92 DANIEL B W UNSPEC COMPL, TYPE II OR UNSPEC T 02/14/2016 Ot 250.40 DANIEL B W RENAL MANIFEST, TYPE II OR UNSPEC 02/14/2016 Ot 263.9 PROT EIN-NADIA MALNUTR NOS 02/14/2016 Ot 272.4 HYPE RLIPIDEMIA NEC/NOS 02/14/2016 Ot 276.3 PINA LOSIS 02/14/2016 Ot 276.7 HYPE RPOTASSEMIA 02/14/2016 Ot 285.21 ANE DONNA IN CHRONIC KIDNEY DISEASE 02/14/2016 Ot 403.10 HYP TNSV CHR KID DIS, BENIGN, W CHR KD ST 02/14/2016 Ot 585.3 CONTROL CLERK KATHY KIDNEY DISEASE, STAGE III (MODER 02/14/2016 Ot 588.81 SEC ONDARY HYPERPARATHYROIDISM (OF RENAL 02/14/2016 Ot 791.0 PROT EINURIA 02/14/2016 JT FIGUEROA MD Ot 244.8 ACQUIRED [...] V58.69 OTH MED,LT,CURRENT USE 02/14/2016 HARRY SAMANO MENTAL MEASUREMENTS TEACHER Ot D47.2 MONOCLONAL GAMMOPATHY 02/14/2016 HARRY SAMANO MENTAL MEASUREMENTS TEACHER Ot E11.9 TYPE 2 DIABETES MELLITUS WITHOUT COMPLIC 02/14/2016 HARRY SAMANO MENTAL MEASUREMENTS TEACHER Ot G60.9 HEREDITARY AND IDIOPATHIC NEUROPATHY, UN 02/14/2016 HARRY SAMANO MENTAL MEASUREMENTS TEACHER Ot N18.3 CHRONIC KIDNEY DISEASE, STAGE 3 (MODERAT 02/14/2016 HARRY SAMANO MENTAL MEASUREMENTS TEACHER Ot Z79.4 SENIOR LIVING (CURRENT) USE OF INSULIN 02/14/2016 HARRY SAMANO MENTAL MEASUREMENTS TEACHER Ot Z79.899 OTHER HAND COKE DRAWER (CURRENT) DRUG THERAPY 02/14/2016 GRACE CURIEL 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 ADVISOR-C Ot D63.1 ANEMIA IN CHRONIC KIDNEY DISEASE 02/14/2016 GRACE CURIEL 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 ADVISOR-C Ot E11.2 9 TYPE 2 DIABETES MELLITUS W OTH DIABETIC 02/14/2016 GRACE CURIEL 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 ADVISOR-C Ot E46 UNSPECIFIED PROTEIN-[place] MALNUTRITION 02/14/2016 GRACE CURIEL 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 ADVISOR-C Ot E87.5 HYPERKALEMIA 02/14/2016 GRACE CURIEL 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 ADVISOR-C Ot I12.9 HYPERTENSIVE CHRONIC KIDNEY DISEASE W ST 02/14/2016 GRACE CURIEL 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 ADVISOR-C Ot N18.3 CHRONIC KIDNEY DISEASE, STAGE 3 (MODERAT 02/14/2016 GRACE CURIEL 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 ADVISOR-C Ot N25.8 1 SECONDARY HYPERPARATHYROIDISM OF RENAL O 02/14/2016 NEW, GRACE Rivera 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 ADVISOR-C Ot R80.9 PROTEINURIA, UNSPECIFIED 02/14/2016 CAROLINA PAYAN, JT Negrete Ot E03.8 OTHER SPECIFIED HYPOTHYROIDISM 02/14/2016 NEW, GRACE G. 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 ADVISOR-C Ot D47.2 MONOCLONAL GAMMOPATHY 02/14/2016 NEW, GRACE Diego. 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 ADVISOR-C Ot D61.8 18 OTHER PANCYTOPENIA 02/14/2016 NEW, GRACE G. 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 ADVISOR-C Ot D63.1 ANEMIA IN CHRONIC KIDNEY DISEASE 02/14/2016 NEW, GRACE G. 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 ADVISOR-C Ot E11.2 9 TYPE 2 DIABETES MELLITUS W OTH DIABETIC 02/14/2016 NEW, GRACE G. 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 ADVISOR-C Ot E44.1 MILD PROTEIN-[place]OR[place] MALNUTRITION 02/14/2016 NEW, GRACE G. 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 ADVISOR-C Ot E78.5 HYPERLIPIDEMIA, UNSPECIFIED 02/14/2016 NEW GRACE G. 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 ADVISOR-C Ot E87.3 ALKALOSIS 02/14/2016 NEW GRACE Diego. 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 ADVISOR-C Ot E87.5 HYPERKALEMIA 02/14/2016 NEW, GRACE G. 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 ADVISOR-C Ot I12.9 HYPERTENSIVE CHRONIC KIDNEY DISEASE W ST 02/14/2016 NEW, GRACE G. 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 ADVISOR-C Ot N18.3 CHRONIC KIDNEY DISEASE, STAGE 3 (MODERAT 02/14/2016 NEW GRACE G. 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 ADVISOR-C Ot N25.8 1 SECONDARY HYPERPARATHYROIDISM OF RENAL O 02/14/2016 NEW GRACE Cortez. 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 ADVISOR-C Ot R80.9 PROTEINURIA, UNSPECIFIED 02/14/2016 LIZY WHITNEY Ot D47.2 MONOCLONAL GAMMOPATHY 02/14/2016 LIZY WHITNEY Ot E11.22 TYPE 2 DIABETES MELLITUS W DIABETIC CONTROL CLERK 02/14/2016 LIZY WHITNEY N Ot G60.9 HEREDITARY AND IDIOPATHIC NEUROPATHY, UN 02/14/2016 LIZY WHITNEY Ot N18.3 CHRONIC KIDNEY DISEASE, STAGE 3 (MODERAT 02/14/2016 LIZY WHITNEY Ot Z79.4 HAND COKE DRAWER (CURRENT) USE OF INSULIN 02/14/2016 LIZY WHITNEY Ot Z79.899 OTHER HAND COKE DRAWER (CURRENT) DRUG THERAPY 03/16/2016 MOISÉS GRACE G. 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 ADVISOR-C Ot D63.1 ANEMIA IN CHRONIC KIDNEY DISEASE 03/16/2016 GRACE CURIEL 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 ADVISOR-C Ot E11.2 9 TYPE 2 DIABETES MELLITUS W OTH DIABETIC 03/16/2016 GRACE CURIEL 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 ADVISOR-C Ot E78.5 HYPERLIPIDEMIA, UNSPECIFIED 03/16/2016 GRACE CURIEL 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 ADVISOR-C Ot N25.8 1 SECONDARY HYPERPARATHYROIDISM OF RENAL O 04/07/2016 FROILAN DO, RAINER F Ot S82.851A DISPLACED TRIMALLEOLAR FRACTURE OF RIGHT 04/07/2016 FROILAN DO, RAINER F Ot X58.XXXA EXPOSURE TO OTHER SPECIFIED FACTORS, INI 04/07/2016 FROILAN DO, RAINER F Ot Y99.8 OTHER EXTERNAL CAUSE STATUS 04/07/2016 FROILAN DO, RAINER F Ot Z79.01 HAND COKE DRAWER (CURRENT) USE OF ANTICOAGULANT 04/07/2016 FROILAN DO, RAINER F Ot S82.851A DISPLACED TRIMALLEOLAR FRACTURE OF RIGHT 04/07/2016 FROILAN DO, RAINER F Ot X58.XXXA EXPOSURE TO OTHER SPECIFIED FACTORS, INI 04/07/2016 FROILAN DO, RAINER F Ot Y99.8 OTHER EXTERNAL CAUSE STATUS 04/07/2016 FROILAN DO, RAINER F Ot Z79.01 SENIOR LIVING (CURRENT) USE OF ANTICOAGULANT 04/11/2016 GRACE CURIEL 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 ADVISOR-C Ot D47.2 MONOCLONAL GAMMOPATHY 04/11/2016 GRACE CURIEL 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 ADVISOR-C Ot D61.8 18 OTHER PANCYTOPENIA 04/11/2016 GRACE CURIEL 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 ADVISOR-C Ot D63.1 ANEMIA IN CHRONIC KIDNEY DISEASE 04/11/2016 GRACE CURIEL 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 ADVISOR-C Ot E11.2 2 TYPE 2 DIABETES MELLITUS W DIABETIC CONTROL CLERK 04/11/2016 GRACE CURIEL 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 ADVISOR-C Ot E44.1 MILD PROTEIN-CALORIE MALNUTRITION 04/11/2016 GRACE CURIEL 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 ADVISOR-C Ot E78.5 HYPERLIPIDEMIA, UNSPECIFIED 04/11/2016 GRACE CURIEL 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 ADVISOR-C Ot E87.3 ALKALOSIS 04/11/2016 GRACE CURIEL 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 ADVISOR-C Ot E87.5 HYPERKALEMIA 04/11/2016 GRACE CURIEL 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 ADVISOR-C Ot I12.9 HYPERTENSIVE CHRONIC KIDNEY DISEASE W ST 04/11/2016 GRACE CURIEL 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 ADVISOR-C Ot N18.3 CHRONIC KIDNEY DISEASE, STAGE 3 (MODERAT 04/11/2016 MOISÉS GRACE G. 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 ADVISOR-C Ot N25.8 1 SECONDARY HYPERPARATHYROIDISM OF RENAL O 04/11/2016 GRACE CURIEL 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 ADVISOR-C Ot R80.9 PROTEINURIA, UNSPECIFIED 04/11/2016 RAINER MCGOVERN DO Ot S82.851A DISPLACED TRIMALLEOLAR FRACTURE OF RIGHT 04/11/2016 RAINER MCGOVERN DO Ot X58.XXXA EXPOSURE TO OTHER SPECIFIED FACTORS, INI 04/11/2016 RAINER MCGOVERN DO Ot Y99.8 OTHER EXTERNAL CAUSE STATUS 04/11/2016 RAINER MCGOVERN DO Ot Z79.01 HAND COKE DRAWER (CURRENT) USE OF ANTICOAGULANT 04/19/2016 RADHA GUPTA MD Ot D64.9 ANEMIA, UNSPECIFIED 04/19/2016 RADHA GUPTA MD Ot E10.4 2 TYPE 1 DIABETES MELLITUS WITH DIABETIC P 04/19/2016 RADHA GUPTA MD Ot E78.0 0 PURE HYPERCHOLESTEROLEMIA, UNSPECIFIED 04/19/2016 RADHA GUPTA MD Ot F32.9 MAJOR DEPRESSIVE DISORDER, SINGLE EPISOD 04/19/2016 RADHA GUPTA MD Ot F41.9 ANXIETY DISORDER, UNSPECIFIED 04/19/2016 RADHA GUPTA MD Ot I10 ESSENTIAL (PRIMARY) HYPERTENSION 04/19/2016 RADHA GUPTA MD Ot I25.1 0 ATHSCL HEART DISEASE OF [place] CORONARY 04/19/2016 RADHA GUPTA MD Ot I25.2 OLD MYOCARDIAL INFARCTION 04/19/2016 RADHA GUPTA MD Ot I73.9 PERIPHERAL VASCULAR DISEASE, UNSPECIFIED 04/19/2016 RADHA GUPTA MD Ot K59.0 3 DRUG INDUCED CONSTIPATION 04/19/2016 RADHA GUPTA MD Ot N28.9 DISORDER OF KIDNEY AND URETER, UNSPECIFI 04/19/2016 RADHA GUPTA MD Ot T40.2X5A ADVERSE EFFECT OF OTHER OPIOIDS, INITIAL 04/19/2016 RADHA GUPTA MD Ot Z47.8 1 ENCOUNTER FOR ORTHOPEDIC AFTERCARE FOLLO 04/19/2016 RADHA GUPTA MD Ot Z79.4 HAND COKE DRAWER (CURRENT) USE OF INSULIN 04/19/2016 RADHA GUPTA MD Ot Z86.7 18 PERSONAL HISTORY OF OTHER VENOUS THROMBO 04/19/2016 RADHA GUPTA MD Ot Z89.5 11 ACQUIRED ABSENCE OF RIGHT LEG BELOW KNEE 04/19/2016 RADHA GUPTA MD Ot Z95.1 PRESENCE OF AORTOCORONARY BYPASS GRAFT 04/23/2016 RADHA GUPTA MD Ot D64.9 ANEMIA, UNSPECIFIED 04/23/2016 RADHA GUPTA MD Ot E10.4 2 TYPE 1 DIABETES MELLITUS WITH DIABETIC P 04/23/2016 RADHA GUPTA MD Ot E78.0 0 PURE HYPERCHOLESTEROLEMIA, UNSPECIFIED 04/23/2016 RADHA GUPTA MD Ot F32.9 MAJOR DEPRESSIVE DISORDER, SINGLE EPISOD 04/23/2016 RADHA GUPTA MD Ot F41.9 ANXIETY DISORDER, UNSPECIFIED 04/23/2016 RADHA GUPTA MD Ot I10 ESSENTIAL (PRIMARY) HYPERTENSION 04/23/2016 RADHA GPUTA MD Ot I25.1 0 ATHSCL HEART DISEASE OF [place] CORONARY 04/23/2016 RADHA GUPTA MD Ot I25.2 OLD MYOCARDIAL INFARCTION 04/23/2016 RADHA GUPTA MD Ot I73.9 PERIPHERAL VASCULAR DISEASE, UNSPECIFIED 04/23/2016 RADHA GUPTA MD Ot K59.0 3 DRUG INDUCED CONSTIPATION 04/23/2016 RADHA GUPTA MD Ot N28.9 DISORDER OF KIDNEY AND URETER, UNSPECIFI 04/23/2016 RADHA GUPTA MD Ot T40.2X5A ADVERSE EFFECT OF OTHER OPIOIDS, INITIAL 04/23/2016 RADHA GUPTA MD Ot Z47.8 1 ENCOUNTER FOR ORTHOPEDIC AFTERCARE FOLLO 04/23/2016 RADHA GUPTA MD Ot Z79.4 SENIOR LIVING (CURRENT) USE OF INSULIN 04/23/2016 RADHA GUPTA MD Ot Z86.7 18 PERSONAL HISTORY OF OTHER VENOUS THROMBO 04/23/2016 RADHA GUPTA MD Ot Z89.5 11 ACQUIRED ABSENCE OF RIGHT LEG BELOW KNEE 04/23/2016 RADHA GUPTA MD Ot Z95.1 PRESENCE OF AORTOCORONARY BYPASS GRAFT 04/26/2016 RADHA GUPTA MD Ot D64.9 ANEMIA, UNSPECIFIED 04/26/2016 RADHA GUPTA MD Ot E10.4 2 TYPE 1 DIABETES MELLITUS WITH DIABETIC P 04/26/2016 RADHA GUPTA MD Ot E78.0 0 PURE HYPERCHOLESTEROLEMIA, UNSPECIFIED 04/26/2016 RADHA GUPTA MD Ot F32.9 MAJOR DEPRESSIVE DISORDER, SINGLE EPISOD 04/26/2016 RADHA GUPTA MD Ot F41.9 ANXIETY DISORDER, UNSPECIFIED 04/26/2016 RADHA GUPTA MD Ot I10 ESSENTIAL (PRIMARY) HYPERTENSION 04/26/2016 RADHA GUPTA MD Ot I25.1 0 ATHSCL HEART DISEASE OF [place] CORONARY 04/26/2016 RADHA GUPTA MD Ot I25.2 OLD MYOCARDIAL INFARCTION 04/26/2016 RADHA GUPTA MD Ot I73.9 PERIPHERAL VASCULAR DISEASE, UNSPECIFIED 04/26/2016 RADHA GUPTA MD Ot K59.0 3 DRUG INDUCED CONSTIPATION 04/26/2016 RADHA GUPTA MD Ot N28.9 DISORDER OF KIDNEY AND URETER, UNSPECIFI 04/26/2016 RADHA GUPTA MD Ot T40.2X5A ADVERSE EFFECT OF OTHER OPIOIDS, INITIAL 04/26/2016 RADHA GUPTA MD Ot Z47.8 1 ENCOUNTER FOR ORTHOPEDIC AFTERCARE FOLLO 04/26/2016 RADHA GUPTA MD Ot Z79.4 SENIOR LIVING (CURRENT) USE OF INSULIN 04/26/2016 RADHA GUPTA MD Ot Z86.7 18 PERSONAL HISTORY OF OTHER VENOUS THROMBO 04/26/2016 RADHA GUPTA MD Ot Z89.5 11 ACQUIRED ABSENCE OF RIGHT LEG BELOW KNEE 04/26/2016 RADHA GUPTA MD Ot Z95.1 PRESENCE OF AORTOCORONARY BYPASS GRAFT 04/27/2016 RADHA GUPTA MD Ot D64.9 ANEMIA, UNSPECIFIED 04/27/2016 RADHA GUPTA MD Ot E10.4 2 TYPE 1 DIABETES MELLITUS WITH DIABETIC P 04/27/2016 RADHA GUPTA MD Ot E78.0 0 PURE HYPERCHOLESTEROLEMIA, UNSPECIFIED 04/27/2016 RADHA GUPTA MD Ot F32.9 MAJOR DEPRESSIVE DISORDER, SINGLE EPISOD 04/27/2016 RADHA GUPTA MD Ot F41.9 ANXIETY DISORDER, UNSPECIFIED 04/27/2016 RADHA GUPTA MD Ot I10 ESSENTIAL (PRIMARY) HYPERTENSION 04/27/2016 RADHA GUPTA MD Ot I25.1 0 ATHSCL HEART DISEASE OF [place] CORONARY 04/27/2016 RADHA GUPTA MD Ot I25.2 OLD MYOCARDIAL INFARCTION 04/27/2016 RADHA GUPTA MD Ot I73.9 PERIPHERAL VASCULAR DISEASE, UNSPECIFIED 04/27/2016 RADHA GUPTA MD Ot K59.0 3 DRUG INDUCED CONSTIPATION 04/27/2016 RADHA GUPTA MD, Ot N28.9 DISORDER OF KIDNEY AND URETER, UNSPECIFI 04/27/2016 RADHA GUPTA MD, Ot T40.2X5A ADVERSE EFFECT OF OTHER OPIOIDS, INITIAL 04/27/2016 RADHA GUPTA MD, Ot Z47.8 1 ENCOUNTER FOR ORTHOPEDIC AFTERCARE FOLLO 04/27/2016 RADHA GUPTA MD, Ot Z79.4 SENIOR LIVING (CURRENT) USE OF INSULIN 04/27/2016 RADHA GUPTA MD, Ot Z86.7 18 PERSONAL HISTORY OF OTHER VENOUS THROMBO 04/27/2016 RADHA GUPTA MD, Ot Z89.5 11 ACQUIRED ABSENCE OF RIGHT LEG BELOW KNEE 04/27/2016 RADHA GUPTA MD, Ot Z95.1 PRESENCE OF AORTOCORONARY BYPASS GRAFT 04/28/2016 FROILAN GEORGE RAINER F Ot S82.851A DISPLACED TRIMALLEOLAR FRACTURE OF RIGHT 04/28/2016 FROILAN DO RAINER F Ot X58.XXXA EXPOSURE TO OTHER SPECIFIED FACTORS, INI 04/28/2016 FROILAN GEORGE RAINER Kassidy Ot Y99.8 OTHER EXTERNAL CAUSE STATUS 04/28/2016 FROILAN DO RAINER Kassidy Ot Z79.01 SENIOR LIVING (CURRENT) USE OF ANTICOAGULANT 07/22/2016 LIZY WHITNEY Ot D47.2 MONOCLONAL GAMMOPATHY 07/22/2016 LIZY WHITNEY Ot E11.22 TYPE 2 DIABETES MELLITUS W DIABETIC CONTROL CLERK 07/22/2016 LIZY WHITNEY Ot G60.9 HEREDITARY AND IDIOPATHIC NEUROPATHY, UN 07/22/2016 LIZY WHITNEY Ot N18.3 CHRONIC KIDNEY DISEASE, STAGE 3 (MODERAT 07/22/2016 LIZY WHITNEY Ot Z79.4 HAND COKE DRAWER (CURRENT) USE OF INSULIN 07/22/2016 LIZY WHITNEY Ot Z79.899 OTHER SENIOR LIVING (CURRENT) DRUG THERAPY 08/04/2016 LIZY WHITNEY Ot M84.371 A STRESS FRACTURE, RIGHT ANKLE, INITIAL EN 08/09/2016 LIZY WHITNEY Ot M84.371 A STRESS FRACTURE, RIGHT ANKLE, INITIAL EN 08/16/2016 LIZY WHITNEY Ot M84.371 A STRESS FRACTURE, RIGHT ANKLE, INITIAL EN 08/24/2016 LIZY WHITNEY Ot D47.2 MONOCLONAL GAMMOPATHY 08/24/2016 LIZY WHITNEY N Ot D63.8 ANEMIA IN OTHER CHRONIC DISEASES CLASSIF 08/24/2016 LIZY WHITNEY N Ot E11.22 TYPE 2 DIABETES MELLITUS W DIABETIC CONTROL CLERK 08/24/2016 LIZY WHITNEY N Ot G60.9 HEREDITARY AND IDIOPATHIC NEUROPATHY, UN 08/24/2016 LIZY WHITNEY N Ot N18.3 CHRONIC KIDNEY DISEASE, STAGE 3 (MODERAT 08/24/2016 LIZY WHITNEY N Ot Z79.4 HAND COKE DRAWER (CURRENT) USE OF INSULIN 08/24/2016 LIZY WHITNEY N Ot Z79.899 OTHER HAND COKE DRAWER (CURRENT) DRUG THERAPY 09/06/2016 LIZY WHITNEY N Ot M84.371 A STRESS FRACTURE, RIGHT ANKLE, INITIAL EN 09/15/2016 LIZY WHITNEY N Ot D47.2 MONOCLONAL GAMMOPATHY 09/15/2016 LIZY WHITNEY N Ot D63.8 ANEMIA IN OTHER CHRONIC DISEASES CLASSIF 09/15/2016 LIZY WHITNEY N Ot E11.22 TYPE 2 DIABETES MELLITUS W DIABETIC CONTROL CLERK 09/15/2016 LIZY WHITNEY N Ot G60.9 HEREDITARY AND IDIOPATHIC NEUROPATHY, UN 09/15/2016 LIZY WHITNEY N Ot N18.3 CHRONIC KIDNEY DISEASE, STAGE 3 (MODERAT 09/15/2016 LIZY WHITNEY N Ot Z79.4 SENIOR LIVING (CURRENT) USE OF INSULIN 09/15/2016 LIZY WHITNEY N Ot Z79.899 OTHER HAND COKE DRAWER (CURRENT) DRUG THERAPY 09/19/2016 Ot 250.40 DANIEL B W RENAL MANIFEST, TYPE II OR UNSPEC 09/19/2016 Ot 263.9 PROT EIN-NADIA MALNUTR NOS 09/19/2016 Ot 276.2 ACID OSIS 09/19/2016 Ot 276.7 HYPE RPOTASSEMIA 09/19/2016 Ot 285.21 ANE DONNA IN CHRONIC KIDNEY DISEASE 09/19/2016 Ot 403.90 HYP TNSV CHR KID DIS, UNSPEC, W CHR KD ST 09/19/2016 Ot 585.3 CONTROL CLERK KATHY KIDNEY DISEASE, STAGE III (MODER 09/19/2016 Ot 588.81 SEC ONDARY HYPERPARATHYROIDISM (OF RENAL 09/19/2016 Ot 791.0 PROT EINURIA 09/19/2016 Ot 244.9 HYPO THYROIDISM NOS 09/19/2016 Ot 250.01 DANIEL B VIGNESH WO COMPL, TYPE I [JUVENILE TYP 09/19/2016 Ot 272.4 HYPE RLIPIDEMIA NEC/NOS 09/19/2016 Ot 401.9 HYPE RTENSION NOS 09/19/2016 HARRY SAMANO MENTAL MEASUREMENTS TEACHER Ot 250.00 DIAB VIGNESH WO COMPL, TYPE II OR UNSPEC TY 09/19/2016 HARRY SAMANO MENTAL MEASUREMENTS TEACHER Ot 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 09/19/2016 HARRY SAMANO MENTAL MEASUREMENTS TEACHER Ot 356.9 IDIO PERIPH NEURPTHY NOS 09/19/2016 HARRY SAMANO MENTAL MEASUREMENTS TEACHER Ot 585.3 CHRONIC KIDNEY DISEASE, STAGE III (MODER 09/19/2016 HARRY SAMANO MENTAL MEASUREMENTS TEACHER Ot V58.67 LONG-TERM (CURRENT) USE OF INSULIN 09/19/2016 HARRY SAMANO MENTAL MEASUREMENTS TEACHER Ot V58.69 OTH MED,LT,CURRENT USE 09/19/2016 GRACE CURIEL 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 ADVISOR-C Ot 250.4 0 DIAB W RENAL MANIFEST, TYPE II OR UNSPEC 09/19/2016 GRACE CURIEL 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 ADVISOR-C Ot 263.9 PROTEIN-NADIA MALNUTR NOS 09/19/2016 GRACE CURIEL 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 ADVISOR-C Ot 272.4 HYPERLIPIDEMIA NEC/NOS 09/19/2016 GRACE CURIEL 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 ADVISOR-C Ot 276.2 ACIDOSIS 09/19/2016 GRACE CURIEL 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 ADVISOR-C Ot 276.7 HYPERPOTASSEMIA 09/19/2016 GRACE CURIEL 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 ADVISOR-C Ot 285.2 1 ANEMIA IN CHRONIC KIDNEY DISEASE 09/19/2016 GRACE CURIEL 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 ADVISOR-C Ot 403.1 0 HYPTNSV CHR KID DIS, BENIGN, W CHR KD ST 09/19/2016 GRACE CURIEL 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 ADVISOR-C Ot 585.3 CHRONIC KIDNEY DISEASE, STAGE III (MODER 09/19/2016 GRACE CURIEL 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 ADVISOR-C Ot 588.8 1 SECONDARY HYPERPARATHYROIDISM (OF RENAL 09/19/2016 GRACE CURIEL 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 ADVISOR-C Ot 791.0 PROTEINURIA 09/19/2016 HARRY SAMANO MENTAL MEASUREMENTS TEACHER Ot 250.00 DIAB VIGNESH WO COMPL, TYPE II OR UNSPEC TY 09/19/2016 HARRY SAMANO MENTAL MEASUREMENTS TEACHER Ot 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 09/19/2016 HARRY SAMANO MENTAL MEASUREMENTS TEACHER Ot 356.9 IDIO PERIPH NEURPTHY NOS 09/19/2016 HARRY SAMANO MENTAL MEASUREMENTS TEACHER Ot 585.3 CHRONIC KIDNEY DISEASE, STAGE III (MODER 09/19/2016 HARRY SAMANO MENTAL MEASUREMENTS TEACHER Ot V58.67 LONG-TERM (CURRENT) USE OF INSULIN 09/19/2016 HARRY SAMANO MENTAL MEASUREMENTS TEACHER Ot V58.69 OTH MED,LT,CURRENT USE 09/19/2016 JT FIGUEROA MD Ot 244.9 HYPOTHYROIDISM NOS 09/19/2016 JT FIGUEROA MD Ot 250.01 DIAB VIGNESH WO COMPL, TYPE I [JUVENILE TYP 09/19/2016 JT FIGUEROA MD Ot 272.4 HYPERLIPIDEMIA NEC/NOS 09/19/2016 MOISÉS GRACE GLatonya 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 ADVISOR-C Ot 250.4 0 DIAB W RENAL MANIFEST, TYPE II OR UNSPEC 09/19/2016 MOISÉS GRACE GLatonya 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 ADVISOR-C Ot 263.9 PROTEIN-NADIA MALNUTR NOS 09/19/2016 MOISÉS GRACE G. 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 ADVISOR-C Ot 272.4 HYPERLIPIDEMIA NEC/NOS 09/19/2016 MOISÉS GRACE G. 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 ADVISOR-C Ot 276.7 HYPERPOTASSEMIA 09/19/2016 NEW GRACE G. 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 ADVISOR-C Ot 285.2 1 ANEMIA IN CHRONIC KIDNEY DISEASE 09/19/2016 MOISÉS GRACE G. 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 ADVISOR-C Ot 403.1 0 HYPTNSV CHR KID DIS, BENIGN, W CHR KD ST 09/19/2016 GRACE CURIEL GLatonya 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 ADVISOR-C Ot 585.3 CHRONIC KIDNEY DISEASE, STAGE III (MODER 09/19/2016 MOISÉS GRACE G. 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 ADVISOR-C Ot 588.8 1 SECONDARY HYPERPARATHYROIDISM (OF RENAL 09/19/2016 NEW GRACE G. 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 ADVISOR-C Ot 791.0 PROTEINURIA 09/19/2016 NEW GRACE G. 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 ADVISOR-C Ot 250.4 0 DIAB W RENAL MANIFEST, TYPE II OR UNSPEC 09/19/2016 NEW GRACE G. 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 ADVISOR-C Ot 263.9 PROTEIN-NADIA MALNUTR NOS 09/19/2016 NEW GRACE G. 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 ADVISOR-C Ot 272.4 HYPERLIPIDEMIA NEC/NOS 09/19/2016 MOISÉS GRACE G. 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 ADVISOR-C Ot 276.3 ALKALOSIS 09/19/2016 NEW GRACE G. 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 ADVISOR-C Ot 276.7 HYPERPOTASSEMIA 09/19/2016 GRACE CURIEL 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 ADVISOR-C Ot 285.2 1 ANEMIA IN CHRONIC KIDNEY DISEASE 09/19/2016 MOISÉS, GRACE Rivera NP-C Ot 403.1 0 HYPTNSV CHR KID DIS, BENIGN, W CHR KD ST 09/19/2016 GRACE CURIEL NP-C Ot 585.3 CHRONIC KIDNEY DISEASE, STAGE III (MODER 09/19/2016 GRACE CURIEL NP-C Ot 588.8 1 SECONDARY HYPERPARATHYROIDISM (OF RENAL 09/19/2016 NEW, GRACE Rivera NP-C Ot 791.0 PROTEINURIA 09/19/2016 Ot 250.40 DANIEL B W RENAL MANIFEST, TYPE II OR UNSPEC 09/19/2016 Ot 263.9 PROT EIN-NADIA MALNUTR NOS 09/19/2016 Ot 272.4 HYPE RLIPIDEMIA NEC/NOS 09/19/2016 Ot 276.3 PINA LOSIS 09/19/2016 Ot 276.7 HYPE RPOTASSEMIA 09/19/2016 Ot 285.21 ANE DONNA IN CHRONIC KIDNEY DISEASE 09/19/2016 Ot 403.10 HYP TNSV CHR KID DIS, BENIGN, W CHR KD ST 09/19/2016 Ot 585.3 CONTROL CLERK KATHY KIDNEY DISEASE, STAGE III (MODER 09/19/2016 Ot 588.81 SEC ONDARY HYPERPARATHYROIDISM (OF RENAL 09/19/2016 Ot 791.0 PROT EINURIA 09/19/2016 Ot 244.9 HYPO THYROIDISM NOS 09/19/2016 Ot 250.92 DANIEL B W UNSPEC COMPL, TYPE II OR UNSPEC T 09/19/2016 Ot 250.40 DANIEL B W RENAL MANIFEST, TYPE II OR UNSPEC 09/19/2016 Ot 263.9 PROT EIN-NADIA MALNUTR NOS 09/19/2016 Ot 272.4 HYPE RLIPIDEMIA NEC/NOS 09/19/2016 Ot 276.3 PINA LOSIS 09/19/2016 Ot 276.7 HYPE RPOTASSEMIA 09/19/2016 Ot 285.21 ANE DONNA IN CHRONIC KIDNEY DISEASE 09/19/2016 Ot 403.10 HYP TNSV CHR KID DIS, BENIGN, W CHR KD ST 09/19/2016 Ot 585.3 CONTROL CLERK KATHY KIDNEY DISEASE, STAGE III (MODER 09/19/2016 Ot 588.81 SEC ONDARY HYPERPARATHYROIDISM (OF RENAL 09/19/2016 Ot 791.0 PROT EINURIA 09/19/2016 JT FIGUEROA MD Ot 244.8 ACQUIRED HYPOTHYROID NEC 09/19/2016 JT FIGUEROA MD Ot 246.8 DISORDERS OF THYROID NEC 09/19/2016 JT FIGUEROA MD Ot 250.93 DIAB W UNSPEC COMPL, TYPE I [JUVENILE TY 09/19/2016 LIZY WHITNEY N Ot 250.00 DIAB VIGNESH WO COMPL, TYPE II OR UNSPEC TY 09/19/2016 LIZY WHITNEY N Ot 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 09/19/2016 LIZY WHITNEY N Ot 356.9 IDIO PERIPH NEURPTHY NOS 09/19/2016 LIZY WHITNEY N Ot 585.3 CHRONIC KIDNEY DISEASE, STAGE III (MODER 09/19/2016 LIZY WHITNEY Ot V58.67 LONG-TERM (CURRENT) USE OF INSULIN 09/19/2016 LIZY WHITNEY Ot V58.69 OTH MED,LT,CURRENT USE 09/19/2016 HARRY SAMANO MENTAL MEASUREMENTS TEACHER Ot D47.2 MONOCLONAL GAMMOPATHY 09/19/2016 HARRY SAMANO MENTAL MEASUREMENTS TEACHER Ot E11.9 TYPE 2 DIABETES MELLITUS WITHOUT COMPLIC 09/19/2016 HARRY SAMANO MENTAL MEASUREMENTS TEACHER Ot G60.9 HEREDITARY AND IDIOPATHIC NEUROPATHY, UN 09/19/2016 HARRY SAMANO MENTAL MEASUREMENTS TEACHER Ot N18.3 CHRONIC KIDNEY DISEASE, STAGE 3 (MODERAT 09/19/2016 HARRY SAMANO MENTAL MEASUREMENTS TEACHER Ot Z79.4 SENIOR LIVING (CURRENT) USE OF INSULIN 09/19/2016 HARRY SAMANO MENTAL MEASUREMENTS TEACHER Ot Z79.899 OTHER SENIOR LIVING (CURRENT) DRUG THERAPY 09/19/2016 GRACE CURIEL 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 ADVISOR-C Ot D63.1 ANEMIA IN CHRONIC KIDNEY DISEASE 09/19/2016 GRACE CURIEL 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 ADVISOR-C Ot E11.2 9 TYPE 2 DIABETES MELLITUS W OTH DIABETIC 09/19/2016 GRACE CURIEL 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 ADVISOR-C Ot E46 UNSPECIFIED PROTEIN-CALORIE MALNUTRITION 09/19/2016 GRACE CURIEL 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 ADVISOR-C Ot E87.5 HYPERKALEMIA 09/19/2016 GRACE CURIEL 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 ADVISOR-C Ot I12.9 HYPERTENSIVE CHRONIC KIDNEY DISEASE W ST 09/19/2016 NEW, GRACE G. 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 ADVISOR-C Ot N18.3 CHRONIC KIDNEY DISEASE, STAGE 3 (MODERAT 09/19/2016 NEW, GRACE G. 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 ADVISOR-C Ot N25.8 1 SECONDARY HYPERPARATHYROIDISM OF RENAL O 09/19/2016 NEW, GRACE G. 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 ADVISOR-C Ot R80.9 PROTEINURIA, UNSPECIFIED 09/19/2016 CAROLINA PAYAN, JT Negrete Ot E03.8 OTHER SPECIFIED HYPOTHYROIDISM 09/19/2016 NEW, GRACE G. 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 ADVISOR-C Ot D47.2 MONOCLONAL GAMMOPATHY 09/19/2016 NEW, GRACE G. 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 ADVISOR-C Ot D61.8 18 OTHER PANCYTOPENIA 09/19/2016 NEW, GRACE G. 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 ADVISOR-C Ot D63.1 ANEMIA IN CHRONIC KIDNEY DISEASE 09/19/2016 NEW, GRACE G. 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 ADVISOR-C Ot E11.2 9 TYPE 2 DIABETES MELLITUS W OTH DIABETIC 09/19/2016 NEW, GRACE G. 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 ADVISOR-C Ot E44.1 MILD PROTEIN-CALORIE MALNUTRITION 09/19/2016 NEW, GRACE Diego. 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 ADVISOR-C Ot E78.5 HYPERLIPIDEMIA, UNSPECIFIED 09/19/2016 NEW, GRACE G. 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 ADVISOR-C Ot E87.3 ALKALOSIS 09/19/2016 NEW, GRACE G. 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 ADVISOR-C Ot E87.5 HYPERKALEMIA 09/19/2016 NEW, GRACE G. 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 ADVISOR-C Ot I12.9 HYPERTENSIVE CHRONIC KIDNEY DISEASE W ST 09/19/2016 NEW, GRACE G. 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 ADVISOR-C Ot N18.3 CHRONIC KIDNEY DISEASE, STAGE 3 (MODERAT 09/19/2016 NEW, GRACE G. 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 ADVISOR-C Ot N25.8 1 SECONDARY HYPERPARATHYROIDISM OF RENAL O 09/19/2016 NEW, GRACE G. 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 ADVISOR-C Ot R80.9 PROTEINURIA, UNSPECIFIED 09/19/2016 LIZY WHITNEY N Ot D47.2 MONOCLONAL GAMMOPATHY 09/19/2016 DEVONTE, BOBREGINA N Ot D63.8 ANEMIA IN OTHER CHRONIC DISEASES CLASSIF 09/19/2016 LIZY WHITNEY N Ot E11.22 TYPE 2 DIABETES MELLITUS W DIABETIC CONTROL CLERK 09/19/2016 DEVONTE BOBREGINA N Ot G60.9 HEREDITARY AND IDIOPATHIC NEUROPATHY, UN 09/19/2016 LIZY WHITNEY N Ot N18.3 CHRONIC KIDNEY DISEASE, STAGE 3 (MODERAT 09/19/2016 DEVONTE BOBAN N Ot Z79.4 HAND COKE DRAWER (CURRENT) USE OF INSULIN 09/19/2016 LIZY WHITNEY Peña Ot Z79.899 OTHER HAND COKE DRAWER (CURRENT) DRUG THERAPY 09/19/2016 NEW GRACE Diego. 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 ADVISOR-C Ot D47.2 MONOCLONAL GAMMOPATHY 09/19/2016 NEW, GRACE G. 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 ADVISOR-C Ot D61.8 18 OTHER PANCYTOPENIA 09/19/2016 NEW, GRACE G. 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 ADVISOR-C Ot D63.1 ANEMIA IN CHRONIC KIDNEY DISEASE 09/19/2016 NEW, GRACE G. 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 ADVISOR-C Ot E11.2 2 TYPE 2 DIABETES MELLITUS W DIABETIC CONTROL CLERK 09/19/2016 NEW, GRACE G. 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 ADVISOR-C Ot E44.1 MILD PROTEIN-CALORIE MALNUTRITION 09/19/2016 NEW, GRACE G. 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 ADVISOR-C Ot E78.5 HYPERLIPIDEMIA, UNSPECIFIED 09/19/2016 NEW, GRACE G. 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 ADVISOR-C Ot E87.3 ALKALOSIS 09/19/2016 NEW, GRACE G. 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 ADVISOR-C Ot E87.5 HYPERKALEMIA 09/19/2016 NEW, GRACE G. MANUFACTURING ADVISOR-C Ot I12.9 HYPERTENSIVE CHRONIC KIDNEY DISEASE W ST 09/19/2016 NEW, GRACE G. MANUFACTURING ADVISOR-C Ot N18.3 CHRONIC KIDNEY DISEASE, STAGE 3 (MODERAT 09/19/2016 NEW, GRACE G. MANUFACTURING ADVISOR-C Ot N25.8 1 SECONDARY HYPERPARATHYROIDISM OF RENAL O 09/19/2016 NEW, GRACE G. MANUFACTURING ADVISOR-C Ot R80.9 PROTEINURIA, UNSPECIFIED 09/19/2016 FROILAN DO, RAINER F Ot S82.851A DISPLACED TRIMALLEOLAR FRACTURE OF RIGHT 09/19/2016 RAINER MCGOVERN DO F Ot X58.XXXA EXPOSURE TO OTHER SPECIFIED FACTORS, INI 09/19/2016 FROILAN GEORGE RAINER Kassidy Ot Y99.8 OTHER EXTERNAL CAUSE STATUS 09/19/2016 RAINER MCGOVERN DO Ot Z79.01 HAND COKE DRAWER (CURRENT) USE OF ANTICOAGULANT 09/19/2016 DEVONTELIZY Ot M84.371 A STRESS FRACTURE, RIGHT ANKLE, INITIAL EN 09/20/2016 JT FIGUEROA MD Ot E03.4 ATROPHY OF THYROID (ACQUIRED) 09/20/2016 JT FIGUEROA MD Ot E10.8 TYPE 1 DIABETES MELLITUS WITH UNSPECIFIE 09/27/2016 Ot 250.40 DANIEL B W RENAL MANIFEST, TYPE II OR UNSPEC 09/27/2016 Ot 263.9 PROT EIN-NADIA MALNUTR NOS 09/27/2016 Ot 276.2 ACID OSIS 09/27/2016 Ot 276.7 HYPE RPOTASSEMIA 09/27/2016 Ot 285.21 ANE DONNA IN CHRONIC KIDNEY DISEASE 09/27/2016 Ot 403.90 HYP TNSV CHR KID DIS, UNSPEC, W CHR KD ST 09/27/2016 Ot 585.3 CONTROL CLERK KATHY KIDNEY DISEASE, STAGE III (MODER 09/27/2016 Ot 588.81 SEC ONDARY HYPERPARATHYROIDISM (OF RENAL 09/27/2016 Ot 791.0 PROT EINURIA 09/27/2016 Ot 244.9 HYPO THYROIDISM NOS 09/27/2016 Ot 250.01 DANIEL B VIGNESH WO COMPL, TYPE I [JUVENILE TYP 09/27/2016 Ot 272.4 HYPE RLIPIDEMIA NEC/NOS 09/27/2016 Ot 401.9 HYPE RTENSION NOS 09/27/2016 HARRY SAMANO MENTAL MEASUREMENTS TEACHER Ot 250.00 DIAB VIGNESH WO COMPL, TYPE II OR UNSPEC TY 09/27/2016 HARRY SAMANO MENTAL MEASUREMENTS TEACHER Ot 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 MANUFACTURING ADVISOR-C Ot 250.4 0 DIAB W RENAL MANIFEST, TYPE II OR UNSPEC 09/27/2016 MOISÉS GRACE G. MANUFACTURING ADVISOR-C Ot 263.9 PROTEIN-NADIA MALNUTR NOS 09/27/2016 MOISÉS GRACE G. MANUFACTURING ADVISOR-C Ot 272.4 HYPERLIPIDEMIA NEC/NOS 09/27/2016 MOISÉS GRACE G. MANUFACTURING ADVISOR-C Ot 276.2 ACIDOSIS 09/27/2016 MOISÉS GRACE G. MANUFACTURING ADVISOR-C Ot 276.7 HYPERPOTASSEMIA 09/27/2016 GRACE CURIEL G. 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 09/27/2016 HARRY SAMANO MENTAL MEASUREMENTS TEACHER Ot 356.9 IDIO PERIPH NEURPTHY NOS 09/27/2016 HARRY SAMANO MENTAL MEASUREMENTS TEACHER Ot 585.3 CHRONIC KIDNEY DISEASE, STAGE III (MODER 09/27/2016 HARRY SAMANO MENTAL MEASUREMENTS TEACHER Ot V58.67 LONG-TERM (CURRENT) USE OF INSULIN 09/27/2016 HARRY SAMANO MENTAL MEASUREMENTS TEACHER Ot V58.69 OTH MED,LT,CURRENT USE 09/27/2016 JT FIGUEROA MD Ot 244.9 HYPOTHYROIDISM NOS 09/27/2016 JT FIGUEROA MD Ot 250.01 DIAB VIGNESH WO COMPL, TYPE I [JUVENILE TYP 09/27/2016 JT FIGUEROA MD Ot 272.4 HYPERLIPIDEMIA NEC/NOS 09/27/2016 GRACE CURIEL MANUFACTURING ADVISOR-C Ot 250.4 0 DIAB W RENAL MANIFEST, TYPE II OR UNSPEC 09/27/2016 GRACE CURIEL MANUFACTURING ADVISOR-C Ot 263.9 PROTEIN-NADIA MALNUTR NOS 09/27/2016 GRACE CURIEL MANUFACTURING ADVISOR-C Ot 272.4 HYPERLIPIDEMIA NEC/NOS 09/27/2016 GRACE CURIEL MANUFACTURING ADVISOR-C Ot 276.7 HYPERPOTASSEMIA 09/27/2016 GRACE CURIEL MANUFACTURING ADVISOR-C Ot 285.2 1 ANEMIA IN CHRONIC KIDNEY DISEASE 09/27/2016 GRACE CURIEL MANUFACTURING ADVISOR-C Ot 403.1 0 HYPTNSV CHR KID DIS, BENIGN, W CHR KD ST 09/27/2016 GRACE CURIEL MANUFACTURING ADVISOR-C Ot 585.3 CHRONIC KIDNEY DISEASE, STAGE III (MODER 09/27/2016 NEW, GRACE Rivera MANUFACTURING ADVISOR-C Ot 588.8 1 SECONDARY HYPERPARATHYROIDISM (OF RENAL 09/27/2016 NEW, GRACE Cortez. MANUFACTURING ADVISOR-C Ot 791.0 PROTEINURIA 09/27/2016 NEW, GRACE G. MANUFACTURING ADVISOR-C Ot 250.4 0 DIAB W RENAL MANIFEST, TYPE II OR UNSPEC 09/27/2016 NEW, GRACE G. MANUFACTURING ADVISOR-C Ot 263.9 PROTEIN-NADIA MALNUTR NOS 09/27/2016 NEW, GRACE G. MANUFACTURING ADVISOR-C Ot 272.4 HYPERLIPIDEMIA NEC/NOS 09/27/2016 NEW, GRACE G. MANUFACTURING ADVISOR-C Ot 276.3 ALKALOSIS 09/27/2016 NEW, GRACE G. MANUFACTURING ADVISOR-C Ot 276.7 HYPERPOTASSEMIA 09/27/2016 NEW, GRACE G. MANUFACTURING ADVISOR-C Ot 285.2 1 ANEMIA IN CHRONIC KIDNEY DISEASE 09/27/2016 NEW, GRACE Cortez. MANUFACTURING ADVISOR-C Ot 403.1 0 HYPTNSV CHR KID DIS, BENIGN, W CHR KD ST 09/27/2016 NEW, GRACE Rivera MANUFACTURING ADVISOR-C Ot 585.3 CHRONIC KIDNEY DISEASE, STAGE III (MODER 09/27/2016 NEW, GRACE Rivera MANUFACTURING ADVISOR-C Ot 588.8 1 SECONDARY HYPERPARATHYROIDISM (OF RENAL 09/27/2016 NEW, GRACE Rivera MANUFACTURING ADVISOR-C Ot 791.0 PROTEINURIA 09/27/2016 Ot 250.40 DANIEL B W RENAL MANIFEST, TYPE II OR UNSPEC 09/27/2016 Ot 263.9 PROT EIN-NADIA MALNUTR NOS 09/27/2016 Ot 272.4 HYPE RLIPIDEMIA NEC/NOS 09/27/2016 Ot 276.3 PINA LOSIS 09/27/2016 Ot 276.7 HYPE RPOTASSEMIA 09/27/2016 Ot 285.21 ANE DONNA IN CHRONIC KIDNEY DISEASE 09/27/2016 Ot 403.10 HYP TNSV CHR KID DIS, BENIGN, W CHR KD ST 09/27/2016 Ot 585.3 CONTROL CLERK KATHY KIDNEY DISEASE, STAGE III (MODER 09/27/2016 Ot 588.81 SEC ONDARY HYPERPARATHYROIDISM (OF RENAL 09/27/2016 Ot 791.0 PROT EINURIA 09/27/2016 Ot 244.9 HYPO THYROIDISM NOS 09/27/2016 Ot 250.92 DANIEL B W UNSPEC COMPL, TYPE II OR UNSPEC T 09/27/2016 Ot 250.40 DANIEL B W RENAL MANIFEST, TYPE II OR UNSPEC 09/27/2016 Ot 263.9 PROT EIN-NADIA MALNUTR NOS 09/27/2016 Ot 272.4 HYPE RLIPIDEMIA NEC/NOS 09/27/2016 Ot 276.3 PINA LOSIS 09/27/2016 Ot 276.7 HYPE RPOTASSEMIA 09/27/2016 Ot 285.21 ANE DONNA IN CHRONIC KIDNEY DISEASE 09/27/2016 Ot 403.10 HYP TNSV CHR KID DIS, BENIGN, W CHR KD ST 09/27/2016 Ot 585.3 CONTROL CLERK KATHY KIDNEY DISEASE, STAGE III (MODER 09/27/2016 Ot 588.81 SEC ONDARY HYPERPARATHYROIDISM (OF RENAL 09/27/2016 Ot 791.0 PROT EINURIA 09/27/2016 JT FIGUEROA MD Ot 244.8 ACQUIRED HYPOTHYROID NEC 09/27/2016 JT FIGUEROA MD Ot 246.8 DISORDERS OF THYROID NEC 09/27/2016 JT FIGUEROA MD Ot 250.93 DIAB W UNSPEC COMPL, TYPE I [JUVENILE TY 09/27/2016 LIZY WHITNEY Ot 250.00 DIAB VIGNESH WO COMPL, TYPE II OR UNSPEC TY 09/27/2016 LIZY WHITNEY Ot 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 09/27/2016 LIZY WHITNEY Ot 356.9 IDIO PERIPH NEURPTHY NOS 09/27/2016 LIZY WHITNEY Ot 585.3 CHRONIC KIDNEY DISEASE, STAGE III (MODER 09/27/2016 LIZY WHITNEY Ot V58.67 LONG-TERM (CURRENT) USE OF INSULIN 09/27/2016 LIZY WHITNEY Ot V58.69 OTH MED,LT,CURRENT USE 09/27/2016 HARRY SAMANO Ot D47.2 MONOCLONAL GAMMOPATHY 09/27/2016 HARRY SAMANO Ot E11.9 TYPE 2 DIABETES MELLITUS WITHOUT COMPLIC 09/27/2016 HARRY SAMANO Ot G60.9 HEREDITARY AND IDIOPATHIC NEUROPATHY, UN 09/27/2016 HARRY SAMANOP Ot N18.3 CHRONIC KIDNEY DISEASE, STAGE 3 (MODERAT 09/27/2016 HARRY SAMANOP Ot Z79.4 HAND COKE DRAWER (CURRENT) USE OF INSULIN 09/27/2016 HARRY SAMANO [facility] Ot Z79.899 OTHER SENIOR LIVING (CURRENT) DRUG THERAPY 09/27/2016 NEW, GRACE GLatonya MANUFACTURING ADVISOR-C Ot D63.1 ANEMIA IN CHRONIC KIDNEY DISEASE 09/27/2016 NEW, GRACE GLatonya MANUFACTURING ADVISOR-C Ot E11.2 9 TYPE 2 DIABETES MELLITUS W [facility] DIABETIC 09/27/2016 NEW, GRACE G. MANUFACTURING ADVISOR-C Ot E46 UNSPECIFIED PROTEIN-CALORIE MALNUTRITION 09/27/2016 NEW, GRACE G. MANUFACTURING ADVISOR-C Ot E87.5 HYPERKALEMIA 09/27/2016 NEW, GRACE G. MANUFACTURING ADVISOR-C Ot I12.9 HYPERTENSIVE CHRONIC KIDNEY DISEASE W ST 09/27/2016 NEW, GRACE G. MANUFACTURING ADVISOR-C Ot N18.3 CHRONIC KIDNEY DISEASE, STAGE 3 (MODERAT 09/27/2016 NEW, GRACE G. MANUFACTURING ADVISOR-C Ot N25.8 1 SECONDARY HYPERPARATHYROIDISM OF RENAL O 09/27/2016 NEW, GRACE G. MANUFACTURING ADVISOR-C Ot R80.9 PROTEINURIA, UNSPECIFIED 09/27/2016 CAROLINA PAYAN, JT Negrete Ot E03.8 OTHER SPECIFIED HYPOTHYROIDISM 09/27/2016 NEW, GRACE G. MANUFACTURING ADVISOR-C Ot D47.2 MONOCLONAL GAMMOPATHY 09/27/2016 NEW, GRACE G. MANUFACTURING ADVISOR-C Ot D61.8 18 OTHER PANCYTOPENIA 09/27/2016 NEW, GRACE G. MANUFACTURING ADVISOR-C Ot D63.1 ANEMIA IN CHRONIC KIDNEY DISEASE 09/27/2016 NEW, GRACE G. MANUFACTURING ADVISOR-C Ot E11.2 9 TYPE 2 DIABETES MELLITUS W [facility] DIABETIC 09/27/2016 NEW, GRACE G. MANUFACTURING ADVISOR-C Ot E44.1 MILD PROTEIN-CALORIE MALNUTRITION 09/27/2016 NEW, GRACE G. MANUFACTURING ADVISOR-C Ot E78.5 HYPERLIPIDEMIA, UNSPECIFIED 09/27/2016 NEW, GRACE G. MANUFACTURING ADVISOR-C Ot E87.3 ALKALOSIS 09/27/2016 NEW, GRACE G. MANUFACTURING ADVISOR-C Ot E87.5 HYPERKALEMIA 09/27/2016 NEW, GRACE G. MANUFACTURING ADVISOR-C Ot I12.9 HYPERTENSIVE CHRONIC KIDNEY DISEASE W ST 09/27/2016 NEW, GRACE G. MANUFACTURING ADVISOR-C Ot N18.3 CHRONIC KIDNEY DISEASE, STAGE 3 (MODERAT 09/27/2016 NEW, GRACE G. MANUFACTURING ADVISOR-C Ot N25.8 1 SECONDARY HYPERPARATHYROIDISM OF RENAL O 09/27/2016 NEW, GRACE G. MANUFACTURING ADVISOR-C Ot R80.9 PROTEINURIA, UNSPECIFIED 09/27/2016 ILZY WHITNEY N Ot D47.2 MONOCLONAL GAMMOPATHY 09/27/2016 LIZY WHITNEY N Ot D63.8 ANEMIA IN OTHER CHRONIC DISEASES CLASSIF 09/27/2016 LIZY WHITNEY N Ot E11.22 TYPE 2 DIABETES MELLITUS W DIABETIC CONTROL CLERK 09/27/2016 LIZY WHITNEY N Ot G60.9 HEREDITARY AND IDIOPATHIC NEUROPATHY, UN 09/27/2016 LIZY WHITNEY N Ot N18.3 CHRONIC KIDNEY DISEASE, STAGE 3 (MODERAT 09/27/2016 LIZY WHITNEY N Ot Z79.4 HAND COKE DRAWER (CURRENT) USE OF INSULIN 09/27/2016 LIZY WHITNEY N Ot Z79.899 OTHER HAND COKE DRAWER (CURRENT) DRUG THERAPY 09/27/2016 NEW GRACE G. MANUFACTURING ADVISOR-C Ot D47.2 MONOCLONAL GAMMOPATHY 09/27/2016 NEW, GRACE G. MANUFACTURING ADVISOR-C Ot D61.8 18 OTHER PANCYTOPENIA 09/27/2016 NEW, GRACE G. MANUFACTURING ADVISOR-C Ot D63.1 ANEMIA IN CHRONIC KIDNEY DISEASE 09/27/2016 NEW, GRACE G. MANUFACTURING ADVISOR-C Ot E11.2 2 TYPE 2 DIABETES MELLITUS W DIABETIC CONTROL CLERK 09/27/2016 NEW, GRACE G. MANUFACTURING ADVISOR-C Ot E44.1 MILD PROTEIN-CALORIE MALNUTRITION 09/27/2016 NEW, GRACE G. MANUFACTURING ADVISOR-C Ot E78.5 HYPERLIPIDEMIA, UNSPECIFIED 09/27/2016 NEW, GRACE G. MANUFACTURING ADVISOR-C Ot E87.3 ALKALOSIS 09/27/2016 NEW, GRACE G. MANUFACTURING ADVISOR-C Ot E87.5 HYPERKALEMIA 09/27/2016 NEW, GRACE G. MANUFACTURING ADVISOR-C Ot I12.9 HYPERTENSIVE CHRONIC KIDNEY DISEASE W ST 09/27/2016 NEW, GRACE G. MANUFACTURING ADVISOR-C Ot N18.3 CHRONIC KIDNEY DISEASE, STAGE 3 (MODERAT 09/27/2016 NEW, GRACE G. MANUFACTURING ADVISOR-C Ot N25.8 1 SECONDARY HYPERPARATHYROIDISM OF RENAL O 09/27/2016 NEW, GRACE G. MANUFACTURING ADVISOR-C Ot R80.9 PROTEINURIA, UNSPECIFIED 09/27/2016 RAINER MCGOVERN DO Ot S82.851A DISPLACED TRIMALLEOLAR FRACTURE OF RIGHT 09/27/2016 RAINER MCGOVERN DO Ot X58.XXXA EXPOSURE TO OTHER SPECIFIED FACTORS, INI 09/27/2016 RAINER MCGOVERN DO Ot Y99.8 OTHER EXTERNAL CAUSE STATUS 09/27/2016 RAINER MCGOVERN DO Ot Z79.01 SENIOR LIVING (CURRENT) USE OF ANTICOAGULANT 09/27/2016 LIZY WHITNEY Peña Ot M84.371 A STRESS FRACTURE, RIGHT ANKLE, INITIAL EN 09/27/2016 JT FIGUEROA MD Ot E03.4 ATROPHY OF THYROID (ACQUIRED) 09/27/2016 JT FIGUEROA MD Ot E10.8 TYPE 1 DIABETES MELLITUS WITH UNSPECIFIE 09/29/2016 JAMIE VELAZQUEZ APRN Ot E03 .9 HYPOTHYROIDISM, UNSPECIFIED 09/29/2016 JAMIE VELAZQUEZ APRN Ot E10.51 TYPE 1 DIABETES W DIABETIC PERIPHERAL AN 09/29/2016 JAMIE VELAZQUEZ APRN Ot E21 .5 DISORDER OF PARATHYROID GLAND, UNSPECIFI 09/29/2016 JAMIE VELAZQUEZ APRN Ot E78.00 PURE HYPERCHOLESTEROLEMIA, UNSPECIFIED 09/29/2016 JAMIE VELAZQUEZ APRN Ot I10 ESSENTIAL (PRIMARY) HYPERTENSION 09/29/2016 JAMIE VELAZQUEZ APRN Ot I25.10 ATHSCL HEART DISEASE OF [place] CORONARY 09/29/2016 JAMIE VELAZQUEZ APRN Ot I25 .2 OLD MYOCARDIAL INFARCTION 09/29/2016 JAMIE VELAZQUEZ APRN Ot R23 .8 OTHER SKIN CHANGES 09/29/2016 JAMIE VELAZQUEZ APRN Ot Z79 .4 HAND COKE DRAWER (CURRENT) USE OF INSULIN 09/29/2016 JAMIE VELAZQUEZ APRN Ot Z79.899 OTHER HAND COKE DRAWER (CURRENT) DRUG THERAPY 09/29/2016 JAMIE VELAZQUEZ APRN Ot Z89.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 09/29/2016 JAMIE VELAZQUEZ APRN Ot Z95 .1 PRESENCE OF AORTOCORONARY BYPASS GRAFT 10/07/2016 JT FIGUEROA MD Ot 244.8 ACQUIRED HYPOTHYROID NEC 10/07/2016 JT FIGUEROA MD Ot 246.8 DISORDERS OF THYROID NEC 10/07/2016 JT FIGUEROA MD Ot 250.93 DIAB W UNSPEC COMPL, TYPE I [JUVENILE TY 10/07/2016 LIZY WHITNEY Peña Ot 250.00 DIAB VIGNESH WO COMPL, TYPE II OR UNSPEC TY 10/07/2016 LIZY WHITNEY Peña Ot 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 10/07/2016 LIZY WHITNEY Peña Ot 356.9 IDIO PERIPH NEURPTHY NOS 10/07/2016 LIZY WHITNEY Ot 585.3 CHRONIC KIDNEY DISEASE, STAGE III (MODER 10/07/2016 LIZY WHITNEY Peña Ot V58.67 LONG-TERM (CURRENT) USE OF INSULIN 10/07/2016 LIZY WHITNEY Peña Ot V58.69 OTH MED,LT,CURRENT USE 10/07/2016 HARRY SAMANOP Ot D47.2 MONOCLONAL GAMMOPATHY 10/07/2016 HARRY SAMANO MENTAL MEASUREMENTS TEACHER Ot E11.9 TYPE 2 DIABETES MELLITUS WITHOUT COMPLIC 10/07/2016 HARRY SAMANO MENTAL MEASUREMENTS TEACHER Ot G60.9 HEREDITARY AND IDIOPATHIC NEUROPATHY, UN 10/07/2016 HARRY SAMANO MENTAL MEASUREMENTS TEACHER Ot N18.3 CHRONIC KIDNEY DISEASE, STAGE 3 (MODERAT 10/07/2016 HARRY SAMANO MENTAL MEASUREMENTS TEACHER Ot Z79.4 HAND COKE DRAWER (CURRENT) USE OF INSULIN 10/07/2016 HARRY SAMANO MENTAL MEASUREMENTS TEACHER Ot Z79.899 OTHER HAND COKE DRAWER (CURRENT) DRUG THERAPY 10/07/2016 CAROLINA PAYAN, JT Negrete Ot E03.8 OTHER SPECIFIED HYPOTHYROIDISM 10/07/2016 GRACE CURIEL MANUFACTURING ADVISOR-C Ot D47.2 MONOCLONAL GAMMOPATHY 10/07/2016 GRACE CURIEL MANUFACTURING ADVISOR-C Ot D61.8 18 OTHER PANCYTOPENIA 10/07/2016 GRACE CURIEL MANUFACTURING ADVISOR-C Ot D63.1 ANEMIA IN CHRONIC KIDNEY DISEASE 10/07/2016 GRACE CURIEL MANUFACTURING ADVISOR-C Ot E11.2 9 TYPE 2 DIABETES MELLITUS W OTH DIABETIC 10/07/2016 GRACE CURIEL MANUFACTURING ADVISOR-C Ot E44.1 MILD PROTEIN-CALORIE MALNUTRITION 10/07/2016 GRACE CURIEL MANUFACTURING ADVISOR-C Ot E78.5 HYPERLIPIDEMIA, UNSPECIFIED 10/07/2016 GRACE CURIEL MANUFACTURING ADVISOR-C Ot E87.3 ALKALOSIS 10/07/2016 GRACE CURIEL MANUFACTURING ADVISOR-C Ot E87.5 HYPERKALEMIA 10/07/2016 NEWGRACE MANUFACTURING ADVISOR-C Ot I12.9 HYPERTENSIVE CHRONIC KIDNEY DISEASE W ST 10/07/2016 NEWGRACE MANUFACTURING ADVISOR-C Ot N18.3 CHRONIC KIDNEY DISEASE, STAGE 3 (MODERAT 10/07/2016 GRACE CURIEL MANUFACTURING ADVISOR-C Ot N25.8 1 SECONDARY HYPERPARATHYROIDISM OF RENAL O 10/07/2016 GRACE CURIEL MANUFACTURING ADVISOR-C Ot R80.9 PROTEINURIA, UNSPECIFIED 10/07/2016 DEVONTELIZY N Ot D47.2 MONOCLONAL GAMMOPATHY 10/07/2016 DEVONTE BOBAN N Ot D63.8 ANEMIA IN OTHER CHRONIC DISEASES CLASSIF 10/07/2016 LIZY WHITNEY N Ot E11.22 TYPE 2 DIABETES MELLITUS W DIABETIC CONTROL CLERK 10/07/2016 DEVONTELIZY N Ot G60.9 HEREDITARY AND IDIOPATHIC NEUROPATHY, UN 10/07/2016 DEVONTELIZY N Ot N18.3 CHRONIC KIDNEY DISEASE, STAGE 3 (MODERAT 10/07/2016 LIZY WHITNEY N Ot Z79.4 SENIOR LIVING (CURRENT) USE OF INSULIN 10/07/2016 DEVONTE BOBREGINA N Ot Z79.899 OTHER SENIOR LIVING (CURRENT) DRUG THERAPY 10/07/2016 GRACE CURIEL MANUFACTURING ADVISOR-C Ot D47.2 MONOCLONAL GAMMOPATHY 10/07/2016 GRACE CURIEL MANUFACTURING ADVISOR-C Ot D61.8 18 OTHER PANCYTOPENIA 10/07/2016 GRACE CURIEL MANUFACTURING ADVISOR-C Ot D63.1 ANEMIA IN CHRONIC KIDNEY DISEASE 10/07/2016 GRACE UCRIEL MANUFACTURING ADVISOR-C Ot E11.2 2 TYPE 2 DIABETES MELLITUS W DIABETIC CONTROL CLERK 10/07/2016 NEWGRACE MANUFACTURING ADVISOR-C Ot E44.1 MILD PROTEIN-CALORIE MALNUTRITION 10/07/2016 NEWGRACE MANUFACTURING ADVISOR-C Ot E78.5 HYPERLIPIDEMIA, UNSPECIFIED 10/07/2016 NEWGRACE MANUFACTURING ADVISOR-C Ot E87.3 ALKALOSIS 10/07/2016 NEW GRACE GLatonya MANUFACTURING ADVISOR-C Ot E87.5 HYPERKALEMIA 10/07/2016 NEWGRACE MANUFACTURING ADVISOR-C Ot I12.9 HYPERTENSIVE CHRONIC KIDNEY DISEASE W ST 10/07/2016 GRACE CURIEL MANUFACTURING ADVISOR-C Ot N18.3 CHRONIC KIDNEY DISEASE, STAGE 3 (MODERAT 10/07/2016 GRACE CURIEL MANUFACTURING ADVISOR-C Ot N25.8 1 SECONDARY HYPERPARATHYROIDISM OF RENAL O 10/07/2016 GRACE CURIEL MANUFACTURING ADVISOR-C Ot R80.9 PROTEINURIA, UNSPECIFIED 10/07/2016 RAINER MCGOVERN DO Ot S82.851A DISPLACED TRIMALLEOLAR FRACTURE OF RIGHT 10/07/2016 RAINER MCGOVERN DO Ot X58.XXXA EXPOSURE TO OTHER SPECIFIED FACTORS, INI 10/07/2016 RAINER MCGOVERN DO Ot Y99.8 OTHER EXTERNAL CAUSE STATUS 10/07/2016 RAINER MCGOVERN DO Ot Z79.01 HAND COKE DRAWER (CURRENT) USE OF ANTICOAGULANT 10/07/2016 DEVONTERONENREGINA Peña Ot M84.371 A STRESS FRACTURE, RIGHT ANKLE, INITIAL EN 10/07/2016 CAROLINA PAYAN, JT Negrete Ot E03.4 ATROPHY OF THYROID (ACQUIRED) 10/07/2016 CAROLINA PAYAN, JT Negrete Ot E10.8 TYPE 1 DIABETES MELLITUS WITH UNSPECIFIE 10/07/2016 GRACE CURIEL MANUFACTURING ADVISOR-C Ot D47.2 MONOCLONAL GAMMOPATHY 10/07/2016 GRACE CURIEL MANUFACTURING ADVISOR-C Ot D61.8 18 OTHER PANCYTOPENIA 10/07/2016 GRACE CURIEL GLatonya MANUFACTURING ADVISOR-C Ot D63.1 ANEMIA IN CHRONIC KIDNEY DISEASE 10/07/2016 GRACE CURIEL MANUFACTURING ADVISOR-C Ot E11.2 9 TYPE 2 DIABETES MELLITUS W OTH DIABETIC 10/07/2016 GRACE CURIEL MANUFACTURING ADVISOR-C Ot E44.1 MILD PROTEIN-CALORIE MALNUTRITION 10/07/2016 GRACE CURIEL GLatonya MANUFACTURING ADVISOR-C Ot E78.5 HYPERLIPIDEMIA, UNSPECIFIED 10/07/2016 GRACE CURIEL GLatonya MANUFACTURING ADVISOR-C Ot E87.3 ALKALOSIS 10/07/2016 MOISÉS GRACE GLatonya MANUFACTURING ADVISOR-C Ot E87.5 HYPERKALEMIA 10/07/2016 MOISÉS GRACE GLatonya MANUFACTURING ADVISOR-C Ot I12.9 HYPERTENSIVE CHRONIC KIDNEY DISEASE W ST 10/07/2016 GRACE CURIEL GLatonya MANUFACTURING ADVISOR-C Ot N18.3 CHRONIC KIDNEY DISEASE, STAGE 3 (MODERAT 10/07/2016 GRACE CURIEL MANUFACTURING ADVISOR-C Ot N25.8 1 SECONDARY HYPERPARATHYROIDISM OF RENAL O 10/07/2016 NEW, GRACE G. 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 10/18/2016 ROGER YBARRA MD Ot E10.42 TYPE 1 DIABETES MELLITUS WITH DIABETIC P 10/18/2016 ROGER YBARRA MD, Ot L25 .9 UNSPECIFIED CONTACT DERMATITIS, UNSPECIF 10/18/2016 ROGER YBARRA MD, Ot Z89.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 10/19/2016 LIZY WHITNEY N Ot D47.2 MONOCLONAL GAMMOPATHY 10/19/2016 RONEN WHITNEYAN N Ot D63.8 ANEMIA IN OTHER CHRONIC DISEASES CLASSIF 10/19/2016 DEVONTE, BOBAN N Ot E11.22 TYPE 2 DIABETES MELLITUS W DIABETIC CONTROL CLERK 10/19/2016 DEVONTE, BOBAN N Ot G60.9 HEREDITARY AND IDIOPATHIC NEUROPATHY, UN 10/19/2016 DEVONTE, BOBAN N Ot N18.3 CHRONIC KIDNEY DISEASE, STAGE 3 (MODERAT 10/19/2016 DEVONTE BOBAN N Ot Z79.4 HAND COKE DRAWER (CURRENT) USE OF INSULIN 10/19/2016 DEVONTELIZY N Ot Z79.899 OTHER HAND COKE DRAWER (CURRENT) DRUG THERAPY 10/20/2016 DEVONTE BOBAN N Ot D47.2 MONOCLONAL GAMMOPATHY 10/20/2016 DEVONTE BOBAN N Ot D63.8 ANEMIA IN OTHER CHRONIC DISEASES CLASSIF 10/20/2016 DEVONTE, BOBAN N Ot E11.22 TYPE 2 DIABETES MELLITUS W DIABETIC CONTROL CLERK 10/20/2016 DEVONTE, BOBAN N Ot G60.9 HEREDITARY AND IDIOPATHIC NEUROPATHY, UN 10/20/2016 DEVONTE, BOBAN N Ot N18.3 CHRONIC KIDNEY DISEASE, STAGE 3 (MODERAT 10/20/2016 DEVONTE BOBAN N Ot Z79.4 SENIOR LIVING (CURRENT) USE OF INSULIN 10/20/2016 LIZY WHITNEY Ot Z79.899 OTHER SENIOR LIVING (CURRENT) DRUG THERAPY 10/20/2016 NEW, GRACE Rivera MANUFACTURING ADVISOR-C Ot D47.2 MONOCLONAL GAMMOPATHY 10/20/2016 NEW, GRACE G. MANUFACTURING ADVISOR-C Ot D61.8 18 OTHER PANCYTOPENIA 10/20/2016 NEW, GRACE G. MANUFACTURING ADVISOR-C Ot D63.1 ANEMIA IN CHRONIC KIDNEY DISEASE 10/20/2016 NEW, GRACE Rivera MANUFACTURING ADVISOR-C Ot E11.2 9 TYPE 2 DIABETES MELLITUS W OTH DIABETIC 10/20/2016 NEW, GRACE G. MANUFACTURING ADVISOR-C Ot E44.1 MILD PROTEIN-CALORIE MALNUTRITION 10/20/2016 NEW, GRACE G. MANUFACTURING ADVISOR-C Ot E78.5 HYPERLIPIDEMIA, UNSPECIFIED 10/20/2016 NEW, GRACE G. MANUFACTURING ADVISOR-C Ot E87.3 ALKALOSIS 10/20/2016 NEW, GRACE G. MANUFACTURING ADVISOR-C Ot E87.5 HYPERKALEMIA 10/20/2016 NEW, GRACE Rivera MANUFACTURING ADVISOR-C Ot I12.9 HYPERTENSIVE CHRONIC KIDNEY DISEASE W ST 10/20/2016 NEW, GRACE G. MANUFACTURING ADVISOR-C Ot N18.3 CHRONIC KIDNEY DISEASE, STAGE 3 (MODERAT 10/20/2016 NEW, GRACE G. MANUFACTURING ADVISOR-C Ot N25.8 1 SECONDARY HYPERPARATHYROIDISM OF RENAL O 10/20/2016 NEW, GRACE G. MANUFACTURING ADVISOR-C Ot R80.9 PROTEINURIA, UNSPECIFIED 11/10/2016 LIZY WHITNEY Ot M84.371 A STRESS FRACTURE, RIGHT ANKLE, INITIAL EN 11/20/2016 ANI COX DOA K Ot E03.9 HYPOTHYROIDISM, UNSPECIFIED 11/20/2016 BROOKE DO GRACE K Ot E11.40 TYPE 2 DIABETES MELLITUS WITH DIABETIC N 11/20/2016 BROOKE DO GRACE K Ot F17.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, OTHER TOBACCO PRODU 11/20/2016 BROOKE DO GRACE K Ot F32.9 MAJOR DEPRESSIVE DISORDER, SINGLE EPISOD 11/20/2016 BROOKE GEORGE GRACE K Ot F41.9 ANXIETY DISORDER, UNSPECIFIED 11/20/2016 BROOKE DO GRACE K Ot I10 ESSENTIAL (PRIMARY) HYPERTENSION 11/20/2016 BROOKE GEORGE GRACE K Ot I25.10 ATHSCL HEART DISEASE OF [place] CORONARY 11/20/2016 BROOKE DO, GRACE K Ot I25.2 OLD MYOCARDIAL INFARCTION 11/20/2016 GRACE COX DO Ot K59.03 DRUG INDUCED CONSTIPATION 11/20/2016 GRACE COX DO Ot R11.2 NAUSEA WITH VOMITING, UNSPECIFIED 11/20/2016 GRACE COX DO Ot T50.905 A ADVERSE EFFECT OF UNSP DRUG/MEDS/BIOL CARMEN 11/20/2016 GRACE COX DO Ot Z79.4 HAND COKE DRAWER (CURRENT) USE OF INSULIN 11/20/2016 GRACE COX DO Ot Z80.9 FAMILY HISTORY OF MALIGNANT NEOPLASM, UN 11/20/2016 GRACE COX DO Ot Z82.49 FAMILY HX OF ISCHEM HEART DIS AND OTH DI 11/20/2016 GRACE COX DO Ot Z89.611 ACQUIRED ABSENCE OF RIGHT LEG ABOVE KNEE 11/20/2016 GRACE COX DO Ot Z95.1 PRESENCE OF AORTOCORONARY BYPASS GRAFT 12/07/2016 LIZY WHITNEY Ot M84.371 A STRESS FRACTURE, RIGHT ANKLE, INITIAL EN 12/07/2016 Ot 250.40 DANIEL B W RENAL MANIFEST, TYPE II OR UNSPEC 12/07/2016 Ot 263.9 PROT EIN-NADIA MALNUTR NOS 12/07/2016 Ot 276.2 ACID OSIS 12/07/2016 Ot 276.7 HYPE RPOTASSEMIA 12/07/2016 Ot 285.21 ANE DONNA IN CHRONIC KIDNEY DISEASE 12/07/2016 Ot 403.90 HYP TNSV CHR KID DIS, UNSPEC, W CHR KD ST 12/07/2016 Ot 585.3 CONTROL CLERK KATHY KIDNEY DISEASE, STAGE III (MODER 12/07/2016 Ot 588.81 SEC ONDARY HYPERPARATHYROIDISM (OF RENAL 12/07/2016 Ot 791.0 PROT EINURIA 12/07/2016 Ot 244.9 HYPO THYROIDISM NOS 12/07/2016 Ot 250.01 DANIEL B VIGNESH WO COMPL, TYPE I [JUVENILE TYP 12/07/2016 Ot 272.4 HYPE RLIPIDEMIA NEC/NOS 12/07/2016 Ot 401.9 HYPE RTENSION NOS 12/07/2016 HARRY SAMANO MENTAL MEASUREMENTS TEACHER Ot 250.00 DIAB VIGNESH WO COMPL, TYPE II OR UNSPEC TY 12/07/2016 HARRY SAMANO MENTAL MEASUREMENTS TEACHER Ot 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 MANUFACTURING ADVISOR-C Ot 263.9 PROTEIN-NADIA MALNUTR NOS 12/07/2016 GRACE CURIEL MANUFACTURING ADVISOR-C Ot 272.4 HYPERLIPIDEMIA NEC/NOS 12/07/2016 MOISÉS GRACE G. MANUFACTURING ADVISOR-C Ot 276.2 ACIDOSIS 12/07/2016 MOISÉS GRACE G. MANUFACTURING ADVISOR-C Ot 276.7 HYPERPOTASSEMIA 12/07/2016 GRACE CURIEL MANUFACTURING ADVISOR-C Ot 285.2 1 ANEMIA IN CHRONIC KIDNEY DISEASE 12/07/2016 GRACE CURIEL MANUFACTURING ADVISOR-C Ot 403.1 0 HYPTNSV CHR KID DIS, BENIGN, W CHR KD ST 12/07/2016 GRACE CURIEL MANUFACTURING ADVISOR-C Ot 585.3 CHRONIC KIDNEY DISEASE, STAGE III (MODER 12/07/2016 GRACE CURIEL MANUFACTURING ADVISOR-C Ot 588.8 1 SECONDARY HYPERPARATHYROIDISM (OF RENAL 12/07/2016 GRACE CURIEL MANUFACTURING ADVISOR-C Ot 791.0 PROTEINURIA 12/07/2016 HARRY SAMANO MENTAL MEASUREMENTS TEACHER Ot 250.00 DIAB VIGNESH WO COMPL, TYPE II OR UNSPEC TY 12/07/2016 HARRY SAMANO MENTAL MEASUREMENTS TEACHER Ot 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 MANUFACTURING ADVISOR-C Ot 250.4 0 DIAB W RENAL MANIFEST, TYPE II OR UNSPEC 12/07/2016 NEW, GRACE G. MANUFACTURING ADVISOR-C Ot 263.9 PROTEIN-NADIA MALNUTR NOS 12/07/2016 NEW, GRACE G. MANUFACTURING ADVISOR-C Ot 272.4 HYPERLIPIDEMIA NEC/NOS 12/07/2016 NEW, GRACE G. MANUFACTURING ADVISOR-C Ot 276.7 HYPERPOTASSEMIA 12/07/2016 NEW, GRACE G. MANUFACTURING ADVISOR-C Ot 285.2 1 ANEMIA IN CHRONIC KIDNEY DISEASE 12/07/2016 NEW, GRACE G. MANUFACTURING ADVISOR-C Ot 403.1 0 HYPTNSV CHR KID DIS, BENIGN, W CHR KD ST 12/07/2016 NEW, GRACE G. MANUFACTURING ADVISOR-C Ot 585.3 CHRONIC KIDNEY DISEASE, STAGE III (MODER 12/07/2016 NEW, GRACE G. MANUFACTURING ADVISOR-C Ot 588.8 1 SECONDARY HYPERPARATHYROIDISM (OF RENAL 12/07/2016 NEW, GRACE G. MANUFACTURING ADVISOR-C Ot 791.0 PROTEINURIA 12/07/2016 NEW, GRACE G. MANUFACTURING ADVISOR-C Ot 250.4 0 DIAB W RENAL MANIFEST, TYPE II OR UNSPEC 12/07/2016 NEW, GRACE G. MANUFACTURING ADVISOR-C Ot 263.9 PROTEIN-NADIA MALNUTR NOS 12/07/2016 NEW, GRACE G. MANUFACTURING ADVISOR-C Ot 272.4 HYPERLIPIDEMIA NEC/NOS 12/07/2016 NEW, GRACE G. MANUFACTURING ADVISOR-C Ot 276.3 ALKALOSIS 12/07/2016 NEW, GRACE G. MANUFACTURING ADVISOR-C Ot 276.7 HYPERPOTASSEMIA 12/07/2016 NEW, GRACE G. MANUFACTURING ADVISOR-C Ot 285.2 1 ANEMIA IN CHRONIC KIDNEY DISEASE 12/07/2016 NEW, GRACE G. MANUFACTURING ADVISOR-C Ot 403.1 0 HYPTNSV CHR KID DIS, BENIGN, W CHR KD ST 12/07/2016 NEW, GRACE G. MANUFACTURING ADVISOR-C Ot 585.3 CHRONIC KIDNEY DISEASE, STAGE III (MODER 12/07/2016 NEW, GRACE G. MANUFACTURING ADVISOR-C Ot 588.8 1 SECONDARY HYPERPARATHYROIDISM (OF RENAL 12/07/2016 NEW, GRACE CortezLatonya MANUFACTURING ADVISOR-C Ot 791.0 PROTEINURIA 12/07/2016 Ot 250.40 DANIEL B W RENAL MANIFEST, TYPE II OR UNSPEC 12/07/2016 Ot 263.9 PROT EIN-NADIA MALNUTR NOS 12/07/2016 Ot 272.4 HYPE RLIPIDEMIA NEC/NOS 12/07/2016 Ot 276.3 PINA LOSIS 12/07/2016 Ot 276.7 HYPE RPOTASSEMIA 12/07/2016 Ot 285.21 ANE DONNA IN CHRONIC KIDNEY DISEASE 12/07/2016 Ot 403.10 HYP TNSV CHR KID DIS, BENIGN, W CHR KD ST 12/07/2016 Ot 585.3 CONTROL CLERK KATHY KIDNEY DISEASE, STAGE III (MODER 12/07/2016 Ot 588.81 SEC ONDARY HYPERPARATHYROIDISM (OF RENAL 12/07/2016 Ot 791.0 PROT EINURIA 12/07/2016 Ot 244.9 HYPO THYROIDISM NOS 12/07/2016 Ot 250.92 DANIEL B W UNSPEC COMPL, TYPE II OR UNSPEC T 12/07/2016 Ot 250.40 DANIEL B W RENAL MANIFEST, TYPE II OR UNSPEC 12/07/2016 Ot 263.9 PROT EIN-NADIA MALNUTR NOS 12/07/2016 Ot 272.4 HYPE RLIPIDEMIA NEC/NOS 12/07/2016 Ot 276.3 PINA LOSIS 12/07/2016 Ot 276.7 HYPE RPOTASSEMIA 12/07/2016 Ot 285.21 ANE DONNA IN CHRONIC KIDNEY DISEASE 12/07/2016 Ot 403.10 HYP TNSV CHR KID DIS, BENIGN, W CHR KD ST 12/07/2016 Ot 585.3 CONTROL CLERK KATHY KIDNEY DISEASE, STAGE III (MODER 12/07/2016 Ot 588.81 SEC ONDARY HYPERPARATHYROIDISM (OF RENAL 12/07/2016 Ot 791.0 PROT EINURIA 12/07/2016 JT FIGUEROA MD Ot 244.8 ACQUIRED HYPOTHYROID NEC 12/07/2016 JT FIGUEROA MD Ot 246.8 DISORDERS OF THYROID NEC 12/07/2016 JT FIGUEROA MD Ot 250.93 DIAB W UNSPEC COMPL, TYPE I [JUVENILE TY 12/07/2016 LIZY WHITNEY Ot 250.00 DIAB VIGNESH WO COMPL, TYPE II OR UNSPEC TY 12/07/2016 LIZY WHITNEY Ot 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 12/07/2016 LIZY WHITNEY Ot 356.9 IDIO PERIPH NEURPTHY NOS 12/07/2016 LIZY WHITNEY Ot 585.3 CHRONIC KIDNEY DISEASE, STAGE III (MODER 12/07/2016 LIZY WHITNEY Ot V58.67 LONG-TERM (CURRENT) USE OF INSULIN 12/07/2016 LIZY WHITNEY Ot V58.69 OT MED,LT,CURRENT USE 12/07/2016 HARRY SAMANO MENTAL MEASUREMENTS TEACHER Ot D47.2 MONOCLONAL GAMMOPATHY 12/07/2016 HARRY SAMANO MENTAL MEASUREMENTS TEACHER Ot E11.9 TYPE 2 DIABETES MELLITUS WITHOUT COMPLIC 12/07/2016 HARRY SAMANO MENTAL MEASUREMENTS TEACHER Ot G60.9 HEREDITARY AND IDIOPATHIC NEUROPATHY, UN 12/07/2016 HARRY SAMANO MENTAL MEASUREMENTS TEACHER Ot N18.3 CHRONIC KIDNEY DISEASE, STAGE 3 (MODERAT 12/07/2016 HARRY SAMANO MENTAL MEASUREMENTS TEACHER Ot Z79.4 HAND COKE DRAWER (CURRENT) USE OF INSULIN 12/07/2016 HARRY SAMANO MENTAL MEASUREMENTS TEACHER Ot Z79.899 OTHER HAND COKE DRAWER (CURRENT) DRUG THERAPY 12/07/2016 GRACE CURIEL MANUFACTURING ADVISOR-C Ot D63.1 ANEMIA IN CHRONIC KIDNEY DISEASE 12/07/2016 GRACE CURIEL MANUFACTURING ADVISOR-C Ot E11.2 9 TYPE 2 DIABETES MELLITUS W OTH DIABETIC 12/07/2016 GRACE CURIEL MANUFACTURING ADVISOR-C Ot E46 UNSPECIFIED PROTEIN-CALORIE MALNUTRITION 12/07/2016 GRACE CURIEL MANUFACTURING ADVISOR-C Ot E87.5 HYPERKALEMIA 12/07/2016 GRACE CURIEL MANUFACTURING ADVISOR-C Ot I12.9 HYPERTENSIVE CHRONIC KIDNEY DISEASE W ST 12/07/2016 GRACE CURIEL MANUFACTURING ADVISOR-C Ot N18.3 CHRONIC KIDNEY DISEASE, STAGE 3 (MODERAT 12/07/2016 GRACE CURIEL MANUFACTURING ADVISOR-C Ot N25.8 1 SECONDARY HYPERPARATHYROIDISM OF RENAL O 12/07/2016 GRACE CURIEL MANUFACTURING ADVISOR-C Ot R80.9 PROTEINURIA, UNSPECIFIED 12/07/2016 CAROLINA PAYAN, JT Negrete Ot E03.8 OTHER SPECIFIED HYPOTHYROIDISM 12/07/2016 NEW, GRACE G. MANUFACTURING ADVISOR-C Ot D47.2 MONOCLONAL GAMMOPATHY 12/07/2016 NEW, GRACE G. MANUFACTURING ADVISOR-C Ot D61.8 18 OTHER PANCYTOPENIA 12/07/2016 NEW, GRACE G. MANUFACTURING ADVISOR-C Ot D63.1 ANEMIA IN CHRONIC KIDNEY DISEASE 12/07/2016 NEW, GRACE G. MANUFACTURING ADVISOR-C Ot E11.2 9 TYPE 2 DIABETES MELLITUS W OTH DIABETIC 12/07/2016 NEW, GRACE G. MANUFACTURING ADVISOR-C Ot E44.1 MILD PROTEIN-CALORIE MALNUTRITION 12/07/2016 NEW, GRACE G. MANUFACTURING ADVISOR-C Ot E78.5 HYPERLIPIDEMIA, UNSPECIFIED 12/07/2016 NEW, GRACE G. MANUFACTURING ADVISOR-C Ot E87.3 ALKALOSIS 12/07/2016 NEW, GRACE G. MANUFACTURING ADVISOR-C Ot E87.5 HYPERKALEMIA 12/07/2016 NEW, GRACE G. MANUFACTURING ADVISOR-C Ot I12.9 HYPERTENSIVE CHRONIC KIDNEY DISEASE W ST 12/07/2016 NEW, GRACE Diego. MANUFACTURING ADVISOR-C Ot N18.3 CHRONIC KIDNEY DISEASE, STAGE 3 (MODERAT 12/07/2016 NEW, GRACE G. MANUFACTURING ADVISOR-C Ot N25.8 1 SECONDARY HYPERPARATHYROIDISM OF RENAL O 12/07/2016 NEW, GRACE G. MANUFACTURING ADVISOR-C Ot R80.9 PROTEINURIA, UNSPECIFIED 12/07/2016 NEW, GRACE G. MANUFACTURING ADVISOR-C Ot D47.2 MONOCLONAL GAMMOPATHY 12/07/2016 NEW, GRACE G. MANUFACTURING ADVISOR-C Ot D61.8 18 OTHER PANCYTOPENIA 12/07/2016 NEW, GRACE G. MANUFACTURING ADVISOR-C Ot D63.1 ANEMIA IN CHRONIC KIDNEY DISEASE 12/07/2016 NEW, GRACE G. MANUFACTURING ADVISOR-C Ot E11.2 2 TYPE 2 DIABETES MELLITUS W DIABETIC CONTROL CLERK 12/07/2016 NEW, GRACE G. MANUFACTURING ADVISOR-C Ot E44.1 MILD PROTEIN-CALORIE MALNUTRITION 12/07/2016 NEW, GRACE G. MANUFACTURING ADVISOR-C Ot E78.5 HYPERLIPIDEMIA, UNSPECIFIED 12/07/2016 NEW, GRACE G. MANUFACTURING ADVISOR-C Ot E87.3 ALKALOSIS 12/07/2016 NEW, GRACE G. MANUFACTURING ADVISOR-C Ot E87.5 HYPERKALEMIA 12/07/2016 NEW, GRACE G. MANUFACTURING ADVISOR-C Ot I12.9 HYPERTENSIVE CHRONIC KIDNEY DISEASE W ST 12/07/2016 NEW, GRACE G. MANUFACTURING ADVISOR-C Ot N18.3 CHRONIC KIDNEY DISEASE, STAGE 3 (MODERAT 12/07/2016 GRACE CURIEL MANUFACTURING ADVISOR-C Ot N25.8 1 SECONDARY HYPERPARATHYROIDISM OF RENAL O 12/07/2016 GRACE CURIEL MANUFACTURING ADVISOR-C Ot R80.9 PROTEINURIA, UNSPECIFIED 12/07/2016 FROILAN DO, RAINER Yi Ot S82.851A DISPLACED TRIMALLEOLAR FRACTURE OF RIGHT 12/07/2016 FROILAN DO, RAINER Yi Ot X58.XXXA EXPOSURE TO OTHER SPECIFIED FACTORS, INI 12/07/2016 FROILAN DO, RAINER Yi Ot Y99.8 OTHER EXTERNAL CAUSE STATUS 12/07/2016 FROILAN DO, RAINER Yi Ot Z79.01 SENIOR LIVING (CURRENT) USE OF ANTICOAGULANT 12/07/2016 LIZY WHITNEY Ot M84.371 A STRESS FRACTURE, RIGHT ANKLE, INITIAL EN 12/07/2016 CAROLINA PAYAN, JT Negrete Ot E03.4 ATROPHY OF THYROID (ACQUIRED) 12/07/2016 CAROLINA PAYAN, JT Negrete Ot E10.8 TYPE 1 DIABETES MELLITUS WITH UNSPECIFIE 12/07/2016 GRACE CURIEL MANUFACTURING ADVISOR-C Ot D47.2 MONOCLONAL GAMMOPATHY 12/07/2016 GRACE CURIEL MANUFACTURING ADVISOR-C Ot D61.8 18 OTHER PANCYTOPENIA 12/07/2016 GRACE CURIEL MANUFACTURING ADVISOR-C Ot D63.1 ANEMIA IN CHRONIC KIDNEY DISEASE 12/07/2016 GRACE CURIEL MANUFACTURING ADVISOR-C Ot E11.2 9 TYPE 2 DIABETES MELLITUS W OTH DIABETIC 12/07/2016 GRACE CURIEL MANUFACTURING ADVISOR-C Ot E44.1 MILD PROTEIN-CALORIE MALNUTRITION 12/07/2016 GRACE CURIEL MANUFACTURING ADVISOR-C Ot E78.5 HYPERLIPIDEMIA, UNSPECIFIED 12/07/2016 NEWGRACE MANUFACTURING ADVISOR-C Ot E87.3 ALKALOSIS 12/07/2016 NEW GRACE GLatonya MANUFACTURING ADVISOR-C Ot E87.5 HYPERKALEMIA 12/07/2016 MOISÉS GRACE GLatonya MANUFACTURING ADVISOR-C Ot I12.9 HYPERTENSIVE CHRONIC KIDNEY DISEASE W ST 12/07/2016 GRACE CURIEL GLatonya MANUFACTURING ADVISOR-C Ot N18.3 CHRONIC KIDNEY DISEASE, STAGE 3 (MODERAT 12/07/2016 GRACE CURIEL MANUFACTURING ADVISOR-C Ot N25.8 1 SECONDARY HYPERPARATHYROIDISM OF RENAL O 12/07/2016 MOISÉSGRACE MANUFACTURING ADVISOR-C Ot R80.9 PROTEINURIA, UNSPECIFIED 12/07/2016 LIZY WHITNEY Peña Ot D47.2 MONOCLONAL GAMMOPATHY 12/07/2016 LIZY WHITNEY Peña Ot D63.8 ANEMIA IN OTHER CHRONIC DISEASES CLASSIF 12/07/2016 LIZY WHITNEY Peña Ot E11.22 TYPE 2 DIABETES MELLITUS W DIABETIC CONTROL CLERK 12/07/2016 LIZY WHITNEY Peña Ot G60.9 HEREDITARY AND IDIOPATHIC NEUROPATHY, UN 12/07/2016 LIZY WHITNEY Peña Ot N18.3 CHRONIC KIDNEY DISEASE, STAGE 3 (MODERAT 12/07/2016 LIZY WHITNEY Peña Ot Z79.4 SENIOR LIVING (CURRENT) USE OF INSULIN 12/07/2016 LIZY WHITNEY Peña Ot Z79.899 OTHER HAND COKE DRAWER (CURRENT) DRUG THERAPY 12/08/2016 Ot 250.40 DANIEL B W RENAL MANIFEST, TYPE II OR UNSPEC 12/08/2016 Ot 263.9 PROT EIN-NADIA MALNUTR NOS 12/08/2016 Ot 276.2 ACID OSIS 12/08/2016 Ot 276.7 HYPE RPOTASSEMIA 12/08/2016 Ot 285.21 ANE DONNA IN CHRONIC KIDNEY DISEASE 12/08/2016 Ot 403.90 HYP TNSV CHR KID DIS, UNSPEC, W CHR KD ST 12/08/2016 Ot 585.3 CONTROL CLERK KATHY KIDNEY DISEASE, STAGE III (MODER 12/08/2016 Ot 588.81 SEC ONDARY HYPERPARATHYROIDISM (OF RENAL 12/08/2016 Ot 791.0 PROT EINURIA 12/08/2016 Ot 244.9 HYPO THYROIDISM NOS 12/08/2016 Ot 250.01 DANIEL B VIGNESH WO COMPL, TYPE I [JUVENILE TYP 12/08/2016 Ot 272.4 HYPE RLIPIDEMIA NEC/NOS 12/08/2016 Ot 401.9 HYPE RTENSION NOS 12/08/2016 HARRY SAMANO MENTAL MEASUREMENTS TEACHER Ot 250.00 DIAB VIGNESH WO COMPL, TYPE II OR UNSPEC TY 12/08/2016 HARRY SAMANO MENTAL MEASUREMENTS TEACHER Ot 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 MANUFACTURING ADVISOR-C Ot 250.4 0 DIAB W RENAL MANIFEST, TYPE II OR UNSPEC 12/08/2016 MOISÉS GRACE G. MANUFACTURING ADVISOR-C Ot 263.9 PROTEIN-NADIA MALNUTR NOS 12/08/2016 MOISÉS GRACE G. MANUFACTURING ADVISOR-C Ot 272.4 HYPERLIPIDEMIA NEC/NOS 12/08/2016 NEW GRACE G. MANUFACTURING ADVISOR-C Ot 276.2 ACIDOSIS 12/08/2016 MOISÉS GRACE G. MANUFACTURING ADVISOR-C Ot 276.7 HYPERPOTASSEMIA 12/08/2016 MOISÉS GRACE G. MANUFACTURING ADVISOR-C Ot 285.2 1 ANEMIA IN CHRONIC KIDNEY DISEASE 12/08/2016 MOISÉS GRACE G. MANUFACTURING ADVISOR-C Ot 403.1 0 HYPTNSV CHR KID DIS, BENIGN, W CHR KD ST 12/08/2016 GRACE CURIEL G. MANUFACTURING ADVISOR-C Ot 585.3 CHRONIC KIDNEY DISEASE, STAGE III (MODER 12/08/2016 MOISÉS GRACE G. MANUFACTURING ADVISOR-C Ot 588.8 1 SECONDARY HYPERPARATHYROIDISM (OF RENAL 12/08/2016 MOISÉS GRACE G. 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 MANUFACTURING ADVISOR-C Ot 250.4 0 DIAB W RENAL MANIFEST, TYPE II OR UNSPEC 12/08/2016 NEW, GRACE G. MANUFACTURING ADVISOR-C Ot 263.9 PROTEIN-NADIA MALNUTR NOS 12/08/2016 NEW, GRACE G. MANUFACTURING ADVISOR-C Ot 272.4 HYPERLIPIDEMIA NEC/NOS 12/08/2016 NEW, GRACE G. MANUFACTURING ADVISOR-C Ot 276.7 HYPERPOTASSEMIA 12/08/2016 NEW, GRACE G. MANUFACTURING ADVISOR-C Ot 285.2 1 ANEMIA IN CHRONIC KIDNEY DISEASE 12/08/2016 NEW, RGACE G. MANUFACTURING ADVISOR-C Ot 403.1 0 HYPTNSV CHR KID DIS, BENIGN, W CHR KD ST 12/08/2016 NEW, GRACE G. MANUFACTURING ADVISOR-C Ot 585.3 CHRONIC KIDNEY DISEASE, STAGE III (MODER 12/08/2016 NEW, GRACE G. MANUFACTURING ADVISOR-C Ot 588.8 1 SECONDARY HYPERPARATHYROIDISM (OF RENAL 12/08/2016 NEW, GRACE G. MANUFACTURING ADVISOR-C Ot 791.0 PROTEINURIA 12/08/2016 NEW, GRACE G. MANUFACTURING ADVISOR-C Ot 250.4 0 DIAB W RENAL MANIFEST, TYPE II OR UNSPEC 12/08/2016 NEW, GRACE G. MANUFACTURING ADVISOR-C Ot 263.9 PROTEIN-NADIA MALNUTR NOS 12/08/2016 NEW, GRACE G. MANUFACTURING ADVISOR-C Ot 272.4 HYPERLIPIDEMIA NEC/NOS 12/08/2016 NEW, GRACE G. MANUFACTURING ADVISOR-C Ot 276.3 ALKALOSIS 12/08/2016 NEW, GRACE G. MANUFACTURING ADVISOR-C Ot 276.7 HYPERPOTASSEMIA 12/08/2016 NEW, GRACE G. MANUFACTURING ADVISOR-C Ot 285.2 1 ANEMIA IN CHRONIC KIDNEY DISEASE 12/08/2016 NEW, GRACE G. MANUFACTURING ADVISOR-C Ot 403.1 0 HYPTNSV CHR KID DIS, BENIGN, W CHR KD ST 12/08/2016 NEW, GRACE G. MANUFACTURING ADVISOR-C Ot 585.3 CHRONIC KIDNEY DISEASE, STAGE III (MODER 12/08/2016 NEW, GRACE G. MANUFACTURING ADVISOR-C Ot 588.8 1 SECONDARY HYPERPARATHYROIDISM (OF RENAL 12/08/2016 NEW, GRACE G. MANUFACTURING ADVISOR-C Ot 791.0 PROTEINURIA 12/08/2016 Ot 250.40 DANIEL B W RENAL MANIFEST, TYPE II OR UNSPEC 12/08/2016 Ot 263.9 PROT EIN-NADIA MALNUTR NOS 12/08/2016 Ot 272.4 HYPE RLIPIDEMIA NEC/NOS 12/08/2016 Ot 276.3 PINA LOSIS 12/08/2016 Ot 276.7 HYPE RPOTASSEMIA 12/08/2016 Ot 285.21 ANE DONNA IN CHRONIC KIDNEY DISEASE 12/08/2016 Ot 403.10 HYP TNSV CHR KID DIS, BENIGN, W CHR KD ST 12/08/2016 Ot 585.3 CONTROL CLERK KATHY KIDNEY DISEASE, STAGE III (MODER 12/08/2016 Ot 588.81 SEC ONDARY HYPERPARATHYROIDISM (OF RENAL 12/08/2016 Ot 791.0 PROT EINURIA 12/08/2016 Ot 244.9 HYPO THYROIDISM NOS 12/08/2016 Ot 250.92 DANIEL B W UNSPEC COMPL, TYPE II OR UNSPEC T 12/08/2016 Ot 250.40 DANIEL B W RENAL MANIFEST, TYPE II OR UNSPEC 12/08/2016 Ot 263.9 PROT EIN-NADIA MALNUTR NOS 12/08/2016 Ot 272.4 HYPE RLIPIDEMIA NEC/NOS 12/08/2016 Ot 276.3 PINA LOSIS 12/08/2016 Ot 276.7 HYPE RPOTASSEMIA 12/08/2016 Ot 285.21 ANE DONNA IN CHRONIC KIDNEY DISEASE 12/08/2016 Ot 403.10 HYP TNSV CHR KID DIS, BENIGN, W CHR KD ST 12/08/2016 Ot 585.3 CONTROL CLERK KATHY KIDNEY DISEASE, STAGE III (MODER 12/08/2016 Ot 588.81 SEC ONDARY HYPERPARATHYROIDISM (OF RENAL 12/08/2016 Ot 791.0 PROT EINURIA 12/08/2016 JT FIGUEROA MD Ot 244.8 ACQUIRED HYPOTHYROID NEC 12/08/2016 JT FIGUEROA MD Ot 246.8 DISORDERS OF THYROID NEC 12/08/2016 JT FIGUEROA MD Ot 250.93 DIAB W UNSPEC COMPL, TYPE I [JUVENILE TY 12/08/2016 LIZY WHITNEY Ot 250.00 DIAB VIGNESH WO COMPL, TYPE II OR UNSPEC TY 12/08/2016 LIZY WHITNEY Ot 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 12/08/2016 LIZY WHITNEY Ot 356.9 IDIO PERIPH NEURPTHY NOS 12/08/2016 LIZY WHITNEY Ot 585.3 CHRONIC KIDNEY DISEASE, STAGE III (MODER 12/08/2016 LIZY WHITNEY Ot V58.67 LONG-TERM (CURRENT) USE OF INSULIN 12/08/2016 LIZY WHITNEY Ot V58.69 OTH MED,LT,CURRENT USE 12/08/2016 HARRY SAMANO MENTAL MEASUREMENTS TEACHER Ot D47.2 MONOCLONAL GAMMOPATHY 12/08/2016 HARRY SAMANO MENTAL MEASUREMENTS TEACHER Ot E11.9 TYPE 2 DIABETES MELLITUS WITHOUT COMPLIC 12/08/2016 HARRY SAMANO MENTAL MEASUREMENTS TEACHER Ot G60.9 HEREDITARY AND IDIOPATHIC NEUROPATHY, UN 12/08/2016 HARRY SAMANO MENTAL MEASUREMENTS TEACHER Ot N18.3 CHRONIC KIDNEY DISEASE, STAGE 3 (MODERAT 12/08/2016 HARRY SAMANO MENTAL MEASUREMENTS TEACHER Ot Z79.4 HAND COKE DRAWER (CURRENT) USE OF INSULIN 12/08/2016 HARRY SAMANO MENTAL MEASUREMENTS TEACHER Ot Z79.899 OTHER SENIOR LIVING (CURRENT) DRUG THERAPY 12/08/2016 GRACE CURIEL MANUFACTURING ADVISOR-C Ot D63.1 ANEMIA IN CHRONIC KIDNEY DISEASE 12/08/2016 GRACE CURIEL MANUFACTURING ADVISOR-C Ot E11.2 9 TYPE 2 DIABETES MELLITUS W OTH DIABETIC 12/08/2016 GRCAE CURIEL MANUFACTURING ADVISOR-C Ot E46 UNSPECIFIED PROTEIN-CALORIE MALNUTRITION 12/08/2016 GRACE CURIEL MANUFACTURING ADVISOR-C Ot E87.5 HYPERKALEMIA 12/08/2016 GRACE CURIEL MANUFACTURING ADVISOR-C Ot I12.9 HYPERTENSIVE CHRONIC KIDNEY DISEASE W ST 12/08/2016 GRACE CURIEL MANUFACTURING ADVISOR-C Ot N18.3 CHRONIC KIDNEY DISEASE, STAGE 3 (MODERAT 12/08/2016 MOISÉS GRACE GLatonya MANUFACTURING ADVISOR-C Ot N25.8 1 SECONDARY HYPERPARATHYROIDISM OF RENAL O 12/08/2016 GRACE CURIEL MANUFACTURING ADVISOR-C Ot R80.9 PROTEINURIA, UNSPECIFIED 12/08/2016 CAROLINA PAYAN, JT Negrete Ot E03.8 OTHER SPECIFIED HYPOTHYROIDISM 12/08/2016 GRACE CURIEL MANUFACTURING ADVISOR-C Ot D47.2 MONOCLONAL GAMMOPATHY 12/08/2016 GRACE CURIEL MANUFACTURING ADVISOR-C Ot D61.8 18 OTHER PANCYTOPENIA 12/08/2016 GRACE CURIEL G. MANUFACTURING ADVISOR-C Ot D63.1 ANEMIA IN CHRONIC KIDNEY DISEASE 12/08/2016 NEW, GRACE G. MANUFACTURING ADVISOR-C Ot E11.2 9 TYPE 2 DIABETES MELLITUS W OTH DIABETIC 12/08/2016 NEW, GRACE G. MANUFACTURING ADVISOR-C Ot E44.1 MILD PROTEIN-CALORIE MALNUTRITION 12/08/2016 NEW, GRACE G. MANUFACTURING ADVISOR-C Ot E78.5 HYPERLIPIDEMIA, UNSPECIFIED 12/08/2016 NEW, GRACE G. MANUFACTURING ADVISOR-C Ot E87.3 ALKALOSIS 12/08/2016 NEW, GRACE G. MANUFACTURING ADVISOR-C Ot E87.5 HYPERKALEMIA 12/08/2016 NEW, GRACE G. MANUFACTURING ADVISOR-C Ot I12.9 HYPERTENSIVE CHRONIC KIDNEY DISEASE W ST 12/08/2016 NEW, GRACE G. MANUFACTURING ADVISOR-C Ot N18.3 CHRONIC KIDNEY DISEASE, STAGE 3 (MODERAT 12/08/2016 NEW, GRACE G. MANUFACTURING ADVISOR-C Ot N25.8 1 SECONDARY HYPERPARATHYROIDISM OF RENAL O 12/08/2016 NEW, GRACE G. MANUFACTURING ADVISOR-C Ot R80.9 PROTEINURIA, UNSPECIFIED 12/08/2016 NEW, RGACE G. MANUFACTURING ADVISOR-C Ot D47.2 MONOCLONAL GAMMOPATHY 12/08/2016 NEW, GRACE G. MANUFACTURING ADVISOR-C Ot D61.8 18 OTHER PANCYTOPENIA 12/08/2016 NEW, RGACE G. MANUFACTURING ADVISOR-C Ot D63.1 ANEMIA IN CHRONIC KIDNEY DISEASE 12/08/2016 NEW, GRACE G. MANUFACTURING ADVISOR-C Ot E11.2 2 TYPE 2 DIABETES MELLITUS W DIABETIC CONTROL CLERK 12/08/2016 NEW, GRACE G. MANUFACTURING ADVISOR-C Ot E44.1 MILD PROTEIN-CALORIE MALNUTRITION 12/08/2016 NEW, GRACE G. MANUFACTURING ADVISOR-C Ot E78.5 HYPERLIPIDEMIA, UNSPECIFIED 12/08/2016 NEW, GRACE G. MANUFACTURING ADVISOR-C Ot E87.3 ALKALOSIS 12/08/2016 NEW, GRACE G. MANUFACTURING ADVISOR-C Ot E87.5 HYPERKALEMIA 12/08/2016 NEW, GRACE G. MANUFACTURING ADVISOR-C Ot I12.9 HYPERTENSIVE CHRONIC KIDNEY DISEASE W ST 12/08/2016 NEW, GRACE G. MANUFACTURING ADVISOR-C Ot N18.3 CHRONIC KIDNEY DISEASE, STAGE 3 (MODERAT 12/08/2016 NEW, GRACE G. MANUFACTURING ADVISOR-C Ot N25.8 1 SECONDARY HYPERPARATHYROIDISM OF RENAL O 12/08/2016 NEW, GRACE DiegoLatonya MANUFACTURING ADVISOR-C Ot R80.9 PROTEINURIA, UNSPECIFIED 12/08/2016 FROILAN DO, RAINER Yi Ot S82.851A DISPLACED TRIMALLEOLAR FRACTURE OF RIGHT 12/08/2016 RAINER MCGOVERN DO Ot X58.XXXA EXPOSURE TO OTHER SPECIFIED FACTORS, INI 12/08/2016 FROILAN RAINER GEORGE Ot Y99.8 OTHER EXTERNAL CAUSE STATUS 12/08/2016 RAINER MCGOVERN DO Ot Z79.01 SENIOR LIVING (CURRENT) USE OF ANTICOAGULANT 12/08/2016 LIZY WHITNEY Ot M84.371 A STRESS FRACTURE, RIGHT ANKLE, INITIAL EN 12/08/2016 CAROLINA PAYAN, JT Negrete Ot E03.4 ATROPHY OF THYROID (ACQUIRED) 12/08/2016 CAROLINA PAYAN, JT Negrete Ot E10.8 TYPE 1 DIABETES MELLITUS WITH UNSPECIFIE 12/08/2016 NEWGRACE MANUFACTURING ADVISOR-C Ot D47.2 MONOCLONAL GAMMOPATHY 12/08/2016 GRACE CURIEL GLatonya MANUFACTURING ADVISOR-C Ot D61.8 18 OTHER PANCYTOPENIA 12/08/2016 MOISÉS GRACE G. MANUFACTURING ADVISOR-C Ot D63.1 ANEMIA IN CHRONIC KIDNEY DISEASE 12/08/2016 NEW GRACE G. MANUFACTURING ADVISOR-C Ot E11.2 9 TYPE 2 DIABETES MELLITUS W OTH DIABETIC 12/08/2016 ANI CURIELA G. MANUFACTURING ADVISOR-C Ot E44.1 MILD PROTEIN-[place] MALNUTRITION 12/08/2016 NEWANIA G. MANUFACTURING ADVISOR-C Ot E78.5 HYPERLIPIDEMIA, UNSPECIFIED 12/08/2016 NEWGRACE GLatonya MANUFACTURING ADVISOR-C Ot E87.3 ALKALOSIS 12/08/2016 NEW GRACE G. MANUFACTURING ADVISOR-C Ot E87.5 HYPERKALEMIA 12/08/2016 NEW GRACE G. MANUFACTURING ADVISOR-C Ot I12.9 HYPERTENSIVE CHRONIC KIDNEY DISEASE W ST 12/08/2016 NEWGRACE G. MANUFACTURING ADVISOR-C Ot N18.3 CHRONIC KIDNEY DISEASE, STAGE 3 (MODERAT 12/08/2016 MOISÉS GRACE GLatonya MANUFACTURING ADVISOR-C Ot N25.8 1 SECONDARY HYPERPARATHYROIDISM OF RENAL O 12/08/2016 GRACE CURIEL MANUFACTURING ADVISOR-C Ot R80.9 PROTEINURIA, UNSPECIFIED 12/08/2016 LIZY WHITNEY Ot D47.2 MONOCLONAL GAMMOPATHY 12/08/2016 DEVONTE LIZY N Ot D63.8 ANEMIA IN OTHER CHRONIC DISEASES CLASSIF 12/08/2016 DEVONTE LIZY N Ot E11.22 TYPE 2 DIABETES MELLITUS W DIABETIC CONTROL CLERK 12/08/2016 DEVONTE RONENREGINA N Ot G60.9 HEREDITARY AND IDIOPATHIC NEUROPATHY, UN 12/08/2016 DEVONTE RONENREGINA N Ot N18.3 CHRONIC KIDNEY DISEASE, STAGE 3 (MODERAT 12/08/2016 DEVONTE, LIZY N Ot Z79.4 SENIOR LIVING (CURRENT) USE OF INSULIN 12/08/2016 DEVONTE, LIZY N Ot Z79.899 OTHER HAND COKE DRAWER (CURRENT) DRUG THERAPY 12/09/2016 DEVONTE, LIZY N Ot M84.363 A STRESS FRACTURE, RIGHT FIBULA, INIT ENCN 12/09/2016 DEVONTE LIZY N Ot M84.371 A STRESS FRACTURE, RIGHT ANKLE, INITIAL EN 12/09/2016 DEVONTE, LIZY N Ot M85.88 OTH DISRD OF BONE DENSITY AND STRUCTURE, 12/14/2016 DEVONTELIZY N Ot D47.2 MONOCLONAL GAMMOPATHY 12/14/2016 DEVONTERONENREGINA N Ot D63.8 ANEMIA IN OTHER CHRONIC DISEASES CLASSIF 12/14/2016 DEVONTE, LIZY N Ot E11.22 TYPE 2 DIABETES MELLITUS W DIABETIC CONTROL CLERK 12/14/2016 DEVONTE RONENREGINA N Ot G60.9 HEREDITARY AND IDIOPATHIC NEUROPATHY, UN 12/14/2016 DEVONTE RONENREGINA N Ot N18.3 CHRONIC KIDNEY DISEASE, STAGE 3 (MODERAT 12/14/2016 DEVONTELIZY N Ot Z79.4 HAND COKE DRAWER (CURRENT) USE OF INSULIN 12/14/2016 DEVONTELIZY N Ot Z79.899 OTHER HAND COKE DRAWER (CURRENT) DRUG THERAPY 12/16/2016 DEVONTELIZY N Ot D47.2 MONOCLONAL GAMMOPATHY 12/16/2016 DEVONTELIZY N Ot D61.818 OTHER PANCYTOPENIA 12/16/2016 DEVONTELIZY N Ot D63.8 ANEMIA IN OTHER CHRONIC DISEASES CLASSIF 12/16/2016 DEVONTELIZY N Ot E03.9 HYPOTHYROIDISM, UNSPECIFIED 12/16/2016 DEVONTELIZY N Ot E11.22 TYPE 2 DIABETES MELLITUS W DIABETIC CONTROL CLERK 12/16/2016 DEVONTELIZY N Ot E78.00 PURE HYPERCHOLESTEROLEMIA, UNSPECIFIED 12/16/2016 LIZY WHITNEY N Ot G60.9 HEREDITARY AND IDIOPATHIC NEUROPATHY, UN 12/16/2016 LIZY WHITNEY N Ot I25.10 ATHSCL HEART DISEASE OF [place] CORONARY 12/16/2016 LIZY WHITNEY N Ot I25.2 OLD MYOCARDIAL INFARCTION 12/16/2016 LIZY WHITNEY N Ot M85.80 OTH DISRD OF BONE DENSITY AND STRUCTURE, 12/16/2016 LIZY WHITNEY N Ot N18.3 CHRONIC KIDNEY DISEASE, STAGE 3 (MODERAT 12/16/2016 LIZY WHITNEY N Ot Z79.4 HAND COKE DRAWER (CURRENT) USE OF INSULIN 12/16/2016 DEVONTE LIZY N Ot Z79.899 OTHER SENIOR LIVING (CURRENT) DRUG THERAPY 12/16/2016 DEVONTE LIZY N Ot Z89.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 12/31/2016 LIZY WHITNEY N Ot D47.2 MONOCLONAL GAMMOPATHY 12/31/2016 DEVONTE LIZY N Ot D61.818 OTHER PANCYTOPENIA 12/31/2016 LIZY WHITNEY N Ot D63.8 ANEMIA IN OTHER CHRONIC DISEASES CLASSIF 12/31/2016 LIZY WHITNEY N Ot E03.9 HYPOTHYROIDISM, UNSPECIFIED 12/31/2016 LIZY WHITNEY N Ot E11.22 TYPE 2 DIABETES MELLITUS W DIABETIC CONTROL CLERK 12/31/2016 LIZY WHITNEY N Ot E78.00 PURE HYPERCHOLESTEROLEMIA, UNSPECIFIED 12/31/2016 LIZY WHITNEY N Ot G60.9 HEREDITARY AND IDIOPATHIC NEUROPATHY, UN 12/31/2016 LIZY WHITNEY N Ot I25.10 ATHSCL HEART DISEASE OF [place] CORONARY 12/31/2016 LIZY WHITNEY N Ot I25.2 OLD MYOCARDIAL INFARCTION 12/31/2016 LIZY WHITNEY N Ot M85.80 OTH DISRD OF BONE DENSITY AND STRUCTURE, 12/31/2016 LIZY WHITNEY N Ot N18.3 CHRONIC KIDNEY DISEASE, STAGE 3 (MODERAT 12/31/2016 DEVONTE RONENREGINA N Ot Z79.4 SENIOR LIVING (CURRENT) USE OF INSULIN 12/31/2016 DEVONTE LIZY N Ot Z79.899 OTHER SENIOR LIVING (CURRENT) DRUG THERAPY 12/31/2016 DEVONTELIZY N Ot Z89.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 01/06/2017 LIZY WHITNEY N Ot D47.2 MONOCLONAL GAMMOPATHY 01/06/2017 LIZY WHITNEY N Ot D61.818 OTHER PANCYTOPENIA 01/06/2017 LIZY WHITNEY N Ot D63.8 ANEMIA IN OTHER CHRONIC DISEASES CLASSIF 01/06/2017 LIZY WHITNEY N Ot E03.9 HYPOTHYROIDISM, UNSPECIFIED 01/06/2017 LIZY WHITNEY N Ot E11.22 TYPE 2 DIABETES MELLITUS W DIABETIC CONTROL CLERK 01/06/2017 LIZY WHITNEY N Ot E78.00 PURE HYPERCHOLESTEROLEMIA, UNSPECIFIED 01/06/2017 LIZY WHITNEY N Ot G60.9 HEREDITARY AND IDIOPATHIC NEUROPATHY, UN 01/06/2017 LIZY WHITNEY Peña Ot I25.10 ATHSCL HEART DISEASE OF [place] CORONARY 01/06/2017 LIZY WHITNEY N Ot I25.2 OLD MYOCARDIAL INFARCTION 01/06/2017 LIZY WHITNEY N Ot M85.80 OTH DISRD OF BONE DENSITY AND STRUCTURE, 01/06/2017 LIZY WHITNEY Peña Ot N18.3 CHRONIC KIDNEY DISEASE, STAGE 3 (MODERAT 01/06/2017 LIZY WHITNEY N Ot Z79.4 HAND COKE DRAWER (CURRENT) USE OF INSULIN 01/06/2017 LIZY WHITNEY N Ot Z79.899 OTHER SENIOR LIVING (CURRENT) DRUG THERAPY 01/06/2017 LIZY WHITNEY N Ot Z89.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 01/10/2017 LIZY WHITNEY N Ot M84.363 A STRESS FRACTURE, RIGHT FIBULA, INIT ENCN 01/10/2017 LIZY WHITNEY N Ot M84.371 A STRESS FRACTURE, RIGHT ANKLE, INITIAL EN 01/10/2017 LIZY WHITNEY N Ot M85.88 OTH DISRD OF BONE DENSITY AND STRUCTURE, 04/20/2017 JT FIGUEROA MD Ot E03.4 ATROPHY OF THYROID (ACQUIRED) 04/20/2017 JT FIGUEROA MD Ot E10.8 TYPE 1 DIABETES MELLITUS WITH UNSPECIFIE 05/03/2017 JT FIGUEROA MD Ot E03.4 ATROPHY OF THYROID (ACQUIRED) 05/03/2017 JT FIGUEROA MD Ot E10.8 TYPE 1 DIABETES MELLITUS WITH UNSPECIFIE 05/15/2017 NEW, GRACE G. MANUFACTURING ADVISOR-C Ot D47.2 MONOCLONAL GAMMOPATHY 05/15/2017 NEW, GRACE G. MANUFACTURING ADVISOR-C Ot D61.8 18 OTHER PANCYTOPENIA 05/15/2017 NEW, GRACE G. MANUFACTURING ADVISOR-C Ot D63.1 ANEMIA IN CHRONIC KIDNEY DISEASE 05/15/2017 NEW, GRACE G. MANUFACTURING ADVISOR-C Ot E11.2 2 TYPE 2 DIABETES MELLITUS W DIABETIC CONTROL CLERK 05/15/2017 NEW, GRACE G. MANUFACTURING ADVISOR-C Ot E44.1 MILD PROTEIN-CALORIE MALNUTRITION 05/15/2017 NEW, GRACE G. MANUFACTURING ADVISOR-C Ot E78.5 HYPERLIPIDEMIA, UNSPECIFIED 05/15/2017 NEW, GRACE G. MANUFACTURING ADVISOR-C Ot E87.3 ALKALOSIS 05/15/2017 NEW, GRACE G. MANUFACTURING ADVISOR-C Ot E87.5 HYPERKALEMIA 05/15/2017 NEW, GRACE G. MANUFACTURING ADVISOR-C Ot I12.9 HYPERTENSIVE CHRONIC KIDNEY DISEASE W ST 05/15/2017 NEW, GRACE G. MANUFACTURING ADVISOR-C Ot N18.3 CHRONIC KIDNEY DISEASE, STAGE 3 (MODERAT 05/15/2017 NEW, GRACE G. MANUFACTURING ADVISOR-C Ot N25.8 1 SECONDARY HYPERPARATHYROIDISM OF RENAL O 05/15/2017 NEW, GRACE G. MANUFACTURING ADVISOR-C Ot R80.9 PROTEINURIA, UNSPECIFIED 06/13/2017 NEW, GRACE G. MANUFACTURING ADVISOR-C Ot D47.2 MONOCLONAL GAMMOPATHY 06/13/2017 NEW, GRACE G. MANUFACTURING ADVISOR-C Ot D61.8 18 OTHER PANCYTOPENIA 06/13/2017 NEW, GRACE G. MANUFACTURING ADVISOR-C Ot D63.1 ANEMIA IN CHRONIC KIDNEY DISEASE 06/13/2017 NEW, GRACE G. MANUFACTURING ADVISOR-C Ot E03.4 ATROPHY OF THYROID (ACQUIRED) 06/13/2017 NEW, GRACE G. MANUFACTURING ADVISOR-C Ot E11.2 2 TYPE 2 DIABETES MELLITUS W DIABETIC CONTROL CLERK 06/13/2017 NEW, GRACE G. MANUFACTURING ADVISOR-C Ot E44.1 MILD PROTEIN-CALORIE MALNUTRITION 06/13/2017 NEW, GRACE G. MANUFACTURING ADVISOR-C Ot E78.5 HYPERLIPIDEMIA, UNSPECIFIED 06/13/2017 NEW, GRACE G. MANUFACTURING ADVISOR-C Ot E87.3 ALKALOSIS 06/13/2017 NEW, GRACE G. MANUFACTURING ADVISOR-C Ot E87.5 HYPERKALEMIA 06/13/2017 GRACE CURIEL MANUFACTURING ADVISOR-C Ot I12.9 HYPERTENSIVE CHRONIC KIDNEY DISEASE W ST 06/13/2017 GRACE CURIEL MANUFACTURING ADVISOR-C Ot N18.3 CHRONIC KIDNEY DISEASE, STAGE 3 (MODERAT 06/13/2017 GRACE CURIEL MANUFACTURING ADVISOR-C Ot N25.8 1 SECONDARY HYPERPARATHYROIDISM OF RENAL O 06/13/2017 GRACE CURIEL MANUFACTURING ADVISOR-C Ot R80.9 PROTEINURIA, UNSPECIFIED 07/26/2017 JT FIGUEROA MD Ot 244.8 ACQUIRED HYPOTHYROID NEC 07/26/2017 JT FIGUEROA MD Ot 246.8 DISORDERS OF THYROID NEC 07/26/2017 JT FIGUEROA MD Ot 250.93 DIAB W UNSPEC COMPL, TYPE I [JUVENILE TY 07/26/2017 LIZY WHITNEY Ot 250.00 DIAB VIGNESH WO COMPL, TYPE II OR UNSPEC TY 07/26/2017 LIZY WHITNEY N Ot 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 07/26/2017 LIZY WHITNEY Ot 356.9 IDIO PERIPH NEURPTHY NOS 07/26/2017 LIZY WHITNEY N Ot 585.3 CHRONIC KIDNEY DISEASE, STAGE III (MODER 07/26/2017 LIZY WHITNEY Ot V58.67 LONG-TERM (CURRENT) USE OF INSULIN 07/26/2017 LIZY WHITNEY Ot V58.69 OTH MED,LT,CURRENT USE 07/26/2017 HARRY SAMANO MENTAL MEASUREMENTS TEACHER Ot D47.2 MONOCLONAL GAMMOPATHY 07/26/2017 HARRY SAMANO MENTAL MEASUREMENTS TEACHER Ot E11.9 TYPE 2 DIABETES MELLITUS WITHOUT COMPLIC 07/26/2017 HARRY SAMANO MENTAL MEASUREMENTS TEACHER Ot G60.9 HEREDITARY AND IDIOPATHIC NEUROPATHY, UN 07/26/2017 HARRY SAMANO MENTAL MEASUREMENTS TEACHER Ot N18.3 CHRONIC KIDNEY DISEASE, STAGE 3 (MODERAT 07/26/2017 HARRY SAMANO MENTAL MEASUREMENTS TEACHER Ot Z79.4 SENIOR LIVING (CURRENT) USE OF INSULIN 07/26/2017 HARRY SAMANO MENTAL MEASUREMENTS TEACHER Ot Z79.899 OTHER HAND COKE DRAWER (CURRENT) DRUG THERAPY 07/26/2017 JT FIGUEROA MD Ot E03.8 OTHER SPECIFIED HYPOTHYROIDISM 07/26/2017 NEW, GRACE G. MANUFACTURING ADVISOR-C Ot D47.2 MONOCLONAL GAMMOPATHY 07/26/2017 NEW, GRACE G. MANUFACTURING ADVISOR-C Ot D61.8 18 OTHER PANCYTOPENIA 07/26/2017 NEW, GRACE G. MANUFACTURING ADVISOR-C Ot D63.1 ANEMIA IN CHRONIC KIDNEY DISEASE 07/26/2017 NEW, GRACE G. MANUFACTURING ADVISOR-C Ot E11.2 9 TYPE 2 DIABETES MELLITUS W OTH DIABETIC 07/26/2017 NEW, GRACE G. MANUFACTURING ADVISOR-C Ot E44.1 MILD PROTEIN-CALORIE MALNUTRITION 07/26/2017 NEW, GRACE G. MANUFACTURING ADVISOR-C Ot E78.5 HYPERLIPIDEMIA, UNSPECIFIED 07/26/2017 NEW, GRACE G. MANUFACTURING ADVISOR-C Ot E87.3 ALKALOSIS 07/26/2017 NEW, GRACE G. MANUFACTURING ADVISOR-C Ot E87.5 HYPERKALEMIA 07/26/2017 NEW, GRACE G. MANUFACTURING ADVISOR-C Ot I12.9 HYPERTENSIVE CHRONIC KIDNEY DISEASE W ST 07/26/2017 NEW, GRACE G. MANUFACTURING ADVISOR-C Ot N18.3 CHRONIC KIDNEY DISEASE, STAGE 3 (MODERAT 07/26/2017 NEW, GRACE G. MANUFACTURING ADVISOR-C Ot N25.8 1 SECONDARY HYPERPARATHYROIDISM OF RENAL O 07/26/2017 NEW, GRACE G. MANUFACTURING ADVISOR-C Ot R80.9 PROTEINURIA, UNSPECIFIED 07/26/2017 NEW, GRACE G. MANUFACTURING ADVISOR-C Ot D47.2 MONOCLONAL GAMMOPATHY 07/26/2017 NEW, GRACE G. MANUFACTURING ADVISOR-C Ot D61.8 18 OTHER PANCYTOPENIA 07/26/2017 NEW, GRACE G. MANUFACTURING ADVISOR-C Ot D63.1 ANEMIA IN CHRONIC KIDNEY DISEASE 07/26/2017 NEW, GRACE G. MANUFACTURING ADVISOR-C Ot E11.2 2 TYPE 2 DIABETES MELLITUS W DIABETIC CONTROL CLERK 07/26/2017 NEW, GRACE G. MANUFACTURING ADVISOR-C Ot E44.1 MILD PROTEIN-[place]OR[place] MALNUTRITION 07/26/2017 NEW, GRACE G. MANUFACTURING ADVISOR-C Ot E78.5 HYPERLIPIDEMIA, UNSPECIFIED 07/26/2017 NEW, GRACE G. MANUFACTURING ADVISOR-C Ot E87.3 ALKALOSIS 07/26/2017 NEW, GRACE G. MANUFACTURING ADVISOR-C Ot E87.5 HYPERKALEMIA 07/26/2017 NEW, GRACE G. MANUFACTURING ADVISOR-C Ot I12.9 HYPERTENSIVE CHRONIC KIDNEY DISEASE W ST 07/26/2017 NEW, GRACE G. MANUFACTURING ADVISOR-C Ot N18.3 CHRONIC KIDNEY DISEASE, STAGE 3 (MODERAT 07/26/2017 NEWGRACE MANUFACTURING ADVISOR-C Ot N25.8 1 SECONDARY HYPERPARATHYROIDISM OF RENAL O 07/26/2017 GRACE CURIEL MANUFACTURING ADVISOR-C Ot R80.9 PROTEINURIA, UNSPECIFIED 07/26/2017 FROILAN GEORGE, RAINER Yi Ot S82.851A DISPLACED TRIMALLEOLAR FRACTURE OF RIGHT 07/26/2017 RAINER MCGOVERN DO Ot X58.XXXA EXPOSURE TO OTHER SPECIFIED FACTORS, INI 07/26/2017 FROILAN DO, RAINER Yi Ot Y99.8 OTHER EXTERNAL CAUSE STATUS 07/26/2017 FROILAN , RAINER Yi Ot Z79.01 HAND COKE DRAWER (CURRENT) USE OF ANTICOAGULANT 07/26/2017 LIZY WHITNEY Ot M84.363 A STRESS FRACTURE, RIGHT FIBULA, INIT ENCN 07/26/2017 LIZY WHITNEY Ot M84.371 A STRESS FRACTURE, RIGHT ANKLE, INITIAL EN 07/26/2017 LIZY WHITNEY Ot M85.88 OT DISRD OF BONE DENSITY AND STRUCTURE, 07/26/2017 JT FIGUEROA MD Ot E03.4 ATROPHY OF THYROID (ACQUIRED) 07/26/2017 JT FIGUEROA MD Ot E10.8 TYPE 1 DIABETES MELLITUS WITH UNSPECIFIE 07/26/2017 GRACE CURIEL MANUFACTURING ADVISOR-C Ot D47.2 MONOCLONAL GAMMOPATHY 07/26/2017 GRACE CURIEL MANUFACTURING ADVISOR-C Ot D61.8 18 OTHER PANCYTOPENIA 07/26/2017 GRACE CURIEL MANUFACTURING ADVISOR-C Ot D63.1 ANEMIA IN CHRONIC KIDNEY DISEASE 07/26/2017 GRACE CURIEL MANUFACTURING ADVISOR-C Ot E11.2 9 TYPE 2 DIABETES MELLITUS W OTH DIABETIC 07/26/2017 GRACE CURIEL MANUFACTURING ADVISOR-C Ot E44.1 MILD PROTEIN-[place]OR[place] MALNUTRITION 07/26/2017 GRACE CURIEL MANUFACTURING ADVISOR-C Ot E78.5 HYPERLIPIDEMIA, UNSPECIFIED 07/26/2017 GRACE CURIEL MANUFACTURING ADVISOR-C Ot E87.3 ALKALOSIS 07/26/2017 GRACE CURIEL MANUFACTURING ADVISOR-C Ot E87.5 HYPERKALEMIA 07/26/2017 GRACE CURIEL MANUFACTURING ADVISOR-C Ot I12.9 HYPERTENSIVE CHRONIC KIDNEY DISEASE W ST 07/26/2017 NEW, GRACE Rivera MANUFACTURING ADVISOR-C Ot N18.3 CHRONIC KIDNEY DISEASE, STAGE 3 (MODERAT 07/26/2017 NEW, GRACE Rivera MANUFACTURING ADVISOR-C Ot N25.8 1 SECONDARY HYPERPARATHYROIDISM OF RENAL O 07/26/2017 NEW, GRACE Rivera MANUFACTURING ADVISOR-C Ot R80.9 PROTEINURIA, UNSPECIFIED 07/26/2017 JT FIGUEROA MD Ot E03.4 ATROPHY OF THYROID (ACQUIRED) 07/26/2017 JT FIGUEROA MD Ot E10.8 TYPE 1 DIABETES MELLITUS WITH UNSPECIFIE 07/26/2017 NEW, GRACE Cortez. MANUFACTURING ADVISOR-C Ot D47.2 MONOCLONAL GAMMOPATHY 07/26/2017 NEW, GRACE Cortez. MANUFACTURING ADVISOR-C Ot D61.8 18 OTHER PANCYTOPENIA 07/26/2017 NEW, GRACE Cortez. MANUFACTURING ADVISOR-C Ot D63.1 ANEMIA IN CHRONIC KIDNEY DISEASE 07/26/2017 NEW, GRACE Cortez. MANUFACTURING ADVISOR-C Ot E03.4 ATROPHY OF THYROID (ACQUIRED) 07/26/2017 NEW, GRACE Cortez. MANUFACTURING ADVISOR-C Ot E11.2 2 TYPE 2 DIABETES MELLITUS W DIABETIC CONTROL CLERK 07/26/2017 NEW, GRACE Cortez. MANUFACTURING ADVISOR-C Ot E44.1 MILD PROTEIN-[place]ORIE MALNUTRITION 07/26/2017 NEW, GRACE Cortez. MANUFACTURING ADVISOR-C Ot E78.5 HYPERLIPIDEMIA, UNSPECIFIED 07/26/2017 NEW, GRACE Cortez. MANUFACTURING ADVISOR-C Ot E87.3 ALKALOSIS 07/26/2017 NEW, GRACE G. MANUFACTURING ADVISOR-C Ot E87.5 HYPERKALEMIA 07/26/2017 NEW, GRACE Cortez. MANUFACTURING ADVISOR-C Ot I12.9 HYPERTENSIVE CHRONIC KIDNEY DISEASE W ST 07/26/2017 NEW, GRACE Cortez. MANUFACTURING ADVISOR-C Ot N18.3 CHRONIC KIDNEY DISEASE, STAGE 3 (MODERAT 07/26/2017 NEW, GRACE G. MANUFACTURING ADVISOR-C Ot N25.8 1 SECONDARY HYPERPARATHYROIDISM OF RENAL O 07/26/2017 NEW, GRACE Cortez. MANUFACTURING ADVISOR-C Ot R80.9 PROTEINURIA, UNSPECIFIED 08/10/2017 DUYEN PAYAN, SKYLAR R Ot E78. 2 MIXED HYPERLIPIDEMIA 08/30/2017 DYUEN PAYAN, SKYLAR R Ot E78. 2 MIXED HYPERLIPIDEMIA 09/22/2017 EDWIN KUMAR MD Ot D47.2 MONOCLONAL GAMMOPATHY 09/22/2017 EDWIN KUMAR MD Ot D61.818 OTHER PANCYTOPENIA 09/22/2017 EDWIN KUMAR MD Ot D63.8 ANEMIA IN OTHER CHRONIC DISEASES CLASSIF 09/22/2017 EDWIN KUMAR MD Ot E03.9 HYPOTHYROIDISM, UNSPECIFIED 09/22/2017 EDWIN KUMAR MD Ot E11.22 TYPE 2 DIABETES MELLITUS W DIABETIC CONTROL CLERK 09/22/2017 EDWIN KUMAR MD Ot E78.00 PURE HYPERCHOLESTEROLEMIA, UNSPECIFIED 09/22/2017 EDWIN KUMAR MD Ot G60.9 HEREDITARY AND IDIOPATHIC NEUROPATHY, UN 09/22/2017 EDWIN KUMAR MD Ot I25.10 ATHSCL HEART DISEASE OF [place] CORONARY 09/22/2017 EDWIN KUMAR MD Ot I25.2 OLD MYOCARDIAL INFARCTION 09/22/2017 EDWIN KUMAR MD Ot M85.80 OTH DISRD OF BONE DENSITY AND STRUCTURE, 09/22/2017 EDWIN KUMAR MD Ot N18.3 CHRONIC KIDNEY DISEASE, STAGE 3 (MODERAT 09/22/2017 EDWIN KUMAR MD Ot Z79.4 SENIOR LIVING (CURRENT) USE OF INSULIN 09/22/2017 EDWIN KUMAR MD Ot Z79.899 OTHER SENIOR LIVING (CURRENT) DRUG THERAPY 09/22/2017 EDWIN KUMAR MD Ot Z89.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 10/12/2017 EDWIN KUMAR MD Ot D47.2 MONOCLONAL GAMMOPATHY 10/12/2017 EDWIN KUMAR MD Ot D61.818 OTHER PANCYTOPENIA 10/12/2017 EDWIN KUMAR MD Ot D63.8 ANEMIA IN OTHER CHRONIC DISEASES CLASSIF 10/12/2017 EDWIN KUMAR MD Ot E03.9 HYPOTHYROIDISM, UNSPECIFIED 10/12/2017 EDWIN KUMAR MD Ot E11.22 TYPE 2 DIABETES MELLITUS W DIABETIC CONTROL CLERK 10/12/2017 EDWIN KUMAR MD Ot E78.00 PURE HYPERCHOLESTEROLEMIA, UNSPECIFIED 10/12/2017 EDWIN KUMAR MD Ot G60.9 HEREDITARY AND IDIOPATHIC NEUROPATHY, UN 10/12/2017 EDWIN KUMAR MD Ot I25.10 ATHSCL HEART DISEASE OF [place] CORONARY 10/12/2017 EDWIN KUMAR MD Ot I25.2 OLD MYOCARDIAL INFARCTION 10/12/2017 EDWIN KUMAR MD Ot M85.80 OTH DISRD OF BONE DENSITY AND STRUCTURE, 10/12/2017 EDWIN KUMAR MD Ot N18.3 CHRONIC KIDNEY DISEASE, STAGE 3 (MODERAT 10/12/2017 EDWIN KUMAR MD, Ot Z79.4 HAND COKE DRAWER (CURRENT) USE OF INSULIN 10/12/2017 EDWIN KUMAR MD, Ot Z79.899 OTHER SENIOR LIVING (CURRENT) DRUG THERAPY 10/12/2017 EDWIN KUMAR MD, Ot Z89.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 11/07/2017 EDWIN KUMAR MD Ot D47.2 MONOCLONAL GAMMOPATHY 11/07/2017 EDWIN KUMAR MD, Ot D61.818 OTHER PANCYTOPENIA 11/07/2017 EDWIN KUMAR MD, Ot D63.8 ANEMIA IN OTHER CHRONIC DISEASES CLASSIF 11/07/2017 EDWIN KUMAR MD, Ot E03.9 HYPOTHYROIDISM, UNSPECIFIED 11/07/2017 EDWIN KUMAR MD, Ot E11.22 TYPE 2 DIABETES MELLITUS W DIABETIC CONTROL CLERK 11/07/2017 EDWIN KUMAR MD, Ot E78.00 PURE HYPERCHOLESTEROLEMIA, UNSPECIFIED 11/07/2017 EDWIN KUMAR MD, Ot G60.9 HEREDITARY AND IDIOPATHIC NEUROPATHY, UN 11/07/2017 EDWIN KUMAR MD, Ot I25.10 ATHSCL HEART DISEASE OF [place] CORONARY 11/07/2017 EDWIN KUMAR MD, Ot I25.2 OLD MYOCARDIAL INFARCTION 11/07/2017 EDWIN KUMAR MD Ot M85.80 OTH DISRD OF BONE DENSITY AND STRUCTURE, 11/07/2017 EDWIN KUMAR MD, Ot N18.3 CHRONIC KIDNEY DISEASE, STAGE 3 (MODERAT 11/07/2017 EDWIN KUMAR MD Ot Z79.4 SENIOR LIVING (CURRENT) USE OF INSULIN 11/07/2017 EDWIN KUMAR MD, Ot Z79.899 OTHER HAND COKE DRAWER (CURRENT) DRUG THERAPY 11/07/2017 EDWIN KUMAR MD, Ot Z89.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 02/13/2018 HARRY SAMANOP Ot 250.00 DIAB VIGNESH WO COMPL, TYPE II OR UNSPEC TY 02/13/2018 HARRY SAMANO MENTAL MEASUREMENTS TEACHER Ot 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 MANUFACTURING ADVISOR-C Ot 250.4 0 DIAB W RENAL MANIFEST, TYPE II OR UNSPEC 02/13/2018 NEW, GRACE G. MANUFACTURING ADVISOR-C Ot 263.9 PROTEIN-NADIA MALNUTR NOS 02/13/2018 NEW, GRACE G. MANUFACTURING ADVISOR-C Ot 272.4 HYPERLIPIDEMIA NEC/NOS 02/13/2018 NEW, GRACE G. MANUFACTURING ADVISOR-C Ot 276.2 ACIDOSIS 02/13/2018 NEW, GRACE G. MANUFACTURING ADVISOR-C Ot 276.7 HYPERPOTASSEMIA 02/13/2018 NEW, GRACE G. MANUFACTURING ADVISOR-C Ot 285.2 1 ANEMIA IN CHRONIC KIDNEY DISEASE 02/13/2018 MOISÉS, GRACE G. MANUFACTURING ADVISOR-C Ot 403.1 0 HYPTNSV CHR KID DIS, BENIGN, W CHR KD ST 02/13/2018 ANI CURIELA G. MANUFACTURING ADVISOR-C Ot 585.3 CHRONIC KIDNEY DISEASE, STAGE III (MODER 02/13/2018 NEW, GRACE G. MANUFACTURING ADVISOR-C Ot 588.8 1 SECONDARY HYPERPARATHYROIDISM (OF RENAL 02/13/2018 NEW, GRACE G. 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 MANUFACTURING ADVISOR-C Ot 250.4 0 DIAB W RENAL MANIFEST, TYPE II OR UNSPEC 02/13/2018 NEW, GRACE G. MANUFACTURING ADVISOR-C Ot 263.9 PROTEIN-NADIA MALNUTR NOS 02/13/2018 NEW, GRACE G. MANUFACTURING ADVISOR-C Ot 272.4 HYPERLIPIDEMIA NEC/NOS 02/13/2018 NEW, GRACE G. MANUFACTURING ADVISOR-C Ot 276.7 HYPERPOTASSEMIA 02/13/2018 NEW, GRACE G. MANUFACTURING ADVISOR-C Ot 285.2 1 ANEMIA IN CHRONIC KIDNEY DISEASE 02/13/2018 NEW, GRACE G. MANUFACTURING ADVISOR-C Ot 403.1 0 HYPTNSV CHR KID DIS, BENIGN, W CHR KD ST 02/13/2018 NEW, GRACE G. MANUFACTURING ADVISOR-C Ot 585.3 CHRONIC KIDNEY DISEASE, STAGE III (MODER 02/13/2018 NEW, GRACE G. MANUFACTURING ADVISOR-C Ot 588.8 1 SECONDARY HYPERPARATHYROIDISM (OF RENAL 02/13/2018 NEW, GRACE G. MANUFACTURING ADVISOR-C Ot 791.0 PROTEINURIA 02/13/2018 NEW, GRACE G. MANUFACTURING ADVISOR-C Ot 250.4 0 DIAB W RENAL MANIFEST, TYPE II OR UNSPEC 02/13/2018 NEW, GRACE G. MANUFACTURING ADVISOR-C Ot 263.9 PROTEIN-NADIA MALNUTR NOS 02/13/2018 NEW, GRACE G. MANUFACTURING ADVISOR-C Ot 272.4 HYPERLIPIDEMIA NEC/NOS 02/13/2018 NEW, GRACE G. MANUFACTURING ADVISOR-C Ot 276.3 ALKALOSIS 02/13/2018 NEW, GRACE G. MANUFACTURING ADVISOR-C Ot 276.7 HYPERPOTASSEMIA 02/13/2018 NEW, GRACE G. MANUFACTURING ADVISOR-C Ot 285.2 1 ANEMIA IN CHRONIC KIDNEY DISEASE 02/13/2018 NEW, GRACE G. MANUFACTURING ADVISOR-C Ot 403.1 0 HYPTNSV CHR KID DIS, BENIGN, W CHR KD ST 02/13/2018 NEW, GRACE G. MANUFACTURING ADVISOR-C Ot 585.3 CHRONIC KIDNEY DISEASE, STAGE III (MODER 02/13/2018 NEW, GRACE G. MANUFACTURING ADVISOR-C Ot 588.8 1 SECONDARY HYPERPARATHYROIDISM (OF RENAL 02/13/2018 NEW, GRACE G. MANUFACTURING ADVISOR-C Ot 791.0 PROTEINURIA 02/13/2018 Ot 250.40 DANIEL B W RENAL MANIFEST, TYPE II OR UNSPEC 02/13/2018 Ot 263.9 PROT EIN-NADIA MALNUTR NOS 02/13/2018 Ot 272.4 HYPE RLIPIDEMIA NEC/NOS 02/13/2018 Ot 276.3 PINA LOSIS 02/13/2018 Ot 276.7 HYPE RPOTASSEMIA 02/13/2018 Ot 285.21 ANE DONNA IN CHRONIC KIDNEY DISEASE 02/13/2018 Ot 403.10 HYP TNSV CHR KID DIS, BENIGN, W CHR KD ST 02/13/2018 Ot 585.3 CONTROL CLERK KATHY KIDNEY DISEASE, STAGE III (MODER 02/13/2018 Ot 588.81 SEC ONDARY HYPERPARATHYROIDISM (OF RENAL 02/13/2018 Ot 791.0 PROT EINURIA 02/13/2018 Ot 244.9 HYPO THYROIDISM NOS 02/13/2018 Ot 250.92 DANIEL B W UNSPEC COMPL, TYPE II OR UNSPEC T 02/13/2018 Ot 250.40 DANIEL B W RENAL MANIFEST, TYPE II OR UNSPEC 02/13/2018 Ot 263.9 PROT EIN-NADIA MALNUTR NOS 02/13/2018 Ot 272.4 HYPE RLIPIDEMIA NEC/NOS 02/13/2018 Ot 276.3 PINA LOSIS 02/13/2018 Ot 276.7 HYPE RPOTASSEMIA 02/13/2018 Ot 285.21 ANE DONNA IN CHRONIC KIDNEY DISEASE 02/13/2018 Ot 403.10 HYP TNSV CHR KID DIS, BENIGN, W CHR KD ST 02/13/2018 Ot 585.3 CONTROL CLERK KATHY KIDNEY DISEASE, STAGE III (MODER 02/13/2018 Ot 588.81 SEC ONDARY HYPERPARATHYROIDISM (OF RENAL 02/13/2018 Ot 791.0 PROT EINURIA 02/13/2018 JT FIGUEROA MD Ot 244.8 ACQUIRED HYPOTHYROID NEC 02/13/2018 JT FIGUEROA MD Ot 246.8 DISORDERS OF THYROID NEC 02/13/2018 JT FIGUEROA MD Ot 250.93 DIAB W UNSPEC COMPL, TYPE I [JUVENILE TY 02/13/2018 LIZY WHITNEY Ot 250.00 DIAB VIGNESH WO COMPL, TYPE II OR UNSPEC TY 02/13/2018 LIZY WHITNEY Ot 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 02/13/2018 LIZY WHITNEY Ot 356.9 IDIO PERIPH NEURPTHY NOS 02/13/2018 LIZY WIHTNEY Ot 585.3 CHRONIC KIDNEY DISEASE, STAGE III (MODER 02/13/2018 LIZY WHITNEY Peña Ot V58.67 LONG-TERM (CURRENT) USE OF INSULIN 02/13/2018 LIZY WHITNEY Ot V58.69 OT MED,LT,CURRENT USE 02/13/2018 HARRY SAMANO MENTAL MEASUREMENTS TEACHER Ot D47.2 MONOCLONAL GAMMOPATHY 02/13/2018 HARRY SAMANO MENTAL MEASUREMENTS TEACHER Ot E11.9 TYPE 2 DIABETES MELLITUS WITHOUT COMPLIC 02/13/2018 HARRY SAMANO MENTAL MEASUREMENTS TEACHER Ot G60.9 HEREDITARY AND IDIOPATHIC NEUROPATHY, UN 02/13/2018 HARRY SAMANO MENTAL MEASUREMENTS TEACHER Ot N18.3 CHRONIC KIDNEY DISEASE, STAGE 3 (MODERAT 02/13/2018 HARRY SAMANO MENTAL MEASUREMENTS TEACHER Ot Z79.4 HAND COKE DRAWER (CURRENT) USE OF INSULIN 02/13/2018 HARRY SAMANO MENTAL MEASUREMENTS TEACHER Ot Z79.899 OTHER SENIOR LIVING (CURRENT) DRUG THERAPY 02/13/2018 GRACE CURIEL. MANUFACTURING ADVISOR-C Ot D63.1 ANEMIA IN CHRONIC KIDNEY DISEASE 02/13/2018 GRACE CURIEL MANUFACTURING ADVISOR-C Ot E11.2 9 TYPE 2 DIABETES MELLITUS W OTH DIABETIC 02/13/2018 MOISÉS GRACE G. MANUFACTURING ADVISOR-C Ot E46 UNSPECIFIED PROTEIN-CALORIE MALNUTRITION 02/13/2018 MOISÉS GRACE G. MANUFACTURING ADVISOR-C Ot E87.5 HYPERKALEMIA 02/13/2018 MOISÉS GRACE G. MANUFACTURING ADVISOR-C Ot I12.9 HYPERTENSIVE CHRONIC KIDNEY DISEASE W ST 02/13/2018 GRACE CURIEL G. MANUFACTURING ADVISOR-C Ot N18.3 CHRONIC KIDNEY DISEASE, STAGE 3 (MODERAT 02/13/2018 MOISÉS GRACE G. MANUFACTURING ADVISOR-C Ot N25.8 1 SECONDARY HYPERPARATHYROIDISM OF RENAL O 02/13/2018 MOISÉS GRACE G. MANUFACTURING ADVISOR-C Ot R80.9 PROTEINURIA, UNSPECIFIED 02/13/2018 CAROLINA PAYAN, JT Negrete Ot E03.8 OTHER SPECIFIED HYPOTHYROIDISM 02/13/2018 MOISÉS GRACE G. MANUFACTURING ADVISOR-C Ot D47.2 MONOCLONAL GAMMOPATHY 02/13/2018 MOISÉS GRACE G. MANUFACTURING ADVISOR-C Ot D61.8 18 OTHER PANCYTOPENIA 02/13/2018 MOISÉS GRACE G. MANUFACTURING ADVISOR-C Ot D63.1 ANEMIA IN CHRONIC KIDNEY DISEASE 02/13/2018 NEW, GRACE G. MANUFACTURING ADVISOR-C Ot E11.2 9 TYPE 2 DIABETES MELLITUS W OTH DIABETIC 02/13/2018 NEW, GRACE G. MANUFACTURING ADVISOR-C Ot E44.1 MILD PROTEIN-[place] MALNUTRITION 02/13/2018 NEW, GRACE G. MANUFACTURING ADVISOR-C Ot E78.5 HYPERLIPIDEMIA, UNSPECIFIED 02/13/2018 NEW, GRACE G. MANUFACTURING ADVISOR-C Ot E87.3 ALKALOSIS 02/13/2018 NEW, GRACE G. MANUFACTURING ADVISOR-C Ot E87.5 HYPERKALEMIA 02/13/2018 NEW, GRACE G. MANUFACTURING ADVISOR-C Ot I12.9 HYPERTENSIVE CHRONIC KIDNEY DISEASE W ST 02/13/2018 NEW, GRACE G. MANUFACTURING ADVISOR-C Ot N18.3 CHRONIC KIDNEY DISEASE, STAGE 3 (MODERAT 02/13/2018 NEW, GRACE G. MANUFACTURING ADVISOR-C Ot N25.8 1 SECONDARY HYPERPARATHYROIDISM OF RENAL O 02/13/2018 NEW, GRACE G. MANUFACTURING ADVISOR-C Ot R80.9 PROTEINURIA, UNSPECIFIED 02/13/2018 NEW, GRACE G. MANUFACTURING ADVISOR-C Ot D47.2 MONOCLONAL GAMMOPATHY 02/13/2018 NEW, GRACE G. MANUFACTURING ADVISOR-C Ot D61.8 18 OTHER PANCYTOPENIA 02/13/2018 NEW, GRACE G. MANUFACTURING ADVISOR-C Ot D63.1 ANEMIA IN CHRONIC KIDNEY DISEASE 02/13/2018 NEW, GRACE G. MANUFACTURING ADVISOR-C Ot E11.2 2 TYPE 2 DIABETES MELLITUS W DIABETIC CONTROL CLERK 02/13/2018 NEW, GRACE G. MANUFACTURING ADVISOR-C Ot E44.1 MILD PROTEIN-[place] MALNUTRITION 02/13/2018 NEW, GRACE G. MANUFACTURING ADVISOR-C Ot E78.5 HYPERLIPIDEMIA, UNSPECIFIED 02/13/2018 NEW, GRACE G. MANUFACTURING ADVISOR-C Ot E87.3 ALKALOSIS 02/13/2018 NEW, GRACE G. MANUFACTURING ADVISOR-C Ot E87.5 HYPERKALEMIA 02/13/2018 NEW, GRACE G. MANUFACTURING ADVISOR-C Ot I12.9 HYPERTENSIVE CHRONIC KIDNEY DISEASE W ST 02/13/2018 NEW, GRACE G. MANUFACTURING ADVISOR-C Ot N18.3 CHRONIC KIDNEY DISEASE, STAGE 3 (MODERAT 02/13/2018 NEW, GRACE G. MANUFACTURING ADVISOR-C Ot N25.8 1 SECONDARY HYPERPARATHYROIDISM OF RENAL O 02/13/2018 NEW, GRACE G. MANUFACTURING ADVISOR-C Ot R80.9 PROTEINURIA, UNSPECIFIED 02/13/2018 RAINER MCGOVERN DO Ot S82.851A DISPLACED TRIMALLEOLAR FRACTURE OF RIGHT 02/13/2018 RAINER MCGOVERN DO Ot X58.XXXA EXPOSURE TO OTHER SPECIFIED FACTORS, INI 02/13/2018 RAINER MCGOVERN DO Ot Y99.8 OTHER EXTERNAL CAUSE STATUS 02/13/2018 RAINER MCGOVERN DO Ot Z79.01 SENIOR LIVING (CURRENT) USE OF ANTICOAGULANT 02/13/2018 LIZY WHITNEY Ot M84.363 A STRESS FRACTURE, RIGHT FIBULA, INIT ENCN 02/13/2018 LIZY WHITNEY Ot M84.371 A STRESS FRACTURE, RIGHT ANKLE, INITIAL EN 02/13/2018 LIZY WHITNEY Ot M85.88 OT DISRD OF BONE DENSITY AND STRUCTURE, 02/13/2018 CAROLINA PAYAN, JT Negrete Ot E03.4 ATROPHY OF THYROID (ACQUIRED) 02/13/2018 CAROLINA PAYAN, JT Negrete Ot E10.8 TYPE 1 DIABETES MELLITUS WITH UNSPECIFIE 02/13/2018 NEW GRACE G. MANUFACTURING ADVISOR-C Ot D47.2 MONOCLONAL GAMMOPATHY 02/13/2018 NEW GRACE G. MANUFACTURING ADVISOR-C Ot D61.8 18 OTHER PANCYTOPENIA 02/13/2018 NEW GRACE G. MANUFACTURING ADVISOR-C Ot D63.1 ANEMIA IN CHRONIC KIDNEY DISEASE 02/13/2018 NEW GRACE G. MANUFACTURING ADVISOR-C Ot E11.2 9 TYPE 2 DIABETES MELLITUS W OTH DIABETIC 02/13/2018 NEW GRACE G. MANUFACTURING ADVISOR-C Ot E44.1 MILD PROTEIN-[place]ORIE MALNUTRITION 02/13/2018 NEW GRACE G. MANUFACTURING ADVISOR-C Ot E78.5 HYPERLIPIDEMIA, UNSPECIFIED 02/13/2018 NEW, GRACE G. MANUFACTURING ADVISOR-C Ot E87.3 ALKALOSIS 02/13/2018 NEW GRACE G. MANUFACTURING ADVISOR-C Ot E87.5 HYPERKALEMIA 02/13/2018 NEW GRACE G. MANUFACTURING ADVISOR-C Ot I12.9 HYPERTENSIVE CHRONIC KIDNEY DISEASE W ST 02/13/2018 NEW GRACE G. MANUFACTURING ADVISOR-C Ot N18.3 CHRONIC KIDNEY DISEASE, STAGE 3 (MODERAT 02/13/2018 NEW GRACE G. MANUFACTURING ADVISOR-C Ot N25.8 1 SECONDARY HYPERPARATHYROIDISM OF RENAL O 02/13/2018 NEW GRACE G. MANUFACTURING ADVISOR-C Ot R80.9 PROTEINURIA, UNSPECIFIED 02/13/2018 CAROLINA PAYAN, JT Negrete Ot E03.4 ATROPHY OF THYROID (ACQUIRED) 02/13/2018 CAROLINA PAYAN, JT Negrete Ot E10.8 TYPE 1 DIABETES MELLITUS WITH UNSPECIFIE 02/13/2018 NEW, GRACE Cortez. MANUFACTURING ADVISOR-C Ot D47.2 MONOCLONAL GAMMOPATHY 02/13/2018 NEW, GRACE G. MANUFACTURING ADVISOR-C Ot D61.8 18 OTHER PANCYTOPENIA 02/13/2018 NEW, GRACE G. MANUFACTURING ADVISOR-C Ot D63.1 ANEMIA IN CHRONIC KIDNEY DISEASE 02/13/2018 NEW, GRACE G. MANUFACTURING ADVISOR-C Ot E03.4 ATROPHY OF THYROID (ACQUIRED) 02/13/2018 NEW, GRACE G. MANUFACTURING ADVISOR-C Ot E11.2 2 TYPE 2 DIABETES MELLITUS W DIABETIC CONTROL CLERK 02/13/2018 NEW, GRACE G. MANUFACTURING ADVISOR-C Ot E44.1 MILD PROTEIN-[place] MALNUTRITION 02/13/2018 NEW, RGACE G. MANUFACTURING ADVISOR-C Ot E78.5 HYPERLIPIDEMIA, UNSPECIFIED 02/13/2018 NEW, GRACE G. MANUFACTURING ADVISOR-C Ot E87.3 ALKALOSIS 02/13/2018 NEW, GRACE G. MANUFACTURING ADVISOR-C Ot E87.5 HYPERKALEMIA 02/13/2018 NEW, GRACE G. MANUFACTURING ADVISOR-C Ot I12.9 HYPERTENSIVE CHRONIC KIDNEY DISEASE W ST 02/13/2018 NEW, GRACE G. MANUFACTURING ADVISOR-C Ot N18.3 CHRONIC KIDNEY DISEASE, STAGE 3 (MODERAT 02/13/2018 NEW, GRACE G. MANUFACTURING ADVISOR-C Ot N25.8 1 SECONDARY HYPERPARATHYROIDISM OF RENAL O 02/13/2018 NEW, GRACE G. MANUFACTURING ADVISOR-C Ot R80.9 PROTEINURIA, UNSPECIFIED 02/13/2018 DUYEN PAYAN, SKYLAR R Ot E78. 2 MIXED HYPERLIPIDEMIA 03/30/2018 DEVONTE, BOBAN N Ot D47.2 MONOCLONAL GAMMOPATHY 03/30/2018 DEVONTE, BOBAN N Ot D63.8 ANEMIA IN OTHER CHRONIC DISEASES CLASSIF 03/30/2018 DEVONTE BOBAN N Ot E03.9 HYPOTHYROIDISM, UNSPECIFIED 03/30/2018 DEVONTE, BOBAN N Ot E11.22 TYPE 2 DIABETES MELLITUS W DIABETIC CONTROL CLERK 03/30/2018 DEVONTE BOBAN N Ot E78.00 PURE HYPERCHOLESTEROLEMIA, UNSPECIFIED 03/30/2018 LIZY WHITNEY N Ot G60.9 HEREDITARY AND IDIOPATHIC NEUROPATHY, UN 03/30/2018 LIZY WHITNEY N Ot I25.10 ATHSCL HEART DISEASE OF [place] CORONARY 03/30/2018 LIZY WHITNEY N Ot I25.2 OLD MYOCARDIAL INFARCTION 03/30/2018 LIZY WHITNEY N Ot M85.80 OTH DISRD OF BONE DENSITY AND STRUCTURE, 03/30/2018 LIZY WHITNEY N Ot N18.3 CHRONIC KIDNEY DISEASE, STAGE 3 (MODERAT 03/30/2018 LIZY WHITNEY N Ot Z79.4 SENIOR LIVING (CURRENT) USE OF INSULIN 03/30/2018 RONEN WHITNEYAN N Ot Z79.899 OTHER HAND COKE DRAWER (CURRENT) DRUG THERAPY 03/30/2018 DEVONTE BOBREGINA N Ot Z89.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 04/13/2018 LIZY WHITNEY N Ot D47.2 MONOCLONAL GAMMOPATHY 04/13/2018 LIZY WHITNEY N Ot D63.8 ANEMIA IN OTHER CHRONIC DISEASES CLASSIF 04/13/2018 LIZY WHITNEY N Ot E03.9 HYPOTHYROIDISM, UNSPECIFIED 04/13/2018 LIZY WHITNEY N Ot E11.22 TYPE 2 DIABETES MELLITUS W DIABETIC CONTROL CLERK 04/13/2018 LIZY WHITNEY N Ot E78.00 PURE HYPERCHOLESTEROLEMIA, UNSPECIFIED 04/13/2018 LIZY WHITNEY N Ot G60.9 HEREDITARY AND IDIOPATHIC NEUROPATHY, UN 04/13/2018 LIZY WHITNEY N Ot I25.10 ATHSCL HEART DISEASE OF [place] CORONARY 04/13/2018 LIZY WHITNEY N Ot I25.2 OLD MYOCARDIAL INFARCTION 04/13/2018 LIZY WHITNEY N Ot M85.80 OTH DISRD OF BONE DENSITY AND STRUCTURE, 04/13/2018 LIZY WHITNEY N Ot N18.3 CHRONIC KIDNEY DISEASE, STAGE 3 (MODERAT 04/13/2018 DEVONTELIZY MELVIN N Ot Z79.4 SENIOR LIVING (CURRENT) USE OF INSULIN 04/13/2018 DEVONTE BOBREGINA N Ot Z79.899 OTHER HAND COKE DRAWER (CURRENT) DRUG THERAPY 04/13/2018 LIZY WHITNEY N Ot Z89.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 05/02/2018 GRACE CURIEL Ot 250.4 0 DIAB W RENAL MANIFEST, TYPE II OR UNSPEC 05/02/2018 NEWGRACE MANUFACTURING ADVISOR-C Ot 263.9 PROTEIN-NADIA MALNUTR NOS 05/02/2018 NEWGRACE MANUFACTURING ADVISOR-C Ot 272.4 HYPERLIPIDEMIA NEC/NOS 05/02/2018 NEWGRACE MANUFACTURING ADVISOR-C Ot 276.2 ACIDOSIS 05/02/2018 NEWGRACE. MANUFACTURING ADVISOR-C Ot 276.7 HYPERPOTASSEMIA 05/02/2018 NEWGRACE. MANUFACTURING ADVISOR-C Ot 285.2 1 ANEMIA IN CHRONIC KIDNEY DISEASE 05/02/2018 GRACE CURIEL MANUFACTURING ADVISOR-C Ot 403.1 0 HYPTNSV CHR KID DIS, BENIGN, W CHR KD ST 05/02/2018 GRACE CURIEL MANUFACTURING ADVISOR-C Ot 585.3 CHRONIC KIDNEY DISEASE, STAGE III (MODER 05/02/2018 GRACE CURIEL MANUFACTURING ADVISOR-C Ot 588.8 1 SECONDARY HYPERPARATHYROIDISM (OF RENAL 05/02/2018 MOISÉS, GRACE Rivera MANUFACTURING ADVISOR-C Ot 791.0 PROTEINURIA 05/02/2018 HARRY SAMANO MENTAL MEASUREMENTS TEACHER Ot 250.00 DIAB VIGNESH WO COMPL, TYPE II OR UNSPEC TY 05/02/2018 HARRY SAMANO MENTAL MEASUREMENTS TEACHER Ot 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 05/02/2018 HARRY SAMANO MENTAL MEASUREMENTS TEACHER Ot 356.9 IDIO PERIPH NEURPTHY NOS 05/02/2018 HARRY SAMANO MENTAL MEASUREMENTS TEACHER Ot 585.3 CHRONIC KIDNEY DISEASE, STAGE III (MODER 05/02/2018 HARRY SAMANO MENTAL MEASUREMENTS TEACHER Ot V58.67 LONG-TERM (CURRENT) USE OF INSULIN 05/02/2018 HARRY SAMANO MENTAL MEASUREMENTS TEACHER Ot V58.69 OTH MED,LT,CURRENT USE 05/02/2018 JT FIGUEROA MD Ot 244.9 HYPOTHYROIDISM NOS 05/02/2018 JT FIGUEROA MD Ot 250.01 DIAB VIGNESH WO COMPL, TYPE I [JUVENILE TYP 05/02/2018 JT FIGUEROA MD Ot 272.4 HYPERLIPIDEMIA NEC/NOS 05/02/2018 GRACE CURIEL MANUFACTURING ADVISOR-C Ot 250.4 0 DIAB W RENAL MANIFEST, TYPE II OR UNSPEC 05/02/2018 GRACE CURIEL MANUFACTURING ADVISOR-C Ot 263.9 PROTEIN-NADIA MALNUTR NOS 05/02/2018 NEW, GRACE G. MANUFACTURING ADVISOR-C Ot 272.4 HYPERLIPIDEMIA NEC/NOS 05/02/2018 NEW, GRACE GLatonya MANUFACTURING ADVISOR-C Ot 276.7 HYPERPOTASSEMIA 05/02/2018 NEW, GRACE G. MANUFACTURING ADVISOR-C Ot 285.2 1 ANEMIA IN CHRONIC KIDNEY DISEASE 05/02/2018 NEW, GRACE G. MANUFACTURING ADVISOR-C Ot 403.1 0 HYPTNSV CHR KID DIS, BENIGN, W CHR KD ST 05/02/2018 NEW, GRACE Diego. MANUFACTURING ADVISOR-C Ot 585.3 CHRONIC KIDNEY DISEASE, STAGE III (MODER 05/02/2018 NEW, GRACE G. MANUFACTURING ADVISOR-C Ot 588.8 1 SECONDARY HYPERPARATHYROIDISM (OF RENAL 05/02/2018 NEW, GRACE G. MANUFACTURING ADVISOR-C Ot 791.0 PROTEINURIA 05/02/2018 NEW, GRACE G. MANUFACTURING ADVISOR-C Ot 250.4 0 DIAB W RENAL MANIFEST, TYPE II OR UNSPEC 05/02/2018 NEW, GRACE G. MANUFACTURING ADVISOR-C Ot 263.9 PROTEIN-NADIA MALNUTR NOS 05/02/2018 NEW, GRACE GLatonya MANUFACTURING ADVISOR-C Ot 272.4 HYPERLIPIDEMIA NEC/NOS 05/02/2018 NEW, GRACE GLatonya MANUFACTURING ADVISOR-C Ot 276.3 ALKALOSIS 05/02/2018 NEW, GRACE G. MANUFACTURING ADVISOR-C Ot 276.7 HYPERPOTASSEMIA 05/02/2018 NEW, GRACE G. MANUFACTURING ADVISOR-C Ot 285.2 1 ANEMIA IN CHRONIC KIDNEY DISEASE 05/02/2018 NEW, GRACE G. MANUFACTURING ADVISOR-C Ot 403.1 0 HYPTNSV CHR KID DIS, BENIGN, W CHR KD ST 05/02/2018 NEW, GRACE Rivera MANUFACTURING ADVISOR-C Ot 585.3 CHRONIC KIDNEY DISEASE, STAGE III (MODER 05/02/2018 NEW, GRACE GLatonya MANUFACTURING ADVISOR-C Ot 588.8 1 SECONDARY HYPERPARATHYROIDISM (OF RENAL 05/02/2018 NEW, GRACE G. MANUFACTURING ADVISOR-C Ot 791.0 PROTEINURIA 05/02/2018 Ot 250.40 DANIEL B W RENAL MANIFEST, TYPE II OR UNSPEC 05/02/2018 Ot 263.9 PROT EIN-NADIA MALNUTR NOS 05/02/2018 Ot 272.4 HYPE RLIPIDEMIA NEC/NOS 05/02/2018 Ot 276.3 PINA LOSIS 05/02/2018 Ot 276.7 HYPE RPOTASSEMIA 05/02/2018 Ot 285.21 ANE DONNA IN CHRONIC KIDNEY DISEASE 05/02/2018 Ot 403.10 HYP TNSV CHR KID DIS, BENIGN, W CHR KD ST 05/02/2018 Ot 585.3 CONTROL CLERK KATHY KIDNEY DISEASE, STAGE III (MODER 05/02/2018 Ot 588.81 SEC ONDARY HYPERPARATHYROIDISM (OF RENAL 05/02/2018 Ot 791.0 PROT EINURIA 05/02/2018 Ot 244.9 HYPO THYROIDISM NOS 05/02/2018 Ot 250.92 DANIEL B W UNSPEC COMPL, TYPE II OR UNSPEC T 05/02/2018 Ot 250.40 DANIEL B W RENAL MANIFEST, TYPE II OR UNSPEC 05/02/2018 Ot 263.9 PROT EIN-NADIA MALNUTR NOS 05/02/2018 Ot 272.4 HYPE RLIPIDEMIA NEC/NOS 05/02/2018 Ot 276.3 PINA LOSIS 05/02/2018 Ot 276.7 HYPE RPOTASSEMIA 05/02/2018 Ot 285.21 ANE DONNA IN CHRONIC KIDNEY DISEASE 05/02/2018 Ot 403.10 HYP TNSV CHR KID DIS, BENIGN, W CHR KD ST 05/02/2018 Ot 585.3 CONTROL CLERK KATHY KIDNEY DISEASE, STAGE III (MODER 05/02/2018 Ot 588.81 SEC ONDARY HYPERPARATHYROIDISM (OF RENAL 05/02/2018 Ot 791.0 PROT EINURIA 05/02/2018 JT FIGUEROA MD Ot 244.8 ACQUIRED HYPOTHYROID NEC 05/02/2018 JT FIGUEROA MD Ot 246.8 DISORDERS OF THYROID NEC 05/02/2018 JT FIGUEROA MD Ot 250.93 DIAB W UNSPEC COMPL, TYPE I [JUVENILE TY 05/02/2018 LIZY WHITNEY N Ot 250.00 DIAB VIGNESH WO COMPL, TYPE II OR UNSPEC TY 05/02/2018 LIZY WHITNEY N Ot 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 05/02/2018 LIZY WHITNEY Ot 356.9 IDIO PERIPH NEURPTHY NOS 05/02/2018 LIZY WHITNEY Ot 585.3 CHRONIC KIDNEY DISEASE, STAGE III (MODER 05/02/2018 LIZY WHITNEY Ot V58.67 LONG-TERM (CURRENT) USE OF INSULIN 05/02/2018 LIZY WHITNEY Ot V58.69 OTH MED,LT,CURRENT USE 05/02/2018 SAMANOHARRY Johnson MENTAL MEASUREMENTS TEACHER Ot D47.2 MONOCLONAL GAMMOPATHY 05/02/2018 JAZMYNE HARRY Johnson MENTAL MEASUREMENTS TEACHER Ot E11.9 TYPE 2 DIABETES MELLITUS WITHOUT COMPLIC 05/02/2018 SAMANOHARRY MENTAL MEASUREMENTS TEACHER Ot G60.9 HEREDITARY AND IDIOPATHIC NEUROPATHY, UN 05/02/2018 SAMANOHARRY Johnson MENTAL MEASUREMENTS TEACHER Ot N18.3 CHRONIC KIDNEY DISEASE, STAGE 3 (MODERAT 05/02/2018 JAZMYNE HARRY Johnson MENTAL MEASUREMENTS TEACHER Ot Z79.4 HAND COKE DRAWER (CURRENT) USE OF INSULIN 05/02/2018 SAMANOHARRY Johnson MENTAL MEASUREMENTS TEACHER Ot Z79.899 OTHER HAND COKE DRAWER (CURRENT) DRUG THERAPY 05/02/2018 NEWGRACE MANUFACTURING ADVISOR-C Ot D63.1 ANEMIA IN CHRONIC KIDNEY DISEASE 05/02/2018 NEW GRACE G. MANUFACTURING ADVISOR-C Ot E11.2 9 TYPE 2 DIABETES MELLITUS W [facility] DIABETIC 05/02/2018 NEW GRACE GLatonya MANUFACTURING ADVISOR-C Ot E46 UNSPECIFIED PROTEIN-[place]ORIE MALNUTRITION 05/02/2018 NEW GRACE G. MANUFACTURING ADVISOR-C Ot E87.5 HYPERKALEMIA 05/02/2018 NEW, GRACE G. MANUFACTURING ADVISOR-C Ot I12.9 HYPERTENSIVE CHRONIC KIDNEY DISEASE W ST 05/02/2018 NEW GRACE GLatonya MANUFACTURING ADVISOR-C Ot N18.3 CHRONIC KIDNEY DISEASE, STAGE 3 (MODERAT 05/02/2018 NEW GRACE GLatonya MANUFACTURING ADVISOR-C Ot N25.8 1 SECONDARY HYPERPARATHYROIDISM OF RENAL O 05/02/2018 NEW GRACE GLatonya MANUFACTURING ADVISOR-C Ot R80.9 PROTEINURIA, UNSPECIFIED 05/02/2018 CAROLINA PAYAN, JT Negrete Ot E03.8 OTHER SPECIFIED HYPOTHYROIDISM 05/02/2018 NEW GRACE GLatonya MANUFACTURING ADVISOR-C Ot D47.2 MONOCLONAL GAMMOPATHY 05/02/2018 NEW, GRACE GLatonya MANUFACTURING ADVISOR-C Ot D61.8 18 OTHER PANCYTOPENIA 05/02/2018 NEW, GRACE GLatonya MANUFACTURING ADVISOR-C Ot D63.1 ANEMIA IN CHRONIC KIDNEY DISEASE 05/02/2018 NEW GRACE GLatonya MANUFACTURING ADVISOR-C Ot E11.2 9 TYPE 2 DIABETES MELLITUS W OT DIABETIC 05/02/2018 NEW GRACE G. MANUFACTURING ADVISOR-C Ot E44.1 MILD PROTEIN-[place]OR[place] MALNUTRITION 05/02/2018 NEW, GRACE G. MANUFACTURING ADVISOR-C Ot E78.5 HYPERLIPIDEMIA, UNSPECIFIED 05/02/2018 NEW, GRACE G. MANUFACTURING ADVISOR-C Ot E87.3 ALKALOSIS 05/02/2018 NEW, GRACE G. MANUFACTURING ADVISOR-C Ot E87.5 HYPERKALEMIA 05/02/2018 NEW, GRACE G. MANUFACTURING ADVISOR-C Ot I12.9 HYPERTENSIVE CHRONIC KIDNEY DISEASE W ST 05/02/2018 NEW, GRACE G. MANUFACTURING ADVISOR-C Ot N18.3 CHRONIC KIDNEY DISEASE, STAGE 3 (MODERAT 05/02/2018 NEW, GRACE G. MANUFACTURING ADVISOR-C Ot N25.8 1 SECONDARY HYPERPARATHYROIDISM OF RENAL O 05/02/2018 NEW, GRACE G. MANUFACTURING ADVISOR-C Ot R80.9 PROTEINURIA, UNSPECIFIED 05/02/2018 NEW, GRACE G. MANUFACTURING ADVISOR-C Ot D47.2 MONOCLONAL GAMMOPATHY 05/02/2018 NEW, GRACE G. MANUFACTURING ADVISOR-C Ot D61.8 18 OTHER PANCYTOPENIA 05/02/2018 NEW, GRACE G. MANUFACTURING ADVISOR-C Ot D63.1 ANEMIA IN CHRONIC KIDNEY DISEASE 05/02/2018 NEW, GRACE G. MANUFACTURING ADVISOR-C Ot E11.2 2 TYPE 2 DIABETES MELLITUS W DIABETIC CONTROL CLERK 05/02/2018 NEW, GRACE G. MANUFACTURING ADVISOR-C Ot E44.1 MILD PROTEIN-[place] MALNUTRITION 05/02/2018 NEW, GRACE G. MANUFACTURING ADVISOR-C Ot E78.5 HYPERLIPIDEMIA, UNSPECIFIED 05/02/2018 NEW, GRACE G. MANUFACTURING ADVISOR-C Ot E87.3 ALKALOSIS 05/02/2018 NEW, GRACE G. MANUFACTURING ADVISOR-C Ot E87.5 HYPERKALEMIA 05/02/2018 NEW, GRACE G. MANUFACTURING ADVISOR-C Ot I12.9 HYPERTENSIVE CHRONIC KIDNEY DISEASE W ST 05/02/2018 NEW, GRACE G. MANUFACTURING ADVISOR-C Ot N18.3 CHRONIC KIDNEY DISEASE, STAGE 3 (MODERAT 05/02/2018 NEW, GRACE G. MANUFACTURING ADVISOR-C Ot N25.8 1 SECONDARY HYPERPARATHYROIDISM OF RENAL O 05/02/2018 NEW, GRACE G. MANUFACTURING ADVISOR-C Ot R80.9 PROTEINURIA, UNSPECIFIED 05/02/2018 FROILAN DO, RAINER Yi Ot S82.851A DISPLACED TRIMALLEOLAR FRACTURE OF RIGHT 05/02/2018 FROILAN DORAINER Ot X58.XXXA EXPOSURE TO OTHER SPECIFIED FACTORS, INI 05/02/2018 FROILAN DO, RAINER Yi Ot Y99.8 OTHER EXTERNAL CAUSE STATUS 05/02/2018 FROILAN DO, RAINER F Ot Z79.01 SENIOR LIVING (CURRENT) USE OF ANTICOAGULANT 05/02/2018 LIZY WHITNEY Ot M84.363 A STRESS FRACTURE, RIGHT FIBULA, INIT ENCN 05/02/2018 LIZY WHITNEY Peña Ot M84.371 A STRESS FRACTURE, RIGHT ANKLE, INITIAL EN 05/02/2018 LIZY WHITNEY Ot M85.88 OT DISRD OF BONE DENSITY AND STRUCTURE, 05/02/2018 JT FIGUEROA MD, Ot E03.4 ATROPHY OF THYROID (ACQUIRED) 05/02/2018 JT FIGUEROA MD, Ot E10.8 TYPE 1 DIABETES MELLITUS WITH UNSPECIFIE 05/02/2018 NEW, GRACE G. MANUFACTURING ADVISOR-C Ot D47.2 MONOCLONAL GAMMOPATHY 05/02/2018 NEW, GRACE G. MANUFACTURING ADVISOR-C Ot D61.8 18 OTHER PANCYTOPENIA 05/02/2018 NEW, GRACE G. MANUFACTURING ADVISOR-C Ot D63.1 ANEMIA IN CHRONIC KIDNEY DISEASE 05/02/2018 NEW, GRACE G. MANUFACTURING ADVISOR-C Ot E11.2 9 TYPE 2 DIABETES MELLITUS W OTH DIABETIC 05/02/2018 NEW, GRACE G. MANUFACTURING ADVISOR-C Ot E44.1 MILD PROTEIN-[place]ORIE MALNUTRITION 05/02/2018 NEW, GRACE G. MANUFACTURING ADVISOR-C Ot E78.5 HYPERLIPIDEMIA, UNSPECIFIED 05/02/2018 NEW, GRACE G. MANUFACTURING ADVISOR-C Ot E87.3 ALKALOSIS 05/02/2018 NEW, GRACE G. MANUFACTURING ADVISOR-C Ot E87.5 HYPERKALEMIA 05/02/2018 NEW, GRACE G. MANUFACTURING ADVISOR-C Ot I12.9 HYPERTENSIVE CHRONIC KIDNEY DISEASE W ST 05/02/2018 NEW, GRACE G. MANUFACTURING ADVISOR-C Ot N18.3 CHRONIC KIDNEY DISEASE, STAGE 3 (MODERAT 05/02/2018 NEW, GRACE G. MANUFACTURING ADVISOR-C Ot N25.8 1 SECONDARY HYPERPARATHYROIDISM OF RENAL O 05/02/2018 NEW, GRACE G. MANUFACTURING ADVISOR-C Ot R80.9 PROTEINURIA, UNSPECIFIED 05/02/2018 JT FIGUEROA MD Ot E03.4 ATROPHY OF THYROID (ACQUIRED) 05/02/2018 JT FIGUEROA MD Ot E10.8 TYPE 1 DIABETES MELLITUS WITH UNSPECIFIE 05/02/2018 NEW, GRACE Cortez. MANUFACTURING ADVISOR-C Ot D47.2 MONOCLONAL GAMMOPATHY 05/02/2018 NEW, GRACE G. MANUFACTURING ADVISOR-C Ot D61.8 18 OTHER PANCYTOPENIA 05/02/2018 NEW, GRACE G. MANUFACTURING ADVISOR-C Ot D63.1 ANEMIA IN CHRONIC KIDNEY DISEASE 05/02/2018 NEW, GRACE G. MANUFACTURING ADVISOR-C Ot E03.4 ATROPHY OF THYROID (ACQUIRED) 05/02/2018 NEW, GRACE G. MANUFACTURING ADVISOR-C Ot E11.2 2 TYPE 2 DIABETES MELLITUS W DIABETIC CONTROL CLERK 05/02/2018 NEW, GRACE G. MANUFACTURING ADVISOR-C Ot E44.1 MILD PROTEIN-[place] MALNUTRITION 05/02/2018 NEW, GRACE G. MANUFACTURING ADVISOR-C Ot E78.5 HYPERLIPIDEMIA, UNSPECIFIED 05/02/2018 NEW, GRACE G. MANUFACTURING ADVISOR-C Ot E87.3 ALKALOSIS 05/02/2018 NEW, GRACE Diego. MANUFACTURING ADVISOR-C Ot E87.5 HYPERKALEMIA 05/02/2018 NEW, GRACE G. MANUFACTURING ADVISOR-C Ot I12.9 HYPERTENSIVE CHRONIC KIDNEY DISEASE W ST 05/02/2018 NEW, GRACE G. MANUFACTURING ADVISOR-C Ot N18.3 CHRONIC KIDNEY DISEASE, STAGE 3 (MODERAT 05/02/2018 NEW, GRAEC G. MANUFACTURING ADVISOR-C Ot N25.8 1 SECONDARY HYPERPARATHYROIDISM OF RENAL O 05/02/2018 NEW, GRACE G. MANUFACTURING ADVISOR-C Ot R80.9 PROTEINURIA, UNSPECIFIED 05/02/2018 DUYEN PAYAN, SKYLAR R Ot E78. 2 MIXED HYPERLIPIDEMIA 05/02/2018 LIZY WHITNEY N Ot D47.2 MONOCLONAL GAMMOPATHY 05/02/2018 DEVONTE BOBREGINA N Ot D63.8 ANEMIA IN OTHER CHRONIC DISEASES CLASSIF 05/02/2018 DEVONTE BOBREGINA N Ot E03.9 HYPOTHYROIDISM, UNSPECIFIED 05/02/2018 DEVONTE BOBREGINA N Ot E11.22 TYPE 2 DIABETES MELLITUS W DIABETIC CONTROL CLERK 05/02/2018 LIZY WHITNEY N Ot E78.00 PURE HYPERCHOLESTEROLEMIA, UNSPECIFIED 05/02/2018 DEVONTE BOBREGINA N Ot G60.9 HEREDITARY AND IDIOPATHIC NEUROPATHY, UN 05/02/2018 LIZY WHITNEY N Ot I25.10 ATHSCL HEART DISEASE OF [place] CORONARY 05/02/2018 LIZY WHITNEY N Ot I25.2 OLD MYOCARDIAL INFARCTION 05/02/2018 LIZY WHITNEY Ot M85.80 OTH DISRD OF BONE DENSITY AND STRUCTURE, 05/02/2018 LIZY WHITNEY Ot N18.3 CHRONIC KIDNEY DISEASE, STAGE 3 (MODERAT 05/02/2018 LIZY WHITNEY Ot Z79.4 HAND COKE DRAWER (CURRENT) USE OF INSULIN 05/02/2018 LIZY WHITNEY Ot Z79.899 OTHER SENIOR LIVING (CURRENT) DRUG THERAPY 05/02/2018 LIZY WHITNEY Ot Z89.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 05/02/2018 REGINALD PAYAN, ANANYA Cobb Ot D64.9 ANEMIA, UNSPECIFIED 05/02/2018 ANANYA MONTELONGO MD, Ot E03.9 HYPOTHYROIDISM, UNSPECIFIED 05/02/2018 ANANYA MONTELONGO MD, Ot E11.10 TYPE 2 DIABETES MELLITUS WITH KETOACIDOS 05/02/2018 ANANYA MONTELONGO MD, Ot E11.40 TYPE 2 DIABETES MELLITUS WITH DIABETIC N 05/02/2018 ANANYA MONTELONGO MD, Ot E11.51 TYPE 2 DIABETES W DIABETIC PERIPHERAL AN 05/02/2018 ANANYA MONTELONGO MD Ot E78.00 PURE HYPERCHOLESTEROLEMIA, UNSPECIFIED 05/02/2018 ANANYA MONTELONGO MD Ot F17.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, OTHER TOBACCO PRODU 05/02/2018 ANANYA MONTELONGO MD, Ot F32.9 MAJOR DEPRESSIVE DISORDER, SINGLE EPISOD 05/02/2018 ANANYA MONTELONGO MD, Ot F41.9 ANXIETY DISORDER, UNSPECIFIED 05/02/2018 ANANYA MONTELONGO MD, Ot I10 ESSENTIAL (PRIMARY) HYPERTENSION 05/02/2018 ANANYA MONTELONGO MD Ot I25.10 ATHSCL HEART DISEASE OF [place] CORONARY 05/02/2018 ANANYA MONTELONGO MD, Ot I25.2 OLD MYOCARDIAL INFARCTION 05/02/2018 ANANYA MONTELONGO MD, Ot I73.9 PERIPHERAL VASCULAR DISEASE, UNSPECIFIED 05/02/2018 ANANYA MONTELONGO MD, Ot J69.0 PNEUMONITIS DUE TO INHALATION OF FOOD AN 05/02/2018 ANANYA MONTELONGO MD, Ot M62.82 RHABDOMYOLYSIS 05/02/2018 ANANYA MONTELONGO MD, Ot N17.9 ACUTE KIDNEY FAILURE, UNSPECIFIED 05/02/2018 ANANYA MONTELONGO MD, Ot R41.82 ALTERED MENTAL STATUS, UNSPECIFIED 05/02/2018 ANANYA MONTELONGO MD, Ot R79.89 OTHER SPECIFIED ABNORMAL FINDINGS OF BLO 05/02/2018 ANANYA MONTELONGO MD, Ot R93.0 ABNORMAL FINDINGS ON DX IMAGING OF SKULL 05/02/2018 ANANYA MONTELONGO MD, Ot S00.83XA CONTUSION OF OTHER PART OF HEAD, INITIAL 05/02/2018 ANANYA MONTELONGO MD, Ot X58.XXXA EXPOSURE TO OTHER SPECIFIED FACTORS, INI 05/02/2018 ANANYA MONTELONGO MD, Ot Z79.4 HAND COKE DRAWER (CURRENT) USE OF INSULIN 05/02/2018 ANANYA MONTELONGO MD, Ot Z79.82 HAND COKE DRAWER (CURRENT) USE OF ASPIRIN 05/02/2018 ANANYA MONTELONGO MD, Ot Z82.49 FAMILY HX OF ISCHEM HEART DIS AND OTH DI 05/02/2018 ANANYA MONTELONGO MD, Ot Z86.718 PERSONAL HISTORY OF OTHER VENOUS THROMBO 05/02/2018 ANANYA MONTELONGO MD, Ot Z89.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 05/02/2018 ANANYA MONTELONGO MD, Ot Z95.1 PRESENCE OF AORTOCORONARY BYPASS GRAFT 05/04/2018 ANANYA MONTELONGO MD, Ot D64.9 ANEMIA, UNSPECIFIED 05/04/2018 ANANYA MONTELONGO MD, Ot E03.9 HYPOTHYROIDISM, UNSPECIFIED 05/04/2018 ANANYA MONTELONGO MD, Ot E11.10 TYPE 2 DIABETES MELLITUS WITH KETOACIDOS 05/04/2018 ANANYA MONTELONGO MD, Ot E11.40 TYPE 2 DIABETES MELLITUS WITH DIABETIC N 05/04/2018 ANANYA MONTELONGO MD, Ot E11.51 TYPE 2 DIABETES W DIABETIC PERIPHERAL AN 05/04/2018 ANANYA MONTELONGO MD, Ot E78.00 PURE HYPERCHOLESTEROLEMIA, UNSPECIFIED 05/04/2018 ANANYA MONTELONGO MD Ot F17.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, OTHER TOBACCO PRODU 05/04/2018 ANANYA MONTELONGO MD, Ot F32.9 MAJOR DEPRESSIVE DISORDER, SINGLE EPISOD 05/04/2018 ANANYA MONTELONGO MD, Ot F41.9 ANXIETY DISORDER, UNSPECIFIED 05/04/2018 ANANYA MONTELONGO MD Ot I10 ESSENTIAL (PRIMARY) HYPERTENSION 05/04/2018 ANANYA MONTELONGO MD Ot I25.10 ATHSCL HEART DISEASE OF [place] CORONARY 05/04/2018 ANANYA MONTELONGO MD, Ot I25.2 OLD MYOCARDIAL INFARCTION 05/04/2018 ANANYA MONTELONGO MD, Ot I73.9 PERIPHERAL VASCULAR DISEASE, UNSPECIFIED 05/04/2018 ANANYA MONTELONGO MD Ot J69.0 PNEUMONITIS DUE TO INHALATION OF FOOD AN 05/04/2018 ANANYA MONTELONGO MD Ot M62.82 RHABDOMYOLYSIS 05/04/2018 ANANYA MONTELONGO MD, Ot N17.9 ACUTE KIDNEY FAILURE, UNSPECIFIED 05/04/2018 ANANYA MONTELONGO MD, Ot R41.82 ALTERED MENTAL STATUS, UNSPECIFIED 05/04/2018 ANANYA MONTELONGO MD Ot R79.89 OTHER SPECIFIED ABNORMAL FINDINGS OF BLO 05/04/2018 ANANYA MONTELONGO MD Ot R93.0 ABNORMAL FINDINGS ON DX IMAGING OF SKULL 05/04/2018 ANANYA MONTELONGO MD Ot S00.83XA CONTUSION OF OTHER PART OF HEAD, INITIAL 05/04/2018 ANANYA MONTELONGO MD Ot X58.XXXA EXPOSURE TO OTHER SPECIFIED FACTORS, INI 05/04/2018 ANANYA MONTELONGO MD Ot Z79.4 HAND COKE DRAWER (CURRENT) USE OF INSULIN 05/04/2018 ANANYA MONTELONGO MD, Ot Z79.82 SENIOR LIVING (CURRENT) USE OF ASPIRIN 05/04/2018 ANANYA MONTELONGO MD, Ot Z82.49 FAMILY HX OF ISCHEM HEART DIS AND OTH DI 05/04/2018 ANANYA MONTELONGO MD, Ot Z86.718 PERSONAL HISTORY OF OTHER VENOUS THROMBO 05/04/2018 ANANYA MONTELONGO MD Ot Z89.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 05/04/2018 ANANYA MONTELONGO MD Ot Z95.1 PRESENCE OF AORTOCORONARY BYPASS GRAFT 05/11/2018 ANANYA MONTELONGO MD, Ot D64.9 ANEMIA, UNSPECIFIED 05/11/2018 ANANYA MONTELONGO MD Ot E03.9 HYPOTHYROIDISM, UNSPECIFIED 05/11/2018 ANANYA MONTELONGO MD Ot E11.10 TYPE 2 DIABETES MELLITUS WITH KETOACIDOS 05/11/2018 ANANYA MONTELONGO MD Ot E11.40 TYPE 2 DIABETES MELLITUS WITH DIABETIC N 05/11/2018 ANANYA MONTELONGO MD, Ot E11.51 TYPE 2 DIABETES W DIABETIC PERIPHERAL AN 05/11/2018 ANANYA MONTELONGO MD Ot E78.00 PURE HYPERCHOLESTEROLEMIA, UNSPECIFIED 05/11/2018 ANANYA MONTELONGO MD Ot F17.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, OTHER TOBACCO PRODU 05/11/2018 ANANYA MONTELONGO MD, Ot F32.9 MAJOR DEPRESSIVE DISORDER, SINGLE EPISOD 05/11/2018 ANANYA MONTELONGO MD, Ot F41.9 ANXIETY DISORDER, UNSPECIFIED 05/11/2018 ANANYA MONTELONGO MD, Ot I10 ESSENTIAL (PRIMARY) HYPERTENSION 05/11/2018 ANANYA MONTELONGO MD Ot I25.10 ATHSCL HEART DISEASE OF [place] CORONARY 05/11/2018 ANANYA MONTELONGO MD Ot I25.2 OLD MYOCARDIAL INFARCTION 05/11/2018 ANANYA MONTELONGO MD Ot I73.9 PERIPHERAL VASCULAR DISEASE, UNSPECIFIED 05/11/2018 ANANYA MONTELONGO MD Ot J69.0 PNEUMONITIS DUE TO INHALATION OF FOOD AN 05/11/2018 ANANYA MONTELONGO MD Ot M62.82 RHABDOMYOLYSIS 05/11/2018 ANANYA MONTELONGO MD, Ot N17.9 ACUTE KIDNEY FAILURE, UNSPECIFIED 05/11/2018 ANANYA MONTELONGO MD Ot R41.82 ALTERED MENTAL STATUS, UNSPECIFIED 05/11/2018 ANANYA MONTELONGO MD Ot R79.89 OTHER SPECIFIED ABNORMAL FINDINGS OF BLO 05/11/2018 ANANYA MONTELONGO MD Ot R93.0 ABNORMAL FINDINGS ON DX IMAGING OF SKULL 05/11/2018 ANANYA MONTELONGO MD, Ot S00.83XA CONTUSION OF OTHER PART OF HEAD, INITIAL 05/11/2018 ANANYA MONTELONGO MD Ot X58.XXXA EXPOSURE TO OTHER SPECIFIED FACTORS, INI 05/11/2018 ANANYA MONTELONGO MD Ot Z79.4 HAND COKE DRAWER (CURRENT) USE OF INSULIN 05/11/2018 ANANYA MONTELONGO MD, Ot Z79.82 HAND COKE DRAWER (CURRENT) USE OF ASPIRIN 05/11/2018 ANANYA MONTELONGO MD, Ot Z82.49 FAMILY HX OF I[place]HEM HEART DIS AND OTH DI 05/11/2018 ANANYA MONTELONGO MD, Ot Z86.718 PERSONAL HISTORY OF OTHER VENOUS THROMBO 05/11/2018 ANANYA MONTELONGO MD, Ot Z89.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 05/11/2018 ANANYA MONTELONGO MD Ot Z95.1 PRESENCE OF AORTOCORONARY BYPASS GRAFT 05/13/2018 GRACE CURIEL MANUFACTURING ADVISOR-C Ot 250.4 0 DIAB W RENAL MANIFEST, TYPE II OR UNSPEC 05/13/2018 GRACE CURIEL MANUFACTURING ADVISOR-C Ot 263.9 PROTEIN-NADIA MALNUTR NOS 05/13/2018 GRACE CURIEL MANUFACTURING ADVISOR-C Ot 272.4 HYPERLIPIDEMIA NEC/NOS 05/13/2018 GRACE CURIEL MANUFACTURING ADVISOR-C Ot 276.2 ACIDOSIS 05/13/2018 NEWGRACE NP-C Ot 276.7 HYPERPOTASSEMIA 05/13/2018 GRACE CURIEL MANUFACTURING ADVISOR-C Ot 285.2 1 ANEMIA IN CHRONIC KIDNEY DISEASE 05/13/2018 GRACE CURIEL MANUFACTURING ADVISOR-C Ot 403.1 0 HYPTNSV CHR KID DIS, BENIGN, W CHR KD ST 05/13/2018 GRACE CURIEL MANUFACTURING ADVISOR-C Ot 585.3 CHRONIC KIDNEY DISEASE, STAGE III (MODER 05/13/2018 GRACE CURIEL MANUFACTURING ADVISOR-C Ot 588.8 1 SECONDARY HYPERPARATHYROIDISM (OF RENAL 05/13/2018 GRACE CURIEL MANUFACTURING ADVISOR-C Ot 791.0 PROTEINURIA 05/13/2018 HARRY SAMANO MENTAL MEASUREMENTS TEACHER Ot 250.00 DIAB VIGNESH WO COMPL, TYPE II OR UNSPEC TY 05/13/2018 HARRY SAMANO MENTAL MEASUREMENTS TEACHER Ot 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 05/13/2018 HARRY SAMANO MENTAL MEASUREMENTS TEACHER Ot 356.9 IDIO PERIPH NEURPTHY NOS 05/13/2018 HARRY SAMANO MENTAL MEASUREMENTS TEACHER Ot 585.3 CHRONIC KIDNEY DISEASE, STAGE III (MODER 05/13/2018 HARRY SAMANO MENTAL MEASUREMENTS TEACHER Ot V58.67 LONG-TERM (CURRENT) USE OF INSULIN 05/13/2018 HARRY SAMANO MENTAL MEASUREMENTS TEACHER Ot V58.69 OTH MED,LT,CURRENT USE 05/13/2018 JT FIGUEROA MD Ot 244.9 HYPOTHYROIDISM NOS 05/13/2018 JT FIGUEROA MD Ot 250.01 DIAB VIGNESH WO COMPL, TYPE I [JUVENILE TYP 05/13/2018 JT FIGUEROA MD Ot 272.4 HYPERLIPIDEMIA NEC/NOS 05/13/2018 GRACE CURIEL MANUFACTURING ADVISOR-C Ot 250.4 0 DIAB W RENAL MANIFEST, TYPE II OR UNSPEC 05/13/2018 GRACE CURIEL MANUFACTURING ADVISOR-C Ot 263.9 PROTEIN-NADIA MALNUTR NOS 05/13/2018 GRACE CURIEL MANUFACTURING ADVISOR-C Ot 272.4 HYPERLIPIDEMIA NEC/NOS 05/13/2018 GRACE CURIEL MANUFACTURING ADVISOR-C Ot 276.7 HYPERPOTASSEMIA 05/13/2018 GRACE CURIEL MANUFACTURING ADVISOR-C Ot 285.2 1 ANEMIA IN CHRONIC KIDNEY DISEASE 05/13/2018 GRACE CURIEL MANUFACTURING ADVISOR-C Ot 403.1 0 HYPTNSV CHR KID DIS, BENIGN, W CHR KD ST 05/13/2018 GRACE CURIEL MANUFACTURING ADVISOR-C Ot 585.3 CHRONIC KIDNEY DISEASE, STAGE III (MODER 05/13/2018 GRACE CURIEL MANUFACTURING ADVISOR-C Ot 588.8 1 SECONDARY HYPERPARATHYROIDISM (OF RE[place] 05/13/2018 GRACE CURIEL MANUFACTURING ADVISOR-C Ot 791.0 PROTEINURIA 05/13/2018 NEWGRACE MANUFACTURING ADVISOR-C Ot 250.4 0 DIAB W RENAL MANIFEST, TYPE II OR UNSPEC 05/13/2018 GRACE CURIEL MANUFACTURING ADVISOR-C Ot 263.9 PROTEIN-NADIA MALNUTR NOS 05/13/2018 NEW, GRACE Diego. MANUFACTURING ADVISOR-C Ot 272.4 HYPERLIPIDEMIA NEC/NOS 05/13/2018 NEW, GRACE G. MANUFACTURING ADVISOR-C Ot 276.3 ALKALOSIS 05/13/2018 NEW, GRACE G. MANUFACTURING ADVISOR-C Ot 276.7 HYPERPOTASSEMIA 05/13/2018 NEW, GRACE G. MANUFACTURING ADVISOR-C Ot 285.2 1 ANEMIA IN CHRONIC KIDNEY DISEASE 05/13/2018 NEW, GRACE DiegoLatonya MANUFACTURING ADVISOR-C Ot 403.1 0 HYPTNSV CHR KID DIS, BENIGN, W CHR KD ST 05/13/2018 NEW, GRACE Diego. MANUFACTURING ADVISOR-C Ot 585.3 CHRONIC KIDNEY DISEASE, STAGE III (MODER 05/13/2018 NEW, GRACE DiegoLatonya MANUFACTURING ADVISOR-C Ot 588.8 1 SECONDARY HYPERPARATHYROIDISM (OF [place] 05/13/2018 NEW, GRACE DiegoLatonya MANUFACTURING ADVISOR-C Ot 791.0 PROTEINURIA 05/13/2018 Ot 250.40 DANIEL B W RENAL MANIFEST, TYPE II OR UNSPEC 05/13/2018 Ot 263.9 PROT EIN-NADIA MALNUTR NOS 05/13/2018 Ot 272.4 HYPE RLIPIDEMIA NEC/NOS 05/13/2018 Ot 276.3 PINA LOSIS 05/13/2018 Ot 276.7 HYPE RPOTASSEMIA 05/13/2018 Ot 285.21 ANE DONNA IN CHRONIC KIDNEY DISEASE 05/13/2018 Ot 403.10 HYP TNSV CHR KID DIS, BENIGN, W CHR KD ST 05/13/2018 Ot 585.3 CONTROL CLERK KATHY KIDNEY DISEASE, STAGE III (MODER 05/13/2018 Ot 588.81 SEC ONDARY HYPERPARATHYROIDISM (OF [place] 05/13/2018 Ot 791.0 PROT EINURIA 05/13/2018 Ot 244.9 HYPO THYROIDISM NOS 05/13/2018 Ot 250.92 DANIEL B W UNSPEC COMPL, TYPE II OR UNSPEC T 05/13/2018 Ot 250.40 DANIEL B W RENAL MANIFEST, TYPE II OR UNSPEC 05/13/2018 Ot 263.9 PROT EIN-NADIA MALNUTR NOS 05/13/2018 Ot 272.4 HYPE RLIPIDEMIA NEC/NOS 05/13/2018 Ot 276.3 PINA LOSIS 05/13/2018 Ot 276.7 HYPE RPOTASSEMIA 05/13/2018 Ot 285.21 ANE DONNA IN CHRONIC KIDNEY DISEASE 05/13/2018 Ot 403.10 HYP TNSV CHR KID DIS, BENIGN, W CHR KD ST 05/13/2018 Ot 585.3 CONTROL CLERK KATHY KIDNEY DISEASE, STAGE III (MODER 05/13/2018 Ot 588.81 SEC ONDARY HYPERPARATHYROIDISM (OF [place] 05/13/2018 Ot 791.0 PROT EINURIA 05/13/2018 JT FIGUEROA MD Ot 244.8 ACQUIRED HYPOTHYROID NEC 05/13/2018 JT FIGUEROA MD Ot 246.8 DISORDERS OF THYROID NEC 05/13/2018 JT FIGUEROA MD Ot 250.93 DIAB W UNSPEC COMPL, TYPE I [JUVENILE TY 05/13/2018 LIZY WHITNEY Ot 250.00 DIAB VIGNESH WO COMPL, TYPE II OR UNSPEC TY 05/13/2018 LIZY WHITNEY Ot 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 05/13/2018 LIZY WHITNEY Ot 356.9 IDIO PERIPH NEURPTHY NOS 05/13/2018 LIZY WHITNEY Ot 585.3 CHRONIC KIDNEY DISEASE, STAGE III (MODER 05/13/2018 LIZY WHITNEY Ot V58.67 LONG-TERM (CURRENT) USE OF INSULIN 05/13/2018 LIZY WHITNEY Ot V58.69 OT MED,LT,CURRENT USE 05/13/2018 HARRY SAMANOP Ot D47.2 MONOCLONAL GAMMOPATHY 05/13/2018 HARRY SAMANO MENTAL MEASUREMENTS TEACHER Ot E11.9 TYPE 2 DIABETES MELLITUS WITHOUT COMPLIC 05/13/2018 HARRY SAMANO MENTAL MEASUREMENTS TEACHER Ot G60.9 HEREDITARY AND IDIOPATHIC NEUROPATHY, UN 05/13/2018 HARRY SAMANO MENTAL MEASUREMENTS TEACHER Ot N18.3 CHRONIC KIDNEY DISEASE, STAGE 3 (MODERAT 05/13/2018 HARRY SAMANO MENTAL MEASUREMENTS TEACHER Ot Z79.4 SENIOR LIVING (CURRENT) USE OF INSULIN 05/13/2018 HARRY SAMANOP Ot Z79.899 OTHER HAND COKE DRAWER (CURRENT) DRUG THERAPY 05/13/2018 GRACE CURIEL MANUFACTURING ADVISOR-C Ot D63.1 ANEMIA IN CHRONIC KIDNEY DISEASE 05/13/2018 GRACE CURIEL MANUFACTURING ADVISOR-C Ot E11.2 9 TYPE 2 DIABETES MELLITUS W OTH DIABETIC 05/13/2018 NEW, GRACE G. MANUFACTURING ADVISOR-C Ot E46 UNSPECIFIED PROTEIN-[place] MALNUTRITION 05/13/2018 NEW, GRACE G. MANUFACTURING ADVISOR-C Ot E87.5 HYPERKALEMIA 05/13/2018 NEW, GRACE G. MANUFACTURING ADVISOR-C Ot I12.9 HYPERTENSIVE CHRONIC KIDNEY DISEASE W ST 05/13/2018 NEW, GRACE G. MANUFACTURING ADVISOR-C Ot N18.3 CHRONIC KIDNEY DISEASE, STAGE 3 (MODERAT 05/13/2018 NEW, GRACE G. MANUFACTURING ADVISOR-C Ot N25.8 1 SECONDARY HYPERPARATHYROIDISM OF RENAL O 05/13/2018 NEW, GRACE G. MANUFACTURING ADVISOR-C Ot R80.9 PROTEINURIA, UNSPECIFIED 05/13/2018 CAROLINA PAYAN, JT Negrete Ot E03.8 OTHER SPECIFIED HYPOTHYROIDISM 05/13/2018 NEW, GRACE G. MANUFACTURING ADVISOR-C Ot D47.2 MONOCLONAL GAMMOPATHY 05/13/2018 NEW, GRACE G. MANUFACTURING ADVISOR-C Ot D61.8 18 OTHER PANCYTOPENIA 05/13/2018 NEW, GRACE G. MANUFACTURING ADVISOR-C Ot D63.1 ANEMIA IN CHRONIC KIDNEY DISEASE 05/13/2018 NEW, GRACE G. MANUFACTURING ADVISOR-C Ot E11.2 9 TYPE 2 DIABETES MELLITUS W OTH DIABETIC 05/13/2018 NEW, GRACE G. MANUFACTURING ADVISOR-C Ot E44.1 MILD PROTEIN-[place] MALNUTRITION 05/13/2018 NEW, GRACE G. MANUFACTURING ADVISOR-C Ot E78.5 HYPERLIPIDEMIA, UNSPECIFIED 05/13/2018 NEW, GRACE G. MANUFACTURING ADVISOR-C Ot E87.3 ALKALOSIS 05/13/2018 NEW, GRACE G. MANUFACTURING ADVISOR-C Ot E87.5 HYPERKALEMIA 05/13/2018 NEW, GRACE G. MANUFACTURING ADVISOR-C Ot I12.9 HYPERTENSIVE CHRONIC KIDNEY DISEASE W ST 05/13/2018 NEW, GRACE G. MANUFACTURING ADVISOR-C Ot N18.3 CHRONIC KIDNEY DISEASE, STAGE 3 (MODERAT 05/13/2018 NEW, GRACE G. MANUFACTURING ADVISOR-C Ot N25.8 1 SECONDARY HYPERPARATHYROIDISM OF RENAL O 05/13/2018 NEW, GRACE G. MANUFACTURING ADVISOR-C Ot R80.9 PROTEINURIA, UNSPECIFIED 05/13/2018 NEW, GRACE G. MANUFACTURING ADVISOR-C Ot D47.2 MONOCLONAL GAMMOPATHY 05/13/2018 NEW, GRACE G. MANUFACTURING ADVISOR-C Ot D61.8 18 OTHER PANCYTOPENIA 05/13/2018 NEW, GRACE CortezLatonya MANUFACTURING ADVISOR-C Ot D63.1 ANEMIA IN CHRONIC KIDNEY DISEASE 05/13/2018 NEW, GRACE DiegoLatonya MANUFACTURING ADVISOR-C Ot E11.2 2 TYPE 2 DIABETES MELLITUS W DIABETIC CONTROL CLERK 05/13/2018 NEW, GRACE CortezLatonya MANUFACTURING ADVISOR-C Ot E44.1 MILD PROTEIN-[place] MALNUTRITION 05/13/2018 NEW, GRACE CortezLatonya MANUFACTURING ADVISOR-C Ot E78.5 HYPERLIPIDEMIA, UNSPECIFIED 05/13/2018 NEW, GRACE CortezLatonya MANUFACTURING ADVISOR-C Ot E87.3 ALKALOSIS 05/13/2018 NEW, GRACE GLatonya MANUFACTURING ADVISOR-C Ot E87.5 HYPERKALEMIA 05/13/2018 NEW, GRACE CortezLatonya MANUFACTURING ADVISOR-C Ot I12.9 HYPERTENSIVE CHRONIC KIDNEY DISEASE W ST 05/13/2018 NEW, GRACE CortezLatonya MANUFACTURING ADVISOR-C Ot N18.3 CHRONIC KIDNEY DISEASE, STAGE 3 (MODERAT 05/13/2018 NEW, GRACE CortezLatonya MANUFACTURING ADVISOR-C Ot N25.8 1 SECONDARY HYPERPARATHYROIDISM OF RENAL O 05/13/2018 NEW, GRACE GLatonya MANUFACTURING ADVISOR-C Ot R80.9 PROTEINURIA, UNSPECIFIED 05/13/2018 FROILAN DO, RAINER F Ot S82.851A DISPLACED TRIMALLEOLAR FRACTURE OF RIGHT 05/13/2018 FROILAN DO, RAINER F Ot X58.XXXA EXPOSURE TO OTHER SPECIFIED FACTORS, INI 05/13/2018 FROILAN DO, RAINER F Ot Y99.8 OTHER EXTERNAL CAUSE STATUS 05/13/2018 FROILAN DO, RAINER F Ot Z79.01 HAND COKE DRAWER (CURRENT) USE OF ANTICOAGULANT 05/13/2018 LIZY WHITNEY Ot M84.363 A STRESS FRACTURE, RIGHT FIBULA, INIT ENCN 05/13/2018 LIZY WHITNEY Ot M84.371 A STRESS FRACTURE, RIGHT ANKLE, INITIAL EN 05/13/2018 LIZY WHITNEY Ot M85.88 OTH DISRD OF BONE DENSITY AND STRUCTURE, 05/13/2018 JT FIGUEROA MD Ot E03.4 ATROPHY OF THYROID (ACQUIRED) 05/13/2018 JT FIGUEROA MD Ot E10.8 TYPE 1 DIABETES MELLITUS WITH UNSPECIFIE 05/13/2018 NEW, GRACE Rivera MANUFACTURING ADVISOR-C Ot D47.2 MONOCLONAL GAMMOPATHY 05/13/2018 NEW, GRACE Diego. MANUFACTURING ADVISOR-C Ot D61.8 18 OTHER PANCYTOPENIA 05/13/2018 NEW, GRACE G. MANUFACTURING ADVISOR-C Ot D63.1 ANEMIA IN CHRONIC KIDNEY DISEASE 05/13/2018 NEW, GRACE G. MANUFACTURING ADVISOR-C Ot E11.2 9 TYPE 2 DIABETES MELLITUS W OTH DIABETIC 05/13/2018 NEW, GRACE G. MANUFACTURING ADVISOR-C Ot E44.1 MILD PROTEIN-[place] MALNUTRITION 05/13/2018 NEW, GRACE G. MANUFACTURING ADVISOR-C Ot E78.5 HYPERLIPIDEMIA, UNSPECIFIED 05/13/2018 NEW, GRACE G. MANUFACTURING ADVISOR-C Ot E87.3 ALKALOSIS 05/13/2018 NEW, GRACE G. MANUFACTURING ADVISOR-C Ot E87.5 HYPERKALEMIA 05/13/2018 NEW, GRACE G. MANUFACTURING ADVISOR-C Ot I12.9 HYPERTENSIVE CHRONIC KIDNEY DISEASE W ST 05/13/2018 NEW, GRACE G. MANUFACTURING ADVISOR-C Ot N18.3 CHRONIC KIDNEY DISEASE, STAGE 3 (MODERAT 05/13/2018 NEW, GRACE G. MANUFACTURING ADVISOR-C Ot N25.8 1 SECONDARY HYPERPARATHYROIDISM OF RENAL O 05/13/2018 NEW, GRACE G. MANUFACTURING ADVISOR-C Ot R80.9 PROTEINURIA, UNSPECIFIED 05/13/2018 JT FIGUEROA MD Ot E03.4 ATROPHY OF THYROID (ACQUIRED) 05/13/2018 JT FIGUEROA MD Ot E10.8 TYPE 1 DIABETES MELLITUS WITH UNSPECIFIE 05/13/2018 NEW, GRACE G. MANUFACTURING ADVISOR-C Ot D47.2 MONOCLONAL GAMMOPATHY 05/13/2018 NEW, GRACE G. MANUFACTURING ADVISOR-C Ot D61.8 18 OTHER PANCYTOPENIA 05/13/2018 NEW, GRACE G. MANUFACTURING ADVISOR-C Ot D63.1 ANEMIA IN CHRONIC KIDNEY DISEASE 05/13/2018 NEW, GRACE G. MANUFACTURING ADVISOR-C Ot E03.4 ATROPHY OF THYROID (ACQUIRED) 05/13/2018 NEW, GRACE G. MANUFACTURING ADVISOR-C Ot E11.2 2 TYPE 2 DIABETES MELLITUS W DIABETIC CONTROL CLERK 05/13/2018 NEW, GRACE G. MANUFACTURING ADVISOR-C Ot E44.1 MILD PROTEIN-[place] MALNUTRITION 05/13/2018 NEW, GRACE G. MANUFACTURING ADVISOR-C Ot E78.5 HYPERLIPIDEMIA, UNSPECIFIED 05/13/2018 NEW, GRACE G. MANUFACTURING ADVISOR-C Ot E87.3 ALKALOSIS 05/13/2018 NEW, GRACE G. MANUFACTURING ADVISOR-C Ot E87.5 HYPERKALEMIA 05/13/2018 GRACE CURIEL MANUFACTURING ADVISOR-C Ot I12.9 HYPERTENSIVE CHRONIC KIDNEY DISEASE W ST 05/13/2018 GRACE CUREIL MANUFACTURING ADVISOR-C Ot N18.3 CHRONIC KIDNEY DISEASE, STAGE 3 (MODERAT 05/13/2018 MOISÉS GRACE CortezLatonya MANUFACTURING ADVISOR-C Ot N25.8 1 SECONDARY HYPERPARATHYROIDISM OF RENAL O 05/13/2018 GRACE CURIEL MANUFACTURING ADVISOR-C Ot R80.9 PROTEINURIA, UNSPECIFIED 05/13/2018 DUYEN PAYAN, SKYLAR R Ot E78. 2 MIXED HYPERLIPIDEMIA 05/13/2018 LIZY WHITNEY N Ot D47.2 MONOCLONAL GAMMOPATHY 05/13/2018 LIZY WHITNEY N Ot D63.8 ANEMIA IN OTHER CHRONIC DISEASES CLASSIF 05/13/2018 LIZY WHITNEY N Ot E03.9 HYPOTHYROIDISM, UNSPECIFIED 05/13/2018 LIZY WHITNEY N Ot E11.22 TYPE 2 DIABETES MELLITUS W DIABETIC CONTROL CLERK 05/13/2018 LIZY WHITNEY N Ot E78.00 PURE HYPERCHOLESTEROLEMIA, UNSPECIFIED 05/13/2018 LIZY WHITNEY N Ot G60.9 HEREDITARY AND IDIOPATHIC NEUROPATHY, UN 05/13/2018 LIZY WHITNEY N Ot I25.10 ATHSCL HEART DISEASE OF [place] CORONARY 05/13/2018 LIZY WHITNEY N Ot I25.2 OLD MYOCARDIAL INFARCTION 05/13/2018 LIZY WHITNEY N Ot M85.80 OTH DISRD OF BONE DENSITY AND STRUCTURE, 05/13/2018 LIZY WHITNEY N Ot N18.3 CHRONIC KIDNEY DISEASE, STAGE 3 (MODERAT 05/13/2018 LIZY WHITNEY N Ot Z79.4 SENIOR LIVING (CURRENT) USE OF INSULIN 05/13/2018 LIZY WHITNEY N Ot Z79.899 OTHER HAND COKE DRAWER (CURRENT) DRUG THERAPY 05/13/2018 LIZY WHITNEY N Ot Z89.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 05/13/2018 ELMER PAYAN, OWEN Negrete Ot D64.9 ANEMIA, UNSPECIFIED 05/13/2018 ELMER PAYAN, OWEN Negrete Ot E03.9 HYPOTHYROIDISM, UNSPECIFIED 05/13/2018 ELMER PAYAN, OWEN Negrete Ot E11.40 TYPE 2 DIABETES MELLITUS WITH DIABETIC N 05/13/2018 OWEN PAYNE MD, Ot E11.9 TYPE 2 DIABETES MELLITUS WITHOUT COMPLIC 05/13/2018 OWEN PAYNE MD, Ot E78.00 PURE HYPERCHOLESTEROLEMIA, UNSPECIFIED 05/13/2018 OWEN PAYNE MD, Ot F32.9 MAJOR DEPRESSIVE DISORDER, SINGLE EPISOD 05/13/2018 OWEN PAYNE MD, Ot F41.9 ANXIETY DISORDER, UNSPECIFIED 05/13/2018 OWEN PAYNE MD, Ot I10 ESSENTIAL (PRIMARY) HYPERTENSION 05/13/2018 OWEN PAYNE MD, Ot I25.10 ATHSCL HEART DISEASE OF [place] CORONARY 05/13/2018 OWEN PAYNE MD, Ot I25.2 OLD MYOCARDIAL INFARCTION 05/13/2018 OWEN PAYNE MD, Ot I73.9 PERIPHERAL VASCULAR DISEASE, UNSPECIFIED 05/13/2018 OWEN PAYNE MD, Ot Z46.6 ENCOUNTER FOR FITTING AND ADJUSTMENT OF 05/13/2018 OWEN PAYNE MD, Ot Z79.4 HAND COKE DRAWER (CURRENT) USE OF INSULIN 05/13/2018 OWEN PAYNE MD, Ot Z79.82 SENIOR LIVING (CURRENT) USE OF ASPIRIN 05/13/2018 OWEN PAYNE MD, Ot Z82.49 FAMILY HX OF ISCHEM HEART DIS AND OTH DI 05/13/2018 OWEN PAYNE MD, Ot Z86.711 PERSONAL HISTORY OF PULMONARY EMBOLISM 05/13/2018 OWEN PAYNE MD, Ot Z89.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 05/13/2018 OWEN PAYNE MD, Ot Z95.1 PRESENCE OF AORTOCORONARY BYPASS GRAFT 05/13/2018 OWEN PAYNE MD, Ot Z98.890 OTHER SPECIFIED POSTPROCEDURAL STATES 05/14/2018 LIZY WHITNEY Ot D47.2 MONOCLONAL GAMMOPATHY 05/14/2018 LIZY WHITNEY Ot D63.8 ANEMIA IN OTHER CHRONIC DISEASES CLASSIF 05/14/2018 LIZY WHITNEY Ot E03.9 HYPOTHYROIDISM, UNSPECIFIED 05/14/2018 LIZY WHITNEY Ot E11.22 TYPE 2 DIABETES MELLITUS W DIABETIC CONTROL CLERK 05/14/2018 LIZY WHITNEY Ot E78.00 PURE HYPERCHOLESTEROLEMIA, UNSPECIFIED 05/14/2018 LIZY WHITNEY Ot G60.9 HEREDITARY AND IDIOPATHIC NEUROPATHY, UN 05/14/2018 LIZY WHITNEY Ot I25.10 ATHSCL HEART DISEASE OF [place] CORONARY 05/14/2018 LIZY WHITNEY Peña Ot I25.2 OLD MYOCARDIAL INFARCTION 05/14/2018 LIZY WHITNEY Ot M85.80 OTH DISRD OF BONE DENSITY AND STRUCTURE, 05/14/2018 LIZY WHITNEY Ot N18.3 CHRONIC KIDNEY DISEASE, STAGE 3 (MODERAT 05/14/2018 LIZY WHITNEY Ot Z79.4 HAND COKE DRAWER (CURRENT) USE OF INSULIN 05/14/2018 LIZY WHITNEY Peña Ot Z79.899 OTHER SENIOR LIVING (CURRENT) DRUG THERAPY 05/14/2018 LIZY WHITNEY Peña Ot Z89.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 05/15/2018 OWEN PAYNE MD Ot D64.9 ANEMIA, UNSPECIFIED 05/15/2018 OWEN PAYNE MD Ot E03.9 HYPOTHYROIDISM, UNSPECIFIED 05/15/2018 OWEN PAYNE MD Ot E11.40 TYPE 2 DIABETES MELLITUS WITH DIABETIC N 05/15/2018 OWEN PAYNE MD Ot E11.9 TYPE 2 DIABETES MELLITUS WITHOUT COMPLIC 05/15/2018 OWEN PAYNE MD Ot E78.00 PURE HYPERCHOLESTEROLEMIA, UNSPECIFIED 05/15/2018 OWEN PAYNE MD Ot F32.9 MAJOR DEPRESSIVE DISORDER, SINGLE EPISOD 05/15/2018 OWEN PAYNE MD Ot F41.9 ANXIETY DISORDER, UNSPECIFIED 05/15/2018 OWEN PAYNE MD Ot I10 ESSENTIAL (PRIMARY) HYPERTENSION 05/15/2018 OWEN PAYNE MD Ot I25.10 ATHSCL HEART DISEASE OF [place] CORONARY 05/15/2018 OWEN PAYNE MD, Ot I25.2 OLD MYOCARDIAL INFARCTION 05/15/2018 OWEN PAYNE MD Ot I73.9 PERIPHERAL VASCULAR DISEASE, UNSPECIFIED 05/15/2018 OWEN PAYNE MD Ot Z46.6 ENCOUNTER FOR FITTING AND ADJUSTMENT OF 05/15/2018 OWEN PAYNE MD Ot Z79.4 HAND COKE DRAWER (CURRENT) USE OF INSULIN 05/15/2018 OWEN PAYNE MD, Ot Z79.82 SENIOR LIVING (CURRENT) USE OF ASPIRIN 05/15/2018 OWEN PAYNE MD, Ot Z82.49 FAMILY HX OF ISCHEM HEART DIS AND OTH DI 05/15/2018 OWEN PAYNE MD, Ot Z86.711 PERSONAL HISTORY OF PULMONARY EMBOLISM 05/15/2018 OWEN PAYNE MD, Ot Z89.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 05/15/2018 OWEN PAYNE MD, Ot Z95.1 PRESENCE OF AORTOCORONARY BYPASS GRAFT 05/15/2018 OWEN PAYNE MD, Ot Z98.890 OTHER SPECIFIED POSTPROCEDURAL STATES 05/15/2018 LIZY WHITNEY Ot D47.2 MONOCLONAL GAMMOPATHY 05/15/2018 LIZY WHITNEY Ot D63.8 ANEMIA IN OTHER CHRONIC DISEASES CLASSIF 05/15/2018 LIZY WHITNEY Ot E03.9 HYPOTHYROIDISM, UNSPECIFIED 05/15/2018 LIZY WHITNEY Ot E11.22 TYPE 2 DIABETES MELLITUS W DIABETIC CONTROL CLERK 05/15/2018 LIZY WHITNEY Ot E78.00 PURE HYPERCHOLESTEROLEMIA, UNSPECIFIED 05/15/2018 LIZY WHITNEY Ot G60.9 HEREDITARY AND IDIOPATHIC NEUROPATHY, UN 05/15/2018 LIZY WHITNEY Ot I25.10 ATHSCL HEART DISEASE OF [place] CORONARY 05/15/2018 LIZY WHITNEY Ot I25.2 OLD MYOCARDIAL INFARCTION 05/15/2018 LIZY WHITNEY Ot M85.80 OTH DISRD OF BONE DENSITY AND STRUCTURE, 05/15/2018 LIZY WHITNEY Ot N18.3 CHRONIC KIDNEY DISEASE, STAGE 3 (MODERAT 05/15/2018 LIZY WHITNEY Ot Z79.4 SENIOR LIVING (CURRENT) USE OF INSULIN 05/15/2018 LIZY WHITNEY Ot Z79.899 OTHER HAND COKE DRAWER (CURRENT) DRUG THERAPY 05/15/2018 LIZY WHITNEY Ot Z89.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 05/26/2018 ARSLAN AKHTAR MD Ot D64.9 ANEMIA, UNSPECIFIED 05/26/2018 ARSLAN AKHTAR MD, Ot D69.6 THROMBOCYTOPENIA, UNSPECIFIED 05/26/2018 ARSLAN AKHTAR MD Ot E03.9 HYPOTHYROIDISM, UNSPECIFIED 05/26/2018 ARSLAN AKHTAR MD Ot E10.42 TYPE 1 DIABETES MELLITUS WITH DIABETIC P 05/26/2018 ARSLAN AKHTAR MD Ot E78.00 PURE HYPERCHOLESTEROLEMIA, UNSPECIFIED 05/26/2018 ARSLAN AKHTAR MD Ot F32.9 MAJOR DEPRESSIVE DISORDER, SINGLE EPISOD 05/26/2018 ARSLAN AKHTAR MD Ot F41.9 ANXIETY DISORDER, UNSPECIFIED 05/26/2018 ARSLAN AKHTAR MD Ot I10 ESSENTIAL (PRIMARY) HYPERTENSION 05/26/2018 ARSLAN AKHTAR MD, Ot I25.10 ATHSCL HEART DISEASE OF [place] CORONARY 05/26/2018 ARSLAN AKHTAR MD, Ot I25.2 OLD MYOCARDIAL INFARCTION 05/26/2018 ARSLAN AKHTAR MD, Ot N28.9 DISORDER OF KIDNEY AND URETER, UNSPECIFI 05/26/2018 ARSLAN AKHTAR MD Ot R94.5 ABNORMAL RESULTS OF LIVER FUNCTION STUDI 05/26/2018 ARSLAN AKHTAR MD Ot Z79.4 HAND COKE DRAWER (CURRENT) USE OF INSULIN 05/26/2018 ARSLAN AKHTAR MD Ot Z79.82 HAND COKE DRAWER (CURRENT) USE OF ASPIRIN 05/26/2018 ARSLAN AKHTAR MD Ot Z79.899 OTHER SENIOR LIVING (CURRENT) DRUG THERAPY 05/26/2018 ARSLAN AKHTAR MD, Ot Z86.718 PERSONAL HISTORY OF OTHER VENOUS THROMBO 05/26/2018 ARSLAN AKHTAR MD Ot Z87.891 PERSONAL HISTORY OF NICOTINE DEPENDENCE 05/26/2018 ARSLAN AKHTAR MD Ot Z89.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 05/26/2018 ARSLAN AKHTAR MD Ot Z95.1 PRESENCE OF AORTOCORONARY BYPASS GRAFT 05/26/2018 ARSLAN AKHTAR MD Ot D64.9 ANEMIA, UNSPECIFIED 05/26/2018 ARSLAN AKHTAR MD Ot D69.6 THROMBOCYTOPENIA, UNSPECIFIED 05/26/2018 ARSLAN AKHTAR MD Ot E03.9 HYPOTHYROIDISM, UNSPECIFIED 05/26/2018 ARSLAN AKHTAR MD Ot E10.42 TYPE 1 DIABETES MELLITUS WITH DIABETIC P 05/26/2018 ARSLAN AKHTAR MD Ot E78.00 PURE HYPERCHOLESTEROLEMIA, UNSPECIFIED 05/26/2018 ARSLAN AKHTAR MD, Ot F32.9 MAJOR DEPRESSIVE DISORDER, SINGLE EPISOD 05/26/2018 ARSLAN AKHTAR MD, Ot F41.9 ANXIETY DISORDER, UNSPECIFIED 05/26/2018 ARSLAN AKHTAR MD, Ot I10 ESSENTIAL (PRIMARY) HYPERTENSION 05/26/2018 ARSLAN AKHTAR MD, Ot I25.10 ATHSCL HEART DISEASE OF [place] CORONARY 05/26/2018 ARSLAN AKHTAR MD, Ot I25.2 OLD MYOCARDIAL INFARCTION 05/26/2018 ARSLAN AKHTAR MD, Ot N28.9 DISORDER OF KIDNEY AND URETER, UNSPECIFI 05/26/2018 ARSLAN AKHTAR MD, Ot R94.5 ABNORMAL RESULTS OF LIVER FUNCTION STUDI 05/26/2018 ARSLAN AKHTAR MD, Ot Z79.4 HAND COKE DRAWER (CURRENT) USE OF INSULIN 05/26/2018 ARSLAN AKHTAR MD, Ot Z79.82 SENIOR LIVING (CURRENT) USE OF ASPIRIN 05/26/2018 ARSLAN AKHTAR MD, Ot Z79.899 OTHER HAND COKE DRAWER (CURRENT) DRUG THERAPY 05/26/2018 ARSLAN AKHTAR MD, Ot Z86.718 PERSONAL HISTORY OF OTHER VENOUS THROMBO 05/26/2018 ARSLAN AKHTAR MD, Ot Z87.891 PERSONAL HISTORY OF NICOTINE DEPENDENCE 05/26/2018 ARSLAN AKHTAR MD, Ot Z89.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 05/26/2018 ARSLAN AKHTAR MD Ot Z95.1 PRESENCE OF AORTOCORONARY BYPASS GRAFT 07/01/2018 LIZY WHITNEY Ot D47.2 MONOCLONAL GAMMOPATHY 07/01/2018 LIZY WHITNEY Ot D63.8 ANEMIA IN OTHER CHRONIC DISEASES CLASSIF 07/01/2018 LIZY WHITNEY Ot E03.9 HYPOTHYROIDISM, UNSPECIFIED 07/01/2018 LIZY WHITNEY Ot E11.22 TYPE 2 DIABETES MELLITUS W DIABETIC CONTROL CLERK 07/01/2018 LIZY WHITNEY Ot E78.00 PURE HYPERCHOLESTEROLEMIA, UNSPECIFIED 07/01/2018 LIZY WHITNEY Ot G60.9 HEREDITARY AND IDIOPATHIC NEUROPATHY, UN 07/01/2018 LIZY WHITNEY Ot I25.10 ATHSCL HEART DISEASE OF [place] CORONARY 07/01/2018 LIZY WHITNEY Peña Ot I25.2 OLD MYOCARDIAL INFARCTION 07/01/2018 LIZY WHITNEY Ot M85.80 OTH DISRD OF BONE DENSITY AND STRUCTURE, 07/01/2018 LIZY WHITNEY Peña Ot N18.3 CHRONIC KIDNEY DISEASE, STAGE 3 (MODERAT 07/01/2018 LIZY WHITNEY Peña Ot Z79.4 HAND COKE DRAWER (CURRENT) USE OF INSULIN 07/01/2018 LIZY WHITNEY Peña Ot Z79.899 OTHER SENIOR LIVING (CURRENT) DRUG THERAPY 07/01/2018 LIZY WHITNEY Peña Ot Z89.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 07/04/2018 RADHA SCOTT MD, Ot D64. 9 ANEMIA, UNSPECIFIED 07/04/2018 RADHA SCOTT MD, Ot E03. 9 HYPOTHYROIDISM, UNSPECIFIED 07/04/2018 RADHA SCOTT MD, Ot E10. 40 TYPE 1 DIABETES MELLITUS WITH DIABETIC N 07/04/2018 RADHA SCOTT MD, Ot E10. 51 TYPE 1 DIABETES W DIABETIC PERIPHERAL AN 07/04/2018 RADHA SCOTT MD, Ot E21. 5 DISORDER OF PARATHYROID GLAND, UNSPECIFI 07/04/2018 RADHA SCOTT MD, Ot E78. 00 PURE HYPERCHOLESTEROLEMIA, UNSPECIFIED 07/04/2018 RADHA SCOTT MD, Ot F32. 9 MAJOR DEPRESSIVE DISORDER, SINGLE EPISOD 07/04/2018 RADHA SCOTT MD, Ot F41. 9 ANXIETY DISORDER, UNSPECIFIED 07/04/2018 RADHA SCOTT MD, Ot I13. 0 HYP HRT CHR [place] DIS W HRT FAIL AND ST 07/04/2018 RADHA SCOTT MD, Ot I25. 10 ATHSCL HEART DISEASE OF [place] CORONARY 07/04/2018 RADHA SCOTT MD, Ot I25. 2 OLD MYOCARDIAL INFARCTION 07/04/2018 RADHA SCOTT MD, Ot I50. 23 ACUTE ON CHRONIC SYSTOLIC (CONGESTIVE) H 07/04/2018 RADHA SCOTT MD, Ot N18. 9 CHRONIC KIDNEY DISEASE, UNSPECIFIED 07/04/2018 RADHA SCOTT MD, Ot R07. 89 OTHER CHEST PAIN 07/04/2018 RADHA SCOTT MD, Ot Z79. 4 HAND COKE DRAWER (CURRENT) USE OF INSULIN 07/04/2018 RADHA SCOTT MD, Ot Z79. 82 HAND COKE DRAWER (CURRENT) USE OF ASPIRIN 07/04/2018 RADHA SCOTT MD, Ot Z86.718 PERSONAL HISTORY OF OTHER VENOUS THROMBO 07/04/2018 RADHA SCOTT MD, Ot Z89.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 07/04/2018 RADHA SCOTT MD, Ot Z95. 1 PRESENCE OF AORTOCORONARY BYPASS GRAFT 07/04/2018 RADHA SCOTT MD, Ot D64. 9 ANEMIA, UNSPECIFIED 07/04/2018 RADHA SCOTT MD, Ot E03. 9 HYPOTHYROIDISM, UNSPECIFIED 07/04/2018 RADHA SCOTT MD, Ot E10. 40 TYPE 1 DIABETES MELLITUS WITH DIABETIC N 07/04/2018 RADHA SCOTT MD, Ot E10. 51 TYPE 1 DIABETES W DIABETIC PERIPHERAL AN 07/04/2018 RADHA SCOTT MD, Ot E21. 5 DISORDER OF PARATHYROID GLAND, UNSPECIFI 07/04/2018 RADHA SCOTT MD, Ot E78. 00 PURE HYPERCHOLESTEROLEMIA, UNSPECIFIED 07/04/2018 RADHA SCOTT MD, Ot F32. 9 MAJOR DEPRESSIVE DISORDER, SINGLE EPISOD 07/04/2018 RADHA SCOTT MD, Ot F41. 9 ANXIETY DISORDER, UNSPECIFIED 07/04/2018 RADHA SCOTT MD, Ot I13. 0 HYP HRT CHR [place] DIS W HRT FAIL AND ST 07/04/2018 RADHA SCOTT MD, Ot I25. 10 ATHSCL HEART DISEASE OF [place] CORONARY 07/04/2018 RADHA SCOTT MD, Ot I25. 2 OLD MYOCARDIAL INFARCTION 07/04/2018 RADHA SCOTT MD, Ot I50. 23 ACUTE ON CHRONIC SYSTOLIC (CONGESTIVE) H 07/04/2018 RADHA SCOTT MD, Ot N18. 9 CHRONIC KIDNEY DISEASE, UNSPECIFIED 07/04/2018 RADHA SCOTT MD, Ot R07. 89 OTHER CHEST PAIN 07/04/2018 RADHA SCOTT MD, Ot Z79. 4 HAND COKE DRAWER (CURRENT) USE OF INSULIN 07/04/2018 RADHA SCOTT MD, Ot Z79. 82 HAND COKE DRAWER (CURRENT) USE OF ASPIRIN 07/04/2018 RADHA SCOTT MD, Ot Z86.718 PERSONAL HISTORY OF OTHER VENOUS THROMBO 07/04/2018 RADHA SCOTT MD, Ot Z89.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 07/04/2018 RADHA SCOTT MD, Ot Z95. 1 PRESENCE OF AORTOCORONARY BYPASS GRAFT 07/04/2018 RADHA SCOTT MD, Ot D64. 9 ANEMIA, UNSPECIFIED 07/04/2018 RADHA SCOTT MD, Ot E03. 9 HYPOTHYROIDISM, UNSPECIFIED 07/04/2018 RADHA SCOTT MD, Ot E10. 40 TYPE 1 DIABETES MELLITUS WITH DIABETIC N 07/04/2018 RADHA SCOTT MD, Ot E10. 51 TYPE 1 DIABETES W DIABETIC PERIPHERAL AN 07/04/2018 RADHA SCOTT MD, Ot E21. 5 DISORDER OF PARATHYROID GLAND, UNSPECIFI 07/04/2018 RADHA SCOTT MD, Ot E78. 00 PURE HYPERCHOLESTEROLEMIA, UNSPECIFIED 07/04/2018 RADHA SCOTT MD, Ot F32. 9 MAJOR DEPRESSIVE DISORDER, SINGLE EPISOD 07/04/2018 RADHA SCOTT MD, Ot F41. 9 ANXIETY DISORDER, UNSPECIFIED 07/04/2018 RADHA SCOTT MD, Ot I13. 0 HYP HRT CHR [place] DIS W HRT FAIL AND ST 07/04/2018 RADHA SCOTT MD, Ot I25. 10 ATHSCL HEART DISEASE OF [place] CORONARY 07/04/2018 RADHA SCOTT MD, Ot I25. 2 OLD MYOCARDIAL INFARCTION 07/04/2018 RADHA SCOTT MD, Ot I50. 23 ACUTE ON CHRONIC SYSTOLIC (CONGESTIVE) H 07/04/2018 RADHA SCOTT MD, Ot N18. 9 CHRONIC KIDNEY DISEASE, UNSPECIFIED 07/04/2018 RADHA SCOTT MD, Ot R07. 89 OTHER CHEST PAIN 07/04/2018 RADHA SCOTT MD, Ot Z79. 4 HAND COKE DRAWER (CURRENT) USE OF INSULIN 07/04/2018 RADHA SCOTT MD, Ot Z79. 82 SENIOR LIVING (CURRENT) USE OF ASPIRIN 07/04/2018 RADHA SCOTT MD, Ot Z86.718 PERSONAL HISTORY OF OTHER VENOUS THROMBO 07/04/2018 RADHA SCOTT MD, Ot Z89.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 07/04/2018 RADHA SCOTT MD, Ot Z95. 1 PRESENCE OF AORTOCORONARY BYPASS GRAFT 07/04/2018 RADHA SCOTT MD, Ot D64. 9 ANEMIA, UNSPECIFIED 07/04/2018 RADHA SCOTT MD, Ot E03. 9 HYPOTHYROIDISM, UNSPECIFIED 07/04/2018 RADHA SCOTT MD, Ot E10. 40 TYPE 1 DIABETES MELLITUS WITH DIABETIC N 07/04/2018 RADHA SCOTT MD, Ot E10. 51 TYPE 1 DIABETES W DIABETIC PERIPHERAL AN 07/04/2018 RADHA SCOTT MD, Ot E21. 5 DISORDER OF PARATHYROID GLAND, UNSPECIFI 07/04/2018 RADHA SCOTT MD, Ot E78. 00 PURE HYPERCHOLESTEROLEMIA, UNSPECIFIED 07/04/2018 RADHA SCOTT MD, Ot F32. 9 MAJOR DEPRESSIVE DISORDER, SINGLE EPISOD 07/04/2018 RADHA SCOTT MD, Ot F41. 9 ANXIETY DISORDER, UNSPECIFIED 07/04/2018 RADHA SCOTT MD, Ot I13. 0 HYP HRT CHR [place] DIS W HRT FAIL AND ST 07/04/2018 RADHA SCOTT MD, Ot I25. 10 ATHSCL HEART DISEASE OF [place] CORONARY 07/04/2018 RADHA SCOTT MD, Ot I25. 2 OLD MYOCARDIAL INFARCTION 07/04/2018 RADHA SCOTT MD, Ot I25. 5 ISCHEMIC CARDIOMYOPATHY 07/04/2018 RADHA SCOTT MD, Ot I50. 23 ACUTE ON CHRONIC SYSTOLIC (CONGESTIVE) H 07/04/2018 RADHA SCOTT MD, Ot J90 PLEURAL EFFUSION, NOT ELSEWHERE CLASSIFI 07/04/2018 RADHA SCOTT MD, Ot N18. 3 CHRONIC KIDNEY DISEASE, STAGE 3 (MODERAT 07/04/2018 RADHA SCOTT MD, Ot N18. 9 CHRONIC KIDNEY DISEASE, UNSPECIFIED 07/04/2018 RADHA SCOTT MD, Ot N31. 9 NEUROMUSCULAR DYSFUNCTION OF BLADDER, UN 07/04/2018 RADHA SCOTT MD, Ot R07. 89 OTHER CHEST PAIN 07/04/2018 RADHA SCOTT MD, Ot R33. 8 OTHER RETENTION OF URINE 07/04/2018 RADHA SCOTT MD Ot Z79. 4 HAND COKE DRAWER (CURRENT) USE OF INSULIN 07/04/2018 RADHA SCOTT MD Ot Z79. 82 SENIOR LIVING (CURRENT) USE OF ASPIRIN 07/04/2018 RADHA SCOTT MD Ot Z86.718 PERSONAL HISTORY OF OTHER VENOUS THROMBO 07/04/2018 RADHA SCOTT MD Ot Z89.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 07/04/2018 RADHA SCOTT MD Ot Z95. 1 PRESENCE OF AORTOCORONARY BYPASS GRAFT 07/09/2018 VALENTINE THOMASON MD Ot D64. 9 ANEMIA, UNSPECIFIED 07/09/2018 VALENTINE THOMASON MD Ot E03. 9 HYPOTHYROIDISM, UNSPECIFIED 07/09/2018 VALENTINE THOMASON MD Ot E11. 40 TYPE 2 DIABETES MELLITUS WITH DIABETIC N 07/09/2018 VALENTINE THOMASON MD Ot E11. 51 TYPE 2 DIABETES W DIABETIC PERIPHERAL AN 07/09/2018 VALENTINE THOMASON MD Ot E78. 00 PURE HYPERCHOLESTEROLEMIA, UNSPECIFIED 07/09/2018 VALENTINE THOMASON MD J Ot F17.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, OTHER TOBACCO PRODU 07/09/2018 VALENTINE THOMASON MD Ot F32. 9 MAJOR DEPRESSIVE DISORDER, SINGLE EPISOD 07/09/2018 VALENTINE THOMASON MD Ot F41. 9 ANXIETY DISORDER, UNSPECIFIED 07/09/2018 VALENTINE THOMASON MD Ot I10 ESSENTIAL (PRIMARY) HYPERTENSION 07/09/2018 VALENTINE THOMASON MD Ot I11. 0 HYPERTENSIVE HEART DISEASE WITH HEART FA 07/09/2018 VALENTINE THOMASON MD Ot I25. 10 ATHSCL HEART DISEASE OF [place] CORONARY 07/09/2018 VALENTINE THOMASON MD Ot I25. 2 OLD MYOCARDIAL INFARCTION 07/09/2018 VALENTINE THOMASON MD Ot I50. 9 HEART FAILURE, UNSPECIFIED 07/09/2018 VALENTINE THOMASON MD Ot I73. 9 PERIPHERAL VASCULAR DISEASE, UNSPECIFIED 07/09/2018 VALENTINE THOMASON MD Ot J18. 9 PNEUMONIA, UNSPECIFIED ORGANISM 07/09/2018 VALENTINE THOMASON MD Ot R05 COUGH 07/09/2018 VALENTINE THOMASON MD Ot R06. 02 SHORTNESS OF BREATH 07/09/2018 VALENTINE THOMASON MD Ot R07. 89 OTHER CHEST PAIN 07/09/2018 VALENTINE THOMASON MD Ot Z79. 4 SENIOR LIVING (CURRENT) USE OF INSULIN 07/09/2018 VALENTINE THOMASON MD Ot Z79. 82 HAND COKE DRAWER (CURRENT) USE OF ASPIRIN 07/09/2018 VALENTINE THOMASON MD Ot Z82. 49 FAMILY HX OF ISCHEM HEART DIS AND OTH DI 07/09/2018 VALENTINE THOMASON MD Ot Z86.718 PERSONAL HISTORY OF OTHER VENOUS THROMBO 07/09/2018 VALENTINE THOMASON MD Ot Z89.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 07/09/2018 VALENTINE THOMASON MD Ot Z95. 1 PRESENCE OF AORTOCORONARY BYPASS GRAFT 07/11/2018 VALENTINE THOMASON MD Ot D64. 9 ANEMIA, UNSPECIFIED 07/11/2018 VALENTINE THOMASON MD Ot E03. 9 HYPOTHYROIDISM, UNSPECIFIED 07/11/2018 VALENTINE THOMASON MD Ot E11. 40 TYPE 2 DIABETES MELLITUS WITH DIABETIC N 07/11/2018 VALENTINE THOMASON MD Ot E11. 51 TYPE 2 DIABETES W DIABETIC PERIPHERAL AN 07/11/2018 VALENTINE THOMASON MD Ot E78. 00 PURE HYPERCHOLESTEROLEMIA, UNSPECIFIED 07/11/2018 VALENTINE THOMASON MD Ot F17.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, OTHER TOBACCO PRODU 07/11/2018 VALENTINE THOMASON MD Ot F32. 9 MAJOR DEPRESSIVE DISORDER, SINGLE EPISOD 07/11/2018 VALENTINE THOMASON MD Ot F41. 9 ANXIETY DISORDER, UNSPECIFIED 07/11/2018 VALENTINE THOMASON MD Ot I10 ESSENTIAL (PRIMARY) HYPERTENSION 07/11/2018 VALENTINE THOMASON MD Ot I25. 10 ATHSCL HEART DISEASE OF [place] CORONARY 07/11/2018 VALENTINE THOMASON MD Ot I25. 2 OLD MYOCARDIAL INFARCTION 07/11/2018 VALENTINE THOMASON MD Ot I73. 9 PERIPHERAL VASCULAR DISEASE, UNSPECIFIED 07/11/2018 VALENTINE THOMASON MD Ot J18. 9 PNEUMONIA, UNSPECIFIED ORGANISM 07/11/2018 VALENTINE THOMASON MD Ot R05 COUGH 07/11/2018 VALENTINE THOMASON MD Ot Z79. 4 HAND COKE DRAWER (CURRENT) USE OF INSULIN 07/11/2018 VALENTINE THOMASON MD Ot Z79. 82 SENIOR LIVING (CURRENT) USE OF ASPIRIN 07/11/2018 VALENTINE THOMASON MD Ot Z82. 49 FAMILY HX OF ISCHEM HEART DIS AND OTH DI 07/11/2018 VALENTINE THOMASON MD, Ot Z86.718 PERSONAL HISTORY OF OTHER VENOUS THROMBO 07/11/2018 VALENTINE THOMASON MD Ot Z89.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 07/11/2018 VALENTINE THOMASON MD Ot Z95. 1 PRESENCE OF AORTOCORONARY BYPASS GRAFT 07/11/2018 MAHESH PAYAN MD Ot I50. 9 HEART FAILURE, UNSPECIFIED 07/11/2018 MAHESH PAYAN MD Ot R06. 02 SHORTNESS OF BREATH 07/11/2018 MAHESH PAYAN MD Ot R07. 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 07/15/2018 HARRY SAMANO MENTAL MEASUREMENTS TEACHER Ot 356.9 IDIO PERIPH NEURPTHY NOS 07/15/2018 HARRY SAMANO MENTAL MEASUREMENTS TEACHER Ot 585.3 CHRONIC KIDNEY DISEASE, STAGE III (MODER 07/15/2018 HARRY SAMANO MENTAL MEASUREMENTS TEACHER Ot V58.67 LONG-TERM (CURRENT) USE OF INSULIN 07/15/2018 HARRY SAMANO MENTAL MEASUREMENTS TEACHER Ot V58.69 OTH MED,LT,CURRENT USE 07/15/2018 JT FIGUEROA MD Ot 244.9 HYPOTHYROIDISM NOS 07/15/2018 JT FIGUEROA MD Ot 250.01 DIAB VIGNESH WO COMPL, TYPE I [JUVENILE TYP 07/15/2018 JT FIGUEROA MD Ot 272.4 HYPERLIPIDEMIA NEC/NOS 07/15/2018 GRACE CURIEL MANUFACTURING ADVISOR-C Ot 250.4 0 DIAB W RENAL MANIFEST, TYPE II OR UNSPEC 07/15/2018 GRACE CURIEL MANUFACTURING ADVISOR-C Ot 263.9 PROTEIN-NADIA MALNUTR NOS 07/15/2018 GRACE CURIEL MANUFACTURING ADVISOR-C Ot 272.4 HYPERLIPIDEMIA NEC/NOS 07/15/2018 GRACE CURIEL MANUFACTURING ADVISOR-C Ot 276.7 HYPERPOTASSEMIA 07/15/2018 NEW, GRACE CortezLatonya MANUFACTURING ADVISOR-C Ot 285.2 1 ANEMIA IN CHRONIC KIDNEY DISEASE 07/15/2018 NEW, GRACE CortezLatonya MANUFACTURING ADVISOR-C Ot 403.1 0 HYPTNSV CHR KID DIS, BENIGN, W CHR KD ST 07/15/2018 NEW, GRACE CortezLatonya MANUFACTURING ADVISOR-C Ot 585.3 CHRONIC KIDNEY DISEASE, STAGE III (MODER 07/15/2018 NEW, GRACE GLatonya MANUFACTURING ADVISOR-C Ot 588.8 1 SECONDARY HYPERPARATHYROIDISM (OF RENAL 07/15/2018 NEW, GRACE GLatonya MANUFACTURING ADVISOR-C Ot 791.0 PROTEINURIA 07/15/2018 NEW, GRACE GLatonya MANUFACTURING ADVISOR-C Ot 250.4 0 DIAB W RENAL MANIFEST, TYPE II OR UNSPEC 07/15/2018 NEW, GRACE DiegoLatonya MANUFACTURING ADVISOR-C Ot 263.9 PROTEIN-NADIA MALNUTR NOS 07/15/2018 NEW, GRACE DiegoLatonya MANUFACTURING ADVISOR-C Ot 272.4 HYPERLIPIDEMIA NEC/NOS 07/15/2018 NEW, GRACE DiegoLatonya MANUFACTURING ADVISOR-C Ot 276.3 ALKALOSIS 07/15/2018 NEW, GRACE GLatonya MANUFACTURING ADVISOR-C Ot 276.7 HYPERPOTASSEMIA 07/15/2018 NEW, GRACE GLatonya MANUFACTURING ADVISOR-C Ot 285.2 1 ANEMIA IN CHRONIC KIDNEY DISEASE 07/15/2018 NEW, GRACE CortezLatonya MANUFACTURING ADVISOR-C Ot 403.1 0 HYPTNSV CHR KID DIS, BENIGN, W CHR KD ST 07/15/2018 NEW, GRACE CortezLatonya MANUFACTURING ADVISOR-C Ot 585.3 CHRONIC KIDNEY DISEASE, STAGE III (MODER 07/15/2018 NEW, GRACE CortezLatonya MANUFACTURING ADVISOR-C Ot 588.8 1 SECONDARY HYPERPARATHYROIDISM (OF RENAL 07/15/2018 NEW, GRACE CortezLatonya MANUFACTURING ADVISOR-C Ot 791.0 PROTEINURIA 07/15/2018 Ot 250.40 DANIEL B W RENAL MANIFEST, TYPE II OR UNSPEC 07/15/2018 Ot 263.9 PROT EIN-NADIA MALNUTR NOS 07/15/2018 Ot 272.4 HYPE RLIPIDEMIA NEC/NOS 07/15/2018 Ot 276.3 PINA LOSIS 07/15/2018 Ot 276.7 HYPE RPOTASSEMIA 07/15/2018 Ot 285.21 ANE DONNA IN CHRONIC KIDNEY DISEASE 07/15/2018 Ot 403.10 HYP TNSV CHR KID DIS, BENIGN, W CHR KD ST 07/15/2018 Ot 585.3 CONTROL CLERK KATHY KIDNEY DISEASE, STAGE III (MODER 07/15/2018 Ot 588.81 SEC ONDARY HYPERPARATHYROIDISM (OF RENAL 07/15/2018 Ot 791.0 PROT EINURIA 07/15/2018 Ot 244.9 HYPO THYROIDISM NOS 07/15/2018 Ot 250.92 DANIEL B W UNSPEC COMPL, TYPE II OR UNSPEC T 07/15/2018 Ot 250.40 DANIEL B W RENAL MANIFEST, TYPE II OR UNSPEC 07/15/2018 Ot 263.9 PROT EIN-NADIA MALNUTR NOS 07/15/2018 Ot 272.4 HYPE RLIPIDEMIA NEC/NOS 07/15/2018 Ot 276.3 PINA LOSIS 07/15/2018 Ot 276.7 HYPE RPOTASSEMIA 07/15/2018 Ot 285.21 ANE DONNA IN CHRONIC KIDNEY DISEASE 07/15/2018 Ot 403.10 HYP TNSV CHR KID DIS, BENIGN, W CHR KD ST 07/15/2018 Ot 585.3 CONTROL CLERK KATHY KIDNEY DISEASE, STAGE III (MODER 07/15/2018 Ot 588.81 SEC ONDARY HYPERPARATHYROIDISM (OF RENAL 07/15/2018 Ot 791.0 PROT EINURIA 07/15/2018 JT FIGUEROA MD Ot 244.8 ACQUIRED HYPOTHYROID NEC 07/15/2018 JT FIGUEROA MD Ot 246.8 DISORDERS OF THYROID NEC 07/15/2018 JT FIGUEROA MD Ot 250.93 DIAB W UNSPEC COMPL, TYPE I [JUVENILE TY 07/15/2018 LIZY WHITNEY Ot 250.00 DIAB VIGNESH WO COMPL, TYPE II OR UNSPEC TY 07/15/2018 LIZY WHITNEY Ot 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 07/15/2018 LIZY WHITNEY Ot 356.9 IDIO PERIPH NEURPTHY NOS 07/15/2018 LIZY WHITNEY Ot 585.3 CHRONIC KIDNEY DISEASE, STAGE III (MODER 07/15/2018 LIZY WHITNEY Ot V58.67 LONG-TERM (CURRENT) USE OF INSULIN 07/15/2018 LIZY WHITNEY Ot V58.69 OTH MED,LT,CURRENT USE 07/15/2018 HARRY SAMANO MENTAL MEASUREMENTS TEACHER Ot D47.2 MONOCLONAL GAMMOPATHY 07/15/2018 HARRY SAMANO MENTAL MEASUREMENTS TEACHER Ot E11.9 TYPE 2 DIABETES MELLITUS WITHOUT COMPLIC 07/15/2018 HARRY SAMANO MENTAL MEASUREMENTS TEACHER Ot G60.9 HEREDITARY AND IDIOPATHIC NEUROPATHY, UN 07/15/2018 HARRY SAMANO MENTAL MEASUREMENTS TEACHER Ot N18.3 CHRONIC KIDNEY DISEASE, STAGE 3 (MODERAT 07/15/2018 HARRY SAMANO MENTAL MEASUREMENTS TEACHER Ot Z79.4 HAND COKE DRAWER (CURRENT) USE OF INSULIN 07/15/2018 HARRY SAMANO MENTAL MEASUREMENTS TEACHER Ot Z79.899 OTHER SENIOR LIVING (CURRENT) DRUG THERAPY 07/15/2018 NEW, GRACE G. MANUFACTURING ADVISOR-C Ot D63.1 ANEMIA IN CHRONIC KIDNEY DISEASE 07/15/2018 NEW, GRACE G. MANUFACTURING ADVISOR-C Ot E11.2 9 TYPE 2 DIABETES MELLITUS W [facility] DIABETIC 07/15/2018 NEW, GRACE G. MANUFACTURING ADVISOR-C Ot E46 UNSPECIFIED PROTEIN-[place] MALNUTRITION 07/15/2018 NEW, GRACE G. MANUFACTURING ADVISOR-C Ot E87.5 HYPERKALEMIA 07/15/2018 NEW, GRACE G. MANUFACTURING ADVISOR-C Ot I12.9 HYPERTENSIVE CHRONIC KIDNEY DISEASE W ST 07/15/2018 NEW, GRACE G. MANUFACTURING ADVISOR-C Ot N18.3 CHRONIC KIDNEY DISEASE, STAGE 3 (MODERAT 07/15/2018 NEW, GRACE G. MANUFACTURING ADVISOR-C Ot N25.8 1 SECONDARY HYPERPARATHYROIDISM OF RENAL O 07/15/2018 NEW, GRACE G. MANUFACTURING ADVISOR-C Ot R80.9 PROTEINURIA, UNSPECIFIED 07/15/2018 CAROLINA PAYAN, JT Negrete Ot E03.8 OTHER SPECIFIED HYPOTHYROIDISM 07/15/2018 NEW, GRACE G. MANUFACTURING ADVISOR-C Ot D47.2 MONOCLONAL GAMMOPATHY 07/15/2018 NEW, GRACE G. MANUFACTURING ADVISOR-C Ot D61.8 18 OTHER PANCYTOPENIA 07/15/2018 NEW, GRACE G. MANUFACTURING ADVISOR-C Ot D63.1 ANEMIA IN CHRONIC KIDNEY DISEASE 07/15/2018 NEW, GRACE G. MANUFACTURING ADVISOR-C Ot E11.2 9 TYPE 2 DIABETES MELLITUS W [facility] DIABETIC 07/15/2018 NEW, GRACE G. MANUFACTURING ADVISOR-C Ot E44.1 MILD PROTEIN-[place] MALNUTRITION 07/15/2018 NEW, GRACE G. MANUFACTURING ADVISOR-C Ot E78.5 HYPERLIPIDEMIA, UNSPECIFIED 07/15/2018 NEW, GRACE G. MANUFACTURING ADVISOR-C Ot E87.3 ALKALOSIS 07/15/2018 NEW, GRACE Diego. MANUFACTURING ADVISOR-C Ot E87.5 HYPERKALEMIA 07/15/2018 NEW, GRACE G. MANUFACTURING ADVISOR-C Ot I12.9 HYPERTENSIVE CHRONIC KIDNEY DISEASE W ST 07/15/2018 NEW, GRACE G. MANUFACTURING ADVISOR-C Ot N18.3 CHRONIC KIDNEY DISEASE, STAGE 3 (MODERAT 07/15/2018 NEW, GRACE G. MANUFACTURING ADVISOR-C Ot N25.8 1 SECONDARY HYPERPARATHYROIDISM OF RENAL O 07/15/2018 NEW, GRACE G. MANUFACTURING ADVISOR-C Ot R80.9 PROTEINURIA, UNSPECIFIED 07/15/2018 NEW, GRACE G. MANUFACTURING ADVISOR-C Ot D47.2 MONOCLONAL GAMMOPATHY 07/15/2018 NEW, GRACE G. MANUFACTURING ADVISOR-C Ot D61.8 18 OTHER PANCYTOPENIA 07/15/2018 NEW, GRACE G. MANUFACTURING ADVISOR-C Ot D63.1 ANEMIA IN CHRONIC KIDNEY DISEASE 07/15/2018 NEW, GRACE G. MANUFACTURING ADVISOR-C Ot E11.2 2 TYPE 2 DIABETES MELLITUS W DIABETIC CONTROL CLERK 07/15/2018 NEW, GRACE G. MANUFACTURING ADVISOR-C Ot E44.1 MILD PROTEIN-[place] MALNUTRITION 07/15/2018 NEW, GRACE G. MANUFACTURING ADVISOR-C Ot E78.5 HYPERLIPIDEMIA, UNSPECIFIED 07/15/2018 NEW, GRACE G. MANUFACTURING ADVISOR-C Ot E87.3 ALKALOSIS 07/15/2018 NEW, GRACE G. MANUFACTURING ADVISOR-C Ot E87.5 HYPERKALEMIA 07/15/2018 NEW, GRACE Diego. MANUFACTURING ADVISOR-C Ot I12.9 HYPERTENSIVE CHRONIC KIDNEY DISEASE W ST 07/15/2018 NEW, GRACE G. MANUFACTURING ADVISOR-C Ot N18.3 CHRONIC KIDNEY DISEASE, STAGE 3 (MODERAT 07/15/2018 NEW, GRACE G. MANUFACTURING ADVISOR-C Ot N25.8 1 SECONDARY HYPERPARATHYROIDISM OF RENAL O 07/15/2018 NEW, GRACE G. MANUFACTURING ADVISOR-C Ot R80.9 PROTEINURIA, UNSPECIFIED 07/15/2018 RAINER MCGOVERN DO Ot S82.851A DISPLACED TRIMALLEOLAR FRACTURE OF RIGHT 07/15/2018 RAINER MCGOVERN DO Ot X58.XXXA EXPOSURE TO OTHER SPECIFIED FACTORS, INI 07/15/2018 RAINER MCGOVERN DO Ot Y99.8 OTHER EXTERNAL CAUSE STATUS 07/15/2018 RAINER MCGOVERN DO Ot Z79.01 HAND COKE DRAWER (CURRENT) USE OF ANTICOAGULANT 07/15/2018 LIZY WHITNEY Peña Ot M84.363 A STRESS FRACTURE, RIGHT FIBULA, INIT ENCN 07/15/2018 LIZY WHITNEY Peña Ot M84.371 A STRESS FRACTURE, RIGHT ANKLE, INITIAL EN 07/15/2018 LIZY WHITNEY Peña Ot M85.88 OT DISRD OF BONE DENSITY AND STRUCTURE, 07/15/2018 JT FIGUEROA MD Ot E03.4 ATROPHY OF THYROID (ACQUIRED) 07/15/2018 JT FIGUEROA MD Ot E10.8 TYPE 1 DIABETES MELLITUS WITH UNSPECIFIE 07/15/2018 NEW, GRACE G. MANUFACTURING ADVISOR-C Ot D47.2 MONOCLONAL GAMMOPATHY 07/15/2018 NEW, GRACE G. MANUFACTURING ADVISOR-C Ot D61.8 18 OTHER PANCYTOPENIA 07/15/2018 NEW, GRACE G. MANUFACTURING ADVISOR-C Ot D63.1 ANEMIA IN CHRONIC KIDNEY DISEASE 07/15/2018 NEW, GRACE G. MANUFACTURING ADVISOR-C Ot E11.2 9 TYPE 2 DIABETES MELLITUS W OTH DIABETIC 07/15/2018 NEW, GRACE G. MANUFACTURING ADVISOR-C Ot E44.1 MILD PROTEIN-[place] MALNUTRITION 07/15/2018 NEW, GRACE G. MANUFACTURING ADVISOR-C Ot E78.5 HYPERLIPIDEMIA, UNSPECIFIED 07/15/2018 NEW, GRACE G. MANUFACTURING ADVISOR-C Ot E87.3 ALKALOSIS 07/15/2018 NEW, GRACE G. MANUFACTURING ADVISOR-C Ot E87.5 HYPERKALEMIA 07/15/2018 NEW, GRACE G. MANUFACTURING ADVISOR-C Ot I12.9 HYPERTENSIVE CHRONIC KIDNEY DISEASE W ST 07/15/2018 NEW, GRACE G. MANUFACTURING ADVISOR-C Ot N18.3 CHRONIC KIDNEY DISEASE, STAGE 3 (MODERAT 07/15/2018 NEW, GRACE G. MANUFACTURING ADVISOR-C Ot N25.8 1 SECONDARY HYPERPARATHYROIDISM OF RENAL O 07/15/2018 NEW, GRACE G. MANUFACTURING ADVISOR-C Ot R80.9 PROTEINURIA, UNSPECIFIED 07/15/2018 JT FIGUEROA MD Ot E03.4 ATROPHY OF THYROID (ACQUIRED) 07/15/2018 JT FIGUEROA MD Ot E10.8 TYPE 1 DIABETES MELLITUS WITH UNSPECIFIE 07/15/2018 NEW, GRACE G. MANUFACTURING ADVISOR-C Ot D47.2 MONOCLONAL GAMMOPATHY 07/15/2018 NEW, GRACE G. MANUFACTURING ADVISOR-C Ot D61.8 18 OTHER PANCYTOPENIA 07/15/2018 NEW, GRACE G. MANUFACTURING ADVISOR-C Ot D63.1 ANEMIA IN CHRONIC KIDNEY DISEASE 07/15/2018 NEW, GRACE G. MANUFACTURING ADVISOR-C Ot E03.4 ATROPHY OF THYROID (ACQUIRED) 07/15/2018 NEW, GRACE G. MANUFACTURING ADVISOR-C Ot E11.2 2 TYPE 2 DIABETES MELLITUS W DIABETIC CONTROL CLERK 07/15/2018 NEW, GRACE G. MANUFACTURING ADVISOR-C Ot E44.1 MILD PROTEIN-[place] MALNUTRITION 07/15/2018 NEW, GRACE G. MANUFACTURING ADVISOR-C Ot E78.5 HYPERLIPIDEMIA, UNSPECIFIED 07/15/2018 NEW, GRACE G. MANUFACTURING ADVISOR-C Ot E87.3 ALKALOSIS 07/15/2018 NEW, GRACE G. MANUFACTURING ADVISOR-C Ot E87.5 HYPERKALEMIA 07/15/2018 NEW, GRACE G. MANUFACTURING ADVISOR-C Ot I12.9 HYPERTENSIVE CHRONIC KIDNEY DISEASE W ST 07/15/2018 NEW, GRACE G. MANUFACTURING ADVISOR-C Ot N18.3 CHRONIC KIDNEY DISEASE, STAGE 3 (MODERAT 07/15/2018 NEW, GRACE G. MANUFACTURING ADVISOR-C Ot N25.8 1 SECONDARY HYPERPARATHYROIDISM OF RENAL O 07/15/2018 NEW, GRACE G. MANUFACTURING ADVISOR-C Ot R80.9 PROTEINURIA, UNSPECIFIED 07/15/2018 DUYEN PAYAN, SKYLAR R Ot E78. 2 MIXED HYPERLIPIDEMIA 07/15/2018 LIZY WHITNEY N Ot D47.2 MONOCLONAL GAMMOPATHY 07/15/2018 LIZY WHITNEY N Ot D63.8 ANEMIA IN OTHER CHRONIC DISEASES CLASSIF 07/15/2018 LIZY WHITNEY N Ot E03.9 HYPOTHYROIDISM, UNSPECIFIED 07/15/2018 DEVONTE BOBREGINA N Ot E11.22 TYPE 2 DIABETES MELLITUS W DIABETIC CONTROL CLERK 07/15/2018 LIZY WHITNEY N Ot E78.00 PURE HYPERCHOLESTEROLEMIA, UNSPECIFIED 07/15/2018 DEVONTE BOBREGINA N Ot G60.9 HEREDITARY AND IDIOPATHIC NEUROPATHY, UN 07/15/2018 DEVONTE BOBREGINA N Ot I25.10 ATHSCL HEART DISEASE OF [place] CORONARY 07/15/2018 LIYZ WHITNEY N Ot I25.2 OLD MYOCARDIAL INFARCTION 07/15/2018 LIZY WHITNEY Ot M85.80 OTH DISRD OF BONE DENSITY AND STRUCTURE, 07/15/2018 LIZY WHITNEY Ot N18.3 CHRONIC KIDNEY DISEASE, STAGE 3 (MODERAT 07/15/2018 LIZY WHITNEY Ot Z79.4 SENIOR LIVING (CURRENT) USE OF INSULIN 07/15/2018 LIZY WHITNEY Ot Z79.899 OTHER SENIOR LIVING (CURRENT) DRUG THERAPY 07/15/2018 LIZY WHITNEY Ot Z89.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 07/15/2018 MAHESH PAYAN MD Ot I50. 9 HEART FAILURE, UNSPECIFIED 07/15/2018 MAHESH PAYAN MD Ot R06. 02 SHORTNESS OF BREATH 07/15/2018 MAHESH PAYAN MD Ot R07. 89 OTHER CHEST PAIN 07/24/2018 VALENTINE THOMASON MD Ot D64. 9 ANEMIA, UNSPECIFIED 07/24/2018 VALENTINE THOMASON MD Ot E03. 9 HYPOTHYROIDISM, UNSPECIFIED 07/24/2018 VALENTINE THOMASON MD Ot E11. 40 TYPE 2 DIABETES MELLITUS WITH DIABETIC N 07/24/2018 VALENTINE THOMASON MD Ot E11. 51 TYPE 2 DIABETES W DIABETIC PERIPHERAL AN 07/24/2018 VALENTINE THOMASON MD Ot E78. 00 PURE HYPERCHOLESTEROLEMIA, UNSPECIFIED 07/24/2018 VALENTINE THOMASON MD Ot F17.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, OTHER TOBACCO PRODU 07/24/2018 VALENTINE THOMASON MD Ot F32. 9 MAJOR DEPRESSIVE DISORDER, SINGLE EPISOD 07/24/2018 VALENTINE THOMASON MD Ot F41. 9 ANXIETY DISORDER, UNSPECIFIED 07/24/2018 VALENTINE THOMASON MD Ot I11. 0 HYPERTENSIVE HEART DISEASE WITH HEART FA 07/24/2018 VALENTINE THOMASON MD Ot I25. 10 ATHSCL HEART DISEASE OF [place] CORONARY 07/24/2018 VALENTINE THOMASON MD Ot I25. 2 OLD MYOCARDIAL INFARCTION 07/24/2018 VALENTINE THOMASON MD Ot I50. 9 HEART FAILURE, UNSPECIFIED 07/24/2018 VALENTINE THOMASON MD Ot I73. 9 PERIPHERAL VASCULAR DISEASE, UNSPECIFIED 07/24/2018 VALENTINE THOMASON MD Ot J18. 9 PNEUMONIA, UNSPECIFIED ORGANISM 07/24/2018 VALENTINE THOMASON MD Ot R05 COUGH 07/24/2018 VALENTINE THOMASON MD Ot R06. 02 SHORTNESS OF BREATH 07/24/2018 VALENTINE THOMASON MD Ot R07. 89 OTHER CHEST PAIN 07/24/2018 VALENTINE THOMASON MD Ot Z79. 4 [facility]IVING (CURRENT) USE OF INSULIN 07/24/2018 VALENTINE THOMAOSN MD Ot Z79. 82 [facility]EN[facility]IVING (CURRENT) USE OF ASPIRIN 07/24/2018 VALENTINE THOMASON MD Ot Z82. 49 FAMILY HX OF ISCHEM HEART DIS AND OTH DI 07/24/2018 VALENTINE THOMASON MD Ot Z86.718 PERSONAL HISTORY OF OTHER VENOUS THROMBO 07/24/2018 VALENTINE THOMASON MD Ot Z89.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 07/24/2018 VALENTINE THOMASON MD Ot Z95. 1 PRESENCE OF AORTOCORONARY BYPASS GRAFT 07/31/2018 MAHESH PAYAN MD Ot I50. 9 HEART FAILURE, UNSPECIFIED 07/31/2018 MAHESH PAYAN MD Ot R06. 02 SHORTNESS OF BREATH 07/31/2018 MAHESH PAYNA MD Ot R07. 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 08/02/2018 HARRY SAMANO MENTAL MEASUREMENTS TEACHER Ot 356.9 IDIO PERIPH NEURPTHY NOS 08/02/2018 HARRY SAMANO MENTAL MEASUREMENTS TEACHER Ot 585.3 CHRONIC KIDNEY DISEASE, STAGE III (MODER 08/02/2018 HARRY SAMANO MENTAL MEASUREMENTS TEACHER Ot V58.67 LONG-TERM (CURRENT) USE OF INSULIN 08/02/2018 HARRY SAMANO MENTAL MEASUREMENTS TEACHER Ot V58.69 OTH MED,LT,CURRENT USE 08/02/2018 JT FIGUEROA MD Ot 244.9 HYPOTHYROIDISM NOS 08/02/2018 JT FIGUEROA MD Ot 250.01 DIAB VIGNESH WO COMPL, TYPE I [JUVENILE TYP 08/02/2018 JT FIGUEROA MD Ot 272.4 HYPERLIPIDEMIA NEC/NOS 08/02/2018 GRACE CURIEL NP-C Ot 250.4 0 DIAB W RENAL MANIFEST, TYPE II OR UNSPEC 08/02/2018 GRACE CURIEL. MANUFACTURING ADVISOR-C Ot 263.9 PROTEIN-NADIA MALNUTR NOS 08/02/2018 NEW, GRACE G. MANUFACTURING ADVISOR-C Ot 272.4 HYPERLIPIDEMIA NEC/NOS 08/02/2018 NEW, GRACE G. MANUFACTURING ADVISOR-C Ot 276.7 HYPERPOTASSEMIA 08/02/2018 NEW, GRACE G. MANUFACTURING ADVISOR-C Ot 285.2 1 ANEMIA IN CHRONIC KIDNEY DISEASE 08/02/2018 NEW, GRACE G. MANUFACTURING ADVISOR-C Ot 403.1 0 HYPTNSV CHR KID DIS, BENIGN, W CHR KD ST 08/02/2018 NEW, GRACE G. MANUFACTURING ADVISOR-C Ot 585.3 CHRONIC KIDNEY DISEASE, STAGE III (MODER 08/02/2018 NEW, GRACE G. MANUFACTURING ADVISOR-C Ot 588.8 1 SECONDARY HYPERPARATHYROIDISM (OF RENAL 08/02/2018 NEW, GRACE G. MANUFACTURING ADVISOR-C Ot 791.0 PROTEINURIA 08/02/2018 NEW, GRACE G. MANUFACTURING ADVISOR-C Ot 250.4 0 DIAB W RENAL MANIFEST, TYPE II OR UNSPEC 08/02/2018 NEW, GRACE G. MANUFACTURING ADVISOR-C Ot 263.9 PROTEIN-NADIA MALNUTR NOS 08/02/2018 NEW, GRACE G. MANUFACTURING ADVISOR-C Ot 272.4 HYPERLIPIDEMIA NEC/NOS 08/02/2018 NEW, GRACE G. MANUFACTURING ADVISOR-C Ot 276.3 ALKALOSIS 08/02/2018 NEW, GRACE G. MANUFACTURING ADVISOR-C Ot 276.7 HYPERPOTASSEMIA 08/02/2018 NEW, GRACE G. MANUFACTURING ADVISOR-C Ot 285.2 1 ANEMIA IN CHRONIC KIDNEY DISEASE 08/02/2018 NEW, GRACE Diego. MANUFACTURING ADVISOR-C Ot 403.1 0 HYPTNSV CHR KID DIS, BENIGN, W CHR KD ST 08/02/2018 NEW, GRACE G. MANUFACTURING ADVISOR-C Ot 585.3 CHRONIC KIDNEY DISEASE, STAGE III (MODER 08/02/2018 NEW, GRACE G. MANUFACTURING ADVISOR-C Ot 588.8 1 SECONDARY HYPERPARATHYROIDISM (OF RENAL 08/02/2018 NEW, GRACE G. MANUFACTURING ADVISOR-C Ot 791.0 PROTEINURIA 08/02/2018 Ot 250.40 DANIEL B W RENAL MANIFEST, TYPE II OR UNSPEC 08/02/2018 Ot 263.9 PROT EIN-NADIA MALNUTR NOS 08/02/2018 Ot 272.4 HYPE RLIPIDEMIA NEC/NOS 08/02/2018 Ot 276.3 PINA LOSIS 08/02/2018 Ot 276.7 HYPE RPOTASSEMIA 08/02/2018 Ot 285.21 ANE DONNA IN CHRONIC KIDNEY DISEASE 08/02/2018 Ot 403.10 HYP TNSV CHR KID DIS, BENIGN, W CHR KD ST 08/02/2018 Ot 585.3 CONTROL CLERK KATHY KIDNEY DISEASE, STAGE III (MODER 08/02/2018 Ot 588.81 SEC ONDARY HYPERPARATHYROIDISM (OF RENAL 08/02/2018 Ot 791.0 PROT EINURIA 08/02/2018 Ot 244.9 HYPO THYROIDISM NOS 08/02/2018 Ot 250.92 DANIEL B W UNSPEC COMPL, TYPE II OR UNSPEC T 08/02/2018 Ot 250.40 DANIEL B W RENAL MANIFEST, TYPE II OR UNSPEC 08/02/2018 Ot 263.9 PROT EIN-NADIA MALNUTR NOS 08/02/2018 Ot 272.4 HYPE RLIPIDEMIA NEC/NOS 08/02/2018 Ot 276.3 PINA LOSIS 08/02/2018 Ot 276.7 HYPE RPOTASSEMIA 08/02/2018 Ot 285.21 ANE DONNA IN CHRONIC KIDNEY DISEASE 08/02/2018 Ot 403.10 HYP TNSV CHR KID DIS, BENIGN, W CHR KD ST 08/02/2018 Ot 585.3 CONTROL CLERK KATHY KIDNEY DISEASE, STAGE III (MODER 08/02/2018 Ot 588.81 SEC ONDARY HYPERPARATHYROIDISM (OF RENAL 08/02/2018 Ot 791.0 PROT EINURIA 08/02/2018 JT FIGUEROA MD Ot 244.8 ACQUIRED HYPOTHYROID NEC 08/02/2018 JT FIGUEROA MD Ot 246.8 DISORDERS OF THYROID NEC 08/02/2018 JT FIGUEROA MD Ot 250.93 DIAB W UNSPEC COMPL, TYPE I [JUVENILE TY 08/02/2018 LIZY WHITNEY Ot 250.00 DIAB VIGNESH WO COMPL, TYPE II OR UNSPEC TY 08/02/2018 LIZY WHITNEY Ot 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 08/02/2018 LIZY WHITNEY Ot 356.9 IDIO PERIPH NEURPTHY NOS 08/02/2018 LIZY WHITNEY Ot 585.3 CHRONIC KIDNEY DISEASE, STAGE III (MODER 08/02/2018 LIZY WHITNEY Ot V58.67 LONG-TERM (CURRENT) USE OF INSULIN 08/02/2018 LIZY WHITNEY Ot V58.69 [facility] MED,LT,CURRENT USE 08/02/2018 HARRY SAMANO Ot D47.2 MONOCLONAL GAMMOPATHY 08/02/2018 HARRY SAMANO MENTAL MEASUREMENTS TEACHER Ot E11.9 TYPE 2 DIABETES MELLITUS WITHOUT COMPLIC 08/02/2018 HARRY SAMANO MENTAL MEASUREMENTS TEACHER Ot G60.9 HEREDITARY AND IDIOPATHIC NEUROPATHY, UN 08/02/2018 HARRY SAMANO MENTAL MEASUREMENTS TEACHER Ot N18.3 CHRONIC KIDNEY DISEASE, STAGE 3 (MODERAT 08/02/2018 HARRY SAMANO MENTAL MEASUREMENTS TEACHER Ot Z79.4 SENIOR [facility]IVING (CURRENT) USE OF INSULIN 08/02/2018 HARRY SAMANO MENTAL MEASUREMENTS TEACHER Ot Z79.899 OTHER SENIOR LIVING (CURRENT) DRUG THERAPY 08/02/2018 MOISÉS GRACE G. MANUFACTURING ADVISOR-C Ot D63.1 ANEMIA IN CHRONIC KIDNEY DISEASE 08/02/2018 NEW GRACE G. MANUFACTURING ADVISOR-C Ot E11.2 9 TYPE 2 DIABETES MELLITUS W [facility] DIABETIC 08/02/2018 MOISÉS GRACE GLatonya MANUFACTURING ADVISOR-C Ot E46 UNSPECIFIED PROTEIN-CALORIE MALNUTRITION 08/02/2018 NEW GRACE G. MANUFACTURING ADVISOR-C Ot E87.5 HYPERKALEMIA 08/02/2018 NEW GRACE GLatonya MANUFACTURING ADVISOR-C Ot I12.9 HYPERTENSIVE CHRONIC KIDNEY DISEASE W ST 08/02/2018 NEW GRACE G. MANUFACTURING ADVISOR-C Ot N18.3 CHRONIC KIDNEY DISEASE, STAGE 3 (MODERAT 08/02/2018 NEW GRACE GLatonya MANUFACTURING ADVISOR-C Ot N25.8 1 SECONDARY HYPERPARATHYROIDISM OF RENAL O 08/02/2018 MOISÉS GRACE GLatonya MANUFACTURING ADVISOR-C Ot R80.9 PROTEINURIA, UNSPECIFIED 08/02/2018 JT FIGUEROA MD Ot E03.8 OTHER SPECIFIED HYPOTHYROIDISM 08/02/2018 NEW GRACE G. MANUFACTURING ADVISOR-C Ot D47.2 MONOCLONAL GAMMOPATHY 08/02/2018 NEW GRACE G. MANUFACTURING ADVISOR-C Ot D61.8 18 OTHER PANCYTOPENIA 08/02/2018 NEW GRACE G. MANUFACTURING ADVISOR-C Ot D63.1 ANEMIA IN CHRONIC KIDNEY DISEASE 08/02/2018 NEW GRACE GLatonya MANUFACTURING ADVISOR-C Ot E11.2 9 TYPE 2 DIABETES MELLITUS W [facility] DIABETIC 08/02/2018 MOISÉS GRACE G. MANUFACTURING ADVISOR-C Ot E44.1 MILD PROTEIN-CALORIE MALNUTRITION 08/02/2018 NEW, GRACE Diego. MANUFACTURING ADVISOR-C Ot E78.5 HYPERLIPIDEMIA, UNSPECIFIED 08/02/2018 NEW, GRACE G. MANUFACTURING ADVISOR-C Ot E87.3 ALKALOSIS 08/02/2018 NEW, GRACE G. MANUFACTURING ADVISOR-C Ot E87.5 HYPERKALEMIA 08/02/2018 NEW, GRACE G. MANUFACTURING ADVISOR-C Ot I12.9 HYPERTENSIVE CHRONIC KIDNEY DISEASE W ST 08/02/2018 NEW, GRACE G. MANUFACTURING ADVISOR-C Ot N18.3 CHRONIC KIDNEY DISEASE, STAGE 3 (MODERAT 08/02/2018 NEW, GRACE G. MANUFACTURING ADVISOR-C Ot N25.8 1 SECONDARY HYPERPARATHYROIDISM OF RENAL O 08/02/2018 NEW, GRACE G. MANUFACTURING ADVISOR-C Ot R80.9 PROTEINURIA, UNSPECIFIED 08/02/2018 NEW, GRACE G. MANUFACTURING ADVISOR-C Ot D47.2 MONOCLONAL GAMMOPATHY 08/02/2018 NEW, GRACE G. MANUFACTURING ADVISOR-C Ot D61.8 18 OTHER PANCYTOPENIA 08/02/2018 NEW, GRACE G. MANUFACTURING ADVISOR-C Ot D63.1 ANEMIA IN CHRONIC KIDNEY DISEASE 08/02/2018 NEW, GRACE G. MANUFACTURING ADVISOR-C Ot E11.2 2 TYPE 2 DIABETES MELLITUS W DIABETIC CONTROL CLERK 08/02/2018 NEW, GRACE G. MANUFACTURING ADVISOR-C Ot E44.1 MILD PROTEIN-[place]ORIE MALNUTRITION 08/02/2018 NEW, GRACE G. MANUFACTURING ADVISOR-C Ot E78.5 HYPERLIPIDEMIA, UNSPECIFIED 08/02/2018 NEW, GRACE G. MANUFACTURING ADVISOR-C Ot E87.3 ALKALOSIS 08/02/2018 NEW, GRACE Diego. MANUFACTURING ADVISOR-C Ot E87.5 HYPERKALEMIA 08/02/2018 NEW, GRACE G. MANUFACTURING ADVISOR-C Ot I12.9 HYPERTENSIVE CHRONIC KIDNEY DISEASE W ST 08/02/2018 NEW, GRACE G. MANUFACTURING ADVISOR-C Ot N18.3 CHRONIC KIDNEY DISEASE, STAGE 3 (MODERAT 08/02/2018 NEW, GRACE G. MANUFACTURING ADVISOR-C Ot N25.8 1 SECONDARY HYPERPARATHYROIDISM OF RENAL O 08/02/2018 NEW, GRACE G. MANUFACTURING ADVISOR-C Ot R80.9 PROTEINURIA, UNSPECIFIED 08/02/2018 FROILAN DO RAINER F Ot S82.851A DISPLACED TRIMALLEOLAR FRACTURE OF RIGHT 08/02/2018 FROILANRAINER PINA DO Ot X58.XXXA EXPOSURE TO OTHER SPECIFIED FACTORS, INI 08/02/2018 RAINER MCGOVERN DO Ot Y99.8 OTHER EXTERNAL CAUSE STATUS 08/02/2018 RAINER MCGOVERN DO Ot Z79.01 HAND COKE DRAWER (CURRENT) USE OF ANTICOAGULANT 08/02/2018 LIZY WHITNEY Peña Ot M84.363 A STRESS FRACTURE, RIGHT FIBULA, INIT ENCN 08/02/2018 LIZY WHITNEY Peña Ot M84.371 A STRESS FRACTURE, RIGHT ANKLE, INITIAL EN 08/02/2018 LIZY WHITNEY Ot M85.88 [facility] DISRD OF BONE DENSITY AND STRUCTURE, 08/02/2018 JT FIGUEROA MD, Ot E03.4 ATROPHY OF THYROID (ACQUIRED) 08/02/2018 JT FIGUEROA MD, Ot E10.8 TYPE 1 DIABETES MELLITUS WITH UNSPECIFIE 08/02/2018 NEWGRACE MANUFACTURING ADVISOR-C Ot D47.2 MONOCLONAL GAMMOPATHY 08/02/2018 NEWGRACE MANUFACTURING ADVISOR-C Ot D61.8 18 OTHER PANCYTOPENIA 08/02/2018 NEW GRACE GLatonya MANUFACTURING ADVISOR-C Ot D63.1 ANEMIA IN CHRONIC KIDNEY DISEASE 08/02/2018 NEW GRACE GLatonya MANUFACTURING ADVISOR-C Ot E11.2 9 TYPE 2 DIABETES MELLITUS W [facility] DIABETIC 08/02/2018 NEW GRACE GLatonya MANUFACTURING ADVISOR-C Ot E44.1 MILD PROTEIN-CALORIE MALNUTRITION 08/02/2018 NEWANIA G. MANUFACTURING ADVISOR-C Ot E78.5 HYPERLIPIDEMIA, UNSPECIFIED 08/02/2018 NEWRGACE GLatonya MANUFACTURING ADVISOR-C Ot E87.3 ALKALOSIS 08/02/2018 NEW GRACE GLatonya MANUFACTURING ADVISOR-C Ot E87.5 HYPERKALEMIA 08/02/2018 NEW GRACE GLatonya MANUFACTURING ADVISOR-C Ot I12.9 HYPERTENSIVE CHRONIC KIDNEY DISEASE W ST 08/02/2018 NEWGRACE GLatonya MANUFACTURING ADVISOR-C Ot N18.3 CHRONIC KIDNEY DISEASE, STAGE 3 (MODERAT 08/02/2018 NEW GRACE GLatonya MANUFACTURING ADVISOR-C Ot N25.8 1 SECONDARY HYPERPARATHYROIDISM OF RENAL O 08/02/2018 NEWGRACE GLatonya MANUFACTURING ADVISOR-C Ot R80.9 PROTEINURIA, UNSPECIFIED 08/02/2018 JT FIGUEROA MD Ot E03.4 ATROPHY OF THYROID (ACQUIRED) 08/02/2018 CAROLINA PAYAN, JT Negrete Ot E10.8 TYPE 1 DIABETES MELLITUS WITH UNSPECIFIE 08/02/2018 NEW, GRACE Diego. MANUFACTURING ADVISOR-C Ot D47.2 MONOCLONAL GAMMOPATHY 08/02/2018 NEW, GRACE G. MANUFACTURING ADVISOR-C Ot D61.8 18 OTHER PANCYTOPENIA 08/02/2018 NEW, GRACE G. MANUFACTURING ADVISOR-C Ot D63.1 ANEMIA IN CHRONIC KIDNEY DISEASE 08/02/2018 NEW, GRACE G. MANUFACTURING ADVISOR-C Ot E03.4 ATROPHY OF THYROID (ACQUIRED) 08/02/2018 NEW, GRACE G. MANUFACTURING ADVISOR-C Ot E11.2 2 TYPE 2 DIABETES MELLITUS W DIABETIC CONTROL CLERK 08/02/2018 NEW, GRACE G. MANUFACTURING ADVISOR-C Ot E44.1 MILD PROTEIN-CALORIE MALNUTRITION 08/02/2018 NEW, GRACE G. MANUFACTURING ADVISOR-C Ot E78.5 HYPERLIPIDEMIA, UNSPECIFIED 08/02/2018 NEW, GRACE G. MANUFACTURING ADVISOR-C Ot E87.3 ALKALOSIS 08/02/2018 NEW, GRACE G. MANUFACTURING ADVISOR-C Ot E87.5 HYPERKALEMIA 08/02/2018 NEW, GRACE G. MANUFACTURING ADVISOR-C Ot I12.9 HYPERTENSIVE CHRONIC KIDNEY DISEASE W ST 08/02/2018 NEW, GRACE G. MANUFACTURING ADVISOR-C Ot N18.3 CHRONIC KIDNEY DISEASE, STAGE 3 (MODERAT 08/02/2018 NEW, GRACE G. MANUFACTURING ADVISOR-C Ot N25.8 1 SECONDARY HYPERPARATHYROIDISM OF RENAL O 08/02/2018 NEW, GRACE G. MANUFACTURING ADVISOR-C Ot R80.9 PROTEINURIA, UNSPECIFIED 08/02/2018 DUYEN PAYAN, SKYLAR R Ot E78. 2 MIXED HYPERLIPIDEMIA 08/02/2018 DEVONTE, BOBAN N Ot D47.2 MONOCLONAL GAMMOPATHY 08/02/2018 DEVONTE, BOBAN N Ot D63.8 ANEMIA IN OTHER CHRONIC DISEASES CLASSIF 08/02/2018 DEVONTE BOBAN N Ot E03.9 HYPOTHYROIDISM, UNSPECIFIED 08/02/2018 DEVONTE BOBAN N Ot E11.22 TYPE 2 DIABETES MELLITUS W DIABETIC CONTROL CLERK 08/02/2018 DEVONTE BOBAN N Ot E78.00 PURE HYPERCHOLESTEROLEMIA, UNSPECIFIED 08/02/2018 DEVONTE BOBAN N Ot G60.9 HEREDITARY AND IDIOPATHIC NEUROPATHY, UN 08/02/2018 LIZY WHITNEY N Ot I25.10 ATHSCL HEART DISEASE OF [place] CORONARY 08/02/2018 LIZY WHITNEY N Ot I25.2 OLD MYOCARDIAL INFARCTION 08/02/2018 LIZY WHITNEY Peña Ot M85.80 OTH DISRD OF BONE DENSITY AND STRUCTURE, 08/02/2018 LIZY WHITNEY Peña Ot N18.3 CHRONIC KIDNEY DISEASE, STAGE 3 (MODERAT 08/02/2018 DEVONTE RONENREGINA Peña Ot Z79.4 SENIOR LIVING (CURRENT) USE OF INSULIN 08/02/2018 DEVONTE LIZY N Ot Z79.899 OTHER SENIOR LIVING (CURRENT) DRUG THERAPY 08/02/2018 DEVONTE LIZY N Ot Z89.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 9 HEART FAILURE, UNSPECIFIED 08/02/2018 ORA PAYAN, MAHESH J Ot R06. 02 SHORTNESS OF BREATH 08/02/2018 MAHESH PAYAN MD J Ot R07. 89 OTHER CHEST PAIN 08/17/2018 MAHESH PAYAN MD J Ot I50. 9 HEART FAILURE, UNSPECIFIED 08/17/2018 ORA PAYAN, MAHESH J Ot R06. 02 SHORTNESS OF BREATH 08/17/2018 ORA PAYAN BASMELANIE J Ot R07. 89 OTHER CHEST PAIN 03/29/2019 DEVONTE LIZY Pompa Ot D47.2 MONOCLONAL GAMMOPATHY 03/29/2019 DEVONTE RONENREGINA Peña Ot E03.9 HYPOTHYROIDISM, UNSPECIFIED 03/29/2019 DEVONTE, LZIY Pompa Ot E11.22 TYPE 2 DIABETES MELLITUS W DIABETIC CONTROL CLERK 03/29/2019 DEVONTE LIZY Pompa Ot E78.00 PURE HYPERCHOLESTEROLEMIA, UNSPECIFIED 03/29/2019 LIZY WHITNEY N Ot I25.10 ATHSCL HEART DISEASE OF [place] CORONARY 03/29/2019 LIZY WHITNEY N Ot I25.2 OLD MYOCARDIAL INFARCTION 03/29/2019 DEVONTE RONENREGINA Peña Ot N18.3 CHRONIC KIDNEY DISEASE, STAGE 3 (MODERAT 03/29/2019 LIZY WHITNEY N Ot Z79.4 SENIOR LIVING (CURRENT) USE OF INSULIN 03/29/2019 DEVONTE LIZY N Ot Z79.899 OTHER SENIOR LIVING (CURRENT) DRUG THERAPY 03/29/2019 DEVONTE LIZY Pompa Ot Z89.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 05/21/2019 LIZY WHITNEY N Ot D47.2 MONOCLONAL GAMMOPATHY 05/21/2019 DEVONTE, RONENAN N Ot E03.9 HYPOTHYROIDISM, UNSPECIFIED 05/21/2019 DEVONTE, BOBAN N Ot E11.22 TYPE 2 DIABETES MELLITUS W DIABETIC CONTROL CLERK 05/21/2019 DEVONTE, LIZY N Ot E78.00 PURE HYPERCHOLESTEROLEMIA, UNSPECIFIED 05/21/2019 DEVONTE, BOBAN N Ot I25.10 ATHSCL HEART DISEASE OF [place] CORONARY 05/21/2019 DEVONTE, BOBAN N Ot I25.2 OLD MYOCARDIAL INFARCTION 05/21/2019 DEVONTE, BOBAN N Ot N18.3 CHRONIC KIDNEY DISEASE, STAGE 3 (MODERAT 05/21/2019 DEVONTE, BOBAN N Ot Z79.4 SENIOR LIVING (CURRENT) USE OF INSULIN 05/21/2019 DEVONTE, BOBAN N Ot Z79.899 OTHER SENIOR LIVING (CURRENT) DRUG THERAPY 05/21/2019 DEVONTE, BOBAN N Ot Z89.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 05/23/2019 LIZY WHITNEY N Ot D47.2 MONOCLONAL GAMMOPATHY 05/23/2019 DEVONTE, RONENAN N Ot E03.9 HYPOTHYROIDISM, UNSPECIFIED 05/23/2019 DEVONTE, BOBAN N Ot E11.22 TYPE 2 DIABETES MELLITUS W DIABETIC CONTROL CLERK 05/23/2019 DEVONTE, LIZY N Ot E78.00 PURE HYPERCHOLESTEROLEMIA, UNSPECIFIED 05/23/2019 DEVONTE, BOBAN N Ot I25.10 ATHSCL HEART DISEASE OF [place] CORONARY 05/23/2019 DEVONTE BOBREGINA N Ot I25.2 OLD MYOCARDIAL INFARCTION 05/23/2019 DEVONTE, BOBREGINA N Ot N18.3 CHRONIC KIDNEY DISEASE, STAGE 3 (MODERAT 05/23/2019 DEVONTE, BOBAN N Ot Z79.4 SENIOR LIVING (CURRENT) USE OF INSULIN 05/23/2019 DEVONTE, BOBAN N Ot Z79.899 OTHER SENIOR LIVING (CURRENT) DRUG THERAPY 05/23/2019 DEVONTE, BOBAN N Ot Z89.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 Procedures There is no data. Results Test Result Range Automated blood complete blood count (he mogram) panel - 03/16/16 08:06 Blood leukocytes automated count (number/volume) 5.7 10*3/uL 4.3-11.0 Blood erythrocytes automated count (number/volume) 4.14 10*6/uL 4.35-5.85 Venous blood hemoglobin measurement (mass/volume) 12.9 g/dL 13.3-17.7 Blood hematocrit (volume fraction) 38 % 40-54 Automated erythrocyte mean corpuscular volume 92 [ foz_us] 80-99 Automated erythrocyte mean corpuscular h emoglobin (mass per erythrocyte) 31 pg 25-34 Automated erythrocyte mean corpuscular h emoglobin concentration measurement (mass/volume) 34 g/dL 32-36 Automated erythrocyte distribution width ratio 13. 0 % 10.0- 14.5 Automated blood platelet count (count/volume) 195 10*3/uL 130-400 Automated blood platelet mean volume measurement 9.4 [foz_us] 7.4-10.4 Complete urinalysis with reflex to cultu re - 03/16/16 08:06 Urine color determination YELLOW NRG Urine clarity determination CLEAR NR G Urine pH measurement by test strip 5 5-9 Specific gravity of urine by test strip 1.015 1.016-1.022 Urine protein assay by test strip, semi-quantitative NEGATIVE NEGATIVE Urine glucose detection by automated test strip NE GATIVE NEGATIVE Erythrocytes detection in urine sediment by light micr oscopy NEGATIVE NEGATIVE Urine ketones detection by automated test strip NE GATIVE NEGATIVE Urine nitrite detection by test strip NEGATIVE NEGATIVE Urine total bilirubin detection by test strip NEGA TIVE NEGATIVE Urine urobilinogen measurement by automated test strip (mass/volume) NORMAL NORMAL Urine leukocyte esterase detection by dipstick NEG ATIVE NEGATIVE Automated urine sediment erythrocyte cou nt by microscopy (number/high power field) NONE NRG Automated urine sediment leukocyte count by microscopy (number/high power field) NONE NRG Bacteria detection in urine sediment by light microsco py NEGATIVE NRG Squamous epithelial cells detection in u rine sediment by light microscopy RARE NRG Crystals detection in urine sediment by light microsco py NONE NRG Casts detection in urine sediment by light microscopy NONE NRG Mucus detection in urine sediment by light microscopy NEGATIVE NRG Complete urinalysis with reflex to culture NO NRG Serum or plasma renal function panel (Na , K, Cl, CO2, BUN, Cr, glucose,Ca, phos, alb) - 03/16/16 08:06 Serum or plasma sodium measurement (moles/volume) 140 mmol/L 135-145 Serum or plasma potassium measurement (moles/volume) 3.8 mmol/L 3.6-5.0 Serum or plasma chloride measurement (moles/volume) 101 mmol/L 98-107 Carbon dioxide 29 mmol/L 21-32 Serum or plasma anion gap determination (moles/volume) 10 mmol/L 5-14 Serum or plasma urea nitrogen measurement (mass/volume ) 20 mg/dL 7-18 Serum or plasma creatinine measurement (mass/volume) 1.28 mg/dL 0.60-1.30 Serum or plasma urea nitrogen/creatinine mass ratio 16 NRG Serum or plasma creatinine measurement w ith calculation of estimated glomerular filtration rate 57 NRG Serum or plasma glucose measurement (mass/volume) 50 mg/dL 70-105 Serum or plasma calcium measurement (mass/volume) 9.1 mg/dL 8.5-10.1 Serum or plasma albumin measurement (mass/volume) 3.8 g/dL 3.2-4.5 Serum or plasma phosphate measurement (mass/volume) 3.5 mg/dL 2.3-4.7 Lipid 1996 panel - 03/16/16 08:06 Serum or plasma triglyceride measurement (mass/volume) 105 mg/dL <150 Serum or plasma cholesterol measurement (mass/volume) 169 mg/dL < 200 Serum or plasma cholesterol in HDL measurement (mass/v olume) 56 mg/dL 40-60 Cholesterol in LDL [mass/volume] in serum or plasma by direct assay 86 mg/dL 1-129 Serum or plasma cholesterol in VLDL measurement (mass/ volume) 21 mg/dL 5-40 Urine protein/creatinine mass ratio - 08:06 Urine protein measurement (mass/volume) < mg/dL 6-12 Urine creatinine measurement (mass/volume) 33 mg/d L 30-125 Urine protein/creatinine mass ratio TNP NRG Hemoglobin A1c - 03/16/16 08:06 Hemoglobin A1c 6.2 % 4.5-6.2 Serum iron and total iron binding capaci ty panel - 03/16/16 08:06 Serum or plasma iron measurement (mass/volume) 64 % 40-180 Total iron binding capacity and transferrin saturation measurement 40 % 15-50 Iron binding capacity [mass/volume] in serum or plasma 162 % 280-380 UIBC (unsaturated iron binding capacity) 98 % 55-450 Serum or plasma ferritin measurement (mass/volume) 1143 % 25-300 25-hydroxyvitamin D measurement - 08:06 25-hydroxy vitamin D measurement 32 % 30-100 Complete blood count (CBC) with automate d white blood cell (WBC) differential - 04/07/16 13:45 Blood leukocytes automated count (number/volume) 5.9 10*3/uL 4.3-11.0 Blood erythrocytes automated count (number/volume) 3.93 10*6/uL 4.35-5.85 Venous blood hemoglobin measurement (mass/volume) 12.4 g/dL 13.3-17.7 Blood hematocrit (volume fraction) 36 % 40-54 Automated erythrocyte mean corpuscular volume 92 [ foz_us] 80-99 Automated erythrocyte mean corpuscular h emoglobin (mass per erythrocyte) 32 pg 25-34 Automated erythrocyte mean corpuscular h emoglobin concentration measurement (mass/volume) 34 g/dL 32-36 Automated erythrocyte distribution width ratio 12. 8 % 10.0- 14.5 Automated blood platelet count (count/volume) 155 10*3/uL 130-400 Automated blood platelet mean volume measurement 9.6 [foz_us] 7.4-10.4 Automated blood neutrophils/100 leukocytes 67 % 42-75 Automated blood lymphocytes/100 leukocytes 23 % 12-44 Blood monocytes/100 leukocytes 8 % 0-12 Automated blood eosinophils/100 leukocytes 2 % 0-10 Automated blood basophils/100 leukocytes 1 % 0-10 Blood neutrophils automated count (number/volume) 4.0 10*3 1.8-7.8 Blood lymphocytes automated count (number/volume) 1.3 10*3 1.0-4.0 Blood monocytes automated count (number/volume) 0. 5 10*3 0.0-1.0 Automated eosinophil count 0.1 10*3/uL 0 .0-0.3 Automated blood basophil count (count/volume) 0.0 10*3/uL 0.0-0.1 PT panel in platelet poor plasma by coag ulation assay - 04/07/16 13:45 Prothrombin time (PT) in platelet poor plasma by coagu lation assay 12.3 s 12.2-14.7 INR in platelet poor plasma or blood by coagulation as say 0.9 0.8-1.4 Whole blood basic metabolic panel - 08/17 13:45 Serum or plasma sodium measurement (moles/volume) 140 mmol/L 135-145 Serum or plasma potassium measurement (moles/volume) 3.9 mmol/L 3.6-5.0 Serum or plasma chloride measurement (moles/volume) 100 mmol/L 98-107 Carbon dioxide 30 mmol/L 21-32 Serum or plasma anion gap determination (moles/volume) 10 mmol/L 5-14 Serum or plasma urea nitrogen measurement (mass/volume ) 15 mg/dL 7-18 Serum or plasma creatinine measurement (mass/volume) 1.22 mg/dL 0.60-1.30 Serum or plasma urea nitrogen/creatinine mass ratio 12 NRG Serum or plasma creatinine measurement w ith calculation of estimated glomerular filtration rate 60 NRG Serum or plasma glucose measurement (mass/volume) 87 mg/dL 70-105 Serum or plasma calcium measurement (mass/volume) 8.9 mg/dL 8.5-10.1 Methicillin resistant Staphylococcus aur eus (MRSA) screening culture - 04/07/16 13:45 Methicillin resistant Staphylococcus aureus (MRSA) scr eening culture NEG NRG Complete urinalysis with reflex to cultu re - 04/07/16 13:55 Urine color determination YELLOW NRG Urine clarity determination CLEAR NR G Urine pH measurement by test strip 6 5-9 Specific gravity of urine by test strip 1.010 1.016-1.022 Urine protein assay by test strip, semi-quantitative NEGATIVE NEGATIVE Urine glucose detection by automated test strip NE GATIVE NEGATIVE Erythrocytes detection in urine sediment by light micr oscopy NEGATIVE NEGATIVE Urine ketones detection by automated test strip NE GATIVE NEGATIVE Urine nitrite detection by test strip NEGATIVE NEGATIVE Urine total bilirubin detection by test strip NEGA TIVE NEGATIVE Urine urobilinogen measurement by automated test strip (mass/volume) NORMAL NORMAL Urine leukocyte esterase detection by dipstick NEG ATIVE NEGATIVE Automated urine sediment erythrocyte cou nt by microscopy (number/high power field) NONE NRG Automated urine sediment leukocyte count by microscopy (number/high power field) NONE NRG Bacteria detection in urine sediment by light microsco py NEGATIVE NRG Squamous epithelial cells detection in u rine sediment by light microscopy RARE NRG Crystals detection in urine sediment by light microsco py NONE NRG Casts detection in urine sediment by light microscopy NONE NRG Mucus detection in urine sediment by light microscopy NEGATIVE NRG Complete urinalysis with reflex to culture NO NRG Capillary blood glucose measurement by g lucometer (mass/volume) - 04/14/16 15:58 Capillary blood glucose measurement by glucometer (mas s/volume) 286 mg/dL 70-110 Capillary blood glucose measurement by g lucometer (mass/volume) - 04/14/16 20:04 Capillary blood glucose measurement by glucometer (mas s/volume) 208 mg/dL 70-110 Complete blood count (CBC) with automate d white blood cell (WBC) differential - 04/15/16 05:18 Blood leukocytes automated count (number/volume) 5.2 10*3/uL 4.3-11.0 Blood erythrocytes automated count (number/volume) 3.10 10*6/uL 4.35-5.85 Venous blood hemoglobin measurement (mass/volume) 9.8 g/dL 13.3-17.7 Blood hematocrit (volume fraction) 28 % 40-54 Automated erythrocyte mean corpuscular volume 91 [ foz_us] 80-99 Automated erythrocyte mean corpuscular h emoglobin (mass per erythrocyte) 32 pg 25-34 Automated erythrocyte mean corpuscular h emoglobin concentration measurement (mass/volume) 35 g/dL 32-36 Automated erythrocyte distribution width ratio 12. 6 % 10.0- 14.5 Automated blood platelet count (count/volume) 131 10*3/uL 130-400 Automated blood platelet mean volume measurement 10.2 [foz_us] 7.4-10.4 Automated blood neutrophils/100 leukocytes 77 % 42-75 Automated blood lymphocytes/100 leukocytes 14 % 12-44 Blood monocytes/100 leukocytes 7 % 0-12 Automated blood eosinophils/100 leukocytes 2 % 0-10 Automated blood basophils/100 leukocytes 0 % 0-10 Blood neutrophils automated count (number/volume) 4.0 10*3 1.8-7.8 Blood lymphocytes automated count (number/volume) 0.7 10*3 1.0-4.0 Blood monocytes automated count (number/volume) 0. 4 10*3 0.0-1.0 Automated eosinophil count 0.1 10*3/uL 0 .0-0.3 Automated blood basophil count (count/volume) 0.0 10*3/uL 0.0-0.1 Comprehensive metabolic panel - 04/15/16 05:18 Serum or plasma sodium measurement (moles/volume) 137 mmol/L 135-145 Serum or plasma potassium measurement (moles/volume) 3.9 mmol/L 3.6-5.0 Serum or plasma chloride measurement (moles/volume) 96 mmol/L 98-107 Carbon dioxide 29 mmol/L 21-32 Serum or plasma anion gap determination (moles/volume) 12 mmol/L 5-14 Serum or plasma urea nitrogen measurement (mass/volume ) 16 mg/dL 7-18 Serum or plasma creatinine measurement (mass/volume) 1.24 mg/dL 0.60-1.30 Serum or plasma urea nitrogen/creatinine mass ratio 13 NRG Serum or plasma creatinine measurement w ith calculation of estimated glomerular filtration rate 59 NRG Serum or plasma glucose measurement (mass/volume) 363 mg/dL 70-105 Serum or plasma calcium measurement (mass/volume) 8.7 mg/dL 8.5-10.1 Serum or plasma total bilirubin measurement (mass/volu me) 0.4 mg/dL 0.1-1.0 Serum or plasma alkaline phosphatase radha surement (enzymatic activity/volume) 70 U/L 40-136 Serum or plasma aspartate aminotransfera se measurement (enzymatic activity/volume) 29 U/L 5-34 Serum or plasma alanine aminotransferase measurement (enzymatic activity/volume) 11 U/L 0-55 Serum or plasma protein measurement (mass/volume) 5.2 g/dL 6.4-8.2 Serum or plasma albumin measurement (mass/volume) 3.1 g/dL 3.2-4.5 Capillary blood glucose measurement by g lucometer (mass/volume) - 04/15/16 05:39 Capillary blood glucose measurement by glucometer (mas s/volume) 365 mg/dL 70-110 Capillary blood glucose measurement by g lucometer (mass/volume) - 04/15/16 10:59 Capillary blood glucose measurement by glucometer (mas s/volume) 257 mg/dL 70-110 Capillary blood glucose measurement by g lucometer (mass/volume) - 04/15/16 16:17 Capillary blood glucose measurement by glucometer (mas s/volume) 410 mg/dL 70-110 Capillary blood glucose measurement by g lucometer (mass/volume) - 04/15/16 20:18 Capillary blood glucose measurement by glucometer (mas s/volume) 228 mg/dL 70-110 Capillary blood glucose measurement by g lucometer (mass/volume) - 04/16/16 05:33 Capillary blood glucose measurement by glucometer (mas s/volume) 239 mg/dL 70-110 Capillary blood glucose measurement by g lucometer (mass/volume) - 04/16/16 11:08 Capillary blood glucose measurement by glucometer (mas s/volume) 129 mg/dL 70-110 Capillary blood glucose measurement by g lucometer (mass/volume) - 04/16/16 16:15 Capillary blood glucose measurement by glucometer (mas s/volume) 189 mg/dL 70-110 Capillary blood glucose measurement by g lucometer (mass/volume) - 04/16/16 22:20 Capillary blood glucose measurement by glucometer (mas s/volume) 358 mg/dL 70-110 Capillary blood glucose measurement by g lucometer (mass/volume) - 04/17/16 05:48 Capillary blood glucose measurement by glucometer (mas s/volume) 46 mg/dL 70-110 Capillary blood glucose measurement by g lucometer (mass/volume) - 04/17/16 06:10 Capillary blood glucose measurement by glucometer (mas s/volume) 99 mg/dL 70-110 Capillary blood glucose measurement by g lucometer (mass/volume) - 04/17/16 11:04 Capillary blood glucose measurement by glucometer (mas s/volume) 201 mg/dL 70-110 Capillary blood glucose measurement by g lucometer (mass/volume) - 04/17/16 17:00 Capillary blood glucose measurement by glucometer (mas s/volume) 102 mg/dL 70-110 Capillary blood glucose measurement by g lucometer (mass/volume) - 04/17/16 21:25 Capillary blood glucose measurement by glucometer (mas s/volume) 88 mg/dL 70-110 Capillary blood glucose measurement by g lucometer (mass/volume) - 04/18/16 04:19 Capillary blood glucose measurement by glucometer (mas s/volume) 111 mg/dL 70-110 Capillary blood glucose measurement by g lucometer (mass/volume) - 04/18/16 08:42 Capillary blood glucose measurement by glucometer (mas s/volume) 44 mg/dL 70-110 Capillary blood glucose measurement by g lucometer (mass/volume) - 04/18/16 08:55 Capillary blood glucose measurement by glucometer (mas s/volume) 51 mg/dL 70-110 Capillary blood glucose measurement by g lucometer (mass/volume) - 04/18/16 09:28 Capillary blood glucose measurement by glucometer (mas s/volume) 99 mg/dL 70-110 Capillary blood glucose measurement by g lucometer (mass/volume) - 04/18/16 11:07 Capillary blood glucose measurement by glucometer (mas s/volume) 154 mg/dL 70-110 Capillary blood glucose measurement by g lucometer (mass/volume) - 04/19/16 11:04 Capillary blood glucose measurement by glucometer (mas s/volume) 137 mg/dL 70-110 Capillary blood glucose measurement by g lucometer (mass/volume) - 04/19/16 15:59 Capillary blood glucose measurement by glucometer (mas s/volume) 199 mg/dL 70-110 Capillary blood glucose measurement by g lucometer (mass/volume) - 04/20/16 15:42 Capillary blood glucose measurement by glucometer (mas s/volume) 122 mg/dL 70-110 Capillary blood glucose measurement by g lucometer (mass/volume) - 04/20/16 20:59 Capillary blood glucose measurement by glucometer (mas s/volume) 183 mg/dL 70-110 Capillary blood glucose measurement by g lucometer (mass/volume) - 04/21/16 06:28 Capillary blood glucose measurement by glucometer (mas s/volume) 195 mg/dL 70-110 Capillary blood glucose measurement by g lucometer (mass/volume) - 04/21/16 11:20 Capillary blood glucose measurement by glucometer (mas s/volume) 256 mg/dL 70-110 Capillary blood glucose measurement by g lucometer (mass/volume) - 04/21/16 16:25 Capillary blood glucose measurement by glucometer (mas s/volume) 100 mg/dL 70-110 Capillary blood glucose measurement by g lucometer (mass/volume) - 04/21/16 21:04 Capillary blood glucose measurement by glucometer (mas s/volume) 203 mg/dL 70-110 Capillary blood glucose measurement by g lucometer (mass/volume) - 04/22/16 06:44 Capillary blood glucose measurement by glucometer (mas s/volume) 161 mg/dL 70-110 Capillary blood glucose measurement by g lucometer (mass/volume) - 04/22/16 11:19 Capillary blood glucose measurement by glucometer (mas s/volume) 243 mg/dL 70-110 Capillary blood glucose measurement by g lucometer (mass/volume) - 04/22/16 16:30 Capillary blood glucose measurement by glucometer (mas s/volume) 138 mg/dL 70-110 Capillary blood glucose measurement by g lucometer (mass/volume) - 04/22/16 21:00 Capillary blood glucose measurement by glucometer (mas s/volume) 242 mg/dL 70-110 Capillary blood glucose measurement by g lucometer (mass/volume) - 04/23/16 06:01 Capillary blood glucose measurement by glucometer (mas s/volume) 137 mg/dL 70-110 Capillary blood glucose measurement by g lucometer (mass/volume) - 04/23/16 11:23 Capillary blood glucose measurement by glucometer (mas s/volume) 226 mg/dL 70-110 Capillary blood glucose measurement by g lucometer (mass/volume) - 04/23/16 16:17 Capillary blood glucose measurement by glucometer (mas s/volume) 139 mg/dL 70-110 Capillary blood glucose measurement by g lucometer (mass/volume) - 04/23/16 20:41 Capillary blood glucose measurement by glucometer (mas s/volume) 211 mg/dL 70-110 Capillary blood glucose measurement by g lucometer (mass/volume) - 04/24/16 06:11 Capillary blood glucose measurement by glucometer (mas s/volume) 132 mg/dL 70-110 Capillary blood glucose measurement by g lucometer (mass/volume) - 04/24/16 11:52 Capillary blood glucose measurement by glucometer (mas s/volume) 191 mg/dL 70-110 Capillary blood glucose measurement by g lucometer (mass/volume) - 04/24/16 16:14 Capillary blood glucose measurement by glucometer (mas s/volume) 133 mg/dL 70-110 Capillary blood glucose measurement by g lucometer (mass/volume) - 04/24/16 20:18 Capillary blood glucose measurement by glucometer (mas s/volume) 196 mg/dL 70-110 Capillary blood glucose measurement by g lucometer (mass/volume) - 04/25/16 05:49 Capillary blood glucose measurement by glucometer (mas s/volume) 311 mg/dL 70-110 Capillary blood glucose measurement by g lucometer (mass/volume) - 04/25/16 11:12 Capillary blood glucose measurement by glucometer (mas s/volume) 117 mg/dL 70-110 Capillary blood glucose measurement by g lucometer (mass/volume) - 04/26/16 11:09 Capillary blood glucose measurement by glucometer (mas s/volume) 181 mg/dL 70-110 Capillary blood glucose measurement by g lucometer (mass/volume) - 04/26/16 16:03 Capillary blood glucose measurement by glucometer (mas s/volume) 120 mg/dL 70-110 Capillary blood glucose measurement by g lucometer (mass/volume) - 04/26/16 20:23 Capillary blood glucose measurement by glucometer (mas s/volume) 230 mg/dL 70-110 Capillary blood glucose measurement by g lucometer (mass/volume) - 04/27/16 05:45 Capillary blood glucose measurement by glucometer (mas s/volume) 143 mg/dL 70-110 Capillary blood glucose measurement by g lucometer (mass/volume) - 04/27/16 11:17 Capillary blood glucose measurement by glucometer (mas s/volume) 219 mg/dL 70-110 Capillary blood glucose measurement by g lucometer (mass/volume) - 04/27/16 15:44 Capillary blood glucose measurement by glucometer (mas s/volume) 225 mg/dL 70-110 Hemoglobin A1c - 09/19/16 09:09 Hemoglobin A1c 7.1 % 4.5-6.2 THYROID STIMULATING HORMONE - 09/19/16 0 9:09 THYROID STIMULATING HORMONE 0.20 u[iU]/mL 0.35-4.94 Serum or plasma thyroxine (T4) free chalo urement (mass/volume) - 09/19/16 09:09 Serum or plasma thyroxine (T4) free measurement (mass/ volume) 0.81 ng/dL 0.70-1.48 Automated blood complete blood count (he mogram) panel - 09/27/16 13:07 Blood leukocytes automated count (number/volume) 5.2 10*3/uL 4.3-11.0 Blood erythrocytes automated count (number/volume) 4.06 10*6/uL 4.35-5.85 Venous blood hemoglobin measurement (mass/volume) 12.6 g/dL 13.3-17.7 Blood hematocrit (volume fraction) 36 % 40-54 Automated erythrocyte mean corpuscular volume 88 [ foz_us] 80-99 Automated erythrocyte mean corpuscular h emoglobin (mass per erythrocyte) 31 pg 25-34 Automated erythrocyte mean corpuscular h emoglobin concentration measurement (mass/volume) 35 g/dL 32-36 Automated erythrocyte distribution width ratio 12. 8 % 10.0- 14.5 Automated blood platelet count (count/volume) 176 10*3/uL 130-400 Automated blood platelet mean volume measurement 10.1 [foz_us] 7.4-10.4 Serum or plasma renal function panel (Na , K, Cl, CO2, BUN, Cr, glucose,Ca, phos, alb) - 09/27/16 13:07 Serum or plasma sodium measurement (moles/volume) 141 mmol/L 135-145 Serum or plasma potassium measurement (moles/volume) 3.6 mmol/L 3.6-5.0 Serum or plasma chloride measurement (moles/volume) 97 mmol/L 98-107 Carbon dioxide 32 mmol/L 21-32 Serum or plasma anion gap determination (moles/volume) 12 mmol/L 5-14 Serum or plasma urea nitrogen measurement (mass/volume ) 23 mg/dL 7-18 Serum or plasma creatinine measurement (mass/volume) 1.36 mg/dL 0.60-1.30 Serum or plasma urea nitrogen/creatinine mass ratio 17 NRG Serum or plasma creatinine measurement w ith calculation of estimated glomerular filtration rate 53 NRG Serum or plasma glucose measurement (mass/volume) 100 mg/dL 70-105 Serum or plasma calcium measurement (mass/volume) 9.1 mg/dL 8.5-10.1 Serum or plasma albumin measurement (mass/volume) 3.9 g/dL 3.2-4.5 Serum or plasma phosphate measurement (mass/volume) 3.6 mg/dL 2.3-4.7 Lipid 1996 panel - 09/27/16 13:07 Serum or plasma triglyceride measurement (mass/volume) 182 mg/dL <150 Serum or plasma cholesterol measurement (mass/volume) 170 mg/dL < 200 Serum or plasma cholesterol in HDL measurement (mass/v olume) 50 mg/dL 40-60 Cholesterol in LDL [mass/volume] in serum or plasma by direct assay 85 mg/dL 1-129 Serum or plasma cholesterol in VLDL measurement (mass/ volume) 36 mg/dL 5-40 Serum iron and total iron binding capaci ty panel - 09/27/16 13:07 Serum or plasma iron measurement (mass/volume) 54 % 40-180 Total iron binding capacity and transferrin saturation measurement 33 % 15-50 Iron binding capacity [mass/volume] in serum or plasma 165 % 280-380 UIBC (unsaturated iron binding capacity) 111 % NRG Serum or plasma ferritin measurement (mass/volume) 1084.0 % 25.0-300.0 25-hydroxyvitamin D measurement - 13:07 25-hydroxy vitamin D measurement 45 % 30-100 Complete urinalysis with reflex to cultu re - 09/27/16 13:22 Urine color determination YELLOW NRG Urine clarity determination CLEAR NR G Urine pH measurement by test strip 5 5-9 Specific gravity of urine by test strip 1.015 1.016-1.022 Urine protein assay by test strip, semi-quantitative NEGATIVE NEGATIVE Urine glucose detection by automated test strip 1+ NEGATIVE Erythrocytes detection in urine sediment by light micr oscopy NEGATIVE NEGATIVE Urine ketones detection by automated test strip NE GATIVE NEGATIVE Urine nitrite detection by test strip NEGATIVE NEGATIVE Urine total bilirubin detection by test strip NEGA TIVE NEGATIVE Urine urobilinogen measurement by automated test strip (mass/volume) NORMAL NORMAL Urine leukocyte esterase detection by dipstick NEG ATIVE NEGATIVE Automated urine sediment erythrocyte cou nt by microscopy (number/high power field) NONE NRG Automated urine sediment leukocyte count by microscopy (number/high power field) NONE NRG Bacteria detection in urine sediment by light microsco py NEGATIVE NRG Squamous epithelial cells detection in u rine sediment by light microscopy RARE NRG Crystals detection in urine sediment by light microsco py NONE NRG Casts detection in urine sediment by light microscopy PRESENT NRG Mucus detection in urine sediment by light microscopy NEGATIVE NRG Complete urinalysis with reflex to culture NO NRG Hyaline casts detection in urine sediment by light radha roscopy 2-5 NRG Urine protein/creatinine mass ratio - 13:22 Urine protein measurement (mass/volume) 9 mg/dL 6-12 Urine creatinine measurement (mass/volume) 119 mg/ dL 30-125 Urine protein/creatinine mass ratio 0.08 NRG Gram stain microscopy - 09/29/16 13:15 GRAM STAIN RESULT NO WBC'S OR BACTERIA OBSERVED NRG Bacteria identification in wound by cult ure - 09/29/16 13:15 Bacteria identification in wound by culture [id number] NRG QUANTITY OF GROWTH Scant Growth NRG Complete blood count (CBC) with automate d white blood cell (WBC) differential - 09/29/16 13:22 Blood leukocytes automated count (number/volume) 3.7 10*3/uL 4.3-11.0 Blood erythrocytes automated count (number/volume) 3.85 10*6/uL 4.35-5.85 Venous blood hemoglobin measurement (mass/volume) 11.8 g/dL 13.3-17.7 Blood hematocrit (volume fraction) 35 % 40-54 Automated erythrocyte mean corpuscular volume 90 [ foz_us] 80-99 Automated erythrocyte mean corpuscular h emoglobin (mass per erythrocyte) 31 pg 25-34 Automated erythrocyte mean corpuscular h emoglobin concentration measurement (mass/volume) 34 g/dL 32-36 Automated erythrocyte distribution width ratio 12. 9 % 10.0- 14.5 Automated blood platelet count (count/volume) 130 10*3/uL 130-400 Automated blood platelet mean volume measurement 9.8 [foz_us] 7.4-10.4 Automated blood neutrophils/100 leukocytes 69 % 42-75 Automated blood lymphocytes/100 leukocytes 19 % 12-44 Blood monocytes/100 leukocytes 9 % 0-12 Automated blood eosinophils/100 leukocytes 3 % 0-10 Automated blood basophils/100 leukocytes 1 % 0-10 Blood neutrophils automated count (number/volume) 2.5 10*3 1.8-7.8 Blood lymphocytes automated count (number/volume) 0.7 10*3 1.0-4.0 Blood monocytes automated count (number/volume) 0. 3 10*3 0.0-1.0 Automated eosinophil count 0.1 10*3/uL 0 .0-0.3 Automated blood basophil count (count/volume) 0.0 10*3/uL 0.0-0.1 Serum or plasma C reactive protein measu rement (mass/volume) - 09/29/16 13:22 Serum or plasma C reactive protein measurement (mass/v olume) 0.13 mg/dL 0.00-0.50 Erythrocyte sedimentation rate by melani gren method - 09/29/16 13:22 Erythrocyte sedimentation rate by westergren method 9 mm 0- 30 Complete blood count (CBC) with automate d white blood cell (WBC) differential - 11/20/16 09:25 Blood leukocytes automated count (number/volume) 5.1 10*3/uL 4.3-11.0 Blood erythrocytes automated count (number/volume) 4.33 10*6/uL 4.35-5.85 Venous blood hemoglobin measurement (mass/volume) 13.4 g/dL 13.3-17.7 Blood hematocrit (volume fraction) 40 % 40-54 Automated erythrocyte mean corpuscular volume 92 [ foz_us] 80-99 Automated erythrocyte mean corpuscular h emoglobin (mass per erythrocyte) 31 pg 25-34 Automated erythrocyte mean corpuscular h emoglobin concentration measurement (mass/volume) 34 g/dL 32-36 Automated erythrocyte distribution width ratio 13. 3 % 10.0- 14.5 Automated blood platelet count (count/volume) 158 10*3/uL 130-400 Automated blood platelet mean volume measurement 9.9 [foz_us] 7.4-10.4 Automated blood neutrophils/100 leukocytes 75 % 42-75 Automated blood lymphocytes/100 leukocytes 16 % 12-44 Blood monocytes/100 leukocytes 7 % 0-12 Automated blood eosinophils/100 leukocytes 1 % 0-10 Automated blood basophils/100 leukocytes 0 % 0-10 Blood neutrophils automated count (number/volume) 3.9 10*3 1.8-7.8 Blood lymphocytes automated count (number/volume) 0.8 10*3 1.0-4.0 Blood monocytes automated count (number/volume) 0. 4 10*3 0.0-1.0 Automated eosinophil count 0.1 10*3/uL 0 .0-0.3 Automated blood basophil count (count/volume) 0.0 10*3/uL 0.0-0.1 Comprehensive metabolic panel - 11/20/16 09:25 Serum or plasma sodium measurement (moles/volume) 143 mmol/L 135-145 Serum or plasma potassium measurement (moles/volume) 3.6 mmol/L 3.6-5.0 Serum or plasma chloride measurement (moles/volume) 101 mmol/L 98-107 Carbon dioxide 31 mmol/L 21-32 Serum or plasma anion gap determination (moles/volume) 11 mmol/L 5-14 Serum or plasma urea nitrogen measurement (mass/volume ) 22 mg/dL 7-18 Serum or plasma creatinine measurement (mass/volume) 1.34 mg/dL 0.60-1.30 Serum or plasma urea nitrogen/creatinine mass ratio 16 NRG Serum or plasma creatinine measurement w ith calculation of estimated glomerular filtration rate 54 NRG Serum or plasma glucose measurement (mass/volume) 149 mg/dL 70-105 Serum or plasma calcium measurement (mass/volume) 9.5 mg/dL 8.5-10.1 Serum or plasma total bilirubin measurement (mass/volu me) 0.4 mg/dL 0.1-1.0 Serum or plasma alkaline phosphatase radha surement (enzymatic activity/volume) 69 U/L 40-136 Serum or plasma aspartate aminotransfera se measurement (enzymatic activity/volume) 37 U/L 5-34 Serum or plasma alanine aminotransferase measurement (enzymatic activity/volume) 26 U/L 0-55 Serum or plasma protein measurement (mass/volume) 6.9 g/dL 6.4-8.2 Serum or plasma albumin measurement (mass/volume) 4.2 g/dL 3.2-4.5 Serum or plasma amylase measurement (enz ymatic activity/volume) - 11/20/16 09:25 Serum or plasma amylase measurement (enzymatic activit y/volume) 26 U/L 25-125 Lipase - 11/20/16 09:25 Lipase 4 U/L 8-78 Complete urinalysis with reflex to cultu re - 11/20/16 10:11 Urine color determination YELLOW NRG Urine clarity determination CLEAR NR G Urine pH measurement by test strip 5 5-9 Specific gravity of urine by test strip 1.025 1.016-1.022 Urine protein assay by test strip, semi-quantitative 1+ NEGATIVE Urine glucose detection by automated test strip NE GATIVE NEGATIVE Erythrocytes detection in urine sediment by light micr oscopy 1+ NEGATIVE Urine ketones detection by automated test strip 2+ NEGATIVE Urine nitrite detection by test strip NEGATIVE NEGATIVE Urine total bilirubin detection by test strip NEGA TIVE NEGATIVE Urine urobilinogen measurement by automated test strip (mass/volume) NORMAL NORMAL Urine leukocyte esterase detection by dipstick NEG ATIVE NEGATIVE Automated urine sediment erythrocyte cou nt by microscopy (number/high power field) NONE NRG Automated urine sediment leukocyte count by microscopy (number/high power field) [HPF] NRG Bacteria detection in urine sediment by light microsco py NEGATIVE NRG Crystals detection in urine sediment by light microsco py NONE NRG Casts detection in urine sediment by light microscopy NONE NRG Mucus detection in urine sediment by light microscopy TRACE NRG Complete urinalysis with reflex to culture NO NRG Automated blood complete blood count (he mogram) panel - 04/19/17 07:25 Blood leukocytes automated count (number/volume) 5.0 10*3/uL 4.3-11.0 Blood erythrocytes automated count (number/volume) 3.79 10*6/uL 4.35-5.85 Venous blood hemoglobin measurement (mass/volume) 11.9 g/dL 13.3-17.7 Blood hematocrit (volume fraction) 35 % 40-54 Automated erythrocyte mean corpuscular volume 91 [ foz_us] 80-99 Automated erythrocyte mean corpuscular h emoglobin (mass per erythrocyte) 31 pg 25-34 Automated erythrocyte mean corpuscular h emoglobin concentration measurement (mass/volume) 35 g/dL 32-36 Automated erythrocyte distribution width ratio 12. 8 % 10.0- 14.5 Automated blood platelet count (count/volume) 155 10*3/uL 130-400 Automated blood platelet mean volume measurement 9.4 [foz_us] 7.4-10.4 Comprehensive metabolic panel - 04/19/17 07:25 Serum or plasma sodium measurement (moles/volume) 136 mmol/L 135-145 Serum or plasma potassium measurement (moles/volume) 4.2 mmol/L 3.6-5.0 Serum or plasma chloride measurement (moles/volume) 99 mmol/L 98-107 Carbon dioxide 28 mmol/L 21-32 Serum or plasma anion gap determination (moles/volume) 9 mmol/L 5-14 Serum or plasma urea nitrogen measurement (mass/volume ) 28 mg/dL 7-18 Serum or plasma creatinine measurement (mass/volume) 1.55 mg/dL 0.60-1.30 Serum or plasma urea nitrogen/creatinine mass ratio 18 NRG Serum or plasma creatinine measurement w ith calculation of estimated glomerular filtration rate 46 NRG Serum or plasma glucose measurement (mass/volume) 359 mg/dL 70-105 Serum or plasma calcium measurement (mass/volume) 8.9 mg/dL 8.5-10.1 Serum or plasma total bilirubin measurement (mass/volu me) 0.2 mg/dL 0.1-1.0 Serum or plasma alkaline phosphatase radha surement (enzymatic activity/volume) 95 U/L 40-136 Serum or plasma aspartate aminotransfera se measurement (enzymatic activity/volume) 40 U/L 5-34 Serum or plasma alanine aminotransferase measurement (enzymatic activity/volume) 45 U/L 0-55 Serum or plasma protein measurement (mass/volume) 6.0 g/dL 6.4-8.2 Serum or plasma albumin measurement (mass/volume) 3.7 g/dL 3.2-4.5 THYROID STIMULATING HORMONE - 04/19/17 0 7:25 THYROID STIMULATING HORMONE 0.05 u[iU]/mL 0.35-4.94 Serum or plasma thyroxine (T4) free chalo urement (mass/volume) - 04/19/17 07:25 Serum or plasma thyroxine (T4) free measurement (mass/ volume) 1.04 ng/dL 0.70-1.48 Serum iron and total iron binding capaci ty panel - 04/19/17 07:25 Serum or plasma iron measurement (mass/volume) 86 % 40-180 Total iron binding capacity and transferrin saturation measurement 49 % 15-50 Iron binding capacity [mass/volume] in serum or plasma 175 % 280-380 UIBC (unsaturated iron binding capacity) 89 % 55-450 Serum or plasma ferritin measurement (mass/volume) 1274.0 % 25.0-300.0 25-hydroxyvitamin D measurement - 07:25 25-hydroxy vitamin D measurement 52 % 30-100 Hemoglobin A1c - 04/19/17 07:30 Hemoglobin A1c 7.7 % 4.5-6.2 Serum or plasma renal function panel (Na , K, Cl, CO2, BUN, Cr, glucose,Ca, phos, alb) - 04/19/17 07:30 Serum or plasma sodium measurement (moles/volume) 136 mmol/L 135-145 Serum or plasma potassium measurement (moles/volume) 4.2 mmol/L 3.6-5.0 Serum or plasma chloride measurement (moles/volume) 98 mmol/L 98-107 Carbon dioxide 27 mmol/L 21-32 Serum or plasma anion gap determination (moles/volume) 11 mmol/L 5-14 Serum or plasma urea nitrogen measurement (mass/volume ) 28 mg/dL 7-18 Serum or plasma creatinine measurement (mass/volume) 1.54 mg/dL 0.60-1.30 Serum or plasma urea nitrogen/creatinine mass ratio 18 NRG Serum or plasma creatinine measurement w ith calculation of estimated glomerular filtration rate 46 NRG Serum or plasma glucose measurement (mass/volume) 361 mg/dL 70-105 Serum or plasma calcium measurement (mass/volume) 9.0 mg/dL 8.5-10.1 Serum or plasma albumin measurement (mass/volume) 3.7 g/dL 3.2-4.5 Serum or plasma phosphate measurement (mass/volume) 3.6 mg/dL 2.3-4.7 Complete urinalysis with reflex to cultu re - 04/19/17 07:31 Urine color determination YELLOW NRG Urine clarity determination CLEAR NR G Urine pH measurement by test strip 6 5-9 Specific gravity of urine by test strip 1.015 1.016-1.022 Urine protein assay by test strip, semi-quantitative NEGATIVE NEGATIVE Urine glucose detection by automated test strip 4+ NEGATIVE Erythrocytes detection in urine sediment by light micr oscopy NEGATIVE NEGATIVE Urine ketones detection by automated test strip NE GATIVE NEGATIVE Urine nitrite detection by test strip NEGATIVE NEGATIVE Urine total bilirubin detection by test strip NEGA TIVE NEGATIVE Urine urobilinogen measurement by automated test strip (mass/volume) NORMAL NORMAL Urine leukocyte esterase detection by dipstick NEG ATIVE NEGATIVE Automated urine sediment erythrocyte cou nt by microscopy (number/high power field) RARE NRG Automated urine sediment leukocyte count by microscopy (number/high power field) NONE NRG Bacteria detection in urine sediment by light microsco py NEGATIVE NRG Squamous epithelial cells detection in u rine sediment by light microscopy RARE NRG Crystals detection in urine sediment by light microsco py NONE NRG Casts detection in urine sediment by light microscopy NONE NRG Mucus detection in urine sediment by light microscopy NEGATIVE NRG Complete urinalysis with reflex to culture NO NRG Urine protein/creatinine mass ratio - 07:31 Urine protein measurement (mass/volume) < mg/dL 6-12 Urine creatinine measurement (mass/volume) 49 mg/d L 30-125 Urine protein/creatinine mass ratio TNP NRG Urine microalbumin measurement by test s trip (mass/volume) - 04/19/17 07:31 Urine creatinine measurement (mass/volume) 57 % NRG Microalbumin [mass/volume] in urine 19.0 % 0.0-20.0 Microalbumin/creatinine [ratio] in urine 33.3 mg/g {Cre} 0.0- 30.0 Lipid 1996 panel - 08/09/17 13:10 Serum or plasma triglyceride measurement (mass/volume) 203 mg/dL <150 Serum or plasma cholesterol measurement (mass/volume) 156 mg/dL < 200 Serum or plasma cholesterol in HDL measurement (mass/v olume) 55 mg/dL 40-60 Cholesterol in LDL [mass/volume] in serum or plasma by direct assay 78 mg/dL 1-129 Serum or plasma cholesterol in VLDL measurement (mass/ volume) 41 mg/dL 5-40 THYROID STIMULATING HORMONE - 05/02/18 1 4:40 THYROID STIMULATING HORMONE 3.41 u[iU]/mL 0.35-4.94 Serum or plasma thyroxine (T4) free chalo urement (mass/volume) - 05/02/18 14:40 Serum or plasma thyroxine (T4) free measurement (mass/ volume) 0.96 ng/dL 0.70-1.48 Serum or plasma ethanol measurement (mas s/volume) - 05/02/18 14:40 Serum or plasma ethanol measurement (mass/volume) < mg/dL <10 Blood lactic acid measurement (moles/vol ume) - 05/02/18 14:40 Blood lactic acid measurement (moles/volume) 2.46 mmol/L 0.50-2.00 Bacterial blood culture - 05/02/18 14:40 Bacterial blood culture NG NRG Capillary blood glucose measurement by g lucometer (mass/volume) - 05/02/18 14:42 Capillary blood glucose measurement by glucometer (mas s/volume) > mg/dL 70-110 Complete blood count (CBC) with automate d white blood cell (WBC) differential - 05/02/18 14:49 Blood leukocytes automated count (number/volume) 13.2 10*3/uL 4.3-11.0 Blood erythrocytes automated count (number/volume) 4.03 10*6/uL 4.35-5.85 Venous blood hemoglobin measurement (mass/volume) 12.3 g/dL 13.3-17.7 Blood hematocrit (volume fraction) 36 % 40-54 Automated erythrocyte mean corpuscular volume 90 [ foz_us] 80-99 Automated erythrocyte mean corpuscular h emoglobin (mass per erythrocyte) 31 pg 25-34 Automated erythrocyte mean corpuscular h emoglobin concentration measurement (mass/volume) 34 g/dL 32-36 Automated erythrocyte distribution width ratio 13. 7 % 10.0- 14.5 Automated blood platelet count (count/volume) 189 10*3/uL 130-400 Automated blood platelet mean volume measurement 11.9 [foz_us] 7.4-10.4 Automated blood neutrophils/100 leukocytes 88 % 42-75 Automated blood lymphocytes/100 leukocytes 6 % 12-44 Blood monocytes/100 leukocytes 6 % 0-12 Automated blood eosinophils/100 leukocytes 0 % 0-10 Automated blood basophils/100 leukocytes 0 % 0-10 Blood neutrophils automated count (number/volume) 11.6 10*3 1.8-7.8 Blood lymphocytes automated count (number/volume) 0.8 10*3 1.0-4.0 Blood monocytes automated count (number/volume) 0. 8 10*3 0.0-1.0 Automated eosinophil count 0.0 10*3/uL 0 .0-0.3 Automated blood basophil count (count/volume) 0.0 10*3/uL 0.0-0.1 PT panel in platelet poor plasma by coag ulation assay - 05/02/18 14:49 Prothrombin time (PT) in platelet poor plasma by coagu lation assay 18.5 s 12.2-14.7 INR in platelet poor plasma or blood by coagulation as say 1.5 0.8-1.4 Activated partial thromboplastin time (a PTT) in platelet poor plasma bycoagulation assay - 05/02/18 14:49 Activated partial thromboplastin time (a PTT) in platelet poor plasma bycoagulation assay 30 s 24-35 Fibrin D-dimer FEU measurement in platel et poor plasma (mass/volume) - 05/02/18 14:49 Fibrin D-dimer FEU measurement in platelet poor plasma (mass/volume) 3.34 ug/mL 0.00-0.49 Comprehensive metabolic panel - 05/02/18 14:49 Serum or plasma sodium measurement (moles/volume) 132 mmol/L 135-145 Serum or plasma potassium measurement (moles/volume) 5.1 mmol/L 3.6-5.0 Serum or plasma chloride measurement (moles/volume) 89 mmol/L 98-107 Carbon dioxide 11 mmol/L 21-32 Serum or plasma anion gap determination (moles/volume) 32 mmol/L 5-14 Serum or plasma urea nitrogen measurement (mass/volume ) 80 mg/dL 7-18 Serum or plasma creatinine measurement (mass/volume) 2.56 mg/dL 0.60-1.30 Serum or plasma urea nitrogen/creatinine mass ratio 31 NRG Serum or plasma creatinine measurement w ith calculation of estimated glomerular filtration rate 25 NRG Serum or plasma glucose measurement (mass/volume) 730 mg/dL 70-105 Serum or plasma calcium measurement (mass/volume) 9.5 mg/dL 8.5-10.1 Serum or plasma total bilirubin measurement (mass/volu me) 0.8 mg/dL 0.1-1.0 Serum or plasma alkaline phosphatase radha surement (enzymatic activity/volume) 95 U/L 40-136 Serum or plasma aspartate aminotransfera se measurement (enzymatic activity/volume) 242 U/L 5-34 Serum or plasma alanine aminotransferase measurement (enzymatic activity/volume) 97 U/L 0-55 Serum or plasma protein measurement (mass/volume) 7.0 g/dL 6.4-8.2 Serum or plasma albumin measurement (mass/volume) 3.9 g/dL 3.2-4.5 CALCIUM CORRECTED 9.6 mg/dL 8.5-10.1 Blood manual differential performed dete ction - 05/02/18 14:49 Blood monocytes/100 leukocytes 4 % NRG Manual blood segmented neutrophils/100 leukocytes 80 % NRG Blood band neutrophils/100 leukocytes 11 % NRG Manual blood lymphocytes/100 leukocytes 5 % NRG Manual eosinophils/100 leukocytes in nose 0 % NRG Manual blood basophils/100 leukocytes 0 % NRG Blood erythrocyte morphology finding identification NORMAL NRG Serum or plasma creatine kinase measurem ent (enzymatic activity/volume) - 05/02/18 14:49 Serum or plasma creatine kinase measurem ent (enzymatic activity/volume) 5634 U/L 30-200 Serum or plasma troponin i.cardiac measu rement (mass/volume) - 05/02/18 14:49 Serum or plasma troponin i.cardiac measurement (mass/v olume) 13.506 ng/mL <0.028 Complete urinalysis with reflex to cultu re - 05/02/18 14:54 Urine color determination YELLOW NRG Urine clarity determination CLEAR NR G Urine pH measurement by test strip 5 5-9 Specific gravity of urine by test strip 1.020 1.016-1.022 Urine protein assay by test strip, semi-quantitative NEGATIVE NEGATIVE Urine glucose detection by automated test strip 4+ NEGATIVE Erythrocytes detection in urine sediment by light micr oscopy 3+ NEGATIVE Urine ketones detection by automated test strip 4+ NEGATIVE Urine nitrite detection by test strip NEGATIVE NEGATIVE Urine total bilirubin detection by test strip NEGA TIVE NEGATIVE Urine urobilinogen measurement by automated test strip (mass/volume) NORMAL NORMAL Urine leukocyte esterase detection by dipstick NEG ATIVE NEGATIVE Automated urine sediment erythrocyte cou nt by microscopy (number/high power field) [HPF] NRG Automated urine sediment leukocyte count by microscopy (number/high power field) NONE NRG Bacteria detection in urine sediment by light microsco py NONE NRG Squamous epithelial cells detection in u rine sediment by light microscopy RARE NRG Crystals detection in urine sediment by light microsco py NONE NRG Casts detection in urine sediment by light microscopy NONE NRG Mucus detection in urine sediment by light microscopy NEGATIVE NRG Complete urinalysis with reflex to culture NO NRG Urine drug screening test - 05/02/18 14: 54 Urine phencyclidine detection by screening method NEGATIVE NEGATIVE Urine benzodiazepines detection by screening method NEGATIVE NEGATIVE Urine cocaine detection NEGATIVE NEGATI VE Urine amphetamines detection by screening method N EGATIVE NEGATIVE Urine methamphetamine detection by screening method NEGATIVE NEGATIVE Urine cannabinoids detection by screening method N EGATIVE NEGATIVE Urine opiates detection by screening method NEGATI VE NEGATIVE Urine barbiturates detection NEGATIVE N EGATIVE Screening urine tricyclic antidepressants detection NEGATIVE NEGATIVE Urine methadone detection by screening method NEGA TIVE NEGATIVE Urine oxycodone detection NEGATIVE NEGA TIVE Urine propoxyphene detection NEGATIVE N EGATIVE Capillary blood glucose measurement by g lucometer (mass/volume) - 05/02/18 16:05 Capillary blood glucose measurement by glucometer (mas s/volume) > mg/dL 70-110 Capillary blood glucose measurement by g lucometer (mass/volume) - 05/02/18 17:21 Capillary blood glucose measurement by glucometer (mas s/volume) 564 mg/dL 70-110 Arterial blood gas measurement - 9 17:29 Blood pCO2 23 mm[Hg] 35-45 Blood pO2 89 mm[Hg] 79-93 Arterial blood bicarbonate measurement (moles/volume) 11 mmol/L 23-27 Arterial blood base excess by calculation -15.2 mm ol/L -2.5-2.5 Arterial blood oxygen saturation measurement 96 % 94-100 * Inhaled oxygen flow rate ROOM AIR NRG Arterial blood pH measurement with patient temperature correction 7.27 7.37-7.43 Arterial blood carbon dioxide, total measurement (mole s/volume) 11.4 mmol/L 21.0-31.0 Body site RIGHT RADIAL NRG Assessment of wrist artery patency prior to arterial p uncture POSITIVE NRG Setting of ventilation mode NO NR G Measurement of body temperature 95.0 NRG Bacterial blood culture - 05/02/18 17:49 Bacterial blood culture NG NRG Complete blood count (CBC) with automate d white blood cell (WBC) differential - 05/25/18 23:31 Blood leukocytes automated count (number/volume) 6.9 10*3/uL 4.3-11.0 Blood erythrocytes automated count (number/volume) 2.40 10*6/uL 4.35-5.85 Venous blood hemoglobin measurement (mass/volume) 7.2 g/dL 13.3-17.7 Blood hematocrit (volume fraction) 23 % 40-54 Automated erythrocyte mean corpuscular volume 98 [ foz_us] 80-99 Automated erythrocyte mean corpuscular h emoglobin (mass per erythrocyte) 30 pg 25-34 Automated erythrocyte mean corpuscular h emoglobin concentration measurement (mass/volume) 31 g/dL 32-36 Automated erythrocyte distribution width ratio 16. 1 % 10.0- 14.5 Automated blood platelet count (count/volume) 128 10*3/uL 130-400 Automated blood platelet mean volume measurement 10.4 [foz_us] 7.4-10.4 Automated blood neutrophils/100 leukocytes 79 % 42-75 Automated blood lymphocytes/100 leukocytes 13 % 12-44 Blood monocytes/100 leukocytes 6 % 0-12 Automated blood eosinophils/100 leukocytes 2 % 0-10 Automated blood basophils/100 leukocytes 0 % 0-10 Blood neutrophils automated count (number/volume) 5.4 10*3 1.8-7.8 Blood lymphocytes automated count (number/volume) 0.9 10*3 1.0-4.0 Blood monocytes automated count (number/volume) 0. 4 10*3 0.0-1.0 Automated eosinophil count 0.1 10*3/uL 0 .0-0.3 Automated blood basophil count (count/volume) 0.0 10*3/uL 0.0-0.1 Automated reticulocyte percentage - 05/05 05/22 23:31 Blood reticulocytes count (number/volume) 103 10*9 /L 24-90 Blood reticulocytes/100 erythrocytes 4.28 % 0.50-2.40 Comprehensive metabolic panel - 05/25/18 23:31 Serum or plasma sodium measurement (moles/volume) 137 mmol/L 135-145 Serum or plasma potassium measurement (moles/volume) 4.3 mmol/L 3.6-5.0 Serum or plasma chloride measurement (moles/volume) 97 mmol/L 98-107 Carbon dioxide 30 mmol/L 21-32 Serum or plasma anion gap determination (moles/volume) 10 mmol/L 5-14 Serum or plasma urea nitrogen measurement (mass/volume ) 22 mg/dL 7-18 Serum or plasma creatinine measurement (mass/volume) 1.43 mg/dL 0.60-1.30 Serum or plasma urea nitrogen/creatinine mass ratio 15 NRG Serum or plasma creatinine measurement w ith calculation of estimated glomerular filtration rate 50 NRG Serum or plasma glucose measurement (mass/volume) 142 mg/dL 70-105 Serum or plasma calcium measurement (mass/volume) 8.4 mg/dL 8.5-10.1 Serum or plasma total bilirubin measurement (mass/volu me) 0.2 mg/dL 0.1-1.0 Serum or plasma alkaline phosphatase radha surement (enzymatic activity/volume) 92 U/L 40-136 Serum or plasma aspartate aminotransfera se measurement (enzymatic activity/volume) 89 U/L 5-34 Serum or plasma alanine aminotransferase measurement (enzymatic activity/volume) 71 U/L 0-55 Serum or plasma protein measurement (mass/volume) 5.3 g/dL 6.4-8.2 Serum or plasma albumin measurement (mass/volume) 3.0 g/dL 3.2-4.5 CALCIUM CORRECTED 9.2 mg/dL 8.5-10.1 PT panel in platelet poor plasma by coag ulation assay - 05/25/18 23:31 Prothrombin time (PT) in platelet poor plasma by coagu lation assay 14.2 s 12.2-14.7 INR in platelet poor plasma or blood by coagulation as say 1.1 0.8-1.4 Activated partial thromboplastin time (a PTT) in platelet poor plasma bycoagulation assay - 05/25/18 23:31 Activated partial thromboplastin time (a PTT) in platelet poor plasma bycoagulation assay 32 s 24-35 RED CELLS LEUKO REDUCED AS1 - 05/25/18 2 3:31 RED CELLS LEUKO REDUCED AS1 T RANSFUSED 05/26/18 0519 NRG Blood type T Indirect antibody screen pa josafat - 05/25/18 23:31 ABO+Rh group BP NRG Transfusion band number [id number] NRG Blood group antibody screen NEGATIVE NR G THYROID STIMULATING HORMONE - 05/25/18 2 3:31 THYROID STIMULATING HORMONE 13.57 u[iU]/mL 0.35-4.94 Serum iron and total iron binding capaci ty panel - 05/25/18 23:31 Serum or plasma iron measurement (mass/volume) 24 % 40-180 Total iron binding capacity and transferrin saturation measurement 17 % 15-50 Iron binding capacity [mass/volume] in serum or plasma 138 % 280-380 UIBC (unsaturated iron binding capacity) 114 % 55-450 Serum or plasma ferritin measurement (mass/volume) 1314.7 % 32.0-356.0 Capillary blood glucose measurement by g lucometer (mass/volume) - 05/26/18 07:08 Capillary blood glucose measurement by glucometer (mas s/volume) 208 mg/dL 70-110 Complete urinalysis with reflex to cultu re - 05/26/18 09:00 Urine color determination YELLOW NRG Urine clarity determination CLEAR NR G Urine pH measurement by test strip 6.5 5-9 Specific gravity of urine by test strip 1.010 1.016-1.022 Urine protein assay by test strip, semi-quantitative NEGATIVE NEGATIVE Urine glucose detection by automated test strip NE GATIVE NEGATIVE Erythrocytes detection in urine sediment by light micr oscopy NEGATIVE NEGATIVE Urine ketones detection by automated test strip NE GATIVE NEGATIVE Urine nitrite detection by test strip NEGATIVE NEGATIVE Urine total bilirubin detection by test strip NEGA TIVE NEGATIVE Urine urobilinogen measurement by automated test strip (mass/volume) NORMAL NORMAL Urine leukocyte esterase detection by dipstick NEG ATIVE NEGATIVE Automated urine sediment erythrocyte cou nt by microscopy (number/high power field) NONE NRG Automated urine sediment leukocyte count by microscopy (number/high power field) NONE NRG Bacteria detection in urine sediment by light microsco py NEGATIVE NRG Squamous epithelial cells detection in u rine sediment by light microscopy NONE NRG Crystals detection in urine sediment by light microsco py NONE NRG Casts detection in urine sediment by light microscopy NONE NRG Mucus detection in urine sediment by light microscopy NEGATIVE NRG Complete urinalysis with reflex to culture NO NRG Complete blood count (CBC) with automate d white blood cell (WBC) differential - 05/26/18 09:05 Blood leukocytes automated count (number/volume) 6.3 10*3/uL 4.3-11.0 Blood erythrocytes automated count (number/volume) 3.26 10*6/uL 4.35-5.85 Venous blood hemoglobin measurement (mass/volume) 10.2 g/dL 13.3-17.7 Blood hematocrit (volume fraction) 30 % 40-54 Automated erythrocyte mean corpuscular volume 93 [ foz_us] 80-99 Automated erythrocyte mean corpuscular h emoglobin (mass per erythrocyte) 31 pg 25-34 Automated erythrocyte mean corpuscular h emoglobin concentration measurement (mass/volume) 34 g/dL 32-36 Automated erythrocyte distribution width ratio 17. 0 % 10.0- 14.5 Automated blood platelet count (count/volume) 121 10*3/uL 130-400 Automated blood platelet mean volume measurement 11.0 [foz_us] 7.4-10.4 Automated blood neutrophils/100 leukocytes 80 % 42-75 Automated blood lymphocytes/100 leukocytes 13 % 12-44 Blood monocytes/100 leukocytes 6 % 0-12 Automated blood eosinophils/100 leukocytes 1 % 0-10 Automated blood basophils/100 leukocytes 0 % 0-10 Blood neutrophils automated count (number/volume) 5.0 10*3 1.8-7.8 Blood lymphocytes automated count (number/volume) 0.8 10*3 1.0-4.0 Blood monocytes automated count (number/volume) 0. 4 10*3 0.0-1.0 Automated eosinophil count 0.0 10*3/uL 0 .0-0.3 Automated blood basophil count (count/volume) 0.0 10*3/uL 0.0-0.1 Comprehensive metabolic panel - 05/26/18 09:05 Serum or plasma sodium measurement (moles/volume) 136 mmol/L 135-145 Serum or plasma potassium measurement (moles/volume) 4.3 mmol/L 3.6-5.0 Serum or plasma chloride measurement (moles/volume) 98 mmol/L 98-107 Carbon dioxide 27 mmol/L 21-32 Serum or plasma anion gap determination (moles/volume) 11 mmol/L 5-14 Serum or plasma urea nitrogen measurement (mass/volume ) 23 mg/dL 7-18 Serum or plasma creatinine measurement (mass/volume) 1.39 mg/dL 0.60-1.30 Serum or plasma urea nitrogen/creatinine mass ratio 17 NRG Serum or plasma creatinine measurement w ith calculation of estimated glomerular filtration rate 51 NRG Serum or plasma glucose measurement (mass/volume) 210 mg/dL 70-105 Serum or plasma calcium measurement (mass/volume) 8.4 mg/dL 8.5-10.1 Serum or plasma total bilirubin measurement (mass/volu me) 0.5 mg/dL 0.1-1.0 Serum or plasma alkaline phosphatase radha surement (enzymatic activity/volume) 147 U/L 40-136 Serum or plasma aspartate aminotransfera se measurement (enzymatic activity/volume) 154 U/L 5-34 Serum or plasma alanine aminotransferase measurement (enzymatic activity/volume) 146 U/L 0-55 Serum or plasma protein measurement (mass/volume) 5.6 g/dL 6.4-8.2 Serum or plasma albumin measurement (mass/volume) 3.1 g/dL 3.2-4.5 CALCIUM CORRECTED 9.1 mg/dL 8.5-10.1 Capillary blood glucose measurement by g lucometer (mass/volume) - 05/26/18 11:23 Capillary blood glucose measurement by glucometer (mas s/volume) 186 mg/dL 70-110 Complete blood count (CBC) with automate d white blood cell (WBC) differential - 07/01/18 10:00 Blood leukocytes automated count (number/volume) 9.1 10*3/uL 4.3-11.0 Blood erythrocytes automated count (number/volume) 3.41 10*6/uL 4.35-5.85 Venous blood hemoglobin measurement (mass/volume) 10.2 g/dL 13.3-17.7 Blood hematocrit (volume fraction) 32 % 40-54 Automated erythrocyte mean corpuscular volume 94 [ foz_us] 80-99 Automated erythrocyte mean corpuscular h emoglobin (mass per erythrocyte) 30 pg 25-34 Automated erythrocyte mean corpuscular h emoglobin concentration measurement (mass/volume) 32 g/dL 32-36 Automated erythrocyte distribution width ratio 15. 1 % 10.0- 14.5 Automated blood platelet count (count/volume) 130 10*3/uL 130-400 Automated blood platelet mean volume measurement 10.8 [foz_us] 7.4-10.4 Automated blood neutrophils/100 leukocytes 86 % 42-75 Automated blood lymphocytes/100 leukocytes 6 % 12-44 Blood monocytes/100 leukocytes 7 % 0-12 Automated blood eosinophils/100 leukocytes 1 % 0-10 Automated blood basophils/100 leukocytes 0 % 0-10 Blood neutrophils automated count (number/volume) 7.8 10*3 1.8-7.8 Blood lymphocytes automated count (number/volume) 0.5 10*3 1.0-4.0 Blood monocytes automated count (number/volume) 0. 6 10*3 0.0-1.0 Automated eosinophil count 0.1 10*3/uL 0 .0-0.3 Automated blood basophil count (count/volume) 0.0 10*3/uL 0.0-0.1 Blood lactic acid measurement (moles/vol ume) - 07/01/18 10:00 Blood lactic acid measurement (moles/volume) 0.86 mmol/L 0.50-2.00 Comprehensive metabolic panel - 07/01/18 10:00 Serum or plasma sodium measurement (moles/volume) 139 mmol/L 135-145 Serum or plasma potassium measurement (moles/volume) 4.6 mmol/L 3.6-5.0 Serum or plasma chloride measurement (moles/volume) 97 mmol/L 98-107 Carbon dioxide 29 mmol/L 21-32 Serum or plasma anion gap determination (moles/volume) 13 mmol/L 5-14 Serum or plasma urea nitrogen measurement (mass/volume ) 31 mg/dL 7-18 Serum or plasma creatinine measurement (mass/volume) 1.53 mg/dL 0.60-1.30 Serum or plasma urea nitrogen/creatinine mass ratio 20 NRG Serum or plasma creatinine measurement w ith calculation of estimated glomerular filtration rate 46 NRG Serum or plasma glucose measurement (mass/volume) 256 mg/dL 70-105 Serum or plasma calcium measurement (mass/volume) 8.7 mg/dL 8.5-10.1 Serum or plasma total bilirubin measurement (mass/volu me) 0.5 mg/dL 0.1-1.0 Serum or plasma alkaline phosphatase rahda surement (enzymatic activity/volume) 77 U/L 40-136 Serum or plasma aspartate aminotransfera se measurement (enzymatic activity/volume) 30 U/L 5-34 Serum or plasma alanine aminotransferase measurement (enzymatic activity/volume) 39 U/L 0-55 Serum or plasma protein measurement (mass/volume) 6.0 g/dL 6.4-8.2 Serum or plasma albumin measurement (mass/volume) 3.5 g/dL 3.2-4.5 CALCIUM CORRECTED 9.1 mg/dL 8.5-10.1 Serum or plasma troponin i.cardiac measu rement (mass/volume) - 07/01/18 10:00 Serum or plasma troponin i.cardiac measurement (mass/v olume) 0.094 ng/mL <0.028 Serum or plasma C reactive protein measu rement (mass/volume) - 07/01/18 10:00 Serum or plasma C reactive protein measurement (mass/v olume) 4.92 mg/dL 0.00-0.50 Blood manual differential performed dete ction - 07/01/18 10:00 Blood monocytes/100 leukocytes 6 % NRG Manual blood segmented neutrophils/100 leukocytes 89 % NRG Manual blood lymphocytes/100 leukocytes 5 % NRG Blood toxic granules detection by light microscopy 2+ NRG Blood hypersegmented neutrophils detection by light mi croscopy SLIGHT NRG Serum or plasma lithium measurement (mol es/volume) - 07/01/18 10:00 BNP level 1622.3 pg/mL <100.0 PT panel in platelet poor plasma by coag ulation assay - 07/01/18 10:00 Prothrombin time (PT) in platelet poor plasma by coagu lation assay 14.8 s 12.2-14.7 INR in platelet poor plasma or blood by coagulation as say 1.1 0.8-1.4 Activated partial thromboplastin time (a PTT) in platelet poor plasma bycoagulation assay - 07/01/18 10:00 Activated partial thromboplastin time (a PTT) in platelet poor plasma bycoagulation assay 32 s 24-35 Fibrin D-dimer FEU measurement in platel et poor plasma (mass/volume) - 07/01/18 10:00 Fibrin D-dimer FEU measurement in platelet poor plasma (mass/volume) 1.04 ug/mL 0.00-0.49 Bacterial blood culture - 07/01/18 10:00 Bacterial blood culture NG NRG Bacterial blood culture - 07/01/18 10:23 Bacterial blood culture [facility] Influenza virus A and B antigen detectio n - 07/01/18 11:52 FLU RESULT NEGATIVE FOR INFLUENZA A AND B ANTIGENS BY [facility] Serum or plasma troponin i.cardiac measu rement (mass/volume) - 07/01/18 16:27 Serum or plasma troponin i.cardiac measurement (mass/v olume) 0.071 ng/mL <0.028 Capillary blood glucose measurement by g lucometer (mass/volume) - 07/01/18 18:01 Capillary blood glucose measurement by glucometer (mas s/volume) 310 mg/dL 70-110 Serum or plasma troponin i.cardiac measu rement (mass/volume) - 07/01/18 22:03 Serum or plasma troponin i.cardiac measurement (mass/v olume) 0.048 ng/mL <0.028 Capillary blood glucose measurement by g lucometer (mass/volume) - 07/01/18 23:59 Capillary blood glucose measurement by glucometer (mas s/volume) 327 mg/dL 70-110 Complete blood count (CBC) with automate d white blood cell (WBC) differential - 07/02/18 04:10 Blood leukocytes automated count (number/volume) 7.5 10*3/uL 4.3-11.0 Blood erythrocytes automated count (number/volume) 3.34 10*6/uL 4.35-5.85 Venous blood hemoglobin measurement (mass/volume) 10.1 g/dL 13.3-17.7 Blood hematocrit (volume fraction) 31 % 40-54 Automated erythrocyte mean corpuscular volume 93 [ foz_us] 80-99 Automated erythrocyte mean corpuscular h emoglobin (mass per erythrocyte) 30 pg 25-34 Automated erythrocyte mean corpuscular h emoglobin concentration measurement (mass/volume) 33 g/dL 32-36 Automated erythrocyte distribution width ratio 15. 4 % 10.0- 14.5 Automated blood platelet count (count/volume) 138 10*3/uL 130-400 Automated blood platelet mean volume measurement 11.1 [foz_us] 7.4-10.4 Automated blood neutrophils/100 leukocytes 81 % 42-75 Automated blood lymphocytes/100 leukocytes 9 % 12-44 Blood monocytes/100 leukocytes 8 % 0-12 Automated blood eosinophils/100 leukocytes 2 % 0-10 Automated blood basophils/100 leukocytes 0 % 0-10 Blood neutrophils automated count (number/volume) 6.1 10*3 1.8-7.8 Blood lymphocytes automated count (number/volume) 0.7 10*3 1.0-4.0 Blood monocytes automated count (number/volume) 0. 6 10*3 0.0-1.0 Automated eosinophil count 0.1 10*3/uL 0 .0-0.3 Automated blood basophil count (count/volume) 0.0 10*3/uL 0.0-0.1 Whole blood basic metabolic panel - 04/21 04:10 Serum or plasma sodium measurement (moles/volume) 136 mmol/L 135-145 Serum or plasma potassium measurement (moles/volume) 3.8 mmol/L 3.6-5.0 Serum or plasma chloride measurement (moles/volume) 94 mmol/L 98-107 Carbon dioxide 30 mmol/L 21-32 Serum or plasma anion gap determination (moles/volume) 12 mmol/L 5-14 Serum or plasma urea nitrogen measurement (mass/volume ) 31 mg/dL 7-18 Serum or plasma creatinine measurement (mass/volume) 1.49 mg/dL 0.60-1.30 Serum or plasma urea nitrogen/creatinine mass ratio 21 NRG Serum or plasma creatinine measurement w ith calculation of estimated glomerular filtration rate 47 NRG Serum or plasma glucose measurement (mass/volume) 270 mg/dL 70-105 Serum or plasma calcium measurement (mass/volume) 9.1 mg/dL 8.5-10.1 Capillary blood glucose measurement by g lucometer (mass/volume) - 07/02/18 12:13 Capillary blood glucose measurement by glucometer (mas s/volume) 364 mg/dL 70-110 Capillary blood glucose measurement by g lucometer (mass/volume) - 07/02/18 18:05 Capillary blood glucose measurement by glucometer (mas s/volume) 278 mg/dL 70-110 Capillary blood glucose measurement by g lucometer (mass/volume) - 07/03/18 00:12 Capillary blood glucose measurement by glucometer (mas s/volume) 162 mg/dL 70-110 Capillary blood glucose measurement by g lucometer (mass/volume) - 07/03/18 01:57 Capillary blood glucose measurement by glucometer (mas s/volume) 204 mg/dL 70-110 Automated blood complete blood count (he mogram) panel - 07/03/18 04:40 Blood leukocytes automated count (number/volume) 5.7 10*3/uL 4.3-11.0 Blood erythrocytes automated count (number/volume) 3.29 10*6/uL 4.35-5.85 Venous blood hemoglobin measurement (mass/volume) 9.9 g/dL 13.3-17.7 Blood hematocrit (volume fraction) 31 % 40-54 Automated erythrocyte mean corpuscular volume 93 [ foz_us] 80-99 Automated erythrocyte mean corpuscular h emoglobin (mass per erythrocyte) 30 pg 25-34 Automated erythrocyte mean corpuscular h emoglobin concentration measurement (mass/volume) 32 g/dL 32-36 Automated erythrocyte distribution width ratio 15. 0 % 10.0- 14.5 Automated blood platelet count (count/volume) 138 10*3/uL 130-400 Automated blood platelet mean volume measurement 10.6 [foz_us] 7.4-10.4 Whole blood basic metabolic panel - 05/22 04:45 Serum or plasma sodium measurement (moles/volume) 140 mmol/L 135-145 Serum or plasma potassium measurement (moles/volume) 3.9 mmol/L 3.6-5.0 Serum or plasma chloride measurement (moles/volume) 98 mmol/L 98-107 Carbon dioxide 32 mmol/L 21-32 Serum or plasma anion gap determination (moles/volume) 10 mmol/L 5-14 Serum or plasma urea nitrogen measurement (mass/volume ) 35 mg/dL 7-18 Serum or plasma creatinine measurement (mass/volume) 1.38 mg/dL 0.60-1.30 Serum or plasma urea nitrogen/creatinine mass ratio 25 NRG Serum or plasma creatinine measurement w ith calculation of estimated glomerular filtration rate 52 NRG Serum or plasma glucose measurement (mass/volume) 174 mg/dL 70-105 Serum or plasma calcium measurement (mass/volume) 8.8 mg/dL 8.5-10.1 Magnesium - 07/03/18 04:45 Magnesium 2.6 mg/dL 1.8-2.4 Serum or plasma lithium measurement (mol es/volume) - 07/03/18 04:45 BNP level 1094.3 pg/mL <100.0 Capillary blood glucose measurement by g lucometer (mass/volume) - 07/03/18 13:33 Capillary blood glucose measurement by glucometer (mas s/volume) 213 mg/dL 70-110 Capillary blood glucose measurement by g lucometer (mass/volume) - 07/03/18 18:22 Capillary blood glucose measurement by glucometer (mas s/volume) 408 mg/dL 70-110 Capillary blood glucose measurement by g lucometer (mass/volume) - 07/04/18 00:16 Capillary blood glucose measurement by glucometer (mas s/volume) 352 mg/dL 70-110 Capillary blood glucose measurement by g lucometer (mass/volume) - 07/04/18 05:43 Capillary blood glucose measurement by glucometer (mas s/volume) 295 mg/dL 70-110 Complete blood count (CBC) with automate d white blood cell (WBC) differential - 07/04/18 09:42 Blood leukocytes automated count (number/volume) 5.0 10*3/uL 4.3-11.0 Blood erythrocytes automated count (number/volume) 3.30 10*6/uL 4.35-5.85 Venous blood hemoglobin measurement (mass/volume) 9.9 g/dL 13.3-17.7 Blood hematocrit (volume fraction) 31 % 40-54 Automated erythrocyte mean corpuscular volume 93 [ foz_us] 80-99 Automated erythrocyte mean corpuscular h emoglobin (mass per erythrocyte) 30 pg 25-34 Automated erythrocyte mean corpuscular h emoglobin concentration measurement (mass/volume) 32 g/dL 32-36 Automated erythrocyte distribution width ratio 15. 1 % 10.0- 14.5 Automated blood platelet count (count/volume) 147 10*3/uL 130-400 Automated blood platelet mean volume measurement 10.0 [foz_us] 7.4-10.4 Automated blood neutrophils/100 leukocytes 70 % 42-75 Automated blood lymphocytes/100 leukocytes 18 % 12-44 Blood monocytes/100 leukocytes 8 % 0-12 Automated blood eosinophils/100 leukocytes 4 % 0-10 Automated blood basophils/100 leukocytes 1 % 0-10 Blood neutrophils automated count (number/volume) 3.5 10*3 1.8-7.8 Blood lymphocytes automated count (number/volume) 0.9 10*3 1.0-4.0 Blood monocytes automated count (number/volume) 0. 4 10*3 0.0-1.0 Automated eosinophil count 0.2 10*3/uL 0 .0-0.3 Automated blood basophil count (count/volume) 0.0 10*3/uL 0.0-0.1 Comprehensive metabolic panel - 07/04/18 09:42 Serum or plasma sodium measurement (moles/volume) 140 mmol/L 135-145 Serum or plasma potassium measurement (moles/volume) 4.0 mmol/L 3.6-5.0 Serum or plasma chloride measurement (moles/volume) 98 mmol/L 98-107 Carbon dioxide 34 mmol/L 21-32 Serum or plasma anion gap determination (moles/volume) 8 mmol/L 5-14 Serum or plasma urea nitrogen measurement (mass/volume ) 32 mg/dL 7-18 Serum or plasma creatinine measurement (mass/volume) 1.44 mg/dL 0.60-1.30 Serum or plasma urea nitrogen/creatinine mass ratio 22 NRG Serum or plasma creatinine measurement w ith calculation of estimated glomerular filtration rate 49 NRG Serum or plasma glucose measurement (mass/volume) 209 mg/dL 70-105 Serum or plasma calcium measurement (mass/volume) 9.2 mg/dL 8.5-10.1 Serum or plasma total bilirubin measurement (mass/volu me) 0.4 mg/dL 0.1-1.0 Serum or plasma alkaline phosphatase radha surement (enzymatic activity/volume) 75 U/L 40-136 Serum or plasma aspartate aminotransfera se measurement (enzymatic activity/volume) 18 U/L 5-34 Serum or plasma alanine aminotransferase measurement (enzymatic activity/volume) 29 U/L 0-55 Serum or plasma protein measurement (mass/volume) 5.8 g/dL 6.4-8.2 Serum or plasma albumin measurement (mass/volume) 3.3 g/dL 3.2-4.5 CALCIUM CORRECTED 9.8 mg/dL 8.5-10.1 Capillary blood glucose measurement by g lucometer (mass/volume) - 07/04/18 11:12 Capillary blood glucose measurement by glucometer (mas s/volume) 236 mg/dL 70-110 Complete blood count (CBC) with automate d white blood cell (WBC) differential - 07/09/18 10:49 Blood leukocytes automated count (number/volume) 5.8 10*3/uL 4.3-11.0 Blood erythrocytes automated count (number/volume) 3.59 10*6/uL 4.35-5.85 Venous blood hemoglobin measurement (mass/volume) 10.6 g/dL 13.3-17.7 Blood hematocrit (volume fraction) 33 % 40-54 Automated erythrocyte mean corpuscular volume 93 [ foz_us] 80-99 Automated erythrocyte mean corpuscular h emoglobin (mass per erythrocyte) 30 pg 25-34 Automated erythrocyte mean corpuscular h emoglobin concentration measurement (mass/volume) 32 g/dL 32-36 Automated erythrocyte distribution width ratio 15. 2 % 10.0- 14.5 Automated blood platelet count (count/volume) 165 10*3/uL 130-400 Automated blood platelet mean volume measurement 10.5 [foz_us] 7.4-10.4 Automated blood neutrophils/100 leukocytes 80 % 42-75 Automated blood lymphocytes/100 leukocytes 9 % 12-44 Blood monocytes/100 leukocytes 8 % 0-12 Automated blood eosinophils/100 leukocytes 3 % 0-10 Automated blood basophils/100 leukocytes 0 % 0-10 Blood neutrophils automated count (number/volume) 4.6 10*3 1.8-7.8 Blood lymphocytes automated count (number/volume) 0.5 10*3 1.0-4.0 Blood monocytes automated count (number/volume) 0. 5 10*3 0.0-1.0 Automated eosinophil count 0.2 10*3/uL 0 .0-0.3 Automated blood basophil count (count/volume) 0.0 10*3/uL 0.0-0.1 Influenza virus A and B antigen detectio n - 07/09/18 10:49 FLU RESULT NEGATIVE FOR INFLUENZA A AND B ANTIGENS BY [facility] Comprehensive metabolic panel - 07/09/18 10:49 Serum or plasma sodium measurement (moles/volume) 141 mmol/L 135-145 Serum or plasma potassium measurement (moles/volume) 4.0 mmol/L 3.6-5.0 Serum or plasma chloride measurement (moles/volume) 99 mmol/L 98-107 Carbon dioxide 34 mmol/L 21-32 Serum or plasma anion gap determination (moles/volume) 8 mmol/L 5-14 Serum or plasma urea nitrogen measurement (mass/volume ) 19 mg/dL 7-18 Serum or plasma creatinine measurement (mass/volume) 1.46 mg/dL 0.60-1.30 Serum or plasma urea nitrogen/creatinine mass ratio 13 NRG Serum or plasma creatinine measurement w ith calculation of estimated glomerular filtration rate 49 NRG Serum or plasma glucose measurement (mass/volume) 259 mg/dL 70-105 Serum or plasma calcium measurement (mass/volume) 9.3 mg/dL 8.5-10.1 Serum or plasma total bilirubin measurement (mass/volu me) 0.4 mg/dL 0.1-1.0 Serum or plasma alkaline phosphatase radha surement (enzymatic activity/volume) 91 U/L 40-136 Serum or plasma aspartate aminotransfera se measurement (enzymatic activity/volume) 35 U/L 5-34 Serum or plasma alanine aminotransferase measurement (enzymatic activity/volume) 91 U/L 0-55 Serum or plasma protein measurement (mass/volume) 6.3 g/dL 6.4-8.2 Serum or plasma albumin measurement (mass/volume) 3.7 g/dL 3.2-4.5 CALCIUM CORRECTED 9.5 mg/dL 8.5-10.1 Serum or plasma C reactive protein measu rement (mass/volume) - 07/09/18 10:49 Serum or plasma C reactive protein measurement (mass/v olume) 1.81 mg/dL 0.00-0.50 Serum or plasma lithium measurement (mol es/volume) - 07/09/18 10:49 BNP level 897.8 pg/mL <100.0 Capillary blood glucose measurement by g lucometer (mass/volume) - 07/09/18 10:58 Capillary blood glucose measurement by glucometer (mas s/volume) 263 mg/dL 70-110 Complete blood count (CBC) with automate d white blood cell (WBC) differential - 09/16/19 13:45 Blood leukocytes automated count (number/volume) 6.7 10*3/uL 4.3-11.0 Blood erythrocytes automated count (number/volume) 4.07 10*6/uL 4.35-5.85 Venous blood hemoglobin measurement (mass/volume) 12.3 g/dL 13.3-17.7 Blood hematocrit (volume fraction) 36 % 40-54 Automated erythrocyte mean corpuscular volume 88 [ foz_us] 80-99 Automated erythrocyte mean corpuscular h emoglobin (mass per erythrocyte) 30 pg 25-34 Automated erythrocyte mean corpuscular h emoglobin concentration measurement (mass/volume) 35 g/dL 32-36 Automated erythrocyte distribution width ratio 13. 5 % 10.0- 14.5 Automated blood platelet count (count/volume) 129 10*3/uL 130-400 Automated blood platelet mean volume measurement 10.6 [foz_us] 7.4-10.4 Automated blood neutrophils/100 leukocytes 73 % 42-75 Automated blood lymphocytes/100 leukocytes 17 % 12-44 Blood monocytes/100 leukocytes 8 % 0-12 Automated blood eosinophils/100 leukocytes 2 % 0-10 Automated blood basophils/100 leukocytes 0 % 0-10 Blood neutrophils automated count (number/volume) 4.9 10*3 1.8-7.8 Blood lymphocytes automated count (number/volume) 1.2 10*3 1.0-4.0 Blood monocytes automated count (number/volume) 0. 5 10*3 0.0-1.0 Automated eosinophil count 0.1 10*3/uL 0 .0-0.3 Automated blood basophil count (count/volume) 0.0 10*3/uL 0.0-0.1 Erythrocyte sedimentation rate by melani gren method - 09/16/19 13:45 Erythrocyte sedimentation rate by westergren method 8 mm 0- 30 Comprehensive metabolic panel - 09/16/19 13:45 Serum or plasma sodium measurement (moles/volume) 140 mmol/L 135-145 Serum or plasma potassium measurement (moles/volume) 4.3 mmol/L 3.6-5.0 Serum or plasma chloride measurement (moles/volume) 101 mmol/L 98-107 Carbon dioxide 29 mmol/L 21-32 Serum or plasma anion gap determination (moles/volume) 10 mmol/L 5-14 Serum or plasma urea nitrogen measurement (mass/volume ) 27 mg/dL 7-18 Serum or plasma creatinine measurement (mass/volume) 1.64 mg/dL 0.60-1.30 Serum or plasma urea nitrogen/creatinine mass ratio 16 NRG Serum or plasma creatinine measurement w ith calculation of estimated glomerular filtration rate 42 NRG Serum or plasma glucose measurement (mass/volume) 167 mg/dL 70-105 Serum or plasma calcium measurement (mass/volume) 9.2 mg/dL 8.5-10.1 Serum or plasma total bilirubin measurement (mass/volu me) 0.2 mg/dL 0.1-1.0 Serum or plasma alkaline phosphatase radha surement (enzymatic activity/volume) 90 U/L 40-136 Serum or plasma aspartate aminotransfera se measurement (enzymatic activity/volume) 22 U/L 5-34 Serum or plasma alanine aminotransferase measurement (enzymatic activity/volume) 16 U/L 0-55 Serum or plasma protein measurement (mass/volume) 6.9 g/dL 6.4-8.2 Serum or plasma albumin measurement (mass/volume) 4.0 g/dL 3.2-4.5 CALCIUM CORRECTED 9.2 mg/dL 8.5-10.1 Serum or plasma C reactive protein measu rement (mass/volume) - 09/16/19 13:45 Serum or plasma C reactive protein measurement (mass/v olume) 0.23 mg/dL 0.00-0.50 Encounters ACCT No. Visit Date/Time Discharge Status Pt. Type Provider Facility Loc./Unit Complaint [id number] 09/16/2019 13:17:00 15:26:00 DIS Emergency JAMIE VELAZQUEZ APRN [facility] ER R LEG PAIN [id number] 03/04/2019 14:48:00 00:01:00 DIS Outpatient LIZY WHITNEY V [facility] ONC [id number] 07/09/2018 12:15:00 23:59:59 CLS Outpatient ORA PAYAN, MAHESH Fernandez [facility] CARD CHF [id number] 07/09/2018 09:54:00 12:34:00 DIS Emergency PADDY PAYAN, VALENTINE Fernandez [facility] ER COUGH;UPPER CHEST PRESS URE [id number] 07/04/2018 10:03:00 23:59:59 CLS Preadmit DUYEN PAYAN, SKYLAR Plascencia [facility] REHAB GENERAL WEAKNESS [id number] 07/01/2018 13:40:00 17:15:00 DIS Inpatient SONIA PAYAN, RADHA Glass [facility] 4TH CHF EXACERBATION WITH H YPOXIA [id number] 05/25/2018 22:45:00 019 10:41:00 DIS Inpatient HERMILO PAYAN, ARSLAN Glass [facility] ICU ANEMIA [id number] 02/13/2018 13:18:00 019 00:01:00 DIS Outpatient LIZY WHITNEY [facility] ONC [id number] 05/13/2018 01:52:00 019 02:06:00 DIS Emergency ELMER PAYAN, OWEN Negrete [facility] ER URINE RETENTION 24 HRS- CATHETER PLACED [id number] 05/02/2018 14:34:00 019 18:29:00 DIS Emergency REGINALD PAYAN, ANANYA Cobb [facility] ER AMS [id number] 08/09/2017 14:22:00 018 23:59:59 CLS Outpatient DUYEN PAYAN, SKYLAR Plascencia [facility] LAB [id number] 08/09/2017 12:47:00 018 23:59:59 CLS Outpatient JOSÉ PAYAN, EDWIN Roca [facility] ONC [id number] 04/19/2017 07:04:00 018 23:59:59 CLS Outpatient GRACE CURIEL [facility] LAB D61.818 D47.2 N18.3 [id number] 04/19/2017 06:58:00 018 23:59:59 CLS Outpatient JT FIGUEROA MD [facility] LAB E10.8 E03.4 [id number] 12/15/2016 12:39:00 017 00:01:00 DIS Outpatient LIZY WHITNEY [facility] ONC [id number] 12/08/2016 09:30:00 017 23:59:59 CLS Outpatient LIZY WHITNEY [facility] RAD M84.363A M84.371A [id number] 11/20/2016 07:47:00 017 10:52:00 DIS Emergency BROOKE GRACE [facility] ER VOMITING [id number] 07/21/2016 12:23:00 017 00:01:00 DIS Outpatient LIZY WHITNEY V [facility] ONC [id number] 10/17/2016 12:12:00 017 16:00:00 DIS Outpatient ROGER YBARRA MD [facility] WOUNDCARE [id number] 09/29/2016 12:26:00 017 14:52:00 DIS Emergency JAMIE VELAZQUEZ APRN [facility] ER BLISTERING WITH NEW PRO THETIC LEG RT//DIABETIC [id number] 09/27/2016 12:50:00 23:59:59 CLS Outpatient GRACE CURIEL 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 ADVISOR-C [facility] LAB D61.818.D47.2,E44.1,E87.3,E78.5,N25.81,E87.5,D63.1 [id number] 09/19/2016 08:54:00 23:59:59 CLS Outpatient JT FIGUEROA MD [facility] LAB L10.8 E03.4 [id number] 04/14/2016 14:10:00 17:35:00 DIS Inpatient CANDY PAYAN, RADHA Pillai [facility] IRF RIGHT BKA [id number] 04/07/2016 13:29:00 23:59:59 CLS Outpatient FROILAN RAINER GEORGE F [facility] LAB DISPLACED TRIMA LLEOLAR FX PVD [id number] 03/16/2016 07:54:00 23:59:59 CLS Outpatient GRACE CURIEL MANUFACTURING ADVISOR-C [facility] LAB PANCYTOPENIA,ALKALOSIS,HYPERPOTASSEMIA [id number] 02/14/2016 07:16:00 09:32:00 DIS Emergency BROOKE DOGRACE [facility] ER R FOOT INJ [id number] 02/04/2016 10:13:00 016 12:18:00 DIS Emergency RYAN PAYAN, HOLLI Ashton [facility] ER FALL/RT FOOT PAIN [id number] 07/16/2015 14:44:00 016 00:01:00 DIS Outpatient LIZY WHITNEY [facility] ONC [id number] 08/28/2015 07:28:00 016 23:59:59 CLS Outpatient GRACE CURIEL MANUFACTURING ADVISOR-C [facility] LAB PANCYTOPENIA,ALKALOSIS [id number] 06/08/2015 08:47:00 23:59:59 CLS Outpatient JT FIGUEROA MD [facility] LAB THYROID [id number] 01/05/2015 14:08:00 016 00:01:00 DIS Outpatient LIZY WHITNEY [facility] ONC [id number] 03/27/2015 10:59:00 12:08:00 DIS Emergency REGINALD PAYAN, ANANYA Cobb [facility] ER INFECTION ON KN UCKLE OF LT HAND [id number] 01/13/2015 08:18:00 23:59:59 CLS Outpatient GRACE CURIEL MANUFACTURING ADVISOR-C [facility] LAB ALKALOSIS,HLP,HYPERPARA THYROIDISM RENAL,CKD III [id number] 01/05/2015 13:47:00 23:59:59 CLS Outpatient HARRY SAMANO MENTAL MEASUREMENTS TEACHER [facility] ONC [id number] 12/29/2014 15:00:00 23:59:59 CLS Outpatient LIZY WHITNEY [facility] ONC [id number] 12/16/2014 07:40:00 23:59:59 CLS Outpatient JT FIGUEROA MD [facility] LAB DM TYPE I, [id number] 06/26/2014 12:49:00 015 00:01:00 DIS Outpatient LIZY WHITNEY V [facility] ONC [id number] 12/26/2013 12:56:00 014 00:01:00 DIS Outpatient LIZY WHITNEY [facility] ONC [id number] 12/26/2013 12:56:00 014 23:59:59 CLS Outpatient HARRY SAMANO [facility] ONC [id number] 11/28/2013 08:33:00 014 23:59:59 CLS Outpatient GRACE CURIEL MANUFACTURING ADVISOR-C [facility] LAB ALKALOSIS,HYPERLIPIDEMI A,ANEMIA CHRONIC KIDNEY [id number] 06/27/2013 12:48:00 014 00:01:00 DIS Outpatient LIZY WHITNEY [facility] ONC [id number] 2013 15:08:00 014 00:01:00 DIS Outpatient LIZY WHITNEY [facility] ONC [id number] 06/07/2013 07:59:00 014 23:59:59 CLS Outpatient GRACE CURIEL MANUFACTURING ADVISOROlimpiaC [facility] LAB HYPERLIPIDEMIA,ANEMIA [id number] 06/07/2013 07:53:00 014 23:59:59 CLS Outpatient JT FIGUEROA MD [facility] LAB HYPOTHYROIDISM,DIABETE S [id number] 11/30/2012 09:25:00 013 23:59:59 CLS Outpatient GRACE CURIEL MANUFACTURING ADVISOR-C [facility] LAB HLP,HYPERPARATHYROIDISM,ACIDOSIS,HYPERPOTASSE [id number] 11/20/2012 13:38:00 013 16:17:00 DIS Emergency JAMIE VELAZQUEZ APRN [facility] ER FALL [id number] 09/20/2012 14:17:00 23:59:59 CLS Outpatient HARRY SAMANO [facility] ONC OV [id number] 07/10/2014 18:18:00 Document Registration [id number] 05/29/2014 08:22:00 Document Registration [id number] 05/29/2014 08:16:00 Document Registration [id number] 05/31/2012 09:04:00 Document Registration [id number] 05/31/2012 08:58:00 Document Registration [id number] 05/03/2012 19:13:00 Document Registration [id number] 04/28/2012 13:10:00 Document Registration [id number] 03/09/2012 13:02:00 Document Registration [id number] 01/25/2011 06:41:00 Document Registration [id number] 12/15/2010 05:54:00 Document Registration [id number] 10/15/2010 07:14:00 Document Registration [id number] 09/29/2010 07:15:00 Document Registration [id number] 09/29/2010 07:08:00 Document Registration [id number] 08/25/2010 09:54:00 Document Registration [id number] 07/27/2010 14:39:00 Document Registration [id number] 03/01/2010 09:52:00 Document Registration [id number] 02/23/2010 11:10:00 Document Registration
== END 2019-09-16 15:26 | disposition home or self-care (01) ==
LOC: EDUNIT# 13:16 → ER 13:17
DX: T87.89 Other complications of amputation stump (principal); I10 Essential (primary) hypertension; I25.2 Old myocardial infarction; E78.00 Pure hypercholesterolemia, unspecified; I25.10 Atherosclerotic heart disease of native coronary artery without angina pectoris; E11.40 Type 2 diabetes mellitus with diabetic neuropathy, unspecified; E03.9 Hypothyroidism, unspecified; F41.9 Anxiety disorder, unspecified; F32.9 Major depressive disorder, single episode, unspecified; Z79.82 Long term (current) use of aspirin; Z79.4 Long term (current) use of insulin; Z95.1 Presence of aortocoronary bypass graft; Z79.890 Hormone replacement therapy; Z82.49 Family history of ischemic heart disease and other diseases of the circulatory system
CPT/HCPCS: 36415; 73590; 80053; 85025; 85652; 86141

== ENCOUNTER → 2020-03-09 | Outpatient (CLI) | payer MEDICARE ==
[~2020-03-09] MED LIST changes: +ASPI-1238 PO; -ASPI-983 PO; +AZIT500T PO; +BENZ100C18 PO; +D-ME473S11 PO; +HYDR-3870 PO; -PANT40TA3 PO; +PANT40TA52 PO
[2020-03-09 15:24] LABS: BASOPHILS % (AUTO) 0 % (0-10); EOSINOPHILS # (AUTO) 0.2 10^3/uL (0.0-0.3); EOSINOPHILS % (AUTO) 2 % (0-10); HEMATOCRIT 37 % (40-54); HEMOGLOBIN 12.6 g/dL (13.3-17.7); LYMPHOCYTES # (AUTO) 1.2 10^3/uL (1.0-4.0); LYMPHOCYTES % (AUTO) 17 % (12-44); MEAN CORPUSCULAR HEMOGLOBIN 30 pg (25-34); MEAN CORPUSCULAR HGB CONC 34 g/dL (32-36); MEAN CORPUSCULAR VOLUME 89 fL (80-99); MEAN PLATELET VOLUME 10.3 fL (9.0-12.2); MONOCYTES # (AUTO) 0.4 10^3/uL (0.0-1.0); MONOCYTES % (AUTO) 6 % (0-12); NEUTROPHILS # (AUTO) 5.2 10^3/uL (1.8-7.8); NEUTROPHILS % (AUTO) 74 % (42-75); PLATELET COUNT 128 10^3/uL (130-400); WHITE BLOOD COUNT 6.9 10^3/uL (4.3-11.0)
[2020-03-09 15:40] LABS: ALBUMIN 3.9 GM/DL (3.2-4.5); BILIRUBIN,TOTAL 0.4 MG/DL (0.1-1.0); CALCIUM 9.4 MG/DL (8.5-10.1); CREATININE SERUM 1.45 MG/DL (0.60-1.30); POTASSIUM 3.8 MMOL/L (3.6-5.0); TOTAL PROTEIN 6.6 GM/DL (6.4-8.2)
== END ==
LOC: EDSTATUS 05-22 13:58 → ONC 14:54
PROVIDERS: ATTEND Internal Medicine Hematology & Oncology
DX: D47.2 Monoclonal gammopathy (principal); D63.1 Anemia in chronic kidney disease; N18.31 Chronic kidney disease, stage 3a
CPT/HCPCS: 80053; 82232; 82784 ×3; 83883; 84165; 85025; G0463; 84155; 99213

== ENCOUNTER 2020-03-21 21:09 | Emergency (ER) | payer MEDICARE ==
[~2020-03-21] VITALS: Ht 177.8 cm; Wt 81.6 kg
[~2020-03-21 21:09] MED LIST changes: -AZIT500T PO; -BENZ100C18 PO; -D-ME473S11 PO
--- NOTE | 2020-03-21 22:36 | ED Cough/URI ---
General Chief Complaint: Cough/Cold/Flu Symptoms Stated Complaint: SORE THROAT/WAITING ON COVID RESULTS Nursing Triage Note: TO ED VIA POV AND TO ROOM 10 UNDER COVID 19 PRECAUTIONS R/T C/O COUGH, SORE THROAT, AND RECENT EXPOSURE TO SOMEONE WITH COVID 19. PT STATES HE HAD COVID SWAB TODAY AT [facility], BUT NO RESULTS YET. DENIES FEVER, SOA, LOSS OF TAST OR SMELL, BODY ACHES. STATES HE THOUGHT HE SHOULD COME TO THE ER BEFORE HE GOT WORSE. Sepsis Screen: No Definite Risk Source: patient History of Present Illness Date Seen by Provider: Mar 21, 2020 Time Seen by Provider: 22:05 Initial Comments PT ARRIVES VIA POV FROM HOME C/O SORE THROAT C/O SLIGHT NON-PRODUCTIVE COUGH NO CHEST PAIN NO SHORTNESS OF BREATH NO FEVER/SWEATS/CHILLS NO LOSS OF TASTE OR SMELL NO NAUSEA/VOMITING/DIARRHEA NO HEADACHE NO BODY ACHES SYMPTOMS BEGAN WITH A COUGH ON MONDAY NIGHT 03/18/20 STATES HE HAS RECENT EXPOSURE TO SOMEONE WITH COVID-19, SO WAS TESTED TODAY AT [facility], BUT NO RESULTS FOR A FEW DAYS SO CAME HERE TONIGHT, "BEFORE HE GOT WORSE" STATES THAT HE HAS BEEN IN [facility] UNTIL YESTERDAY, AND HAS BEEN EXPOSED OVER THE LAST 10-12 DAYS, AND 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 PT DOES NOT HAVE ANY CHRONIC RESPIRATORY PROBLEMS--HAS HAD PNEUMONIA X 1. PT IS A FORMER SMOKER PT WITH MULTIPLE CO-MORBIDITIES, INCLUDING IDDM, CAD, PVD, STAGE 4 KIDNEY DISEASE, OTHERS. PCP: DR. DUFFY--RECENTLY ESTABLISHED--ONE TELE-VISIT. WAS PREVIOUSLY A PT OF DR. GELLER'S Allergies and Home Medications Allergies Coded Allergies: No Known Drug Allergies (Unverified , 07/01/18) Home Medications Acetaminophen 325 Mg Tablet, 650 MG PO Q4H PRN for PAIN-MILD, (Reported) Albuterol Sulfate 1 Puff Puff, 2 PUFF IH Q4H PRN for WHEEZING 1 PUFF = 90 MCG Prescribed by: VALENTINE THOMASON on 07/09/18 1225 Ascorbic Acid 500 Mg Tablet, 500 MG PO DAILY, (Reported) Aspirin 81 Mg Tablet.dr, 81 MG PO DAILY, (Reported) Atorvastatin Calcium 80 Mg Tablet, 80 MG PO DAILY, (Reported) Azithromycin 500 Mg Tablet, 500 MG PO DAILY Prescribed by: GRACE COX on 03/21/202300 Benzonatate 100 Mg Capsule, 200 MG PO TID Prescribed by: GRACE COX on 03/21/202300 Bethanechol Chloride 25 Mg Tablet, 25 MG PO ACHS Prescribed by: JUAQUIN DAWN on 07/04/18 1506 Bisacodyl 10 Mg Supp.rect, 10 MG RC DAILY PRN for CONSTIPATION-4TH LINE, (Reported) Bupropion HCl 150 Mg Tab.er.24h, 150 MG PO DAILY, (Reported) Carvedilol 3.125 Mg Tablet, 3.125 MG PO BID, (Reported) HOLD IF SBP<100 OR DBP<60 OR PULSE </= 60 Cefdinir 300 Mg Capsule, 300 MG PO BID Prescribed by: VALENTINE THOMASON on 07/09/18 1225 Cholecalciferol (Vitamin D3) 2,000 Unit Capsule, 2,000 UNIT PO DAILY, (Reported) Docusate Sodium 100 Mg Capsule, 200 MG PO DAILY, (Reported) Furosemide 40 Mg Tablet, 40 MG PO BID, (Reported) Hydrocodone/Acetaminophen 1 Each Tablet, 1 EACH PO Q4-6HR PRN for PAIN-MODERATE Prescribed by: JAMIE VELAZQUEZ on 09/16/19 1507 Insulin Lispro 100 Unit/1 Ml Vial, PER PUMP, (Reported) Levothyroxine Sodium 25 Mcg Tablet, 25 MCG PO DAILY, (Reported) Levothyroxine Sodium 150 Mcg Tablet, 150 MCG PO DAILY, (Reported) TAKES ALONG WITH 25MCG TABLET Lisinopril 5 Mg Tablet, 5 MG PO DAILY, (Reported) HOLD IF SBP<100 OR DBP<60 Magnesium Hydroxide 400 Mg/5 Ml Oral.susp, 30 ML PO DAILY PRN for CONSTIPATION- 7TH LINE, (Reported) Melatonin 5 Mg Capsule, 5 MG PO HS, (Reported) Multivit-Min/FA/Lycopene/Lut 1 Each Tablet, 1 TAB PO DAILY, (Reported) Na Phos,M-B/Na Phos,Di-Ba 133 Ml Enema, 133 ML RC DAILY PRN for CONSTIPATION, (Reported) Nitroglycerin 0.4 Mg Tab.subl, 0.4 MG SL UD PRN for CHEST PAIN, (Reported) [place] 3 Polyunsat Fatty Acids 1,000 Mg Cap, 1,000 MG PO QID, (Reported) Pantoprazole Sodium 40 Mg Tablet.dr, 40 MG PO DAILY, (Reported) Pregabalin 200 Mg Capsule, 200 MG PO BID, (Reported) Promethazine/Dextromethorphan 473 Ml Syrup, 5 ML PO Q4H Prescribed by: GRACE COX on 03/21/20 2301 Sertraline HCl 100 Mg Tablet, 200 MG PO DAILY, (Reported) TAKES 2 (100MG) TABLETS Tamsulosin HCl 0.4 Mg Cap, 0.4 MG PO DAILY, (Reported) Tamsulosin HCl 0.4 Mg Cap, 0.4 MG PO DAILY Prescribed by: JUAQUIN DAWN on 07/04/18 1503 Patient Home Medication List Home Medication List Reviewed: Yes Review of Systems Review of Systems Constitutional: no symptoms reported; No chills, No diaphoresis, No dizziness, No fever, No malaise, No weakness EENTM: see HPI, throat pain; No nose congestion Respiratory: see HPI, cough; No phlegm, No short of breath, No wheezing Cardiovascular: no symptoms reported; No chest pain Gastrointestinal: no symptoms reported; No abdominal pain, No diarrhea, No loss of appetite, No nausea, No vomiting Genitourinary: no symptoms reported Musculoskeletal: no symptoms reported Skin: no symptoms reported Psychiatric/Neurological: No Symptoms Reported; Denies Headache Hematologic/Lymphatic: No Symptoms Reported Immunological/Allergic: no symptoms reported Past Tstmjyl-Dbqacj-Aucdlx Hx Past Med/Social Hx: Reviewed and Corrections made Patient Social History Alcohol Use: Denies Use Recreational Drug Use: No Smoking Status: Former Smoker Type Used: Pipe 2nd Hand Smoke Exposure: No Recent Foreign Travel: No Contact w/Someone Who Travel: No Recent Infectious Disease Expo: No Recent Hopitalizations: No Physical Abuse: No Sexual Abuse: No Mistreated: No Fear: No Immunizations Up To Date Tetanus Booster (TDap): More than 5yrs PED Vaccines UTD: No Date of Pneumonia Vaccine: Apr 03, 2018 Date of Influenza Vaccine: Jan 01, 2018 Seasonal Allergies Seasonal Allergies: No Past Medical History Surgeries: Yes (RIGHT LOWER LEG AMPUTATION) Amputation, Cardiac, CABG, Orthopedic, Vascular Surgery Respiratory: Yes Pneumonia Currently Using CPAP: No Currently Using BIPAP: No Cardiac: Yes (CABG X4 1997, [place] 1997, DVT R THIGH 1997; CHF) Coronary Artery Disease, Deep Vein Thrombosis, Heart Attack, High Cholesterol, Hypertension, Peripheral Vascular Neurological: Yes Neuropathy Reproductive Disorders: No Sexually Transmitted Disease: No HIV/AIDS: No Genitourinary: Yes (GFR 40-45%) Renal Failure Gastrointestinal: No Musculoskeletal: Yes (RIGHT BELOW KNEE AMP 2016) Amputee, Fractures Endocrine: Yes (TYPE 1 DIABETES) Parathyroid Disease, Diabetes, Insulin dep, Hypothyroidsim HEENT: No Loss of Vision: Denies Hearing Impairment: Denies Cancer: No Psychosocial: Yes Anxiety, Depression Integumentary: No Blood Disorders: Yes (ANEMIA ) Adverse Reaction/Blood Tranf: No Family Medical History Cardiovascular disease 19 MOTHER Heart Disease, Cancer, Diabetes Physical Exam Vital Signs - First Documented 03/21/20 23:30 Pulse Ox 99 Capillary Refill : Less Than 3 Seconds Height: 5'10.00" Weight: 170lbs. 0.0oz. 77.692310la; 25.00 BMI Method:Stated General Appearance: WD/WN, no apparent distress, other (DOES NOT APPEAR ILL OR TO BE IN ANY DISCOMFORT OR DISTRESS) HEENT: PERRL/EOMI, TMs normal, pharyngeal erythema (VERY MILD) Neck: normal inspection Respiratory: normal breath sounds, no respiratory distress, no accessory muscle use Cardiovascular: regular rate, rhythm, no murmur Gastrointestinal: non tender, soft Neurologic/Psychiatric: alert, normal mood/affect, oriented x 3 Skin: normal color, warm/dry Progress/Results/Core Measures Suspected Sepsis Recent Fever Within 48 Hours: No Infection Criteria Present: Suspected New Infection New/Unexplained Altered Menta: No Sepsis Screen: No Definite Risk SIRS Temperature: Pulse: 62 Respiratory Rate: 16 Blood Pressure 153 /95 Mean: 114 Results/Orders Lab Results Laboratory Tests Test 03/21/20 22:08 Range/Units Coronavirus 2019 ([facility]) Positive H Negative Group A Streptococcus Screen NEGATIVE NEGATIVE Micro Results Microbiology 03/21/20 Influenza Types A,B Antigen (MERLENE) - Final, Complete My Orders Orders - GRACE COX DO Rapid Strep A Screen (03/21/20 22:03) Chest 1 View, Ap/Pa Only (03/21/20 22:03) Covid 19 Inhouse Test (03/21/20 22:03) Influenza A And B Antigens (03/21/20 22:12) Azithromycin Tablet (Zithromax Tablet) (03/21/20 23:00) Benzonatate Capsule (Tessalon Perles) (03/21/20 23:00) Promethazine/ Codeine Syrup (Phenergan W (03/21/20 23:00) Medications Given in ED Current Medications Medications Dose Ordered Sig/Isaias Route Start Time Stop Time Status Last Admin Dose Admin Azithromycin 500 mg ONCE ONCE PO 03/21/20 23:00 03/21/20 23:01 DC 03/21/20 23:17 500 MG Promethazine HCl/ Codeine 5 ml ONCE ONCE PO 03/21/20 23:00 03/21/20 23:01 DC 03/21/20 23:17 5 ML Vital Signs/I&O 03/21/20 03/21/20 03/21/20 21:54 21:54 23:30 Temp 37.4 37.4 Pulse 62 59 Resp 16 16 B/P (MAP) 153/95 (114) 145/89 (114) Pulse Ox 99 O2 Delivery Room Air Room Air Room Air Capillary Refill : Less Than 3 Seconds Blood Pressure Mean: 114 Progress Note : Progress Note PLACED IN ISOLATION ROOM PPE WORN AT ALL TIMES RAPID COVID TEST PERFORMED PT ADVISED OF NEED FOR QUARANTINE--STATES HE LIVES ALONE ALSO ADVISED TO TAKE FULL ASPIRIN DAILY OCCASIONAL COUGH, NO DYSPNEA, NO HYPOXIA DURING ER STAY DEFERRED OBTAINING LAB, PT DOES NOT HAVE OBVIOUS PNEUMONIA ON CXR, NO HYPOXIA, NO DYSPNEA, NO GI SYMPTOMS OR SYMPTOMS OF DEHYDRATION, NO SIGNIFICANT FEVER. Diagnostic Imaging Comments CXR--NO ACUTE PROCESS, PENDING RADIOLOGIST REVIEW Reviewed: Reviewed by Me Departure Impression Primary Impression: COVID-19 virus infection Disposition: HOME, SELF-CARE Condition: Stable Departure-Patient Inst. Referrals: TADEO DUFFY MD (PCP) Primary Care Physician Patient Instructions: Coronavirus Disease 2019 (COVID-19) (DC), Preventing the Spread of an Infectious Disease Add. Discharge Instructions: LOTS OF CLEAR LIQUIDS TYLENOL NEEDED FOR PAIN OR FEVER CONTINUE YOUR REGULAR MEDICATIONS USUAL, EXCEPT INCREASE YOUR ASPIRIN DOSE TO 324 MG DAILY FOLLOW UP WITH DR. DUFFY NEXT WEEK--CALL ON MONDAY FOR APPOINTMENT RETURN TO ER IF SYMPTOMS WORSEN QUARANTINE FOR THE NEXT 14 DAYS, OR UNTIL CLEARED BY YOUR DR OR HEALTH DEPT All discharge instructions reviewed with patient and/or family. Voiced understanding. Scripts Promethazine/Dextromethorphan (Promethazine-Dm Syrup) 473 Ml Syrup 5 ML PO Q4H for Cough, #200 ML Prov: GRACE COX DO 03/21/20 Benzonatate (TESSALON PERLES) 100 Mg Capsule 200 MG PO TID, #30 CAP Prov: GRACE COX DO 03/21/20 Azithromycin (Zithromax) 500 Mg Tablet 500 MG PO DAILY for 5 Days, #5 TAB Prov: GARCE COX DO 03/21/20 GRACE COX DO Mar 21, 2020 22:36
[2020-03-21] MEDS ORDERED: AZITHROMYCIN 250 MG TAB (ZITHROMAX) PO ONE (23:00)
[2020-03-21] MEDS ORDERED: BENZONATATE 100 MG (TESSALON) CAPSULE PO SCH (23:00)
[2020-03-21] MEDS ORDERED: PROMETHAZINE/ CODEINE SYRUP 5 ML UDC PO ONE (23:00)
[2020-03-21] MEDS ORDERED: BENZ100C18 PO (23:01)
[2020-03-21] MEDS ORDERED: AZIT500T PO (23:01)
[2020-03-21] MEDS ORDERED: D-ME473S11 PO (23:01)
[2020-03-21 23:30] VITALS: BP 145/89
--- NOTE | 2020-03-22 06:06 | Diagnostic Imaging Report ---
EXAMINATION: Portable erect AP chest at 10:26 PM INDICATION: Cough and congestion The heart size is within normal limits and stable when compared to 07/09/2018. The sternotomy wires and surgical clips noted previously are again evident and no different. The lungs are clear. There is no sign of failure, pneumonia or pleural effusion. The mediastinum is not widened. The osseous structures are intact. IMPRESSION: There is no evidence for active disease. Dictated by: Dictated on workstation # [id number]
== END 2020-03-21 23:30 | disposition home or self-care (01) ==
LOC: EDUNIT# 21:09 → ER 21:10
DX: U07.1 COVID-19 (principal); F41.9 Anxiety disorder, unspecified; F32.9 Major depressive disorder, single episode, unspecified; I25.2 Old myocardial infarction; E03.9 Hypothyroidism, unspecified; E10.9 Type 1 diabetes mellitus without complications; E78.00 Pure hypercholesterolemia, unspecified; I10 Essential (primary) hypertension; Z82.49 Family history of ischemic heart disease and other diseases of the circulatory system; Z83.3 Family history of diabetes mellitus; Z80.9 Family history of malignant neoplasm, unspecified; Z95.1 Presence of aortocoronary bypass graft; Z87.891 Personal history of nicotine dependence; Z79.890 Hormone replacement therapy; Z79.82 Long term (current) use of aspirin
CPT/HCPCS: 71045; 87430; 87804; 99283; U0002; 87635